=== PATIENT | female | born 1960 | race Caucasian/White ===

== ENCOUNTER 2016-10-17 18:26 | Emergency (ER) | payer MEDICAID ==
[2016-10-17] MEDS ORDERED: ONDANSETRON HCL INJ/PF 4 MG/2 ML SDV IV ONE (18:39)
--- NOTE | 2016-10-17 18:49 | ER Document Report ---
ED General - General Stated Complaint: POSSIBLE SYNCOPE Notes: 56-year-old female presents to the ED after an episode of severe abdominal pain. She was actually in the department because her is a patient, and when she was seen in the room complaining of severe abdominal and back pain. At that point she was noted to be pale and diaphoretic with a blood pressure of 70 and was moved to the trauma room. Seen by me immediately upon arrival in the trauma room. Patient is in severe pain and having trouble answering questions but she does say that she has severe lower abdominal pain radiating to her back abruptly onset today about 50 minutes ago. She has no shortness of breath or chest pain. She has had this kind of pain before and has been to [facility] after her aortic operation with pain like this but has not been reoperated on. Does not know what procedure she had or the name of the surgeon. Also possibly has stents in her heart but denies history of a heart attack. TRAVEL OUTSIDE OF THE [place] IN LAST 30 DAYS: No - Related Data Allergies/Adverse Reactions: No Known Allergies Allergy (Verified 07/15/15 06:09) Past Medical History - Social History Smoking Status: Current Every Day Smoker Family History: Hypertension - Past Medical History Cardiac Medical History: Reports: Hx Hypercholesterolemia, Hx Hypertension Pulmonary Medical History: Reports: Hx Bronchitis, Hx COPD, Hx Pneumonia Denies: Hx Tuberculosis Musculoskeltal Medical History: Reports Hx Arthritis Psychiatric Medical History: Reports: Hx Depression Past Surgical History: Reports: Hx Cholecystectomy, Hx Hysterectomy, Hx Tubal Ligation. Denies: Hx Pacemaker - Immunizations Hx Diphtheria, Pertussis, Tetanus Vaccination: Yes Hx Pneumococcal Vaccination: 01/29/15 Review of Systems - Review of Systems Notes: REVIEW OF SYSTEMS GEN: Denies fever, chills, weight loss ENT: Denies sore throat, nasal discharge, ear pain EYES: Denies blurry vision, eye pain, discharge CV: Denies chest pain, palpitations, edema RESP: Denies cough, shortness of breath, wheezing GI: Severe abdominal pain nausea vomiting MSK: Denies joint pain/swelling, edema, SKIN: Denies rash, skin lesions LYMPH: Denies swollen glands/lymph nodes NEURO: Denies headache, focal weakness or numbness, dizziness PSYCH: Denies depression, suicidal or homicidal ideation PHYSICAL EXAMINATION General: Pale in distress crying Head: Atraumatic, normocephalic ENT: Mouth normal, oropharynx moist, no exudates or tonsillar enlargement Eyes: Conjunctiva normal, pupils equal, lids normal Neck: No JVD, supple, no guarding CVS: Normal rate, regular rhythm, no murmurs Resp: No resp distress, equal and normal breath sounds bilaterally GI: Nondistended, soft, diffuse tenderness without rebound. Midline scar well- healed. Ext: No deformities, no edema, normal range of motion in upper and lower ext. Intact pedal pulses and cap refill bilaterally. Back: No CVA or midline TTP Skin: No rash, warm Lymphatic: No lymphadeopathy noted Neuro: Awake, alert. Face symmetric. GCS 15. Physical Exam - Vital signs Vitals: Resp 13 10/17/16 18:49 Course - Re-evaluation Re-evalutation: 10/17/16 18:47 Acutely ill patient seen immediately by me on arrival. Severe abdominal pain in a patient with a known aortic aneurysm accompanied by pallor sweating and pressure of 70. Throughout her stay in the trauma room in the initial 20 minutes her pressure remained above 120. She had mild tachycardia. In terms of her exam other than her distress she has a nonfocal exam and has good peripheral pulses. I attempted to do a fast scan as well as an aortic scan but the patient retched and vomited and kept moving well I tried to place the probe on her abdomen. Visualized the right upper quadrant and did not see free fluid but had to abort the exam. Her differential includes leaking or ruptured aortic aneurysm new aortic dissection, acute coronary syndrome, pancreatitis or other perforated viscus. Plan will be to do a CT angiogram of the chest abdomen pelvis with the waving of her creatinine, provide fluids and get labs including troponin. Her initial EKG is nonischemic. 10/17/16 19:11 Patient's blood pressure to the 70s. Came up with 1 L of fluid. Ordered CTA but holding the patient's her blood pressure improves. I see an aortic aneurysm which appears to have a graft with poor flow. There is no free fluid. I also see that the patient has a pericardial effusion with some internal echoes and borderline right ventricular bowing. At this point I am concerned for hemorrhagic pericardial effusion versus type a dissection. I immediately placed a call to the I am concerned for AAA. The patient is now more comfortable and can allow me to perform an ultrasound. Divided transfer center at 7:10 PM to speak with cardiothoracic surgery. They provided me the following history about the patient. H/o endovasc AAA repair with graft and bilat renal NILESH 2014. 10/17/16 19:33 I spoke with from findings with cardiovascular surgery. Time I spoke with him I do not have the CT results but I told him of my concerns. He stated that if there is a vascular issue going on he would be happy to accept the patient. Awaiting CT results. My pulmonary read shows extensive penetrating ulcers in the upper aorta without clear dissection or aneurysm, and an intact aortic graft without endoleak. 10/17/16 19:42 Patient is back from CT and her blood pressure is in the 110s. She did get a unit of blood which I ordered. 10/17/16 21:[address] Rivero hospitalist. Dr. Polanco had communicated with patient' s vascular surgeon Dr. Brandon who stated that at this point given her degree of renal artery thrombosis there is not intervene able lesion and they would not do surgery. It also did not mention anticoagulation. Defer this to hospitalist. Dr. Almanza the hospital as he refused admission. 10/17/16 21:30 Vital signs stable sleeping comfortably. - Vital Signs Vital signs: Temp Pulse Resp BP Pulse Ox 97.6 F 16 114/81 94 10/17/16 19:36 10/17/16 21:01 10/17/16 21:01 10/17/16 21:01 - Laboratory Result Diagrams: 10/17/16 18:47 10/17/16 18:47 Laboratory results interpreted by me: 10/17/16 10/17/16 18:47 18:47 WBC 14.4 H RDW 17.1 H Seg Neuts % (Manual) 35 L Lymphocytes % (Manual) 58 H Monocytes % (Manual) 2 L Abs Lymphs (Manual) 9.1 H Carbon Dioxide 21 L Creatinine 1.49 H Est GFR ( Amer) 43 L Est GFR (Non-Af Amer) 36 L - Diagnostic Test Radiology reviewed: Image reviewed, Reports reviewed - EKG Interpretation by Me EKG shows normal: Sinus rhythm Rate: Normal - No acute ST or T-wave changes Critical Care Note - Critical Care Note Total time excluding time spent on procedures (mins): 75 - The above patient is critically ill. Not including procedures, but including direct re-evaluations, speaking with patient and/or consultants, interpreting results, and documenting , I spent the total amount of minute listed listed above on critical care time Discharge - Discharge Clinical Impression: Hypotension Qualifiers: Hypotension type: other hypotension type Qualified Code(s): I95.89 - Other hypotension
[2016-10-17 19:07] LABS: HEMATOCRIT 44.4 % (36.0-47.0); HEMOGLOBIN 14.5 g/dL (12.0-15.5); HGB HCT DIFFERENCE -0.9; MEAN CORPUSCULAR HEMOGLOBIN 27.5 pg (27.0-33.4); MEAN CORPUSCULAR HGB CONC 32.6 g/dL (32.0-36.0); MEAN CORPUSCULAR VOLUME 84 fl (80-97); RED BLOOD COUNT 5.27 10^6/uL (3.72-5.28); RED CELL DISTRIBUTION WIDTH 17.1 % (11.5-14.0); WHITE BLOOD COUNT 14.4 10^3/uL (4.0-10.5)
[2016-10-17 19:37] LABS: ANISOCYTOSIS 1+; BASOPHILS % (MANUAL) 0 % (0-2); EOSINOPHILS % (MANUAL) 0 % (0-6); HYPOCHROMASIA SLIGHT; LYMPHOCYTES % (MANUAL) 58 % (13-45); PLATELET CLUMPS PRESENT; TOTAL CELLS COUNTED 100
[2016-10-17] MEDS ORDERED: FENTANYL CITRATE INJ/PF 100 MCG/2 ML AMPUL IV ONE (20:09)
--- NOTE | 2016-10-17 20:18 | RADIOLOGY REPORT (SQ) ---
EXAM DESCRIPTION: CTA CHEST COMPLETED DATE/TIME: 10/17/2016 7:26 pm REASON FOR STUDY: abdominal pain, h/o aortic aneurysm COMPARISON: Chest CT 07/15/2015 TECHNIQUE: CT scan of the chest performed using helical scanning technique with dynamic intravenous contrast injection. Images reviewed with lung, soft tissue and bone windows. Reconstructed coronal and sagittal MPR images reviewed. Additional 3 dimensional post-processing performed to develop Maximal Intensity Projection images ([place] P). All images stored on PACS. All CT scanners at this facility use dose modulation, iterative reconstruction, and/or weight based d osing when appropriate to reduce radiation dose to as low as reasonably achievable (ALARA). [facility]: Dose Right [facility]: CareDose [facility]: Dose Right [facility]: Teradose 4D [facility]: Smart [employer] CONTRAST TYPE AND DOSE: contrast/concentration: Isovue 370.00 mg/ml; Total Contrast Delivered: 100.0 ml; Total Saline Delivered: 60.0 ml RENAL FUNCTION: Due to the condition of the patient, renal function not obtained RADIATION DOSE: . LIMITATIONS: None. FINDINGS: LUNGS AND PLEURA: No masses, infiltrates, pneumothorax. No pleural effusions, calcificati ons. AORTA AND GREAT VESSELS: Extensive atherosclerotic change. There is a small focal aneurysm along the inferior aortic arch which is stable in appearance since 11/01/2015. Mural thrombus diffusely identif ied. No evidence for the extravasation. HEART: No pericardial effusion. PULMONARY ARTERIES: No emboli visualized in the main pulmonary arteries or the segmental branches. HILAR AND MEDIASTINAL STRUCTURES: No identified masses or abnormal nodes. HARDWARE: None in the chest. UPPER ABDOMEN: See abdomen CT. THYROID AND OTHER SOFT TISSUES: No masses. No adenopathy. BONES: No acute or significant finding. 3D MIPS: Confirm above findings. OTHER: No other significant finding. IMPRESSION: Diffuse atherosclerotic change of the thoracic aorta with mural thrombus and a small inf erior aneurysm along the aortic arch which is unchanged. No acute findings. TECHNICAL DOCUMENTATION: JOB ID: [id number] Quality ID # [id number]: Final reports with documentation of one or more dose reduction techniques (e.g., Au tomated exposure control, adjustment of the mA and/or kV according to patient size, use of iterative reconstruction technique) 2010 [employer]- All Rights Reserved
--- NOTE | 2016-10-17 20:30 | RADIOLOGY REPORT (SQ) ---
EXAM DESCRIPTION: CTA ABDOMEN/PELVIS W WO COMPLETED DATE/TIME: 10/17/2016 7:27 pm REASON FOR STUDY: abdominal pain, h/o aortic aneurysm COMPARISON: 2015 back to 2011 TECHNIQUE: CT scan of the abdominal aorta extending to the iliac bifurcation performed with intraven ous contrast using helical scanning technique with dynamic intravenous contrast injection. Images rev iewed with lung, soft tissue, and bone windows. Reconstructed coronal and sagittal MPR images reviewe d. All images stored on PACS. Advanced 3D imaging as volume rendering, MIPS, SSD performed? No All CT scanners at this facility use dose modulation, iterative reconstruction, and/or weight based d osing when appropriate to reduce radiation dose to as low as reasonably achievable (ALARA). [facility]: Dose Right [facility]: CareDose [facility]: Dose Right [facility]: Teradose 4D [facility]: [employer] ( HLM ) CONTRAST TYPE AND DOSE: 100 Isovue 370- low osmolar. RENAL FUNCTION: Not performed. Emergency status LIMITATIONS: None. FINDINGS: POST-CONTRAST IMAGING: AORTA AND VESSELS: Status post stent graft abdominal aortic aneurysm. No evidence for endovascular l eak. LUNG BASES: No significant findings. No nodules or infiltrates. LIVER: Normal size. No masses or dilated ducts. SPLEEN: Normal size. No focal lesions. PANCREAS: No masses. No significant calcifications. No adjacent inflammation or peripancreatic fluid collections. Pancreatic duct not dilated. GALLBLADDER: Surgically absent. ADRENAL GLANDS: Left adrenal mass now measures 4.7 cm compared to 4 cm and 2012. Indeterminate Houns field units. RIGHT KIDNEY AND URETER: No mass, calculi or urinary tract obstruction. LEFT KIDNEY AND URETER: Poor perfusion of the left kidney. No contrast in the collecting system on d elayed images. No obstruction. RETROPERITONEUM: No retroperitoneal adenopathy, hemorrhage or masses. BOWEL AND PERITONEAL CAVITY: No masses or inflammatory changes. No free fluid or peritoneal masses. APPENDIX: Normal. ABDOMINAL WALL: No masses. No hernias. BONY STRUCTURES: No significant or acute findings. 3-D IMAGING: Confirms the above findings. OTHER: No other significant finding. IMPRESSION: Aortic stent graft. No evidence for leak of the treated aneurysm. Renal stents. Poor perfusion of the left kidney with no contrast in the collecting system on delayed images. Suspe ct emboli. Slight increased size of the left adrenal gland since 2011. COMMENT: This report was called to dr greer at20:24 on 10/17/2016. TECHNICAL DOCUMENTATION: JOB ID: [id number] Quality ID # [id number]: Final reports with documentation of one or more dose reduction techniques (e.g., Au tomated exposure control, adjustment of the mA and/or kV according to patient size, use of iterative reconstruction technique) 2010 [employer]- All Rights Reserved
[2016-10-17 21:01] LABS: ANION GAP 18 (5-19); BLOOD UREA NITROGEN 14 mg/dL (7-20); CALCIUM 9.8 mg/dL (8.4-10.2); CARBON DIOXIDE 21 mmol/L (22-30); CHLORIDE 103 mmol/L (98-107); CREATININE RESULT 1.49 mg/dL (0.52-1.25); GLUCOSE 107 mg/dL (75-110); POTASSIUM 4.2 mmol/L (3.6-5.0); SODIUM 141.5 mmol/L (137-145)
[2016-10-18] MEDS: MORPHINE SULFATE IR 30 MG TABLET PO PRN ×2 (00:22→05:40)
[2016-10-18 02:27] LABS: APPEARANCE,URINE CLEAR; BILIRUBIN,URINE NEGATIVE (NEGATIVE); GLUCOSE, URINE NEGATIVE (NEGATIVE); KETONES,URINE NEGATIVE (NEGATIVE); LEUKOCYTE ESTERASE,URINE NEGATIVE (NEGATIVE); NITRITE,URINE NEGATIVE (NEGATIVE); PROTEIN,URINE NEGATIVE (NEGATIVE); URINE SPECIFIC GRAVITY 1.044; UROBILINOGEN,URINE NEGATIVE mg/dL (<2.0)
[2016-10-18 07:08] LABS: ANION GAP 9 (5-19); BLOOD UREA NITROGEN 13 mg/dL (7-20); CALCIUM 8.7 mg/dL (8.4-10.2); CARBON DIOXIDE 23 mmol/L (22-30); CHLORIDE 108 mmol/L (98-107); CREATININE RESULT 1.53 mg/dL (0.52-1.25); GLUCOSE 84 mg/dL (75-110); POTASSIUM 4.8 mmol/L (3.6-5.0); SODIUM 140.1 mmol/L (137-145)
--- NOTE | 2016-10-18 08:17 | ER Document Report ---
Doctor's Note Notes: 10/18/16 08:15 CARE signed out to me by Dr. Romero ED and at 0 6 AM. Patient is pending transfer to [facility] and has been here for 10 hours awaiting a bed. Nurses have called this morning and is no update status on the bed currently. Seen and evaluated at the bedside review of history shows that she presented 1846 last night with severe abdominal pain radiating into her back with history of abdominal aortic aneurysm. Blood pressure was in the 70s around 1910 she received 1 L of fluid they consulted CT thoracic surgery Dr. Brandon in [place] who was previously operated on her. Also talked with Dr. Jenkins phone and patient was administered blood. According to the notes Dr. Lara that she said it was not surgical at this point CTA showed a mural thrombus with inferior aneurysm and poor perfusion to the left kidney with no flow suspecting emboli. She is assessed at the bedside awake alert a little drowsy from the pain medication that she has received planing of similar abdominal and back pain that she had when she came in last night. She has equal bilateral femoral dorsalis pedis posterior tibial pulses with good perfusion and no neurological deficits distally. Blood pressure is currently 98/69. I am redrawing a CBC at this time.
[2016-10-18] MEDS ORDERED: ONDANSETRON HCL INJ/PF 4 MG/2 ML SDV IV ONE (08:18)
[2016-10-18 08:33] LABS: ABSOLUTE BASOPHILS # (AUTO) 0.1 10^3/uL (0.0-0.2); ABSOLUTE EOSINOPHILS # (AUTO) 0.1 10^3/uL (0.0-0.6); ABSOLUTE LYMPHOCYTES (AUTO) 3.3 10^3/uL (0.5-4.7); ABSOLUTE MONOCYTES (AUTO) 0.6 10^3/uL (0.1-1.4); ABSOLUTE NEUT (AUTO) 6.2 10^3/uL (1.7-8.2); BASOPHILS % (AUTO) 1.1 % (0-2); EOSINOPHILS % (AUTO) 1.2 % (0-6); HEMOGLOBIN 13.5 g/dL (12.0-15.5); HGB HCT DIFFERENCE -0.5; LYMPHOCYTES % (AUTO) 31.9 % (13-45); MEAN CORPUSCULAR HEMOGLOBIN 27.6 pg (27.0-33.4); MEAN CORPUSCULAR HGB CONC 32.9 g/dL (32.0-36.0); MEAN CORPUSCULAR VOLUME 84 fl (80-97); MONOCYTES % (AUTO) 5.9 % (3-13); RED BLOOD COUNT 4.88 10^6/uL (3.72-5.28); RED CELL DISTRIBUTION WIDTH 17.2 % (11.5-14.0); SEGMENTED NEUTROPHILS % (AUTO) 59.9 % (42-78); WHITE BLOOD COUNT 10.4 10^3/uL (4.0-10.5)
[2016-10-18] MEDS ORDERED: NORMAL SALINE 1000 ML 1,000 ML IV ONE (10:01)
--- NOTE | 2016-10-18 10:01 | ER Document Report ---
Doctor's Note Notes: 10/18/16 09:59 Patient reassessed at bedside blood pressure is 87 I called [place] they do not have any beds available advice and I spoke with the nurse at the cardiovascular center who is able to read me the report from her repair. She said she had an endovascular AAA repair in July 2014 with an Endologix graft with bilateral renal chimney stent graft. They are contacting me back for vascular surgery for transfer to [place] she is getting additional fluid bolus.
--- NOTE | 2016-10-18 10:12 | ER Document Report ---
Doctor's Note Notes: 10/18/16 10:11 Emili Esteban called back and Dr. archibald vascular surgeon accepted the transfer the patient they are looking for a bed right now and will send helicopter transport. Patient is receiving IV fluid boluses reassessed again at the bedside awake and alert abdomen is soft good femoral dorsalis pedis posterior tibial distal pulses with good perfusion and no neurological deficit.
[2016-10-18 13:32] VITALS: BP 103/66
--- NOTE | 2016-10-19 16:16 | EKG REPORT ---
SEVERITY:- ABNORMAL ECG - SINUS RHYTHM NONSPECIFIC T ABNORMALITIES, LATERAL LEADS : Confirmed by: Chasity Welch MD 19-Oct-2016 16:16:25
--- NOTE | 2016-10-19 16:16 | EKG REPORT ---
SEVERITY:- BORDERLINE ECG - SINUS RHYTHM ABERRANT COMPLEX, POSSIBLY SUPRAVENTRICULAR PROBABLE LEFT ATRIAL ABNORMALITY : Confirmed by: Chasity Welch MD 19-Oct-2016 16:16:21
== END 2016-10-18 13:34 | disposition short-term general hospital (02) ==
LOC: ER 18:26
DX: I95.9 Hypotension, unspecified (principal); I71.2 Thoracic aortic aneurysm, without rupture; N28.0 Ischemia and infarction of kidney; I31.3 Pericardial effusion (noninflammatory); R11.10 Vomiting, unspecified; R10.30 Lower abdominal pain, unspecified; R10.817 Generalized abdominal tenderness; R61 Generalized hyperhidrosis; R11.2 Nausea with vomiting, unspecified; R23.1 Pallor; F17.200 Nicotine dependence, unspecified, uncomplicated; I10 Essential (primary) hypertension; J44.9 Chronic obstructive pulmonary disease, unspecified; Z90.49 Acquired absence of other specified parts of digestive tract; Z90.710 Acquired absence of both cervix and uterus; Z98.890 Other specified postprocedural states
CPT/HCPCS: 96376; 99291; 99292; 96361; 51702; 96374; 96375; 86900; 86901; 36415; 36430; 86870; 86850; 86922; 82962; 83690; 85025; 80048; 81001; 84484; 86920; 71275; 74174; 93010 ×2; P9016; J3010; J2405 ×2; J7030

== ENCOUNTER 2016-11-03 14:06 | Emergency (ER) | payer MEDICAID ==
[2016-11-03] MEDS ORDERED: NALOXONE HCL INJ/PF 0.4 MG/1 ML SDV ONE (14:20)
[2016-11-03] MEDS ORDERED: NALOXONE HCL INJ/PF 0.4 MG/1 ML SDV IV ONE ×2 (14:26→14:50)
[2016-11-03] MEDS ORDERED: NORMAL SALINE 1000 ML 1,000 ML IV ONE ×3 (14:26→18:08)
[2016-11-03] MEDS ORDERED: ONDANSETRON HCL INJ/PF 4 MG/2 ML SDV IV ONE (14:26)
--- NOTE | 2016-11-03 14:34 | ER Document Report ---
ED General - General Mode of Arrival: Medic Information source: Patient, Relative, Emergency Med Personnel TRAVEL OUTSIDE OF THE [place] IN LAST 30 DAYS: No <TIFFANIE HOYT - Last Filed: 11/03/16 22:32> <KRISTINA THOMSON - Last Filed: 11/04/16 00:07> - General Stated Complaint: AMS Time Seen by Provider: 11/03/16 14:12 Notes: Patient is a 56 year old female that presents to the emergency department today after not acting herself today per family at bedside. Patient is disoriented with snoring respirations on arrival. Daughter at bedside states that the patient was recently transferred to to a tertiary care center within the last two weeks secondary to "blood clots in her kidneys". Family states that this morning the patient was generally weak, unable to ambulate by herself to the bathroom, but had no focal neurological deficits. Daughter at bedside states when she woke up this morning the patient was covered in stool. Family states the patient has been coughing more than usual recently. Patient complains of nausea. Family states the patient is not on home oxygen. (TIFFANIE HOYT) - Related Data Allergies/Adverse Reactions: No Known Allergies Allergy (Verified 11/03/16 20:44) Past Medical History - General Information source: Relative - daughter at bedside, [facility] Records - Social History Smoking Status: Current Every Day Smoker Cigarette use (# per day): Yes Frequency of alcohol use: None Drug Abuse: None Lives with: Family Family History: Reviewed & Not Pertinent, Hypertension - Past Medical History Cardiac Medical History: Reports: Hx Hypercholesterolemia, Hx Hypertension Pulmonary Medical History: Reports: Hx Bronchitis, Hx COPD, Hx Pneumonia Renal/ Medical History: Reports: Other - "blood clots in kidneys" Musculoskeltal Medical History: Reports Hx Arthritis Psychiatric Medical History: Reports: Hx Depression Past Surgical History: Reports: Hx Cholecystectomy, Hx Hysterectomy, Hx Tubal Ligation - Immunizations Hx Diphtheria, Pertussis, Tetanus Vaccination: Yes Hx Pneumococcal Vaccination: 01/29/15 <TIFFANIE HOYT - Last Filed: 11/03/16 22:32> Review of Systems - Review of Systems -: Yes ROS unobtainable due to patient's medical condition <TIFFANIE HOYT - Last Filed: 11/03/16 22:32> Physical Exam <TIFFANIE HOYT - Last Filed: 11/03/16 22:32> <KRISTINA THOMSON - Last Filed: 11/04/16 00:07> - Vital signs Vitals: Resp 7 L 11/03/16 14:11 - Notes Notes: PHYSICAL EXAM GENERAL: Somnolent, disoriented, awakens and interacts after 0.2mg of narcan. No acute distress. HEAD: Normocephalic, atraumatic. EYES: Pupils are pinpoint bilaterally. Extraocular movements intact. ENT: Oral mucosa moist, tongue midline. NECK: Full range of motion. Supple. Trachea midline. LUNGS: Prolonged expiratory phase with expiratory wheezing bilaterally. Snoring respirations, 7-9 respirations a minute initially, 16-18 respirations a minute after 0.2mg narcan. HEART: Regular rate and rhythm. No murmurs, gallops, or rubs. ABDOMEN: Multiple areas of ecchymosis across abdomen. Soft, non-tender. Non- distended. Bowel sounds present in all 4 quadrants. EXTREMITIES: Moves all 4 extremities spontaneously. No edema, feet are cool to the touch bilaterally, No cyanosis. Diminished peripheral pulses, 6 second capillary refill in feet. NEUROLOGICAL: Disoriented, mumbled speech. PSYCH: unable to assess SKIN: Feet are cool to the touch bilaterally, dry, normal turgor. Diffuse areas of ecchymosis across abdomen. (TIFFANIE HOYT) Course - Laboratory Result Diagrams: 11/03/16 15:08 11/03/16 18:10 - Consults Dr. Armas Time consulted: 22:25 - [facility] Vascular Fellow, states he does not feel this patient needs direct admission, recommends ED to ED transfer and they will evaluate the patient upon her arrival. <TIFFANIE HOYT - Last Filed: 11/03/16 22:32> - Laboratory Result Diagrams: 11/03/16 15:08 11/03/16 22:30 <KRISTINA THOMSON - Last Filed: 11/04/16 00:07> - Re-evaluation Re-evalutation: 11/03/16 14:50 Patient's respirations again at 8 per minute, end-tidal CO2 davidson from 33 to 46. Patient arouses to verbal stimuli and the end-tidal CO2 falls appropriately when awakened. Will administer 0.2 mg of Narcan. 11/03/16 16:[address] Robbins about admission, he would like to rule out renal artery stenosis, occlusion, or hydronephrosis to be sure that surgical intervention by urology or vascular surgery is not necessary prior to admission. Dr. Robbins did speak with Dr. Lynch who informed him that the proper imaging could not be done at this facility. 11/03/16 17:[address] Somers, [facility] vascular surgery, agrees to consultation but does not believe he should admit the patient, states she should be admitted to medicine. He does note that the patient has been noncompliant with postoperative follow-up visits. 11/03/16 18:[address] Carnes, [facility] internal medicine, he is happy to accept the patient but does indicate there is a long waiting list. (TIFFANIE HOYT) 11/03/16 23:[address] Armas [facility] vascular fellow, agrees that the patient should be evaluated, does not feel the need a direct admission recommend speaking with the ER doc. Spoke with Dr. Kofi Joe at [facility] in the emergency department, agrees to accept the patient has an ER to ER transfer will order a renal artery ultrasound or other appropriate imaging there. 11/04/16 00:02 CBC does not show any leukocytosis, there is anemia with hemoglobin 10.9, CMP shows hyperkalemia with potassium 6.5, there are no peak T waves on EKG, there is acute renal failure significantly changed from prior visit, today BUN is 43 and creatinine is 3.5, LFTs are normal, urinalysis shows large leukocyte esterase and greater than 182 WBCs. Patient is treated with Rocephin for the urinary tract infection, hydrated for the acute renal failure, she now is having acceptable urine output. Hyperkalemia was treated with hydration, albuterol, insulin, glucose, sodium bicarb, calcium. Chest x-ray shows minimal right basilar atelectasis, CT scan of the head shows no acute process. Arterial blood gas shows a pH of 7.26, PCO2 42.5, PO2 of 87.3, suspect this is actually mixed rather than arterial, venous blood gas showed similar pH at 7.22. I did attempt to admit the patient to this hospital however I was told that she might need surgical intervention and he should perform imaging to investigate the possibility of renal artery occlusion or hydronephrosis. Dr. Robbins then discussed this case with Dr. Lynch the head of radiology who reportedly reviewed her CAT scan from approximately 2 weeks ago and stated that based off of the partial occlusion of the renal artery on the CAT scan there is no further imaging we can perform here that would give us any further information, recommends transfer to a facility with vascular surgery. I did discuss the patient with the vascular surgeon on-call at [facility] who agrees to consult but does not feel that they would need emergent intervention at this time. By internal medicine as indicated above is happy to accept the patient however there is a long waiting list. As this is potentially a time sensitive diagnosis needing further imaging and intervention I did consult [facility], vascular surgery fellow on-call agrees that the patient should be seen however does not need to be directed mira, spoke with the attending in the emergency department who accepted the patient as an ER to ER transfer for further imaging. Patient has not required any Narcan since 3:00 pm, hypotension has since resolved, patient is sleeping but easily aroused by verbal stimuli and is oriented to person and place and time. She is quite belligerent regarding going to any other hospital however eventually understands that as we do not have vascular surgery here we cannot provide the appropriate care. Family is agreeable to the transfer as well. 11/04/16 00:05 Patient did require multiple fluid boluses for her hypotension, frequent reassessment for her alteration in mental status which has since cleared. Repeat blood work shows improvement in the potassium and the renal function. ( KRISTINA THOMSON) - Vital Signs Vital signs: Temp Pulse Resp BP Pulse Ox 98.5 F 18 104/55 L 96 11/03/16 20:00 11/03/16 23:31 11/03/16 23:31 11/03/16 23:31 - Laboratory Laboratory results interpreted by tx: 11/03/16 11/03/16 11/03/16 15:08 15:08 15:08 Hgb 10.9 L Hct 33.3 L RDW 17.5 H PT INR ABG pH ABG HCO3 ABG Total CO2 VBG pH 7.22 L Potassium 6.5 H* Chloride Carbon Dioxide BUN 43 H Creatinine 3.50 H Est GFR ( Amer) 16 L Est GFR (Non-Af Amer) 13 L Glucose Calcium Direct Bilirubin 0.5 H Total Protein 8.4 H Urine Protein Ur Leukocyte Esterase 11/03/16 11/03/16 11/03/16 15:15 15:22 18:10 Hgb Hct RDW PT 57.9 H* INR 6.30 H* ABG pH 7.26 L ABG HCO3 18.8 L ABG Total CO2 20.1 L VBG pH Potassium Chloride Carbon Dioxide BUN Creatinine Est GFR ( Amer) Est GFR (Non-Af Amer) Glucose Calcium Direct Bilirubin Total Protein Urine Protein 100 H Ur Leukocyte Esterase LARGE H 11/03/16 11/03/16 18:10 22:30 Hgb Hct RDW PT INR ABG pH ABG HCO3 ABG Total CO2 VBG pH Potassium 5.6 H 5.9 H Chloride 112 H Carbon Dioxide 18 L BUN 40 H 36 H Creatinine 3.07 H 2.40 H Est GFR ( Amer) 19 L 25 L Est GFR (Non-Af Amer) 16 L 21 L Glucose 171 H Calcium 8.2 L 8.2 L Direct Bilirubin Total Protein Urine Protein Ur Leukocyte Esterase - EKG Interpretation by Me Additional EKG results interpreted by me: 11/04/16 00:06 Initial EKG shows sinus rhythm rate is 79, normal, normal intervals, no ST segment elevations or depressions, no T-wave inversions per my interpretation. Repeat EKG shows sinus rhythm at a rate of 88, normal axis, normal intervals, no ST segment elevations or depressions, no T-wave inversions per my interpretation. (KRISTINA THOMSON) Critical Care Note - Critical Care Note Total time excluding time spent on procedures (mins): 90 <KRISTINA THOMSON - Last Filed: 11/04/16 00:07> Discharge <TIFFANIE HOYT - Last Filed: 11/03/16 22:32> <KRISTINA THOMSON - Last Filed: 11/04/16 00:07> - Discharge Clinical Impression: Hyperkalemia, diminished renal excretion, Metabolic acidosis, Delirium, Adv eff opiates Acute renal failure Qualifiers: Acute renal failure type: unspecified Qualified Code(s): N17.9 - Acute kidney failure, unspecified UTI (urinary tract infection) Qualifiers: Urinary tract infection type: acute cystitis Hematuria presence: with hematuria Qualified Code(s): N30.01 - Acute cystitis with hematuria Condition: Critical Disposition: [facility] Scribe Attestation: 11/04/16 00:07 I personally performed the services described in the documentation, reviewed and edited the documentation which was dictated to the scribe in my presence, and it accurately records my words and actions. (KRISTINA THOMSON) Scribe Documentation - Scribe Written by Jadeibe:: Eric Calle, 11/03/2016 1452 acting as scribe for :: Denise <TIFFANIE HOYT - Last Filed: 11/03/16 22:32>
[2016-11-03 15:18] LABS: VENOUS BLOOD BASE EXCESS -6.3 mmol/L; VENOUS BLOOD HCO3 21.6 mmol/L (20-32); VENOUS BLOOD PCO2 54.1 mmHg (35-63); VENOUS BLOOD PH 7.22 (7.30-7.42)
[2016-11-03 15:21] LABS: ABSOLUTE EOSINOPHILS # (AUTO) 0.2 10^3/uL (0.0-0.6); ABSOLUTE LYMPHOCYTES (AUTO) 2.8 10^3/uL (0.5-4.7); ABSOLUTE MONOCYTES (AUTO) 0.6 10^3/uL (0.1-1.4); ABSOLUTE NEUT (AUTO) 5.8 10^3/uL (1.7-8.2); BASOPHILS % (AUTO) 0.3 % (0-2); HEMATOCRIT 33.3 % (36.0-47.0); HEMOGLOBIN 10.9 g/dL (12.0-15.5); HGB HCT DIFFERENCE -0.6; LYMPHOCYTES % (AUTO) 29.6 % (13-45); MEAN CORPUSCULAR HEMOGLOBIN 27.1 pg (27.0-33.4); MEAN CORPUSCULAR HGB CONC 32.6 g/dL (32.0-36.0); MEAN CORPUSCULAR VOLUME 83 fl (80-97); MONOCYTES % (AUTO) 6.8 % (3-13); RED BLOOD COUNT 4.01 10^6/uL (3.72-5.28); RED CELL DISTRIBUTION WIDTH 17.5 % (11.5-14.0); SEGMENTED NEUTROPHILS % (AUTO) 61.3 % (42-78); WHITE BLOOD COUNT 9.5 10^3/uL (4.0-10.5)
[2016-11-03 15:31] LABS: ALANINE AMINOTRANSFERASE 27 U/L (9-52); ALKALINE PHOSPHATASE 115 U/L (38-126); ANION GAP 13 (5-19); ASPARTATE AMINO TRANSFERASE 21 U/L (14-36); BILIRUBIN,DIRECT 0.5 mg/dL (0.0-0.4); BILIRUBIN,TOTAL 0.5 mg/dL (0.2-1.3); BLOOD UREA NITROGEN 43 mg/dL (7-20); CALCIUM 8.5 mg/dL (8.4-10.2); CARBON DIOXIDE 22 mmol/L (22-30); CHLORIDE 103 mmol/L (98-107); GLUCOSE 77 mg/dL (75-110); SODIUM 138.3 mmol/L (137-145); TOTAL PROTEIN 8.4 g/dL (6.3-8.2)
[2016-11-03 15:33] LABS: POTASSIUM 6.5 mmol/L (3.6-5.0)
[2016-11-03 15:52] LABS: ARTERIAL BLOOD BASE EXCESS -7.8 mmol/L; ARTERIAL BLOOD O2 SATURATION 95.4 % (94-98)
[2016-11-03 15:56] LABS: APPEARANCE,URINE TURBID; BILIRUBIN,URINE NEGATIVE (NEGATIVE); GLUCOSE, URINE NEGATIVE (NEGATIVE); KETONES,URINE NEGATIVE (NEGATIVE); LEUKOCYTE ESTERASE,URINE LARGE (NEGATIVE); NITRITE,URINE NEGATIVE (NEGATIVE); PROTEIN,URINE 100 mg/dL (NEGATIVE); URINE SPECIFIC GRAVITY 1.005; UROBILINOGEN,URINE NEGATIVE mg/dL (<2.0)
[2016-11-03] MEDS ORDERED: INSULIN REG, HUMAN 100 UNIT/ML 3 ML VIAL (PYX) SUBCUT ONE (16:01)
[2016-11-03] MEDS ORDERED: DEXTROSE 50%-WATER 25 GM/50 ML DISP.SYRIN IV ONE (16:01)
[2016-11-03] MEDS ORDERED: ALBUTEROL SULFATE 0.083% NEB 2.5 MG/3 ML AMPUL NEB ONE (16:01)
[2016-11-03] MEDS ORDERED: CALCIUM GLUCONATE 1000 MG/10 ML INJ IV ONE (16:01)
[2016-11-03] MEDS ORDERED: INSULIN REG, HUMAN 100 UNIT/ML 3 ML VIAL (PYX) ONE (17:48)
[2016-11-03] MEDS ORDERED: CEFTRIAXONE 1 GM/D5W RTU 50 ML IV ONE (18:10)
[2016-11-03] MEDS ORDERED: SODIUM BICARBONATE 8.4% INJ 50 MEQ/50 ML DISP.SYRIN IV ONE (18:10)
[2016-11-03 18:49] LABS: PROTHROMBIN TIME 57.9 SEC (11.4-15.4)
--- NOTE | 2016-11-03 19:13 | RADIOLOGY REPORT (SQ) ---
EXAM DESCRIPTION: CT HEAD WITHOUT COMPLETED DATE/TIME: 11/03/2016 7:05 pm REASON FOR STUDY: AMS COMPARISON: 01/24/2015 TECHNIQUE: Axial images acquired through the brain without intravenous contrast. Images reviewed wi th bone, brain and subdural windows. Images stored on PACS. All CT scanners at this facility use dose modulation, iterative reconstruction, and/or weight based d osing when appropriate to reduce radiation dose to as low as reasonably achievable (ALARA). [facility]: Dose Right [facility]: CareDose [facility]: Dose Right [facility]: Teradose 4D [facility]: [employer] RADIATION DOSE: mGy. LIMITATIONS: None. FINDINGS: VENTRICLES: Normal size and contour. CEREBRUM: No masses. No hemorrhage. No midline shift. Normal calderón/white matter differentiation. N o evidence for acute infarction. CEREBELLUM: No masses. No hemorrhage. No alteration of density. No evidence for acute infarction. EXTRAAXIAL SPACES: No fluid collections. No masses. ORBITS AND GLOBE: No intra- or extraconal masses. Normal contour of globe without masses. CALVARIUM: No fracture. PARANASAL SINUSES: No fluid or mucosal thickening. SOFT TISSUES: No mass or hematoma. OTHER: No other significant finding. IMPRESSION: NORMAL BRAIN CT WITHOUT CONTRAST. TECHNICAL DOCUMENTATION: JOB ID: [id number] Quality ID # [id number]: Final reports with documentation of one or more dose reduction techniques (e.g., Au tomated exposure control, adjustment of the mA and/or kV according to patient size, use of iterative reconstruction technique) 2010 [employer]- All Rights Reserved
--- NOTE | 2016-11-03 19:22 | RADIOLOGY REPORT (SQ) ---
EXAM DESCRIPTION: CHEST SINGLE VIEW COMPLETED DATE/TIME: 11/03/2016 7:10 pm REASON FOR STUDY: AMS, hypoxia COMPARISON: 11/01/2015 EXAM PARAMETERS: NUMBER OF VIEWS: One view. TECHNIQUE: Single frontal radiographic view of the chest acquired. RADIATION DOSE: NA LIMITATIONS: None. FINDINGS: LUNGS AND PLEURA: There is minimal airspace disease in the periphery of the right lower lo be. This is most consistent with atelectasis. MEDIASTINUM AND HILAR STRUCTURES: No masses. Contour normal. HEART AND VASCULAR STRUCTURES: Heart normal in size. Normal vasculature. BONES: No acute findings. HARDWARE: None in the chest. OTHER: No other significant finding. IMPRESSION: Minimal right basilar atelectasis. TECHNICAL DOCUMENTATION: JOB ID: [id number]
[2016-11-03 21:08] LABS: ANION GAP 7 (5-19); BLOOD UREA NITROGEN 40 mg/dL (7-20); CALCIUM 8.2 mg/dL (8.4-10.2); CARBON DIOXIDE 24 mmol/L (22-30); CHLORIDE 107 mmol/L (98-107); CREATININE RESULT 3.07 mg/dL (0.52-1.25); GLUCOSE 171 mg/dL (75-110); POTASSIUM 5.6 mmol/L (3.6-5.0); SODIUM 138.3 mmol/L (137-145)
[2016-11-03] MEDS ORDERED: NORMAL SALINE 1000 ML 1,000 ML IV PRN (22:32)
[2016-11-03 23:11] LABS: ANION GAP 10 (5-19); BLOOD UREA NITROGEN 36 mg/dL (7-20); CALCIUM 8.2 mg/dL (8.4-10.2); CARBON DIOXIDE 18 mmol/L (22-30); CHLORIDE 112 mmol/L (98-107); GLUCOSE 78 mg/dL (75-110); POTASSIUM 5.9 mmol/L (3.6-5.0); SODIUM 139.6 mmol/L (137-145)
[2016-11-04 00:29] VITALS: BP 105/59
--- NOTE | 2016-11-04 12:50 | EKG REPORT ---
SEVERITY:- NORMAL ECG - SINUS RHYTHM : Confirmed by: Mayte Aguirre 04-Nov-2016 12:48:54
--- NOTE | 2016-11-04 12:50 | EKG REPORT ---
SEVERITY:- NORMAL ECG - SINUS RHYTHM : Confirmed by: Mayte Aguirre 04-Nov-2016 12:48:50
== END 2016-11-04 00:43 | disposition short-term general hospital (02) ==
LOC: ER 14:06
DX: N17.9 Acute kidney failure, unspecified (principal); N28.0 Ischemia and infarction of kidney; N30.01 Acute cystitis with hematuria; I95.9 Hypotension, unspecified; E87.5 Hyperkalemia; R40.0 Somnolence; R41.0 Disorientation, unspecified; T40.605A Adverse effect of unspecified narcotics, initial encounter; E87.2 Acidosis; D64.9 Anemia, unspecified; R53.1 Weakness; R05 Cough; R11.0 Nausea; I10 Essential (primary) hypertension; F17.210 Nicotine dependence, cigarettes, uncomplicated; J44.9 Chronic obstructive pulmonary disease, unspecified; R58 Hemorrhage, not elsewhere classified; Z98.890 Other specified postprocedural states
CPT/HCPCS: 93005; 96376; 94640; 99291; 99292; 96361; 51701; 51702; 96375; 96365; 96366; 96368; 36415; 87040; 87086; 82803 ×2; 85025; 85610; 87088; 80048; 80053; 81001; 87186; 83605; 83880; 71010; 70450; 93010; 36600; J0610; J3490 ×2; J2310; J1815; J2405; J7030; J0696

== ENCOUNTER 2016-12-25 00:13 | Emergency (ER) | payer MEDICAID ==
[2016-12-25] MEDS ORDERED: NORMAL SALINE 1000 ML 1,000 ML IV PRN (00:23)
[2016-12-25] MEDS ORDERED: KETAMINE HCL INJ 500 MG/10 ML VIAL IV ONE (00:32)
[2016-12-25 00:41] LABS: ABSOLUTE BASOPHILS # (AUTO) 0.1 10^3/uL (0.0-0.2); ABSOLUTE EOSINOPHILS # (AUTO) 0.4 10^3/uL (0.0-0.6); ABSOLUTE LYMPHOCYTES (AUTO) 4.2 10^3/uL (0.5-4.7); ABSOLUTE MONOCYTES (AUTO) 0.5 10^3/uL (0.1-1.4); BASOPHILS % (AUTO) 1.3 % (0-2); EOSINOPHILS % (AUTO) 3.8 % (0-6); HEMATOCRIT 32.1 % (36.0-47.0); HEMOGLOBIN 10.6 g/dL (12.0-15.5); HGB HCT DIFFERENCE -0.3; MEAN CORPUSCULAR HEMOGLOBIN 28.2 pg (27.0-33.4); MEAN CORPUSCULAR HGB CONC 33.1 g/dL (32.0-36.0); MEAN CORPUSCULAR VOLUME 85 fl (80-97); MONOCYTES % (AUTO) 4.9 % (3-13); RED BLOOD COUNT 3.76 10^6/uL (3.72-5.28); RED CELL DISTRIBUTION WIDTH 17.5 % (11.5-14.0); WHITE BLOOD COUNT 10.2 10^3/uL (4.0-10.5)
[2016-12-25 00:50] LABS: PROTHROMBIN TIME 13.1 SEC (11.4-15.4)
[2016-12-25 00:51] LABS: PARTIAL THROMBOPLASTIN TIME 33.5 SEC (23.5-35.8)
[2016-12-25 00:53] LABS: VENOUS BLOOD BASE EXCESS -4.9 mmol/L; VENOUS BLOOD HCO3 23.5 mmol/L (20-32); VENOUS BLOOD PCO2 61.3 mmHg (35-63); VENOUS BLOOD PH 7.2 (7.30-7.42)
[2016-12-25 00:59] LABS: ALANINE AMINOTRANSFERASE 21 U/L (9-52); ALBUMIN 4.2 g/dL (3.5-5.0); ALKALINE PHOSPHATASE 119 U/L (38-126); ANION GAP 16 (5-19); ASPARTATE AMINO TRANSFERASE 21 U/L (14-36); BILIRUBIN,DIRECT 0.5 mg/dL (0.0-0.4); BILIRUBIN,TOTAL 0.7 mg/dL (0.2-1.3); BLOOD UREA NITROGEN 40 mg/dL (7-20); CALCIUM 8.9 mg/dL (8.4-10.2); CARBON DIOXIDE 19 mmol/L (22-30); CHLORIDE 99 mmol/L (98-107); CREATINE KINASE 283 U/L (30-135); CREATININE RESULT 5.73 mg/dL (0.52-1.25); GLUCOSE 95 mg/dL (75-110); LIPASE 101.5 U/L (23-300); POTASSIUM 4.8 mmol/L (3.6-5.0); SODIUM 133.7 mmol/L (137-145); TOTAL PROTEIN 7.4 g/dL (6.3-8.2)
[2016-12-25 01:00] LABS: ALCOHOL < 10 mg/dL (NONE DETECTED)
--- NOTE | 2016-12-25 01:30 | ER Document Report ---
ED GI/ - General Chief Complaint: Abdominal Pain Stated Complaint: ABDOMINAL PAIN Time Seen by Provider: 12/25/16 00:18 Notes: The patient is a 56-year-old female, past medical history AAA (w/ endovascular repair), prior renal artery infarcts, CKD, chronic back pain, presents by EMS with 1 week of worsening abdominal pain and back pain. She was hypotensive to 70/30 prior to arrival. Patient said that she took Percocet and some family members muscle relaxers prior to arrival. Patient was somnolent and given 0.4 intranasal Narcan with increase in mental status, but no increase in blood pressure. Patient denies chest pain, shortness of breath, fevers, dysuria, hematuria, numbness, tingling, rash or headaches. TRAVEL OUTSIDE OF THE [place] IN LAST 30 DAYS: No - Related Data Allergies/Adverse Reactions: No Known Allergies Allergy (Verified 11/03/16 20:44) Past Medical History - General Information source: Patient - Social History Smoking Status: Current Every Day Smoker Family History: Reviewed & Not Pertinent, Hypertension - Past Medical History Cardiac Medical History: Reports: Hx Hypercholesterolemia, Hx Hypertension Pulmonary Medical History: Reports: Hx Bronchitis, Hx COPD, Hx Pneumonia Denies: Hx Tuberculosis Renal/ Medical History: Denies: Hx Peritoneal Dialysis Musculoskeltal Medical History: Reports Hx Arthritis Psychiatric Medical History: Reports: Hx Depression Past Surgical History: Reports: Hx Cholecystectomy, Hx Hysterectomy, Hx Tubal Ligation. Denies: Hx Pacemaker - Immunizations Hx Diphtheria, Pertussis, Tetanus Vaccination: Yes Hx Pneumococcal Vaccination: 01/29/15 Review of Systems - Review of Systems Notes: REVIEW OF SYSTEMS: CONSTITUTIONAL: -fevers, -chills EENT: -eye pain, -difficulty swallowing, -nasal congestion CARDIOVASCULAR:-chest pain, -syncope. RESPIRATORY: +cough, -SOB GASTROINTESTINAL: +abdominal pain, -nausea, -vomiting, -diarrhea GENITOURINARY: -dysuria, -hematuria MUSCULOSKELETAL: +back pain, -neck pain SKIN: -rash or skin lesions. HEMATOLOGIC: -easy bruising or bleeding. LYMPHATIC: -swollen, enlarged glands. NEUROLOGICAL: -altered mental status or loss of consciousness, -headache, - neurologic symptoms PSYCHIATRIC: -anxiety, -depression. ALL OTHER SYSTEMS REVIEWED AND NEGATIVE. Physical Exam - Vital signs Vitals: Resp Pulse Ox 12 99 12/25/16 00:19 12/25/16 00:19 - Notes Notes: PHYSICAL EXAMINATION: GENERAL: Moaning HEAD: Atraumatic, normocephalic. EYES: Pupils equal round and reactive to light, extraocular movements intact, sclera anicteric, conjunctiva are normal. ENT: nares patent, oropharynx clear without exudates. Moist mucous membranes. NECK: Normal range of motion, supple without lymphadenopathy LUNGS: Breath sounds clear to auscultation bilaterally and equal. No wheezes rales or rhonchi. HEART: Regular rate and rhythm without murmurs ABDOMEN: Soft, LLQ tenderness, normoactive bowel sounds. No guarding, no rebound. No masses appreciated. EXTREMITIES: Normal range of motion, no pitting or edema. No cyanosis. NEUROLOGICAL: Cranial nerves grossly intact. Normal speech, normal gait. Normal sensory and motor exams. SKIN: Warm, Dry, normal turgor, no rashes or lesions noted. Course - Re-evaluation Re-evalutation: Patient seen immediately on arrival to the emergency room due to the hypotension and abdominal pain. Bedside ultrasound does not show any free fluid and aortic graft appears in place. Patient has SEB with doubling of her creatinine from 2.[address] abdomen and pelvis obtained without contrast due to the elevated creatinine and it showed evidence of mesenteric panniculitis. Will begin Abx and steroids. Still concerned about small sentinel leak from the AAA repair graft. 12/25/16 02:[address] Melgoza about CT A/P findings. She does not appear to have ischemic gut at this time with a normal lactate and white count. He evaluated patient and recommends transfer to [facility] for Vascular Surgery evaluation due to possibility of small leak from AAA graft and multiple surgeries/complications at [facility]. Spoke to [facility] Transfer Center at 02:30 and awaiting callback. 12/25/16 02:[address] Naranjo ([facility] Vascular Surgery) and he has accepted patient as ER to ER for further evaluation and treatment. Will try to arrange air transportation if available. Patient's MAP remaining above 65 with IVF and she does not require pressors at this time. 12/25/16 03:47 Air transport in ED. Pt's BP 85/54 (MAP 66). Pt is having intermittent periods of sleepiness. No narcotics were given to the patient, but is in the room with the door closed. Unsure if narcotics were given to the patient without our knowledge. Levophed hung for soft BP readings and to help with her BP during transport. Pt reassessed and stable for transport. - Vital Signs Vital signs: Temp Pulse Resp BP Pulse Ox 97.9 F 16 80/49 L 93 12/25/16 00:59 12/25/16 03:21 12/25/16 03:21 12/25/16 03:21 - Laboratory Result Diagrams: 12/25/16 00:27 12/25/16 00:27 Laboratory results interpreted by me: 12/25/16 12/25/16 12/25/16 00:27 00:27 00:42 Hgb 10.6 L Hct 32.1 L RDW 17.5 H VBG pH 7.20 L Sodium 133.7 L Carbon Dioxide 19 L BUN 40 H Creatinine 5.73 H Est GFR ( Amer) 9 L Est GFR (Non-Af Amer) 8 L Direct Bilirubin 0.5 H Creatine Kinase 283 H Urine Protein Urine Blood Ur Leukocyte Esterase 12/25/16 01:59 Hgb Hct RDW VBG pH Sodium Carbon Dioxide BUN Creatinine Est GFR ( Amer) Est GFR (Non-Af Amer) Direct Bilirubin Creatine Kinase Urine Protein 30 H Urine Blood SMALL H Ur Leukocyte Esterase TRACE H - Diagnostic Test Radiology reviewed: Image reviewed, Reports reviewed Radiology results interpreted by me: CT A/P: Mildly increased haziness at the mesenteric root, may be seen with mesenteric panniculitis. Status post endograft repair of the abdominal aortic aneurysm, incompletely evaluated on unenhanced CT. Left renal atrophy. Indeterminate left adrenal mass. - EKG Interpretation by Me EKG shows normal: Sinus rhythm, Robertson, Intervals, QRS Complexes, ST-T Waves Rate: Normal When compared to previous EKG there are: No significant change Critical Care Note - Critical Care Note Total time excluding time spent on procedures (mins): 35 Discharge - Discharge Clinical Impression: SEB (acute kidney injury) Hypotension Qualifiers: Hypotension type: unspecified hypotension type Qualified Code(s): I95.9 - Hypotension, unspecified Abdominal pain Qualifiers: Abdominal location: lower abdomen, unspecified Qualified Code(s): R10.30 - Lower abdominal pain, unspecified Back pain Qualifiers: Back pain location: back pain in unspecified location Chronicity: unspecified Back pain laterality: bilateral Qualified Code(s): M54.9 - Dorsalgia, unspecified Condition: Serious Disposition: Critical Access Hospital Referrals: DAVID ANGELO MD [Primary Care Provider] - Follow up as needed
[2016-12-25] MEDS ORDERED: NORMAL SALINE 1000 ML 1,000 ML IV ONE (01:44)
[2016-12-25] MEDS ORDERED: ONDANSETRON HCL INJ/PF 4 MG/2 ML SDV IV ONE (01:44)
--- NOTE | 2016-12-25 01:54 | RADIOLOGY REPORT (SQ) ---
EXAM DESCRIPTION: CT ABD/PELVIS NO ORAL OR IV COMPLETED DATE/TIME: 12/25/2016 1:28 am REASON FOR STUDY: hypotension, Hx AAA, abdominal/back pain . Diffuse abdominal pain, back pain. Pr ior cholecystectomy. COMPARISON: CT angiogram 10/17/2016. TECHNIQUE: CT scan of the abdomen and pelvis performed without intravenous or oral contrast. Images reviewed with lung, soft tissue, and bone windows. Reconstructed coronal and sagittal MPR images revi ewed. All images stored on PACS. All CT scanners at this facility use dose modulation, iterative reconstruction, and/or weight based d osing when appropriate to reduce radiation dose to as low as reasonably achievable (ALARA). [facility]: Dose Right [facility]: CareDose [facility]: Dose Right [facility]: Teradose 4D [facility]: [employer] RADIATION DOSE: Up-to-date CT equipment and radiation dose reduction techniques were employed. CTDIv ol: 11.9 mGy. DLP: 643 mGy-cm.mGy. LIMITATIONS: None. FINDINGS: LOWER CHEST: Mild atelectasis at the right lung base. No pleural effusion. NON-CONTRASTED LIVER, SPLEEN, ADRENALS: Evaluation limited by lack of IV contrast. Redemonstration o f indeterminate left adrenal mass measuring 4.1 x 4.3 x 4.9 cm. PANCREAS: No peripancreatic inflammatory changes. GALLBLADDER: Surgically absent. RIGHT KIDNEY AND URETER: Assessment for masses limited by lack of IV contrast. No significant calci fications. No hydronephrosis or hydroureter. LEFT KIDNEY AND URETER: Assessment for masses limited by lack of IV contrast. There is left renal at rophy. No significant calcifications. No hydronephrosis or hydroureter. AORTA AND RETROPERITONEUM: The patient is status post endograft repair of abdominal aortic aneurysm. The aneurysmal sac measures 5.5 x 5.5 cm, incompletely evaluated in the absence of intravenous contr ast. There are bilateral renal stents. 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 No dilated bowel loops. No free fluid or free air. There is mild increased haziness at the mesenteric root. APPENDIX: Normal. PELVIS, BLADDER, AND ABDOMINAL WALL:The urinary bladder is partially distended. No pelvic mass or fr ee fluid. BONES: Degenerative changes in the spine. IMPRESSION: Mildly increased haziness at the mesenteric root, may be seen with mesenteric panniculit is. Status post endograft repair of the abdominal aortic aneurysm, incompletely evaluated on unenhanced C T. Left renal atrophy. Indeterminate left adrenal mass. COMMENT: Quality ID # [id number]: Final reports with documentation of one or more dose reduction techniques (e.g., Automated exposure control, adjustment of the mA and/or kV according to patient size, use of iterative reconstruction technique) TECHNICAL DOCUMENTATION: JOB ID: [id number] [place]-[id number] 2010 [employer]- All Rights Reserved
--- NOTE | 2016-12-25 01:55 | RADIOLOGY REPORT (SQ) ---
EXAM DESCRIPTION: CHEST SINGLE VIEW COMPLETED DATE/TIME: 12/25/2016 1:44 am REASON FOR STUDY: hypotension, cough COMPARISON: Chest x-ray 11/03/2016. EXAM PARAMETERS: NUMBER OF VIEWS: One view. TECHNIQUE: Single frontal radiographic view of the chest acquired. RADIATION DOSE: NA LIMITATIONS: None. FINDINGS: LUNGS AND PLEURA: No consolidation, pneumothorax or pleural effusion. MEDIASTINUM AND HILAR STRUCTURES: No masses. Contour normal. HEART AND VASCULAR STRUCTURES: Heart normal in size. Normal vasculature. BONES: No acute findings. HARDWARE: None in the chest. IMPRESSION: No acute radiographic finding in the chest. TECHNICAL DOCUMENTATION: JOB ID: [id number]
[2016-12-25] MEDS ORDERED: METHYLPREDNISOLONE INJ 125 MG/2 ML SDV IV ONE (02:18)
[2016-12-25] MEDS ORDERED: PIPERACILLIN/TAZOBACTAM 3.375 GM VIAL IV ONE (02:18)
[2016-12-25 02:25] LABS: AMORPHOUS SEDIMENT,URINE 1+ /HPF; APPEARANCE,URINE CLOUDY; BILIRUBIN,URINE NEGATIVE (NEGATIVE); GLUCOSE, URINE NEGATIVE (NEGATIVE); KETONES,URINE NEGATIVE (NEGATIVE); LEUKOCYTE ESTERASE,URINE TRACE (NEGATIVE); NITRITE,URINE NEGATIVE (NEGATIVE); PROTEIN,URINE 30 mg/dL (NEGATIVE); URINE SPECIFIC GRAVITY 1.011; UROBILINOGEN,URINE NEGATIVE mg/dL (<2.0)
[2016-12-25 02:37] LABS: URINE BARBITURATES SCREEN NEGATIVE; URINE METHADONE SCREEN NEGATIVE; URINE PHENCYCLIDINE SCREEN NEGATIVE
[2016-12-25] MEDS ORDERED: FENTANYL CITRATE INJ/PF 100 MCG/2 ML AMPUL IV ONE (02:38)
[2016-12-25 02:44] LABS: URINE OPIATES LOW UNCONFIRMED POSITIVE
--- NOTE | 2016-12-25 02:49 | PDOC CONSULTATION ---
Consultation Consult Date: 12/25/16 Consult reason:: Abdominal pain with mesenteric panniculitis on CAT scan History of Present Illness Admission Date/PCP: DVAID ANGELO MD History of Present Illness: KAREN MALDONADO is a 56 year old female Complaining of abdominal pains and back pains for the past 2 weeks worse just prior to going to the emergency room. She claims she is on pain clinic management and took some Percocet prior to coming to the emergency room. 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 She also has endograft in the abdominal aorta that is not well evaluated by the CT scan without contrast. She denies any nausea vomiting nor constipation or diarrhea. She said she is hypertensive and takes blood pressure medic medications. She came to the emergency room with a blood pressure of 70 systolic and no response with Marcaine except for slight increase in mentation. She claims she had a history of "flat back. He has been going to the pain clinic for 5 years because of presumed lumbar disks. She had an endovascular aortic aneurysm repair for a 5.5 cm aneurysm 2014. She also has possible renal artery clot in the past. Past Medical History Cardiac Medical History: Reports: Hyperlipidema, Hypertension Pulmonary Medical History: Reports: Bronchitis, Chronic Obstructive Pulmonary Disease (COPD), Pneumonia Denies: Tuberculosis Musculoskeltal Medical History: Reports: Arthritis Psychiatric Medical History: Reports: Depression Past Surgical History Past Surgical History: Reports: Cholecystectomy, Hysterectomy, Tubal Ligation Denies: Pacemaker Social History Smoking Status: Current Every Day Smoker Frequency of Alcohol Use: None Hx Recreational Drug Use: No Drugs: Marijuana Hx Prescription Drug Abuse: Yes Family History Family History: Reviewed & Not Pertinent, Hypertension Parental Family History Reviewed: No Children Family History Reviewed: No Sibling(s) Family History Reviewed.: No Medication/Allergy Home Medications: Citalopram Hydrobromide [Celexa 20 mg Tablet] 20 mg PO DAILY 07/16/15 Zolpidem Tartrate 10 mg PO DAILY 07/16/15 Alprazolam [Xanax] 0.5 mg PO QHS #0 07/22/15 Amlodipine Besylate [Norvasc 5 mg Tablet] 5 mg PO DAILY #30 tablet 07/22/15 Fluticasone/Salmeterol [Advair 250-50 Diskus 14 Dose/Diskus] 1 inh IH Q12 #1 inhaler 07/22/15 Oxycodone HCl/Acetaminophen [Percocet 10-325 mg Tablet] 0.5 each PO TID #0 07/21 Warfarin Sodium 6 mg PO QHS #30 tablet 07/22/15 Allergies/Adverse Reactions: No Known Allergies Allergy (Verified 11/03/16 20:44) Review of Systems Review of Systems: Review of systems denies any chest pain shortness of breath diarrhea constipation nausea or vomiting. Denies dysuria. Denies fever or chills. GI complaining of lower abdominal pains and back pains. Rest of the systems negative. Physical Exam Vital Signs: Temp Pulse Resp BP Pulse Ox 97.9 F 10 L 78/53 L 96 12/25/16 00:59 12/25/16 01:41 12/25/16 01:42 12/25/16 01:42 General appearance: PRESENT: mild distress Head exam: PRESENT: atraumatic, normocephalic Eye exam: PRESENT: PERRLA Ear exam: PRESENT: normal external ear exam Mouth exam: PRESENT: moist, tongue midline Neck exam: PRESENT: other - No thyromegaly. Neck supple Respiratory exam: PRESENT: clear to auscultation abraham Cardiovascular exam: PRESENT: RRR Pulses: PRESENT: +1 pedal pulses bilateral Vascular exam: PRESENT: normal capillary refill GI/Abdominal exam: PRESENT: soft, tenderness - Tender in both lower quadrants but no rebound Rectal exam: PRESENT: deferred Extremities exam: PRESENT: full ROM Musculoskeletal exam: PRESENT: full ROM Neurological exam: PRESENT: alert, oriented to person, oriented to place, oriented to time, oriented to situation Psychiatric exam: PRESENT: agitated, anxious Focused psych exam: PRESENT: restlessness Skin exam: PRESENT: dry, normal color, warm Results Laboratory Results: 12/25/16 00:27 12/25/16 00:27 12/25/16 12/25/16 12/25/16 00:27 00:27 00:42 WBC 10.2 RBC 3.76 Hgb 10.6 L Hct 32.1 L MCV 85 MCH 28.2 MCHC 33.1 RDW 17.5 H Plt Count 221 Seg Neutrophils % 49.0 Lymphocytes % 41.0 Monocytes % 4.9 Eosinophils % 3.8 Basophils % 1.3 Absolute Neutrophils 5.0 Absolute Lymphocytes 4.2 Absolute Monocytes 0.5 Absolute Eosinophils 0.4 Absolute Basophils 0.1 VBG pH VBG pCO2 VBG HCO3 VBG Base Excess Sodium 133.7 L Potassium 4.8 Chloride 99 Carbon Dioxide 19 L Anion Gap 16 BUN 40 H Creatinine 5.73 H Est GFR ( Amer) 9 L Est GFR (Non-Af Amer) 8 L Glucose 95 Lactic Acid 1.1 Calcium 8.9 Total Bilirubin 0.7 AST 21 ALT 21 Alkaline Phosphatase 119 Total Protein 7.4 Albumin 4.2 Lipase 101.5 Urine Color Urine Appearance Urine pH Ur Specific [place] Urine Protein Urine Glucose (UA) Urine Ketones Urine Blood Urine Nitrite Ur Leukocyte Esterase Urine WBC (Auto) Urine RBC (Auto) 12/25/16 12/25/16 00:42 01:59 WBC RBC Hgb Hct MCV MCH MCHC RDW Plt Count Seg Neutrophils % Lymphocytes % Monocytes % Eosinophils % Basophils % Absolute Neutrophils Absolute Lymphocytes Absolute Monocytes Absolute Eosinophils Absolute Basophils VBG pH 7.20 L VBG pCO2 61.3 VBG HCO3 23.5 VBG Base Excess -4.9 Sodium Potassium Chloride Carbon Dioxide Anion Gap BUN Creatinine Est GFR ( Amer) Est GFR (Non-Af Amer) Glucose Lactic Acid Calcium Total Bilirubin AST ALT Alkaline Phosphatase Total Protein Albumin Lipase Urine Color YELLOW Urine Appearance CLOUDY Urine pH 5.0 Ur Specific [place] 1.011 Urine Protein 30 H Urine Glucose (UA) NEGATIVE Urine Ketones NEGATIVE Urine Blood SMALL H Urine Nitrite NEGATIVE Ur Leukocyte Esterase TRACE H Urine WBC (Auto) 1 Urine RBC (Auto) 1 12/25/16 12/25/16 00:27 00:27 Creatine Kinase 283 H Troponin I < 0.012 Impressions: Chest X-Ray 12/25/16 00:25 IMPRESSION: No acute radiographic finding in the chest. Abdomen/Pelvis CT 12/25/16 00:31 IMPRESSION: Mildly increased haziness at the mesenteric root, may be seen with mesenteric panniculitis. Status post endograft repair of the abdominal aortic aneurysm, incompletely evaluated on unenhanced CT. Left renal atrophy. Indeterminate left adrenal mass. Assessment & Plan - Diagnosis (1) Anxiety Is this a current diagnosis for this admission?: Yes (2) COPD (chronic obstructive pulmonary disease) Is this a current diagnosis for this admission?: Yes (3) Hypotension Is this a current diagnosis for this admission?: Yes (4) S/P AAA (abdominal aortic aneurysm) repair Is this a current diagnosis for this admission?: Yes Plan: Not very well evaluated with the CAT scan without contrast though ultrasound did not see any abnormality - Time Time Spent: 30 to 50 Minutes - Plan Summary Plan Summary: Patient had hypotension with no definite identifiable reason. Patient's post abdominal aortic aneurysm repair that does not look like obvious bleeding. Has multiple abdominal operations including cholecystectomy and hysterectomy with incomplete malrotation with the cecum in the right upper quadrant and now with reading of mesenteric panniculitis, has chronic back pains, and renal failure management of this patient is white complicated. At this point I do not think she needs a emergency surgery but she will probably be better in the facility where they have all the support system like advised that were her aneurysm was repaired.
[2016-12-25 03:30] VITALS: BP 80/49
[2016-12-25] MEDS ORDERED: NALOXONE HCL INJ/PF 0.4 MG/1 ML SDV IV ONE (03:43)
[2016-12-25] MEDS ORDERED: DEXTROSE 5%-WATER 250 ML with NOREPINEPHRINE BITARTRATE 4 MG IV PRN ×2 (03:52)
[2016-12-25] MEDS ORDERED: NOREPINEPHRINE BITARTRATE INJ/PF 4 MG/4 ML SDV IV ONE ×2 (03:56→03:59)
--- NOTE | 2016-12-25 13:02 | EKG REPORT ---
SEVERITY:- ABNORMAL ECG - SINUS RHYTHM : Confirmed by: Mayte Aguirre 25-Dec-2016 13:01:35
== END 2016-12-25 04:10 | disposition short-term general hospital (02) ==
LOC: ER 00:13
DX: N17.9 Acute kidney failure, unspecified (principal); I95.9 Hypotension, unspecified; R10.30 Lower abdominal pain, unspecified; M54.9 Dorsalgia, unspecified; E78.00 Pure hypercholesterolemia, unspecified; I12.9 Hypertensive chronic kidney disease with stage 1 through stage 4 chronic kidney disease, or unspecified chronic kidney disease; N18.9 Chronic kidney disease, unspecified; Z90.49 Acquired absence of other specified parts of digestive tract; Z90.710 Acquired absence of both cervix and uterus
CPT/HCPCS: 93005; 99291; 96361; 96375; 96365; 36415; 87086; 80307 ×2; 82550; 83690; 85025; 85610; 85730; 80053; 81001; 84484; 82803; 83605; 71010; 74176; 93010; J3490; J2930; J2310; J2405; J7030; J2543

== ENCOUNTER → 2017-06-29 | Outpatient (CLI) | payer MEDICAID ==
--- NOTE | 2017-06-29 17:43 | WOMENS IMAGING REPORT ---
EXAM DESCRIPTION: BILAT SCREENING MAMMO W/CAD COMPLETED DATE/TIME: 06/29/2017 9:13 am REASON FOR STUDY: ROUTINE SCREENING;Z12.31 Z12.31 ENCNTR SCREEN MAMMOGRAM FOR MALIGNANT NEOPLASM OF NELLY COMPARISON: 2010 TECHNIQUE: Standard craniocaudal and mediolateral oblique views of each breast recorded using digita l acquisition. LIMITATIONS: None. FINDINGS: No masses, calcifications or architectural distortion. No areas of suspicion. Read with the assistance of CAD. .[facility] - R2 Cenova Version 1.3 .[facility] - R2 Cenova Version 1.3 .[facility] - R2 Cenova Version 2.4 .[facility] - R2 Cenova Version 2.4 .[facility] - R2 Rotating Equipment Engineer Version 9.2 IMPRESSION: NORMAL MAMMOGRAM. BIRADS 1. BREAST DENSITY: b. There are scattered areas of fibroglandular density. BIRAD: 1 NEGATIVE RECOMMENDATION: ROUTINE SCREENING COMMENT: The patient has been notified of the results by letter per SA requirements. Additional no tification policies are in place for contacting patient with suspicious or incomplete findings. Quality ID #[id number]: The [employer] recommends an annual screening mammogram for women aged 40 years or over. This facility utilizes a reminder system to ensure that all patients receive reminder letters, and/or direct phone calls for appointments. This includes reminders for routine scr eening mammograms, diagnostic mammograms, or other Breast Imaging Interventions when appropriate. Th is patient will be placed in the appropriate reminder system. The [employer] (ACR) has developed recommendations for screening MRI of the breast s in certain patient populations, to be used in conjunction with mammography. Breast MRI surveillanc e may be appropriate for women with more than 20% lifetime risk of developing breast cancer as deter mined by genetic testing, significant family history of the disease, or history of mantle radiation f or Hodgkins Disease. ACR Practice Guidelines 2008. TECHNICAL DOCUMENTATION: FINDING NUMBER: (1) ASSESSMENT: (1) JOB ID: [id number] [employer]- All Rights Reserved Reading location - IP/workstation name: [email or web address]
== END ==
LOC: WI 08:38
PROVIDERS: ATTEND Family Medicine
DX: Z12.31 Encounter for screening mammogram for malignant neoplasm of breast (principal)
CPT/HCPCS: 77067

== ENCOUNTER 2017-07-05 16:12 | Inpatient (IN) | payer MEDICAID ==
--- NOTE | 2017-07-05 17:06 | ER Document Report ---
ED General - General TRAVEL OUTSIDE OF THE [place] IN LAST 30 DAYS: No <LETA MCNAIR - Last Filed: 07/05/17 20:10> <COMPA MULLEN - Last Filed: 07/05/17 23:40> - General Chief Complaint: Altered Mental Status Stated Complaint: ALTERED MENTAL STATUS Time Seen by Provider: 07/05/17 16:41 Notes: Patient was brought in today by EMS after the family called because they have been trying to get her awake and to get her up all day, with no success. They say that she has been "talking out of her head" and not making any sense. EMS was called to the scene and found her blood pressure was low (74/54). And started IV fluids. They also found her O2 sat level was low (72%). EMS started normal saline and almost 1 L and infused by the time she arrived in the emergency department. Daughter at the bedside says the patient actually started acting confused and sleepy last evening and they were concerned that she may have taken too much of her medication. She takes 1 mg Xanax, usually 2 at bedtime, and gabapentin 2 at bedtime as well. She has had a cough productive of a lot of sputum. Not aware of any fever. Has a history of COPD. (LETA MCNAIR) - Related Data Allergies/Adverse Reactions: No Known Allergies Allergy (Verified 07/05/17 17:02) Past Medical History - Social History Smoking Status: Current Every Day Smoker Family History: Reviewed & Not Pertinent, Hypertension - Past Medical History Cardiac Medical History: Reports: Hx Hypercholesterolemia, Hx Hypertension Pulmonary Medical History: Reports: Hx Bronchitis, Hx COPD, Hx Pneumonia Musculoskeltal Medical History: Reports Hx Arthritis Psychiatric Medical History: Reports: Hx Depression Past Surgical History: Reports: Hx Cholecystectomy, Hx Hysterectomy, Hx Tubal Ligation - Immunizations Hx Diphtheria, Pertussis, Tetanus Vaccination: Yes Hx Pneumococcal Vaccination: 01/29/15 <LETA MCNAIR - Last Filed: 07/05/17 20:10> Review of Systems <LETA MCNAIR - Last Filed: 07/05/17 20:10> <COMPA MULLEN - Last Filed: 07/05/17 23:40> - Review of Systems Notes: REVIEW OF SYSTEMS: CONSTITUTIONAL : Denies fever. EENT: Denies eye, ear, nose or mouth or throat pain or other symptoms. CARDIOVASCULAR: Denies chest pain. RESPIRATORY: Has had a very productive cough. GASTROINTESTINAL: Denies abdominal pain or nausea, vomiting, or diarrhea. GENITOURINARY: Denies difficulty or painful urinating, urinary frequency, blood in urine. MUSCULOSKELETAL: Denies back or neck pain. Denies joint pain or swelling. SKIN: Denies rash or skin lesions. NEUROLOGICAL: Denies LOC but has altered mental status, according to the family. Denies headache. Denies sensory loss or motor deficits. ALL OTHER SYSTEMS REVIEWED AND NEGATIVE. (LETA MCNAIR) Physical Exam - Vital signs Interpretation: Normal <LETA MCNAIR - Last Filed: 07/05/17 20:10> <COMPA MULLEN - Last Filed: 07/05/17 23:40> - Vital signs Vitals: Temp Resp Pulse Ox 98.5 F 16 88 L 07/05/17 16:25 07/05/17 16:25 07/05/17 16:25 - Notes Notes: PHYSICAL EXAMINATION: GENERAL: Well-appearing, in no acute distress. Sleepy, but does awaken to firm tactile stimulation, shaking, or loud voice HEAD: Atraumatic, normocephalic. EYES: Pupils equal round and reactive to light, extraocular movements intact. ENT: oropharynx clear without exudates. Moist mucous membranes. NECK: Normal range of motion, supple. No carotid bruits heard. LUNGS: Breath sounds clear and equal bilaterally. Distant breath sounds bilaterally. Scattered wheezes as well, but no impairment of breathing. HEART: Regular rate and rhythm without murmurs. ABDOMEN: Soft, nontender. No guarding or rebound. No masses. BACK: No tenderness throughout entire back. EXTREMITIES: Normal range of motion without pain. NEUROLOGICAL: Normal speech, gait not tested because of patient's somnolence. Normal sensory, motor, and reflex exams. Awake, alert, and oriented x3. Cranial nerves normal. PSYCH: Normal mood, normal affect. SKIN: Warm, dry, no rashes. (LETA MCNAIR) Course - Laboratory Result Diagrams: 07/05/17 18:30 07/05/17 18:30 - Diagnostic Test Radiology reviewed: Image reviewed, Reports reviewed - CT of the brain negative. <LETA MCNAIR - Last Filed: 07/05/17 20:10> - Laboratory Result Diagrams: 07/05/17 18:30 07/05/17 18:30 <COMPA MULLEN - Last Filed: 07/05/17 23:40> - Re-evaluation Re-evalutation: 07/05/17 20:08 Lab studies show renal insufficiency, somewhat worse than previous studies. Patient came back with a troponin of 0.177, most likely secondary to her renal insufficiency with creatinine in the threes. CT scan of the brain negative. Chest x-ray normal. Other labs show normal CBC and urine and no evidence of infection. Presented the patient to Dr. Almanza, hospitalist on-call, for admission, but he wishes to have a repeat troponin to see if it is going up and value. Patient has no cardiac symptoms, no chest pains, etc. EKG is normal except for some nonspecific ST changes. Patient is being left with Dr. Raymundo who will check on a repeat troponin and then contact Dr. Almanza. (LETA MCNAIR) 07/05/17 22:09 Repeat troponin with only mild elevation, discussed with patient and family member at bedside who would prefer patient be admitted here, discussed with hospitalist who agrees to admit for further evaluation and treatment (COMPA MULLEN) - Vital Signs Vital signs: Temp Pulse Resp BP Pulse Ox 98.5 F 12 109/72 96 07/05/17 16:25 07/05/17 22:31 07/05/17 22:31 07/05/17 22:31 - Laboratory Laboratory results interpreted by me: 07/05/17 07/05/17 07/05/17 17:05 17:45 18:30 Hgb 11.4 L Hct 35.0 L RDW 16.8 H Carbonic Acid 2.06 H ABG pH 7.21 L ABG pCO2 68.5 H ABG HCO3 26.8 H ABG Total CO2 28.9 H ABG O2 Saturation 93.4 L Sodium Carbon Dioxide BUN Creatinine Est GFR ( Amer) Est GFR (Non-Af Amer) Calcium AST Alkaline Phosphatase Urine Protein 30 H Urine Urobilinogen 2.0 H 07/05/17 18:30 Hgb Hct RDW Carbonic Acid ABG pH ABG pCO2 ABG HCO3 ABG Total CO2 ABG O2 Saturation Sodium 131.9 L Carbon Dioxide 21 L BUN 41 H Creatinine 3.31 H Est GFR ( Amer) 17 L Est GFR (Non-Af Amer) 14 L Calcium 7.8 L AST 13 L Alkaline Phosphatase 136 H Urine Protein Urine Urobilinogen - Diagnostic Test Radiology results interpreted by me: 07/05/17 20:11 Chest x-ray is essentially normal. (LETA MCNAIR) Critical Care Note - Critical Care Note Total time excluding time spent on procedures (mins): 45 <LETA MCNAIR - Last Filed: 07/05/17 20:10> Discharge <LTEA MCNAIR - Last Filed: 07/05/17 20:10> - Discharge Admitting Provider: Hospitalist Unit Admitted: [facility] <COMPA MULLEN - Last Filed: 07/05/17 23:40> - Discharge Clinical Impression: Mental status change, Hypercarbia, COPD (chronic obstructive pulmonary disease) Condition: Stable Disposition: ADMITTED INPATIENT
--- NOTE | 2017-07-05 17:19 | RADIOLOGY REPORT (SQ) ---
EXAM DESCRIPTION: CHEST SINGLE VIEW portable COMPLETED DATE/TIME: 07/05/2017 5:07 pm REASON FOR STUDY: Low O2 sat, confusion COMPARISON: Chest x-ray 12/25/2016 and CTA chest 10/17/2016 EXAM PARAMETERS: NUMBER OF VIEWS: One view. TECHNIQUE: Single frontal radiographic view of the chest acquired. Portable RADIATION DOSE: NA LIMITATIONS: None. FINDINGS: LUNGS AND PLEURA: No opacities, masses or pneumothorax. Minor blunting right costophrenic angle concerning for trace pleural fluid. MEDIASTINUM AND HILAR STRUCTURES: No masses. Contour normal. HEART AND VASCULAR STRUCTURES: Heart normal in size. Normal vasculature. BONES: No acute findings. HARDWARE: None in the chest. OTHER: No other significant finding. IMPRESSION: Chest is unremarkable except for minor blunting right costophrenic angle concerning for trace pleural fluid. TECHNICAL DOCUMENTATION: JOB ID: [id number] [employer]- All Rights Reserved Reading location - IP/workstation name: [email or web address]
[2017-07-05 17:27] LABS: ARTERIAL BLOOD BASE EXCESS -2.2 mmol/L; ARTERIAL BLOOD H2CO3 2.06 mmol/L (1.05-1.35); ARTERIAL BLOOD HCO3 26.8 mmol/L (20-26); ARTERIAL BLOOD O2 SATURATION 93.4 % (94-98); ARTERIAL BLOOD PCO2 68.5 mmHg (35-45); ARTERIAL BLOOD PH 7.21 (7.35-7.45); ARTERIAL BLOOD PO2 82.3 mmHg (80-100); ARTERIAL BLOOD TOTAL CO2 28.9 mmol/L (21-25)
[2017-07-05 17:28] LABS: ARTERIAL BLOOD FIO2 35%
[2017-07-05] MEDS ORDERED: NORMAL SALINE 1000 ML 1,000 ML IV ONE (18:31)
[2017-07-05 18:42] LABS: ABSOLUTE BASOPHILS # (AUTO) 0.1 10^3/uL (0.0-0.2); ABSOLUTE EOSINOPHILS # (AUTO) 0.1 10^3/uL (0.0-0.6); ABSOLUTE LYMPHOCYTES (AUTO) 3.9 10^3/uL (0.5-4.7); ABSOLUTE MONOCYTES (AUTO) 0.4 10^3/uL (0.1-1.4); ABSOLUTE NEUT (AUTO) 4.3 10^3/uL (1.7-8.2); BASOPHILS % (AUTO) 1.5 % (0-2); EOSINOPHILS % (AUTO) 0.9 % (0-6); HEMOGLOBIN 11.4 g/dL (12.0-15.5); LYMPHOCYTES % (AUTO) 44.2 % (13-45); MEAN CORPUSCULAR HEMOGLOBIN 27.5 pg (27.0-33.4); MEAN CORPUSCULAR HGB CONC 32.5 g/dL (32.0-36.0); MEAN CORPUSCULAR VOLUME 85 fl (80-97); MONOCYTES % (AUTO) 4.2 % (3-13); PLATELET COUNT 245 10^3/uL (150-450); RED BLOOD COUNT 4.12 10^6/uL (3.72-5.28); RED CELL DISTRIBUTION WIDTH 16.8 % (11.5-14.0); SEGMENTED NEUTROPHILS % (AUTO) 49.2 % (42-78); TOTAL CELLS COUNTED % (AUTO) 100 %; WHITE BLOOD COUNT 8.8 10^3/uL (4.0-10.5)
[2017-07-05 18:45] LABS: APPEARANCE,URINE CLEAR; BILIRUBIN,URINE NEGATIVE (NEGATIVE); COLOR,URINE YELLOW; GLUCOSE, URINE NEGATIVE (NEGATIVE); KETONES,URINE NEGATIVE (NEGATIVE); LEUKOCYTE ESTERASE,URINE NEGATIVE (NEGATIVE); NITRITE,URINE NEGATIVE (NEGATIVE); PROTEIN,URINE 30 mg/dL (NEGATIVE); URINE SPECIFIC GRAVITY 1.014
--- NOTE | 2017-07-05 19:01 | RADIOLOGY REPORT (SQ) ---
EXAM DESCRIPTION: CT HEAD WITHOUT COMPLETED DATE/TIME: 07/05/2017 6:50 pm REASON FOR STUDY: Altered mental status, smoker, hypercarbia COMPARISON: 11/03/2016 TECHNIQUE: Axial images acquired through the brain without intravenous contrast. Images reviewed wi th bone, brain and subdural windows. Images stored on PACS. All CT scanners at this facility use dose modulation, iterative reconstruction, and/or weight based d osing when appropriate to reduce radiation dose to as low as reasonably achievable (ALARA). [facility]: Dose Right [facility]: CareDose [facility]: Dose Right [facility]: Teradose 4D [facility]: Smart [employer] RADIATION DOSE: CT Rad equipment meets quality standard of care and radiation dose reduction techniq ues were employed. CTDIvol: 53.2 mGy. DLP: 937 mGy-cm. mGy. LIMITATIONS: None. FINDINGS: VENTRICLES: Normal size and contour. CEREBRUM: No masses. No hemorrhage. No midline shift. No evidence for acute infarction. Normal gra y/white matter differentiation. No areas of low density in the white matter. CEREBELLUM: No masses. No hemorrhage. No alteration of density. No evidence for acute infarction. EXTRAAXIAL SPACES: No fluid collections. No masses. ORBITS AND GLOBE: No intra- or extraconal masses. Normal contour of globe without masses. CALVARIUM: No fracture. PARANASAL SINUSES: No fluid or mucosal thickening. SOFT TISSUES: No mass or hematoma. OTHER: No other significant finding. IMPRESSION: NORMAL BRAIN CT WITHOUT CONTRAST. EVIDENCE OF ACUTE STROKE: NO. COMMENT: Quality ID # [id number]: Final reports with documentation of one or more dose reduction techniques (e.g., Automated exposure control, adjustment of the mA and/or kV according to patient size, use of iterative reconstruction technique) TECHNICAL DOCUMENTATION: JOB ID: [id number] [employer]- All Rights Reserved Reading location - IP/workstation name: [email or web address]
[2017-07-05 19:04] LABS: ALANINE AMINOTRANSFERASE 20 U/L (9-52); ALBUMIN 3.6 g/dL (3.5-5.0); ALKALINE PHOSPHATASE 136 U/L (38-126); ANION GAP 12 (5-19); ASPARTATE AMINO TRANSFERASE 13 U/L (14-36); BILIRUBIN,DIRECT 0.4 mg/dL (0.0-0.4); BILIRUBIN,TOTAL 0.4 mg/dL (0.2-1.3); BLOOD UREA NITROGEN 41 mg/dL (7-20); CALCIUM 7.8 mg/dL (8.4-10.2); CARBON DIOXIDE 21 mmol/L (22-30); CHLORIDE 99 mmol/L (98-107); GLUCOSE 92 mg/dL (75-110); POTASSIUM 4.9 mmol/L (3.6-5.0); SODIUM 131.9 mmol/L (137-145)
[2017-07-05 19:05] LABS: URINE AMPHETAMINES SCREEN UNCONFIRMED POSITIVE; URINE BARBITURATES SCREEN NEGATIVE; URINE BENZODIAZEPINES SCREEN UNCONFIRMED POSITIVE; URINE COCAINE SCREEN NEGATIVE; URINE MARIJUANA (THC) SCREEN NEGATIVE; URINE METHADONE SCREEN NEGATIVE; URINE PHENCYCLIDINE SCREEN NEGATIVE
[2017-07-05 19:12] LABS: CREATINE KINASE MB 1.47 ng/mL (<4.55)
[2017-07-05 19:15] LABS: TROPONIN I 0.177 ng/mL
--- NOTE | 2017-07-05 22:50 | EKG REPORT ---
SEVERITY:- BORDERLINE ECG - SINUS RHYTHM BORDERLINE T WAVE ABNORMALITIES : Confirmed by: Cory Samson MD 05-Jul-2017 22:49:49
--- NOTE | 2017-07-05 22:50 | EKG REPORT ---
SEVERITY:- BORDERLINE ECG - SINUS TACHYCARDIA BORDERLINE T WAVE ABNORMALITIES : Confirmed by: Cory Samson MD 05-Jul-2017 22:50:01
[2017-07-05] MEDS ORDERED: IPRATROPIUM/ALBUTEROL 0.5-2.5 MG/3 ML AMPUL NEB PRN (22:51)
[2017-07-05] MEDS ORDERED: MAG HYDROX/AL HYDROX/SIMETH SUSP 30 ML UDCUP PO PRN (22:51)
[2017-07-05] MEDS ORDERED: ACETAMINOPHEN 325 MG TABLET PO PRN (22:51)
[2017-07-05] MEDS ORDERED: ASPIRIN 81 MG TABLET, CHEWABLE PO ONE (22:56)
[2017-07-05] MEDS ORDERED: NORMAL SALINE 1000 ML 1,000 ML IV SCH (23:00)
[2017-07-06] MEDS: ALBUTEROL SULFATE 0.083% NEB 2.5 MG/3 ML AMPUL NEB SCH ×3 (01:22→13:31)
[2017-07-06 01:30] LABS: ARTERIAL BLOOD BASE EXCESS -2.2 mmol/L; ARTERIAL BLOOD H2CO3 1.66 mmol/L (1.05-1.35); ARTERIAL BLOOD HCO3 25.2 mmol/L (20-26); ARTERIAL BLOOD PCO2 55.3 mmHg (35-45); ARTERIAL BLOOD PH 7.28 (7.35-7.45); ARTERIAL BLOOD PO2 59.4 mmHg (80-100); ARTERIAL BLOOD TOTAL CO2 26.9 mmol/L (21-25)
[2017-07-06 01:31] LABS: ARTERIAL BLOOD FIO2 4
[2017-07-06 03:16] LABS: ABSOLUTE BASOPHILS # (AUTO) 0.1 10^3/uL (0.0-0.2); ABSOLUTE EOSINOPHILS # (AUTO) 0.1 10^3/uL (0.0-0.6); ABSOLUTE LYMPHOCYTES (AUTO) 2.8 10^3/uL (0.5-4.7); ABSOLUTE MONOCYTES (AUTO) 0.4 10^3/uL (0.1-1.4); ABSOLUTE NEUT (AUTO) 4.3 10^3/uL (1.7-8.2); EOSINOPHILS % (AUTO) 0.9 % (0-6); HEMATOCRIT 33.9 % (36.0-47.0); LYMPHOCYTES % (AUTO) 36.4 % (13-45); MEAN CORPUSCULAR HEMOGLOBIN 27.2 pg (27.0-33.4); MEAN CORPUSCULAR HGB CONC 32.4 g/dL (32.0-36.0); MEAN CORPUSCULAR VOLUME 84 fl (80-97); MONOCYTES % (AUTO) 5.5 % (3-13); PLATELET COUNT 223 10^3/uL (150-450); RED BLOOD COUNT 4.04 10^6/uL (3.72-5.28); RED CELL DISTRIBUTION WIDTH 15.9 % (11.5-14.0); SEGMENTED NEUTROPHILS % (AUTO) 56.2 % (42-78); TOTAL CELLS COUNTED % (AUTO) 100 %; WHITE BLOOD COUNT 7.6 10^3/uL (4.0-10.5)
[2017-07-06 03:37] LABS: ANION GAP 10 (5-19); BLOOD UREA NITROGEN 37 mg/dL (7-20); CALCIUM 8.4 mg/dL (8.4-10.2); CARBON DIOXIDE 23 mmol/L (22-30); CHLORIDE 104 mmol/L (98-107); CREATINE KINASE 87 U/L (30-135); GLUCOSE 91 mg/dL (75-110); POTASSIUM 4.9 mmol/L (3.6-5.0); SODIUM 137.3 mmol/L (137-145)
[2017-07-06 03:50] LABS: CREATINE KINASE MB 1.22 ng/mL (<4.55)
[2017-07-06 03:58] LABS: TROPONIN I 0.171 ng/mL
[2017-07-06] MEDS ORDERED: NALOXONE HCL INJ/PF 0.4 MG/1 ML SDV IV PRN (04:54)
--- NOTE | 2017-07-06 05:06 | PDOC H&P ---
History of Present Illness Admission Date/PCP: 07/05/17 22:20 DAVID ANGELO MD Patient complains of: Altered mental status History of Present Illness: KAREN MALDONADO is a 56 year old female with a past medical history of COPD with persistent tobacco abuse, obstructive sleep apnea, polypharmacy versus polysubstance abuse. Stage III chronic kidney disease. Patient is accompanied by her daughter who is able to provide history and presents after 24 hours of confusion and difficulty staying awake. No new medications, no fever, EMS discovered her with hypotension of 74/54, starting IV fluids. Oxygen saturations were 72% and started on nonrebreather. In the emergency room she has had found to have hypercapnic respiratory failure with PCO2 68 and started on BiPAP, troponin I elevated at 0.17 without acute EKG changes. Her urine drug screen reveals benzodiazepines, opiates and amphetamines. She has history of similar presentation and is referred to the hospitalist for admission. Past Medical History Cardiac Medical History: Reports: Hyperlipidema, Hypertension Pulmonary Medical History: Reports: Bronchitis, Chronic Obstructive Pulmonary Disease (COPD), Pneumonia Musculoskeltal Medical History: Reports: Arthritis Psychiatric Medical History: Reports: Depression, General Anxiety Disorder, Substance Abuse, Tobacco Dependency Past Surgical History Past Surgical History: Reports: Cholecystectomy, Hysterectomy, Tubal Ligation Social History Information Source: Relative Lives with: Family Smoking Status: Current Every Day Smoker Cigarettes Packs Per Day: 1.5 Number of Years Smokin Last Time Smoked: 07/04/17 Frequency of Alcohol Use: None Hx Recreational Drug Use: No Drugs: Marijuana Hx Prescription Drug Abuse: No - Advance Directive Resuscitation Status: Full Code Family History Family History: Reviewed & Not Pertinent, Hypertension Parental Family History Reviewed: Yes Children Family History Reviewed: Yes Sibling(s) Family History Reviewed.: Yes Medication/Allergy Home Medications: Citalopram Hydrobromide [Celexa 20 mg Tablet] 20 mg PO DAILY 07/16/15 Zolpidem Tartrate 10 mg PO DAILY 07/16/15 Alprazolam [Xanax] 0.5 mg PO QHS #0 07/22/15 Amlodipine Besylate [Norvasc 5 mg Tablet] 5 mg PO DAILY #30 tablet 07/22/15 Fluticasone/Salmeterol [Advair 250-50 Diskus 14 Dose/Diskus] 1 inh IH Q12 #1 inhaler 07/22/15 Oxycodone HCl/Acetaminophen [Percocet 10-325 mg Tablet] 0.5 each PO TID #0 07/21 Warfarin Sodium 6 mg PO QHS #30 tablet 07/22/15 Allergies/Adverse Reactions: No Known Allergies Allergy (Verified 07/05/17 17:02) Review of Systems ROS unobtainable: Due to mental status - Obtunded Physical Exam Vital Signs: Temp Pulse Resp BP Pulse Ox 98.2 F 94 13 121/64 98 07/06/17 00:15 07/06/17 02:00 07/06/17 03:57 07/06/17 00:15 07/06/17 03:57 General appearance: PRESENT: disheveled, severe distress, thin. ABSENT: no acute distress, cooperative Head exam: PRESENT: atraumatic, normocephalic Eye exam: PRESENT: conjunctiva pink, EOMI, PERRLA. ABSENT: scleral icterus Ear exam: PRESENT: normal external ear exam Mouth exam: PRESENT: dry mucosa, neck supple, tongue midline Neck exam: ABSENT: carotid bruit, JVD, lymphadenopathy, thyromegaly Respiratory exam: PRESENT: crackles, decreased breath sounds, prolonged expiratory phas, symmetrical. ABSENT: rhonchi, tachypnea Cardiovascular exam: PRESENT: RRR. ABSENT: diastolic murmur, rubs, systolic murmur Pulses: PRESENT: normal dorsalis pedis pul Vascular exam: PRESENT: normal capillary refill GI/Abdominal exam: PRESENT: normal bowel sounds, soft. ABSENT: distended, guarding, mass, organolmegaly, rebound, tenderness Rectal exam: PRESENT: deferred Extremities exam: PRESENT: full ROM. ABSENT: calf tenderness, clubbing, pedal edema Neurological exam: PRESENT: altered, CN II-XII grossly intact. ABSENT: alert, awake, oriented to person, oriented to place Psychiatric exam: PRESENT: unusual affect Skin exam: PRESENT: dry, intact, warm. ABSENT: cyanosis, rash Results Laboratory Results: 07/06/17 03:03 07/06/17 03:03 07/06/17 07/06/17 07/06/17 01:20 03:03 03:03 WBC 7.6 RBC 4.04 Hgb 11.0 L Hct 33.9 L MCV 84 MCH 27.2 MCHC 32.4 RDW 15.9 H Plt Count 223 Seg Neutrophils % 56.2 Lymphocytes % 36.4 Monocytes % 5.5 Eosinophils % 0.9 Basophils % 1.0 Absolute Neutrophils 4.3 Absolute Lymphocytes 2.8 Absolute Monocytes 0.4 Absolute Eosinophils 0.1 Absolute Basophils 0.1 Carbonic Acid 1.66 H HCO3/H2CO3 Ratio 15:1 ABG pH 7.28 L ABG pCO2 55.3 H ABG pO2 59.4 L ABG HCO3 25.2 ABG O2 Saturation 87.0 L ABG Base Excess -2.2 FiO2 4 Sodium 137.3 Potassium 4.9 Chloride 104 Carbon Dioxide 23 Anion Gap 10 BUN 37 H Creatinine 2.38 H Est GFR ( Amer) 25 L Est GFR (Non-Af Amer) 21 L Glucose 91 Calcium 8.4 07/06/17 07/06/17 03:03 03:03 Creatine Kinase 87 CK-MB (CK-2) 1.22 Troponin I 0.171 Impressions: Chest X-Ray 07/05/17 16:52 IMPRESSION: Chest is unremarkable except for minor blunting right costophrenic angle concerning for trace pleural fluid. Head CT 07/05/17 17:50 IMPRESSION: NORMAL BRAIN CT WITHOUT CONTRAST. EVIDENCE OF ACUTE STROKE: NO. Assessment & Plan - Diagnosis (1) COPD (chronic obstructive pulmonary disease) Is this a current diagnosis for this admission?: Yes Plan: With hypercapnia complicated by polypharmacy versus polysubstance abuse. Narcan as needed, albuterol and Atrovent, BiPAP support (2) Polysubstance abuse Is this a current diagnosis for this admission?: Yes Plan: Narcan as needed, mental health consultation for benzodiazepine, opiate, amphetamine and marijuana. (3) Acute on chronic renal failure Is this a current diagnosis for this admission?: Yes Plan: Hopefully largely prerenal complicated by hypovolemia and hypotension. IV fluid challenge, reevaluate chemistry avoid nephrotoxic meds and doses. (4) Elevated troponin Is this a current diagnosis for this admission?: Yes Plan: Without EKG changes. Serial cardiac enzymes. Consider cardiology consult. - Time Time Spent: 50 to 70 Minutes - Inpatient Certification Medical Necessity: Need Close Monitoring Due to Risk of Patient Decompensation
[2017-07-06] MEDS ORDERED: HALOPERIDOL LACTATE INJ 5 MG/1 ML VIAL IM ONE (05:18)
[2017-07-06] MEDS: HEPARIN SOD (PORCINE) 5,000 UNIT/ML 1 ML SYRINGE SUBCUT SCH ×2 (06:24→14:03)
[2017-07-06 09:18] LABS: CREATINE KINASE MB 1.76 ng/mL (<4.55); TROPONIN I 0.123 ng/mL
[2017-07-06] MEDS ORDERED: ASPIRIN 81 MG TABLET, CHEWABLE PO SCH (10:00)
[2017-07-06] MEDS ORDERED: DOCUSATE SODIUM 100 MG CAPSULE PO SCH (10:00)
[2017-07-06] MEDS ORDERED: METHYLPREDNISOLONE INJ 40 MG/1 ML SDV IV ONE (10:30)
--- NOTE | 2017-07-06 10:45 | PDOC CONSULTATION ---
Consultation Consult Date: 07/06/17 Attending physician:: BIBIANA HERNANDEZ Consult reason:: Positive troponin I History of Present Illness Admission Date/PCP: 07/05/17 22:20 DAVID ANGELO MD Patient complains of: Shortness of breath History of Present Illness: KAREN MALDONADO is a 56 year old female with a past medical history of COPD with persistent tobacco abuse, obstructive sleep apnea, polypharmacy versus polysubstance abuse. Stage III chronic kidney disease. Patient is accompanied by her daughter who is able to provide history and presents after 24 hours of confusion and difficulty staying awake. No new medications, no fever, EMS discovered her with hypotension of 74/54, starting IV fluids. Oxygen saturations were 72% and started on nonrebreather. In the emergency room she has had found to have hypercapnic respiratory failure with PCO2 68 and started on BiPAP, troponin I elevated at 0.17 without acute EKG changes. Her urine drug screen reveals benzodiazepines, opiates and amphetamines. She has history of similar presentation and is referred to the hospitalist for admission. This history obtained by the hospitalist was reviewed and confirmed. Patient gives history of stents in her abdomen. She also describes hardening of her arteries. Patient however denied having any previous heart attack, angina, congestive heart failure or any prior history of coronary intervention. Patient was admitted with respiratory distress and was noted to be hypoxemic and hypercarbic. Patient has history of chronic smoking. Past Medical History Cardiac Medical History: Reports: Hyperlipidema, Hypertension Pulmonary Medical History: Reports: Bronchitis, Chronic Obstructive Pulmonary Disease (COPD), Pneumonia Musculoskeltal Medical History: Reports: Arthritis Psychiatric Medical History: Reports: Depression, General Anxiety Disorder, Substance Abuse, Tobacco Dependency Past Surgical History Past Surgical History: Reports: Cholecystectomy, Hysterectomy, Tubal Ligation Social History Information Source: Patient Lives with: Family Smoking Status: Current Every Day Smoker Cigarettes Packs Per Day: 1.5 Number of Years Smokin Last Time Smoked: 07/04/17 Frequency of Alcohol Use: None Hx Recreational Drug Use: No Drugs: Marijuana Hx Prescription Drug Abuse: No - Advance Directive Resuscitation Status: Full Code Surrogate healthcare decision maker:: Patient's is the surrogate decision-maker Family History Family History: Reviewed & Not Pertinent, Hypertension Parental Family History Reviewed: Yes Children Family History Reviewed: Yes Sibling(s) Family History Reviewed.: Yes Medication/Allergy Home Medications: Alprazolam [Xanax] 1 mg PO QIDP PRN 07/06/17 Gabapentin [Neurontin] 600 mg PO QID 07/06/17 Lisinopril [Prinivil] 20 mg PO DAILY 07/06/17 Mirtazapine [Remeron 15 mg Tablet] 7.5 mg PO QHS 07/06/17 Olanzapine [Zyprexa] 10 mg PO DAILY 07/06/17 Paroxetine HCl [Paxil 20 mg Tablet] 20 mg PO DAILY 07/06/17 Zolpidem Tartrate [Ambien] 10 mg PO HSP PRN 07/06/17 Allergies/Adverse Reactions: No Known Allergies Allergy (Verified 07/05/17 17:02) Review of Systems Review of Systems: Please see history of present illness and past medical history as wall. Constitutional: No fever or chills reported. Head : No recent chronic headaches, recent head injury. Eyes: No recent eye pain, diplopia, redness, discharge, acute visual changes. Ears: No recent chronic ear pain, acute hearing loss, ear discharge. Oral cavity: No recent ulcerations, bleeding, oral cavity discomfort. Neck: No recent acute neck pain reported. Hematologic: No recent easy bruising or bleeding or hematologic malignancy reported. Lymphatic: No recent lymphatic malignancy, chronic lymphadenopathy reported yet Cardiovascular system review: See history of present illness. Respiratory system review: History of chronic cough and wheezing but denies hemoptysis, blood clots in the lungs reported. Mild Shortness of breath on exertion Gastrointestinal system review: Negative for any recent acute or chronic abdominal pain, hematemesis, melena, recent change in bowel habits. Genitourinary system review: No recent acute or chronic hematuria, flank pain, UTI etc. reported. Skin system review: Negative for any recent abnormal bruising, no rash, no pruritus reported. Neurologic: No prior history of strokes, mini strokes, seizure disorder. Psychologic: No history of major psychosis or major depression reported. Musculoskeletal: Minor aches and pains reported. No acute joint swelling reported. Endocrine: No recent polyuria, polydipsia, recent heat or cold intolerance. Physical Exam Vital Signs: Temp Pulse Resp BP Pulse Ox 98.2 F 86 10 L 104/58 L 93 07/06/17 07:27 07/06/17 07:54 07/06/17 07:54 07/06/17 07:27 04/12/18 09:00 Intake & Output 07/05/17 07/06/17 07/07/17 06:59 06:59 06:59 Intake Total 1000 Balance 1000 Weight 81.6 kg Exam: GENERAL: well-nourished and in no acute distress. Alert and oriented x3 HEAD: Atraumatic, normocephalic. EYES: Pupils equal round and reactive to light, extraocular movements intact, sclera anicteric, conjunctiva are normal. ENT: TMs normal, nares patent, oropharynx clear without exudates. Moist mucous membranes. No oral ulcerations or bleeding gums noted NECK: supple without lymphadenopathy. Trachea is central. No cervical or axillary lymphadenopathy noted. Carotids are 2+, JVD WNL LUNGS: Respiration seems nonlabored, no significant accessory muscle action noted. Bilateral wheezing and coarse crackles noted. No significant dullness noted on percussion. CHEST: Palpation of the chest wall shows no significant chest wall tenderness. No other significant abnormalities noted. HEART: [place] [employer]ER, No PSH, 1/6 BR[place] aortic area, 1/6 miller systolic murmur mitral area, no rubs, no gallops. ABDOMEN: Soft, no significant tenderness appreciated, normoactive bowel sounds. No guarding, no rebound. No rigidity noted . No masses appreciated. EXTREMITIES: Pedal pulses are 1-2+, no calf tenderness noted. No clubbing or cyanosis. Trace to 1+ pedal edema noted NEUROLOGICAL: Focused neurological exam showed no significant neurologic deficit. Normal speech, no focal weakness appreciated. PSYCH: Normal mood, normal affect. Judgment and insight within normal limits. SKIN: No significant ecchymosis, skin is noted to be warm. MUSCULOSKELETAL EXAM: No significant acute joint swelling noted. Results Laboratory Results: 07/06/17 03:03 07/06/17 03:03 07/06/17 07/06/17 07/06/17 01:20 03:03 03:03 WBC 7.6 RBC 4.04 Hgb 11.0 L Hct 33.9 L MCV 84 MCH 27.2 MCHC 32.4 RDW 15.9 H Plt Count 223 Seg Neutrophils % 56.2 Lymphocytes % 36.4 Monocytes % 5.5 Eosinophils % 0.9 Basophils % 1.0 Absolute Neutrophils 4.3 Absolute Lymphocytes 2.8 Absolute Monocytes 0.4 Absolute Eosinophils 0.1 Absolute Basophils 0.1 Carbonic Acid 1.66 H HCO3/H2CO3 Ratio 15:1 ABG pH 7.28 L ABG pCO2 55.3 H ABG pO2 59.4 L ABG HCO3 25.2 ABG O2 Saturation 87.0 L ABG Base Excess -2.2 FiO2 4 Sodium 137.3 Potassium 4.9 Chloride 104 Carbon Dioxide 23 Anion Gap 10 BUN 37 H Creatinine 2.38 H Est GFR ( Amer) 25 L Est GFR (Non-Af Amer) 21 L Glucose 91 Calcium 8.4 07/06/17 07/06/17 07/06/17 03:03 03:03 08:36 Creatine Kinase 87 CK-MB (CK-2) 1.22 1.76 Troponin I 0.171 0.123 EKG Comments: Sinus tachycardia without any acute ST-T wave changes noted Impressions: Chest X-Ray 07/05/17 16:52 IMPRESSION: Chest is unremarkable except for minor blunting right costophrenic angle concerning for trace pleural fluid. Head CT 07/05/17 17:50 IMPRESSION: NORMAL BRAIN CT WITHOUT CONTRAST. EVIDENCE OF ACUTE STROKE: NO. Assessment & Plan - Diagnosis (1) Elevated troponin Is this a current diagnosis for this admission?: Yes (2) Acute respiratory failure with hypoxia and hypercarbia Is this a current diagnosis for this admission?: Yes (3) Acute on chronic renal failure Qualifiers: Chronic kidney disease stage: stage 3 (moderate) Is this a current diagnosis for this admission?: Yes (4) COPD (chronic obstructive pulmonary disease) Qualifiers: COPD type: COPD with acute exacerbation Qualified Code(s): J44.1 - Chronic obstructive pulmonary disease with (acute) exacerbation Is this a current diagnosis for this admission?: Yes (5) Mental status change Qualifiers: Altered mental status type: unspecified Qualified Code(s): R41.82 - Altered mental status, unspecified Is this a current diagnosis for this admission?: Yes (6) Status post abdominal aortic aneurysm (AAA) repair Is this a current diagnosis for this admission?: Yes (7) History of renal stent Is this a current diagnosis for this admission?: Yes (8) Sleep apnea syndrome Qualifiers: Sleep apnea type: unspecified type Qualified Code(s): G47.30 - Sleep apnea , unspecified Is this a current diagnosis for this admission?: Yes (9) Hyperlipidemia Qualifiers: Hyperlipidemia type: unspecified Qualified Code(s): E78.5 - Hyperlipidemia , unspecified Is this a current diagnosis for this admission?: Yes - Notes Notes: Elevated troponin: These are in the non-STEMI range. Patient does have atherosclerotic disease which includes renal stents and also a stent graft in the abdominal aorta. Patient will benefit from nuclear stress test and management of atherosclerotic disease. Will schedule a stress test when patient respiratory status has improved. Acute respiratory failure with hypercarbia: Patient being managed by hospitalist. Consider pulmonary evaluation. Continue steroids and bronchodilator therapy as needed. COPD exacerbation: Continue current management plans with bronchodilator therapy and steroids and antibiotic therapy as needed. Mental status changes: This has improved. Most likely related to COPD exacerbation. Abdominal aortic aneurysm history: Patient has stent grafts. History of renal stents: Recommend statin therapy. Start Plavix 75 mg p.o. daily. May consider stopping aspirin if needed. Otherwise continue with. Acute on chronic renal failure: Possibly related to hypotension being noted. Patient may have atherosclerotic chronic kidney disease. Sleep apnea syndrome: Patient has a history of it. Proper treatment may reduce atherosclerotic and cardiac events. Hyperlipidemia: Previous LDL was over 200. Will start patient on Lipitor 80 mg p.o. nightly. Will optimize medical therapy. Have ordered a 2D echo for risk stratification. Will schedule a nuclear stress test when patient stable from respiratory point of view. - Time Time Spent: 30 to 50 Minutes - CODE STATUS was discussed, patient remains full code. Surrogate decision-maker unchanged. Multiple medical problems were addressed. More than 50% of the time spent coordinating care, discussing management plans with involved caregivers. Management plans discussed with involved personnels. Medical decision making was of moderate to high complexity , patient's has multiple comorbidities. Medications reviewed and adjusted accordingly: Yes
[2017-07-06] MEDS ORDERED: AZITHROMYCIN 500 MG in DEXTROSE 5%-WATER 250 ML IV ONE (11:00)
[2017-07-06] MEDS ORDERED: CLOPIDOGREL BISULFATE 300 MG TABLET PO ONE (11:30)
[2017-07-06 13:03] VITALS: BP 139/72
--- NOTE | 2017-07-06 13:08 | PSYCHOLOGICAL NOTE ---
Psych Note - Psych Note Psych Note: Reason for consult: Patient refusing medical treatment, confrontational behavior Evaluation: 1330 Final Disposition: 1445 Contact Permissions: Patient's daughter ; Patient's Stevan Gomez Patient is a 56 year old female. Patient reports she is angry because an involuntary commitment was done last night. Patient reports she hates the hospital and the staff and did not want to be here. Patient reports she has a long list of health issues to include COPD, history of aneurysms, and ulcers. Patient reports she is currently not wanting to harm herself or others and never made a statement last night or today that would warrant a psych assessment. Patient reports no one told her why she was involuntary committed and she was served the papers without warning. Patient reports she was concerned that the physician did not fully assess her for mental health. Clinician explained the mental health team sees patients from 7 AM to 5 PM 7 days a week and stated that is why clinician is there for the assessment, and was not here at night. Patient reports she has never been to a psychiatric inpatient hospital before. Patient reports she sees an outpatient therapist and medication management provider for PTSD at [facility]. Patient reports she has history of substance use. Patient reports she currently smokes and will continue to smoke even though she has COPD because she does not care, and states that she does not want to now but long-term rather smoke then take care of her health. Patient stated " I can do whatever the fuck I want, these bitches won't let me wash my own ass without standing there by the bathroom". Patient reports she lives with her daughters and , stating her has been at her bedside since she got here. Patient reports mental health team has permission to contact both of her daughters and who is present in the room. Patient reports she wants to check out of this hospital and check into a different hospital. Patient reports "I want to be able to wash my own ass, not have people stare at me". Patient reports she felt staff were not attentive to her, and did not give her choices.Patient reports that the sitter that has been with her throughout the day has been nice but states that she was not told why she has one. Patient stated once she leaves she is going to another hospital and will not be returning to [facility]. Collateral Information: Patient's daughter Patient's daughter reports she has never been concerned for patient harming herself or others. Patient's daughter reports patient takes her medications that are prescribed at her outpatient therapist office. Patient's daughter reports patient has an appointment monthly and has one coming up at the end of the month. Patient's daughter reports that she does not want her mom to smoke but cannot tell her what to do. Patient's daughter reports they all live together in their home and they support her and her decisions. Patient's daughter reports that if she wants to go to a different hospital they will transport her and would like her to be able to discharge today as they do not feel she should be involuntarily committed. Patient's daughter reports she wants patient to know that she called EMS last night because she was concerned about patient's breathing. Patient's daughter reports that patient oxygen levels were at the low 70s last night and stated she was just concerned. Diagnosis: 292.9 (F 11.99) unspecified opioid related disorder 292.9 (F 15.99) unspecified stimulant related disorder; amphetamine V 15.81 (Z91.19) nonadherence to medical treatment Impression/Plan: Recommendation to rescind involuntary commitment due to patient not meeting criteria [facility] 122C. Patient is psychiatrically cleared for discharge. Recommendation for patient to follow-up with outpatient therapy provider [facility]. Recommendation for patient to receive substance abuse treatment. Clinician observed patient is confrontational with staff, and is criticizing every aspect of her care however she is not displaying symptoms of psychosis, not endorsing suicidal or homicidal ideation. Clinician observed when exiting the room patient had an argument with her daughter over coming to the hospital, however this is a civil dispute/ family discord and not mental health. Although patient is refusing breathing treatments and other medical recommendations made by the attending physician, her not cooperating with staff does not warrant an involuntary commitment. Patient has the right to refuse medical treatment when not under the involuntary commitment, and can choose which providers/hospitals she would like to go to. Attending physician in agreement with plan. Consulted with Dr. Shetty regarding the management and care of patient.
[2017-07-06] MEDS ORDERED: METHYLPREDNISOLONE INJ 40 MG/1 ML SDV IV SCH (18:00)
[2017-07-06] MEDS ORDERED: ATORVASTATIN CALCIUM 40 MG TABLET PO SCH (22:00)
[2017-07-06] MEDS ORDERED: ATORVASTATIN CALCIUM 80 MG TABLET PO SCH (22:00)
[2017-07-07] MEDS ORDERED: CLOPIDOGREL BISULFATE 300 MG TABLET PO SCH (10:00)
[2017-07-07] MEDS ORDERED: AZITHROMYCIN 500 MG in DEXTROSE 5%-WATER 250 ML IV SCH (10:00)
--- NOTE | 2017-08-15 10:03 | PDOC DISCHARGE SUMMARY ---
General - Admit/Disc Date/PCP Admission Date/Primary Care Provider: 07/05/17 22:20 DAVID ANGELO MD Discharge Date: 07/06/17 - Discharge Diagnosis (1) Acute on chronic renal failure Is this a current diagnosis for this admission?: Yes (2) COPD (chronic obstructive pulmonary disease) Is this a current diagnosis for this admission?: Yes (3) Elevated troponin Is this a current diagnosis for this admission?: Yes (4) Polysubstance abuse Is this a current diagnosis for this admission?: Yes - Additional Information Resuscitation Status: Full Code Home Medications: Alprazolam [Xanax] 1 mg PO QIDP PRN 07/06/17 Gabapentin [Neurontin] 600 mg PO QID 07/06/17 Lisinopril [Prinivil] 20 mg PO DAILY 07/06/17 Mirtazapine [Remeron 15 mg Tablet] 7.5 mg PO QHS 07/06/17 Olanzapine [Zyprexa] 10 mg PO DAILY 07/06/17 Paroxetine HCl [Paxil 20 mg Tablet] 20 mg PO DAILY 07/06/17 Zolpidem Tartrate [Ambien] 10 mg PO HSP PRN 07/06/17 History of Present Illness History of Present Illness: KAREN MALDONADO is a 57 year old female with past medical history of COPD with persistent tobacco abuse, FABIO, polypharmacy, polysubstance abuse and stage III CKD. Patient is accompanied by her daughter who is able to provide history. Patient prep presents after 24 hours of confusion and difficulty staying awake. No new medications, no fever and EMS discovered her with hypotension of 74/54 and patient started on IV fluids. Her oxygen saturation was 72% and patient started on nonrebreather. In the emergency room she has had hypercapnia, respiratory failure with PCO2 of 68 and started on BiPAP. Her initial blood work shows elevated troponin first set which was 0.17 without acute EKG changes. Her urine drug screen reveals benzodiazepines, opiates and amphetamine. She has history of similar presentation and was referred to the hospitalist for admission Hospital Course Hospital Course: Patient has been managed with breathing treatment and BiPAP support and for her polysubstance abuse she is started on Narcan as needed. For her acute on chronic renal failure patient was started with IV fluids and nephrotoxic agents were avoided. While she is being treated adequately, patient wants to leave. I myself and the nurse in charge of her try to convince her to stay but patient is adamant and discharged herself AGAINST MEDICAL ADVICE. Physical Exam Vital Signs: Temp Pulse Resp BP Pulse Ox 98.2 F 105 H 24 H 139/72 H 90 L 07/06/17 11:42 07/06/17 13:31 07/06/17 13:31 07/06/17 11:42 07/06/17 11:42 General appearance: PRESENT: no acute distress Eye exam: PRESENT: conjunctiva pink, EOMI, PERRLA. ABSENT: scleral icterus Mouth exam: PRESENT: moist, tongue midline Neck exam: ABSENT: carotid bruit, JVD, lymphadenopathy, thyromegaly Respiratory exam: PRESENT: clear to auscultation abraham. ABSENT: rales, rhonchi, wheezes Cardiovascular exam: PRESENT: RRR. ABSENT: diastolic murmur, rubs, systolic murmur Neurological exam: PRESENT: alert, awake, oriented to time, oriented to situation Results Laboratory Results: 07/06/17 03:03 07/06/17 03:03 07/06/17 07/06/17 07/06/17 03:03 03:03 08:36 Creatine Kinase 87 CK-MB (CK-2) 1.22 1.76 Troponin I 0.171 0.123 Impressions: Chest X-Ray 07/05/17 16:52 IMPRESSION: Chest is unremarkable except for minor blunting right costophrenic angle concerning for trace pleural fluid. Head CT 07/05/17 17:50 IMPRESSION: NORMAL BRAIN CT WITHOUT CONTRAST. EVIDENCE OF ACUTE STROKE: NO. Qualifiers - * PATIENT BEING DISCHARGED WITH ANY OF THE FOLLOWING DIAGNOSIS: No
== END 2017-07-06 15:16 | disposition left against medical advice (07) | DRG 189 ==
LOC: ER 16:12 → EH 22:20 → 3N 07-06 00:10
PROVIDERS: ADMIT Internal Medicine; ATTEND Internal Medicine
PROC: 5A09357 Assistance with Respiratory Ventilation, Less than 24 Consecutive Hours, Continuous Positive Airway Pressure (ICD-10-PCS; principal; 2017-07-05)
DX: J96.02 Acute respiratory failure with hypercapnia (principal); N17.9 Acute kidney failure, unspecified; J44.1 Chronic obstructive pulmonary disease with (acute) exacerbation; F11.10 Opioid abuse, uncomplicated; F12.10 Cannabis abuse, uncomplicated; F13.10 Sedative, hypnotic or anxiolytic abuse, uncomplicated; F15.10 Other stimulant abuse, uncomplicated; R41.82 Altered mental status, unspecified; I12.9 Hypertensive chronic kidney disease with stage 1 through stage 4 chronic kidney disease, or unspecified chronic kidney disease; N18.3 Chronic kidney disease, stage 3 (moderate); J44.9 Chronic obstructive pulmonary disease, unspecified; G47.33 Obstructive sleep apnea (adult) (pediatric); I95.9 Hypotension, unspecified; E78.5 Hyperlipidemia, unspecified; M19.90 Unspecified osteoarthritis, unspecified site; F41.1 Generalized anxiety disorder; F32.9 Major depressive disorder, single episode, unspecified; Z90.49 Acquired absence of other specified parts of digestive tract; Z98.51 Tubal ligation status; R74.8 Abnormal levels of other serum enzymes; Z96.0 Presence of urogenital implants; Z95.828 Presence of other vascular implants and grafts; F17.210 Nicotine dependence, cigarettes, uncomplicated; Z90.710 Acquired absence of both cervix and uterus; Z79.899 Other long term (current) drug therapy; Z79.02 Long term (current) use of antithrombotics/antiplatelets
CPT/HCPCS: 36415; 36600; 70450; 71045; 80048; 80053; 80307; 81001; 82550; 82553; 82803; 82962; 84484; 85025; 87040; 93005; 93010; 94640; 94660; 96360; 99291; J1630; J1644; J2920; J7030

== ENCOUNTER 2017-12-02 20:28 | Emergency (ER) | payer MEDICAID ==
[~2017-12-02 20:28] MED LIST: ROCURONIUM BROMIDE INJ 50 MG/5 ML VIAL IV ONE
[2017-12-02] MEDS ORDERED: NORMAL SALINE 1000 ML 2,000 ML IV ONE (20:40)
[2017-12-02] MEDS ORDERED: ROCURONIUM BROMIDE INJ 50 MG/5 ML VIAL IV ONE (20:52)
[2017-12-02] MEDS ORDERED: FENTANYL CITRATE INJ/PF 100 MCG/2 ML AMPUL IV PRN (20:52)
[2017-12-02] MEDS ORDERED: PROPOFOL 1,000 MG/100 ML INFUS..BTL IV PRN (20:52)
[2017-12-02] MEDS ORDERED: KETAMINE HCL INJ 500 MG/10 ML VIAL IV ONE (20:52)
[2017-12-02] MEDS ORDERED: RINGERS SOLUTION,LACTATED 1,000 ML IV ONE ×2 (20:53→20:54)
[2017-12-02] MEDS ORDERED: AMPICILLIN SOD/SULBACTAM 3 GM VIAL IV ONE (20:59)
--- NOTE | 2017-12-02 20:59 | ER Document Report ---
ED General - General Stated Complaint: RESPIRATORY DISTRESS Time Seen by Provider: 12/02/17 20:50 Cannot obtain history due to: Unstable vital signs, Altered mental status Notes: Patient is a 57-year-old female who presents in triage obtunded, in respiratory distress. No additional history can be obtained as patient is nonverbal, GCS 3. TRAVEL OUTSIDE OF THE [place] IN LAST 30 DAYS: No - Related Data Allergies/Adverse Reactions: No Known Allergies Allergy (Verified 07/05/17 17:02) Past Medical History - General Information source: [facility] Records Cannot obtain history due to: Unstable vital signs, Altered mental status - Social History Smoking Status: Current Every Day Smoker Lives with: Family Family History: Reviewed & Not Pertinent, Hypertension - Past Medical History Cardiac Medical History: Reports: Hx Hypercholesterolemia, Hx Hypertension Pulmonary Medical History: Reports: Hx Bronchitis, Hx COPD, Hx Pneumonia Renal/ Medical History: Denies: Hx Peritoneal Dialysis Musculoskeletal Medical History: Reports Hx Arthritis Psychiatric Medical History: Reports: Hx Depression Past Surgical History: Reports: Hx Cholecystectomy, Hx Hysterectomy, Hx Tubal Ligation - Immunizations Hx Diphtheria, Pertussis, Tetanus Vaccination: Yes Hx Pneumococcal Vaccination: 01/29/15 Review of Systems - Review of Systems -: Yes ROS unobtainable due to patient's medical condition Physical Exam - Vital signs Vitals: Pulse Ox 100 12/02/17 20:40 Interpretation: Tachycardic, Hypoxic, Tachypneic Notes: PHYSICAL EXAMINATION: GENERAL: Very ill in appearance, lethargic, GCS 3 HEAD: Atraumatic, normocephalic. EYES: Pupils 3 mm, sluggishly reactive bilaterally, sclera anicteric, conjunctiva are normal. ENT: nares patent, oropharynx clear without exudates. Dry mucous membranes. NECK: supple without lymphadenopathy LUNGS: Respiratory distress, shallow, rapid breathing, scattered rhonchi in all lung saez. Diminished air movement throughout. HEART: Regular tachycardia without murmurs ABDOMEN: Soft, normoactive bowel sounds. No guarding, no rebound. No masses appreciated. EXTREMITIES: Trace edema in the bilateral lower extremities. No cyanosis. NEUROLOGICAL: GCS 3. No spontaneous movement or response to noxious stimuli PSYCH: Obtunded SKIN: Warm, Dry, poor skin turgor Course - Re-evaluation Re-evalutation: 12/02/17 20:56 Documentation is delayed as I have been at this patient's bedside continuously for the past 30 minutes. In summary the patient presented in acute respiratory distress, GCS 3, agonal, rapid breathing with diffuse crackles and upper airway secretions throughout. The patient had no response to noxious stimuli or verbal stimuli for airway protection and ventilatory assistance the patient was immediately intubated. Ketamine and rocuronium were used. Videoscope intubation was successful on first pass although there was a very prominent amount of oral airway secretions present that required suctioning prior to passage of ET tube. Post intubation x-ray showed ET tube was slightly high so this was advanced 1 cm. No additional findings on initial chest x-ray. 2 points of IV access established, I did place a right external jugular vein IV. Patient did become moderately hypotensive after initial intubation. This did respond to fluid resuscitation. Patient will placed on propofol for sedation. A full panel laboratories is pending. Temperature Marinelli has been placed. Primary concern is that the patient had a narcotic overdose with possible associated aspiration versus possible Narcan induced pulmonary edema as patient did have prominent B-lines on initial pleural ultrasound. Family at the bedside reports that patient had been lying in bed since 5 PM last night after taking "some morphine tablets she got from a friend". They stated that they were unable to wake her and that she did not talk all day. The daughter gave her 2 intranasal sprays of 2 mg of naloxone and thereafter the patient began having respiratory distress. The patient did apparently have multiple episodes of vomiting last night however in the setting of being quite sedated so aspiration does remain on the differential. The patient has been started on IV Unasyn for coverage of a possible aspiration. The patient is critically ill, will require frequent reassessments. 12/02/17 21:20 Patient unfortunately became hypotensive despite holding propofol and ongoing fluid resuscitation. Pressures were coming down into the 50s systolic. A femoral central line was therefore placed without any difficulty. Norepinephrine infusion has been initiated. Fluid resuscitation is ongoing. FiO2 was up titrated to 100% due to initial concerns of possible hypoxia. We are working on down titrating FiO2 back to a lower level. A repeat chest x-ray has also been obtained given patient's hypotension and lower oxygen level. 12/02/17 22:01 I have been at the patient's bedside for most of the past hour as she has continued to have periods where she becomes hypoxic, responsive to aggressive suctioning of the ET tube. Unfortunately have continued to up titrate her FiO2 back up to 100%. I have increased her PEEP to 10. Currently saturating 89% on these settings. Repeat chest x-ray was obtained did not show any acute changes. Patient has had only 30 cc of urine output since Marinelli catheter was placed on was 2 hours ago. Her initial pH is markedly low suggesting a metabolic acidosis his PCO2 is only minimally elevated. Apparently the patient was lying in bed for greater than 24 hours, has stage I pressure ulcers throughout her buttock and low back. Temperature Marinelli does reveal fever of 100.6F. The patient also has a noted leukocytosis. She does meet sepsis criteria and has been broadened to cefepime and vancomycin. Additional IV fluids are being initiated given on going poor urine output and meeting sepsis criteria. Awaiting laboratories. 12/02/17 22:23 Patient continues to have borderline hypoxia 90-91% despite 100% fi02 and peep at 12. Labs show severe renal failure, GFR 6, with associated rhabdomyolysis. She also has acute liver failure likely shock liver versus related to rhabdomyolysis. I have contacted [facility] and have requested an emergent transfer as we do not have nephrology available and the patient may require dialysis in this context. Awaiting callback. 12/02/17 22:43 I discussed this case with the accepting ICU physician Dr. Flores who has accepted the patient for transfer. He is in agreement with management although has recommended acetaminophen level as well as starting N-acetylcysteine given transaminitis. This has been completed. Patient is having improvement in both her blood pressure and oxygen saturation. Her norepinephrine is currently at 6 although her map is currently 93 so we are weaning down. Her current SPO2 is 94 % which is the best it has been. This is on a PEEP of 15. Will continue to allow alveolar recruitment and then hopefully be able to down titrate on FiO2. Patient continues to have very minimal urine output, continue with aggressive IV fluid resuscitation. 12/03/17 00:12 Transport has arrived for patient transfer. She has continued to improve hemodynamically and we have been able to wean her norepinephrine down to 4. Saturations up to 97% on previous noted settings. Patient is appropriate for transport at this time. Bedside report has been given by myself. - Vital Signs Vital signs: Temp Pulse Resp BP Pulse Ox 100.6 F H 118 H 18 106/72 94 12/02/17 23:55 12/02/17 22:40 12/02/17 23:55 12/02/17 23:55 12/02/17 23:55 - Laboratory Result Diagrams: 12/02/17 21:20 12/02/17 21:20 Laboratory results interpreted by me: 12/02/17 12/02/17 12/02/17 21:20 21:20 21:20 WBC 19.3 H MCHC 31.6 L RDW 17.0 H Seg Neutrophils % 87.9 H Lymphocytes % 9.1 L Monocytes % 2.6 L Absolute Neutrophils 17.0 H VBG pH VBG HCO3 Carbon Dioxide 17 L BUN 48 H Creatinine 6.94 H Est GFR ( Amer) 7 L Est GFR (Non-Af Amer) 6 L Glucose 134 H Lactic Acid 3.6 H Calcium 7.4 L Direct Bilirubin 0.6 H AST 929 H ALT 325 H Creatine Kinase 6890 H Urine Protein Acetaminophen 12/02/17 12/02/17 12/02/17 21:20 21:20 21:30 WBC MCHC RDW Seg Neutrophils % Lymphocytes % Monocytes % Absolute Neutrophils VBG pH 7.04 L* VBG HCO3 16.5 L Carbon Dioxide BUN Creatinine Est GFR ( Amer) Est GFR (Non-Af Amer) Glucose Lactic Acid Calcium Direct Bilirubin AST ALT Creatine Kinase Urine Protein 100 H Acetaminophen < 10 L - Diagnostic Test Radiology reviewed: Image reviewed, Reports reviewed Radiology results interpreted by me: 12/03/17 04:01 Chest x-ray: ET tube in the appropriate position. No acute infiltrates. - EKG Interpretation by Me Additional EKG results interpreted by me: 12/03/17 04:04 Sinus tachycardia. Rate 128. No ST elevations or depressions. QTC is 467. Procedures - Central Line Right Femoral Consent obtained: Yes Central line pre-insertion: Sterile PPE donned, Chloraprep applied, Sterile drapes applied Central line lumen type: Triple Ultrasound guided: Yes CM at insertion site: 30 Line secured with sutures: Yes Central line post-insertion: Blood return from lumens, Biopatch applied, Sutured , Sterile dressing applied Number of attempts: 1 Complications: No - Intubation Orotracheal Airway evaluation: Normal anatomy, Copious secretions Mallampati Classification: Class 1 Medications: Ketamine, Other - Rocuronium Intubation method: Orotracheal Blade type: Olson Blade size: 4 Equipment used: Glidescope ETT size: 7.5 ETT secured at: Lips ETT secured at (cm): 22 Breath Sounds after Intubation: Equal End tidal CO2 confirmed: Yes Ventilator settings: SIMV Tidal volume: 400 FiO2: 100 Respirations: 16 PEEP: 10 Post Intubation Xray: Yes Intubation Complications: No complications Critical Care Note - Critical Care Note Total time excluding time spent on procedures (mins): 125 Comments: Critical care time spent obtaining history from patient or surrogate, discussions with consultants, development of treatment plan with patient or surrogate, evaluation of patient's response to treatment, examination of patient , ordering and performing treatments and interventions, ordering and review of laboratory studies, re-evaluation of patient's condition, ordering and review of radiographic studies and review of old charts Discharge - Discharge Clinical Impression: Polysubstance abuse, Septic shock, Respiratory distress Sepsis Qualifiers: Sepsis type: sepsis due to unspecified organism Qualified Code(s): A41.9 - Sepsis, unspecified organism Fever Qualifiers: Fever type: unspecified Qualified Code(s): R50.9 - Fever, unspecified Renal failure Qualifiers: Renal failure chronicity: acute on chronic Acute renal failure type: unspecified Chronic kidney disease stage: unspecified stage Qualified Code(s): N17.9 - Acute kidney failure, unspecified; N18.9 - Chronic kidney disease, unspecified; N18.9 - Chronic kidney disease, unspecified Condition: Critical Disposition: [facility] Referrals: DAVID ANGELO MD [Primary Care Provider] - Follow up as needed
--- NOTE | 2017-12-02 21:03 | RADIOLOGY REPORT (SQ) ---
"EXAM DESCRIPTION: CHEST SINGLE VIEW COMPLETED DATE/TIME: 12/02/2017 8:55 pm REASON FOR STUDY: post intubation, resp distress COMPARISON: 07/05/2017 EXAM PARAMETERS: NUMBER OF VIEWS: One view. TECHNIQUE: Single frontal radiographic view of the chest acquired. RADIATION DOSE: NA LIMITATIONS: None. FINDINGS: LUNGS AND PLEURA: No opacities, masses or pneumothorax. No pleural effusion. MEDIASTINUM AND HILAR STRUCTURES: No masses. Contour normal. HEART AND VASCULAR STRUCTURES: Heart normal in size. Normal vasculature. BONES: No acute findings. HARDWARE: None in the chest. OTHER: Endotracheal tube tip between thoracic inlet and reji. Nasogastric tube extends into the le ft upper quadrant. IMPRESSION: Good position of support apparatus. No pneumothorax. TECHNICAL DOCUMENTATION: JOB ID: [id number] [employer] | [employer]- All Rights Reserved Reading location - IP/workstation name: [email or web address]"
[2017-12-02] MEDS ORDERED: NOREPINEPHRINE BITARTRATE INJ/PF 4 MG/4 ML SDV IV ONE (21:06)
[2017-12-02 21:36] LABS: VENOUS BLOOD BASE EXCESS -14.5 mmol/L; VENOUS BLOOD HCO3 16.5 mmol/L (20-32); VENOUS BLOOD PCO2 62.2 mmHg (35-63)
[2017-12-02 21:40] LABS: ABSOLUTE BASOPHILS # (AUTO) 0.1 10^3/uL (0.0-0.2); ABSOLUTE LYMPHOCYTES (AUTO) 1.8 10^3/uL (0.5-4.7); ABSOLUTE MONOCYTES (AUTO) 0.5 10^3/uL (0.1-1.4); BASOPHILS % (AUTO) 0.4 % (0-2); HEMATOCRIT 38.6 % (36.0-47.0); HEMOGLOBIN 12.2 g/dL (12.0-15.5); LYMPHOCYTES % (AUTO) 9.1 % (13-45); MEAN CORPUSCULAR HEMOGLOBIN 27.4 pg (27.0-33.4); MEAN CORPUSCULAR HGB CONC 31.6 g/dL (32.0-36.0); MEAN CORPUSCULAR VOLUME 87 fl (80-97); MONOCYTES % (AUTO) 2.6 % (3-13); PLATELET COUNT 293 10^3/uL (150-450); RED BLOOD COUNT 4.46 10^6/uL (3.72-5.28); SEGMENTED NEUTROPHILS % (AUTO) 87.9 % (42-78); TOTAL CELLS COUNTED % (AUTO) 100 %; WHITE BLOOD COUNT 19.3 10^3/uL (4.0-10.5)
[2017-12-02 21:41] LABS: VENOUS BLOOD PH 7.04 (7.30-7.42)
[2017-12-02 21:51] LABS: ALANINE AMINOTRANSFERASE 325 U/L (9-52); ALBUMIN 3.6 g/dL (3.5-5.0); ALKALINE PHOSPHATASE 114 U/L (38-126); ANION GAP 17 (5-19); BILIRUBIN,DIRECT 0.6 mg/dL (0.0-0.4); BILIRUBIN,TOTAL 0.8 mg/dL (0.2-1.3); BLOOD UREA NITROGEN 48 mg/dL (7-20); CALCIUM 7.4 mg/dL (8.4-10.2); CARBON DIOXIDE 17 mmol/L (22-30); CHLORIDE 103 mmol/L (98-107); GLUCOSE 134 mg/dL (75-110); POTASSIUM 4.9 mmol/L (3.6-5.0); SODIUM 137.3 mmol/L (137-145)
[2017-12-02] MEDS ORDERED: VANCOMYCIN HCL INJ 1000 MG VIAL IV ONE (22:01)
[2017-12-02] MEDS ORDERED: IPRATROPIUM/ALBUTEROL 0.5-2.5 MG/3 ML AMPUL NEB ONE (22:05)
[2017-12-02 22:10] LABS: ASPARTATE AMINO TRANSFERASE 929 U/L (14-36); CREATINE KINASE 6890 U/L (30-135)
[2017-12-02] MEDS ORDERED: CEFEPIME 2 GM/D5W RTU 2 GM/50 ML RTUPB IV ONE (22:15)
--- NOTE | 2017-12-02 22:16 | RADIOLOGY REPORT (SQ) ---
XR CHEST 1 VIEW HISTORY: Chest pain.. COMPARISON: Radiographs from earlier the same day. FINDINGS/IMPRESSION: Endotracheal tube tip 5.2 cm in the reji. Enteric tube side-port in the distal thoracic esophagus; recommend advancement 2 to 3 cm. Normal cardiomediastinal contours. Atelectasis at the lung bases. No pleural effusion or pneumothorax is seen. No acute osseous findings.
[2017-12-02] MEDS ORDERED: ACETYLCYSTEINE INJ 6000 MG/30 ML IV ONE ×3 (22:43→23:56)
[2017-12-02 22:57] LABS: ACETAMINOPHEN < 10 ug/mL (10-30)
[2017-12-02 23:07] LABS: AMORPHOUS SEDIMENT,URINE TRACE /HPF; APPEARANCE,URINE CLOUDY; BILIRUBIN,URINE NEGATIVE (NEGATIVE); GLUCOSE, URINE NEGATIVE (NEGATIVE); KETONES,URINE NEGATIVE (NEGATIVE); LEUKOCYTE ESTERASE,URINE NEGATIVE (NEGATIVE); NITRITE,URINE NEGATIVE (NEGATIVE); PROTEIN,URINE 100 mg/dL (NEGATIVE); URINE SPECIFIC GRAVITY 1.024; UROBILINOGEN,URINE NEGATIVE mg/dL (<2.0)
[2017-12-02 23:09] LABS: COLOR,URINE DARK YELLOW
[2017-12-02 23:14] LABS: URINE AMPHETAMINES SCREEN NEGATIVE; URINE BARBITURATES SCREEN NEGATIVE; URINE BENZODIAZEPINES SCREEN UNCONFIRMED POSITIVE; URINE COCAINE SCREEN NEGATIVE; URINE MARIJUANA (THC) SCREEN NEGATIVE; URINE METHADONE SCREEN NEGATIVE; URINE PHENCYCLIDINE SCREEN NEGATIVE
[2017-12-03 01:31] VITALS: BP 106/72
[2017-12-03] MEDS ORDERED: ACETYLCYSTEINE INJ 6000 MG/30 ML IV ONE (03:43)
--- NOTE | 2017-12-03 08:30 | EKG REPORT ---
SEVERITY:- ABNORMAL ECG - SINUS TACHYCARDIA NONSPECIFIC REPOL ABNORMALITY, DIFFUSE LEADS, NEW , COMPARED TO 07/05/17 ekg : Confirmed by: Cory Samson MD 03-Dec-2017 08:29:47
== END 2017-12-03 00:31 | disposition short-term general hospital (02) ==
LOC: ER 20:28
PROC: 0BH17EZ Insertion of Endotracheal Airway into Trachea, Via Natural or Artificial Opening (ICD-10-PCS; principal; 2017-12-03)
PROC: 06HM33Z Insertion of Infusion Device into Right Femoral Vein, Percutaneous Approach (ICD-10-PCS; 2017-12-03)
DX: N17.9 Acute kidney failure, unspecified (principal); N18.9 Chronic kidney disease, unspecified; F19.10 Other psychoactive substance abuse, uncomplicated; A41.9 Sepsis, unspecified organism; R65.21 Severe sepsis with septic shock; R00.0 Tachycardia, unspecified; R09.02 Hypoxemia; R06.82 Tachypnea, not elsewhere classified; F17.200 Nicotine dependence, unspecified, uncomplicated; I10 Essential (primary) hypertension; J44.9 Chronic obstructive pulmonary disease, unspecified; R40.2430 Glasgow coma scale score 3-8, unspecified time
CPT/HCPCS: 93005; 94640 ×2; 99291; 99292; 96361; 51702; 96375; 96365; 36415; 87040; 82550; 83605; 80307 ×2; 85025; 80053; 81001; 84484; 82803; 71045; 94660; 93010; 31500; 36556; C1751; J3490 ×3; J3010; J2704; J0132; J7030; J7120; J3370; J7620; J0692

== ENCOUNTER 2018-01-07 20:08 | Emergency (ER) | payer MEDICAID ==
[2018-01-07 21:47] LABS: ABSOLUTE EOSINOPHILS # (AUTO) 0.2 10^3/uL (0.0-0.6); ABSOLUTE LYMPHOCYTES (AUTO) 2.3 10^3/uL (0.5-4.7); ABSOLUTE MONOCYTES (AUTO) 0.6 10^3/uL (0.1-1.4); ABSOLUTE NEUT (AUTO) 7.9 10^3/uL (1.7-8.2); BASOPHILS % (AUTO) 0.3 % (0-2); EOSINOPHILS % (AUTO) 2.1 % (0-6); MEAN CORPUSCULAR HEMOGLOBIN 27.9 pg (27.0-33.4); MEAN CORPUSCULAR HGB CONC 32.4 g/dL (32.0-36.0); MEAN CORPUSCULAR VOLUME 86 fl (80-97); MONOCYTES % (AUTO) 5.8 % (3-13); PLATELET COUNT 241 10^3/uL (150-450); RED BLOOD COUNT 2.68 10^6/uL (3.72-5.28); RED CELL DISTRIBUTION WIDTH 17.4 % (11.5-14.0); SEGMENTED NEUTROPHILS % (AUTO) 70.8 % (42-78); TOTAL CELLS COUNTED % (AUTO) 100 %; WHITE BLOOD COUNT 11.2 10^3/uL (4.0-10.5)
[2018-01-07 21:52] LABS: HEMOGLOBIN 7.5 g/dL (12.0-15.5)
[2018-01-07 22:06] LABS: ALANINE AMINOTRANSFERASE 20 U/L (9-52); ALKALINE PHOSPHATASE 98 U/L (38-126); ANION GAP 11 (5-19); ASPARTATE AMINO TRANSFERASE 18 U/L (14-36); BILIRUBIN,DIRECT 0.3 mg/dL (0.0-0.4); BILIRUBIN,TOTAL 0.5 mg/dL (0.2-1.3); BLOOD UREA NITROGEN 36 mg/dL (7-20); CALCIUM 8.4 mg/dL (8.4-10.2); CARBON DIOXIDE 25 mmol/L (22-30); CHLORIDE 101 mmol/L (98-107); GLUCOSE 127 mg/dL (75-110); POTASSIUM 4.9 mmol/L (3.6-5.0); SODIUM 136.9 mmol/L (137-145); TOTAL PROTEIN 6.4 g/dL (6.3-8.2)
--- NOTE | 2018-01-07 22:31 | RADIOLOGY REPORT (SQ) ---
XR CHEST 1 VIEW HISTORY: low SPO2. COMPARISON: 12/02/2017 FINDINGS/IMPRESSION: Normal cardiomediastinal silhouette. Lungs are clear. No pleural effusion or pneumothorax is seen. No acute osseous findings.
[2018-01-07] MEDS ORDERED: NORMAL SALINE 250 ML IV PRN ×2 (23:10)
[2018-01-08] MEDS ORDERED: HYDROCODONE/ACETAMINOPHEN 5-325 MG TABLET PO ONE (00:05)
--- NOTE | 2018-01-08 00:53 | ER Document Report ---
ED General - General Chief Complaint: Back Pain Stated Complaint: BACK PAIN, NO INJURY Time Seen by Provider: 01/07/18 20:18 Notes: Pt. is a 57 y/o female presenting to the ED with daughter c/o being cold. Stated that the beginning of November the Pt. presented to the ED and was transferred to [facility] for Polysubstance abuse, Septic shock and Respiratory distress. Stated that since that time has had a CVA and has lost use of her right leg. Stated that the Pt. also developed an ulcer to her right buttocks that is currently being treated by wound care clinic through [facility]. Daughter stated that she wants the Pt. to have "stronger drugs" and that she is in pain. In reviewing past charts it was shown that at this facility last Hgb and Hct were 12.2 and 38.6 respectively on 12/02/2017. Per family in the room while in [facility] the pt. had a Hbg of 6.9 and was transfused one unit of blood. Family is unsure why the pts Hgb was low and denies any Iron supplements or blood transfusions in the past. Patient denies chest pain, shortness of breath, nausea, vomiting, diarrhea, abdominal pain, dysuria. Paperwork from [facility] stated the pts Hgb was 8.2 Hct 24.9 on 10/2017, no MCV documented. Patient is alert and oriented x4. Only asks if she can have her pain medication. Daughter is very adamant that patient gets pain medication. According to documentation sent from nursing facility patient got [place] 5/325's at 1700 and then 650 mg of Tylenol at 1800. Again according to nursing facilities documentation this is his normal regimen of pain medication. Past medical history: Hypertension, AAA, anxiety, renal failure, hyperlipidemia , anemia of chronic disease Medications: Paxil, gabapentin, lisinopril, Remeron, Zyprexa, [place], Tylenol Allergies: None TRAVEL OUTSIDE OF THE [place] IN LAST 30 DAYS: No - Related Data Allergies/Adverse Reactions: No Known Allergies Allergy (Verified 07/05/17 17:02) Past Medical History - General Information source: Patient, Relative - Social History Smoking Status: Unknown if Ever Smoked Lives with: Intermediate Family History: Reviewed & Not Pertinent, Hypertension Patient has suicidal ideation: No Patient has homicidal ideation: No - Past Medical History Cardiac Medical History: Reports: Hx Hypercholesterolemia, Hx Hypertension Pulmonary Medical History: Reports: Hx Bronchitis, Hx COPD, Hx Pneumonia Renal/ Medical History: Denies: Hx Peritoneal Dialysis Musculoskeletal Medical History: Reports Hx Arthritis Psychiatric Medical History: Reports: Hx Depression Past Surgical History: Reports: Hx Cholecystectomy, Hx Hysterectomy, Hx Tubal Ligation - Immunizations Hx Diphtheria, Pertussis, Tetanus Vaccination: Yes Hx Pneumococcal Vaccination: 01/29/15 Review of Systems - Review of Systems Constitutional: See HPI EENT: See HPI Cardiovascular: See HPI Respiratory: See HPI Gastrointestinal: See HPI Genitourinary: See HPI Female Genitourinary: No symptoms reported Musculoskeletal: See HPI Skin: See HPI Hematologic/Lymphatic: See HPI Neurological/Psychological: See HPI Physical Exam - Vital signs Vitals: Temp Pulse Resp BP Pulse Ox 99.3 F 94 19 102/53 L 94 01/07/18 20:26 01/07/18 20:26 01/07/18 20:26 01/07/18 20:26 01/07/18 20:26 - Notes Notes: GENERAL: Alert, interacts well. No acute distress. HEAD: Normocephalic, atraumatic. EYES: Pupils equal, round, and reactive to light. Extraocular movements intact. ENT: Oral mucosa moist, tongue midline. NECK: Full range of motion. Supple. Trachea midline. LUNGS: Clear to auscultation bilaterally, no wheezes, rales, or rhonchi. No respiratory distress. HEART: Regular rate and rhythm. No murmur ABDOMEN: Soft, non-tender. Non-distended. Bowel sounds present in all 4 quadrants. Adult diaper in place. 8cm x8cm Stage 3 ulcer right buttocks near sacrum. No surrounding tissue cellulitis. EXTREMITIES: Moves BL UE +PMS, slight weakness right arm, stated normal for Pt. since CVA. Pt. can not move right leg, again normal since CVA. No edema, normal radial and dorsalis pedis pulses bilaterally. No cyanosis. BACK: no cervical, thoracic, lumbar midline tenderness. NEUROLOGICAL: Alert and oriented x3. Normal speech. cranial nerves II through XII grossly intact PSYCH: Normal affect, normal mood. SKIN: Warm, dry, normal turgor. Course - Re-evaluation Re-evalutation: Discussed case with Dr. Terrazas and Hbg Hct levels in the ED. Dr. Terrazas recommends 1 unit of blood to be transfused. Pts. chart stated she has anemia of chronic disease. Her current MCV 86 with no change in prior visits to ED. Pt. also not on any iron or folate replacements. Current sacral ulcer can not heal with Pts in an anemic state so an ED blood transfusion is discussed with the Pt and family. They agree that is the best course. Discussed close f/u with Dr. Calero at Nursing Facility. After transfusion Pt. stated she is no longer cold. Vitals WNL entire stay. Stated she wants her pain medications. Stated facility will give pain medications when she returns. Pt. then fell asleep in NAD. Labs show no signs of leukocytosis, no redness or induration around sacral ulcer. No signs of cellulitis at this time. Again discussed close follow-up with patient and daughter with wound care clinic. Return precautions given. - Vital Signs Vital signs: Temp Pulse Resp BP Pulse Ox 98.8 F 94 13 130/73 H 96 01/08/18 06:15 01/07/18 20:26 01/08/18 07:30 01/08/18 07:30 01/08/18 07:30 - Laboratory Result Diagrams: 01/07/18 21:28 01/07/18 21:28 Laboratory results interpreted by me: 01/07/18 01/07/18 01/08/18 21:28 21:28 00:17 WBC 11.2 H RBC 2.68 L Hgb 7.5 L Hct 23.0 L RDW 17.4 H Sodium 136.9 L BUN 36 H Creatinine 1.65 H Est GFR ( Amer) 39 L Est GFR (Non-Af Amer) 32 L Glucose 127 H Albumin 3.0 L Crossmatch See Detail Discharge - Discharge Clinical Impression: Anemia Qualifiers: Anemia type: unspecified type Qualified Code(s): D64.9 - Anemia, unspecified Sacral decubitus ulcer Qualifiers: Pressure injury stage: unspecified pressure injury stage Qualified Code(s): L89.159 - Pressure ulcer of sacral region, unspecified stage Condition: Stable Disposition: SNF-Other Additional Instructions: As we discussed you have been seen and treated in the emergency department for anemia. This means that your red blood cells which carry oxygen were low. You have been transfused with 1 unit of blood. You must follow-up with Dr. Calero at the snf facility upon your return. Please return to the emergency department should you have any respiratory distress, chest pain, or any other concerning symptoms. Referrals: LETA PRIEST, [Primary Care Provider] - Follow up as needed
[2018-01-08] MEDS ORDERED: ACETAMINOPHEN 325 MG TABLET PO ONE (02:02)
[2018-01-08 07:34] VITALS: BP 130/73
== END 2018-01-08 07:49 ==
LOC: ER 20:08
DX: L89.159 Pressure ulcer of sacral region, unspecified stage (principal); D64.9 Anemia, unspecified; M54.9 Dorsalgia, unspecified; F19.10 Other psychoactive substance abuse, uncomplicated; R06.03 Acute respiratory distress; I10 Essential (primary) hypertension; J44.9 Chronic obstructive pulmonary disease, unspecified
CPT/HCPCS: 99285; 86900; 86901; 36415; 36430; 86870; 86850; 86922; 85025; 82272; 80053; 86920; 86902; 71045; P9016; J3490

== ENCOUNTER 2018-01-24 15:59 | Inpatient (IN) | payer MEDICAID ==
[2018-01-24] MEDS ORDERED: FENTANYL CITRATE INJ/PF 100 MCG/2 ML AMPUL IV ONE ×3 (16:49→20:43)
[2018-01-24] MEDS ORDERED: NORMAL SALINE 1000 ML 1,000 ML IV ONE (16:49)
--- NOTE | 2018-01-24 16:54 | ER Document Report ---
ED General - General Chief Complaint: Blood Pressure Problem Stated Complaint: WEAKNESS Time Seen by Provider: 01/24/18 16:19 Mode of Arrival: Medic Information source: Patient, Relative, Emergency Med Personnel, PENDING SALE TO [facility] Records Notes: 57-year-old female with hypertension, hyperlipidemia, COPD, renal insufficiency , recent CVA in November 2017 presents via EMS from her pain management physician's office after being found to be hypotensive. EMS reports a heart rate of 88/58. Patient states that she has been in the [facility] after sustaining her stroke. She is nonambulatory. She states during those episodes of low blood pressure she was not dizzy, lightheaded, experiencing a headache, nausea vomiting chest pain, shortness of breath. She has no complaints at this time except for back pain which is chronic for her. Patient did take pain medication and blood pressure medication prior to her visit at pain management this morning. Upon arrival here patient's blood pressure is 100/65 without intervention. Patient stroke left her with right- sided upper extremity weakness and no use of her right leg. TRAVEL OUTSIDE OF THE [place] IN LAST 30 DAYS: No - HPI Onset: Just prior to arrival Quality of pain: Throbbing Severity: Moderate - Chronic back pain Associated symptoms: denies: Chest pain, Nonproductive cough, Productive cough, Fever, Leg swelling, Nausea, Vomiting, Shortness of breath, Weakness Exacerbated by: Denies Relieved by: Denies Similar symptoms previously: No Recently seen / treated by doctor: Yes - Related Data Allergies/Adverse Reactions: No Known Allergies Allergy (Verified 07/05/17 17:02) Past Medical History - General Information source: Patient, Relative, PENDING SALE TO [facility] Records - Social History Smoking Status: Former Smoker Frequency of alcohol use: None Drug Abuse: None Lives with: Care Home Family History: Reviewed & Not Pertinent, Hypertension Patient has suicidal ideation: No Patient has homicidal ideation: No - Past Medical History Cardiac Medical History: Reports: Hx Hypercholesterolemia, Hx Hypertension Pulmonary Medical History: Reports: Hx Bronchitis, Hx COPD, Hx Pneumonia Renal/ Medical History: Denies: Hx Peritoneal Dialysis Musculoskeletal Medical History: Reports Hx Arthritis Psychiatric Medical History: Reports: Hx Depression Past Surgical History: Reports: Hx Cholecystectomy, Hx Hysterectomy, Hx Tubal Ligation - Immunizations Hx Diphtheria, Pertussis, Tetanus Vaccination: Yes Hx Pneumococcal Vaccination: 01/29/15 Review of Systems - Review of Systems Notes: REVIEW OF SYSTEMS: CONSTITUTIONAL : Denies fever, chills, or sweats. Denies recent illness. Denies weight loss, recent hospitalizations. EENT: Denies visual changes, eye pain. Denies sore throat, oral lesions, difficulty swallowing. CARDIOVASCULAR: Denies chest pain. Denies palpitations. Denies lower extremity edema. RESPIRATORY: Denies cough. Denies shortness of breath, wheezing. GASTROINTESTINAL: Denies abdominal pain or distention. Denies nausea, vomiting , or diarrhea. Denies blood in vomitus, stools, or per rectum. Denies black, tarry stools. Denies constipation. GENITOURINARY: Denies difficulty urinating, painful urination, frequency, blood in urine, or vaginal discharge. MUSCULOSKELETAL: Denies neck pain or stiffness. Denies joint pain or swelling. SKIN: + sacral wound HEMATOLOGIC : Denies easy bruising or bleeding. LYMPHATIC: Denies swollen glands. NEUROLOGICAL: Denies confusion or altered mental status. Denies loss of consciousness. Denies dizziness or lightheadedness. Denies headache. . Denies problems difficulty with ambulation, slurred speech. Denies sensory loss , numbness, or tingling. Denies seizures. PSYCHIATRIC: Denies anxiety or stress. Denies depression, suicidal ideation, or homicidal ideation. Denies visual or auditory hallucinations. Physical Exam - Vital signs Vitals: Temp Pulse Resp BP Pulse Ox 98.3 F 89 16 100/65 98 01/24/18 16:02 01/24/18 16:02 01/24/18 16:02 01/24/18 16:02 01/24/18 16:02 - Notes Notes: PHYSICAL EXAMINATION: GENERAL: Well-appearing, well-nourished and in no acute distress. HEAD: Atraumatic, normocephalic. EYES: Pupils equal round and reactive to light, extraocular movements intact, conjunctiva are normal. ENT: Nares patent, oropharynx clear without exudates. Moist mucous membranes. NECK: Normal range of motion, supple without lymphadenopathy LUNGS: Breath sounds clear to auscultation bilaterally and equal. No wheezes rales or rhonchi. HEART: Regular rate and rhythm without murmurs ABDOMEN: Soft, nontender, nondistended abdomen. No guarding, no rebound. No masses appreciated. Female : Sacral wound with new bandage dated 01/23/2018 Musculoskeletal: Normal range of motion, no pitting or edema. No cyanosis. NEUROLOGICAL: Cranial nerves grossly intact. Normal speech, Normal sensory,. No movement of right lower extremity PSYCH: Tearful SKIN: Warm, Dry, normal turgor, no rashes or lesions noted. Course - Re-evaluation Re-evalutation: Laboratory 01/24/18 01/24/18 01/24/18 18:45 18:45 19:24 WBC 9.3 RBC 3.41 L Hgb 9.5 L Hct 29.2 L MCV 86 MCH 28.0 MCHC 32.7 RDW 17.5 H Plt Count 294 Seg Neutrophils % 48.3 Lymphocytes % 37.9 Monocytes % 9.0 Eosinophils % 4.2 Basophils % 0.6 Absolute Neutrophils 4.5 Absolute Lymphocytes 3.5 Absolute Monocytes 0.8 Absolute Eosinophils 0.4 Absolute Basophils 0.1 Sodium 141.9 Potassium 5.8 H Chloride 105 Carbon Dioxide 25 Anion Gap 12 BUN 40 H Creatinine 1.33 H Est GFR ( Amer) 49 L Est GFR (Non-Af Amer) 41 L Glucose 87 Calcium 9.7 Urine Color STRAW Urine Appearance SLIGHTLY-CLOUDY Urine pH 5.0 Ur Specific Wiley 1.015 Urine Protein 30 H Urine Glucose (UA) NEGATIVE Urine Ketones NEGATIVE Urine Blood MODERATE H Urine Nitrite NEGATIVE Urine Bilirubin NEGATIVE Urine Urobilinogen NEGATIVE Ur Leukocyte Esterase LARGE H Urine WBC (Auto) 138 Urine RBC (Auto) 53 Urine Bacteria (Auto) 1+ Urine WBC Clumps MANY Squamous Epi Cells Auto 1 Urine Mucus (Auto) RARE Urine Ascorbic Acid NEGATIVE 01/25/18 00:16 57-year-old female with hypertension, hyperlipidemia, COPD, renal insufficiency , recent CVA in November 2017 presents via EMS from her pain management physician's office after being found to be hypotensive. EMS reports a heart rate of 88/58. Patient states that she has been in the [facility] after a stroke in November which left her with right-sided deficits and inability to ambulate. She states during those episodes of low blood pressure she was not dizzy, lightheaded, experiencing a headache, nausea vomiting chest pain, shortness of breath. She has no complaints at this time except for back pain which is chronic for her. Patient did take pain medication and blood pressure medication prior to her visit at pain management this morning. Upon arrival here patient's blood pressure is 100/65 without intervention. Upon arrival vital signs stable. Patient does not appear toxic, she does appear mildly dehydrated. Exam is significant for inability to move her right lower extremity and a large stage IV sacral decubitus ulcer. CBC is without leukocytosis or anemia. CMP shows a potassium of 5.8. No EKG changes at this time. Urinalysis consistent with urinary tract infection. Patient did receive IV fluids, ceftriaxone. Because of the patient's persistent diarrhea her sacral wound bandage was changed. Patient will be admitted to the hospitalist 01/25/18 13:17 01/25/18 13:19 - Vital Signs Vital signs: Temp Pulse Resp BP Pulse Ox 98.7 F 78 16 118/50 L 92 01/25/18 11:37 01/25/18 11:37 01/25/18 11:37 01/25/18 11:37 01/25/18 11:37 - Laboratory Result Diagrams: 01/25/18 04:56 01/25/18 04:56 Laboratory results interpreted by me: 01/24/18 01/24/18 01/24/18 18:45 18:45 19:24 RBC 3.41 L Hgb 9.5 L Hct 29.2 L RDW 17.5 H Potassium 5.8 H BUN 40 H Creatinine 1.33 H Est GFR ( Amer) 49 L Est GFR (Non-Af Amer) 41 L Urine Protein 30 H Urine Blood MODERATE H Ur Leukocyte Esterase LARGE H - Diagnostic Test Radiology reviewed: Image reviewed, Reports reviewed - EKG Interpretation by Me EKG shows normal: Sinus rhythm Rate: Normal Rhythm: NSR When compared to previous EKG there are: No significant change Discharge - Discharge Clinical Impression: Hyperkalemia Urinary tract infection Qualifiers: Urinary tract infection type: site unspecified Hematuria presence: with hematuria Qualified Code(s): N39.0 - Urinary tract infection, site not specified Decubitus ulcer of sacral region Qualifiers: Pressure injury stage: unspecified pressure injury stage Qualified Code(s): L89.159 - Pressure ulcer of sacral region, unspecified stage Condition: Good Disposition: ADMITTED OBSERVATION Admitting Provider: Hospitalist Unit Admitted: Medical Floor
[2018-01-24 18:57] LABS: ABSOLUTE BASOPHILS # (AUTO) 0.1 10^3/uL (0.0-0.2); ABSOLUTE EOSINOPHILS # (AUTO) 0.4 10^3/uL (0.0-0.6); ABSOLUTE LYMPHOCYTES (AUTO) 3.5 10^3/uL (0.5-4.7); ABSOLUTE MONOCYTES (AUTO) 0.8 10^3/uL (0.1-1.4); ABSOLUTE NEUT (AUTO) 4.5 10^3/uL (1.7-8.2); BASOPHILS % (AUTO) 0.6 % (0-2); EOSINOPHILS % (AUTO) 4.2 % (0-6); HEMATOCRIT 29.2 % (36.0-47.0); HEMOGLOBIN 9.5 g/dL (12.0-15.5); LYMPHOCYTES % (AUTO) 37.9 % (13-45); MEAN CORPUSCULAR HGB CONC 32.7 g/dL (32.0-36.0); MEAN CORPUSCULAR VOLUME 86 fl (80-97); PLATELET COUNT 294 10^3/uL (150-450); RED BLOOD COUNT 3.41 10^6/uL (3.72-5.28); RED CELL DISTRIBUTION WIDTH 17.5 % (11.5-14.0); SEGMENTED NEUTROPHILS % (AUTO) 48.3 % (42-78); TOTAL CELLS COUNTED % (AUTO) 100 %; WHITE BLOOD COUNT 9.3 10^3/uL (4.0-10.5)
[2018-01-24 19:16] LABS: ANION GAP 12 (5-19); BLOOD UREA NITROGEN 40 mg/dL (7-20); CALCIUM 9.7 mg/dL (8.4-10.2); CARBON DIOXIDE 25 mmol/L (22-30); CHLORIDE 105 mmol/L (98-107); GLUCOSE 87 mg/dL (75-110); POTASSIUM 5.8 mmol/L (3.6-5.0); SODIUM 141.9 mmol/L (137-145)
--- NOTE | 2018-01-24 19:19 | EKG REPORT ---
SEVERITY:- NORMAL ECG - SINUS RHYTHM : Confirmed by: Chasity Welch MD 24-Jan-2018 19:17:43
[2018-01-24 19:42] LABS: APPEARANCE,URINE SLIGHTLY-CLOUDY; BILIRUBIN,URINE NEGATIVE (NEGATIVE); COLOR,URINE STRAW; GLUCOSE, URINE NEGATIVE (NEGATIVE); KETONES,URINE NEGATIVE (NEGATIVE); LEUKOCYTE ESTERASE,URINE LARGE (NEGATIVE); NITRITE,URINE NEGATIVE (NEGATIVE); PROTEIN,URINE 30 mg/dL (NEGATIVE); URINE SPECIFIC GRAVITY 1.015; UROBILINOGEN,URINE NEGATIVE mg/dL (<2.0)
[2018-01-24] MEDS ORDERED: INSULIN REG, HUMAN 100 UNIT/ML 3 ML VIAL (PYX) IV ONE (20:01)
[2018-01-24] MEDS ORDERED: CALCIUM GLUCONATE 1000 MG/10 ML INJ IV ONE (20:01)
[2018-01-24] MEDS ORDERED: CEFTRIAXONE 1 GM/D5W RTU 1 GM/50 ML RTUPB IV ONE (20:01)
[2018-01-24] MEDS ORDERED: FUROSEMIDE INJ/PF 20 MG/2 ML SDV IV ONE (20:02)
[2018-01-24] MEDS ORDERED: DEXTROSE 50%-WATER 25 GM/50 ML DISP.SYRIN IV ONE (20:02)
[2018-01-24] MEDS ORDERED: ALBUTEROL SULFATE 0.083% NEB 2.5 MG/3 ML AMPUL NEB ONE (20:03)
[2018-01-24] MEDS ORDERED: PROMETHAZINE HCL 25 MG TABLET PO PRN (22:17)
[2018-01-24] MEDS ORDERED: MAG HYDROX/AL HYDROX/SIMETH SUSP 30 ML UDCUP PO PRN (22:17)
[2018-01-24] MEDS ORDERED: TEMAZEPAM 15 MG CAPSULE PO PRN (22:17)
[2018-01-24] MEDS ORDERED: IPRATROPIUM/ALBUTEROL 0.5-2.5 MG/3 ML AMPUL NEB PRN (22:17)
[2018-01-24] MEDS ORDERED: PROMETHAZINE HCL INJ 25 MG/1 ML VIAL IV PRN (22:17)
[2018-01-24] MEDS ORDERED: ACETAMINOPHEN 325 MG TABLET PO PRN (22:17)
[2018-01-24] MEDS ORDERED: ZOLPIDEM TARTRATE 5 MG TABLET PO PRN (23:28)
[2018-01-24] MEDS ORDERED: ALBUTEROL SULFATE HFA (90 MCG/PUFF) 200 PUFF/8.5 GM MDI IH PRN (23:28)
--- NOTE | 2018-01-24 23:35 | PDOC H&P ---
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 Comes to the emergency department as she states she has been in the [facility] for rehabilitation after sustaining a stroke, and doing vital signs she was found with a blood pressure of 80s over 50s, the patient tells me that she was not symptomatic and one hour before she took 1 of her blood pressure medication and 1 of her OxyContin. Patient's only complaint is her severe lower back pain likely secondary to her stage IV sacral decubitus ulcer for which she started following in the wound clinic. Upon arrival to the emergency department her blood pressure was 100/65 and 20 went to visit was 110 over 70s. #3 show potassium of 5.8 with negative EKG changes, urinalysis positive for UTI. Patient tells me that she does not take much fluids during the day. Patient was started on IV fluids. [place] patient needs to stay overnight to correct laboratory abnormalities and given IV antibiotics. Past Medical History Cardiac Medical History: Reports: Hyperlipidema, Hypertension Pulmonary Medical History: Reports: Bronchitis, Chronic Obstructive Pulmonary Disease (COPD), Pneumonia Musculoskeltal Medical History: Reports: Arthritis Skin Medical History: Reports: Other - Stage IV sacral decubitus ulcer Psychiatric Medical History: Reports: Depression Past Surgical History Past Surgical History: Reports: Cholecystectomy, Hysterectomy, Tubal Ligation Social History Lives with: Alf Smoking Status: Former Smoker Frequency of Alcohol Use: None Hx Recreational Drug Use: No Drugs: Marijuana Hx Prescription Drug Abuse: No - Advance Directive Resuscitation Status: Full Code Family History Family History: Reviewed & Not Pertinent, Hypertension Parental Family History Reviewed: Yes - As above Children Family History Reviewed: NA Sibling(s) Family History Reviewed.: NA Medication/Allergy Home Medications: Albuterol Sulfate [Proair HFA Inhalation Aerosol 8.5 gm MDI] 2 puff IH Q6HP PRN 01/24/18 Alprazolam [Xanax] 1 mg PO Q6HP PRN 01/24/18 Atorvastatin Calcium [Lipitor 40 mg Tablet] 40 mg PO DAILY 01/24/18 Atorvastatin Calcium [Lipitor 40 mg Tablet] 40 mg PO DAILY 01/24/18 Dextroamphetamine/Amphetamine [Dextroamp-Amphetamin 30 mg Tab] 30 mg PO TID@0700 ,1400,1600 01/24/18 Gabapentin [Neurontin] 600 mg PO Q6 01/24/18 Lisinopril [Prinivil 10 mg Tablet] 10 mg PO DAILY 01/24/18 Mirtazapine [Remeron 15 mg Tablet] 7.5 mg PO QHS 01/24/18 Olanzapine [Zyprexa] 10 mg PO DAILY 01/24/18 Oxycodone HCl/Acetaminophen [Endocet 10-325 mg Tablet] 1 tab PO Q8HP PRN Paroxetine HCl [Paxil 20 mg Tablet] 20 mg PO DAILY 01/24/18 Zolpidem Tartrate [Ambien] 10 mg PO HSP PRN 01/24/18 Allergies/Adverse Reactions: No Known Allergies Allergy (Verified 07/05/17 17:02) Review of Systems Review of Systems: As outlined in the HPI, others negative Physical Exam Vital Signs: Temp Pulse Resp BP Pulse Ox 97.5 F 85 16 121/65 94 01/24/18 22:00 01/24/18 22:00 01/24/18 22:00 01/24/18 22:00 01/24/18 22:00 Additional comments: General appearance: Well-developed, morbid obesity, alert and cooperative, and appears to be in no acute distress Head: Normocephalic Eyes: PEERL, EOMI, vision is grossly intact. Ears: External auditory canal and tympanic membranes clear, hearing grossly intact. Nose: No nasal discharge. Throat: Oral cavity and pharynx dry l. No inflammation, swelling, exudate or lesions. Neck: Neck supple, nontender without lymphadenopathy, masses or thyromegaly. Cardiac: Normal S1 and S2. No S3, S4 or murmurs. Rhythm is regular. There is no peripheral edema, cyanosis or pallor. Extremities are warm and well perfused. Capillary refill is less than 2 seconds. No carotid bruits. Lungs: Clear to auscultation and percussion without rales, rhonchi, wheezing or diminished breath sounds. Not using accessory muscles. Abdomen: Positive bowel sounds. Soft. Nondistended, nontender. No guarding or rebound. No masses. Extremities: No significant deformity or joint abnormality. No edema. Peripheral pulses intact. Neurological: Cranial nergrossly intact. Strength and sensation decreased in both lower extremities Skin: Stage IV sacral decubitus ulcer, does not have bad odor or active secretions but has severe pain to palpation around the ulceration, rest of the skin warm and dry. Psychiatric: The mental examination revealed the patient was oriented to person , place, and time. The patient was able to demonstrate good judgment on recent , without hallucinations, abnormal affect or abnormal behaviors. Results Laboratory Results: 01/24/18 01/24/18 01/24/18 18:45 18:45 19:24 WBC 9.3 RBC 3.41 L Hgb 9.5 L Hct 29.2 L MCV 86 MCH 28.0 MCHC 32.7 RDW 17.5 H Plt Count 294 Seg Neutrophils % 48.3 Lymphocytes % 37.9 Monocytes % 9.0 Eosinophils % 4.2 Basophils % 0.6 Absolute Neutrophils 4.5 Absolute Lymphocytes 3.5 Absolute Monocytes 0.8 Absolute Eosinophils 0.4 Absolute Basophils 0.1 Sodium 141.9 Potassium 5.8 H Chloride 105 Carbon Dioxide 25 Anion Gap 12 BUN 40 H Creatinine 1.33 H Est GFR ( Amer) 49 L Est GFR (Non-Af Amer) 41 L Glucose 87 Calcium 9.7 Urine Color STRAW Urine Appearance SLIGHTLY-CLOUDY Urine pH 5.0 Ur Specific [place] 1.015 Urine Protein 30 H Urine Glucose (UA) NEGATIVE Urine Ketones NEGATIVE Urine Blood MODERATE H Urine Nitrite NEGATIVE Urine Bilirubin NEGATIVE Urine Urobilinogen NEGATIVE Ur Leukocyte Esterase LARGE H Urine WBC (Auto) 138 Urine RBC (Auto) 53 Urine Bacteria (Auto) 1+ Urine WBC Clumps MANY Squamous Epi Cells Auto 1 Urine Mucus (Auto) RARE Urine Ascorbic Acid NEGATIVE Assessment & Plan - Diagnosis (1) Hyperkalemia Is this a current diagnosis for this admission?: Yes Plan: Patient comes evidently dehydrated, probably can explain her hypotension, we are given IV hydration in the emergency department and I am reassessing her serum potassium around midnight. We will give p.o. Kayexalate if necessary. (2) UTI (urinary tract infection) Qualifiers: Urinary tract infection type: site unspecified Hematuria presence: with hematuria Qualified Code(s): N39.0 - Urinary tract infection, site not specified; R31.9 - Hematuria, unspecified; R31.9 - Hematuria, unspecified Is this a current diagnosis for this admission?: Yes Plan: Urinalysis positive for UTI, patient has no complaint of urinary symptoms. Patient has been started on IV Rocephin and I will continue with this medication. Please follow blood cultures and urine cultures. (3) Sacral decubitus ulcer, stage IV Is this a current diagnosis for this admission?: Yes Plan: Apparently after her stroke in November patient has become wheelchair-bound and developed a large sacral decubitus ulcer stage IV, does not look infected to me however I am asking general surgery for evaluation and further recommendations. Patient tells me that she is started following with the wound clinic a couple of weeks ago. She has severe back pain so we will go ahead and place a CT of the lumbar spine to rule out osteomyelitis. IV and p.o. pain medication. Wound culture from the sacral area. (4) Opioid dependence Is this a current diagnosis for this admission?: Yes Plan: Patient has extensive history of opioid dependent and during her last hospitalization she was asking for IV opioids. Apparently her home opioids has been decreased by her primary care provider. I am giving low dose of IV morphine secondary to her severe back pain. (5) CKD (chronic kidney disease), stage III Is this a current diagnosis for this admission?: Yes Plan: CKD stage III, apparently stable. (6) COPD (chronic obstructive pulmonary disease) Qualifiers: COPD type: COPD with acute exacerbation Qualified Code(s): J44.1 - Chronic obstructive pulmonary disease with (acute) exacerbation Is this a current diagnosis for this admission?: Yes Plan: Currently patient does not have any respiratory symptoms, continue with her home Advair. (7) Hypertension Is this a current diagnosis for this admission?: Yes Plan: Patient has been hypotensive initially but her blood pressure has been improving after IV fluids. She is on amlodipine at home. (8) Anticoagulation goal of INR 2 to 3 Is this a current diagnosis for this admission?: Yes Plan: Patient is on Coumadin, she states that during her last admissionin at [facility] for acute stroke she was placed on this medication but she does not know why. Will order PT and PTT. - Time Time Spent: 50 to 70 Minutes - Plan Summary Plan Summary: Plan was discussed with her daughter, has been on patient, they agreed with the plan.
[2018-01-24] MEDS ORDERED: OXYCODONE HCL IR 5 MG TABLET PO PRN (23:51)
[2018-01-25] MEDS: GABAPENTIN 300 MG CAPSULE PO SCH ×4 (00:14→18:04)
[2018-01-25] MEDS: MORPHINE SULFATE 10 MG/ML INJ IV PRN ×5 (00:14→19:51)
[2018-01-25 00:16] LABS: PROTHROMBIN TIME 12.6 SEC (11.4-15.4)
[2018-01-25 00:17] LABS: PARTIAL THROMBOPLASTIN TIME 31.9 SEC (23.5-35.8)
[2018-01-25] MEDS ORDERED: PHARMACY COMMUNICATION ORDER MC NR (02:00)
[2018-01-25] MEDS: HEPARIN SOD (PORCINE) 5,000 UNIT/ML 1 ML SYRINGE SUBCUT SCH ×3 (05:15→22:10)
[2018-01-25] MEDS: NORMAL SALINE 1000 ML 1,000 ML IV PRN ×3 (05:37→18:10)
[2018-01-25 06:01] LABS: ABSOLUTE EOSINOPHILS # (AUTO) 0.4 10^3/uL (0.0-0.6); ABSOLUTE LYMPHOCYTES (AUTO) 2.9 10^3/uL (0.5-4.7); ABSOLUTE MONOCYTES (AUTO) 0.8 10^3/uL (0.1-1.4); ABSOLUTE NEUT (AUTO) 4.5 10^3/uL (1.7-8.2); BASOPHILS % (AUTO) 0.5 % (0-2); EOSINOPHILS % (AUTO) 4.1 % (0-6); HEMATOCRIT 27.8 % (36.0-47.0); HEMOGLOBIN 9.1 g/dL (12.0-15.5); LYMPHOCYTES % (AUTO) 33.8 % (13-45); MEAN CORPUSCULAR HEMOGLOBIN 28.1 pg (27.0-33.4); MEAN CORPUSCULAR HGB CONC 32.9 g/dL (32.0-36.0); MEAN CORPUSCULAR VOLUME 86 fl (80-97); MONOCYTES % (AUTO) 8.9 % (3-13); PLATELET COUNT 266 10^3/uL (150-450); RED BLOOD COUNT 3.25 10^6/uL (3.72-5.28); RED CELL DISTRIBUTION WIDTH 17.8 % (11.5-14.0); SEGMENTED NEUTROPHILS % (AUTO) 52.7 % (42-78); TOTAL CELLS COUNTED % (AUTO) 100 %; WHITE BLOOD COUNT 8.6 10^3/uL (4.0-10.5)
[2018-01-25 06:33] LABS: ANION GAP 14 (5-19); BLOOD UREA NITROGEN 39 mg/dL (7-20); CALCIUM 9.8 mg/dL (8.4-10.2); CARBON DIOXIDE 22 mmol/L (22-30); CHLORIDE 106 mmol/L (98-107); GLUCOSE 83 mg/dL (75-110); PHOSPHORUS 5.7 mg/dL (2.5-4.5); POTASSIUM 5.8 mmol/L (3.6-5.0)
[2018-01-25] MEDS ORDERED: DEXTROAMPHETAMINE PO SCH (07:00)
[2018-01-25] MEDS ORDERED: AMPHETAMINE PO SCH (07:00)
[2018-01-25] MEDS ORDERED: [UNRECOGNIZED DRUG - OTHER] PO SCH (07:00)
--- NOTE | 2018-01-25 08:13 | PDOC CONSULTATION ---
Consultation Consult Date: 01/25/18 Consult reason:: sacral decubitus ulcer History of Present Illness Admission Date/PCP: 01/24/18 20:48 LETA PRIEST DO Patient complains of: sacral decubitus pains History of Present Illness: KAREN MALDONADO is a 57 year old female with history of CVA last November with paraparesis of lower extremities as well as renal insufficiency and COPD. Was at the [facility] and known to have a stage 4 sacral decubitus ulcer [facility]. Was at her pain management physician's office and transfered to ED because of hypotension. Past Medical History Cardiac Medical History: Reports: Hyperlipidema, Hypertension Pulmonary Medical History: Reports: Bronchitis, Chronic Obstructive Pulmonary Disease (COPD), Pneumonia Musculoskeltal Medical History: Reports: Arthritis Skin Medical History: Reports: Other - Stage IV sacral decubitus ulcer Psychiatric Medical History: Reports: Depression Past Surgical History Past Surgical History: Reports: Cholecystectomy, Hysterectomy, Tubal Ligation Social History Lives with: [facility] Smoking Status: Former Smoker Frequency of Alcohol Use: None Hx Recreational Drug Use: No Drugs: Marijuana Hx Prescription Drug Abuse: No - Advance Directive Resuscitation Status: Full Code Family History Family History: Reviewed & Not Pertinent, Hypertension Parental Family History Reviewed: Yes Children Family History Reviewed: No Sibling(s) Family History Reviewed.: No Medication/Allergy Home Medications: Albuterol Sulfate [Proair HFA Inhalation Aerosol 8.5 gm MDI] 2 puff IH Q6HP PRN 01/24/18 Alprazolam [Xanax] 1 mg PO Q6HP PRN 01/24/18 Atorvastatin Calcium [Lipitor 40 mg Tablet] 40 mg PO DAILY 01/24/18 Atorvastatin Calcium [Lipitor 40 mg Tablet] 40 mg PO DAILY 01/24/18 Dextroamphetamine/Amphetamine [Dextroamp-Amphetamin 30 mg Tab] 30 mg PO TID@0700 ,1400,1600 01/24/18 Gabapentin [Neurontin] 600 mg PO Q6 01/24/18 Lisinopril [Prinivil 10 mg Tablet] 10 mg PO DAILY 01/24/18 Mirtazapine [Remeron 15 mg Tablet] 7.5 mg PO QHS 01/24/18 Olanzapine [Zyprexa] 10 mg PO DAILY 01/24/18 Oxycodone HCl/Acetaminophen [Endocet 10-325 mg Tablet] 1 tab PO Q8HP PRN Paroxetine HCl [Paxil 20 mg Tablet] 20 mg PO DAILY 01/24/18 Zolpidem Tartrate [Ambien] 10 mg PO HSP PRN 01/24/18 Allergies/Adverse Reactions: No Known Allergies Allergy (Verified 07/05/17 17:02) Review of Systems Constitutional: PRESENT: as per HPI Eyes: PRESENT: other - no visual/hearing changes Cardiovascular: PRESENT: other - no chest pains/cough Musculoskeletal: PRESENT: back pain Integumentary: PRESENT: wounds - sacral decubitus ulcer Neurological: PRESENT: paresthesias, weakness Physical Exam Vital Signs: Temp Pulse Resp BP Pulse Ox 98.6 F 89 14 135/70 H 92 01/25/18 03:52 01/25/18 03:52 01/25/18 03:52 01/25/18 03:52 01/25/18 03:52 Intake & Output 01/24/18 01/25/18 01/26/18 06:59 06:59 06:59 Intake Total 444 Balance 444 Weight 68.1 kg General appearance: PRESENT: mild distress Head exam: PRESENT: atraumatic Eye exam: PRESENT: conjunctiva pink Mouth exam: PRESENT: moist Neck exam: PRESENT: full ROM Respiratory exam: PRESENT: clear to auscultation abraham Cardiovascular exam: PRESENT: RRR Pulses: PRESENT: normal radial pulses Vascular exam: PRESENT: normal capillary refill GI/Abdominal exam: PRESENT: soft Rectal exam: PRESENT: other - sacral decubitus ulcer about 8-9 cm in diameter with minimal necrotic tissue. This appears to be down to the bone. Extremities exam: PRESENT: other - some contracture at the knees Musculoskeletal exam: PRESENT: deformity - some contractures at both knees Neurological exam: PRESENT: alert, oriented to person, oriented to place, oriented to time, oriented to situation Psychiatric exam: PRESENT: anxious Skin exam: PRESENT: normal color, warm Results Laboratory Results: 01/25/18 04:56 01/25/18 04:56 01/24/18 01/25/18 01/25/18 23:54 04:56 04:56 WBC 8.6 RBC 3.25 L Hgb 9.1 L Hct 27.8 L MCV 86 MCH 28.1 MCHC 32.9 RDW 17.8 H Plt Count 266 Seg Neutrophils % 52.7 Lymphocytes % 33.8 Monocytes % 8.9 Eosinophils % 4.1 Basophils % 0.5 Absolute Neutrophils 4.5 Absolute Lymphocytes 2.9 Absolute Monocytes 0.8 Absolute Eosinophils 0.4 Absolute Basophils 0.0 Sodium 142.0 Potassium 4.9 5.8 H Chloride 106 Carbon Dioxide 22 Anion Gap 14 BUN 39 H Creatinine 1.18 Est GFR ( Amer) 57 L Est GFR (Non-Af Amer) 47 L Glucose 83 Calcium 9.8 Phosphorus 5.7 H Magnesium 1.8 Assessment & Plan - Time Time Spent: 30 to 50 Minutes - Inpatient Certification Medical Necessity: Need for Pain Control, Risk of Complication if Not Cared For in Hospital - Plan Summary Plan Summary: Start wet to dry dressings with saline q 12 hrs Follow up at the [facility] on discharge
[2018-01-25] MEDS: OXYCODONE-ACETAMINOPHEN 5-325 MG TABLET PO PRN ×2 (08:37→18:03)
[2018-01-25] MEDS ORDERED: CEFTRIAXONE 2 GM/D5W RTU 2 GM/50 ML RTUPB IV SCH (10:00)
[2018-01-25] MEDS: ATORVASTATIN CALCIUM 40 MG TABLET PO SCH (10:33)
[2018-01-25] MEDS: SODIUM POLYSTYRENE SULFONATE 15 GM/60 ML PO SCH ×2 (10:33→22:10)
[2018-01-25] MEDS: OLANZAPINE 5 MG TABLET PO SCH (10:33)
[2018-01-25] MEDS: PAROXETINE HCL 20 MG TABLET PO SCH (10:37)
[2018-01-25] MEDS: LISINOPRIL 10 MG TABLET PO SCH (12:08)
--- NOTE | 2018-01-25 12:26 | EKG REPORT ---
SEVERITY:- NORMAL ECG - SINUS RHYTHM : Confirmed by: Chasity Welch MD 25-Jan-2018 12:25:52
--- NOTE | 2018-01-25 17:02 | PDOC PROGRESS REPORT ---
Subjective Progress Note for:: 01/25/18 Subjective:: Patient was admitted last evening. She exhibited hypotension at the prison facility. She is currently on intravenous fluids. Additionally she was found to have hyperkalemia and hyperphosphatemia. There is no serum albumin at this time and so I cannot calculate her corrected calcium level. Today the patient is complaining of constant aching in both legs. She has been bedbound with a stage IV decubitus ulcer. She has been dealing with the ulcer for at least 2 months. Reason For Visit: HYPOTENSION, HYPERKALEMIA, Hyperphosphatemia Physical Exam Vital Signs: Temp Pulse Resp BP Pulse Ox 98.0 F 80 16 116/58 L 93 01/25/18 15:22 01/25/18 15:22 01/25/18 15:22 01/25/18 15:22 01/25/18 15:22 Intake & Output 01/24/18 01/25/18 01/26/18 06:59 06:59 06:59 Intake Total 444 1355 Balance 444 1355 Weight 68.1 kg General appearance: PRESENT: mild distress, morbidly obese, well-developed, well -nourished Head exam: PRESENT: atraumatic, normocephalic Eye exam: PRESENT: conjunctiva pale, EOMI. ABSENT: scleral icterus Ear exam: PRESENT: normal external ear exam Mouth exam: PRESENT: dry mucosa Neck exam: PRESENT: full ROM. ABSENT: JVD, lymphadenopathy Respiratory exam: PRESENT: clear to auscultation abraham, symmetrical, unlabored. ABSENT: rales, rhonchi, wheezes Cardiovascular exam: PRESENT: RRR, +S1, +S2, systolic murmur Pulses: PRESENT: normal radial pulses, normal dorsalis pedis pul GI/Abdominal exam: PRESENT: normal bowel sounds, soft. ABSENT: distended, firm , tenderness Extremities exam: PRESENT: pedal edema - Trace. ABSENT: calf tenderness, tenderness Musculoskeletal exam: PRESENT: normal inspection Neurological exam: PRESENT: alert, awake, oriented to person, oriented to place , oriented to time, oriented to situation Psychiatric exam: PRESENT: appropriate affect, normal mood Skin exam: PRESENT: other - Dressing in place over stage IV decubitus ulcer sacrum Results Laboratory Results: 01/25/18 04:56 01/25/18 04:56 01/24/18 01/25/18 01/25/18 23:54 04:56 04:56 WBC 8.6 RBC 3.25 L Hgb 9.1 L Hct 27.8 L MCV 86 MCH 28.1 MCHC 32.9 RDW 17.8 H Plt Count 266 Seg Neutrophils % 52.7 Lymphocytes % 33.8 Monocytes % 8.9 Eosinophils % 4.1 Basophils % 0.5 Absolute Neutrophils 4.5 Absolute Lymphocytes 2.9 Absolute Monocytes 0.8 Absolute Eosinophils 0.4 Absolute Basophils 0.0 Sodium 142.0 Potassium 4.9 5.8 H Chloride 106 Carbon Dioxide 22 Anion Gap 14 BUN 39 H Creatinine 1.18 Est GFR ( Amer) 57 L Est GFR (Non-Af Amer) 47 L Glucose 83 Calcium 9.8 Phosphorus 5.7 H Magnesium 1.8 Assessment & Plan - Diagnosis (1) Decubitus ulcer of sacral region Qualifiers: Pressure injury stage: stage 4 Qualified Code(s): L89.154 - Pressure ulcer of sacral region, stage 4 Is this a current diagnosis for this admission?: Yes Plan: The patient has been in a prison facility for approximately 2 months. She presented with hypotension. Surgery did see the lesion. They recommended saline moist dressings. The patient does have regular visits at the wound care center as well. I have also asked for the dietitian to consult. The patient has increased protein needs because of the wound healing. She should (2) Hyperkalemia Is this a current diagnosis for this admission?: Yes Plan: The patient has underlying stage III chronic kidney disease. Her potassium and phosphorus were in fact elevated. Even with IV fluids her potassium did not change. She is currently receiving 2 doses of Kayexalate. Orders are written to recheck her electrolytes this evening as well as in the morning. (3) Hyperphosphatemia Is this a current diagnosis for this admission?: Yes Plan: The patient has an elevated phosphorus level. This has not changed with administration of IV fluids. I will start her on sevelamer 800 mg 3 times a day with meals and recheck her blood work. (4) Hypotension Qualifiers: Hypotension type: hypotension due to hypovolemia Qualified Code(s): I95.89 - Other hypotension; E86.1 - Hypovolemia; E86.1 - Hypovolemia Is this a current diagnosis for this admission?: Yes Plan: The patient's blood pressure has responded to fluids. I did increase the rate of the fluid due to her hyperphosphatemia and hyperkalemia. - Time Time Spent with patient: 25-34 minutes Medications reviewed and adjusted accordingly: Yes Anticipated discharge: Other - The patient presented from a prison facility. During this encounter she states that she refuses to return to that facility. I have asked discharge planning to see the patient.
[2018-01-25] MEDS: CEFTRIAXONE SODIUM 2,000 MG in DEXTROSE 5%-WATER 100 ML IV SCH (18:04)
[2018-01-25] MEDS: SEVELAMER HCL 800 MG TABLET PO SCH (18:04)
[2018-01-25 18:38] LABS: ALANINE AMINOTRANSFERASE 9 U/L (9-52); ALBUMIN 3.4 g/dL (3.5-5.0); ALKALINE PHOSPHATASE 84 U/L (38-126); ANION GAP 15 (5-19); ASPARTATE AMINO TRANSFERASE 16 U/L (14-36); BILIRUBIN,DIRECT 0.1 mg/dL (0.0-0.4); BILIRUBIN,TOTAL 0.3 mg/dL (0.2-1.3); BLOOD UREA NITROGEN 34 mg/dL (7-20); CALCIUM 9.5 mg/dL (8.4-10.2); CARBON DIOXIDE 22 mmol/L (22-30); CHLORIDE 106 mmol/L (98-107); GLUCOSE 113 mg/dL (75-110); SODIUM 142.8 mmol/L (137-145); TOTAL PROTEIN 7.2 g/dL (6.3-8.2)
[2018-01-25 18:59] LABS: POTASSIUM 4.5 mmol/L (3.6-5.0)
[2018-01-25] MEDS: MIRTAZAPINE 15 MG TABLET PO SCH (22:10)
[2018-01-25] MEDS: ALPRAZOLAM 0.5 MG TABLET PO PRN (22:10)
[2018-01-26] MEDS: GABAPENTIN 300 MG CAPSULE PO SCH ×5 (00:16→23:21)
[2018-01-26] MEDS: NORMAL SALINE 1000 ML 1,000 ML IV PRN ×2 (00:17→16:56)
[2018-01-26 04:55] LABS: HEMATOCRIT 25.2 % (36.0-47.0); HEMOGLOBIN 8.4 g/dL (12.0-15.5); MEAN CORPUSCULAR HEMOGLOBIN 28.6 pg (27.0-33.4); MEAN CORPUSCULAR HGB CONC 33.3 g/dL (32.0-36.0); MEAN CORPUSCULAR VOLUME 86 fl (80-97); PLATELET COUNT 234 10^3/uL (150-450); RED BLOOD COUNT 2.94 10^6/uL (3.72-5.28); RED CELL DISTRIBUTION WIDTH 17.7 % (11.5-14.0); WHITE BLOOD COUNT 7.6 10^3/uL (4.0-10.5)
[2018-01-26 05:16] LABS: ALBUMIN 3.1 g/dL (3.5-5.0); ANION GAP 13 (5-19); BLOOD UREA NITROGEN 30 mg/dL (7-20); CALCIUM 9.5 mg/dL (8.4-10.2); CARBON DIOXIDE 23 mmol/L (22-30); CHLORIDE 108 mmol/L (98-107); GLUCOSE 103 mg/dL (75-110); PHOSPHORUS 5.6 mg/dL (2.5-4.5); POTASSIUM 4.4 mmol/L (3.6-5.0); SODIUM 143.7 mmol/L (137-145)
[2018-01-26] MEDS: HEPARIN SOD (PORCINE) 5,000 UNIT/ML 1 ML SYRINGE SUBCUT SCH ×3 (06:12→23:20)
[2018-01-26] MEDS: MORPHINE SULFATE 10 MG/ML INJ IV PRN ×4 (06:12→23:21)
--- NOTE | 2018-01-26 09:05 | PDOC PROGRESS REPORT ---
Subjective Progress Note for:: 01/26/18 Subjective:: sacral pains Reason For Visit: HYPERPHOSPHATEMIA,HYPERKALEMIA Physical Exam Vital Signs: Temp Pulse Resp BP Pulse Ox 98.6 F 96 18 135/62 H 93 01/26/18 05:04 01/26/18 07:00 01/26/18 05:04 01/26/18 05:04 01/26/18 05:04 Intake & Output 01/25/18 01/26/18 01/27/18 06:59 06:59 06:59 Intake Total 2159 Balance 2159 Weight 66.3 kg Exam: Sacral decubitus ulcer looks clean and dry Will place Wound Vac Will need continued follow up at the Wound Care Center Results Laboratory Results: 01/26/18 04:30 01/26/18 04:30 01/25/18 01/26/18 01/26/18 18:06 04:30 04:30 WBC 7.6 RBC 2.94 L Hgb 8.4 L Hct 25.2 L MCV 86 MCH 28.6 MCHC 33.3 RDW 17.7 H Plt Count 234 Sodium 142.8 143.7 Potassium 4.5 D 4.4 Chloride 106 108 H Carbon Dioxide 22 23 Anion Gap 15 13 BUN 34 H 30 H Creatinine 1.05 1.02 Est GFR ( Amer) > 60 > 60 Est GFR (Non-Af Amer) 54 L 55 L Glucose 113 H 103 Calcium 9.5 9.5 Phosphorus 5.6 H Total Bilirubin 0.3 AST 16 ALT 9 Alkaline Phosphatase 84 Total Protein 7.2 Albumin 3.4 L 3.1 L
[2018-01-26] MEDS: ATORVASTATIN CALCIUM 40 MG TABLET PO SCH (10:31)
[2018-01-26] MEDS: OLANZAPINE 5 MG TABLET PO SCH (10:31)
[2018-01-26] MEDS: PAROXETINE HCL 20 MG TABLET PO SCH (10:31)
[2018-01-26] MEDS: SEVELAMER HCL 800 MG TABLET PO SCH ×3 (10:32→16:55)
[2018-01-26] MEDS: LISINOPRIL 10 MG TABLET PO SCH (10:32)
[2018-01-26] MEDS: OXYCODONE-ACETAMINOPHEN 5-325 MG TABLET PO PRN ×2 (11:48→19:40)
[2018-01-26] MEDS: CEFTRIAXONE SODIUM 2,000 MG in DEXTROSE 5%-WATER 100 ML IV SCH (16:59)
--- NOTE | 2018-01-26 17:47 | PDOC PROGRESS REPORT ---
Subjective Progress Note for:: 01/26/18 Subjective:: Patient was admitted last evening. She exhibited hypotension at the [facility] facility. She is currently on intravenous fluids. Additionally she was found to have hyperkalemia and hyperphosphatemia. There is no serum albumin at this time and so I cannot calculate her corrected calcium level. Today the patient is complaining of constant aching in both legs. She has been bedbound with a stage IV decubitus ulcer. She has been dealing with the ulcer for at least 2 months. January 26, 2018-the patient feels slightly better today but is worried about transitioning to home. Reason For Visit: Stage IV decubitus ulcer requiring VAC dressing HYPERPHOSPHATEMIA,HYPERKALEMIA Chronic kidney disease Physical Exam Vital Signs: Temp Pulse Resp BP Pulse Ox 99.1 F 94 18 109/56 L 90 L 01/26/18 15:21 01/26/18 15:21 01/26/18 15:21 01/26/18 15:21 01/26/18 15:21 Intake & Output 01/25/18 01/26/18 01/27/18 06:59 06:59 06:59 Intake Total 3159 459 Balance 3159 459 Weight 66.3 kg General appearance: PRESENT: no acute distress, cooperative, obese, well- developed Head exam: PRESENT: atraumatic, normocephalic Eye exam: PRESENT: conjunctiva pale, EOMI. ABSENT: periorbital swelling, scleral icterus Ear exam: PRESENT: normal external ear exam Mouth exam: PRESENT: moist, tongue midline. ABSENT: neck supple Neck exam: ABSENT: carotid bruit, JVD, lymphadenopathy Respiratory exam: PRESENT: clear to auscultation abraham, symmetrical, unlabored. ABSENT: rales, rhonchi, wheezes Cardiovascular exam: PRESENT: RRR, +S1, +S2, systolic murmur - 2/6 systolic murmur GI/Abdominal exam: PRESENT: normal bowel sounds, soft. ABSENT: distended, guarding, tenderness Extremities exam: ABSENT: calf tenderness, pedal edema Neurological exam: PRESENT: alert, awake, oriented to person, oriented to place , oriented to time, oriented to situation, CN II-XII grossly intact Psychiatric exam: PRESENT: appropriate affect, normal mood Skin exam: PRESENT: other - Dressing over decubitus ulcer. Results Laboratory Results: 01/26/18 04:30 01/26/18 04:30 01/25/18 01/26/18 01/26/18 18:06 04:30 04:30 WBC 7.6 RBC 2.94 L Hgb 8.4 L Hct 25.2 L MCV 86 MCH 28.6 MCHC 33.3 RDW 17.7 H Plt Count 234 Sodium 142.8 143.7 Potassium 4.5 D 4.4 Chloride 106 108 H Carbon Dioxide 22 23 Anion Gap 15 13 BUN 34 H 30 H Creatinine 1.05 1.02 Est GFR ( Amer) > 60 > 60 Est GFR (Non-Af Amer) 54 L 55 L Glucose 113 H 103 Calcium 9.5 9.5 Phosphorus 5.6 H Total Bilirubin 0.3 AST 16 ALT 9 Alkaline Phosphatase 84 Total Protein 7.2 Albumin 3.4 L 3.1 L Assessment & Plan - Diagnosis (1) Decubitus ulcer of sacral region Qualifiers: Pressure injury stage: stage 4 Qualified Code(s): L89.154 - Pressure ulcer of sacral region, stage 4 Is this a current diagnosis for this admission?: Yes Plan: The patient has been in a [facility] for approximately 2 months. She presented with hypotension. Surgery did see the lesion. They recommended saline moist dressings. The patient does have regular visits at the wound care center as well. I have also asked for the dietitian to consult. The patient has increased protein needs because of the wound healing. 01/26/2018-the patient was seen by surgery. They have ordered negative pressure therapy. A VAC dressing was applied. At this point a VAC unit for home use has not been approved. Case management is working diligently on this as well as equipment needed at home such as a hospital bed and wheelchair with offloading cushion to try and minimize direct pressure on the wound. Home health is also being arranged as her previous home health company did not have anyone able to change negative pressure dressings. (2) Hyperkalemia Is this a current diagnosis for this admission?: Yes Plan: The patient has underlying stage III chronic kidney disease. Her potassium and phosphorus were in fact elevated. Even with IV fluids her potassium did not change. She is currently receiving 2 doses of Kayexalate. Orders are written to recheck her electrolytes this evening as well as in the morning. January 26, 2018-the patient's serum potassium is improved after her 2 doses of Kayexalate. I have asked the dietitian to see the patient. She should be on a low potassium renal diet as well as her low-sodium low-fat cardiac diet. We will continue to monitor her electrolytes. (3) Hyperphosphatemia Is this a current diagnosis for this admission?: Yes Plan: The patient has an elevated phosphorus level. This has not changed with administration of IV fluids. I will start her on sevelamer 800 mg 3 times a day with meals and recheck her blood work. January 26, 2018-unfortunately with hydration alone the patient's phosphorus remains elevated. I have initiated treatment with sevelamer 800 mg 3 times a day with meals. We will need to follow her serum phosphorus level. She will also need to see nephrology as an outpatient. (4) Hypotension Qualifiers: Hypotension type: hypotension due to hypovolemia Qualified Code(s): I95.89 - Other hypotension; E86.1 - Hypovolemia; E86.1 - Hypovolemia Is this a current diagnosis for this admission?: Yes Plan: The patient's blood pressure has responded to fluids. I did increase the rate of the fluid due to her hyperphosphatemia and hyperkalemia. January 26, 2018-with IV fluids her blood pressure has improved. She has not exhibited a systolic pressure less than 100 today. We will continue her current medications and encourage oral fluids. - Time Time Spent with patient: 25-34 minutes Medications reviewed and adjusted accordingly: Yes Anticipated discharge: Home, Home with Homehealth - Plan Summary Plan Summary: At this point we are waiting for approval of the VAC unit for home use as well as her hospital bed, wheelchair with pressure relieving cushion and bedside commode. In addition her previous home health company did not have anyone certified for using negative pressure therapy and so a new home health agency will need to be secured. As soon as we confirm availability she will be able to be discharged safely.
[2018-01-26] MEDS: ALPRAZOLAM 0.5 MG TABLET PO PRN (20:35)
[2018-01-26] MEDS: MIRTAZAPINE 15 MG TABLET PO SCH (23:20)
[2018-01-27] MEDS: NORMAL SALINE 1000 ML 1,000 ML IV PRN (03:38)
[2018-01-27] MEDS: OXYCODONE-ACETAMINOPHEN 5-325 MG TABLET PO PRN (05:27)
[2018-01-27] MEDS: HEPARIN SOD (PORCINE) 5,000 UNIT/ML 1 ML SYRINGE SUBCUT SCH ×2 (05:28→14:04)
[2018-01-27] MEDS: GABAPENTIN 300 MG CAPSULE PO SCH ×2 (05:28→13:06)
--- NOTE | 2018-01-27 07:46 | OPERATIVE REPORT E ---
Operative Report NAME: KAREN MALDONADO : 1960 AGE: 57Y DATE OF SURGERY: 01/26/2018 ROOM: 409 PREOPERATIVE DIAGNOSIS: Right sacral decubitus ulcer of about 10 cm x 8 cm x about 4 cm down to the bone. POSTOPERATIVE DIAGNOSIS: Right sacral decubitus ulcer of about 10 cm x 8 cm x about 4 cm down to the bone with small areas of necrosis on the medial side. PROCEDURE DONE: Debridement of sacral decubitus ulcer. SURGEON: ALIYA SMART M.D. DESCRIPTION OF PROCEDURE: The patient was placed in the left lateral decubitus position and the ulcer prepped with Betadine. A small area of yellowish, necrotic tissue was then sharply debrided with use of scissors. Following this and after removal of necrotic tissue that could be seen, a wound VAC was then placed. DICTATING PHYSICIAN: ALIYA SMART M.D. [id number] PHY#: [id number] ID: [id number] JOB#: [id number] ACCT: [id number] cc:ALIAY SMART M.D. >
[2018-01-27] MEDS: SEVELAMER HCL 800 MG TABLET PO SCH ×2 (08:49→13:06)
[2018-01-27] MEDS: MORPHINE SULFATE 10 MG/ML INJ IV PRN ×2 (09:09→15:44)
[2018-01-27] MEDS: PAROXETINE HCL 20 MG TABLET PO SCH (09:10)
[2018-01-27] MEDS: LISINOPRIL 10 MG TABLET PO SCH (09:10)
[2018-01-27] MEDS: OLANZAPINE 5 MG TABLET PO SCH (09:11)
[2018-01-27] MEDS: ATORVASTATIN CALCIUM 40 MG TABLET PO SCH (09:11)
--- NOTE | 2018-01-27 13:27 | PDOC DISCHARGE SUMMARY ---
General - Admit/Disc Date/PCP Admission Date/Primary Care Provider: 01/25/18 16:47 LETA PRIEST, Discharge Date: 01/27/18 - Confirm delivery of DME and VAC - Discharge Diagnosis (1) Decubitus ulcer of sacral region Is this a current diagnosis for this admission?: Yes Summary: The patient was evaluated by surgery. The lesion was felt to be appropriate for negative pressure therapy. Patient will discharge to home with home health as well as continued follow-up appointments at the wound clinic. (2) Hyperkalemia Is this a current diagnosis for this admission?: Yes Summary: The patient's serum potassium improved with 2 doses of Kayexalate. She needs to maintain a renal/cardiac diet and follow-up with her primary care for blood work. I have also suggested they visit with nephrology. (3) Hyperphosphatemia Is this a current diagnosis for this admission?: Yes Summary: With aggressive IV hydration the patient's serum phosphorus did not change significantly. I have initiated treatment with sevelamer 800 mg 3 times a day. The patient does need to follow-up with nephrology for assessment. (4) Hypotension Is this a current diagnosis for this admission?: Yes Summary: The patient's blood pressure improved with initial IV fluids. In fact she has been somewhat hypertensive. Some of this I attribute to pain. She will continue her home regimen and follow-up with her primary care physician for any further medication adjustments. Nephrology may also suggest medication changes. - Additional Information Resuscitation Status: Full Code Discharge Diet: Cardiac, Other (Comments) - Renal with low sodium and low fat Discharge Activity: Activity As Tolerated, Other - Offloading in bed. Limites chair time 45 minutes three times per day Prescriptions: Sevelamer HCl [Renagel 800 mg Tablet] 800 mg PO MEALS #60 tablet Home Medications: Albuterol Sulfate [Proair HFA Inhalation Aerosol 8.5 gm MDI] 2 puff IH Q6HP PRN 01/24/18 Alprazolam [Xanax] 1 mg PO Q6HP PRN 01/24/18 Atorvastatin Calcium [Lipitor 40 mg Tablet] 40 mg PO DAILY 01/24/18 Atorvastatin Calcium [Lipitor 40 mg Tablet] 40 mg PO DAILY 01/24/18 Dextroamphetamine/Amphetamine [Dextroamp-Amphetamin 30 mg Tab] 30 mg PO TID@0700 ,1400,1600 01/24/18 Gabapentin [Neurontin] 600 mg PO Q6 01/24/18 Lisinopril [Prinivil 10 mg Tablet] 10 mg PO DAILY 01/24/18 Mirtazapine [Remeron 15 mg Tablet] 7.5 mg PO QHS 01/24/18 Olanzapine [Zyprexa] 10 mg PO DAILY 01/24/18 Oxycodone HCl/Acetaminophen [Endocet 10-325 mg Tablet] 1 tab PO Q8HP PRN Paroxetine HCl [Paxil 20 mg Tablet] 20 mg PO DAILY 01/24/18 Zolpidem Tartrate [Ambien] 10 mg PO HSP PRN 01/24/18 Carvedilol [Coreg 12.5 mg Tablet] 1 tab PO Q12 01/25/18 Isosorb Dinit/Hydralazine HCl [Bidil 20-37.5 mg Tablet] 1 tab PO Q8 01/25/18 Sevelamer HCl [Renagel 800 mg Tablet] 800 mg PO MEALS #60 tablet 01/26/18 History of Present Illness Patient complains of: Long-standing sacral decubitus ulcer. The patient has been working with wound care clinic and just finished a [facility]. She was also found to be hypotensive on admission but this has resolved. History of Present Illness: KAREN MALDONADO is a 57 year old female Hospital Course Hospital Course: The patient had a relatively unremarkable hospital course. Her hypotension cleared with IV fluids. Surgery assessed her wound and has initiated negative pressure therapy. Pain is a chronic issue with the patient. Her hyperkalemia resolved with fluids and Kayexalate. She needs to maintain a renal diet. Her hyperphosphatemia remained and so she has been started on sevelamer 800 mg 3 times a day with meals. I have asked nutrition to consult with the patient as she should be on a vitamin regimen along with increased protein for wound healing. The hospital bed, wheelchair with offloading cushion and bedside commode have been delivered to the house. Home health services have been established and the outpatient negative pressure therapy unit has been delivered to the hospital and will be exchanged for the hospital unit which stays for inpatient use. Physical Exam Vital Signs: Temp Pulse Resp BP Pulse Ox 99.1 F 88 16 137/64 H 98 01/27/18 07:32 01/27/18 11:02 01/27/18 11:02 01/27/18 07:32 01/27/18 11:02 Intake & Output 01/26/18 01/27/18 01/28/18 06:59 06:59 05:59 Intake Total 3159 2359 Balance 3159 2359 Weight 66.3 kg 83.6 kg General appearance: PRESENT: no acute distress, morbidly obese, other - I had to wake the patient up. She does not appear to be in any distress. Head exam: PRESENT: atraumatic, normocephalic Neck exam: ABSENT: carotid bruit, JVD, lymphadenopathy Respiratory exam: PRESENT: clear to auscultation abraham, symmetrical, unlabored. ABSENT: rales, rhonchi, wheezes Cardiovascular exam: PRESENT: RRR, +S1, +S2 GI/Abdominal exam: PRESENT: normal bowel sounds, soft. ABSENT: distended Neurological exam: PRESENT: other - Sleep he has noted above since I had to wake her for the encounter. Skin exam: PRESENT: other - VAC dressing on her sacral wound. Results Laboratory Results: 01/26/18 04:30 01/26/18 04:30 Qualifiers - * PATIENT BEING DISCHARGED WITH ANY OF THE FOLLOWING DIAGNOSIS: No Plan Discharge Plan: Discharge to home with the durable medical equipment ordered as above. Continue VAC therapy as well as follow-up at the wound care clinic. The patient also should follow-up with her primary care physician and establish with a webbing inspector at least for initial assessment.
--- NOTE | 2018-01-27 15:52 | PDOC PROGRESS REPORT ---
Subjective Progress Note for:: 01/27/18 Subjective:: TOLERATING vac TO SACRAL DECUB Reason For Visit: HYPERPHOSPHATEMIA,HYPERKALEMIA Physical Exam Vital Signs: Temp Pulse Resp BP Pulse Ox 98.6 F 46 L 19 101/51 L 93 01/27/18 11:02 01/27/18 14:00 01/27/18 11:02 01/27/18 11:02 01/27/18 11:02 Intake & Output 01/26/18 01/27/18 01/28/18 06:59 06:59 05:59 Intake Total 3159 2359 Balance 3159 2359 Weight 66.3 kg 83.6 kg Exam: vAC TO SACRAL DECUB IN PLACE OK to discharge with home visits and changing of VAC dressing s q 2-3 days Follow up at the [facility] Results Laboratory Results: 01/26/18 04:30 01/26/18 04:30 Assessment & Plan - Time Time Spent with patient: 15-24 minutes - Plan Summary Plan Summary: OK to discharge homewith Nurse Homevisits for changing of wound vac dressings q 2-3 days. Follow up at the Wound Care Center
[2018-01-27 17:02] VITALS: BP 110/52
--- NOTE | 2018-02-20 11:02 | OPERATIVE REPORT E ---
Operative Report NAME: KAREN MALDONADO : 1960 AGE: 57Y DATE OF SURGERY: 01/26/2018 ROOM: 409 PREOPERATIVE DIAGNOSIS: RIGHT SACRAL DECUBITUS ULCER MEASURING 10 CM X 8 CM X 4 CM DOWN TO THE BONE. POSTOPERATIVE DIAGNOSIS: RIGHT SACRAL DECUBITUS ULCER MEASURING 10 CM X 8 CM X 4 CM DOWN TO THE BONE WITH SMALL AREAS OF NECROSIS ON THE MEDIAL SIDE. PROCEDURE DONE: Sharp debridement of sacral decubitus ulcer. SURGEON: ALIYA SMART M.D. DESCRIPTION OF PROCEDURE: The patient was placed in the left lateral decubitus position and the ulcer prepped with Betadine. Small areas of yellowish, necrotic tissue were then sharply debrided with use of scissors. This was an excisional debridement. The debridement was done excising areas of necrotic tissue down to the bone. Necrotic tissue along the subcutaneous area, muscle, and down to the bone. After removal of necrotic tissue, a wound-VAC was then placed. DICTATING PHYSICIAN: ALIYA SMART M.D. [id number] PHY#: [id number] ID: [id number] JOB#: [id number] ACCT: [id number] cc:ALIYA SMART M.D. >
== END 2018-01-27 17:02 | disposition home health service (06) | DRG 628 ==
LOC: ER 15:59 → EH 20:48 → 4N 22:58 → OBSVTOIN 01-25 16:47 → 4N 01-26 18:15
PROVIDERS: ADMIT Internal Medicine; ATTEND Internal Medicine
PROC: 0QB10ZZ Excision of Sacrum, Open Approach (ICD-10-PCS; principal; 2018-01-26)
DX: E87.5 Hyperkalemia (principal); L89.154 Pressure ulcer of sacral region, stage 4; N39.0 Urinary tract infection, site not specified; F11.20 Opioid dependence, uncomplicated; I96 Gangrene, not elsewhere classified; E83.39 Other disorders of phosphorus metabolism; J44.9 Chronic obstructive pulmonary disease, unspecified; I12.9 Hypertensive chronic kidney disease with stage 1 through stage 4 chronic kidney disease, or unspecified chronic kidney disease; N18.3 Chronic kidney disease, stage 3 (moderate); E78.5 Hyperlipidemia, unspecified; E86.0 Dehydration; I69.365 Other paralytic syndrome following cerebral infarction, bilateral; F32.9 Major depressive disorder, single episode, unspecified; M19.90 Unspecified osteoarthritis, unspecified site; I95.9 Hypotension, unspecified; E86.1 Hypovolemia; G89.29 Other chronic pain; Z90.710 Acquired absence of both cervix and uterus; Z90.49 Acquired absence of other specified parts of digestive tract; Z87.891 Personal history of nicotine dependence; Z98.51 Tubal ligation status; Z82.49 Family history of ischemic heart disease and other diseases of the circulatory system; Z79.51 Long term (current) use of inhaled steroids; Z79.899 Other long term (current) drug therapy; Z99.3 Dependence on wheelchair
CPT/HCPCS: 36415; 51701; 80048; 80069; 80076; 81001; 83735; 84100; 84132; 85025; 85027; 85610; 85730; 87040; 93005; 93010; 96361; 96365; 96375; 96376; 99285; G0378; J0696; J1644; J2270; J3010; J3490; J7030

== ENCOUNTER 2018-02-22 12:08 | Emergency (ER) | payer MEDICAID ==
[2018-02-22] MEDS ORDERED: ONDANSETRON HCL INJ/PF 4 MG/2 ML SDV IV ONE (12:39)
[2018-02-22] MEDS ORDERED: NORMAL SALINE 1000 ML 1,000 ML IV ONE ×2 (12:39→14:25)
[2018-02-22] MEDS ORDERED: MORPHINE SULFATE 10 MG/ML INJ IV ONE ×2 (13:03→16:17)
--- NOTE | 2018-02-22 13:08 | ER Document Report ---
ED General - General Chief Complaint: Nausea/Vomiting/Diarrhea Stated Complaint: WEAKNESS Time Seen by Provider: 02/22/18 12:38 TRAVEL OUTSIDE OF THE [place] IN LAST 30 DAYS: No - HPI Notes: Patient is a 57-year-old female that presents to the emergency department for chief complaint of nausea vomiting and diarrhea. Patient reports 2 episodes of emesis daily for the last 5 days. She also states she has having continuous diarrhea. She denies any black or bloody stools or emesis. Patient states that she is also having diffuse abdominal cramping. The cramping is intermittent and relieved some after a bowel movement. She denies any aggravating factors. She does endorse decreased appetite and p.o. intake. Patient states she has had a low-grade fever but has not taken her temperature at home. She states that she felt warm and had to turn the fan on. She has a history of stroke recently and paralysis. Patient also reports a chronic wound on her sacrum that she is seeing wound management for. Patient also has been having dysuria for the last 2 weeks. Past Medical History: Hypertension, hyperlipidemia, hyperkalemia, stroke, one kidney Past Surgical History: Reviewed in chart Social History: Daily tobacco. Denies drug and alcohol use Family History: Reviewed and noncontributory for presenting illness Allergies: Reviewed, see documented allergy list. REVIEW OF SYSTEMS: CONSTITUTIONAL : No fever chills diaphoresis No recent illness EENT: No vision changes No congestion No sore throat CARDIOVASCULAR: No chest pain No palpitations RESPIRATORY: No shortness of breath No cough No difficulty breathing GASTROINTESTINAL: abdominal pain nausea vomiting diarrhea GENITOURINARY: dysuria No hematuria No difficulty urinating MUSCULOSKELETAL: No back pain No leg pain No arm pain SKIN: No rashes No lesions LYMPHATIC: No swollen, enlarged glands. NEUROLOGICAL: No lightheadedness No headache No weakness No paresthesias PSYCHIATRIC: No anxiety No depression PHYSICAL EXAMINATION: Vital signs reviewed, nursing noted reviewed. GENERAL: Well-appearing, well-nourished and in no acute distress. HEAD: Atraumatic, normocephalic. EYES: Eyes appear normal, extraocular movements intact, sclera anicteric, conjunctiva are normal. ENT: nares patent, oropharynx clear without exudates. Dry mucous membranes. NECK: Normal range of motion, supple without lymphadenopathy LUNGS: Breath sounds clear to auscultation bilaterally and equal. No wheezes rales or rhonchi. HEART: Tachycardic rate and rhythm without murmurs ABDOMEN: Soft, nontender, normoactive bowel sounds. No rebound, guarding, or rigidity. No masses appreciated. EXTREMITIES: Nontender, good range of motion, no pitting or edema. NEUROLOGICAL: Paralysis of right lower extremity. Minimal movement of left lower extremity. PSYCH: Normal mood, normal affect. SKIN: Warm, Dry, normal turgor. Large stage IV sacral decubitus ulcer with no active drainage or bleeding. No surrounding erythema or purulence. - Related Data Allergies/Adverse Reactions: No Known Allergies Allergy (Verified 07/05/17 17:02) Past Medical History - Social History Smoking Status: Current Every Day Smoker Family History: Reviewed & Not Pertinent, Hypertension Patient has suicidal ideation: No Patient has homicidal ideation: No - Past Medical History Cardiac Medical History: Reports: Hx Hypercholesterolemia, Hx Hypertension Pulmonary Medical History: Reports: Hx Bronchitis, Hx COPD, Hx Pneumonia Renal/ Medical History: Denies: Hx Peritoneal Dialysis Musculoskeletal Medical History: Reports Hx Arthritis Psychiatric Medical History: Reports: Hx Depression Past Surgical History: Reports: Hx Cholecystectomy, Hx Hysterectomy, Hx Tubal Ligation - Immunizations Hx Diphtheria, Pertussis, Tetanus Vaccination: Yes Hx Pneumococcal Vaccination: 01/29/15 Physical Exam - Vital signs Vitals: Resp Pulse Ox 14 99 02/22/18 12:21 02/22/18 12:21 Course - Re-evaluation Re-evalutation: 02/22/18 13:06 Vitals reviewed. Nursing notes reviewed. Patient appears dehydrated and was started on IV hydration. She was given morphine and Zofran for symptomatic management. EKG was obtained which shows a sinus tachycardia with no dysrhythmia or ischemic changes. 02/22/18 17:34 Patient's lab work was unremarkable. She had no leukocytosis or lactic acidosis. After 2 L IV hydration her tachycardia has resolved. She is not septic. She is feeling much better and is eating Yakut fries and a sandwich. Urinalysis did show infection which will be treated with antibiotics. She received a dose of Rocephin in the ED and will be discharged home on Keflex. She will be given a prescription for Zofran for symptom medic management at home to. She was discharged home in stable condition. Laboratory 02/22/18 02/22/18 02/22/18 13:17 13:43 13:43 WBC 10.7 H RBC 4.50 Hgb 12.7 Hct 38.2 MCV 85 MCH 28.3 MCHC 33.2 RDW 17.6 H Plt Count 348 Seg Neutrophils % 60.9 Lymphocytes % 32.7 Monocytes % 4.6 Eosinophils % 1.0 Basophils % 0.8 Absolute Neutrophils 6.5 Absolute Lymphocytes 3.5 Absolute Monocytes 0.5 Absolute Eosinophils 0.1 Absolute Basophils 0.1 Sodium 142.1 Potassium 4.3 Chloride 104 Carbon Dioxide 22 Anion Gap 16 BUN 25 H Creatinine 1.11 Est GFR ( Amer) > 60 Est GFR (Non-Af Amer) 50 L Glucose 91 Lactic Acid Calcium 10.7 H Total Bilirubin 0.5 Direct Bilirubin 0.2 Neonat Total Bilirubin Not Reportable Neonat Direct Bilirubin Not Reportable Neonat Indirect Bili Not Reportable AST 23 ALT 25 Alkaline Phosphatase 125 Total Protein 8.5 H Albumin 4.4 Lipase 337.6 H Urine Color YELLOW Urine Appearance CLOUDY Urine pH 5.0 Ur Specific [place] 1.023 Urine Protein 100 H Urine Glucose (UA) NEGATIVE Urine Ketones NEGATIVE Urine Blood SMALL H Urine Nitrite NEGATIVE Urine Bilirubin NEGATIVE Urine Urobilinogen NEGATIVE Ur Leukocyte Esterase LARGE H Urine WBC (Auto) >182 Urine RBC (Auto) 18 Urine Bacteria (Auto) TRACE Urine WBC Clumps MANY Squamous Epi Cells Auto 1 Urine Mucus (Auto) RARE Urine Yeast (Budding) PRESENT Urine Ascorbic Acid NEGATIVE 02/22/18 15:30 WBC RBC Hgb Hct MCV MCH MCHC RDW Plt Count Seg Neutrophils % Lymphocytes % Monocytes % Eosinophils % Basophils % Absolute Neutrophils Absolute Lymphocytes Absolute Monocytes Absolute Eosinophils Absolute Basophils Sodium Potassium Chloride Carbon Dioxide Anion Gap BUN Creatinine Est GFR ( Amer) Est GFR (Non-Af Amer) Glucose Lactic Acid 0.9 Calcium Total Bilirubin Direct Bilirubin Neonat Total Bilirubin Neonat Direct Bilirubin Neonat Indirect Bili AST ALT Alkaline Phosphatase Total Protein Albumin Lipase Urine Color Urine Appearance Urine pH Ur Specific [place] Urine Protein Urine Glucose (UA) Urine Ketones Urine Blood Urine Nitrite Urine Bilirubin Urine Urobilinogen Ur Leukocyte Esterase Urine WBC (Auto) Urine RBC (Auto) Urine Bacteria (Auto) Urine WBC Clumps Squamous Epi Cells Auto Urine Mucus (Auto) Urine Yeast (Budding) Urine Ascorbic Acid - Vital Signs Vital signs: Temp Pulse Resp BP Pulse Ox 98.9 F 20 105/73 96 02/22/18 16:07 02/22/18 15:01 02/22/18 15:01 02/22/18 15:01 - Laboratory Result Diagrams: 02/22/18 13:43 02/22/18 13:43 Laboratory results interpreted by me: 02/22/18 02/22/18 02/22/18 13:17 13:43 13:43 WBC 10.7 H RDW 17.6 H BUN 25 H Est GFR (Non-Af Amer) 50 L Calcium 10.7 H Total Protein 8.5 H Lipase 337.6 H Urine Protein 100 H Urine Blood SMALL H Ur Leukocyte Esterase LARGE H - EKG Interpretation by Me Additional EKG results interpreted by me: 02/22/18 13:07 Interpreted by myself 1229: Sinus tachycardia, rate 115, normal axis, no ectopy, no ST elevation Discharge - Discharge Clinical Impression: Nausea and vomiting Qualifiers: Vomiting type: unspecified Vomiting Intractability: non-intractable Qualified Code(s): R11.2 - Nausea with vomiting, unspecified Diarrhea Qualifiers: Diarrhea type: unspecified type Qualified Code(s): R19.7 - Diarrhea, unspecified UTI (urinary tract infection) Qualifiers: Urinary tract infection type: site unspecified Hematuria presence: without hematuria Qualified Code(s): N39.0 - Urinary tract infection, site not specified Condition: Stable Disposition: HOME, SELF-CARE Instructions: Vomiting ([facility]), Cephalexin ([facility]), Urinary Tract Infection ([facility]) Additional Instructions: Please return to the emergency department if you have any worsening, or concern of your symptoms. Please return to the emergency department if you develop chest pain, difficulty breathing, severe abdominal pain, or ongoing vomiting. Please follow-up with your primary care physician in 2-3 days and any other recommended physicians. If prescribed, take all medications as directed. If you have any questions or concerns do not hesitate to return the emergency department for evaluation. [] Prescriptions: Cephalexin Monohydrate [Keflex 500 mg Capsule] 500 mg PO Q6H 5 Days capsule Ondansetron [Zofran Odt 4 mg Tablet] 1 tab PO Q4H PRN #15 tab.rapdis PRN Reason: For Nausea/Vomiting Referrals: LETA PRIEST DO [Primary Care Provider] - Follow up in 3-5 days
--- NOTE | 2018-02-22 13:34 | EKG REPORT ---
SEVERITY:- ABNORMAL ECG - SINUS TACHYCARDIA NONSPECIFIC ST-T CHANGES DIFFUSE LA ABNORMALITY, CONSIDER [facility]LD [facility] [place]. : Confirmed by: Cory Samson MD 22-Feb-2018 13:34:33
[2018-02-22 13:47] LABS: APPEARANCE,URINE CLOUDY; BILIRUBIN,URINE NEGATIVE (NEGATIVE); COLOR,URINE YELLOW; GLUCOSE, URINE NEGATIVE (NEGATIVE); KETONES,URINE NEGATIVE (NEGATIVE); LEUKOCYTE ESTERASE,URINE LARGE (NEGATIVE); NITRITE,URINE NEGATIVE (NEGATIVE); PROTEIN,URINE 100 mg/dL (NEGATIVE); URINE SPECIFIC GRAVITY 1.023; UROBILINOGEN,URINE NEGATIVE mg/dL (<2.0)
[2018-02-22 13:53] LABS: ABSOLUTE BASOPHILS # (AUTO) 0.1 10^3/uL (0.0-0.2); ABSOLUTE EOSINOPHILS # (AUTO) 0.1 10^3/uL (0.0-0.6); ABSOLUTE LYMPHOCYTES (AUTO) 3.5 10^3/uL (0.5-4.7); ABSOLUTE MONOCYTES (AUTO) 0.5 10^3/uL (0.1-1.4); ABSOLUTE NEUT (AUTO) 6.5 10^3/uL (1.7-8.2); BASOPHILS % (AUTO) 0.8 % (0-2); HEMATOCRIT 38.2 % (36.0-47.0); HEMOGLOBIN 12.7 g/dL (12.0-15.5); LYMPHOCYTES % (AUTO) 32.7 % (13-45); MEAN CORPUSCULAR HEMOGLOBIN 28.3 pg (27.0-33.4); MEAN CORPUSCULAR HGB CONC 33.2 g/dL (32.0-36.0); MEAN CORPUSCULAR VOLUME 85 fl (80-97); MONOCYTES % (AUTO) 4.6 % (3-13); PLATELET COUNT 348 10^3/uL (150-450); RED CELL DISTRIBUTION WIDTH 17.6 % (11.5-14.0); SEGMENTED NEUTROPHILS % (AUTO) 60.9 % (42-78); TOTAL CELLS COUNTED % (AUTO) 100 %; WHITE BLOOD COUNT 10.7 10^3/uL (4.0-10.5)
[2018-02-22 14:10] LABS: ALANINE AMINOTRANSFERASE 25 U/L (9-52); ALBUMIN 4.4 g/dL (3.5-5.0); ALKALINE PHOSPHATASE 125 U/L (38-126); ANION GAP 16 (5-19); ASPARTATE AMINO TRANSFERASE 23 U/L (14-36); BILIRUBIN,DIRECT 0.2 mg/dL (0.0-0.4); BILIRUBIN,TOTAL 0.5 mg/dL (0.2-1.3); BLOOD UREA NITROGEN 25 mg/dL (7-20); CALCIUM 10.7 mg/dL (8.4-10.2); CARBON DIOXIDE 22 mmol/L (22-30); CHLORIDE 104 mmol/L (98-107); GLUCOSE 91 mg/dL (75-110); LIPASE 337.6 U/L (23-300); POTASSIUM 4.3 mmol/L (3.6-5.0); SODIUM 142.1 mmol/L (137-145); TOTAL PROTEIN 8.5 g/dL (6.3-8.2)
[2018-02-22] MEDS ORDERED: CEFTRIAXONE INJ 1000 MG VIAL IV ONE (14:26)
[2018-02-22 18:07] VITALS: BP 95/75
== END 2018-02-22 19:52 | disposition home or self-care (01) ==
LOC: ER 12:08
DX: N39.0 Urinary tract infection, site not specified (principal); R11.2 Nausea with vomiting, unspecified; R19.7 Diarrhea, unspecified; R10.9 Unspecified abdominal pain; R63.0 Anorexia; Z86.73 Personal history of transient ischemic attack (TIA), and cerebral infarction without residual deficits; R30.0 Dysuria; F17.200 Nicotine dependence, unspecified, uncomplicated
CPT/HCPCS: 93005; 36415; 87040; 83690; 85025; 87077; 80053; 81001; 87186; 83605; 93010; J2270; J0696; J2405; J7030; 51701; 96361; 96365; 96375; 96376; 99285

== ENCOUNTER 2018-03-04 20:20 | Inpatient (IN) | payer MEDICAID ==
[2018-03-04] MEDS ORDERED: RINGERS SOLUTION,LACTATED 2,000 ML IV ONE (20:36)
--- NOTE | 2018-03-04 20:39 | ER Document Report ---
ED General - General Stated Complaint: WEAKNESS/SHAKY Time Seen by Provider: 03/04/18 20:31 Cannot obtain history due to: Altered mental status Notes: Patient is a 57-year-old female with a past medical history of hypertension, opiate dependence and abuse, prior CVA with nonambulatory status at baseline, history of advanced sacral decubitus ulcer, presents with vague complaints of feeling unwell for the past 2 weeks. The patient is an extremely poor historian , unable to provide any significant meaningful history nor is her significant other at the bedside. The patient continuously states that she just does not feel well and has not felt well for anywhere between the past 1 month and 2 weeks. She states that she was here 2 weeks ago, diagnosed with a urinary tract infection but has not followed up with her primary care doctor. She is unable to tell me if anything improves or worsens her symptoms. She does complain of diffuse abdominal and back pain. Again has difficulty quantifying this pain. TRAVEL OUTSIDE OF THE [place] IN LAST 30 DAYS: No - Related Data Allergies/Adverse Reactions: No Known Allergies Allergy (Verified 03/04/18 22:53) Past Medical History - General Information source: Patient, Relative Cannot obtain history due to: Unstable vital signs, Uncooperative - Social History Smoking Status: Unknown if Ever Smoked Drug Abuse: Prescription drugs Lives with: Family Family History: Reviewed & Not Pertinent, Hypertension - Past Medical History Cardiac Medical History: Reports: Hx Hypercholesterolemia, Hx Hypertension Pulmonary Medical History: Reports: Hx Bronchitis, Hx COPD, Hx Pneumonia Renal/ Medical History: Denies: Hx Peritoneal Dialysis Musculoskeletal Medical History: Reports Hx Arthritis Psychiatric Medical History: Reports: Hx Depression Past Surgical History: Reports: Hx Cholecystectomy, Hx Hysterectomy, Hx Tubal Ligation - Immunizations Hx Diphtheria, Pertussis, Tetanus Vaccination: Yes Hx Pneumococcal Vaccination: 01/29/15 Review of Systems - Review of Systems Notes: Constitutional: Negative for fever. HENT: Negative for sore throat. Eyes: Negative for visual changes. Cardiovascular: Negative for chest pain. Respiratory: Negative for shortness of breath. Gastrointestinal: Positive for abdominal pain and flank pain Genitourinary: Negative for dysuria. Musculoskeletal: Positive for chronic low back pain Skin: Negative for rash. Neurological: Negative for headaches, weakness or numbness. 10 point ROS negative except as marked above and in HPI. Physical Exam - Vital signs Vitals: Temp Resp BP Pulse Ox 98.9 F 11 L 109/84 94 03/04/18 20:24 03/04/18 20:24 03/04/18 20:24 03/04/18 20:24 Interpretation: Hypotensive, Tachycardic Notes: PHYSICAL EXAMINATION: GENERAL: Appears ill, in no acute distress HEAD: Atraumatic, normocephalic. EYES: Pupils equal round and reactive to light, extraocular movements intact, sclera anicteric, conjunctiva are normal. ENT: nares patent, oropharynx clear without exudates. No dry mucous membranes. NECK: Normal range of motion, supple without lymphadenopathy LUNGS: Mild tachypnea. Breath sounds clear to auscultation bilaterally and equal. No wheezes rales or rhonchi. HEART: Irregular regular tachycardia without murmurs ABDOMEN: Soft, nontender, normoactive bowel sounds. No guarding, no rebound. No masses appreciated. EXTREMITIES: no pitting or edema. No cyanosis. NEUROLOGICAL: No focal neurological deficits. Moves all extremities spontaneously and on command. PSYCH: Somewhat somnolent, very poor historian SKIN: Warm, Dry, normal turgor, large sacral decubitus ulcer stage IV Course - Re-evaluation Re-evalutation: 03/04/18 20:37 Patient presents ill in appearance, hypotensive and mildly tachycardic with complaints of several weeks of feeling generally unwell. It is extremely difficult to obtain accurate history from the patient and her significant other at the bedside as both are very poor historians. From what the patient and her significant other at the bedside are telling me she has had at least one month of generalized fatigue, feeling poorly and abdominal pain. They cannot to me what made him call 911 tonight. Patient was last seen in the emergency department in late January, noted to have borderline blood pressures at that time was diagnosed with a urinary tract infections ultimately discharged home. I do not this patient quite well from November of this year when she presented after an acute overdose and required intubation and transfer to [facility]. She also has a stage IV sacral decubitus wound apparently the wound VAC broke this morning. The patient has declined placement of an EJ or an IJ central line stating that she will not allow any lines to be placed in her neck. She has very poor IV access in any other location. I have had to place a central line in this patient in the past secondary to poor access. I have emphasized the patient and her significant other the need to obtain access quickly given her hypotension and despite that request the family has declined any further aggressive IV measure attempts until additional attempts have been made to obtain upper extremity IVs. Patient's map is currently 52, blood pressure 75 and 46. She is however alert and oriented. She has focal right lower extremity weakness which is apparently baseline and precludes her from walking. Will proceed with labs, continued access attempts and regular reassessment of this patient who is in critical condition 03/04/18 21:18 We have been able to establish improved IV access. Blood pressure is improving with IV fluid resuscitation currently 84 on 60. The patient's blood gas does show a acute respiratory acidosis likely from hypoventilation. The patient has been placed on BiPAP. Awaiting additional laboratories although initial leukocytosis is noted to 18.8. Cefepime 2 g has been initiated. 03/04/18 21:54 Patient's laboratories show severe renal failure GFR has gone from 50 to just 11 in 10 days. I had to spend an extensive period of time at the bed as the patient is extraordinarily fixated on requiring opiate pain medications for her chronic back and leg pain. The patient demonstrates and has been documented on previous occasions including I took care of her in November to have opiate dependency and opiate seeking behavior. Of note when I took care of the patient in November she actually required intubation as an effect of having an opiate overdose. I did very firmly explained to the patient and her that I was far more concerned with her overall clinical picture which included hypotension, leukocytosis, tachycardia, respiratory acidosis, acute renal failure, and pyelonephritis with a global picture of severe sepsis. I explained to the patient that high-dose opiate therapy is not safe in this context and that although her blood pressure has improved with fluid resuscitation, currently 127 on 92 I do not feel it is safe to give her high doses of opiates particular the IV in this context. The patient was initially refusing placement of BiPAP despite trying to review her respiratory acidosis and her pattern of having had intubation in the past. The patient was initially stating that she would not accept BiPAP and that she received opiate pain medications. I was able to convince the patient that we can trial low- dose ketamine and give her some relief with this drug and place BiPAP. The patient was also initially refusing transfer to a facility with nephrology. At this point I did offer the patient comfort care as opposed to continue aggressive care as it appears that her focus is primarily on pain relief as opposed to actually being resuscitated. The patient at that point did change her mind stating that she was okay with transfer to [facility] and continued aggressive care. CT without contrast is pending. 03/04/18 22:13 Patient's blood pressure has been fluctuating although manual blood pressure is 102/76. No need for pressors at this time. I have discussed this case with Dr. Sang Chou at [facility] who has accepted the patient although the patient is on a wait list. I have also contacted [facility] as well as [facility] to seek acceptance for this patient. 03/04/18 22:39 I have contacted the operating room where she do have nephrology coverage in the morning so I have canceled transfers to alternative facilities. I discussed with Dr. Almanza who has requested cardiac markers prior to accepting the patient. - Vital Signs Vital signs: Temp Pulse Resp BP Pulse Ox 98.9 F 18 96/59 L 100 03/04/18 20:24 03/05/18 01:10 03/05/18 01:10 03/05/18 01:10 - Laboratory Result Diagrams: 03/04/18 20:50 03/04/18 20:50 Laboratory results interpreted by me: 03/04/18 03/04/18 03/04/18 20:49 20:50 20:50 WBC 18.8 H Hgb 11.0 L Hct 34.1 L RDW 17.1 H Absolute Neutrophils 12.2 H Absolute Lymphocytes 5.6 H VBG pH VBG pCO2 Carbon Dioxide 20 L BUN 51 H Creatinine 4.21 H Est GFR ( Amer) 13 L Est GFR (Non-Af Amer) 11 L Glucose 114 H POC Glucose 123 H Creatine Kinase CK-MB (CK-2) Urine Protein Urine Blood Ur Leukocyte Esterase 03/04/18 03/04/18 03/04/18 20:50 20:50 20:50 WBC Hgb Hct RDW Absolute Neutrophils Absolute Lymphocytes VBG pH 7.14 L* VBG pCO2 73.3 H* Carbon Dioxide BUN Creatinine Est GFR ( Amer) Est GFR (Non-Af Amer) Glucose POC Glucose Creatine Kinase 365 H CK-MB (CK-2) 6.54 H Urine Protein Urine Blood Ur Leukocyte Esterase 03/04/18 21:16 WBC Hgb Hct RDW Absolute Neutrophils Absolute Lymphocytes VBG pH VBG pCO2 Carbon Dioxide BUN Creatinine Est GFR ( Amer) Est GFR (Non-Af Amer) Glucose POC Glucose Creatine Kinase CK-MB (CK-2) Urine Protein 100 H Urine Blood SMALL H Ur Leukocyte Esterase MODERATE H - Diagnostic Test Radiology reviewed: Image reviewed, Reports reviewed Radiology results interpreted by me: 03/05/18 01:28 Chest x-ray: No acute infiltrate or pneumothorax Critical Care Note - Critical Care Note Total time excluding time spent on procedures (mins): 85 Comments: Critical care time spent obtaining history from patient or surrogate, discussions with consultants, development of treatment plan with patient or surrogate, evaluation of patient's response to treatment, examination of patient , ordering and performing treatments and interventions, ordering and review of laboratory studies, re-evaluation of patient's condition, ordering and review of radiographic studies and review of old charts Discharge - Discharge Clinical Impression: Sacral decubitus ulcer, stage IV, Acute respiratory failure with hypoxia and hypercarbia, Respiratory acidosis, Severe sepsis, Acute kidney injury superimposed on chronic kidney disease Opioid dependence Qualifiers: Substance use status: uncomplicated Qualified Code(s): F11.20 - Opioid dependence, uncomplicated Hypotension Qualifiers: Hypotension type: unspecified hypotension type Qualified Code(s): I95.9 - Hypotension, unspecified Condition: Critical Disposition: ADMITTED INPATIENT Admitting Provider: Hospitalist Unit Admitted: ICU
[2018-03-04 21:07] LABS: VENOUS BLOOD BASE EXCESS -5.3 mmol/L; VENOUS BLOOD HCO3 24.6 mmol/L (20-32)
[2018-03-04 21:09] LABS: ABSOLUTE BASOPHILS # (AUTO) 0.1 10^3/uL (0.0-0.2); ABSOLUTE EOSINOPHILS # (AUTO) 0.2 10^3/uL (0.0-0.6); ABSOLUTE LYMPHOCYTES (AUTO) 5.6 10^3/uL (0.5-4.7); ABSOLUTE MONOCYTES (AUTO) 0.8 10^3/uL (0.1-1.4); ABSOLUTE NEUT (AUTO) 12.2 10^3/uL (1.7-8.2); BASOPHILS % (AUTO) 0.4 % (0-2); EOSINOPHILS % (AUTO) 1.1 % (0-6); HEMATOCRIT 34.1 % (36.0-47.0); LYMPHOCYTES % (AUTO) 29.6 % (13-45); MEAN CORPUSCULAR HEMOGLOBIN 28.5 pg (27.0-33.4); MEAN CORPUSCULAR HGB CONC 32.3 g/dL (32.0-36.0); MEAN CORPUSCULAR VOLUME 88 fl (80-97); MONOCYTES % (AUTO) 4.2 % (3-13); PLATELET COUNT 330 10^3/uL (150-450); RED BLOOD COUNT 3.86 10^6/uL (3.72-5.28); RED CELL DISTRIBUTION WIDTH 17.1 % (11.5-14.0); SEGMENTED NEUTROPHILS % (AUTO) 64.7 % (42-78); TOTAL CELLS COUNTED % (AUTO) 100 %; VENOUS BLOOD PCO2 73.3 mmHg (35-63); VENOUS BLOOD PH 7.14 (7.30-7.42); WHITE BLOOD COUNT 18.8 10^3/uL (4.0-10.5)
[2018-03-04 21:11] LABS: INTERNATIONAL RATION (INR) 0.94; PROTHROMBIN TIME 13.1 SEC (11.4-15.4)
[2018-03-04 21:18] LABS: ALANINE AMINOTRANSFERASE 9 U/L (9-52); ALBUMIN 4.1 g/dL (3.5-5.0); ALKALINE PHOSPHATASE 99 U/L (38-126); ANION GAP 19 (5-19); ASPARTATE AMINO TRANSFERASE 27 U/L (14-36); BILIRUBIN,DIRECT 0.3 mg/dL (0.0-0.4); BILIRUBIN,TOTAL 0.4 mg/dL (0.2-1.3); BLOOD UREA NITROGEN 51 mg/dL (7-20); CALCIUM 10.1 mg/dL (8.4-10.2); CARBON DIOXIDE 20 mmol/L (22-30); CHLORIDE 102 mmol/L (98-107); GLUCOSE 114 mg/dL (75-110); POTASSIUM 4.7 mmol/L (3.6-5.0); SODIUM 141.3 mmol/L (137-145); TOTAL PROTEIN 7.8 g/dL (6.3-8.2)
[2018-03-04] MEDS ORDERED: CEFEPIME 2 GM/D5W RTU 2 GM/50 ML RTUPB IV ONE ×2 (21:18→21:27)
--- NOTE | 2018-03-04 21:26 | RADIOLOGY REPORT (SQ) ---
XR CHEST 1 VIEW HISTORY: Weakness. COMPARISON: 01/07/2018 FINDINGS: The cardiomediastinal silhouette is unremarkable. The lungs are clear. No pleural effusion or pneumothorax is identified. IMPRESSION: No acute cardiopulmonary abnormality.
[2018-03-04 21:38] LABS: APPEARANCE,URINE TURBID; BILIRUBIN,URINE NEGATIVE (NEGATIVE); COLOR,URINE YELLOW; GLUCOSE, URINE NEGATIVE (NEGATIVE); KETONES,URINE NEGATIVE (NEGATIVE); LEUKOCYTE ESTERASE,URINE MODERATE (NEGATIVE); NITRITE,URINE NEGATIVE (NEGATIVE); PROTEIN,URINE 100 mg/dL (NEGATIVE); URINE SPECIFIC GRAVITY 1.021; UROBILINOGEN,URINE NEGATIVE mg/dL (<2.0)
[2018-03-04] MEDS ORDERED: KETAMINE HCL INJ 500 MG/10 ML VIAL IV ONE (21:53)
[2018-03-04] MEDS ORDERED: NORMAL SALINE 1000 ML 1,000 ML IV ONE (21:53)
[2018-03-04] MEDS ORDERED: VANCOMYCIN HCL INJ 1000 MG VIAL IV ONE (21:53)
[2018-03-04] MEDS ORDERED: DEXTROSE 5%-WATER 250 ML with NOREPINEPHRINE BITARTRATE 4 MG IV PRN ×2 (22:10)
[2018-03-04 22:58] LABS: CREATINE KINASE 365 U/L (30-135)
[2018-03-04 23:11] LABS: CREATINE KINASE MB 6.54 ng/mL (<4.55); TROPONIN I 0.015 ng/mL
--- NOTE | 2018-03-04 23:18 | RADIOLOGY REPORT (SQ) ---
EXAM DESCRIPTION: CT ABDOMEN PELVIS WITHOUT IV CONTRAST COMPLETED DATE/TME: 03/04/2018 21:18 CLINICAL HISTORY:57 years Female, abdominal pain, sepsis Comparison: December 25, 2016 TECHNIQUE: Contiguous axial images of the abdomen and pelvis were obtained followed by reconstruction images. This exam was performed according to our departmental dose-optimization program, which includes automated exposure control, adjustment of the mA and/or kV according to patient size and/or use of iterative reconstruction technique. FINDINGS: Lung bases: Minimal bibasilar subsegmental atelectasis. Heart: Visualized heart is within normal limits in size. Liver:Unremarkable. No focal liver lesion. Gallbladder:Cholecystectomy clips seen in gallbladder fossa. Spleen:Unremarkable Pancreas: Pancreas is unremarkable. Adrenal glands: Homogeneous low-density left adrenal mass measuring up to 4.3 cm, unchanged. Kidneys/ureters: The left kidney is atrophic which has slightly progressed since the prior study. The right kidney is normal in appearance. No hydronephrosis. Bladder:Unremarkable. Pelvic organs: No acute abnormality Vascular structures: Endovascular repair of infrarenal abdominal aortic aneurysm with bilateral renal arteries ventricles again noted. The aneurysm sac remains stable in size. Peritoneum: No free fluid. Hazy appearance of the mesenteric fat in the right upper quadrant has improved since prior study. Lymph nodes: No abnormal lymph nodes. Stomach/small bowel/colon: Stomach is unremarkable. Small bowel is unremarkable. Colon is unremarkable. Appendix: No evidence of appendicitis. Bones: No acute osseous abnormality. Soft tissues: Decubitus ulcer over the sacrum, right of midline. No defined fluid collections. No intraperitoneal extension. No reactive osseous changes.. IMPRESSION: No acute intra-abdominal abnormality. Decubitus ulcer over the right sacrum with associated skin thickening but no intra-abdominal/pelvic extension. No reactive osseous changes of the sacrum. Stable left adrenal mass. Left renal atrophy slightly progressed since the prior exam. Minimal bibasilar subsegmental atelectasis.
[2018-03-04] MEDS ORDERED: MAG HYDROX/AL HYDROX/SIMETH SUSP 30 ML UDCUP PO PRN (23:31)
[2018-03-04] MEDS ORDERED: IPRATROPIUM/ALBUTEROL 0.5-2.5 MG/3 ML AMPUL NEB PRN (23:31)
[2018-03-04] MEDS ORDERED: ACETAMINOPHEN 325 MG TABLET PO PRN (23:31)
[2018-03-04] MEDS ORDERED: VANCOMYCIN HCL 0 MG in DEXTROSE 5%-WATER 250 ML IV NR (23:45)
[2018-03-05] MEDS: NORMAL SALINE 1000 ML 1,000 ML IV PRN ×3 (00:02→18:04)
[2018-03-05] MEDS: IPRATROPIUM/ALBUTEROL 0.5-2.5 MG/3 ML AMPUL NEB SCH ×3 (00:02→15:51)
[2018-03-05 01:24] LABS: URINE AMPHETAMINES SCREEN NEGATIVE; URINE BARBITURATES SCREEN NEGATIVE; URINE BENZODIAZEPINES SCREEN NEGATIVE; URINE COCAINE SCREEN NEGATIVE; URINE MARIJUANA (THC) SCREEN NEGATIVE; URINE METHADONE SCREEN NEGATIVE; URINE PHENCYCLIDINE SCREEN NEGATIVE
[2018-03-05] MEDS ORDERED: FENTANYL CITRATE INJ/PF 100 MCG/2 ML AMPUL ONE (03:13)
[2018-03-05] MEDS ORDERED: FENTANYL CITRATE INJ/PF 100 MCG/2 ML AMPUL IV PRN (03:17)
--- NOTE | 2018-03-05 03:25 | PDOC H&P ---
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 Patient presents to the emergency room with severe distress, diaphoresis and shaking stating recent treatment for a urinary tract infection. She is found to have severe sepsis, hypotension 70 over palp, pyelonephritis with metabolic acidosis acute on chronic renal failure. CT imaging is negative for obstruction and she is referred to the hospitalist for admission. She denies chest pain nausea vomiting palpitations or shortness of breath. Past Medical History Cardiac Medical History: Reports: Hyperlipidema, Hypertension Pulmonary Medical History: Reports: Bronchitis, Chronic Obstructive Pulmonary Disease (COPD), Pneumonia Malignancy Medical History: Reports: Other - 4.3 cm left adrenal mass Musculoskeltal Medical History: Reports: Arthritis Psychiatric Medical History: Reports: Depression Past Surgical History Past Surgical History: Reports: Cholecystectomy, Hysterectomy, Tubal Ligation Social History Information Source: Patient, [facility] Records Lives with: Family Smoking Status: Current Some Day Smoker Frequency of Alcohol Use: None Hx Recreational Drug Use: No Drugs: Marijuana Hx Prescription Drug Abuse: No - Advance Directive Resuscitation Status: Full Code Family History Family History: COPD, Hypertension Parental Family History Reviewed: Yes Children Family History Reviewed: Yes Sibling(s) Family History Reviewed.: Yes Medication/Allergy Home Medications: Albuterol Sulfate [Proair HFA Inhalation Aerosol 8.5 gm MDI] 2 puff IH Q6HP PRN 01/24/18 Alprazolam [Xanax] 1 mg PO Q6HP PRN 01/24/18 Atorvastatin Calcium [Lipitor 40 mg Tablet] 40 mg PO DAILY 01/24/18 Atorvastatin Calcium [Lipitor 40 mg Tablet] 40 mg PO DAILY 01/24/18 Dextroamphetamine/Amphetamine [Dextroamp-Amphetamin 30 mg Tab] 30 mg PO TID@0700 ,1400,1600 01/24/18 Gabapentin [Neurontin] 600 mg PO Q6 01/24/18 Lisinopril [Prinivil 10 mg Tablet] 10 mg PO DAILY 01/24/18 Mirtazapine [Remeron 15 mg Tablet] 7.5 mg PO QHS 01/24/18 Olanzapine [Zyprexa] 10 mg PO DAILY 01/24/18 Oxycodone HCl/Acetaminophen [Endocet 10-325 mg Tablet] 1 tab PO Q8HP PRN Paroxetine HCl [Paxil 20 mg Tablet] 20 mg PO DAILY 01/24/18 Zolpidem Tartrate [Ambien] 10 mg PO HSP PRN 01/24/18 Carvedilol [Coreg 12.5 mg Tablet] 1 tab PO Q12 01/25/18 Isosorb Dinit/Hydralazine HCl [Bidil 20-37.5 mg Tablet] 1 tab PO Q8 01/25/18 Sevelamer HCl [Renagel 800 mg Tablet] 800 mg PO MEALS #60 tablet 01/26/18 Oxycodone HCl/Acetaminophen [Percocet 5-325 mg Tablet] 1 tab PO ASDIR PRN #15 tab 01/27/18 Cephalexin Monohydrate [Keflex 500 mg Capsule] 500 mg PO Q6H 5 Days capsule Ondansetron [Zofran Odt 4 mg Tablet] 1 tab PO Q4H PRN #15 tab.rapdis 02/22/18 Allergies/Adverse Reactions: No Known Allergies Allergy (Verified 03/04/18 22:53) Review of Systems ROS unobtainable: Due to mental status Physical Exam Vital Signs: Temp Pulse Resp BP Pulse Ox 98.9 F 9 L 104/62 100 03/04/18 20:24 03/05/18 02:00 03/05/18 02:00 03/05/18 02:00 General appearance: PRESENT: disheveled, severe distress. ABSENT: cooperative Head exam: PRESENT: atraumatic, normocephalic Eye exam: PRESENT: conjunctiva pink, EOMI, PERRLA. ABSENT: scleral icterus Ear exam: PRESENT: normal external ear exam Mouth exam: PRESENT: dry mucosa, tongue midline Neck exam: ABSENT: carotid bruit, JVD, lymphadenopathy, thyromegaly Respiratory exam: PRESENT: accessory muscle use, prolonged expiratory phas, tachypnea. ABSENT: rales, rhonchi, wheezes Cardiovascular exam: PRESENT: RRR, tachycardia. ABSENT: diastolic murmur, rubs , systolic murmur Pulses: PRESENT: normal dorsalis pedis pul Vascular exam: PRESENT: normal capillary refill GI/Abdominal exam: PRESENT: normal bowel sounds, soft. ABSENT: distended, guarding, mass, organolmegaly, rebound, tenderness Rectal exam: PRESENT: deferred Extremities exam: PRESENT: full ROM. ABSENT: calf tenderness, clubbing, pedal edema Musculoskeletal exam: ABSENT: ambulatory, deformity Neurological exam: PRESENT: alert, awake, oriented to person, oriented to place , oriented to time, oriented to situation, CN II-XII grossly intact. ABSENT: motor sensory deficit Adult Front & Back Image: 1 - 3 x 4 x 1.5 cm sacral decubiti with packing. Results Impressions: Chest X-Ray 03/04/18 20:22 IMPRESSION: No acute cardiopulmonary abnormality. Abdomen/Pelvis CT 03/04/18 21:18 IMPRESSION: No acute intra-abdominal abnormality. Decubitus ulcer over the right sacrum with associated skin thickening but no intra-abdominal/pelvic extension. No reactive osseous changes of the sacrum. Stable left adrenal mass. Left renal atrophy slightly progressed since the prior exam. Minimal bibasilar subsegmental atelectasis. Assessment & Plan - Diagnosis (1) Pyelonephritis Is this a current diagnosis for this admission?: Yes Plan: Without obstruction, IV antibiotics, IV fluid challenge, follow-up CBC blood and urine culture (2) Severe sepsis Is this a current diagnosis for this admission?: Yes Plan: Secondary to #1, ICU admission, IV fluid challenge, pressors as needed (3) Adrenal mass, left Is this a current diagnosis for this admission?: Yes Plan: Follow-up urine metanephrines ordered (4) Acute kidney injury superimposed on chronic kidney disease Is this a current diagnosis for this admission?: Yes Plan: Secondary to #1, IV fluid challenge, avoid nephrotoxic meds and doses follow-up chemistry (5) Opioid dependence Qualifiers: Substance use status: uncomplicated Qualified Code(s): F11.20 - Opioid dependence, uncomplicated Is this a current diagnosis for this admission?: Yes Plan: IV fentanyl as needed (6) Sacral decubitus ulcer, stage IV Is this a current diagnosis for this admission?: Yes Plan: Appears clean, follow-up wound culture, consider surgery consult - Time Time Spent: 50 to 70 Minutes - Inpatient Certification Medical Necessity: Need Close Monitoring Due to Risk of Patient Decompensation
[2018-03-05 03:34] LABS: ABSOLUTE BASOPHILS # (AUTO) 0.1 10^3/uL (0.0-0.2); ABSOLUTE EOSINOPHILS # (AUTO) 0.2 10^3/uL (0.0-0.6); ABSOLUTE LYMPHOCYTES (AUTO) 4.5 10^3/uL (0.5-4.7); ABSOLUTE MONOCYTES (AUTO) 0.6 10^3/uL (0.1-1.4); ABSOLUTE NEUT (AUTO) 10.1 10^3/uL (1.7-8.2); BASOPHILS % (AUTO) 0.9 % (0-2); EOSINOPHILS % (AUTO) 1.4 % (0-6); HEMATOCRIT 32.3 % (36.0-47.0); HEMOGLOBIN 10.2 g/dL (12.0-15.5); LYMPHOCYTES % (AUTO) 28.9 % (13-45); MEAN CORPUSCULAR HEMOGLOBIN 27.8 pg (27.0-33.4); MEAN CORPUSCULAR HGB CONC 31.7 g/dL (32.0-36.0); MEAN CORPUSCULAR VOLUME 88 fl (80-97); MONOCYTES % (AUTO) 4.1 % (3-13); PLATELET COUNT 251 10^3/uL (150-450); RED BLOOD COUNT 3.69 10^6/uL (3.72-5.28); RED CELL DISTRIBUTION WIDTH 16.8 % (11.5-14.0); SEGMENTED NEUTROPHILS % (AUTO) 64.7 % (42-78); TOTAL CELLS COUNTED % (AUTO) 100 %; WHITE BLOOD COUNT 15.7 10^3/uL (4.0-10.5)
[2018-03-05 03:45] LABS: ALANINE AMINOTRANSFERASE 14 U/L (9-52); ALBUMIN 3.5 g/dL (3.5-5.0); ALKALINE PHOSPHATASE 90 U/L (38-126); ANION GAP 18 (5-19); ASPARTATE AMINO TRANSFERASE 25 U/L (14-36); BILIRUBIN,DIRECT 0.3 mg/dL (0.0-0.4); BILIRUBIN,TOTAL 0.4 mg/dL (0.2-1.3); BLOOD UREA NITROGEN 45 mg/dL (7-20); CALCIUM 9.6 mg/dL (8.4-10.2); CARBON DIOXIDE 18 mmol/L (22-30); CHLORIDE 107 mmol/L (98-107); CREATINE KINASE 373 U/L (30-135); GLUCOSE 94 mg/dL (75-110); POTASSIUM 4.6 mmol/L (3.6-5.0); SODIUM 143.2 mmol/L (137-145); TOTAL PROTEIN 7.1 g/dL (6.3-8.2)
[2018-03-05 04:01] LABS: TROPONIN I < 0.012 ng/mL
[2018-03-05] MEDS ORDERED: DEXTROSE 5%-WATER 250 ML with NOREPINEPHRINE BITARTRATE 4 MG IV PRN ×2 (06:24)
[2018-03-05] MEDS ORDERED: NOREPINEPHRINE BITARTRATE INJ/PF 4 MG/4 ML SDV IV ONE (06:29)
[2018-03-05] MEDS ORDERED: HYDROCORTISONE SOD SUCCINATE INJ/PF 100 MG/2 ML SDV IV ONE (06:30)
[2018-03-05] MEDS: HEPARIN SOD (PORCINE) 5,000 UNIT/ML 1 ML SYRINGE SUBCUT SCH ×3 (06:40→22:09)
--- NOTE | 2018-03-05 06:54 | EKG REPORT ---
SEVERITY:- ABNORMAL ECG - SINUS TACHYCARDIA NONSPECIFIC T ABNORMALITIES, ANT-LAT LEADS : Confirmed by: Mayte Aguirre 05-Mar-2018 06:53:51
[2018-03-05 09:39] LABS: CREATINE KINASE MB 6.57 ng/mL (<4.55)
[2018-03-05 09:47] LABS: TROPONIN I < 0.012 ng/mL
[2018-03-05] MEDS ORDERED: CEFTRIAXONE 1 GM/D5W RTU 1 GM/50 ML RTUPB IV SCH (10:00)
[2018-03-05] MEDS: DOCUSATE SODIUM 100 MG CAPSULE PO SCH ×2 (10:24→17:26)
--- NOTE | 2018-03-05 12:18 | PDOC PROGRESS REPORT ---
Subjective Progress Note for:: 03/05/18 Subjective:: Ms. Gomez is a 57 year old female with a past medical history of COPD with persistent tobacco abuse, obstructive sleep apnea, polypharmacy, chronic pain with opiate dependence, history of intubation due to opiate-related acute respiratory failure, stage III chronic kidney disease, known 4.3 cm left adrenal mass, CVA with residual leg weakness, chornic stage IV sacral decubitus ulcer, and history of infrarenal aortic aneurysm with prior repair who presented with weakness, chills, urinary frequency and dysuria. In the ER, she was noted to be hypotensive in the 70s systolic. She also had tachycardia, leukocytosis and acute renal failue. She was given IV fluids. She was about to be started on Levophed but her BP improved with fluid resuscitation. Patient did have an episode of lethargy with fentanyl and her RR dropped to 8. Upon encounter, patient says she has chronic back pain. She denies increasing drainage on her chronic decubitus ulcer. is on the bedside. Sister was also placed on speaker phone. Blood pressures have improved. Her tachycardia has also improved from 130s to 101. Patient was discharged to SNF before but she left AMA. Family expressed concern over her left adrenal mass. This has been previously found and she was supposed to see a urologist and psychiatric aide outpatient but admitted to noncompliance after she left the SNF. Reason For Visit: ARF PYELONEPHRITIS SEVERE SEPSIS Physical Exam Vital Signs: Temp Pulse Resp BP Pulse Ox 97.8 F 63 7 L 98/59 L 100 03/05/18 06:00 03/05/18 07:59 03/05/18 10:00 03/05/18 08:41 03/05/18 10:00 Intake & Output 03/04/18 03/05/18 03/06/18 06:59 06:59 06:59 Intake Total 1720 770 Output Total 900 285 Balance 820 485 Weight 168 lb 3.403 oz General appearance: PRESENT: no acute distress, well-developed, well-nourished Head exam: PRESENT: atraumatic, normocephalic Eye exam: PRESENT: conjunctiva pink, EOMI, PERRLA. ABSENT: scleral icterus Ear exam: PRESENT: normal external ear exam Mouth exam: PRESENT: dry mucosa Neck exam: ABSENT: carotid bruit, JVD, lymphadenopathy, thyromegaly Respiratory exam: PRESENT: clear to auscultation abraham. ABSENT: rales, rhonchi, wheezes Cardiovascular exam: PRESENT: RRR. ABSENT: diastolic murmur, rubs, systolic murmur Pulses: PRESENT: normal dorsalis pedis pul GI/Abdominal exam: PRESENT: normal bowel sounds, soft. ABSENT: distended, guarding, mass, organolmegaly, rebound, tenderness Musculoskeletal exam: PRESENT: other - note of a grade 4 chronic sacral decubitus ulcer. Ulcer does not appear to be infected, no significant erythema or drainage. Neurological exam: PRESENT: alert, awake, oriented to person, oriented to place , oriented to time, oriented to situation, CN II-XII grossly intact. ABSENT: motor sensory deficit Results Laboratory Results: 03/05/18 03:16 03/05/18 03:16 03/05/18 03/05/18 03:16 03:16 WBC 15.7 H RBC 3.69 L Hgb 10.2 L Hct 32.3 L MCV 88 MCH 27.8 MCHC 31.7 L RDW 16.8 H Plt Count 251 Seg Neutrophils % 64.7 Lymphocytes % 28.9 Monocytes % 4.1 Eosinophils % 1.4 Basophils % 0.9 Absolute Neutrophils 10.1 H Absolute Lymphocytes 4.5 Absolute Monocytes 0.6 Absolute Eosinophils 0.2 Absolute Basophils 0.1 Sodium 143.2 Potassium 4.6 Chloride 107 Carbon Dioxide 18 L Anion Gap 18 BUN 45 H Creatinine 2.80 H Est GFR ( Amer) 21 L Est GFR (Non-Af Amer) 17 L Glucose 94 Calcium 9.6 Total Bilirubin 0.4 AST 25 ALT 14 Alkaline Phosphatase 90 Total Protein 7.1 Albumin 3.5 03/05/18 03/05/18 03/05/18 03:16 03:16 08:57 Creatine Kinase 373 H 565 H CK-MB (CK-2) 6.20 H Troponin I < 0.012 03/05/18 08:57 Creatine Kinase CK-MB (CK-2) 6.57 H Troponin I < 0.012 Impressions: Chest X-Ray 03/04/18 20:22 IMPRESSION: No acute cardiopulmonary abnormality. Abdomen/Pelvis CT 03/04/18 21:18 IMPRESSION: No acute intra-abdominal abnormality. Decubitus ulcer over the right sacrum with associated skin thickening but no intra-abdominal/pelvic extension. No reactive osseous changes of the sacrum. Stable left adrenal mass. Left renal atrophy slightly progressed since the prior exam. Minimal bibasilar subsegmental atelectasis. Assessment & Plan - Diagnosis (1) Hypotension Qualifiers: Hypotension type: unspecified hypotension type Qualified Code(s): I95.9 - Hypotension, unspecified Is this a current diagnosis for this admission?: Yes Plan: Resolved. Likely from severe sepsis. (2) Severe sepsis Is this a current diagnosis for this admission?: Yes Plan: Secondary to pyelonephritis. Patient presented with dysuria, urinary frequency, chills, tachycardia, hypotension, leukocytosis and acute renal failure. UA is also consistent with UTI. She has received 4L of IV fluids so far. Levophed was not started as her BP improved with fluids. Continue IV fluids at 120 cc/hr. She was started empirically on vancomycin and Rocephin. Discontinue vancomycin if blood culture is negative for gram positive cocci later today. Urine culture is growing gram negative rods. (3) Acute kidney injury superimposed on chronic kidney disease Is this a current diagnosis for this admission?: Yes Plan: Non-oliguric. Likely a combination of pre renal SEB and acute tubular necrosis from hypotension and sepsis. Creatinine has improved albeit still elevated after IV fluids. Creatinine trended down to 2.8 from 4.2. She has a creatinine baseline of 1.2-1.3. (4) Sacral decubitus ulcer, stage IV Is this a current diagnosis for this admission?: Yes Plan: Chronic ulcer does not appear infected. Continue daily wound dressing. She did have transient lethargy with fentanyl and her RR dropped to 8. Will DC fentanyl. She does complain of back pain. Will resume Percocet at half the dose she takes at home due to her SEB. Will add lidocaine patch. (5) Adrenal mass, left Is this a current diagnosis for this admission?: Yes Plan: Stable size. Biochemical work-up sent out. Strongly advised patient she will need to be compliant with the appropriate outpatient consults for her adrenal mass as she has missed these appointments. - Time Time Spent with patient: 25-34 minutes
[2018-03-05] MEDS ORDERED: HYDROCORTISONE SOD SUCCINATE INJ/PF 100 MG/2 ML SDV IV SCH (14:00)
[2018-03-05] MEDS ORDERED: ACETAMINOPHEN 325 MG TABLET PO PRN (14:40)
[2018-03-05] MEDS ORDERED: LIDOCAINE 5% (700 MG) TRANSDERMAL ADH..PATCH TP ONE (16:03)
[2018-03-05 17:12] LABS: CREATINE KINASE MB 6.98 ng/mL (<4.55); TROPONIN I 0.014 ng/mL
--- NOTE | 2018-03-05 17:56 | PDOC CONSULTATION ---
Consultation Consult Date: 03/05/18 Attending physician:: ARMEN SÁNCHEZ Consult reason:: I was asked to see the patient because of acute worsening of kidney function. History of Present Illness Admission Date/PCP: 03/04/18 23:39 LETA PRIEST DO History of Present Illness: KAREN MALDONADO is a 57 year old female with history of COPD, chronic kidney disease, 4.3 cm left adrenal mass, CVA with right-sided residual weakness, obstructive sleep apnea, COPD, chronic pain with opiate dependence, and sacral decubitus who was brought into the emergency room by EMS when she was noted to be shaking at home and has some altered mentation. Patient said that she is not been doing well and has problem with pain in urination for 4 days but denies any fever no chills. When she came in her blood pressure was very low, lowest blood pressure noted was 69/56. Her initial BUN was 51, creatinine of 4.21 and estimated GFR of 11. Today her BUN is 45, creatinine is 2.8 and estimated GFR of 17. Records show that her baseline BUN runs anywhere between 30s-40s, creatinine ranges 1.02-1.18 and EGFR around 41 2-50s. Patient was given IV fluid boluses and was started on IV antibiotics for urinary tract infection is currently with culture growing E. coli. Her blood pressure is also improved and her tachycardia is better. She also has left adrenal mass on CT scan. Apparently she was supposed to follow-up with an urologist and newspaper subscription solicitor after recent discharge but then she did not comply with appointments per notes. Currently they are collecting 24-hour urine for metanephrines. Patient is aware that she has some kidney problems. She denies any history of kidney stones. He has occasional chest pains but denies any leg swelling. She denies any hematuria. She denies any weight loss. Past Medical History Cardiac Medical History: Reports: Hyperlipidemia, Hypertension-primary Pulmonary Medical History: Reports: Bronchitis, Chronic Obstructive Pulmonary Disease (COPD), Pneumonia Renal/ Medical History: Reports: Chronic Kidney Disease Stage III Malignancy Medical History: Reports: Other - 4.3 cm left adrenal mass Musculoskeltal Medical History: Reports: Arthritis Psychiatric Medical History: Reports: Depression Past Surgical History Past Surgical History: Reports: Cholecystectomy, Hysterectomy, Tubal Ligation Social History Information Source: [facility] Records Lives with: Family Smoking Status: Current Some Day Smoker Frequency of Alcohol Use: None Hx Recreational Drug Use: No Drugs: Marijuana Hx Prescription Drug Abuse: No - Advance Directive Resuscitation Status: Full Code Family History Family History: Hypertension Parental Family History Reviewed: Yes Children Family History Reviewed: Yes Sibling(s) Family History Reviewed.: Yes Medication/Allergy Home Medications: Albuterol Sulfate [Proair HFA Inhalation Aerosol 8.5 gm MDI] 2 puff IH Q4HP PRN 03/05/18 Atorvastatin Calcium [Lipitor 40 mg Tablet] 40 mg PO QHS 03/05/18 Gabapentin [Neurontin] 600 mg PO Q6 03/05/18 Lisinopril [Zestril] 10 mg PO DAILY 03/05/18 Multivitamin [Animal Shapes] 1 tab PO DAILY 03/05/18 Oxycodone HCl/Acetaminophen [Percocet 10-325 mg Tablet] 1 tab PO Q8HP PRN Allergies/Adverse Reactions: No Known Allergies Allergy (Verified 03/04/18 22:53) Review of Systems All systems: reviewed and no additional remarkable complaints except as stated Review of Systems: Constitutional: ABSENT: Fatigue, headache(s), weight gain, weight loss; she had fever and chills on admission Eyes: ABSENT: visual disturbances Ears: ABSENT: hearing changes Cardiovascular: ABSENT: chest pain, dyspnea on exertion, edema, orthropnea, palpitations Respiratory: ABSENT: cough, dyspnea, hemoptysis Gastrointestinal: ABSENT: abdominal pain, constipation, diarrhea, hematemesis, hematochezia, nausea, vomiting Genitourinary: ABSENT: Hematuria; admits dysuria Musculoskeletal: ABSENT: joint swelling; chronic pain Integumentary: ABSENT: rash, wounds Neurological: ABSENT: abnormal gait, abnormal speech, confusion, dizziness, focal weakness, numbness, syncope Psychiatric: ABSENT: anxiety, depression Endocrine: ABSENT: cold intolerance, heat intolerance, polydipsia, polyuria Hematologic/Lymphatic: ABSENT: easy bleeding, easy bruising, lymphadenopathy Physical Exam Vital Signs: Temp Pulse Resp BP Pulse Ox 97.8 F 63 13 82/63 L 100 03/05/18 06:00 03/05/18 07:59 03/05/18 16:41 03/05/18 16:41 03/05/18 16:41 Intake & Output 03/04/18 03/05/18 03/06/18 06:59 06:59 06:59 Intake Total 1720 1130 Output Total 900 825 Balance 820 305 Weight 76.3 kg Exam: General appearance: No acute distress, cooperative, well-developed, well- nourished Head exam: PRESENT: atraumatic, normocephalic Eye exam: PRESENT: Conjunctiva slightly pale, EOMI, PERRLA. ABSENT: conjunctival injection, scleral icterus Mouth exam: PRESENT: moist, neck supple, tongue midline Neck exam: PRESENT: full ROM. ABSENT: carotid bruit, JVD, lymphadenopathy, thyromegaly Respiratory exam: PRESENT: clear to auscultation bilaterally. ABSENT: rales, rhonchi, stridor, wheezes Cardiovascular exam: PRESENT: RRR, +S1, +S2. Tachycardic ABSENT: systolic murmur Pulses: PRESENT: normal radial pulses, normal dorsalis pedis pulses GI/Abdominal exam: PRESENT: normal bowel sounds, soft. ABSENT: guarding, mass, tenderness Rectal exam: Deferred Extremities exam: PRESENT: full ROM. Mild bilateral ankle edema ABSENT: calf tenderness Musculoskeletal: PRESENT: full ROM. ABSENT: deformity Neurological exam: PRESENT: alert, Awake, Oriented to person, Oriented to place , Oriented to time, reflexes normal, CN II-XII grossly intact. She has right upper and lower extremity weakness ABSENT: Sensory deficit Psychiatric exam: PRESENT: appropriate affect, normal mood. However she seems to cry very easily when she talks about her pain. When I told her that I am not here to take care of her pain she actually stopped acting out. ABSENT: homicidal ideation, suicidal ideation Skin exam: PRESENT: intact, dry, warm. ABSENT: rash Results Laboratory Results: 03/05/18 03:16 03/05/18 03:16 03/05/18 03/05/18 03:16 03:16 WBC 15.7 H RBC 3.69 L Hgb 10.2 L Hct 32.3 L MCV 88 MCH 27.8 MCHC 31.7 L RDW 16.8 H Plt Count 251 Seg Neutrophils % 64.7 Lymphocytes % 28.9 Monocytes % 4.1 Eosinophils % 1.4 Basophils % 0.9 Absolute Neutrophils 10.1 H Absolute Lymphocytes 4.5 Absolute Monocytes 0.6 Absolute Eosinophils 0.2 Absolute Basophils 0.1 Sodium 143.2 Potassium 4.6 Chloride 107 Carbon Dioxide 18 L Anion Gap 18 BUN 45 H Creatinine 2.80 H Est GFR ( Amer) 21 L Est GFR (Non-Af Amer) 17 L Glucose 94 Calcium 9.6 Total Bilirubin 0.4 AST 25 ALT 14 Alkaline Phosphatase 90 Total Protein 7.1 Albumin 3.5 03/05/18 03/05/18 03/05/18 03:16 03:16 08:57 Creatine Kinase 373 H 565 H CK-MB (CK-2) 6.20 H Troponin I < 0.012 03/05/18 03/05/18 03/05/18 08:57 16:27 16:27 Creatine Kinase 733 H CK-MB (CK-2) 6.57 H 6.98 H Troponin I < 0.012 0.014 Impressions: Chest X-Ray 03/04/18 20:22 IMPRESSION: No acute cardiopulmonary abnormality. Abdomen/Pelvis CT 03/04/18 21:18 IMPRESSION: No acute intra-abdominal abnormality. Decubitus ulcer over the right sacrum with associated skin thickening but no intra-abdominal/pelvic extension. No reactive osseous changes of the sacrum. Stable left adrenal mass. Left renal atrophy slightly progressed since the prior exam. Minimal bibasilar subsegmental atelectasis. Assessment & Plan - Diagnosis (1) Acute kidney injury superimposed on chronic kidney disease Is this a current diagnosis for this admission?: Yes Plan: Acute worsening of kidney function likely secondary to hypotension due to sepsis causing mild acute tubular necrosis that is currently improving. Patient has responded very well so IV fluid hydration and improvement of blood pressure. She is currently nonoliguric. No need for any renal replacement therapy at this time. Avoid nephrotoxic medications. Continue to monitor kidney function. Continue IV fluids. (2) Acute tubular necrosis Is this a current diagnosis for this admission?: Yes Plan: Due to hypotension. (3) Adrenal mass, left Is this a current diagnosis for this admission?: Yes Plan: Biochemical workup started with 24-hour urine for metanephrines. Cortisol level is acceptable. I will also order plasma renin, plasma aldosterone and plasma metanephrines. (4) CKD (chronic kidney disease), stage III Is this a current diagnosis for this admission?: Yes (5) UTI (urinary tract infection) Qualifiers: Urinary tract infection type: site unspecified Hematuria presence: without hematuria Qualified Code(s): N39.0 - Urinary tract infection, site not specified Is this a current diagnosis for this admission?: Yes Plan: On IV antibiotics. Defer to hospitalist service. (6) Sepsis Qualifiers: Sepsis type: sepsis due to unspecified organism Qualified Code(s): A41.9 - Sepsis, unspecified organism (7) Hypotension Qualifiers: Hypotension type: unspecified hypotension type Qualified Code(s): I95.9 - Hypotension, unspecified Is this a current diagnosis for this admission?: Yes Plan: Improved. (8) Opioid dependence Qualifiers: Substance use status: uncomplicated Qualified Code(s): F11.20 - Opioid dependence, uncomplicated Is this a current diagnosis for this admission?: Yes (9) Sacral decubitus ulcer, stage IV Is this a current diagnosis for this admission?: Yes - Notes Notes: Thank you very much for this consultation. - Time Time Spent: 50 to 70 Minutes
[2018-03-05] MEDS ORDERED: VANCOMYCIN HCL 750 MG in DEXTROSE 5%-WATER 250 ML IV SCH (20:00)
[2018-03-05] MEDS ORDERED: VANCOMYCIN HCL 500 MG in DEXTROSE 5%-WATER 100 ML IV SCH (22:00)
[2018-03-05] MEDS: OXYCODONE-ACETAMINOPHEN 5-325 MG TABLET PO PRN (22:10)
[2018-03-06] MEDS: IPRATROPIUM/ALBUTEROL 0.5-2.5 MG/3 ML AMPUL NEB SCH ×3 (00:48→16:24)
[2018-03-06] MEDS: NORMAL SALINE 1000 ML 1,000 ML IV PRN ×3 (03:34→19:44)
[2018-03-06] MEDS: HEPARIN SOD (PORCINE) 5,000 UNIT/ML 1 ML SYRINGE SUBCUT SCH ×3 (06:16→21:53)
[2018-03-06 06:18] LABS: ABSOLUTE EOSINOPHILS # (AUTO) 0.1 10^3/uL (0.0-0.6); ABSOLUTE MONOCYTES (AUTO) 0.4 10^3/uL (0.1-1.4); ABSOLUTE NEUT (AUTO) 5.4 10^3/uL (1.7-8.2); BASOPHILS % (AUTO) 0.3 % (0-2); EOSINOPHILS % (AUTO) 1.4 % (0-6); HEMATOCRIT 25.3 % (36.0-47.0); HEMOGLOBIN 8.2 g/dL (12.0-15.5); LYMPHOCYTES % (AUTO) 33.1 % (13-45); MEAN CORPUSCULAR HEMOGLOBIN 28.2 pg (27.0-33.4); MEAN CORPUSCULAR HGB CONC 32.4 g/dL (32.0-36.0); MEAN CORPUSCULAR VOLUME 87 fl (80-97); MONOCYTES % (AUTO) 4.4 % (3-13); PLATELET COUNT 208 10^3/uL (150-450); SEGMENTED NEUTROPHILS % (AUTO) 60.8 % (42-78); TOTAL CELLS COUNTED % (AUTO) 100 %; WHITE BLOOD COUNT 8.9 10^3/uL (4.0-10.5)
[2018-03-06 06:41] LABS: ANION GAP 11 (5-19); BLOOD UREA NITROGEN 32 mg/dL (7-20); CALCIUM 9.2 mg/dL (8.4-10.2); CARBON DIOXIDE 19 mmol/L (22-30); CHLORIDE 114 mmol/L (98-107); GLUCOSE 106 mg/dL (75-110); POTASSIUM 3.6 mmol/L (3.6-5.0); SODIUM 143.7 mmol/L (137-145)
[2018-03-06] MEDS: OXYCODONE-ACETAMINOPHEN 5-325 MG TABLET PO PRN ×3 (07:46→20:30)
[2018-03-06] MEDS: DOCUSATE SODIUM 100 MG CAPSULE PO SCH ×2 (09:36→17:47)
[2018-03-06] MEDS: CEFTRIAXONE SODIUM 1,000 MG in DEXTROSE 5%-WATER 50 ML IV SCH (09:44)
--- NOTE | 2018-03-06 13:24 | PDOC PROGRESS REPORT ---
Subjective Progress Note for:: 03/06/18 Subjective:: Patient is doing well. She is afebrile. White count is normal. Blood pressure is normal. Blood culture shows gram-negative rods. Wound culture shows normal lorri and gram-negative rods. Reason For Visit: ARF PYELONEPHRITIS SEVERE SEPSIS Physical Exam Vital Signs: Temp Pulse Resp BP Pulse Ox 97.5 F 97 16 124/53 L 99 03/06/18 11:44 03/06/18 11:44 03/06/18 11:44 03/06/18 11:44 03/06/18 11:44 Intake & Output 03/05/18 03/06/18 03/07/18 06:59 06:59 06:59 Intake Total 1720 3445 1050 Output Total 900 1860 Balance 820 1585 1050 Weight 168 lb 3.403 oz 178 lb 2.136 oz General appearance: PRESENT: no acute distress, cooperative Head exam: PRESENT: atraumatic, normocephalic Eye exam: PRESENT: EOMI. ABSENT: conjunctival injection Ear exam: ABSENT: bleeding Mouth exam: PRESENT: neck supple Neck exam: ABSENT: meningismus Respiratory exam: PRESENT: clear to auscultation abraham. ABSENT: accessory muscle use, wheezes Cardiovascular exam: PRESENT: RRR. ABSENT: systolic murmur GI/Abdominal exam: PRESENT: normal bowel sounds. ABSENT: ascites, distended, tenderness Rectal exam: PRESENT: deferred Neurological exam: PRESENT: alert, altered, awake, oriented to person, oriented to place, oriented to time, oriented to situation Psychiatric exam: ABSENT: agitated, anxious Results Laboratory Results: 03/06/18 05:56 03/06/18 05:56 03/06/18 03/06/18 05:56 05:56 WBC 8.9 RBC 2.90 L Hgb 8.2 L Hct 25.3 L MCV 87 MCH 28.2 MCHC 32.4 RDW 17.0 H Plt Count 208 Seg Neutrophils % 60.8 Lymphocytes % 33.1 Monocytes % 4.4 Eosinophils % 1.4 Basophils % 0.3 Absolute Neutrophils 5.4 Absolute Lymphocytes 3.0 Absolute Monocytes 0.4 Absolute Eosinophils 0.1 Absolute Basophils 0.0 Sodium 143.7 Potassium 3.6 Chloride 114 H Carbon Dioxide 19 L Anion Gap 11 BUN 32 H Creatinine 1.22 Est GFR ( Amer) 55 L Est GFR (Non-Af Amer) 45 L Glucose 106 Calcium 9.2 03/05/18 03/05/18 03/05/18 03:16 03:16 08:57 Creatine Kinase 373 H 565 H CK-MB (CK-2) 6.20 H Troponin I < 0.012 03/05/18 03/05/18 03/05/18 08:57 16:27 16:27 Creatine Kinase 733 H CK-MB (CK-2) 6.57 H 6.98 H Troponin I < 0.012 0.014 Impressions: Chest X-Ray 03/04/18 20:22 IMPRESSION: No acute cardiopulmonary abnormality. Abdomen/Pelvis CT 03/04/18 21:18 IMPRESSION: No acute intra-abdominal abnormality. Decubitus ulcer over the right sacrum with associated skin thickening but no intra-abdominal/pelvic extension. No reactive osseous changes of the sacrum. Stable left adrenal mass. Left renal atrophy slightly progressed since the prior exam. Minimal bibasilar subsegmental atelectasis. Assessment & Plan - Plan Summary Plan Summary: (1) Hypotension Qualifiers: Hypotension type: unspecified hypotension type Qualified Code(s): I95.9 - Hypotension, unspecified Is this a current diagnosis for this admission?: Yes Plan: Resolved. Likely from severe sepsis. (2) Severe sepsis Is this a current diagnosis for this admission?: Yes Plan: Secondary to UTI. Patient presented with dysuria, urinary frequency, chills, tachycardia, hypotension, leukocytosis and acute renal failure. UA was also consistent with UTI. She received IV fluids. She was started empirically on vancomycin and Rocephin. Continue ceftriaxone and stop vancomycin. (3) Acute kidney injury superimposed on chronic kidney disease Is this a current diagnosis for this admission?: Yes Plan: Non-oliguric. Likely a combination of pre renal SEB and acute tubular necrosis from hypotension and sepsis. Creatinine has improved after IV fluids. (4) Sacral decubitus ulcer, stage IV Is this a current diagnosis for this admission?: Yes Plan: Chronic ulcer does not appear infected. Continue daily wound dressing. Culture shows normal lorri and gram-negative rods. (5) Adrenal mass, left Is this a current diagnosis for this admission?: Yes Plan: Stable size. Follow-up outpatient. (6) urinary tract infection Urine culture positive for gram-negative rods. Follow-up final culture results. Continue ceftriaxone. Stop vancomycin.
[2018-03-06] MEDS ORDERED: ALBUTEROL SULFATE HFA (90 MCG/PUFF) 200 PUFF/8.5 GM MDI IH PRN (15:50)
[2018-03-06] MEDS: GABAPENTIN 300 MG CAPSULE PO SCH ×2 (17:47→23:04)
--- NOTE | 2018-03-06 18:19 | PDOC PROGRESS REPORT ---
Subjective Progress Note for:: 03/06/18 Subjective:: Patient is doing much better. Her blood pressure is improving and her tachycardia resolving. Only complaint she has is the pain and discomfort of the Marinelli catheter. She is making good amount of urine but she is incontinent. Her nurse told me that they are keeping the Marinelli catheter to prevent exacerbation of her's grade 4 sacral decubitus ulcer. Reason For Visit: ARF PYELONEPHRITIS SEVERE SEPSIS Physical Exam Vital Signs: Temp Pulse Resp BP Pulse Ox 97.5 F 97 16 124/53 L 99 03/06/18 11:44 03/06/18 11:44 03/06/18 11:44 03/06/18 11:44 03/06/18 11:44 Intake & Output 03/05/18 03/06/18 03/07/18 06:59 06:59 06:59 Intake Total 1720 3445 1050 Output Total 900 1860 Balance 820 1585 1050 Weight 76.3 kg 80.8 kg Exam: General appearance: PRESENT: no acute distress, cooperative, well-developed, well-nourished Head exam: PRESENT: atraumatic, normocephalic Eye exam: PRESENT: conjunctiva pale, PERRLA. ABSENT: scleral icterus Neck exam: ABSENT: JVD Respiratory exam: PRESENT: Diminished breath sounds. ABSENT: crackles, rales, rhonchi, unlabored, wheezes Cardiovascular exam: PRESENT: Regular rate rhythm -+S1, +S2. ABSENT: diastolic murmur, systolic murmur GI/Abdominal exam: PRESENT: normal bowel sounds, soft. ABSENT: guarding, mass, tenderness Extremities exam: ABSENT: No edema Neurological exam: PRESENT: alert, awake, oriented to person, place and time. Skin exam: PRESENT: dry, warm, Results Laboratory Results: 03/06/18 05:56 03/06/18 05:56 03/06/18 03/06/18 05:56 05:56 WBC 8.9 RBC 2.90 L Hgb 8.2 L Hct 25.3 L MCV 87 MCH 28.2 MCHC 32.4 RDW 17.0 H Plt Count 208 Seg Neutrophils % 60.8 Lymphocytes % 33.1 Monocytes % 4.4 Eosinophils % 1.4 Basophils % 0.3 Absolute Neutrophils 5.4 Absolute Lymphocytes 3.0 Absolute Monocytes 0.4 Absolute Eosinophils 0.1 Absolute Basophils 0.0 Sodium 143.7 Potassium 3.6 Chloride 114 H Carbon Dioxide 19 L Anion Gap 11 BUN 32 H Creatinine 1.22 Est GFR ( Amer) 55 L Est GFR (Non-Af Amer) 45 L Glucose 106 Calcium 9.2 03/05/18 03/05/18 03/05/18 03:16 03:16 08:57 Creatine Kinase 373 H 565 H CK-MB (CK-2) 6.20 H Troponin I < 0.012 03/05/18 03/05/18 03/05/18 08:57 16:27 16:27 Creatine Kinase 733 H CK-MB (CK-2) 6.57 H 6.98 H Troponin I < 0.012 0.014 Impressions: Chest X-Ray 03/04/18 20:22 IMPRESSION: No acute cardiopulmonary abnormality. Abdomen/Pelvis CT 03/04/18 21:18 IMPRESSION: No acute intra-abdominal abnormality. Decubitus ulcer over the right sacrum with associated skin thickening but no intra-abdominal/pelvic extension. No reactive osseous changes of the sacrum. Stable left adrenal mass. Left renal atrophy slightly progressed since the prior exam. Minimal bibasilar subsegmental atelectasis. Assessment & Plan - Diagnosis (1) Acute kidney injury superimposed on chronic kidney disease Is this a current diagnosis for this admission?: Yes Plan: This is now resolved. Patient has good urine output. (2) Acute tubular necrosis Is this a current diagnosis for this admission?: Yes (3) Adrenal mass, left Is this a current diagnosis for this admission?: Yes Plan: Workup still pending. This could be followed up as an outpatient. (4) CKD (chronic kidney disease), stage III Is this a current diagnosis for this admission?: Yes (5) UTI (urinary tract infection) Qualifiers: Urinary tract infection type: site unspecified Hematuria presence: without hematuria Qualified Code(s): N39.0 - Urinary tract infection, site not specified Is this a current diagnosis for this admission?: Yes (6) Sepsis Qualifiers: Sepsis type: sepsis due to unspecified organism Qualified Code(s): A41.9 - Sepsis, unspecified organism Is this a current diagnosis for this admission?: Yes (7) Hypotension Qualifiers: Hypotension type: unspecified hypotension type Qualified Code(s): I95.9 - Hypotension, unspecified Is this a current diagnosis for this admission?: Yes Plan: Improved and resolved. (8) Opioid dependence Qualifiers: Substance use status: uncomplicated Qualified Code(s): F11.20 - Opioid dependence, uncomplicated Is this a current diagnosis for this admission?: Yes (9) Sacral decubitus ulcer, stage IV Is this a current diagnosis for this admission?: Yes - Notes Notes: No further recommendation from nephrology standpoint. We will sign off at this time. - Time Time with patient: 15-25 minutes
[2018-03-06] MEDS ORDERED: ATORVASTATIN CALCIUM 40 MG TABLET PO SCH (22:00)
[2018-03-07] MEDS: IPRATROPIUM/ALBUTEROL 0.5-2.5 MG/3 ML AMPUL NEB SCH ×3 (01:01→16:48)
[2018-03-07] MEDS: NORMAL SALINE 1000 ML 1,000 ML IV PRN (04:10)
[2018-03-07] MEDS: GABAPENTIN 300 MG CAPSULE PO SCH ×3 (05:44→17:49)
[2018-03-07] MEDS: HEPARIN SOD (PORCINE) 5,000 UNIT/ML 1 ML SYRINGE SUBCUT SCH ×2 (05:44→14:06)
[2018-03-07 05:52] LABS: ABSOLUTE BASOPHILS # (AUTO) 0.1 10^3/uL (0.0-0.2); ABSOLUTE EOSINOPHILS # (AUTO) 0.2 10^3/uL (0.0-0.6); ABSOLUTE MONOCYTES (AUTO) 0.3 10^3/uL (0.1-1.4); ABSOLUTE NEUT (AUTO) 3.9 10^3/uL (1.7-8.2); BASOPHILS % (AUTO) 0.9 % (0-2); EOSINOPHILS % (AUTO) 3.2 % (0-6); HEMOGLOBIN 8.7 g/dL (12.0-15.5); LYMPHOCYTES % (AUTO) 39.9 % (13-45); MEAN CORPUSCULAR HEMOGLOBIN 27.9 pg (27.0-33.4); MEAN CORPUSCULAR HGB CONC 32.2 g/dL (32.0-36.0); MEAN CORPUSCULAR VOLUME 87 fl (80-97); MONOCYTES % (AUTO) 4.3 % (3-13); PLATELET COUNT 229 10^3/uL (150-450); RED BLOOD COUNT 3.11 10^6/uL (3.72-5.28); RED CELL DISTRIBUTION WIDTH 16.7 % (11.5-14.0); SEGMENTED NEUTROPHILS % (AUTO) 51.7 % (42-78); TOTAL CELLS COUNTED % (AUTO) 100 %; WHITE BLOOD COUNT 7.6 10^3/uL (4.0-10.5)
[2018-03-07] MEDS: CEFTRIAXONE SODIUM 1,000 MG in DEXTROSE 5%-WATER 50 ML IV SCH (09:08)
[2018-03-07] MEDS: OXYCODONE-ACETAMINOPHEN 5-325 MG TABLET PO PRN ×2 (09:08→15:26)
[2018-03-07] MEDS: DOCUSATE SODIUM 100 MG CAPSULE PO SCH ×2 (09:09→17:47)
[2018-03-07] MEDS ORDERED: MULTIVITAMIN PO SCH (10:00)
[2018-03-07] MEDS ORDERED: MULTIVITAMINS W-IRON TABLET, CHEWABLE PO SCH (10:00)
--- NOTE | 2018-03-07 11:01 | PDOC DISCHARGE SUMMARY ---
General - Admit/Disc Date/PCP Admission Date/Primary Care Provider: 03/04/18 23:39 LETA PRIEST, Discharge Date: 03/07/18 - Discharge Diagnosis (1) Adrenal mass, left Is this a current diagnosis for this admission?: Yes (2) Hypotension Is this a current diagnosis for this admission?: Yes (3) Sacral decubitus ulcer, stage IV Is this a current diagnosis for this admission?: Yes (4) Severe sepsis Is this a current diagnosis for this admission?: Yes (6) UTI (urinary tract infection) Is this a current diagnosis for this admission?: Yes - Additional Information Resuscitation Status: Full Code Discharge Diet: Cardiac Discharge Activity: Activity As Tolerated Prescriptions: Levofloxacin [Levaquin 500 mg Tablet] 500 mg PO DAILY #5 tablet Home Medications: Albuterol Sulfate [Proair HFA Inhalation Aerosol 8.5 gm MDI] 2 puff IH Q4HP PRN 03/05/18 Atorvastatin Calcium [Lipitor 40 mg Tablet] 40 mg PO QHS 03/05/18 Gabapentin [Neurontin] 600 mg PO Q6 03/05/18 Multivitamin [Animal Shapes] 1 tab PO DAILY 03/05/18 Oxycodone HCl/Acetaminophen [Percocet 10-325 mg Tablet] 1 tab PO Q8HP PRN Acetaminophen [Tylenol 325 mg Tablet] 650 mg PO Q6HP PRN tablet 03/07/18 Levofloxacin [Levaquin 500 mg Tablet] 500 mg PO DAILY #5 tablet 03/07/18 History of Present Illness History of Present Illness: KAREN MALDONADO is a 57 year old female with a past medical history of COPD with persistent tobacco abuse, obstructive sleep apnea, polypharmacy, chronic pain with opiate dependence, stage III chronic kidney disease, 4.3 cm left adrenal mass, CVA with residual leg weakness with stage IV sacral decubiti. Patient presents to the emergency room with severe distress, diaphoresis and shaking stating recent treatment for a urinary tract infection. She is found to have severe sepsis, hypotension 70 over palp, pyelonephritis with metabolic acidosis acute on chronic renal failure. CT imaging is negative for obstruction and she is referred to the hospitalist for admission. She denies chest pain nausea vomiting palpitations or shortness of breath. Hospital Course Hospital Course: Hypotension Resolved. Likely from severe sepsis. Severe sepsis Secondary to UTI. Patient presented with dysuria, urinary frequency, chills, tachycardia, hypotension, leukocytosis and acute renal failure. UA was also consistent with UTI. She received IV fluids. She was started empirically on vancomycin and Rocephin. Continued ceftriaxone and stopped vancomycin. Urine cultures positive for Pseudomonas and wound culture positive for gram-negative rods. Patient will be discharged on oral Levaquin. Acute kidney injury superimposed on chronic kidney disease Non-oliguric. Likely a combination of pre renal SEB and acute tubular necrosis from hypotension and sepsis. Creatinine has significantly improved after IV fluids. Sacral decubitus ulcer, stage IV Chronic ulcer does not appear infected. Continue daily wound dressing. Culture shows normal lorri and gram-negative rods. Oral Levaquin on discharge. Adrenal mass, left Stable size. Follow-up outpatient. urinary tract infection Urine culture positive for pseudomonas aeruginosa. Discharged on oral Levaquin. Patient is okay for discharge to home with home care and wound care. Continue Levaquin for 5 more days. Follow-up with his primary care physician and wound care. We stopped lisinopril due to renal failure. Her blood pressure was actually okay without lisinopril and even with IV fluids. Physical Exam Vital Signs: Temp Pulse Resp BP Pulse Ox 98.4 F 92 16 148/62 H 92 03/07/18 04:09 03/07/18 07:00 03/06/18 16:24 03/07/18 04:09 03/07/18 04:09 Intake & Output 03/06/18 03/07/18 03/08/18 06:59 06:59 06:59 Intake Total 3445 3439 Output Total 1860 3500 Balance 1585 -61 Weight 178 lb 2.136 oz 188 lb 4.396 oz General appearance: PRESENT: no acute distress, cooperative Head exam: PRESENT: atraumatic, normocephalic Eye exam: PRESENT: EOMI. ABSENT: conjunctival injection Mouth exam: PRESENT: neck supple Neck exam: ABSENT: meningismus Respiratory exam: PRESENT: clear to auscultation abraham. ABSENT: accessory muscle use Cardiovascular exam: PRESENT: RRR Pulses: PRESENT: normal carotid pulses Neurological exam: PRESENT: alert, awake, oriented to person, oriented to place , oriented to time, oriented to situation Results Laboratory Results: 03/07/18 05:00 03/06/18 05:56 03/07/18 05:00 WBC 7.6 RBC 3.11 L Hgb 8.7 L Hct 27.0 L MCV 87 MCH 27.9 MCHC 32.2 RDW 16.7 H Plt Count 229 Seg Neutrophils % 51.7 Lymphocytes % 39.9 Monocytes % 4.3 Eosinophils % 3.2 Basophils % 0.9 Absolute Neutrophils 3.9 Absolute Lymphocytes 3.0 Absolute Monocytes 0.3 Absolute Eosinophils 0.2 Absolute Basophils 0.1 03/05/18 03/05/18 03/05/18 03:16 03:16 08:57 Creatine Kinase 373 H 565 H CK-MB (CK-2) 6.20 H Troponin I < 0.012 03/05/18 03/05/18 03/05/18 08:57 16:27 16:27 Creatine Kinase 733 H CK-MB (CK-2) 6.57 H 6.98 H Troponin I < 0.012 0.014 Impressions: Chest X-Ray 03/04/18 20:22 IMPRESSION: No acute cardiopulmonary abnormality. Abdomen/Pelvis CT 03/04/18 21:18 IMPRESSION: No acute intra-abdominal abnormality. Decubitus ulcer over the right sacrum with associated skin thickening but no intra-abdominal/pelvic extension. No reactive osseous changes of the sacrum. Stable left adrenal mass. Left renal atrophy slightly progressed since the prior exam. Minimal bibasilar subsegmental atelectasis. Qualifiers - * PATIENT BEING DISCHARGED WITH ANY OF THE FOLLOWING DIAGNOSIS: No Plan Time Spent: Greater than 30 Minutes - 35 minutes
[2018-03-07 21:50] VITALS: BP 155/76
[2018-03-08 13:38] LABS: METANEPHRINE URINE 235 ug/L (Undefined); NORMETANEPHRINE URINE 340 ug/L (Undefined)
[2018-03-09 07:17] LABS: METANEPHRINE URINE 24HR 461 ug/24 hr (45-290); NORMETANEPHRINE URINE 24HR 666 ug/24 hr (82-500)
[2018-03-09 15:38] LABS: NORMETANEPHRINE 32 pg/mL (0-145)
[2018-03-10 07:41] LABS: CORTISOL FREE URINE 17 ug/L (Undefined)
[2018-03-10 16:41] LABS: METANEPHRINE 50 pg/mL (0-62)
[2018-03-10 16:42] LABS: ALDOSTERONE RENIN RATIO 2 <.1 (0.0-30.0); RENIN ACTIVITY 8.703 ng/mL/hr (0.167-5.38)
[2018-03-10 16:42] LABS: CORTISOL FREE URINE 24 HR 2 33 ug/24 hr (0-50)
== END 2018-03-07 22:54 | disposition home health service (06) | DRG 871 ==
LOC: ER 20:20 → EH 23:39 → ICU 03-05 02:10 → 3S 03-05 23:15
PROVIDERS: ADMIT Internal Medicine; ATTEND Internal Medicine
PROC: 5A09457 Assistance with Respiratory Ventilation, 24-96 Consecutive Hours, Continuous Positive Airway Pressure (ICD-10-PCS; principal; 2018-03-04)
PROC: 3E0F73Z Introduction of Anti-inflammatory into Respiratory Tract, Via Natural or Artificial Opening (ICD-10-PCS; 2018-03-05)
DX: A41.9 Sepsis, unspecified organism (principal); L89.154 Pressure ulcer of sacral region, stage 4; N17.0 Acute kidney failure with tubular necrosis; F11.20 Opioid dependence, uncomplicated; N12 Tubulo-interstitial nephritis, not specified as acute or chronic; R65.20 Severe sepsis without septic shock; E27.9 Disorder of adrenal gland, unspecified; J44.9 Chronic obstructive pulmonary disease, unspecified; G47.33 Obstructive sleep apnea (adult) (pediatric); G89.29 Other chronic pain; N18.3 Chronic kidney disease, stage 3 (moderate); B96.20 Unspecified Escherichia coli [E. coli] as the cause of diseases classified elsewhere; B96.5 Pseudomonas (aeruginosa) (mallei) (pseudomallei) as the cause of diseases classified elsewhere; E78.00 Pure hypercholesterolemia, unspecified; I12.9 Hypertensive chronic kidney disease with stage 1 through stage 4 chronic kidney disease, or unspecified chronic kidney disease; M19.90 Unspecified osteoarthritis, unspecified site; F32.9 Major depressive disorder, single episode, unspecified; I95.9 Hypotension, unspecified; F17.210 Nicotine dependence, cigarettes, uncomplicated; M54.9 Dorsalgia, unspecified; I69.341 Monoplegia of lower limb following cerebral infarction affecting right dominant side; Z79.899 Other long term (current) drug therapy; Z90.49 Acquired absence of other specified parts of digestive tract; Z90.710 Acquired absence of both cervix and uterus; Z82.49 Family history of ischemic heart disease and other diseases of the circulatory system; Z83.6 Family history of other diseases of the respiratory system
CPT/HCPCS: 36415; 71045; 74176; 80048; 80053; 80307; 81001; 82088; 82530; 82533; 82550; 82553; 82570; 82803; 82962; 83605; 83835; 84244; 84484; 85025; 85610; 87040; 87070; 87077; 87086; 87088; 87186; 87205; 93005; 93010; 94660; 96361; 96365; 96367; 99291; 99292; J0692; J0696; J1644; J1720; J3010; J3370; J3490; J7030; J7120; J7620

== ENCOUNTER 2018-04-02 13:20 | Emergency (ER) | payer MEDICAID ==
[2018-04-02] MEDS ORDERED: METOCLOPRAMIDE HCL INJ/PF 10 MG/2 ML SDV IV ONE ×2 (14:53→17:15)
[2018-04-02] MEDS ORDERED: DIPHENHYDRAMINE HCL 50 MG/ML VIAL IV ONE (14:53)
[2018-04-02] MEDS ORDERED: MORPHINE SULFATE 10 MG/ML INJ IV ONE (14:55)
[2018-04-02] MEDS ORDERED: RINGERS SOLUTION,LACTATED 1,000 ML IV ONE (14:58)
--- NOTE | 2018-04-02 15:02 | ER Document Report ---
ED General - General Chief Complaint: Back Pain Stated Complaint: DIARRHEA, BACK PAIN Time Seen by Provider: 04/02/18 14:44 Mode of Arrival: Medic Information source: Patient, [facility] Records Notes: 57-year-old female with hypertension, hyperlipidemia, COPD, previous CVA, renal insufficiency, chronic back pain currently in pain management taking Percocet presents with complaint of abdominal pain, nausea, vomiting and diarrhea that started 1 day prior to arrival. Patient states that she has had multiple episodes of diarrhea. Her abdominal pain is generalized, described as cramping. Patient also complaining of back pain that is also generalized. Patient denies any blood in her stool or emesis. Patient has had prior similar symptoms. Patient has a known sacral wound that is being cared for. She denies any fever, chills, chest pain, shortness of breath, dysuria, hematuria. Patient surgical history includes cholecystectomy, hysterectomy. Patient has had sick contacts with a daughter with similar symptoms. TRAVEL OUTSIDE OF THE [place] IN LAST 30 DAYS: No - HPI Onset: Just prior to arrival Onset/Duration: Sudden Quality of pain: Cramping Severity: Moderate Associated symptoms: Diarrhea, Nausea, Vomiting Exacerbated by: Movement, Food Relieved by: Denies Similar symptoms previously: Yes Recently seen / treated by doctor: Yes - Related Data Allergies/Adverse Reactions: No Known Allergies Allergy (Verified 03/04/18 22:53) Past Medical History - General Information source: Patient, [facility] Records - Social History Smoking Status: Current Every Day Smoker Cigarette use (# per day): Yes - 10 Chew tobacco use (# tins/day): No Smoking Education Provided: Yes - Smoking cessation counseling was provided for 4 minutes at the bedside Frequency of alcohol use: None Drug Abuse: None Lives with: Spouse/Significant other Family History: COPD, Hypertension Patient has suicidal ideation: No Patient has homicidal ideation: No - Past Medical History Cardiac Medical History: Reports: Hx Hypercholesterolemia, Hx Hypertension Pulmonary Medical History: Reports: Hx Bronchitis, Hx COPD, Hx Pneumonia Renal/ Medical History: Denies: Hx Peritoneal Dialysis Musculoskeletal Medical History: Reports Hx Arthritis Psychiatric Medical History: Reports: Hx Depression Past Surgical History: Reports: Hx Cholecystectomy, Hx Hysterectomy, Hx Tubal Ligation - Immunizations Hx Diphtheria, Pertussis, Tetanus Vaccination: Yes Hx Pneumococcal Vaccination: 01/29/15 Review of Systems - Review of Systems Notes: REVIEW OF SYSTEMS: CONSTITUTIONAL : Denies fever, chills, or sweats. Denies recent illness. Denies weight loss, recent hospitalizations. EENT: Denies visual changes, eye pain. Denies sore throat, oral lesions, difficulty swallowing. CARDIOVASCULAR: Denies chest pain. Denies palpitations. Denies lower extremity edema. RESPIRATORY: Denies cough. Denies shortness of breath, wheezing. GASTROINTESTINAL: Denies blood in vomitus, stools, or per rectum. Denies black, tarry stools. Denies constipation. GENITOURINARY: Denies difficulty urinating, painful urination, frequency, blood in urine, or vaginal discharge. MUSCULOSKELETAL: Denies back or neck pain or stiffness. Denies joint pain or swelling. SKIN: Denies rash, lesions or sores. HEMATOLOGIC : Denies easy bruising or bleeding. LYMPHATIC: Denies swollen glands. NEUROLOGICAL: Denies confusion or altered mental status. Denies loss of consciousness. Denies dizziness or lightheadedness. Denies headache. Denies weakness or paralysis. Denies problems difficulty with ambulation, slurred speech. Denies sensory loss, numbness, or tingling. Denies seizures. PSYCHIATRIC: Denies anxiety or stress. Denies depression, suicidal ideation, or homicidal ideation. Denies visual or auditory hallucinations. Physical Exam - Vital signs Vitals: Pulse BP Pulse Ox 115 H 131/84 H 97 04/02/18 13:25 04/02/18 13:25 04/02/18 13:25 - Notes Notes: PHYSICAL EXAMINATION: GENERAL: Ill-appearing, mild distress. HEAD: Atraumatic, normocephalic. EYES: Pupils equal round and reactive to light, extraocular movements intact, conjunctiva are normal. ENT: Nares patent, oropharynx clear without exudates. Moist mucous membranes. NECK: Normal range of motion, supple without lymphadenopathy LUNGS: Breath sounds clear to auscultation bilaterally and equal. No wheezes rales or rhonchi. HEART: Tachycardic, regular rhythm ABDOMEN: Generalized abdominal pain with palpation. No guarding, no rebound. No masses appreciated. Female : deferred Musculoskeletal: Normal range of motion, no pitting or edema. No cyanosis. NEUROLOGICAL: Cranial nerves grossly intact. Normal speech, normal gait. Normal sensory, motor exams PSYCH: Normal mood, normal affect. SKIN: Warm, Dry, normal turgor, no rashes or lesions noted. Course - Re-evaluation Re-evalutation: Acute Abdomen Series 04/02/18 14:57 IMPRESSION: NO RADIOGRAPHIC EVIDENCE FOR ACUTE ABDOMINAL DISEASE. Laboratory 04/02/18 04/02/18 16:07 16:07 WBC 13.2 H RBC 5.18 Hgb 14.2 Hct 43.8 MCV 85 MCH 27.5 MCHC 32.5 RDW 15.7 H Plt Count 263 Seg Neutrophils % 83.8 H Lymphocytes % 13.1 Monocytes % 2.5 L Eosinophils % 0.2 Basophils % 0.4 Absolute Neutrophils 11.1 H Absolute Lymphocytes 1.7 Absolute Monocytes 0.3 Absolute Eosinophils 0.0 Absolute Basophils 0.1 Sodium 140.9 Potassium 5.0 Chloride 104 Carbon Dioxide 25 Anion Gap 12 BUN 30 H Creatinine 1.24 Est GFR ( Amer) 54 L Est GFR (Non-Af Amer) 44 L Glucose 110 Calcium 11.5 H Total Bilirubin 0.4 Direct Bilirubin 0.3 Neonat Total Bilirubin Not Reportable Neonat Direct Bilirubin Not Reportable Neonat Indirect Bili Not Reportable AST 16 ALT 7 L Alkaline Phosphatase 131 H Total Protein 9.0 H Albumin 4.6 Lipase 70.9 04/02/18 14:59 [id number] female with 1 day of nausea, vomiting abdominal pain and diarrhea. Patient evaluated. Vital signs were reviewed. Patient is tachycardic but afebrile Previous medical records and nursing notes reviewed. Patient appears ill, mildly. Exam Findings: Generalized abdominal pain Lab Findings: CBC is with mild leukocytosis. CMP shows no electrolte abnormalities and normal renal function. LFTs WNL. UA not consistent with UTI. Patient Interventions/Monitor: IV fluids, Reglan, Benadryl, morphine. Revaluation: Abdominal pain resolved, patient resting comfortably. No episodes of vomiting. MDM: Patient's exam consistent with gastroenteritis. 04/02/18 17:43 Patient reevaluated and is resting comfortably. 04/03/18 00:14 Patient was evaluated and treated as appropriate for the patient's presenting symptoms and complaint, with consideration of any critical or life threatening conditions that may be associated with their obtained history and exam as noted above. All results were discussed with patient and her . Patient provided the opportunity to ask questions, and express concerns. Patient was educated on treatments based on their presumed diagnosis as noted above. At this time we will discharge the patient with return precautions and follow-up recommendations. Verbal discharge instructions given a the bedside. Medication warnings reviewed. Patient is in agreement with this plan and has verbalized understanding of return precautions. After careful consideration I feel that that patient can be safely discharged from the emergency department, they were advised to followup with a primary care physician in 2-3 days. Dictation on this chart was performed using voice recognition software and may result in unintended grammatical, spelling, syntax or errors. - Vital Signs Vital signs: Temp Pulse Resp BP Pulse Ox 98.9 F 89 20 108/66 97 04/02/18 21:40 04/02/18 21:40 04/02/18 21:40 04/02/18 21:40 04/02/18 21:40 - Laboratory Result Diagrams: 04/02/18 16:07 04/02/18 16:07 Laboratory results interpreted by me: 04/02/18 04/02/18 04/02/18 16:07 16:07 18:59 WBC 13.2 H RDW 15.7 H Seg Neutrophils % 83.8 H Monocytes % 2.5 L Absolute Neutrophils 11.1 H BUN 30 H Est GFR ( Amer) 54 L Est GFR (Non-Af Amer) 44 L Calcium 11.5 H ALT 7 L Alkaline Phosphatase 131 H Total Protein 9.0 H Urine Protein 30 H - Diagnostic Test Radiology reviewed: Image reviewed, Reports reviewed Discharge - Discharge Clinical Impression: Nausea vomiting and diarrhea, Generalized abdominal pain Chronic back pain Qualifiers: Back pain location: back pain in unspecified location Back pain laterality: unspecified Qualified Code(s): M54.9 - Dorsalgia, unspecified Condition: Good Disposition: HOME, SELF-CARE Instructions: Abdominal Pain ([facility]), Prescribed Antidiarrhea Medications ([facility]), Diarrhea, Nonspecific ([facility]), Intravenous (IV) Fluids ([facility]), Viral Syndrome ([facility]), Vomiting ([facility]) Additional Instructions: Your symptoms are likely due to a viral illness and should resolve in the next several days. You can take [id number] loperamide also known as Imodium as needed for diarrhea per box instructions. Continue to stay hydrated with plenty of solution such as Gatorade or Pedialyte. You are being prescribed Zofran to take as needed for nausea and vomiting. Please return if you develop severe abdominal pain, pass out, become unable to tolerate any oral fluids for 12 more hours, or any other symptoms that are concerning to you. Prescriptions: Dicyclomine HCl [Bentyl 20 mg Tablet] 20 mg PO QID #12 tablet Loperamide HCl [Loperamide] 2 mg PO Q8H PRN #12 tablet PRN Reason: Diarrhea Forms: Smoking Cessation Education Referrals: LETA PRIEST, [Primary Care Provider] - Follow up as needed
--- NOTE | 2018-04-02 15:37 | RADIOLOGY REPORT (SQ) ---
EXAM DESCRIPTION: ACUTE ABDOMEN SERIES COMPLETED DATE/TIME: 04/02/2018 3:22 pm REASON FOR STUDY: Abdominal pain COMPARISON: 10/31/2017 NUMBER OF VIEWS: Three views. TECHNIQUE: Frontal chest, supine abdomen and upright/decubitus abdomen radiographic images acquired. LIMITATIONS: None. FINDINGS: CHEST: Lungs clear of infiltrates. FREE AIR: None. No abnormal gas collections. BOWEL GAS PATTERN: Nonobstructive pattern. No dilated loops or air fluid levels. CALCIFICATIONS: No suspicious calcifications. HARDWARE: Aortic endograft. SOFT TISSUES: No gross mass or suggestion of organomegaly. BONES: No acute fracture. No worrisome bone lesions. OTHER: No other significant finding. IMPRESSION: NO RADIOGRAPHIC EVIDENCE FOR ACUTE ABDOMINAL DISEASE. TECHNICAL DOCUMENTATION: JOB ID: [id number] [employer]- All Rights Reserved Reading location - IP/workstation name: [email or web address]
[2018-04-02 16:23] LABS: ABSOLUTE BASOPHILS # (AUTO) 0.1 10^3/uL (0.0-0.2); ABSOLUTE LYMPHOCYTES (AUTO) 1.7 10^3/uL (0.5-4.7); ABSOLUTE MONOCYTES (AUTO) 0.3 10^3/uL (0.1-1.4); ABSOLUTE NEUT (AUTO) 11.1 10^3/uL (1.7-8.2); BASOPHILS % (AUTO) 0.4 % (0-2); EOSINOPHILS % (AUTO) 0.2 % (0-6); HEMATOCRIT 43.8 % (36.0-47.0); HEMOGLOBIN 14.2 g/dL (12.0-15.5); LYMPHOCYTES % (AUTO) 13.1 % (13-45); MEAN CORPUSCULAR HEMOGLOBIN 27.5 pg (27.0-33.4); MEAN CORPUSCULAR HGB CONC 32.5 g/dL (32.0-36.0); MEAN CORPUSCULAR VOLUME 85 fl (80-97); MONOCYTES % (AUTO) 2.5 % (3-13); PLATELET COUNT 263 10^3/uL (150-450); RED BLOOD COUNT 5.18 10^6/uL (3.72-5.28); RED CELL DISTRIBUTION WIDTH 15.7 % (11.5-14.0); SEGMENTED NEUTROPHILS % (AUTO) 83.8 % (42-78); TOTAL CELLS COUNTED % (AUTO) 100 %; WHITE BLOOD COUNT 13.2 10^3/uL (4.0-10.5)
[2018-04-02 16:39] LABS: ALANINE AMINOTRANSFERASE 7 U/L (9-52); ALBUMIN 4.6 g/dL (3.5-5.0); ALKALINE PHOSPHATASE 131 U/L (38-126); ANION GAP 12 (5-19); ASPARTATE AMINO TRANSFERASE 16 U/L (14-36); BILIRUBIN,DIRECT 0.3 mg/dL (0.0-0.4); BILIRUBIN,TOTAL 0.4 mg/dL (0.2-1.3); BLOOD UREA NITROGEN 30 mg/dL (7-20); CALCIUM 11.5 mg/dL (8.4-10.2); CARBON DIOXIDE 25 mmol/L (22-30); CHLORIDE 104 mmol/L (98-107); GLUCOSE 110 mg/dL (75-110); LIPASE 70.9 U/L (23-300); SODIUM 140.9 mmol/L (137-145)
[2018-04-02] MEDS ORDERED: NORMAL SALINE 1000 ML 1,000 ML IV ONE (17:41)
[2018-04-02] MEDS ORDERED: LOPERAMIDE HCL 2 MG CAPSULE PO ONE (18:53)
[2018-04-02 20:06] LABS: AMORPHOUS SEDIMENT,URINE TRACE /HPF; APPEARANCE,URINE TURBID; BILIRUBIN,URINE NEGATIVE (NEGATIVE); COLOR,URINE YELLOW; GLUCOSE, URINE NEGATIVE (NEGATIVE); KETONES,URINE NEGATIVE (NEGATIVE); LEUKOCYTE ESTERASE,URINE NEGATIVE (NEGATIVE); NITRITE,URINE NEGATIVE (NEGATIVE); PROTEIN,URINE 30 mg/dL (NEGATIVE); URINE SPECIFIC GRAVITY 1.023; UROBILINOGEN,URINE NEGATIVE mg/dL (<2.0)
[2018-04-02] MEDS ORDERED: ONDANSETRON ODT 4 MG TAB (6 TAB/ER DISP) PO PRN (20:17)
[2018-04-02 21:41] VITALS: BP 108/66
== END 2018-04-02 21:47 | disposition home or self-care (01) ==
LOC: ER 13:20
DX: R19.7 Diarrhea, unspecified (principal); R11.2 Nausea with vomiting, unspecified; R10.84 Generalized abdominal pain; M54.9 Dorsalgia, unspecified; I10 Essential (primary) hypertension; F17.210 Nicotine dependence, cigarettes, uncomplicated; E78.00 Pure hypercholesterolemia, unspecified; J44.9 Chronic obstructive pulmonary disease, unspecified; Z90.49 Acquired absence of other specified parts of digestive tract; Z90.710 Acquired absence of both cervix and uterus; Z86.73 Personal history of transient ischemic attack (TIA), and cerebral infarction without residual deficits
CPT/HCPCS: 99406; 99285; 96361; 96374; 96375; 36415; 87086; 83690; 85025; 80053; 81001; 74022; J1200; J3490; J2765; J2270; J7030; J7120

== ENCOUNTER 2018-04-08 15:40 | Inpatient (IN) | payer MEDICAID ==
--- NOTE | 2018-04-08 16:21 | ER Document Report ---
ED General - General Stated Complaint: ABDOMINAL PAIN Time Seen by Provider: 04/08/18 15:46 TRAVEL OUTSIDE OF THE [place] IN LAST 30 DAYS: No - HPI Notes: Patient is a 57-year-old female that presents to the emergency department for chief complaint of abdominal pain. Patient's family called EMS when patient was complaining of abdominal pain. Currently patient is denying having any symptoms. EMS states that when they arrived she had respiratory rate of 6 and end-tidal CO2 of 50. Patient has Percocet is a medication for her chronic pain. She states she only took 1 Percocet. Patient reportedly had improvement of her respiratory status after receiving Narcan. Patient's family member states that she did take 1 or 2 of his Xanax and 10 mg of his OxyContin. Past Medical History: Retention, hyperlipidemia, stroke Past Surgical History: Reviewed in chart Social History: Daily tobacco. Denies drug and alcohol Family History: Reviewed and noncontributory for presenting illness Allergies: Reviewed, see documented allergy list. REVIEW OF SYSTEMS: CONSTITUTIONAL : No fever No chills No diaphoresis No recent illness EENT: No vision changes No congestion No sore throat CARDIOVASCULAR: No chest pain No palpitations RESPIRATORY: No shortness of breath No cough No difficulty breathing GASTROINTESTINAL: abdominal pain No nausea No vomiting No diarrhea GENITOURINARY: No dysuria No hematuria No difficulty urinating MUSCULOSKELETAL: No back pain No leg pain No arm pain SKIN: No rashes No lesions LYMPHATIC: No swollen, enlarged glands. NEUROLOGICAL: No lightheadedness No headache No weakness No paresthesias PSYCHIATRIC: No anxiety No depression PHYSICAL EXAMINATION: Vital signs reviewed, nursing noted reviewed. GENERAL: Well-appearing, and in no acute distress. HEAD: Atraumatic, normocephalic. EYES: Eyes appear normal, extraocular movements intact, sclera mildly icteric, conjunctiva are normal. ENT: nares patent, oropharynx clear without exudates. Moist mucous membranes. NECK: Normal range of motion, supple without lymphadenopathy LUNGS: Breath sounds clear to auscultation bilaterally and equal. No wheezes rales or rhonchi. HEART: Regular rate and rhythm without murmurs ABDOMEN: Distended, soft, nontender. no rebound, guarding, or rigidity. No masses appreciated. EXTREMITIES: Nontender, good range of motion, no pitting or edema. NEUROLOGICAL: Decreased sensation to right upper and lower extremity. Right lower extremity paralysis. Minimal movement of left lower extremity PSYCH: Normal mood, normal affect. SKIN: Warm, Dry, normal turgor, mildly jaundiced - Related Data Allergies/Adverse Reactions: No Known Allergies Allergy (Verified 04/08/18 16:49) Past Medical History - Social History Smoking Status: Current Every Day Smoker Family History: COPD, Hypertension - Past Medical History Cardiac Medical History: Reports: Hx Hypercholesterolemia, Hx Hypertension Pulmonary Medical History: Reports: Hx Bronchitis, Hx COPD, Hx Pneumonia Renal/ Medical History: Denies: Hx Peritoneal Dialysis Musculoskeletal Medical History: Reports Hx Arthritis Psychiatric Medical History: Reports: Hx Depression Past Surgical History: Reports: Hx Cholecystectomy, Hx Hysterectomy, Hx Tubal Ligation - Immunizations Hx Diphtheria, Pertussis, Tetanus Vaccination: Yes Hx Pneumococcal Vaccination: 01/29/15 Physical Exam - Vital signs Vitals: Resp 13 04/08/18 15:47 Course - Re-evaluation Re-evalutation: 04/08/18 16:21 Vitals reviewed. Nursing notes reviewed. Patient is awake and conversational. She is the since receiving Narcan by EMS. 04/08/18 17:33 Patient reevaluated and was sleeping. While sleeping her respiratory rate was 5. She was given another 2 mg of IV Narcan. Which did improve her mentation and respirations. ABG shows hypercapnic respiratory acidosis with hypoxia. Patient has elevated BUN and creatinine which on chart review is not new for her. She has a normal potassium. Her chest x-ray is negative for acute process. Patient has no LFT derangements and a normal total bili. Urinalysis is positive for infection. Patient is meeting sepsis criteria. She has a normal lactate and is not in severe sepsis or septic shock. She will receive Rocephin for her urinary tract infection. She received 500 mL's of LR by EMS and another 500 mL's normal saline in the emergency room. The amount of medication that patient took at home is questionable and with oral medicines having a longer duration of effectiveness she is requiring repeat dosing of Narcan. Patient will be admitted to the hospital for further medical management. Case discussed with Dr. Barnard who accepted admission. Patient and family in agreement with this plan. Laboratory 04/08/18 04/08/18 04/08/18 16:00 16:00 16:00 WBC 14.5 H RBC 4.06 Hgb 11.0 L Hct 34.4 L MCV 85 MCH 27.2 MCHC 32.1 RDW 16.0 H Plt Count 294 Seg Neutrophils % 60.5 Lymphocytes % 32.7 Monocytes % 4.4 Eosinophils % 1.8 Basophils % 0.6 Absolute Neutrophils 8.8 H Absolute Lymphocytes 4.8 H Absolute Monocytes 0.6 Absolute Eosinophils 0.3 Absolute Basophils 0.1 PT 13.3 INR 0.96 APTT 32.6 Carbonic Acid HCO3/H2CO3 Ratio ABG pH ABG pCO2 ABG pO2 ABG HCO3 ABG Total CO2 ABG O2 Saturation ABG Base Excess FiO2 Sodium 135.4 L Potassium 5.0 Chloride 101 Carbon Dioxide 21 L Anion Gap 13 BUN 43 H Creatinine 2.25 H Est GFR ( Amer) 27 L Est GFR (Non-Af Amer) 22 L Glucose 84 Lactic Acid Calcium 10.5 H Total Bilirubin 0.5 Direct Bilirubin 0.2 Neonat Total Bilirubin Not Reportable Neonat Direct Bilirubin Not Reportable Neonat Indirect Bili Not Reportable AST 16 ALT 18 Alkaline Phosphatase 109 Troponin I Total Protein 7.3 Albumin 4.1 Lipase 65.7 04/08/18 04/08/18 04/08/18 16:00 16:00 16:20 WBC RBC Hgb Hct MCV MCH MCHC RDW Plt Count Seg Neutrophils % Lymphocytes % Monocytes % Eosinophils % Basophils % Absolute Neutrophils Absolute Lymphocytes Absolute Monocytes Absolute Eosinophils Absolute Basophils PT INR APTT Carbonic Acid 1.64 H HCO3/H2CO3 Ratio 14:1 ABG pH 7.27 L ABG pCO2 54.6 H ABG pO2 56.7 L ABG HCO3 24.5 H ABG Total CO2 26.1 H ABG O2 Saturation 85.1 L ABG Base Excess -3.4 FiO2 2L Sodium Potassium Chloride Carbon Dioxide Anion Gap BUN Creatinine Est GFR ( Amer) Est GFR (Non-Af Amer) Glucose Lactic Acid 1.4 Calcium Total Bilirubin Direct Bilirubin Neonat Total Bilirubin Neonat Direct Bilirubin Neonat Indirect Bili AST ALT Alkaline Phosphatase Troponin I < 0.012 Total Protein Albumin Lipase Chest X-Ray 04/08/18 16:13 IMPRESSION: NO ACUTE RADIOGRAPHIC FINDING IN THE CHEST. 04/08/18 17:51 - Vital Signs Vital signs: Temp Pulse Resp BP Pulse Ox 98.5 F 110 H 23 H 94/58 L 100 04/08/18 16:32 04/08/18 16:32 04/08/18 17:28 04/08/18 17:28 04/08/18 17:28 - Laboratory Result Diagrams: 04/08/18 16:00 04/08/18 16:00 Laboratory results interpreted by me: 04/08/18 04/08/18 04/08/18 16:00 16:00 16:20 WBC 14.5 H Hgb 11.0 L Hct 34.4 L RDW 16.0 H Absolute Neutrophils 8.8 H Absolute Lymphocytes 4.8 H Carbonic Acid 1.64 H ABG pH 7.27 L ABG pCO2 54.6 H ABG pO2 56.7 L ABG HCO3 24.5 H ABG Total CO2 26.1 H ABG O2 Saturation 85.1 L Sodium 135.4 L Carbon Dioxide 21 L BUN 43 H Creatinine 2.25 H Est GFR ( Amer) 27 L Est GFR (Non-Af Amer) 22 L Calcium 10.5 H Urine Protein Urine Blood Ur Leukocyte Esterase 04/08/18 17:15 WBC Hgb Hct RDW Absolute Neutrophils Absolute Lymphocytes Carbonic Acid ABG pH ABG pCO2 ABG pO2 ABG HCO3 ABG Total CO2 ABG O2 Saturation Sodium Carbon Dioxide BUN Creatinine Est GFR ( Amer) Est GFR (Non-Af Amer) Calcium Urine Protein 30 H Urine Blood SMALL H Ur Leukocyte Esterase LARGE H - EKG Interpretation by Me Additional EKG results interpreted by me: 04/08/18 16:21 Interpreted by myself 1552: Sinus tachycardia, rate 118, normal axis, no ectopy, no STEMI, no change from 03/04/18 Critical Care Note - Critical Care Note Total time excluding time spent on procedures (mins): 35 Comments: Patient requiring multiple re-evaluations and re-dosing of Narcan for continued respiratory suppression. She is acidotic, hypercapnic, and hypoxic. Time spent interpreting lab work as well as discussing her care with family and patient. Patient has potential for further respiratory decompensation. Discharge - Discharge Clinical Impression: Respiratory acidosis, Hypoxia Opiate overdose Qualifiers: Encounter type: initial encounter Injury intent: accidental or unintentional Qualified Code(s): T40.601A - Poisoning by unspecified narcotics, accidental (unintentional), initial encounter Hypercapnic respiratory failure Qualifiers: Chronicity: acute Qualified Code(s): J96.02 - Acute respiratory failure with hypercapnia UTI (urinary tract infection) Qualifiers: Urinary tract infection type: site unspecified Hematuria presence: with hematuria Qualified Code(s): N39.0 - Urinary tract infection, site not specified Sepsis Qualifiers: Sepsis type: sepsis due to unspecified organism Qualified Code(s): A41.9 - Sepsis, unspecified organism Condition: Stable Disposition: ADMITTED INPATIENT Admitting Provider: Hospitalist Unit Admitted: IMCU Referrals: LETA PRIEST DO [Primary Care Provider] - Follow up as needed
[2018-04-08 16:25] LABS: ABSOLUTE BASOPHILS # (AUTO) 0.1 10^3/uL (0.0-0.2); ABSOLUTE EOSINOPHILS # (AUTO) 0.3 10^3/uL (0.0-0.6); ABSOLUTE LYMPHOCYTES (AUTO) 4.8 10^3/uL (0.5-4.7); ABSOLUTE MONOCYTES (AUTO) 0.6 10^3/uL (0.1-1.4); ABSOLUTE NEUT (AUTO) 8.8 10^3/uL (1.7-8.2); BASOPHILS % (AUTO) 0.6 % (0-2); EOSINOPHILS % (AUTO) 1.8 % (0-6); HEMATOCRIT 34.4 % (36.0-47.0); LYMPHOCYTES % (AUTO) 32.7 % (13-45); MEAN CORPUSCULAR HEMOGLOBIN 27.2 pg (27.0-33.4); MEAN CORPUSCULAR HGB CONC 32.1 g/dL (32.0-36.0); MEAN CORPUSCULAR VOLUME 85 fl (80-97); MONOCYTES % (AUTO) 4.4 % (3-13); PLATELET COUNT 294 10^3/uL (150-450); RED BLOOD COUNT 4.06 10^6/uL (3.72-5.28); SEGMENTED NEUTROPHILS % (AUTO) 60.5 % (42-78); TOTAL CELLS COUNTED % (AUTO) 100 %; WHITE BLOOD COUNT 14.5 10^3/uL (4.0-10.5)
[2018-04-08 16:38] LABS: ARTERIAL BLOOD BASE EXCESS -3.4 mmol/L; ARTERIAL BLOOD H2CO3 1.64 mmol/L (1.05-1.35); ARTERIAL BLOOD HCO3 24.5 mmol/L (20-24); ARTERIAL BLOOD O2 SATURATION 85.1 % (94-98); ARTERIAL BLOOD PCO2 54.6 mmHg (35-45); ARTERIAL BLOOD PH 7.27 (7.35-7.45); ARTERIAL BLOOD PO2 56.7 mmHg (80-100); ARTERIAL BLOOD TOTAL CO2 26.1 mmol/L (21-25)
[2018-04-08 16:40] LABS: INTERNATIONAL RATION (INR) 0.96; PROTHROMBIN TIME 13.3 SEC (11.4-15.4)
[2018-04-08 16:41] LABS: ALANINE AMINOTRANSFERASE 18 U/L (9-52); ALBUMIN 4.1 g/dL (3.5-5.0); ALKALINE PHOSPHATASE 109 U/L (38-126); ANION GAP 13 (5-19); ASPARTATE AMINO TRANSFERASE 16 U/L (14-36); BILIRUBIN,DIRECT 0.2 mg/dL (0.0-0.4); BILIRUBIN,TOTAL 0.5 mg/dL (0.2-1.3); BLOOD UREA NITROGEN 43 mg/dL (7-20); CALCIUM 10.5 mg/dL (8.4-10.2); CARBON DIOXIDE 21 mmol/L (22-30); CHLORIDE 101 mmol/L (98-107); GLUCOSE 84 mg/dL (75-110); LIPASE 65.7 U/L (23-300); PARTIAL THROMBOPLASTIN TIME 32.6 SEC (23.5-35.8); SODIUM 135.4 mmol/L (137-145); TOTAL PROTEIN 7.3 g/dL (6.3-8.2)
[2018-04-08 16:41] LABS: ARTERIAL BLOOD FIO2 2L
--- NOTE | 2018-04-08 16:42 | EKG REPORT ---
SEVERITY:- OTHERWISE NORMAL ECG - SINUS TACHYCARDIA : Confirmed by: Cory Samson MD 08-Apr-2018 16:42:04
--- NOTE | 2018-04-08 16:48 | RADIOLOGY REPORT (SQ) ---
EXAM DESCRIPTION: CHEST SINGLE VIEW COMPLETED DATE/TIME: 04/08/2018 4:31 pm REASON FOR STUDY: dyspnea COMPARISON: 03/04/2018 EXAM PARAMETERS: NUMBER OF VIEWS: One view. TECHNIQUE: Single frontal radiographic view of the chest acquired. RADIATION DOSE: NA LIMITATIONS: None. FINDINGS: LUNGS AND PLEURA: No opacities, masses or pneumothorax. No pleural effusion. MEDIASTINUM AND HILAR STRUCTURES: No masses. Contour normal. HEART AND VASCULAR STRUCTURES: Heart normal in size. Normal vasculature. BONES: No acute findings. HARDWARE: None in the chest. OTHER: No other significant finding. IMPRESSION: NO ACUTE RADIOGRAPHIC FINDING IN THE CHEST. TECHNICAL DOCUMENTATION: JOB ID: [id number] [employer]- All Rights Reserved Reading location - IP/workstation name: [email or web address]
[2018-04-08] MEDS ORDERED: NORMAL SALINE 500 ML IV ONE (17:14)
[2018-04-08] MEDS ORDERED: NALOXONE HCL INJ 2 MG/2 ML DISP.SYRIN IV ONE (17:20)
[2018-04-08 17:32] LABS: APPEARANCE,URINE TURBID; BILIRUBIN,URINE NEGATIVE (NEGATIVE); COLOR,URINE YELLOW; GLUCOSE, URINE NEGATIVE (NEGATIVE); KETONES,URINE NEGATIVE (NEGATIVE); LEUKOCYTE ESTERASE,URINE LARGE (NEGATIVE); NITRITE,URINE NEGATIVE (NEGATIVE); PROTEIN,URINE 30 mg/dL (NEGATIVE); URINE SPECIFIC GRAVITY 1.016; UROBILINOGEN,URINE NEGATIVE mg/dL (<2.0)
[2018-04-08] MEDS ORDERED: CEFTRIAXONE INJ 1000 MG VIAL IV ONE (17:48)
[2018-04-08] MEDS ORDERED: ONDANSETRON 4 MG TAB.RAPDIS PO PRN (18:35)
[2018-04-08] MEDS ORDERED: ACETAMINOPHEN 325 MG TABLET PO PRN (18:44)
[2018-04-08] MEDS ORDERED: LOPERAMIDE HCL 2 MG CAPSULE PO PRN (18:50)
[2018-04-08] MEDS ORDERED: IPRATROPIUM/ALBUTEROL 0.5-2.5 MG/3 ML AMPUL NEB PRN (19:08)
[2018-04-08] MEDS ORDERED: NICOTINE 14 MG/24 HR PATCH.TD24 TD PRN (19:09)
[2018-04-08] MEDS ORDERED: CEFEPIME INJ 1 GM VIAL IV PRN ×2 (19:23→19:26)
--- NOTE | 2018-04-08 19:40 | PDOC H&P ---
History of Present Illness Admission Date/PCP: 04/08/18 18:03 LETA PRIEST DO Patient complains of: Narcotic overdose. Cystitis History of Present Illness: KAREN MALDONADO is a 57 year old female who has an extensive record of hospital visits. She is narcotic dependent for pain and continues to abuse tobacco. She is compromised with a history of stroke. Family reports that the have noticed distention in the abdomen. The daughter states that the abdomen was very hard yesterday. Her mother was also confused. She also reports that her mother has left shoulder pain. When EMS responded her respiratory rate was 6 and she was somnolent. 2 mg of Narcan were administered. The patient responded. She required another 2 mg of Narcan in the emergency department. Blood gas revealed respiratory acidosis with retained CO2. See laboratory results below. Ur inalysis suggests infection. The patient does have an elevated white count. She has a VAC dressing on the right buttock/ischium. She has had infections in this wound before. She is on oxygen supplementation. She was referred to the hospitalist for admission. Past Medical History Cardiac Medical History: Reports: Hyperlipidema, Hypertension Pulmonary Medical History: Reports: Bronchitis, Chronic Obstructive Pulmonary Disease (COPD), Pneumonia Neurological Medical History: Reports: Ischemic CVA Renal/ Medical History: Reports: Chronic Kidney Disease, Other - Cystitis Musculoskeltal Medical History: Reports: Arthritis Psychiatric Medical History: Reports: Depression, Tobacco Dependency Past Surgical History Past Surgical History: Reports: Cholecystectomy, Hysterectomy, Tubal Ligation Social History Information Source: Patient - Very limited. Patient intoxicated with narcotics., Relative, [facility] Records Lives with: Family Smoking Status: Current Every Day Smoker Frequency of Alcohol Use: None Hx Recreational Drug Use: Yes Drugs: Marijuana Hx Prescription Drug Abuse: Yes - Advance Directive Resuscitation Status: Full Code Family History Family History: COPD, Hypertension Family History: Obtained from old records Parental Family History Reviewed: Yes Children Family History Reviewed: Yes Sibling(s) Family History Reviewed.: Yes Medication/Allergy Home Medications: Albuterol Sulfate [Proair HFA Inhalation Aerosol 8.5 gm MDI] 2 puff IH Q4HP PRN 03/05/18 Atorvastatin Calcium [Lipitor 40 mg Tablet] 40 mg PO QHS 03/05/18 Gabapentin [Neurontin] 600 mg PO Q6 03/05/18 Multivitamin [Animal Shapes] 1 tab PO DAILY 03/05/18 Oxycodone HCl/Acetaminophen [Percocet 10-325 mg Tablet] 1 tab PO Q8HP PRN 03/05/18 Acetaminophen [Tylenol 325 mg Tablet] 650 mg PO Q6HP PRN tablet 03/07/18 Levofloxacin [Levaquin 500 mg Tablet] 500 mg PO DAILY #5 tablet 03/07/18 Dicyclomine HCl [Bentyl 20 mg Tablet] 20 mg PO QID #12 tablet 04/02/18 Loperamide HCl [Loperamide] 2 mg PO Q8H PRN #12 tablet 04/02/18 Allergies/Adverse Reactions: No Known Allergies Allergy (Verified 04/08/18 16:49) Review of Systems Constitutional: PRESENT: fatigue, fever(s) Eyes: PRESENT: visual disturbances Ears: ABSENT: hearing changes Nose, Mouth, and Throat: ABSENT: mouth pain, sore throat Cardiovascular: ABSENT: chest pain, edema Respiratory: ABSENT: hemoptysis, sputum Gastrointestinal: PRESENT: abdominal pain. ABSENT: heartburn, nausea Musculoskeletal: PRESENT: joint swelling Neurological: PRESENT: abnormal speech - Slurred likely secondary to narcotic use Physical Exam Vital Signs: Temp Pulse Resp BP Pulse Ox 98.5 F 110 H 13 127/80 H 97 04/08/18 16:32 04/08/18 16:32 04/08/18 18:00 04/08/18 18:00 04/08/18 18:00 Intake & Output 04/07/18 04/08/18 04/09/18 06:59 06:59 06:59 Intake Total 500 Balance 500 Weight 73.4 kg General appearance: PRESENT: mild distress Head exam: PRESENT: normocephalic Eye exam: PRESENT: conjunctiva pale. ABSENT: EOMI - Limited lateral deviation right eye Ear exam: PRESENT: normal external ear exam Mouth exam: PRESENT: dry mucosa Teeth exam: PRESENT: poor dentation Respiratory exam: PRESENT: clear to auscultation abraham, symmetrical. ABSENT: crackles, rales, stridor, wheezes Cardiovascular exam: PRESENT: tachycardia Vascular exam: PRESENT: pallor GI/Abdominal exam: PRESENT: diminished bowel sounds, soft. ABSENT: distended, tenderness Rectal exam: PRESENT: deferred Extremities exam: PRESENT: other - Swollen joints on fingers Musculoskeletal exam: ABSENT: ambulatory Neurological exam: PRESENT: awake, oriented to person, oriented to place, oriented to situation. ABSENT: alert Psychiatric exam: PRESENT: appropriate affect - Affect reflects current clinical state Results Laboratory Results: 04/08/18 16:00 04/08/18 16:00 04/08/18 04/08/18 04/08/18 16:00 16:00 16:00 WBC 14.5 H RBC 4.06 Hgb 11.0 L Hct 34.4 L MCV 85 MCH 27.2 MCHC 32.1 RDW 16.0 H Plt Count 294 Seg Neutrophils % 60.5 Lymphocytes % 32.7 Monocytes % 4.4 Eosinophils % 1.8 Basophils % 0.6 Absolute Neutrophils 8.8 H Absolute Lymphocytes 4.8 H Absolute Monocytes 0.6 Absolute Eosinophils 0.3 Absolute Basophils 0.1 Carbonic Acid HCO3/H2CO3 Ratio ABG pH ABG pCO2 ABG pO2 ABG HCO3 ABG O2 Saturation ABG Base Excess FiO2 Sodium 135.4 L Potassium 5.0 Chloride 101 Carbon Dioxide 21 L Anion Gap 13 BUN 43 H Creatinine 2.25 H Est GFR ( Amer) 27 L Est GFR (Non-Af Amer) 22 L Glucose 84 Lactic Acid 1.4 Calcium 10.5 H Total Bilirubin 0.5 AST 16 ALT 18 Alkaline Phosphatase 109 Total Protein 7.3 Albumin 4.1 Lipase 65.7 Urine Color Urine Appearance Urine pH Ur Specific [place] Urine Protein Urine Glucose (UA) Urine Ketones Urine Blood Urine Nitrite Ur Leukocyte Esterase Urine WBC (Auto) Urine RBC (Auto) 04/08/18 04/08/18 16:20 17:15 WBC RBC Hgb Hct MCV MCH MCHC RDW Plt Count Seg Neutrophils % Lymphocytes % Monocytes % Eosinophils % Basophils % Absolute Neutrophils Absolute Lymphocytes Absolute Monocytes Absolute Eosinophils Absolute Basophils Carbonic Acid 1.64 H HCO3/H2CO3 Ratio 14:1 ABG pH 7.27 L ABG pCO2 54.6 H ABG pO2 56.7 L ABG HCO3 24.5 H ABG O2 Saturation 85.1 L ABG Base Excess -3.4 FiO2 2L Sodium Potassium Chloride Carbon Dioxide Anion Gap BUN Creatinine Est GFR ( Amer) Est GFR (Non-Af Amer) Glucose Lactic Acid Calcium Total Bilirubin AST ALT Alkaline Phosphatase Total Protein Albumin Lipase Urine Color YELLOW Urine Appearance TURBID Urine pH 5.0 Ur Specific [place] 1.016 Urine Protein 30 H Urine Glucose (UA) NEGATIVE Urine Ketones NEGATIVE Urine Blood SMALL H Urine Nitrite NEGATIVE Ur Leukocyte Esterase LARGE H Urine WBC (Auto) >182 Urine RBC (Auto) 26 04/08/18 16:00 Troponin I < 0.012 Impressions: Chest X-Ray 04/08/18 16:13 IMPRESSION: NO ACUTE RADIOGRAPHIC FINDING IN THE CHEST. Assessment & Plan - Diagnosis (1) Hypercapnic respiratory failure Qualifiers: Chronicity: acute Qualified Code(s): J96.02 - Acute respiratory failure with hypercapnia Is this a current diagnosis for this admission?: Yes Plan: Elevated PCO2 with decreased pH from decreased respiratory rate secondary to narcotic overdose. Narcan administered x2. Will severely limit narcotics available to the patient. Suggest chronic pain management keeping her kidney failure in mind. BiPAP is ordered as needed. (2) Opiate overdose Qualifiers: Encounter type: initial encounter Injury intent: accidental or unintentio nal Qualified Code(s): T40.601A - Poisoning by unspecified narcotics, acc idental (unintentional), initial encounter Is this a current diagnosis for this admission?: Yes Plan: The patient not only takes her on medicine but will utilize anxiolytics from other family members. Her narcotic use needs to be severely limited. She should consider long-term medication such as methadone due to the high risk of overdose. (3) Respiratory acidosis Is this a current diagnosis for this admission?: Yes Plan: Oxygen supplement as needed but keep oxygen saturations close to 90%. Significantly reduced narcotic use will improve her respiratory rate. (4) UTI (urinary tract infection) Qualifiers: Urinary tract infection type: site unspecified Hematuria presence: with hematuria Qualified Code(s): N39.0 - Urinary tract infection, site not specified; R31.9 - Hematuria, unspecified Plan: Review of old records reveals previous infections with E. coli and Pseudomonas. For this reason I feel that ceftriaxone is grossly ineffective. I will utilize cefepime until the urine culture results are available. (5) CKD (chronic kidney disease), stage III Is this a current diagnosis for this admission?: Yes Plan: I do not believe that the patient has any real insight into her chronic kidney disease. She does not understand the concept of reduced medication doses due to her poor renal function. She was [facility] at [facility], where she required hemodialysis for a similar scenario with infection and sepsis. I will give gentle IV fluids and monitor strict I's and O's to assess urine output. Continue to monitor kidney function. (6) COPD (chronic obstructive pulmonary disease) Qualifiers: COPD type: COPD with acute exacerbation Qualified Code(s): J44.1 - Chronic obstructive pulmonary disease with (acute) exacerbation Is this a current diagnosis for this admission?: Yes Plan: The patient has underlying chronic obstructive pulmonary disease and with the narcotic overdose she was extremely susceptible to hypercapnic respiratory failure. I have ordered nebulizer therapy as needed and BiPAP if needed as well. (7) Decubitus ulcer of sacral region Qualifiers: Pressure injury stage: stage 4 Qualified Code(s): L89.154 - Pressure ulcer of sacral region, stage 4 Is this a current diagnosis for this admission?: Yes Plan: Continue negative pressure ulcer therapy. At the next VAC change assess the wound and see if surgical consultation is required. (8) Chronic back pain Qualifiers: Back pain location: back pain in unspecified location Back pain laterality: unspecified Qualified Code(s): M54.9 - Dorsalgia, unspecified; G89.29 - Other chronic pain Is this a current diagnosis for this admission?: Yes Plan: Patient utilizes her pain medications for her back pain. Different approach needs to be taken. Consider long-acting medication such as methadone. Her gabapentin was grossly overdosed considering her renal function. With her opiate dependence treatment of her chronic pain will be difficult. - Time Time Spent: Greater than 70 Minutes Smoking Cessation Education: 3 to 10 minutes Medications reviewed and adjusted accordingly: Yes - Inpatient Certification Based on my medical assessment, after consideration of the patient's comorbidities, presenting symptoms, or acuity I expect that the services needed warrant INPATIENT care.: Yes I certify that my determination is in accordance with my understanding of Medicare's requirements for reasonable and necessary INPATIENT services [42 CFR 412.3e].: Yes Medical Necessity: Need For IV Fluids, Need for Nebulizer Therapy and Monitoring of Response, Need for IV Antibiotics
[2018-04-08] MEDS ORDERED: DOCUSATE SODIUM 100 MG CAPSULE PO ONE (20:00)
[2018-04-08] MEDS: HEPARIN SOD (PORCINE) 5,000 UNIT/ML 1 ML SYRINGE SUBCUT SCH (21:10)
[2018-04-08] MEDS: ATORVASTATIN CALCIUM 40 MG TABLET PO SCH (21:10)
[2018-04-08] MEDS: DICYCLOMINE HCL 20 MG TABLET PO SCH (21:10)
[2018-04-08] MEDS: NORMAL SALINE 1000 ML 1,000 ML IV PRN (22:00)
[2018-04-08] MEDS: CEFEPIME 1 GM/D5W RTU 0 GM/0 ML RTUPB IV ONE (23:18)
[2018-04-08] MEDS: CEFEPIME HCL 0.5 GM in DEXTROSE 5%-WATER 50 ML IV SCH (23:19)
[2018-04-09] MEDS: CEFEPIME 1 GM/D5W RTU 0 GM/0 ML RTUPB IV ONE (00:01)
[2018-04-09] MEDS: CEFEPIME INJ 1 GM VIAL ONE ×2 (00:25→00:27)
[2018-04-09] MEDS: CEFEPIME HCL 0.5 GM in DEXTROSE 5%-WATER 50 ML IV SCH ×2 (00:27→22:48)
[2018-04-09] MEDS: HEPARIN SOD (PORCINE) 5,000 UNIT/ML 1 ML SYRINGE SUBCUT SCH ×3 (05:22→22:42)
[2018-04-09] MEDS: NORMAL SALINE 1000 ML 1,000 ML IV PRN (05:22)
[2018-04-09 05:46] LABS: ABSOLUTE BASOPHILS # (AUTO) 0.1 10^3/uL (0.0-0.2); ABSOLUTE EOSINOPHILS # (AUTO) 0.2 10^3/uL (0.0-0.6); ABSOLUTE LYMPHOCYTES (AUTO) 2.9 10^3/uL (0.5-4.7); ABSOLUTE MONOCYTES (AUTO) 0.4 10^3/uL (0.1-1.4); ABSOLUTE NEUT (AUTO) 3.8 10^3/uL (1.7-8.2); BASOPHILS % (AUTO) 1.3 % (0-2); EOSINOPHILS % (AUTO) 2.4 % (0-6); HEMATOCRIT 33.7 % (36.0-47.0); LYMPHOCYTES % (AUTO) 39.2 % (13-45); MEAN CORPUSCULAR HEMOGLOBIN 27.4 pg (27.0-33.4); MEAN CORPUSCULAR HGB CONC 32.6 g/dL (32.0-36.0); MEAN CORPUSCULAR VOLUME 84 fl (80-97); MONOCYTES % (AUTO) 5.3 % (3-13); PLATELET COUNT 221 10^3/uL (150-450); RED BLOOD COUNT 4.01 10^6/uL (3.72-5.28); RED CELL DISTRIBUTION WIDTH 15.5 % (11.5-14.0); SEGMENTED NEUTROPHILS % (AUTO) 51.8 % (42-78); TOTAL CELLS COUNTED % (AUTO) 100 %; WHITE BLOOD COUNT 7.4 10^3/uL (4.0-10.5)
[2018-04-09 06:12] LABS: ALBUMIN 3.8 g/dL (3.5-5.0); ANION GAP 8 (5-19); BLOOD UREA NITROGEN 33 mg/dL (7-20); CALCIUM 10.3 mg/dL (8.4-10.2); CARBON DIOXIDE 24 mmol/L (22-30); CHLORIDE 105 mmol/L (98-107); GLUCOSE 92 mg/dL (75-110); PHOSPHORUS 4.8 mg/dL (2.5-4.5); POTASSIUM 4.6 mmol/L (3.6-5.0); SODIUM 137.1 mmol/L (137-145)
[2018-04-09 07:01] LABS: ARTERIAL BLOOD BASE EXCESS -0.5 mmol/L; ARTERIAL BLOOD H2CO3 1.61 mmol/L (1.05-1.35); ARTERIAL BLOOD HCO3 26.3 mmol/L (20-24); ARTERIAL BLOOD O2 SATURATION 90.1 % (94-98); ARTERIAL BLOOD PCO2 53.4 mmHg (35-45); ARTERIAL BLOOD PH 7.31 (7.35-7.45); ARTERIAL BLOOD PO2 63.7 mmHg (80-100); ARTERIAL BLOOD TOTAL CO2 27.9 mmol/L (21-25)
[2018-04-09 07:04] LABS: ARTERIAL BLOOD FIO2 1L
[2018-04-09] MEDS: DOCUSATE SODIUM 100 MG CAPSULE PO SCH ×2 (09:19→17:25)
[2018-04-09] MEDS: GABAPENTIN 300 MG CAPSULE PO SCH (09:38)
[2018-04-09] MEDS: DICYCLOMINE HCL 20 MG TABLET PO SCH ×3 (09:38→22:44)
--- NOTE | 2018-04-09 16:14 | PDOC PROGRESS REPORT ---
Subjective Progress Note for:: 04/09/18 Subjective:: Patient seen in the room with her family today.She continues to deny taking any extra dose of medicine according to her. He was explained to her that because of her kidney function she probably was more sensitive to the medicine that she normally is. Family thinks she is close to her baseline today. 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 She has a wound VAC which apparently is not functioning well Reason For Visit: CYSTITIS,HYPERCAPNIC HYPOXIC RESPIRATORY FAILURE, Physical Exam Vital Signs: Temp Pulse Resp BP Pulse Ox 98.0 F 99 16 117/59 L 97 04/09/18 12:19 04/09/18 14:00 04/09/18 12:31 04/09/18 12:19 04/09/18 12:31 Intake & Output 04/08/18 04/09/18 04/10/18 06:59 06:59 06:59 Intake Total 1550 1000 Output Total 200 750 Balance 1350 250 Weight 73.4 kg General appearance: PRESENT: no acute distress, cooperative Head exam: PRESENT: atraumatic Mouth exam: PRESENT: moist Neck exam: ABSENT: carotid bruit, JVD, lymphadenopathy, thyromegaly Respiratory exam: PRESENT: clear to auscultation abraham. ABSENT: rales, rhonchi, wheezes Cardiovascular exam: PRESENT: RRR. ABSENT: diastolic murmur, rubs, systolic murmur GI/Abdominal exam: PRESENT: normal bowel sounds, soft. ABSENT: distended, guarding, mass, organolmegaly, rebound, tenderness Rectal exam: PRESENT: deferred Gentrourinary exam: PRESENT: indwelling catheter Musculoskeletal exam: ABSENT: ambulatory Neurological exam: PRESENT: alert, awake, oriented to person, oriented to place, oriented to time Psychiatric exam: PRESENT: appropriate affect Skin exam: PRESENT: other - Decubitus ulcer stage 4, sacral, POA wound vac in place Results Laboratory Results: 04/09/18 05:02 04/09/18 05:02 04/08/18 04/08/18 04/08/18 16:00 16:00 16:00 WBC 14.5 H RBC 4.06 Hgb 11.0 L Hct 34.4 L MCV 85 MCH 27.2 MCHC 32.1 RDW 16.0 H Plt Count 294 Seg Neutrophils % 60.5 Lymphocytes % 32.7 Monocytes % 4.4 Eosinophils % 1.8 Basophils % 0.6 Absolute Neutrophils 8.8 H Absolute Lymphocytes 4.8 H Absolute Monocytes 0.6 Absolute Eosinophils 0.3 Absolute Basophils 0.1 Carbonic Acid HCO3/H2CO3 Ratio ABG pH ABG pCO2 ABG pO2 ABG HCO3 ABG O2 Saturation ABG Base Excess FiO2 Sodium 135.4 L Potassium 5.0 Chloride 101 Carbon Dioxide 21 L Anion Gap 13 BUN 43 H Creatinine 2.25 H Est GFR ( Amer) 27 L Est GFR (Non-Af Amer) 22 L Glucose 84 Lactic Acid 1.4 Calcium 10.5 H Phosphorus Magnesium Total Bilirubin 0.5 AST 16 ALT 18 Alkaline Phosphatase 109 Total Protein 7.3 Albumin 4.1 Lipase 65.7 Urine Color Urine Appearance Urine pH Ur Specific [place] Urine Protein Urine Glucose (UA) Urine Ketones Urine Blood Urine Nitrite Ur Leukocyte Esterase Urine WBC (Auto) Urine RBC (Auto) 04/08/18 04/08/18 04/09/18 16:20 17:15 05:02 WBC 7.4 RBC 4.01 Hgb 11.0 L Hct 33.7 L MCV 84 MCH 27.4 MCHC 32.6 RDW 15.5 H Plt Count 221 Seg Neutrophils % 51.8 Lymphocytes % 39.2 Monocytes % 5.3 Eosinophils % 2.4 Basophils % 1.3 Absolute Neutrophils 3.8 Absolute Lymphocytes 2.9 Absolute Monocytes 0.4 Absolute Eosinophils 0.2 Absolute Basophils 0.1 Carbonic Acid 1.64 H HCO3/H2CO3 Ratio 14:1 ABG pH 7.27 L ABG pCO2 54.6 H ABG pO2 56.7 L ABG HCO3 24.5 H ABG O2 Saturation 85.1 L ABG Base Excess -3.4 FiO2 2L Sodium Potassium Chloride Carbon Dioxide Anion Gap BUN Creatinine Est GFR ( Amer) Est GFR (Non-Af Amer) Glucose Lactic Acid Calcium Phosphorus Magnesium Total Bilirubin AST ALT Alkaline Phosphatase Total Protein Albumin Lipase Urine Color YELLOW Urine Appearance TURBID Urine pH 5.0 Ur Specific [place] 1.016 Urine Protein 30 H Urine Glucose (UA) NEGATIVE Urine Ketones NEGATIVE Urine Blood SMALL H Urine Nitrite NEGATIVE Ur Leukocyte Esterase LARGE H Urine WBC (Auto) >182 Urine RBC (Auto) 26 04/09/18 04/09/18 05:02 06:49 WBC RBC Hgb Hct MCV MCH MCHC RDW Plt Count Seg Neutrophils % Lymphocytes % Monocytes % Eosinophils % Basophils % Absolute Neutrophils Absolute Lymphocytes Absolute Monocytes Absolute Eosinophils Absolute Basophils Carbonic Acid 1.61 H HCO3/H2CO3 Ratio 16:1 ABG pH 7.31 L ABG pCO2 53.4 H ABG pO2 63.7 L ABG HCO3 26.3 H ABG O2 Saturation 90.1 L ABG Base Excess -0.5 FiO2 1L Sodium 137.1 Potassium 4.6 Chloride 105 Carbon Dioxide 24 Anion Gap 8 BUN 33 H Creatinine 1.42 H Est GFR ( Amer) 46 L Est GFR (Non-Af Amer) 38 L Glucose 92 Lactic Acid Calcium 10.3 H Phosphorus 4.8 H Magnesium 1.9 Total Bilirubin AST ALT Alkaline Phosphatase Total Protein Albumin 3.8 Lipase Urine Color Urine Appearance Urine pH Ur Specific [place] Urine Protein Urine Glucose (UA) Urine Ketones Urine Blood Urine Nitrite Ur Leukocyte Esterase Urine WBC (Auto) Urine RBC (Auto) 04/08/18 16:00 Troponin I < 0.012 Impressions: Chest X-Ray 04/08/18 16:13 IMPRESSION: NO ACUTE RADIOGRAPHIC FINDING IN THE CHEST. Assessment & Plan - Diagnosis (1) Opiate overdose Qualifiers: Encounter type: initial encounter Injury intent: accidental or unintentional Qualified Code(s): T40.601A - Poisoning by unspecified narcotics, accidental (unintentional), initial encounter Is this a current diagnosis for this admission?: Yes Plan: As per H and P Judicious use of narcotics only (2) Respiratory acidosis Is this a current diagnosis for this admission?: Yes Plan: Secondary to opiates (3) UTI (urinary tract infection) Qualifiers: Urinary tract infection type: site unspecified Hematuria presence: with hematuria Qualified Code(s): N39.0 - Urinary tract infection, site not specified; R31.9 - Hematuria, unspecified Is this a current diagnosis for this admission?: Yes (4) Acute kidney injury superimposed on chronic kidney disease Is this a current diagnosis for this admission?: Yes Plan: Continue to monitor kidney function (5) Sacral decubitus ulcer, stage IV Is this a current diagnosis for this admission?: Yes Plan: Present on admission, continue wound vac, dressing (6) Hypercapnic respiratory failure Qualifiers: Chronicity: acute Qualified Code(s): J96.02 - Acute respiratory failure with hypercapnia Is this a current diagnosis for this admission?: Yes - Time Time Spent with patient: 15-24 minutes Medications reviewed and adjusted accordingly: Yes Anticipated discharge: Home with Homehealth Within: within 72 hours - Inpatient Certification Based on my medical assessment, after consideration of the patient's comorbidities, presenting symptoms, or acuity I expect that the services needed warrant INPATIENT care.: Yes
[2018-04-09] MEDS: OXYCODONE HCL IR 5 MG TABLET PO PRN ×2 (16:21→22:41)
[2018-04-09] MEDS ORDERED: CEFEPIME HCL 0.5 GM in DEXTROSE 5%-WATER 25 ML IV SCH (22:00)
[2018-04-09] MEDS: ATORVASTATIN CALCIUM 40 MG TABLET PO SCH (22:40)
[2018-04-10] MEDS: OXYCODONE HCL IR 5 MG TABLET PO PRN ×2 (04:41→10:45)
[2018-04-10] MEDS: HEPARIN SOD (PORCINE) 5,000 UNIT/ML 1 ML SYRINGE SUBCUT SCH ×2 (05:39→13:49)
[2018-04-10 07:01] LABS: ANION GAP 8 (5-19); BLOOD UREA NITROGEN 18 mg/dL (7-20); CALCIUM 10.6 mg/dL (8.4-10.2); CARBON DIOXIDE 25 mmol/L (22-30); CHLORIDE 104 mmol/L (98-107); GLUCOSE 94 mg/dL (75-110); POTASSIUM 4.2 mmol/L (3.6-5.0); SODIUM 136.5 mmol/L (137-145)
[2018-04-10] MEDS: DICYCLOMINE HCL 20 MG TABLET PO SCH ×3 (08:24→15:55)
[2018-04-10] MEDS: DOCUSATE SODIUM 100 MG CAPSULE PO SCH (10:28)
[2018-04-10] MEDS: GABAPENTIN 300 MG CAPSULE PO SCH (10:28)
[2018-04-10] MEDS ORDERED: PSYLLIUM SEED-SF 5.85 GM PACKET PO ONE (11:40)
--- NOTE | 2018-04-10 12:05 | PDOC DISCHARGE SUMMARY ---
General - Admit/Disc Date/PCP Admission Date/Primary Care Provider: 04/08/18 18:03 LETA PRIEST, Discharge Date: 04/10/18 - Discharge Diagnosis (1) Opiate overdose Is this a current diagnosis for this admission?: Yes (2) Respiratory acidosis Is this a current diagnosis for this admission?: Yes (3) UTI (urinary tract infection) Is this a current diagnosis for this admission?: Yes (4) Acute kidney injury superimposed on chronic kidney disease Is this a current diagnosis for this admission?: Yes (5) Sacral decubitus ulcer, stage IV Is this a current diagnosis for this admission?: Yes (6) Hypercapnic respiratory failure Is this a current diagnosis for this admission?: Yes (7) Chronic pain disorder Is this a current diagnosis for this admission?: Yes (8) Acute metabolic encephalopathy Is this a current diagnosis for this admission?: Yes - Additional Information Resuscitation Status: Full Code Discharge Diet: Cardiac Discharge Activity: Activity As Tolerated Prescriptions: Ampicillin Trihydrate [Princepen 500 mg Capsule] 500 mg PO Q6 #20 capsule Home Medications: Albuterol Sulfate [Proair HFA Inhalation Aerosol 8.5 gm MDI] 2 puff IH Q4HP PRN 04/09/18 Lisinopril [Zestril] 10 mg PO DAILY 04/09/18 Oxycodone HCl/Acetaminophen [Percocet 10-325 mg Tablet] 1 tab PO Q8HP PRN 04/09/18 Acetaminophen [Tylenol 325 mg Tablet] 650 mg PO Q6HP PRN tablet 04/10/18 Ampicillin Trihydrate [Princepen 500 mg Capsule] 500 mg PO Q6 #20 capsule 04/10/18 Atorvastatin Calcium [Lipitor 40 mg Tablet] 40 mg PO QHS tablet 04/10/18 Docusate Sodium [Colace 100 mg Capsule] 100 mg PO BID capsule 04/10/18 History of Present Illness Patient complains of: This patient was admitted with a change in mental status. She was found to be confused. It was felt that patient likely had opiate overdose and confusion from multiole etiologies History of Present Illness: KAREN MALDONADO is a 57 year old female Hospital Course Hospital Course: This is patient was admitted with a change in mental status. She was found to be confused. It was felt that patient likely had opiate overdose. She had been taking oxycodone at home as part of her chronic pain regimen. She received 2 mg of Narcan and it appeared patient mental status improved. Mental status continued to improve while in hospital. She did have hypercapnia. She was also found to have a urinary tract infection secondary to enterococcus for which she received empiric cefepime. She has been discharged home on ampicillin. She has a wound VAC in her right buttock ischium as patient is bedbound from old cerebrovascular accident. Patient mental status continues to improve while in hospital and at this point it is felt that patient is stable enough for discharge and so she has been discharged home. Physical Exam Vital Signs: Temp Pulse Resp BP Pulse Ox 98.2 F 84 14 139/65 H 93 04/10/18 08:09 04/10/18 08:09 04/10/18 08:09 04/10/18 08:09 04/10/18 08:09 Intake & Output 04/09/18 04/10/18 04/11/18 06:59 06:59 06:59 Intake Total 1550 1325 Output Total 200 1525 Balance 1350 -200 Weight 73.4 kg 76.8 kg General appearance: PRESENT: no acute distress, well-developed, well-nourished Head exam: PRESENT: atraumatic, normocephalic Eye exam: PRESENT: conjunctiva pink, EOMI, PERRLA. ABSENT: scleral icterus Ear exam: PRESENT: normal external ear exam Mouth exam: PRESENT: moist, tongue midline Neck exam: ABSENT: carotid bruit, JVD, lymphadenopathy, thyromegaly Respiratory exam: PRESENT: clear to auscultation abraham. ABSENT: rales, rhonchi, wheezes Cardiovascular exam: PRESENT: RRR. ABSENT: diastolic murmur, rubs, systolic murmur Pulses: PRESENT: normal dorsalis pedis pul Vascular exam: PRESENT: normal capillary refill GI/Abdominal exam: PRESENT: normal bowel sounds, soft. ABSENT: distended, guarding, mass, organolmegaly, rebound, tenderness Rectal exam: PRESENT: deferred Extremities exam: ABSENT: calf tenderness, clubbing, pedal edema Musculoskeletal exam: PRESENT: other - paraplegic. ABSENT: ambulatory Neurological exam: PRESENT: alert, awake, oriented to person, oriented to place, oriented to time, oriented to situation, motor sensory deficit - Lower extremities paplegia Psychiatric exam: PRESENT: appropriate affect, normal mood. ABSENT: homicidal ideation, suicidal ideation Skin exam: PRESENT: dry, intact, warm. ABSENT: cyanosis, rash Results Laboratory Results: 04/09/18 05:02 04/10/18 06:01 04/10/18 06:01 Sodium 136.5 L Potassium 4.2 Chloride 104 Carbon Dioxide 25 Anion Gap 8 BUN 18 Creatinine 0.98 Est GFR ( Amer) > 60 Est GFR (Non-Af Amer) 58 L Glucose 94 Calcium 10.6 H 04/08/18 17:15 Catheterized Urine Urine Culture - Final Enterococcus Faecalis(Group D) 04/08/18 16:00 Troponin I < 0.012 Impressions: Chest X-Ray 04/08/18 16:13 IMPRESSION: NO ACUTE RADIOGRAPHIC FINDING IN THE CHEST. Qualifiers - * PATIENT BEING DISCHARGED WITH ANY OF THE FOLLOWING DIAGNOSIS: No
[2018-04-10] MEDS ORDERED: AMPICILLIN TRIHYD 500 MG CAPSULE PO SCH (14:00)
[2018-04-10 16:53] VITALS: BP 138/75
== END 2018-04-10 16:56 | disposition home or self-care (01) | DRG 917 ==
LOC: ER 15:40 → EH 18:03 → 3W 22:04
PROVIDERS: ADMIT Hospitalist; ATTEND Hospitalist
PROC: 5A09357 Assistance with Respiratory Ventilation, Less than 24 Consecutive Hours, Continuous Positive Airway Pressure (ICD-10-PCS; principal; 2018-04-08)
PROC: 3E0F73Z Introduction of Anti-inflammatory into Respiratory Tract, Via Natural or Artificial Opening (ICD-10-PCS; 2018-04-09)
DX: T40.2X1A Poisoning by other opioids, accidental (unintentional), initial encounter (principal); L89.154 Pressure ulcer of sacral region, stage 4; J96.02 Acute respiratory failure with hypercapnia; N17.9 Acute kidney failure, unspecified; F11.20 Opioid dependence, uncomplicated; J44.1 Chronic obstructive pulmonary disease with (acute) exacerbation; N30.90 Cystitis, unspecified without hematuria; Y92.9 Unspecified place or not applicable; F17.210 Nicotine dependence, cigarettes, uncomplicated; E78.00 Pure hypercholesterolemia, unspecified; M19.90 Unspecified osteoarthritis, unspecified site; F32.9 Major depressive disorder, single episode, unspecified; G89.29 Other chronic pain; B95.2 Enterococcus as the cause of diseases classified elsewhere; I12.9 Hypertensive chronic kidney disease with stage 1 through stage 4 chronic kidney disease, or unspecified chronic kidney disease; R31.9 Hematuria, unspecified; N18.3 Chronic kidney disease, stage 3 (moderate); M54.9 Dorsalgia, unspecified; Z86.73 Personal history of transient ischemic attack (TIA), and cerebral infarction without residual deficits; Z90.49 Acquired absence of other specified parts of digestive tract; Z90.710 Acquired absence of both cervix and uterus; Z79.899 Other long term (current) drug therapy; Z74.01 Bed confinement status; Z83.6 Family history of other diseases of the respiratory system; Z82.49 Family history of ischemic heart disease and other diseases of the circulatory system
CPT/HCPCS: 36415; 71045; 80048; 80053; 80069; 81001; 82803; 83605; 83690; 83735; 84484; 85025; 85610; 85730; 87040; 87086; 87088; 87186; 93005; 93010; 96361; 96374; 99291; J0692; J0696; J1644; J2310; J3490; J7030; J7040; J7620; S0119

== ENCOUNTER 2018-05-15 10:15 | Emergency (ER) | payer MEDICAID ==
[2018-05-15] MEDS ORDERED: ONDANSETRON HCL INJ/PF 4 MG/2 ML SDV IV ONE (10:35)
[2018-05-15] MEDS ORDERED: MORPHINE SULFATE 10 MG/ML INJ IV ONE (10:36)
--- NOTE | 2018-05-15 10:42 | ER Document Report ---
ED General - General Stated Complaint: VOMITING Time Seen by Provider: 05/15/18 10:34 Primary Care Provider: LETA PRIEST DO [Primary Care Provider] - Follow up as needed Notes: 57-year-old female presents to the ER with 2 days of nausea vomiting and loose stools. Patient complains of abdominal distention and pain. Denies chest pain denies shortness of breath. Complains of aching pain in her abdomen that comes and goes. States is worse with vomiting. He denies any hematemesis or coffee- ground emesis. Denies black bloody or tarry stools. The patient also states she had a UTI several weeks ago but was not compliant with antibiotic course. Patient is bed ridden at home. Is cared for by her . She denies any falls or trauma. Denies chest pain denies shortness of breath. Was a severe pain in her abdomen. TRAVEL OUTSIDE OF THE [place] IN LAST 30 DAYS: No - Related Data Allergies/Adverse Reactions: No Known Allergies Allergy (Verified 05/15/18 10:38) Past Medical History - Social History Smoking Status: Former Smoker Family History: COPD, Hypertension - Past Medical History Cardiac Medical History: Reports: Hx Hypercholesterolemia, Hx Hypertension Pulmonary Medical History: Reports: Hx Bronchitis, Hx COPD, Hx Pneumonia Renal/ Medical History: Denies: Hx Peritoneal Dialysis Musculoskeletal Medical History: Reports Hx Arthritis Psychiatric Medical History: Reports: Hx Depression Past Surgical History: Reports: Hx Cholecystectomy, Hx Hysterectomy, Hx Tubal Ligation - Immunizations Hx Diphtheria, Pertussis, Tetanus Vaccination: Yes Hx Pneumococcal Vaccination: 01/29/15 Review of Systems - Review of Systems Constitutional: denies: Chills, Fever Cardiovascular: denies: Chest pain, Dyspnea Gastrointestinal: Abdominal pain, Diarrhea, Nausea, Vomiting. denies: Constipation Skin: denies: Rash -: Yes All other systems reviewed and negative Physical Exam - Vital signs Vitals: Resp Pulse Ox 14 97 05/15/18 10:29 05/15/18 10:29 - Notes Notes: GENERAL_APPEARANCE: well_nourished, alert, cooperative, is uncomfortable crying VITALS: reviewed, see vital signs table. HEAD: no_swelling\tenderness on the head. EYES: PERRL, EOMI, conjunctiva_clear. NOSE: no_nasal_discharge. MOUTH: (-)decreased moisture. THROAT: Mild throat_inflammation, no_airway_obstruction. no_lymphadenopathy NECK: supple, no_neck_tenderness, (-)thyromegaly. BACK: no_back_tenderness. Sacral decub toward right hip CHEST_WALL: no_chest_tenderness. LUNGS: no_wheezing, no_rales, no_rhonchi, (-)accessory muscle use, good air exchange bilateral. HEART: normal_rate, normal_rhythm, normal_S1, normal_S2, (-)S3, (-)S4, no_murmur, no_rub. ABDOMEN: normal_BS, soft, diffuse_abd_tenderness, (-)guarding, (-)rebound, no_organomegaly, no_abd_masses. EXTREMITIES: good pulses in all_extremities, no_swelling\tenderness in the extremities, no_edema. SKIN: warm, dry, good_color, no_rash. MENTAL_STATUS: speech_clear, oriented_X_3, crying_affect, responds_ appropriately to questions. NEURO: Residual stroke deficits left Course - Re-evaluation Re-evalutation: 05/15/18 10:42 Patient presents with abdominal pain nausea and vomiting. She does have a history UTI will check a urine give the patient IV fluids pain and nausea medicine. CT scan of the abdomen. 05/15/18 14:26 Patient is a UTI. We will culture her urine give her a dose of Rocephin here. She does have pain management home and undergoes pain management. She does not want any additional pain medicine. Patient otherwise is stable and should be ready to go home - Vital Signs Vital signs: Temp Pulse Resp BP Pulse Ox 97.6 F 116 H 20 149/119 H 96 05/15/18 14:01 05/15/18 10:51 05/15/18 10:51 05/15/18 10:51 05/15/18 10:51 - Laboratory Result Diagrams: 05/15/18 10:25 05/15/18 10:25 Laboratory results interpreted by me: 05/15/18 05/15/18 05/15/18 10:25 10:25 11:26 RDW 16.0 H Monocytes % 2.4 L BUN 22 H Est GFR (Non-Af Amer) 56 L Calcium 11.4 H Direct Bilirubin 0.6 H Total Protein 8.8 H Urine Protein 30 H Urine Blood MODERATE H Ur Leukocyte Esterase LARGE H - Diagnostic Test Radiology reviewed: Reports reviewed Radiology results interpreted by me: 05/15/18 14:21 Abdomen/Pelvis CT 05/15/18 10:35 IMPRESSION: 1. No acute noncontrast CT findings to explain abdominal pain, nausea, or vomiting. 2. 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 3. Right sacral decubitus ulcer. Discharge - Discharge Clinical Impression: UTI (urinary tract infection) Qualifiers: Urinary tract infection type: acute cystitis Condition: Good Disposition: HOME, SELF-CARE Instructions: Urinary Tract Infection ([facility]) Prescriptions: Cephalexin Monohydrate [Keflex 500 mg Capsule] 500 mg PO Q6H 5 Days capsule Referrals: LETA PRIEST DO [Primary Care Provider] - Follow up as needed
[2018-05-15] MEDS: NORMAL SALINE 1000 ML 1,000 ML IV PRN ×2 (10:43→14:03)
[2018-05-15 10:54] LABS: ABSOLUTE BASOPHILS # (AUTO) 0.1 10^3/uL (0.0-0.2); ABSOLUTE EOSINOPHILS # (AUTO) 0.1 10^3/uL (0.0-0.6); ABSOLUTE LYMPHOCYTES (AUTO) 2.2 10^3/uL (0.5-4.7); ABSOLUTE MONOCYTES (AUTO) 0.2 10^3/uL (0.1-1.4); ABSOLUTE NEUT (AUTO) 6.3 10^3/uL (1.7-8.2); EOSINOPHILS % (AUTO) 0.7 % (0-6); HEMATOCRIT 38.3 % (36.0-47.0); HEMOGLOBIN 12.7 g/dL (12.0-15.5); LYMPHOCYTES % (AUTO) 24.4 % (13-45); MEAN CORPUSCULAR HEMOGLOBIN 27.3 pg (27.0-33.4); MEAN CORPUSCULAR HGB CONC 33.1 g/dL (32.0-36.0); MEAN CORPUSCULAR VOLUME 83 fl (80-97); MONOCYTES % (AUTO) 2.4 % (3-13); PLATELET COUNT 342 10^3/uL (150-450); RED BLOOD COUNT 4.65 10^6/uL (3.72-5.28); SEGMENTED NEUTROPHILS % (AUTO) 71.5 % (42-78); TOTAL CELLS COUNTED % (AUTO) 100 %; WHITE BLOOD COUNT 8.8 10^3/uL (4.0-10.5)
[2018-05-15 11:11] LABS: ALANINE AMINOTRANSFERASE 12 U/L (9-52); ALBUMIN 4.8 g/dL (3.5-5.0); ALKALINE PHOSPHATASE 123 U/L (38-126); ANION GAP 13 (5-19); ASPARTATE AMINO TRANSFERASE 32 U/L (14-36); BILIRUBIN,DIRECT 0.6 mg/dL (0.0-0.4); BILIRUBIN,TOTAL 0.8 mg/dL (0.2-1.3); BLOOD UREA NITROGEN 22 mg/dL (7-20); CALCIUM 11.4 mg/dL (8.4-10.2); CARBON DIOXIDE 25 mmol/L (22-30); CHLORIDE 102 mmol/L (98-107); GLUCOSE 102 mg/dL (75-110); LIPASE 43.7 U/L (23-300); POTASSIUM 4.4 mmol/L (3.6-5.0); SODIUM 139.8 mmol/L (137-145); TOTAL PROTEIN 8.8 g/dL (6.3-8.2)
[2018-05-15 11:49] LABS: APPEARANCE,URINE TURBID; BILIRUBIN,URINE NEGATIVE (NEGATIVE); COLOR,URINE YELLOW; GLUCOSE, URINE NEGATIVE (NEGATIVE); KETONES,URINE NEGATIVE (NEGATIVE); LEUKOCYTE ESTERASE,URINE LARGE (NEGATIVE); NITRITE,URINE NEGATIVE (NEGATIVE); PROTEIN,URINE 30 mg/dL (NEGATIVE); URINE SPECIFIC GRAVITY 1.011; UROBILINOGEN,URINE NEGATIVE mg/dL (<2.0)
--- NOTE | 2018-05-15 12:35 | RADIOLOGY REPORT (SQ) ---
EXAM DESCRIPTION: CT ABD/PELVIS NO ORAL OR IV COMPLETED DATE/TIME: 05/15/2018 12:01 pm REASON FOR STUDY: abd COMPARISON: 03/04/2018 TECHNIQUE: CT scan of the abdomen and pelvis performed without intravenous or oral contrast. Images reviewed with lung, soft tissue, and bone windows. Reconstructed coronal and sagittal MPR images revi ewed. All images stored on PACS. All CT scanners at this facility use dose modulation, iterative reconstruction, and/or weight based d osing when appropriate to reduce radiation dose to as low as reasonably achievable (ALARA). [facility]: Dose Right [facility]: CareDose [facility]: Dose Right [facility]: Teradose 4D [facility]: Smart [employer] RADIATION DOSE: CT Rad equipment meets quality standard of care and radiation dose reduction techniq ues were employed. CTDIvol: 8.4 mGy. DLP: 496 mGy-cm.mGy. LIMITATIONS: None. FINDINGS: LOWER CHEST: No significant findings. No nodules or infiltrates. NON-CONTRASTED LIVER, SPLEEN, ADRENALS: Evaluation limited by lack of IV contrast. Unchanged left ad renal mass. PANCREAS: No masses. No peripancreatic inflammatory changes. GALLBLADDER: Surgically absent. RIGHT KIDNEY AND URETER: No suspicious masses. Assessment limited by lack of IV contrast. No signif icant calcifications. No hydronephrosis or hydroureter. LEFT KIDNEY AND URETER: Very atrophic, likely due to vascular insult. No suspicious masses. Assessme nt limited by lack of IV contrast. No significant calcifications. No hydronephrosis or hydrourete r. AORTA AND RETROPERITONEUM: Juxtarenal abdominal aortic aneurysm status post aortobiiliac stent endogr aft and bilateral renal snorkel stent repair BOWEL AND PERITONEAL CAVITY: No obvious masses or inflammatory changes. No free fluid. Diverticulosi s. APPENDIX: Normal. PELVIS, BLADDER, AND ABDOMINAL WALL:No abnormal masses. No free fluid. Bladder normal. BONES: No significant findings. OTHER: Right sacral decubitus ulcer. IMPRESSION: 1. No acute noncontrast CT findings to explain abdominal pain, nausea, or vomiting. 2. 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 3. Right sacral decubitus ulcer. COMMENT: Quality ID # [id number]: Final reports with documentation of one or more dose reduction techniques (e.g., Automated exposure control, adjustment of the mA and/or kV according to patient size, use of iterative reconstruction technique) TECHNICAL DOCUMENTATION: JOB ID: [id number] [employer]- All Rights Reserved Reading location - IP/workstation name: [email or web address]
[2018-05-15] MEDS ORDERED: HYDROCODONE/ACETAMINOPHEN 5-325 MG TABLET PO ONE (14:01)
[2018-05-15] MEDS ORDERED: CEFTRIAXONE 1 GM/D5W RTU 1 GM/50 ML RTUPB IV ONE (15:00)
[2018-05-15 17:26] VITALS: BP 150/74
== END 2018-05-15 17:26 | disposition home or self-care (01) ==
LOC: ER 10:15
DX: N30.00 Acute cystitis without hematuria (principal); R11.2 Nausea with vomiting, unspecified; E78.00 Pure hypercholesterolemia, unspecified; I10 Essential (primary) hypertension; J44.9 Chronic obstructive pulmonary disease, unspecified; Z90.49 Acquired absence of other specified parts of digestive tract; Z90.710 Acquired absence of both cervix and uterus
CPT/HCPCS: 99284; 96361; 96375; 96365; 36415; 87086; 83690; 85025; 87088; 80053; 81001; 87186; 74176; J2270; J2405; J7030; J0696

== ENCOUNTER 2018-06-24 20:02 | Emergency (ER) | payer MEDICAID ==
[2018-06-24] MEDS ORDERED: CETIRIZINE 10 MG TABLET PO ONE (21:57)
[2018-06-24] MEDS ORDERED: KETOROLAC TROMETHAMINE 60 MG/2 ML SDV IM ONE (21:58)
[2018-06-24] MEDS ORDERED: METOCLOPRAMIDE HCL 10 MG TABLET PO ONE (21:58)
--- NOTE | 2018-06-24 22:03 | ER Document Report ---
ED General - General Chief Complaint: Allergic Reaction Stated Complaint: ALLERGIC REACTION Time Seen by Provider: 06/24/18 20:21 Primary Care Provider: LETA PRIEST DO [Primary Care Provider] - Follow up tomorrow Notes: Patient is a 57-year-old female with a past medical history of CVA, bilateral weakness lower extremities at baseline, COPD, presents with a multitude of complaints by EMS. Initially the patient stated complaint is that she has had a diffuse body rash that has been coming and going for the last 2 weeks. She then relates a significant concern that she has been having intermittent nausea and v omiting for the past 2 days although significant family members at bedside relate that this is X been a months long issue and that the patient has not vomited today. The patient also reports a history of recurrent diarrhea has had 4-5 bowel movements today. She has chronic low back pain, chronic hip pain that are unchanged today. No specific indication that she can report for coming to the emergency department today. Has not seen her primary doctor regarding today's concerns. She does describe the rash as being a burning, itching, constant discomfort. She has not trying to relieve that discomfort. Nothing seems to worsen or trigger that rash. No history of similar symptoms in regards to the rash in the past. She was diagnosed with a urinary tract infection several days ago and was started on her bed but states the rash started prior to onset of this antibiotic. TRAVEL OUTSIDE OF THE [place] IN LAST 30 DAYS: No - Related Data Allergies/Adverse Reactions: No Known Allergies Allergy (Verified 05/15/18 10:38) Past Medical History - General Information source: Patient, Relative - Social History Smoking Status: Current Every Day Smoker Chew tobacco use (# tins/day): No Frequency of alcohol use: None Drug Abuse: None Lives with: Family Family History: COPD, Hypertension Patient has suicidal ideation: No Patient has homicidal ideation: No - Past Medical History Cardiac Medical History: Reports: Hx Hypercholesterolemia, Hx Hypertension Pulmonary Medical History: Reports: Hx Bronchitis, Hx COPD, Hx Pneumonia Renal/ Medical History: Denies: Hx Peritoneal Dialysis Musculoskeletal Medical History: Reports Hx Arthritis Psychiatric Medical History: Reports: Hx Depression Past Surgical History: Reports: Hx Cholecystectomy, Hx Hysterectomy, Hx Tubal Ligation - Immunizations Hx Diphtheria, Pertussis, Tetanus Vaccination: Yes Hx Pneumococcal Vaccination: 01/29/15 Review of Systems - Review of Systems Notes: Constitutional: Negative for fever. HENT: Negative for sore throat. Eyes: Negative for visual changes. Cardiovascular: Negative for chest pain. Respiratory: Negative for shortness of breath. Gastrointestinal: Negative for abdominal pain, positive for vomiting and diarrhea Genitourinary: Negative for dysuria. Musculoskeletal: Negative for back pain. Skin: Positive for rash. Neurological: Negative for headaches, weakness or numbness. 10 point ROS negative except as marked above and in HPI. Physical Exam - Vital signs Vitals: Temp Pulse Resp BP Pulse Ox 97.8 F 102 H 16 165/86 H 95 06/24/18 20:04 06/24/18 20:04 06/24/18 20:04 06/24/18 20:04 06/24/18 20:04 Interpretation: Hypertensive, Tachycardic Notes: PHYSICAL EXAMINATION: GENERAL: Appears much older than stated age, no acute distress HEAD: Atraumatic, normocephalic. EYES: Pupils equal round and reactive to light, extraocular movements intact, sclera anicteric, conjunctiva are normal. ENT: nares patent, oropharynx clear without exudates. Moist mucous membranes. NECK: Normal range of motion, supple without lymphadenopathy LUNGS: Breath sounds clear to auscultation bilaterally and equal. Faint expiratory wheezing throughout. HEART: Regular rate and rhythm without murmurs ABDOMEN: Soft, nontender, normoactive bowel sounds. No guarding, no rebound. No masses appreciated. EXTREMITIES: Normal range of motion, no pitting or edema. No cyanosis. NEUROLOGICAL: Patient states that she is at her neurologic baseline. No facial asymmetry, tongue protrudes midline, extraocular motions intact. Human Resources Technician strength intact bilaterally. PSYCH: Normal mood, normal affect. SKIN: Warm, Dry, normal turgor, diffuse mildly raised erythematous rash over the bilateral forearms, bilateral lower extremities although absence over the torso, abdomen and back. Course - Re-evaluation Re-evalutation: 06/24/18 22:01 Patient presents with a multitude of concerns including a diffuse body rash that has been coming and going for the past 2 weeks, diarrhea, vomiting, intermittent lower abdominal cramping, and chronic low back pain. It is initially difficult to clarify exactly what prompted visit to the emergency department today. Patient does have home health services who has requested a chest x-ray and C. difficile testing. On review of patient's recent visits to the emergency department she is actually been seen 3 times in 2019 for similar complaints of vomiting, diarrhea and lower abdominal discomfort. On exam the patient has no focal areas of tenderness no rebound or guarding on her abdomen. She overall appears well hydrated. Daughter at the bedside states the patient has not active vomiting for the past 24 hours. She does have a sacral wound which is managed chronically as an outpatient. She is currently being treated for uri nary tract infection with Macrobid. Will obtain basic laboratories, C. difficile, chest x-ray, abdominal x-ray and reassess. Patient's rash appears to be consistent with a contact dermatitis and will treat with cetirizine. She is not on any antibiotics or drugs that could cause Fountain-Saúl syndrome or TEN. Does not appear consistent with either of these diagnoses. 06/24/18 23:48 Labs are broadly unremarkable. The patient has been unable to produce a stool sample here in the emergency department. She is no longer itching the rash, rash itself overall appears unchanged. Chest x-ray, abdominal x-ray unremarkable. Patient has ate and drank without any difficulty here in the emergency department. I have advised that she should follow-up as an outpatient regarding today's concerns as well as C. difficile testing given that she has been unable a stool sample here in the emergency department although the fact that she has not had a bowel movement in 4 hours reduces the probability of C. difficile significantly. At this time will discharge with return precautions and follow-up recommendations. Verbal discharge instructions given a the bedside and opportunity for questions given. Medication warnings reviewed. Patient is in agreement with this plan and has verbalized understanding of return precautions and the need for primary care follow-up in the next 24-72 hours. - Vital Signs Vital signs: Temp Pulse Resp BP Pulse Ox 97.8 F 102 H 14 111/82 92 06/24/18 20:04 06/24/18 20:04 06/24/18 23:31 06/24/18 23:31 06/24/18 23:31 - Laboratory Result Diagrams: 06/24/18 23:12 06/24/18 23:12 Laboratory results interpreted by me: 06/24/18 06/24/18 23:12 23:12 WBC 12.5 H RDW 17.7 H Eosinophils % 9.0 H Absolute Eosinophils 1.1 H BUN 32 H Creatinine 1.30 H Est GFR ( Amer) 51 L Est GFR (Non-Af Amer) 42 L Calcium 10.9 H Total Protein 8.7 H - Diagnostic Test Radiology reviewed: Image reviewed, Reports reviewed Radiology results interpreted by me: 06/24/18 23:49 Chest x-ray: No acute infiltrate or pneumothorax Abdominal x-ray: No evidence of obstruction or perforation Discharge - Discharge Clinical Impression: CVA, old, hemiparesis, Nausea vomiting and diarrhea COPD (chronic obstructive pulmonary disease) Qualifiers: COPD type: unspecified COPD Qualified Code(s): J44.9 - Chronic obstructive pulmonary disease, unspecified Atopic dermatitis Qualifiers: Atopic dermatitis type: unspecified Qualified Code(s): L20.9 - Atopic dermatitis, unspecified Condition: Good Disposition: HOME, SELF-CARE Additional Instructions: For your rash please take cetirizine 10 mg 3 times daily until the rash resolves. This appears to be likely allergic in origin. Your nausea vomiting and diarrhea appears recurrent and does not have an identified cause today. Your labs otherwise reassuring. Please continue to follow with your primary care doctor regarding this issue. Please return to the emergency room immediately if you develop a fever of greater than 100.4 F, persistent vomiting, pass out, no severe abdominal pain, or have any other symptoms that are worrisome to you. Prescriptions: Cetirizine HCl [Allergy] 10 mg PO TID #60 tablet Referrals: LETA PRIEST DO [Primary Care Provider] - Follow up tomorrow
[2018-06-24 23:21] LABS: ABSOLUTE BASOPHILS # (AUTO) 0.1 10^3/uL (0.0-0.2); ABSOLUTE EOSINOPHILS # (AUTO) 1.1 10^3/uL (0.0-0.6); ABSOLUTE LYMPHOCYTES (AUTO) 2.6 10^3/uL (0.5-4.7); ABSOLUTE MONOCYTES (AUTO) 0.5 10^3/uL (0.1-1.4); ABSOLUTE NEUT (AUTO) 8.1 10^3/uL (1.7-8.2); BASOPHILS % (AUTO) 0.5 % (0-2); HEMATOCRIT 39.5 % (36.0-47.0); HEMOGLOBIN 13.4 g/dL (12.0-15.5); LYMPHOCYTES % (AUTO) 21.3 % (13-45); MEAN CORPUSCULAR HEMOGLOBIN 27.8 pg (27.0-33.4); MEAN CORPUSCULAR HGB CONC 34.1 g/dL (32.0-36.0); MEAN CORPUSCULAR VOLUME 82 fl (80-97); MONOCYTES % (AUTO) 4.2 % (3-13); PLATELET COUNT 286 10^3/uL (150-450); RED BLOOD COUNT 4.83 10^6/uL (3.72-5.28); RED CELL DISTRIBUTION WIDTH 17.7 % (11.5-14.0); TOTAL CELLS COUNTED % (AUTO) 100 %; WHITE BLOOD COUNT 12.5 10^3/uL (4.0-10.5)
--- NOTE | 2018-06-24 23:26 | RADIOLOGY REPORT (SQ) ---
EXAM DESCRIPTION: XR CHEST 2 VIEWS COMPLETED DATE/TME: 06/24/2018 21:57 CLINICAL HISTORY: 57 years Female, cough COMPARISON: April 08, 2018. CT abdomen and pelvis, May 15, 2018. NUMBER OF VIEWS/TECHNIQUE: 2, Frontal, Lateral FINDINGS: Adequate lung volume, small chronic atelectasis-scar of the right costophrenic angle, normal cardiac silhouette, and intact bony thorax. Atherosclerotic vascular disease. IMPRESSION: No acute cardiopulmonary findings.
--- NOTE | 2018-06-24 23:28 | RADIOLOGY REPORT (SQ) ---
EXAM DESCRIPTION: XR ABDOMEN 2 VIEWS SUPINE ERECT COMPLETED DATE/TME: 06/24/2018 22:03 CLINICAL HISTORY: 57 years Female, abdominal pain COMPARISON: CT, May 15, 2018. NUMBER OF VIEWS/TECHNIQUE: 1 FINDINGS: Intestinal gas pattern is within normal limits. Paucity of bowel gas. Aortobiiliac graft. Surgical clips at the right upper abdominal quadrant. Small right chronic right basilar atelectasis scar. No suspicious calcification. Grossly intact skeletal structures. IMPRESSION: No acute findings.
[2018-06-24 23:32] LABS: ALANINE AMINOTRANSFERASE 20 U/L (9-52); ALBUMIN 4.5 g/dL (3.5-5.0); ALKALINE PHOSPHATASE 104 U/L (38-126); ANION GAP 12 (5-19); ASPARTATE AMINO TRANSFERASE 19 U/L (14-36); BILIRUBIN,DIRECT 0.4 mg/dL (0.0-0.4); BILIRUBIN,TOTAL 0.6 mg/dL (0.2-1.3); BLOOD UREA NITROGEN 32 mg/dL (7-20); CALCIUM 10.9 mg/dL (8.4-10.2); CARBON DIOXIDE 25 mmol/L (22-30); CHLORIDE 101 mmol/L (98-107); GLUCOSE 95 mg/dL (75-110); POTASSIUM 4.3 mmol/L (3.6-5.0); SODIUM 137.9 mmol/L (137-145); TOTAL PROTEIN 8.7 g/dL (6.3-8.2)
[2018-06-25 00:07] VITALS: BP 111/82
== END 2018-06-25 01:06 | disposition home or self-care (01) ==
LOC: ER 20:02
DX: L20.9 Atopic dermatitis, unspecified (principal); R11.2 Nausea with vomiting, unspecified; R19.7 Diarrhea, unspecified; J44.9 Chronic obstructive pulmonary disease, unspecified; I69.344 Monoplegia of lower limb following cerebral infarction affecting left non-dominant side; I69.341 Monoplegia of lower limb following cerebral infarction affecting right dominant side; N39.0 Urinary tract infection, site not specified; R10.30 Lower abdominal pain, unspecified; M25.559 Pain in unspecified hip; M54.5 Low back pain; G89.29 Other chronic pain; I10 Essential (primary) hypertension; F17.200 Nicotine dependence, unspecified, uncomplicated
CPT/HCPCS: 99284; 96372; 36415; 85025; 80053; 74019; 71046; J1885; J3490 ×2

== ENCOUNTER 2018-10-03 17:31 | Emergency (ER) | payer MEDICAID ==
[2018-10-03 18:37] LABS: ABSOLUTE BASOPHILS # (AUTO) 0.1 10^3/uL (0.0-0.2); ABSOLUTE EOSINOPHILS # (AUTO) 0.1 10^3/uL (0.0-0.6); ABSOLUTE LYMPHOCYTES (AUTO) 2.6 10^3/uL (0.5-4.7); ABSOLUTE MONOCYTES (AUTO) 0.8 10^3/uL (0.1-1.4); ABSOLUTE NEUT (AUTO) 10.5 10^3/uL (1.7-8.2); BASOPHILS % (AUTO) 0.9 % (0-2); HEMATOCRIT 41.7 % (36.0-47.0); HEMOGLOBIN 13.6 g/dL (12.0-15.5); LYMPHOCYTES % (AUTO) 18.5 % (13-45); MEAN CORPUSCULAR HEMOGLOBIN 26.9 pg (27.0-33.4); MEAN CORPUSCULAR HGB CONC 32.5 g/dL (32.0-36.0); MEAN CORPUSCULAR VOLUME 83 fl (80-97); MONOCYTES % (AUTO) 5.3 % (3-13); PLATELET COUNT 330 10^3/uL (150-450); RED BLOOD COUNT 5.05 10^6/uL (3.72-5.28); RED CELL DISTRIBUTION WIDTH 17.1 % (11.5-14.0); SEGMENTED NEUTROPHILS % (AUTO) 74.3 % (42-78); TOTAL CELLS COUNTED % (AUTO) 100 %; WHITE BLOOD COUNT 14.1 10^3/uL (4.0-10.5)
[2018-10-03 18:40] LABS: APPEARANCE,URINE CLEAR; BILIRUBIN,URINE SMALL (NEGATIVE); COLOR,URINE YELLOW; GLUCOSE, URINE NEGATIVE (NEGATIVE); KETONES,URINE TRACE mg/dL (NEGATIVE); LEUKOCYTE ESTERASE,URINE NEGATIVE (NEGATIVE); NITRITE,URINE NEGATIVE (NEGATIVE); PROTEIN,URINE 30 mg/dL (NEGATIVE); URINE SPECIFIC GRAVITY 1.025; UROBILINOGEN,URINE NEGATIVE mg/dL (<2.0)
[2018-10-03] MEDS ORDERED: NORMAL SALINE 1000 ML 1,000 ML IV ONE ×2 (18:52→20:59)
[2018-10-03 18:53] LABS: ALANINE AMINOTRANSFERASE 18 U/L (9-52); ALBUMIN 4.4 g/dL (3.5-5.0); ALKALINE PHOSPHATASE 134 U/L (38-126); ANION GAP 14 (5-19); ASPARTATE AMINO TRANSFERASE 17 U/L (14-36); BILIRUBIN,DIRECT 2.1 mg/dL (0.0-0.4); BILIRUBIN,TOTAL 2.2 mg/dL (0.2-1.3); BLOOD UREA NITROGEN 30 mg/dL (7-20); CALCIUM 10.4 mg/dL (8.4-10.2); CARBON DIOXIDE 19 mmol/L (22-30); CHLORIDE 108 mmol/L (98-107); GLUCOSE 75 mg/dL (75-110); POTASSIUM 4.6 mmol/L (3.6-5.0); TOTAL PROTEIN 7.7 g/dL (6.3-8.2)
[2018-10-03] MEDS ORDERED: ONDANSETRON HCL INJ/PF 4 MG/2 ML SDV IV ONE (18:53)
[2018-10-03] MEDS ORDERED: MORPHINE SULFATE 10 MG/ML INJ IV ONE (18:59)
--- NOTE | 2018-10-03 19:15 | ER Document Report ---
ED General - General Chief Complaint: Nausea/Vomiting/Diarrhea Stated Complaint: DIARRHEA Time Seen by Provider: 10/03/18 18:48 Primary Care Provider: LETA PRIEST DO [Primary Care Provider] - 10/05/18 TRAVEL OUTSIDE OF THE [place] IN LAST 30 DAYS: No - HPI Notes: Patient is a 58-year-old female that presents to the emergency department for chief complaint of abdominal pain, vomiting and diarrhea. Patient reports symptoms started 1.5 weeks ago. She states she has had diffuse crampy abdominal pain that has become more frequent and intense in nature. She states that the pain is all over and seems worse with diarrhea. She states she has had frequent thin clear diarrheal episodes increasing in frequency over the last week and a half as well. She is currently having 6 bowel movements daily. She reports nausea and vomiting 2-3 times a day. She denies any fevers or chi lls. She denies any relieving factors to her symptoms and states she has tried taking Imodium for the diarrhea with no change. She states she is now feeling dehydrated and having a difficult time to drinking liquids. Patient does report C. difficile colitis 4 or 5 months ago and states this feels similar. She is not currently on any antibiotics. Past Medical History: Hypertension, hyperlipidemia Past Surgical History: Cholecystectomy Social History: Daily tobacco. Denies drug and alcohol use Family History: Reviewed and noncontributory for presenting illness Allergies: Reviewed, see documented allergy list. REVIEW OF SYSTEMS: CONSTITUTIONAL : No fever No chills No diaphoresis No recent illness EENT: No vision changes No congestion No sore throat CARDIOVASCULAR: No chest pain No palpitations RESPIRATORY: No shortness of breath No cough No difficulty breathing GASTROINTESTINAL: abdominal pain nausea vomiting diarrhea GENITOURINARY: No dysuria No hematuria No difficulty urinating MUSCULOSKELETAL: No back pain No leg pain No arm pain SKIN: No rashes No lesions LYMPHATIC: No swollen, enlarged glands. NEUROLOGICAL: No lightheadedness No headache No weakness No paresthesias PSYCHIATRIC: No anxiety No depression PHYSICAL EXAMINATION: Vital signs reviewed, nursing noted reviewed. GENERAL: Well-appearing, well-nourished and in no acute distress. HEAD: Atraumatic, normocephalic. EYES: Eyes appear normal, extraocular movements intact, sclera anicteric, conjunctiva are normal. ENT: nares patent, oropharynx clear without exudates. Dry mucous membranes. NECK: Normal range of motion, supple without lymphadenopathy LUNGS: Breath sounds clear to auscultation bilaterally and equal. No wheezes rales or rhonchi. HEART: Tachycardic rate and regular rhythm without murmurs ABDOMEN: Soft, diffusely tender worse in the right upper and right lower quadrant. No rebound, guarding, or rigidity. No masses appreciated. EXTREMITIES: Nontender, good range of motion, no pitting or edema. NEUROLOGICAL: No focal neurological deficits. Moves all extremities spontaneously Motor and sensory grossly intact on exam. PSYCH: Normal mood, normal affect. SKIN: Warm, Dry, normal turgor, no rashes or lesions noted on exposed skin - Related Data Allergies/Adverse Reactions: No Known Allergies Allergy (Verified 05/15/18 10:38) Past Medical History - Social History Smoking Status: Never Smoker Chew tobacco use (# tins/day): No Frequency of alcohol use: None Drug Abuse: None Family History: COPD, Hypertension Patient has suicidal ideation: No Patient has homicidal ideation: No - Past Medical History Cardiac Medical History: Reports: Hx Hypercholesterolemia, Hx Hypertension Pulmonary Medical History: Reports: Hx Bronchitis, Hx COPD, Hx Pneumonia Renal/ Medical History: Denies: Hx Peritoneal Dialysis Musculoskeletal Medical History: Reports Hx Arthritis Psychiatric Medical History: Reports: Hx Depression Past Surgical History: Reports: Hx Cholecystectomy, Hx Hysterectomy, Hx Tubal Li gation - Immunizations Hx Diphtheria, Pertussis, Tetanus Vaccination: Yes Hx Pneumococcal Vaccination: 01/29/15 Physical Exam - Vital signs Vitals: Temp Pulse Resp BP Pulse Ox 98.6 F 111 H 18 171/80 H 96 10/03/18 17:35 10/03/18 17:35 10/03/18 17:35 10/03/18 17:35 10/03/18 17:35 Course - Re-evaluation Re-evalutation: 10/03/18 19:13 Vitals reviewed. Nursing notes reviewed. Patient is tachycardic at presentation and appears dehydrated. She was started on IV fluids, Zofran and morphine for symptomatic management. Patient has tried Imodium and Phenergan at home without improvement of symptoms. She does have a history of C. difficile and C. difficile has been ordered. Her lab work shows a leukocytosis. Patient also has slight elevation in BUN likely related to her dehydration. Creatinine is normal with no significant electrolyte derangements. She has elevated b ilirubin and alk phos which may be reactive from the ongoing vomiting. CT scan of the abdomen has been ordered to further evaluate her abdominal pain. Laboratory 10/03/18 10/03/18 10/03/18 18:31 18:31 18:31 WBC 14.1 H RBC 5.05 Hgb 13.6 Hct 41.7 MCV 83 MCH 26.9 L MCHC 32.5 RDW 17.1 H Plt Count 330 Seg Neutrophils % 74.3 Lymphocytes % 18.5 Monocytes % 5.3 Eosinophils % 1.0 Basophils % 0.9 Absolute Neutrophils 10.5 H Absolute Lymphocytes 2.6 Absolute Monocytes 0.8 Absolute Eosinophils 0.1 Absolute Basophils 0.1 Sodium 141.0 Potassium 4.6 Chloride 108 H Carbon Dioxide 19 L Anion Gap 14 BUN 30 H Creatinine 1.17 Est GFR ( Amer) 57 L Est GFR (Non-Af Amer) 47 L Glucose 75 Calcium 10.4 H Total Bilirubin 2.2 H Direct Bilirubin 2.1 H Neonat Total Bilirubin Not Reportable Neonat Direct Bilirubin Not Reportable Neonat Indirect Bili Not Reportable AST 17 ALT 18 Alkaline Phosphatase 134 H Total Protein 7.7 Albumin 4.4 Lipase Urine Color YELLOW Urine Appearance CLEAR Urine pH 5.0 Ur Specific [place] 1.025 Urine Protein 30 H Urine Glucose (UA) NEGATIVE Urine Ketones TRACE H Urine Blood NEGATIVE Urine Nitrite NEGATIVE Urine Bilirubin SMALL H Urine Urobilinogen NEGATIVE Ur Leukocyte Esterase NEGATIVE Urine WBC (Auto) 5 Urine RBC (Auto) 19 U Hyaline Cast (Auto) 1 Squamous Epi Cells Auto 1 Urine Mucus (Auto) RARE Urine Ascorbic Acid NEGATIVE 10/03/18 18:50 WBC RBC Hgb Hct MCV MCH MCHC RDW Plt Count Seg Neutrophils % Lymphocytes % Monocytes % Eosinophils % Basophils % Absolute Neutrophils Absolute Lymphocytes Absolute Monocytes Absolute Eosinophils Absolute Basophils Sodium Potassium Chloride Carbon Dioxide Anion Gap BUN Creatinine Est GFR ( Amer) Est GFR (Non-Af Amer) Glucose Calcium Total Bilirubin Direct Bilirubin Neonat Total Bilirubin Neonat Direct Bilirubin Neonat Indirect Bili AST ALT Alkaline Phosphatase Total Protein Albumin Lipase 57.1 Urine Color Urine Appearance Urine pH Ur Specific [place] Urine Protein Urine Glucose (UA) Urine Ketones Urine Blood Urine Nitrite Urine Bilirubin Urine Urobilinogen Ur Leukocyte Esterase Urine WBC (Auto) Urine RBC (Auto) U Hyaline Cast (Auto) Squamous Epi Cells Auto Urine Mucus (Auto) Urine Ascorbic Acid 10/03/18 22:36 Laboratory 10/03/18 10/03/18 10/03/18 18:31 18:31 18:31 WBC 14.1 H RBC 5.05 Hgb 13.6 Hct 41.7 MCV 83 MCH 26.9 L MCHC 32.5 RDW 17.1 H Plt Count 330 Seg Neutrophils % 74.3 Lymphocytes % 18.5 Monocytes % 5.3 Eosinophils % 1.0 Basophils % 0.9 Absolute Neutrophils 10.5 H Absolute Lymphocytes 2.6 Absolute Monocytes 0.8 Absolute Eosinophils 0.1 Absolute Basophils 0.1 Sodium 141.0 Potassium 4.6 Chloride 108 H Carbon Dioxide 19 L Anion Gap 14 BUN 30 H Creatinine 1.17 Est GFR ( Amer) 57 L Est GFR (Non-Af Amer) 47 L Glucose 75 Lactic Acid Calcium 10.4 H Total Bilirubin 2.2 H Direct Bilirubin 2.1 H Neonat Total Bilirubin Not Reportable Neonat Direct Bilirubin Not Reportable Neonat Indirect Bili Not Reportable AST 17 ALT 18 Alkaline Phosphatase 134 H Total Protein 7.7 Albumin 4.4 Lipase Urine Color YELLOW Urine Appearance CLEAR Urine pH 5.0 Ur Specific [place] 1.025 Urine Protein 30 H Urine Glucose (UA) NEGATIVE Urine Ketones TRACE H Urine Blood NEGATIVE Urine Nitrite NEGATIVE Urine Bilirubin SMALL H Urine Urobilinogen NEGATIVE Ur Leukocyte Esterase NEGATIVE Urine WBC (Auto) 5 Urine RBC (Auto) 19 U Hyaline Cast (Auto) 1 Squamous Epi Cells Auto 1 Urine Mucus (Auto) RARE Urine Ascorbic Acid NEGATIVE C. difficile Tox (PCR) 10/03/18 10/03/18 10/03/18 18:50 19:00 21:09 WBC RBC Hgb Hct MCV MCH MCHC RDW Plt Count Seg Neutrophils % Lymphocytes % Monocytes % Eosinophils % Basophils % Absolute Neutrophils Absolute Lymphocytes Absolute Monocytes Absolute Eosinophils Absolute Basophils Sodium Potassium Chloride Carbon Dioxide Anion Gap BUN Creatinine Est GFR ( Amer) Est GFR (Non-Af Amer) Glucose Lactic Acid 0.6 L Calcium Total Bilirubin Direct Bilirubin Neonat Total Bilirubin Neonat Direct Bilirubin Neonat Indirect Bili AST ALT Alkaline Phosphatase Total Protein Albumin Lipase 57.1 Urine Color Urine Appearance Urine pH Ur Specific [place] Urine Protein Urine Glucose (UA) Urine Ketones Urine Blood Urine Nitrite Urine Bilirubin Urine Urobilinogen Ur Leukocyte Esterase Urine WBC (Auto) Urine RBC (Auto) U Hyaline Cast (Auto) Squamous Epi Cells Auto Urine Mucus (Auto) Urine Ascorbic Acid C. difficile Tox (PCR) NEGATIVE Abdomen/Pelvis CT 10/03/18 19:11 IMPRESSION: Left adrenal mass which is stable when compared to 2015 studies Abdominal aortic aneurysm with stent graft. No evidence of endoleak. The aneurysm sac is smaller than on earlier exams. Recommend continued follow-up as per vascular surgery protocol Atrophic left kidney with findings concerning for possible thrombosis or severe stenosis of the left renal artery stent Gas in the endometrial canal. The possibility of infection is not excluded Additional changes as above Patient C. difficile is negative. After 1 L of IV fluids her heart rate is now normal at 89. Her blood pressure has remained stable. Patient has chronic changes on her CT scan with no acute process. Her elevated LFTs and WBC count are likely secondary to her vomiting and mild dehydration which is now improved. She has not vomited while in the emergency room. She has only had one bowel movement throughout her stay here. At this point I feel she is stable for discharge. She will follow with her primary care doctor in the next 2 to 3 days for reevaluation of her elevated LFTs and ongoing diarrheal illness. She will return for new or worsening symptoms. She is stable for discharge. - Vital Signs Vital signs: Temp Pulse Resp BP Pulse Ox 98.6 F 111 H 16 149/89 H 96 10/03/18 17:35 10/03/18 17:35 10/03/18 21:01 10/03/18 21:01 10/03/18 21:01 - Laboratory Result Diagrams: 10/03/18 18:31 10/03/18 18:31 Laboratory results interpreted by me: 10/03/18 10/03/18 10/03/18 18:31 18:31 18:31 WBC 14.1 H MCH 26.9 L RDW 17.1 H Absolute Neutrophils 10.5 H Chloride 108 H Carbon Dioxide 19 L BUN 30 H Est GFR ( Amer) 57 L Est GFR (Non-Af Amer) 47 L Lactic Acid Calcium 10.4 H Total Bilirubin 2.2 H Direct Bilirubin 2.1 H Alkaline Phosphatase 134 H Urine Protein 30 H Urine Ketones TRACE H Urine Bilirubin SMALL H 10/03/18 19:00 WBC MCH RDW Absolute Neutrophils Chloride Carbon Dioxide BUN Est GFR ( Amer) Est GFR (Non-Af Amer) Lactic Acid 0.6 L Calcium Total Bilirubin Direct Bilirubin Alkaline Phosphatase Urine Protein Urine Ketones Urine Bilirubin Discharge - Discharge Clinical Impression: Dehydration, Elevated bilirubin Diarrhea Qualifiers: Diarrhea type: unspecified type Qualified Code(s): R19.7 - Diarrhea, unspecified Leukocytosis (leucocytosis) Qualifiers: Leukocytosis type: unspecified Qualified Code(s): D72.829 - Elevated white blood cell count, unspecified Condition: Stable Disposition: HOME, SELF-CARE Instructions: Diarrhea, Nonspecific ([facility]), Vomiting ([facility]) Additional Instructions: Please return to the emergency department if you have any worsening, or concern of your symptoms. Please return to the emergency department if you develop chest pain, difficulty breathing, severe abdominal pain, or ongoing vomiting. Please follow-up with your primary care physician in 2-3 days and any other recommended physicians. If prescribed, take all medications as directed. If you have any questions or concerns do not hesitate to return the emergency department for evaluation. Increase the amount of water you are drinking daily to help prevent dehydration Have your primary care doctor recheck your bilirubin and WBC count in the next 2 to 3 days. Referrals: LETA PRIEST DO [Primary Care Provider] - 10/05/18
[2018-10-03] MEDS ORDERED: OXYCODONE-ACETAMINOPHEN 5-325 MG TABLET PO ONE (20:59)
--- NOTE | 2018-10-03 21:26 | RADIOLOGY REPORT (SQ) ---
EXAM DESCRIPTION: CT ABDOMEN PELVIS WITH IV CONTRAST COMPLETED DATE/TME: 10/03/2018 19:11 CLINICAL HISTORY: 58 years Female abdominal pain COMPARISON: 05/15/2018. TECHNIQUE: Contiguous axial images obtained through the abdomen and pelvis following IV contrast. Reformatted images obtained. This exam was performed according to our department optimization program which includes automated exposure control, adjustment of the mA and/or kv according to patient size and/or use of iterative reconstruction technique. FINDINGS: The liver appears unremarkable. The spleen and pancreas appear unremarkable. There is a 3.5 cm low-attenuation left adrenal mass which is stable.. This was present on examinations as far back as 2015 and appears similar. There is hypertrophy of the right kidney. Renal atrophy on the left. There are stents in place in the proximal renal arteries. 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 There is an accessory left renal artery which supplies the kidney. The gallbladder is absent. There is an aortic stent graft through the abdominal aortic aneurysm. Aneurysm sac measures 5.8 x 5.4 cm. This is slightly smaller than on the previous examination. The delayed images show no evidence of endoleak. Calcification is present in the iliac arteries bilaterally. No bowel obstruction. The appendix is not clearly identified. Small amount of gas is present in the endometrium.. Infection is not excluded.. No significant free fluid noted. IMPRESSION: Left adrenal mass which is stable when compared to 2015 studies Abdominal aortic aneurysm with stent graft. No evidence of endoleak. The aneurysm sac is smaller than on earlier exams. Recommend continued follow-up as per vascular surgery protocol Atrophic left kidney with findings concerning for possible thrombosis or severe stenosis of the left renal artery stent Gas in the endometrial canal. The possibility of infection is not excluded Additional changes as above
[2018-10-03 23:32] VITALS: BP 137/78
== END 2018-10-03 23:31 | disposition home or self-care (01) ==
LOC: ER 17:31
DX: E86.0 Dehydration (principal); D72.829 Elevated white blood cell count, unspecified; R19.7 Diarrhea, unspecified; E80.6 Other disorders of bilirubin metabolism; R11.2 Nausea with vomiting, unspecified; R10.9 Unspecified abdominal pain
CPT/HCPCS: 99285; 51701; 36415; 87040; 83690; 85025; 80053; 81001; 87493; 83605; 74177; J2270; J2405; J7030

== ENCOUNTER 2018-10-11 14:10 | Inpatient (IN) | payer MEDICAID ==
[2018-10-11] MEDS ORDERED: NORMAL SALINE 1000 ML 1,000 ML IV ONE ×3 (15:07→19:33)
[2018-10-11] MEDS ORDERED: MORPHINE SULFATE 10 MG/ML INJ IV ONE (15:18)
[2018-10-11] MEDS ORDERED: ONDANSETRON HCL INJ/PF 4 MG/2 ML SDV IV ONE (15:18)
--- NOTE | 2018-10-11 15:22 | ER Document Report ---
ED General - General Chief Complaint: Nausea/Vomiting/Diarrhea Stated Complaint: FLANK PAIN Time Seen by Provider: 10/11/18 14:58 Mode of Arrival: Medic Information source: Patient, Relative, Emergency Med Personnel, [facility] Records Notes: 58-year-old female with hypertension, COPD, hyperlipidemia, repaired AAA previous CVA which has left her nonambulatory presents via EMS from home with complaint of abdominal pain, nausea, vomiting, diarrhea that started 4 weeks prior to arrival. Patient denies any recent antibiotic use, recent travel. She reports 4-5 episodes of vomiting and diarrhea per day. Patient was seen by her primary care physician 4 days ago and caregiver states that she has been taking stool softeners. TRAVEL OUTSIDE OF THE [place] IN LAST 30 DAYS: No - HPI Onset: Other Onset/Duration: Gradual, Persistent, Worse Quality of pain: Cramping Severity: Moderate Associated symptoms: Diarrhea, Nausea, Vomiting. denies: Chest pain, Fever, Headache, Shortness of breath Exacerbated by: Denies Relieved by: Denies Similar symptoms previously: Yes Recently seen / treated by doctor: Yes - Related Data Allergies/Adverse Reactions: No Known Allergies Allergy (Verified 05/15/18 10:38) Past Medical History - General Information source: Patient, Relative, Emergency Med Personnel, [facility] Records - Social History Smoking Status: Current Every Day Smoker Cigarette use (# per day): Yes - 20 Smoking Education Provided: Yes - Smoking cessation counseling was provided for 4 minutes at the bedside Frequency of alcohol use: None Drug Abuse: None Lives with: Family Family History: COPD, Hypertension - Past Medical History Cardiac Medical History: Reports: Hx Hypercholesterolemia, Hx Hypertension Pulmonary Medical History: Reports: Hx Bronchitis, Hx COPD, Hx Pneumonia Renal/ Medical History: Denies: Hx Peritoneal Dialysis Musculoskeletal Medical History: Reports Hx Arthritis Psychiatric Medical History: Reports: Hx Depression Past Surgical History: Reports: Hx Cholecystectomy, Hx Hysterectomy, Hx Tubal Ligation - Immunizations Hx Diphtheria, Pertussis, Tetanus Vaccination: Yes Hx Pneumococcal Vaccination: 01/29/15 Review of Systems - Review of Systems Notes: REVIEW OF SYSTEMS: CONSTITUTIONAL : Denies fever, chills, or sweats. Denies recent illness. Denies weight loss, recent hospitalizations. EENT: Denies visual changes, eye pain. Denies sore throat, oral lesions, difficulty swallowing. CARDIOVASCULAR: Denies chest pain. Denies palpitations. Denies lower extremity edema. RESPIRATORY: Denies cough. Denies shortness of breath, wheezing. GASTROINTESTINAL: Denies abdominal distention. + nausea, vomiting, diarrhea. Denies blood in vomitus, stools, or per rectum. Denies black, tarry stools. Denies constipation. GENITOURINARY: Denies difficulty urinating, painful urination, frequency, blood in urine, or vaginal discharge. MUSCULOSKELETAL: Denies back or neck pain or stiffness. Denies joint pain or swelling. SKIN: Denies rash, lesions or sores. HEMATOLOGIC : Denies easy bruising or bleeding. LYMPHATIC: Denies swollen glands. NEUROLOGICAL: Denies confusion or altered mental status. Denies loss of consciousness. Denies dizziness or lightheadedness. Denies headache. . Denies problems difficulty with ambulation, slurred speech. Denies sensory loss, numbness, or tingling. Denies seizures. PSYCHIATRIC: Denies anxiety or stress. Denies depression, suicidal ideation, or homicidal ideation. Denies visual or auditory hallucinations. Physical Exam - Vital signs Vitals: Resp 18 10/11/18 14:26 - Notes Notes: PHYSICAL EXAMINATION: GENERAL: Ill-appearing, well-nourished mild distress. HEAD: Atraumatic, normocephalic. EYES: Pupils equal round and reactive to light, extraocular movements intact, conjunctiva are normal. ENT: Nares patent, oropharynx clear without exudates. Dry mucous membranes. NECK: Normal range of motion, supple without lymphadenopathy LUNGS: Breath sounds clear to auscultation bilaterally and equal. No wheezes rales or rhonchi. HEART: Regular rate and rhythm without murmurs ABDOMEN: Tenderness with palpation to the right lower quadrant. No guarding, no rebound. No masses appreciated. Female : deferred Musculoskeletal: Normal range of motion, no pitting or edema. No cyanosis. NEUROLOGICAL: Cranial nerves grossly intact. Normal speech, normal gait. Normal sensory, motor exams PSYCH: Normal mood, normal affect. SKIN: Sacral decubitus ulcer Course - Re-evaluation Re-evalutation: Temp Pulse Resp BP Pulse Ox 97.6 F 85 13 85/56 L 95 10/11/18 14:27 10/11/18 14:27 10/11/18 14:27 10/11/18 14:27 10/11/18 14:27 Laboratory 10/11/18 10/11/18 10/11/18 16:08 16:08 16:08 WBC 29.4 H RBC 4.38 Hgb 11.7 L Hct 37.2 MCV 85 MCH 26.6 L MCHC 31.4 L RDW 17.5 H Plt Count 300 Total Counted 100 Seg Neutrophils % Not Reportable Seg Neuts % (Manual) 85 H Band Neutrophils % 7 H Lymphocytes % Not Reportable Lymphocytes % (Manual) 7 L Monocytes % Not Reportable Monocytes % (Manual) 1 L Eosinophils % Not Reportable Eosinophils % (Manual) 0 Basophils % Not Reportable Basophils % (Manual) 0 Absolute Neutrophils Not Reportable Abs Neuts (Manual) 27.0 H Absolute Lymphocytes Not Reportable Abs Lymphs (Manual) 2.1 Absolute Monocytes Not Reportable Abs Monocytes (Manual) 0.3 Absolute Eosinophils Not Reportable Absolute Eos (Manual) 0.0 Absolute Basophils Not Reportable Abs Basophils (Manual) 0.0 Toxic Vacuolation PRESENT Platelet Comment ADEQUATE Hypochromasia SLIGHT Poikilocytosis SLIGHT Anisocytosis 1+ PT Cancelled INR Cancelled VBG pH VBG pCO2 VBG HCO3 VBG Base Excess Sodium 135.0 L Potassium 4.0 Chloride 111 H Carbon Dioxide 14 L Anion Gap 10 BUN 36 H Creatinine 2.46 H Est GFR ( Amer) 24 L Est GFR (Non-Af Amer) 20 L Glucose 91 Lactic Acid Calcium 8.4 Magnesium Total Bilirubin 0.9 Direct Bilirubin 0.9 H Neonat Total Bilirubin Not Reportable Neonat Direct Bilirubin Not Reportable Neonat Indirect Bili Not Reportable AST 24 ALT 23 Alkaline Phosphatase 139 H Troponin I Total Protein 5.7 L Albumin 3.1 L Urine Color Urine Appearance Urine pH Ur Specific [place] Urine Protein Urine Glucose (UA) Urine Ketones Urine Blood Urine Nitrite Urine Bilirubin Urine Urobilinogen Ur Leukocyte Esterase Urine WBC (Auto) Urine RBC (Auto) Urine Bacteria (Auto) Urine WBC Clumps Squamous Epi Cells Auto U Non-Squamous Epis Auto Urine Mucus (Auto) Urine Ascorbic Acid Urine Opiates Screen Urine Methadone Screen Ur Barbiturates Screen Ur Phencyclidine Scrn Ur Amphetamines Screen U Benzodiazepines Scrn Urine Cocaine Screen U Marijuana (THC) Screen 10/11/18 10/11/18 10/11/18 16:08 16:08 16:19 WBC RBC Hgb Hct MCV MCH MCHC RDW Plt Count Total Counted Seg Neutrophils % Seg Neuts % (Manual) Band Neutrophils % Lymphocytes % Lymphocytes % (Manual) Monocytes % Monocytes % (Manual) Eosinophils % Eosinophils % (Manual) Basophils % Basophils % (Manual) Absolute Neutrophils Abs Neuts (Manual) Absolute Lymphocytes Abs Lymphs (Manual) Absolute Monocytes Abs Monocytes (Manual) Absolute Eosinophils Absolute Eos (Manual) Absolute Basophils Abs Basophils (Manual) Toxic Vacuolation Platelet Comment Hypochromasia Poikilocytosis Anisocytosis PT INR VBG pH 7.12 L* VBG pCO2 48.4 VBG HCO3 15.5 L VBG Base Excess -13.9 Sodium Potassium Chloride Carbon Dioxide Anion Gap BUN Creatinine Est GFR ( Amer) Est GFR (Non-Af Amer) Glucose Lactic Acid 2.1 Calcium Magnesium 1.4 L Total Bilirubin Direct Bilirubin Neonat Total Bilirubin Neonat Direct Bilirubin Neonat Indirect Bili AST ALT Alkaline Phosphatase Troponin I Total Protein Albumin Urine Color Urine Appearance Urine pH Ur Specific [place] Urine Protein Urine Glucose (UA) Urine Ketones Urine Blood Urine Nitrite Urine Bilirubin Urine Urobilinogen Ur Leukocyte Esterase Urine WBC (Auto) Urine RBC (Auto) Urine Bacteria (Auto) Urine WBC Clumps Squamous Epi Cells Auto U Non-Squamous Epis Auto Urine Mucus (Auto) Urine Ascorbic Acid Urine Opiates Screen Urine Methadone Screen Ur Barbiturates Screen Ur Phencyclidine Scrn Ur Amphetamines Screen U Benzodiazepines Scrn Urine Cocaine Screen U Marijuana (THC) Screen 10/11/18 10/11/18 10/11/18 17:21 17:21 17:40 WBC RBC Hgb Hct MCV MCH MCHC RDW Plt Count Total Counted Seg Neutrophils % Seg Neuts % (Manual) Band Neutrophils % Lymphocytes % Lymphocytes % (Manual) Monocytes % Monocytes % (Manual) Eosinophils % Eosinophils % (Manual) Basophils % Basophils % (Manual) Absolute Neutrophils Abs Neuts (Manual) Absolute Lymphocytes Abs Lymphs (Manual) Absolute Monocytes Abs Monocytes (Manual) Absolute Eosinophils Absolute Eos (Manual) Absolute Basophils Abs Basophils (Manual) Toxic Vacuolation Platelet Comment Hypochromasia Poikilocytosis Anisocytosis PT INR VBG pH VBG pCO2 VBG HCO3 VBG Base Excess Sodium Potassium Chloride Carbon Dioxide Anion Gap BUN Creatinine Est GFR ( Amer) Est GFR (Non-Af Amer) Glucose Lactic Acid Calcium Magnesium Total Bilirubin Direct Bilirubin Neonat Total Bilirubin Neonat Direct Bilirubin Neonat Indirect Bili AST ALT Alkaline Phosphatase Troponin I < 0.012 Total Protein Albumin Urine Color JACQUES Urine Appearance TURBID Urine pH 5.0 Ur Specific [place] 1.018 Urine Protein 100 H Urine Glucose (UA) NEGATIVE Urine Ketones NEGATIVE Urine Blood SMALL H Urine Nitrite NEGATIVE Urine Bilirubin NEGATIVE Urine Urobilinogen NEGATIVE Ur Leukocyte Esterase LARGE H Urine WBC (Auto) >182 Urine RBC (Auto) 14 Urine Bacteria (Auto) 3+ Urine WBC Clumps MANY Squamous Epi Cells Auto 18 U Non-Squamous Epis Auto 1 Urine Mucus (Auto) FEW Urine Ascorbic Acid NEGATIVE Urine Opiates Screen UNCONFIRMED POSITIVE Urine Methadone Screen NEGATIVE Ur Barbiturates Screen NEGATIVE Ur Phencyclidine Scrn NEGATIVE Ur Amphetamines Screen NEGATIVE U Benzodiazepines Scrn NEGATIVE Urine Cocaine Screen NEGATIVE U Marijuana (THC) Screen NEGATIVE 10/11/18 17:40 WBC RBC Hgb Hct MCV MCH MCHC RDW Plt Count Total Counted Seg Neutrophils % Seg Neuts % (Manual) Band Neutrophils % Lymphocytes % Lymphocytes % (Manual) Monocytes % Monocytes % (Manual) Eosinophils % Eosinophils % (Manual) Basophils % Basophils % (Manual) Absolute Neutrophils Abs Neuts (Manual) Absolute Lymphocytes Abs Lymphs (Manual) Absolute Monocytes Abs Monocytes (Manual) Absolute Eosinophils Absolute Eos (Manual) Absolute Basophils Abs Basophils (Manual) Toxic Vacuolation Platelet Comment Hypochromasia Poikilocytosis Anisocytosis PT 14.3 INR 1.11 VBG pH VBG pCO2 VBG HCO3 VBG Base Excess Sodium Potassium Chloride Carbon Dioxide Anion Gap BUN Creatinine Est GFR ( Amer) Est GFR (Non-Af Amer) Glucose Lactic Acid Calcium Magnesium Total Bilirubin Direct Bilirubin Neonat Total Bilirubin Neonat Direct Bilirubin Neonat Indirect Bili AST ALT Alkaline Phosphatase Troponin I Total Protein Albumin Urine Color Urine Appearance Urine pH Ur Specific [place] Urine Protein Urine Glucose (UA) Urine Ketones Urine Blood Urine Nitrite Urine Bilirubin Urine Urobilinogen Ur Leukocyte Esterase Urine WBC (Auto) Urine RBC (Auto) Urine Bacteria (Auto) Urine WBC Clumps Squamous Epi Cells Auto U Non-Squamous Epis Auto Urine Mucus (Auto) Urine Ascorbic Acid Urine Opiates Screen Urine Methadone Screen Ur Barbiturates Screen Ur Phencyclidine Scrn Ur Amphetamines Screen U Benzodiazepines Scrn Urine Cocaine Screen U Marijuana (THC) Screen Chest X-Ray 10/11/18 15:16 IMPRESSION: No acute abnormality of the lungs in AP projection. Abdomen/Pelvis CT 10/11/18 15:18 IMPRESSION: STABLE CHRONIC FINDINGS. AORTOILIAC ENDOGRAFT AND BILATERAL RENAL STENTS, LEFT ADRENAL MASS, CHRONIC ATROPHY OF THE LEFT KIDNEY. ALL UNCHANGED. NO ACUTE PROCESS IN THE ABDOMEN OR PELVIS. Temp Pulse Resp BP Pulse Ox 97.8 F 85 14 86/66 L 100 10/11/18 19:00 10/11/18 14:27 10/11/18 20:30 10/11/18 20:30 10/11/18 20:01 10/11/18 15:21 58-year-old female presents via EMS with complaint of abdominal pain, nausea, vomiting and diarrhea that have been ongoing for 1 month. Patient is hypotensive upon arrival. She is afebrile, does not appear toxic but does appear dehydrated. Abdominal exam significant for right lower quadrant tender ness. Fluid resuscitation initiated. Septic work-up will be obtained. Patient is receiving IV fluids, morphine, Zofran. Patient has been difficult to maintain IV access and is refusing central line placement. Patient does have 2 IVs now. She did receive Rocephin for her urinary tract infection. CBC does show a leukocytosis with a bandemia. CMP shows worsening renal function with a creatinine of 2.36. Urinalysis consistent with urinary tract infection. VBG does show the patient to be acidotic. Cardiac enzymes within normal limits. Patient consistently asks for pain medication despite being asleep on multiple re-evaluations. She is adamant that she does not want a central line and her is declining. CT of the abdomen and pelvis shows stable chronic findings. Patient will be admitted to the ICU. 10/11/18 21:03 10/11/18 21:27 Spoke to patient and the patient's again regarding central line placement and they are still refusing. Patient is requesting that we attempt another peripheral line. - Vital Signs Vital signs: Temp Pulse Resp BP Pulse Ox 97.8 F 85 10 L 84/59 L 100 10/11/18 19:00 10/11/18 14:27 10/11/18 21:33 10/11/18 21:33 10/11/18 21:33 - Laboratory Result Diagrams: 10/11/18 16:08 10/11/18 16:08 Laboratory results interpreted by me: 10/11/18 10/11/18 10/11/18 16:08 16:08 16:08 WBC 29.4 H Hgb 11.7 L MCH 26.6 L MCHC 31.4 L RDW 17.5 H Seg Neuts % (Manual) 85 H Band Neutrophils % 7 H Lymphocytes % (Manual) 7 L Monocytes % (Manual) 1 L Abs Neuts (Manual) 27.0 H VBG pH 7.12 L* VBG HCO3 15.5 L Sodium 135.0 L Chloride 111 H Carbon Dioxide 14 L BUN 36 H Creatinine 2.46 H Est GFR ( Amer) 24 L Est GFR (Non-Af Amer) 20 L Magnesium Direct Bilirubin 0.9 H Alkaline Phosphatase 139 H Total Protein 5.7 L Albumin 3.1 L Urine Protein Urine Blood Ur Leukocyte Esterase 10/11/18 10/11/18 16:08 17:21 WBC Hgb MCH MCHC RDW Seg Neuts % (Manual) Band Neutrophils % Lymphocytes % (Manual) Monocytes % (Manual) Abs Neuts (Manual) VBG pH VBG HCO3 Sodium Chloride Carbon Dioxide BUN Creatinine Est GFR ( Amer) Est GFR (Non-Af Amer) Magnesium 1.4 L Direct Bilirubin Alkaline Phosphatase Total Protein Albumin Urine Protein 100 H Urine Blood SMALL H Ur Leukocyte Esterase LARGE H - Diagnostic Test Radiology reviewed: Image reviewed, Reports reviewed - EKG Interpretation by Ok EKG shows normal: Sinus rhythm Rate: Normal Rhythm: NSR When compared to previous EKG there are: No significant change Critical Care Note - Critical Care Note Total time excluding time spent on procedures (mins): 45 - Minutes of critical care time spent in direct contact evaluating and reevaluating the patient, treating symptoms, reviewing labs and studies and speaking with family and consultants excluding any procedures Discharge - Discharge Clinical Impression: CKD (chronic kidney disease), stage III, Respiratory acidosis, CVA, old, hemiparesis UTI (urinary tract infection) Qualifiers: Urinary tract infection type: site unspecified Hematuria presence: with hematuria Qualified Code(s): N39.0 - Urinary tract infection, site not specified; R31.9 - Hematuria, unspecified Sepsis Qualifiers: Sepsis type: sepsis due to unspecified organism Qualified Code(s): A41.9 - Sepsis, unspecified organism Hypotension Qualifiers: Hypotension type: unspecified hypotension type Qualified Code(s): I95.9 - Hypotension, unspecified Opioid dependence Qualifiers: Substance use status: uncomplicated Qualified Code(s): F11.20 - Opioid dependence, uncomplicated Decubitus ulcer of sacral region Qualifiers: Pressure injury stage: unspecified pressure injury stage Qualified Code(s): L89 .159 - Pressure ulcer of sacral region, unspecified stage Leukocytosis Qualifiers: Leukocytosis type: bandemia Qualified Code(s): D72.825 - Bandemia Condition: Fair Disposition: ADMITTED INPATIENT Admitting Provider: Archie (Hospitalist) Unit Admitted: ICU
--- NOTE | 2018-10-11 15:54 | RADIOLOGY REPORT (SQ) ---
EXAM DESCRIPTION: CHEST SINGLE VIEW COMPLETED DATE/TIME: 10/11/2018 3:32 pm REASON FOR STUDY: Hypoxia COMPARISON: 07/17/2018 EXAM PARAMETERS: NUMBER OF VIEWS: One view. TECHNIQUE: Single frontal radiographic view of the chest acquired. RADIATION DOSE: NA LIMITATIONS: None. FINDINGS: LUNGS AND PLEURA: No opacities, masses or pneumothorax. No pleural effusion. MEDIASTINUM AND HILAR STRUCTURES: No masses. Contour normal. HEART AND VASCULAR STRUCTURES: Heart normal in size. Normal vasculature. BONES: No acute findings. HARDWARE: None in the chest. OTHER: No other significant finding. IMPRESSION: No acute abnormality of the lungs in AP projection. TECHNICAL DOCUMENTATION: JOB ID: [id number] [employer]- All Rights Reserved Reading location - IP/workstation name: [email or web address]
[2018-10-11] MEDS: FENTANYL CITRATE INJ/PF 100 MCG/2 ML AMPUL IV ONE ×2 (16:01→17:00)
--- NOTE | 2018-10-11 16:20 | EKG REPORT ---
SEVERITY:- BORDERLINE ECG - SINUS RHYTHM SHORT OR INTERVAL, ACCELERATED AV CONDUCTION BORDERLINE T ABNORMALITIES, ANT-LAT LEADS : Confirmed by: Cory Samson MD 11-Oct-2018 16:19:41
[2018-10-11 16:44] LABS: VENOUS BLOOD BASE EXCESS -13.9 mmol/L; VENOUS BLOOD HCO3 15.5 mmol/L (20-32); VENOUS BLOOD PCO2 48.4 mmHg (35-63)
[2018-10-11 16:47] LABS: VENOUS BLOOD PH 7.12 (7.30-7.42)
[2018-10-11 16:48] LABS: HEMATOCRIT 37.2 % (36.0-47.0); HEMOGLOBIN 11.7 g/dL (12.0-15.5); MEAN CORPUSCULAR HEMOGLOBIN 26.6 pg (27.0-33.4); MEAN CORPUSCULAR HGB CONC 31.4 g/dL (32.0-36.0); MEAN CORPUSCULAR VOLUME 85 fl (80-97); PLATELET COUNT 300 10^3/uL (150-450); RED BLOOD COUNT 4.38 10^6/uL (3.72-5.28); RED CELL DISTRIBUTION WIDTH 17.5 % (11.5-14.0); WHITE BLOOD COUNT 29.4 10^3/uL (4.0-10.5)
[2018-10-11 17:01] LABS: ALANINE AMINOTRANSFERASE 23 U/L (9-52); ALBUMIN 3.1 g/dL (3.5-5.0); ALKALINE PHOSPHATASE 139 U/L (38-126); ANION GAP 10 (5-19); ASPARTATE AMINO TRANSFERASE 24 U/L (14-36); BILIRUBIN,DIRECT 0.9 mg/dL (0.0-0.4); BILIRUBIN,TOTAL 0.9 mg/dL (0.2-1.3); BLOOD UREA NITROGEN 36 mg/dL (7-20); CALCIUM 8.4 mg/dL (8.4-10.2); CARBON DIOXIDE 14 mmol/L (22-30); CHLORIDE 111 mmol/L (98-107); GLUCOSE 91 mg/dL (75-110); TOTAL PROTEIN 5.7 g/dL (6.3-8.2)
[2018-10-11 17:05] LABS: ABSOLUTE LYMPHOCYTES# (MANUAL) 2.1 10^3/uL (0.5-4.7); ABSOLUTE MONOCYTES # (MANUAL) 0.3 10^3/uL (0.1-1.4); BAND NEUTROPHILS % (MANUAL) 7 % (3-5); BASOPHILS % (MANUAL) 0 % (0-2); EOSINOPHILS % (MANUAL) 0 % (0-6); LYMPHOCYTES % (MANUAL) 7 % (13-45); MONOCYTES % (MANUAL) 1 % (3-13); SEGMENTED NEUTROPHILS % (MAN) 85 % (42-78); TOTAL CELLS COUNTED 100
[2018-10-11 17:06] LABS: PLATELET COMMENT ADEQUATE; TOXIC VACUOLATION PRESENT
[2018-10-11 17:07] LABS: ANISOCYTOSIS 1+; HYPOCHROMASIA SLIGHT; POIKILOCYTOSIS SLIGHT
[2018-10-11 17:49] LABS: APPEARANCE,URINE TURBID; BILIRUBIN,URINE NEGATIVE (NEGATIVE); COLOR,URINE AMBER; GLUCOSE, URINE NEGATIVE (NEGATIVE); KETONES,URINE NEGATIVE (NEGATIVE); LEUKOCYTE ESTERASE,URINE LARGE (NEGATIVE); NITRITE,URINE NEGATIVE (NEGATIVE); PROTEIN,URINE 100 mg/dL (NEGATIVE); URINE SPECIFIC GRAVITY 1.018; UROBILINOGEN,URINE NEGATIVE mg/dL (<2.0)
[2018-10-11 18:12] LABS: URINE AMPHETAMINES SCREEN NEGATIVE; URINE BARBITURATES SCREEN NEGATIVE; URINE BENZODIAZEPINES SCREEN NEGATIVE; URINE COCAINE SCREEN NEGATIVE; URINE MARIJUANA (THC) SCREEN NEGATIVE; URINE METHADONE SCREEN NEGATIVE; URINE PHENCYCLIDINE SCREEN NEGATIVE
--- NOTE | 2018-10-11 18:29 | RADIOLOGY REPORT (SQ) ---
EXAM DESCRIPTION: CT ABD/PELVIS NO ORAL OR IV COMPLETED DATE/TIME: 10/11/2018 6:14 pm REASON FOR STUDY: Right lower quadrant abdominal pain COMPARISON: 10/03/2018. TECHNIQUE: CT scan of the abdomen and pelvis performed without intravenous or oral contrast. Images reviewed with lung, soft tissue, and bone windows. Reconstructed coronal and sagittal MPR images revi ewed. All images stored on PACS. All CT scanners at this facility use dose modulation, iterative reconstruction, and/or weight based d osing when appropriate to reduce radiation dose to as low as reasonably achievable (ALARA). [facility]: Dose Right [facility]: CareDose [facility]: Dose Right [facility]: Teradose 4D [facility]: [employer] RADIATION DOSE: CT Rad equipment meets quality standard of care and radiation dose reduction techniq ues were employed. CTDIvol: 8.7 mGy. DLP: 485 mGy-cm.mGy. LIMITATIONS: None. FINDINGS: LOWER CHEST: Scarring in the lung bases. No nodules or infiltrates. NON-CONTRASTED LIVER, SPLEEN, ADRENALS: Evaluation limited by lack of IV contrast. Left adrenal mass unchanged No other identified significant masses. PANCREAS: No masses. No peripancreatic inflammatory changes. GALLBLADDER: Surgically absent. RIGHT KIDNEY AND URETER: No suspicious masses. Assessment limited by lack of IV contrast. No signif icant calcifications. No hydronephrosis or hydroureter. LEFT KIDNEY AND URETER: Chronic atrophy. No suspicious masses. Assessment limited by lack of IV cont rast. No significant calcifications. No hydronephrosis or hydroureter. AORTA AND RETROPERITONEUM: Endograft in the abdominal aorta extending to the common iliac arteries. Bilateral renal artery stents. No retroperitoneal masses or adenopathy. BOWEL AND PERITONEAL CAVITY: No obvious masses or inflammatory changes. No free fluid. APPENDIX: Normal. PELVIS, BLADDER, AND ABDOMINAL WALL:No abnormal masses. No free fluid. Bladder normal. BONES: No significant findings. OTHER: No other significant finding. IMPRESSION: STABLE CHRONIC FINDINGS. AORTOILIAC ENDOGRAFT AND BILATERAL RENAL STENTS, LEFT ADRENAL MASS, CHRONIC ATROPHY OF THE LEFT KIDNEY. ALL UNCHANGED. NO ACUTE PROCESS IN THE ABDOMEN OR PELVIS. COMMENT: Quality ID # [id number]: Final reports with documentation of one or more dose reduction techniques (e.g., Automated exposure control, adjustment of the mA and/or kV according to patient size, use of iterative reconstruction technique) TECHNICAL DOCUMENTATION: JOB ID: [id number] [employer]- All Rights Reserved Reading location - IP/workstation name: [email or web address]
[2018-10-11 18:31] LABS: INTERNATIONAL RATION (INR) 1.11; PROTHROMBIN TIME 14.3 SEC (11.4-15.4)
[2018-10-11] MEDS ORDERED: FENTANYL CITRATE INJ/PF 100 MCG/2 ML AMPUL IV ONE (18:36)
[2018-10-11] MEDS ORDERED: CEFTRIAXONE 1 GM/D5W RTU 1 GM/50 ML RTUPB IV ONE (18:39)
[2018-10-11] MEDS ORDERED: RINGERS SOLUTION,LACTATED 1,000 ML IV ONE (19:57)
[2018-10-11] MEDS ORDERED: MAG HYDROX/AL HYDROX/SIMETH SUSP 30 ML UDCUP PO PRN (20:03)
[2018-10-11] MEDS ORDERED: ACETAMINOPHEN 650 MG SUPP.RECT PR PRN (20:03)
[2018-10-11] MEDS ORDERED: MAGNESIUM HYDROXIDE SUSP 30 ML UDCUP PO PRN (20:03)
[2018-10-11] MEDS ORDERED: IPRATROPIUM/ALBUTEROL 0.5-2.5 MG/3 ML AMPUL NEB PRN (20:03)
[2018-10-11] MEDS ORDERED: ACETAMINOPHEN 325 MG TABLET PO PRN (20:03)
[2018-10-11] MEDS ORDERED: NORMAL SALINE 1000 ML 1,000 ML IV SCH (20:15)
[2018-10-11] MEDS ORDERED: IMIPENEM/CILASTATIN SODIUM 1,000 MG in NORMAL SALINE 250 ML IV SCH (20:30)
[2018-10-11] MEDS: IMIPENEM/CILASTATIN SODIUM 500 MG in NORMAL SALINE 100 ML IV SCH (21:30)
[2018-10-11] MEDS: NORMAL SALINE 1000 ML 1,000 ML IV PRN (21:34)
[2018-10-11] MEDS: HEPARIN SOD (PORCINE) 5,000 UNIT/ML 1 ML VIAL SUBCUT SCH (22:53)
[2018-10-11] MEDS: DEXTROSE 5%-WATER 250 ML with NOREPINEPHRINE BITARTRATE 4 MG IV PRN ×2 (22:55)
[2018-10-11] MEDS: OLANZAPINE 5 MG TABLET PO SCH (23:03)
[2018-10-12] MEDS: NORMAL SALINE 1000 ML 1,000 ML IV PRN ×3 (01:12→03:35)
--- NOTE | 2018-10-12 03:10 | RADIOLOGY REPORT (SQ) ---
Chest single view on 10/12/2018 at 2:25 AM CLINICAL INDICATION: Wheezing COMPARISON: 10/11/2018 FINDINGS: There is mild bibasilar atelectasis. Heart is borderline in size. Vascular calcification is noted in the aorta. Lungs are otherwise clear. Pulmonary vascularity is within normal limits. IMPRESSION: Mild bibasilar atelectasis with otherwise no acute disease.
[2018-10-12] MEDS ORDERED: CIPROFLOXACIN 400 MG/D5W RTU 400 MG/200 ML RTUPB IV ONE (05:00)
[2018-10-12] MEDS ORDERED: NOREPINEPHRINE BITARTRATE INJ/PF 4 MG/4 ML SDV IV ONE (05:01)
[2018-10-12] MEDS: DEXTROSE 5%-WATER 250 ML with NOREPINEPHRINE BITARTRATE 4 MG IV PRN ×8 (05:28→22:30)
[2018-10-12 05:46] LABS: ARTERIAL BLOOD BASE EXCESS -16.9 mmol/L; ARTERIAL BLOOD H2CO3 1.08 mmol/L (1.05-1.35); ARTERIAL BLOOD HCO3 11.5 mmol/L (20-24); ARTERIAL BLOOD O2 SATURATION 92.7 % (94-98); ARTERIAL BLOOD PO2 83.7 mmHg (80-100); ARTERIAL BLOOD TOTAL CO2 12.6 mmol/L (21-25)
[2018-10-12 05:48] LABS: HEMATOCRIT 34.1 % (36.0-47.0); HEMOGLOBIN 10.7 g/dL (12.0-15.5); MEAN CORPUSCULAR HEMOGLOBIN 26.9 pg (27.0-33.4); MEAN CORPUSCULAR HGB CONC 31.2 g/dL (32.0-36.0); MEAN CORPUSCULAR VOLUME 86 fl (80-97); PLATELET COUNT 213 10^3/uL (150-450); RED BLOOD COUNT 3.96 10^6/uL (3.72-5.28); RED CELL DISTRIBUTION WIDTH 17.6 % (11.5-14.0)
[2018-10-12 05:58] LABS: ARTERIAL BLOOD FIO2 2L; ARTERIAL BLOOD PH 7.12 (7.35-7.45)
[2018-10-12] MEDS ORDERED: SODIUM BICARBONATE 8.4% INJ 50 MEQ/50 ML DISP.SYRIN IV ONE (06:06)
[2018-10-12 06:08] LABS: ABSOLUTE LYMPHOCYTES# (MANUAL) 2.4 10^3/uL (0.5-4.7); ABSOLUTE MONOCYTES # (MANUAL) 1.5 10^3/uL (0.1-1.4); BAND NEUTROPHILS % (MANUAL) 12 % (3-5); BASOPHILS % (MANUAL) 0 % (0-2); EOSINOPHILS % (MANUAL) 0 % (0-6); LYMPHOCYTES % (MANUAL) 8 % (13-45); MONOCYTES % (MANUAL) 5 % (3-13); SEGMENTED NEUTROPHILS % (MAN) 75 % (42-78); TOTAL CELLS COUNTED 100
[2018-10-12 06:09] LABS: ANISOCYTOSIS 1+
[2018-10-12 06:11] LABS: PLATELET COMMENT ADEQUATE
[2018-10-12 06:20] LABS: ANION GAP 9 (5-19); BLOOD UREA NITROGEN 35 mg/dL (7-20); CALCIUM 7.7 mg/dL (8.4-10.2); CARBON DIOXIDE 14 mmol/L (22-30); CHLORIDE 117 mmol/L (98-107); GLUCOSE 87 mg/dL (75-110)
[2018-10-12] MEDS: HEPARIN SOD (PORCINE) 5,000 UNIT/ML 1 ML VIAL SUBCUT SCH ×3 (06:21→22:03)
[2018-10-12] MEDS ORDERED: NORMAL SALINE 1000 ML 1,000 ML IV ONE (08:19)
[2018-10-12] MEDS ORDERED: PHENYLEPHRINE HCL INJ/PF 10 MG/1 ML SDV ONE ×2 (08:33)
--- NOTE | 2018-10-12 08:56 | PDOC H&P ---
History of Present Illness Admission Date/PCP: 10/11/18 20:21 LETA PRIEST DO Patient complains of: Fever and weakness History of Present Illness: KAREN MALDONADO is a 58 year old female with a partial past medical history of stage III chronic kidney disease, CVA with residual leg weakness, stage IV sacral decubiti, chronic pain, polypharmacy, obstructive sleep apnea, COPD with chronic bronchitis and persistent tobacco dependence. She presents with 10 days of abdominal discomfort nausea and diarrhea prompting evaluation in the emergency room where she is found to have severe sepsis, metabolic acidosis, hypotension, leukocytosis, pyuria and acute on chronic renal failure. CT abdomen pelvis is negative for pyelonephritis, abscess or hydronephrosis. She receives empiric antibiotics and referred to the hospitalist for admission. Evaluation of urine culture 3 months ago reveals Klebsiella pneumonia sensitive to Cipro and imipenem. Upon evaluation the patient she is persistently hypotensive requiring central line placement, 3 L normal saline bolus and Levophed. And 30 minutes of critical care time Past Medical History Cardiac Medical History: Reports: Hyperlipidema, Hypertension Pulmonary Medical History: Reports: Bronchitis, Chronic Obstructive Pulmonary Disease (COPD), Pneumonia Musculoskeltal Medical History: Reports: Arthritis Psychiatric Medical History: Reports: Depression, General Anxiety Disorder, Tobacco Dependency Past Surgical History Past Surgical History: Reports: Cholecystectomy, Hysterectomy, Tubal Ligation Social History Information Source: Patient Lives with: Family Smoking Status: Current Every Day Smoker Frequency of Alcohol Use: None Hx Recreational Drug Use: Yes Drugs: Marijuana Hx Prescription Drug Abuse: Yes - Advance Directive Resuscitation Status: Full Code Family History Family History: COPD, Hypertension Parental Family History Reviewed: Yes Children Family History Reviewed: Yes Sibling(s) Family History Reviewed.: Yes Medication/Allergy Home Medications: Oxycodone HCl/Acetaminophen [Endocet 10-325 mg Tablet] 1 tab PO Q8HP PRN 07/16/18 Allergies/Adverse Reactions: No Known Allergies Allergy (Verified 05/15/18 10:38) Review of Systems Constitutional: PRESENT: chills, fatigue, fever(s), weakness, weight loss Eyes: ABSENT: visual disturbances Ears: ABSENT: hearing changes Cardiovascular: ABSENT: chest pain, dyspnea on exertion, edema, orthropnea, palpitations Respiratory: PRESENT: as per HPI, cough, dyspnea. ABSENT: sputum Gastrointestinal: PRESENT: abdominal pain, diarrhea, nausea. ABSENT: constipation, hematemesis, hematochezia, vomiting Genitourinary: PRESENT: as per HPI, difficulty urinating, dysuria. ABSENT: hematuria Musculoskeletal: ABSENT: joint swelling Integumentary: ABSENT: rash, wounds Neurological: ABSENT: abnormal gait, abnormal speech, confusion, dizziness, focal weakness, syncope Physical Exam Vital Signs: Temp Pulse Resp BP Pulse Ox 97.8 F 85 10 L 94/56 L 100 10/11/18 19:00 10/11/18 14:27 10/12/18 04:00 10/12/18 04:00 10/12/18 04:00 Intake & Output 10/10/18 10/11/18 10/12/18 11:59 11:59 11:59 Intake Total 6081 Balance 6081 Weight 73 kg General appearance: PRESENT: severe distress Head exam: PRESENT: atraumatic, normocephalic Eye exam: PRESENT: conjunctiva pink, EOMI, PERRLA. ABSENT: scleral icterus Ear exam: PRESENT: normal external ear exam Mouth exam: PRESENT: dry mucosa, tongue midline. ABSENT: laceration, moist Neck exam: ABSENT: carotid bruit, JVD, lymphadenopathy, thyromegaly Respiratory exam: PRESENT: accessory muscle use, crackles, prolonged expiratory phas, retraction Cardiovascular exam: PRESENT: tachycardia. ABSENT: diastolic murmur, rubs, systolic murmur Pulses: PRESENT: normal dorsalis pedis pul Vascular exam: PRESENT: normal capillary refill GI/Abdominal exam: PRESENT: normal bowel sounds, soft, tenderness - Suprapubic. ABSENT: distended, guarding, mass, organolmegaly, rebound Rectal exam: PRESENT: deferred Extremities exam: PRESENT: full ROM. ABSENT: calf tenderness, clubbing, pedal edema Neurological exam: PRESENT: alert, awake, oriented to person, oriented to place, oriented to time, oriented to situation, CN II-XII grossly intact. ABSENT: motor sensory deficit Psychiatric exam: PRESENT: anxious, normal mood, unusual affect. ABSENT: homicidal ideation, suicidal ideation Skin exam: PRESENT: dry, erythema - 4 x 4 centimeter stage I sacral decub, intact, warm. ABSENT: cyanosis, rash Results Laboratory Results: 10/11/18 16:08 10/11/18 16:08 10/11/18 10/11/18 10/11/18 16:08 16:08 16:08 WBC 29.4 H RBC 4.38 Hgb 11.7 L Hct 37.2 MCV 85 MCH 26.6 L MCHC 31.4 L RDW 17.5 H Plt Count 300 Seg Neutrophils % Not Reportable Lymphocytes % Not Reportable Monocytes % Not Reportable Eosinophils % Not Reportable Basophils % Not Reportable Absolute Neutrophils Not Reportable Absolute Lymphocytes Not Reportable Absolute Monocytes Not Reportable Absolute Eosinophils Not Reportable Absolute Basophils Not Reportable VBG pH 7.12 L* VBG pCO2 48.4 VBG HCO3 15.5 L VBG Base Excess -13.9 Sodium 135.0 L Potassium 4.0 Chloride 111 H Carbon Dioxide 14 L Anion Gap 10 BUN 36 H Creatinine 2.46 H Est GFR ( Amer) 24 L Est GFR (Non-Af Amer) 20 L Glucose 91 Lactic Acid Calcium 8.4 Magnesium Total Bilirubin 0.9 AST 24 ALT 23 Alkaline Phosphatase 139 H Total Protein 5.7 L Albumin 3.1 L Urine Color Urine Appearance Urine pH Ur Specific [place] Urine Protein Urine Glucose (UA) Urine Ketones Urine Blood Urine Nitrite Ur Leukocyte Esterase Urine WBC (Auto) Urine RBC (Auto) 10/11/18 10/11/18 10/11/18 16:08 16:19 17:21 WBC RBC Hgb Hct MCV MCH MCHC RDW Plt Count Seg Neutrophils % Lymphocytes % Monocytes % Eosinophils % Basophils % Absolute Neutrophils Absolute Lymphocytes Absolute Monocytes Absolute Eosinophils Absolute Basophils VBG pH VBG pCO2 VBG HCO3 VBG Base Excess Sodium Potassium Chloride Carbon Dioxide Anion Gap BUN Creatinine Est GFR ( Amer) Est GFR (Non-Af Amer) Glucose Lactic Acid 2.1 Calcium Magnesium 1.4 L Total Bilirubin AST ALT Alkaline Phosphatase Total Protein Albumin Urine Color JACQUES Urine Appearance TURBID Urine pH 5.0 Ur Specific [place] 1.018 Urine Protein 100 H Urine Glucose (UA) NEGATIVE Urine Ketones NEGATIVE Urine Blood SMALL H Urine Nitrite NEGATIVE Ur Leukocyte Esterase LARGE H Urine WBC (Auto) >182 Urine RBC (Auto) 14 10/11/18 21:39 WBC RBC Hgb Hct MCV MCH MCHC RDW Plt Count Seg Neutrophils % Lymphocytes % Monocytes % Eosinophils % Basophils % Absolute Neutrophils Absolute Lymphocytes Absolute Monocytes Absolute Eosinophils Absolute Basophils VBG pH VBG pCO2 VBG HCO3 VBG Base Excess Sodium Potassium Chloride Carbon Dioxide Anion Gap BUN Creatinine Est GFR ( Amer) Est GFR (Non-Af Amer) Glucose Lactic Acid 1.2 Calcium Magnesium Total Bilirubin AST ALT Alkaline Phosphatase Total Protein Albumin Urine Color Urine Appearance Urine pH Ur Specific [place] Urine Protein Urine Glucose (UA) Urine Ketones Urine Blood Urine Nitrite Ur Leukocyte Esterase Urine WBC (Auto) Urine RBC (Auto) 10/11/18 17:40 Troponin I < 0.012 Impressions: Abdomen/Pelvis CT 10/11/18 15:18 IMPRESSION: STABLE CHRONIC FINDINGS. AORTOILIAC ENDOGRAFT AND BILATERAL RENAL STENTS, LEFT ADRENAL MASS, CHRONIC ATROPHY OF THE LEFT KIDNEY. ALL UNCHANGED. NO ACUTE PROCESS IN THE ABDOMEN OR PELVIS. Chest X-Ray 10/12/18 00:00 IMPRESSION: Mild bibasilar atelectasis with otherwise no acute disease. Assessment and Plan - Diagnosis (1) UTI due to Klebsiella species Is this a current diagnosis for this admission?: Yes Plan: Recent microbiology revealed Klebsiella sensitive to imipenem and ciprofloxacin. Follow-up blood and urine culture (2) Severe sepsis Is this a current diagnosis for this admission?: Yes Plan: Secondary to #1, IV fluid challenge, Levophed as needed (3) Obstructive sleep apnea Is this a current diagnosis for this admission?: Yes Plan: BiPAP (4) Chronic pain Qualifiers: Chronic pain type: chronic pain syndrome Qualified Code(s): G89.4 - Chronic pain syndrome Is this a current diagnosis for this admission?: Yes Plan: Complicated by opiate dependence. Narcotics limited by hypotension (5) CKD (chronic kidney disease), stage III Is this a current diagnosis for this admission?: Yes Plan: Acute on chronic kidney disease secondary to a #1. IV fluid challenge. Avoid nephrotoxic meds and doses pharmacy dosing of medications ordered. (6) Decubitus ulcer of sacral region Qualifiers: Pressure injury stage: unspecified pressure injury stage Qualified Code(s): L89.159 - Pressure ulcer of sacral region, unspecified stage Is this a current diagnosis for this admission?: Yes Plan: Specialty bed
[2018-10-12] MEDS: DEXTROSE 5%-WATER 250 ML with PHENYLEPHRINE HCL 40 MG IV PRN ×4 (08:57→16:39)
[2018-10-12] MEDS: IPRATROPIUM/ALBUTEROL 0.5-2.5 MG/3 ML AMPUL NEB SCH ×2 (09:00→20:07)
[2018-10-12] MEDS: IMIPENEM/CILASTATIN SODIUM 500 MG in NORMAL SALINE 100 ML IV SCH ×2 (11:12→22:04)
[2018-10-12 12:12] LABS: PATH REVIEW PATHOLOGIST REVIEWED
[2018-10-12] MEDS ORDERED: DEXTROSE 5%-WATER 1000 ML 1,000 ML with SODIUM BICARBONATE 150 MEQ IV PRN ×4 (14:03→18:18)
[2018-10-12 14:54] LABS: ARTERIAL BLOOD BASE EXCESS -14.5 mmol/L; ARTERIAL BLOOD H2CO3 1.06 mmol/L (1.05-1.35); ARTERIAL BLOOD HCO3 12.8 mmol/L (20-24); ARTERIAL BLOOD O2 SATURATION 95.6 % (94-98); ARTERIAL BLOOD PCO2 35.1 mmHg (35-45); ARTERIAL BLOOD PO2 95.3 mmHg (80-100); ARTERIAL BLOOD TOTAL CO2 13.9 mmol/L (21-25)
[2018-10-12 14:57] LABS: ARTERIAL BLOOD FIO2 2L
[2018-10-12 14:58] LABS: ARTERIAL BLOOD PH 7.18 (7.35-7.45)
[2018-10-12] MEDS ORDERED: OXYCODONE-ACETAMINOPHEN 5-325 MG TABLET PO PRN (18:16)
[2018-10-12] MEDS: OXYCODONE-ACETAMINOPHEN 5-325 MG TABLET PO PRN (19:54)
--- NOTE | 2018-10-12 20:35 | PDOC PROGRESS REPORT ---
Subjective Progress Note for:: 10/12/18 Subjective:: The patient is seen in the emergency department prior to transfer to the intensive care unit. Reason For Visit: UTI, SEPSIS, ARF Physical Exam Vital Signs: Temp Pulse Resp BP Pulse Ox 97.8 F 96 13 91/47 L 99 10/11/18 19:00 10/12/18 09:02 10/12/18 10:25 10/12/18 10:25 10/12/18 10:25 Intake & Output 10/11/18 10/12/18 10/13/18 06:59 06:59 06:59 Intake Total 7300 493 Output Total 450 Balance 7300 43 Weight 73 kg General appearance: PRESENT: cooperative, mild distress, well-developed Head exam: PRESENT: atraumatic, normocephalic Ear exam: PRESENT: normal external ear exam Mouth exam: PRESENT: dry mucosa, tongue midline Respiratory exam: PRESENT: clear to auscultation abraham, symmetrical, unlabored. ABSENT: rales, rhonchi, tachypnea, wheezes Cardiovascular exam: PRESENT: RRR, +S1, +S2 GI/Abdominal exam: PRESENT: hypoactive bowel sounds, soft, tenderness - Especially in the suprapubic area. ABSENT: distended Rectal exam: PRESENT: deferred Extremities exam: ABSENT: pedal edema Musculoskeletal exam: PRESENT: normal inspection. ABSENT: deformity Neurological exam: PRESENT: alert, awake, oriented to person, oriented to place, oriented to time, oriented to situation, CN II-XII grossly intact Psychiatric exam: PRESENT: anxious - Concerned about her clinical condition. ABSENT: agitated Focused psych exam: ABSENT: delusional, restlessness Results Laboratory Results: 10/12/18 05:26 10/12/18 05:26 10/11/18 10/11/18 10/11/18 16:08 16:08 16:08 WBC 29.4 H RBC 4.38 Hgb 11.7 L Hct 37.2 MCV 85 MCH 26.6 L MCHC 31.4 L RDW 17.5 H Plt Count 300 Seg Neutrophils % Not Reportable Lymphocytes % Not Reportable Monocytes % Not Reportable Eosinophils % Not Reportable Basophils % Not Reportable Absolute Neutrophils Not Reportable Absolute Lymphocytes Not Reportable Absolute Monocytes Not Reportable Absolute Eosinophils Not Reportable Absolute Basophils Not Reportable Carbonic Acid HCO3/H2CO3 Ratio ABG pH ABG pCO2 ABG pO2 ABG HCO3 ABG O2 Saturation ABG Base Excess VBG pH 7.12 L* VBG pCO2 48.4 VBG HCO3 15.5 L VBG Base Excess -13.9 FiO2 Sodium 135.0 L Potassium 4.0 Chloride 111 H Carbon Dioxide 14 L Anion Gap 10 BUN 36 H Creatinine 2.46 H Est GFR ( Amer) 24 L Est GFR (Non-Af Amer) 20 L Glucose 91 Lactic Acid Calcium 8.4 Magnesium Total Bilirubin 0.9 AST 24 ALT 23 Alkaline Phosphatase 139 H Total Protein 5.7 L Albumin 3.1 L Urine Color Urine Appearance Urine pH Ur Specific [place] Urine Protein Urine Glucose (UA) Urine Ketones Urine Blood Urine Nitrite Ur Leukocyte Esterase Urine WBC (Auto) Urine RBC (Auto) 10/11/18 10/11/18 10/11/18 16:08 16:19 17:21 WBC RBC Hgb Hct MCV MCH MCHC RDW Plt Count Seg Neutrophils % Lymphocytes % Monocytes % Eosinophils % Basophils % Absolute Neutrophils Absolute Lymphocytes Absolute Monocytes Absolute Eosinophils Absolute Basophils Carbonic Acid HCO3/H2CO3 Ratio ABG pH ABG pCO2 ABG pO2 ABG HCO3 ABG O2 Saturation ABG Base Excess VBG pH VBG pCO2 VBG HCO3 VBG Base Excess FiO2 Sodium Potassium Chloride Carbon Dioxide Anion Gap BUN Creatinine Est GFR ( Amer) Est GFR (Non-Af Amer) Glucose Lactic Acid 2.1 Calcium Magnesium 1.4 L Total Bilirubin AST ALT Alkaline Phosphatase Total Protein Albumin Urine Color JACQUES Urine Appearance TURBID Urine pH 5.0 Ur Specific [place] 1.018 Urine Protein 100 H Urine Glucose (UA) NEGATIVE Urine Ketones NEGATIVE Urine Blood SMALL H Urine Nitrite NEGATIVE Ur Leukocyte Esterase LARGE H Urine WBC (Auto) >182 Urine RBC (Auto) 14 10/11/18 10/12/18 10/12/18 21:39 05:06 05:26 WBC 30.0 H* RBC 3.96 Hgb 10.7 L Hct 34.1 L MCV 86 MCH 26.9 L MCHC 31.2 L RDW 17.6 H Plt Count 213 Seg Neutrophils % Not Reportable Lymphocytes % Not Reportable Monocytes % Not Reportable Eosinophils % Not Reportable Basophils % Not Reportable Absolute Neutrophils Not Reportable Absolute Lymphocytes Not Reportable Absolute Monocytes Not Reportable Absolute Eosinophils Not Reportable Absolute Basophils Not Reportable Carbonic Acid 1.08 HCO3/H2CO3 Ratio 10:1 ABG pH 7.12 L* ABG pCO2 36.0 ABG pO2 83.7 ABG HCO3 11.5 L ABG O2 Saturation 92.7 L ABG Base Excess -16.9 VBG pH VBG pCO2 VBG HCO3 VBG Base Excess FiO2 2L Sodium Potassium Chloride Carbon Dioxide Anion Gap BUN Creatinine Est GFR ( Amer) Est GFR (Non-Af Amer) Glucose Lactic Acid 1.2 Calcium Magnesium Total Bilirubin AST ALT Alkaline Phosphatase Total Protein Albumin Urine Color Urine Appearance Urine pH Ur Specific [place] Urine Protein Urine Glucose (UA) Urine Ketones Urine Blood Urine Nitrite Ur Leukocyte Esterase Urine WBC (Auto) Urine RBC (Auto) 10/12/18 10/12/18 05:26 05:26 WBC RBC Hgb Hct MCV MCH MCHC RDW Plt Count Seg Neutrophils % Lymphocytes % Monocytes % Eosinophils % Basophils % Absolute Neutrophils Absolute Lymphocytes Absolute Monocytes Absolute Eosinophils Absolute Basophils Carbonic Acid HCO3/H2CO3 Ratio ABG pH ABG pCO2 ABG pO2 ABG HCO3 ABG O2 Saturation ABG Base Excess VBG pH VBG pCO2 VBG HCO3 VBG Base Excess FiO2 Sodium 139.5 Potassium 4.0 Chloride 117 H Carbon Dioxide 14 L Anion Gap 9 BUN 35 H Creatinine 2.03 H Est GFR ( Amer) 30 L Est GFR (Non-Af Amer) 25 L Glucose 87 Lactic Acid 1.9 Calcium 7.7 L Magnesium Total Bilirubin AST ALT Alkaline Phosphatase Total Protein Albumin Urine Color Urine Appearance Urine pH Ur Specific [place] Urine Protein Urine Glucose (UA) Urine Ketones Urine Blood Urine Nitrite Ur Leukocyte Esterase Urine WBC (Auto) Urine RBC (Auto) 10/11/18 17:40 Troponin I < 0.012 Impressions: Abdomen/Pelvis CT 10/11/18 15:18 IMPRESSION: STABLE CHRONIC FINDINGS. AORTOILIAC ENDOGRAFT AND BILATERAL RENAL STENTS, LEFT ADRENAL MASS, CHRONIC ATROPHY OF THE LEFT KIDNEY. ALL UNCHANGED. NO ACUTE PROCESS IN THE ABDOMEN OR PELVIS. Chest X-Ray 10/12/18 00:00 IMPRESSION: Mild bibasilar atelectasis with otherwise no acute disease. Assessment and Plan - Diagnosis (1) Sepsis Qualifiers: Sepsis type: sepsis due to unspecified organism Qualified Code(s): A41.9 - Sepsis, unspecified organism Is this a current diagnosis for this admission?: Yes Plan: 10/12/2018-the patient is still acidotic. She now requires 2 vasopressor medications in addition to IV fluids. I have discussed the benefits of having a central line in the patient is in favor of this. The urine culture has a preliminary growth of gram-negative bacilli. She has had Klebsiella in the past. She is on broad spectrum antibiotics and should cover any gram-negative bacillus identified. We will continue fluids and correct acidosis and try and wean from vasopressors. (2) UTI (urinary tract infection) Qualifiers: Urinary tract infection type: site unspecified Hematuria presence: with hematuria Qualified Code(s): N39.0 - Urinary tract infection, site not specified; R31.9 - Hematuria, unspecified Is this a current diagnosis for this admission?: Yes Plan: 10/12/2018-preliminary growth is gram-negative bacilli. Continue current antibiotics. Narrow the spectrum of antibiotic when further identification and sensitivities available. (3) Obstructive sleep apnea Is this a current diagnosis for this admission?: Yes Plan: 10/12/2018-we will utilize BiPAP at night. Oxygen during the day to keep saturations above 90% (4) Chronic pain Is this a current diagnosis for this admission?: Yes Plan: 10/12/2018-we will continue her home medication regimen (5) CKD (chronic kidney disease), stage III Is this a current diagnosis for this admission?: Yes Plan: The patient exhibits acute on chronic kidney disease. This is likely from hypoperfusion due to the sepsis. This is most likely acute tubular necrosis. We will try and improve perfusion and correct pressures. This should allow her renal function to return to baseline. (6) Metabolic acidosis Is this a current diagnosis for this admission?: Yes Plan: 10/12/2018-the patient had severe acidosis with a pH of 7.13. She was given a bolus of bicarbonate in the emergency department. I have initiated an infusion of bicarbonate with 150 mEq and a liter of D5W at a rate of 100 mL/h. This will be adjusted based on review of her laboratory studies and arterial blood gases. Her lactic acid was never out of the normal range. We will continue to monitor her closely including her acid-base balance, intake and outputs and laboratory studies - Time Time Spent with patient: 25-34 minutes Total Critical Time (Minutes): 35 Medications reviewed and adjusted accordingly: Yes
[2018-10-12 20:44] LABS: HEMATOCRIT 36.3 % (36.0-47.0); HEMOGLOBIN 11.4 g/dL (12.0-15.5); MEAN CORPUSCULAR HEMOGLOBIN 26.6 pg (27.0-33.4); MEAN CORPUSCULAR HGB CONC 31.5 g/dL (32.0-36.0); MEAN CORPUSCULAR VOLUME 85 fl (80-97); PLATELET COUNT 246 10^3/uL (150-450); RED BLOOD COUNT 4.29 10^6/uL (3.72-5.28); RED CELL DISTRIBUTION WIDTH 17.8 % (11.5-14.0)
[2018-10-12 20:56] LABS: ANION GAP 10 (5-19); BLOOD UREA NITROGEN 32 mg/dL (7-20); CALCIUM 7.7 mg/dL (8.4-10.2); CARBON DIOXIDE 14 mmol/L (22-30); CHLORIDE 112 mmol/L (98-107); GLUCOSE 130 mg/dL (75-110); POTASSIUM 3.6 mmol/L (3.6-5.0)
[2018-10-12 21:12] LABS: ABSOLUTE LYMPHOCYTES# (MANUAL) 3.9 10^3/uL (0.5-4.7); ABSOLUTE MONOCYTES # (MANUAL) 1.3 10^3/uL (0.1-1.4); BAND NEUTROPHILS % (MANUAL) 6 % (3-5); BASOPHILS % (MANUAL) 0 % (0-2); EOSINOPHILS % (MANUAL) 0 % (0-6); LYMPHOCYTES % (MANUAL) 12 % (13-45); MONOCYTES % (MANUAL) 4 % (3-13); SEGMENTED NEUTROPHILS % (MAN) 78 % (42-78); TOTAL CELLS COUNTED 100
[2018-10-12 21:13] LABS: PLATELET COMMENT ADEQUATE
[2018-10-12 21:14] LABS: ANISOCYTOSIS SLIGHT; POIKILOCYTOSIS SLIGHT
[2018-10-12 21:21] LABS: WHITE BLOOD COUNT 32.9 10^3/uL (4.0-10.5)
[2018-10-12] MEDS ORDERED: NORMAL SALINE INJ/PF 0.9% 10 ML SDV IV PRN (21:30)
--- NOTE | 2018-10-12 21:55 | RADIOLOGY REPORT (SQ) ---
XR CHEST 1 VIEW EXAM DATE: 10/12/2018 12:00 AM CDT HISTORY: TLC placement. COMPARISON: 10/12/2018 FINDINGS: The heart size is within normal limits. No consolidation, pleural effusion, or pneumothorax is seen. The bony thorax is intact. There is a left central venous line with the tip near the cavoatrial junction. IMPRESSION: Left central venous line with the tip near the cavoatrial junction. No pneumothorax.
[2018-10-12] MEDS: OLANZAPINE 5 MG TABLET PO SCH (22:04)
[2018-10-12] MEDS: HYDROCORTISONE SOD SUCCINATE INJ/PF 100 MG/2 ML SDV IV SCH (22:04)
--- NOTE | 2018-10-12 23:10 | OPERATIVE REPORT E ---
Operative Report NAME: KAREN MALDONADO : 1960 AGE: 58Y DATE OF SURGERY: 10/12/2018 ROOM: 609 PREOPERATIVE DIAGNOSIS: POOR VEINS FOR IV ACCESS AND NEEDED A CENTRAL LINE FOR PRESSORS. POSTOPERATIVE DIAGNOSIS: POOR VEINS FOR IV ACCESS AND NEEDED A CENTRAL LINE FOR PRESSORS. PROCEDURE: Placement of left internal jugular vein triple-lumen catheter under ultrasound guidance. SURGEON: ALIYA SMART M.D. ANESTHESIA: Local. DESCRIPTION OF PROCEDURE: The patient was placed in slight Trendelenburg position and the left neck prepped and draped in the usual sterile fashion. With the use of the ultrasound the internal jugular vein was then identified and local anesthesia infiltrated on the skin. The internal jugular vein was then punctured percutaneously and blood noted to be nonpulsatile and dark. A guidewire was then placed through the needle towards the area of the superior vena cava and the needle pulled out. The insertion site was then dilated and a triple-lumen catheter inserted through the guidewire to a distance of about 18 cm. The catheter was then anchored to the skin with 3-0 silk and all the 3 ports aspirated blood easily and instilled saline easily. Biopatch placed at the insertion site and a transparent dressing placed over the Biopatch and catheter. A chest x-ray will be obtained for placement. The patient tolerated the procedure well. DICTATING PHYSICIAN: ALIYA SMART M.D. [id number] PHY#: [id number] ID: [id number] JOB#: [id number] ACCT: [id number] cc:ALIYA SMART M.D. >
[2018-10-13] MEDS: DEXTROSE 5%-WATER 250 ML with PHENYLEPHRINE HCL 40 MG IV PRN ×2 (01:45)
[2018-10-13] MEDS: MAGNESIUM SULFATE 1 GM/D5W 100 ML IV SCH ×2 (03:50→04:53)
[2018-10-13] MEDS: DEXTROSE 5%-WATER 250 ML with NOREPINEPHRINE BITARTRATE 4 MG IV PRN ×4 (04:25→18:23)
[2018-10-13 04:42] LABS: HEMATOCRIT 29.9 % (36.0-47.0); HEMOGLOBIN 9.6 g/dL (12.0-15.5); MEAN CORPUSCULAR VOLUME 84 fl (80-97); PLATELET COUNT 217 10^3/uL (150-450); RED BLOOD COUNT 3.55 10^6/uL (3.72-5.28); RED CELL DISTRIBUTION WIDTH 18.1 % (11.5-14.0); WHITE BLOOD COUNT 25.9 10^3/uL (4.0-10.5)
[2018-10-13 04:53] LABS: ANION GAP 7 (5-19); BLOOD UREA NITROGEN 29 mg/dL (7-20); CALCIUM 7.4 mg/dL (8.4-10.2); CARBON DIOXIDE 18 mmol/L (22-30); CHLORIDE 113 mmol/L (98-107); GLUCOSE 158 mg/dL (75-110); POTASSIUM 3.3 mmol/L (3.6-5.0)
[2018-10-13 04:58] LABS: ARTERIAL BLOOD BASE EXCESS -9.1 mmol/L; ARTERIAL BLOOD FIO2 ROOM AIR; ARTERIAL BLOOD H2CO3 1.02 mmol/L (1.05-1.35); ARTERIAL BLOOD HCO3 16.4 mmol/L (20-24); ARTERIAL BLOOD O2 SATURATION 95.4 % (94-98); ARTERIAL BLOOD PCO2 33.9 mmHg (35-45); ARTERIAL BLOOD PO2 83.8 mmHg (80-100); ARTERIAL BLOOD TOTAL CO2 17.4 mmol/L (21-25)
[2018-10-13] MEDS: HEPARIN SOD (PORCINE) 5,000 UNIT/ML 1 ML VIAL SUBCUT SCH ×3 (05:07→21:48)
[2018-10-13] MEDS: HYDROCORTISONE SOD SUCCINATE INJ/PF 100 MG/2 ML SDV IV SCH ×3 (05:07→21:48)
[2018-10-13 05:32] LABS: ABSOLUTE LYMPHOCYTES# (MANUAL) 2.1 10^3/uL (0.5-4.7); BAND NEUTROPHILS % (MANUAL) 1 % (3-5); BASOPHILS % (MANUAL) 0 % (0-2); EOSINOPHILS % (MANUAL) 0 % (0-6); LYMPHOCYTES % (MANUAL) 8 % (13-45); MONOCYTES % (MANUAL) 4 % (3-13); SEGMENTED NEUTROPHILS % (MAN) 87 % (42-78); TOTAL CELLS COUNTED 100
[2018-10-13 05:33] LABS: ANISOCYTOSIS 1+; BURR CELLS 1+; OVALOCYTES 1+; PLATELET COMMENT ADEQUATE; POIKILOCYTOSIS 1+; SCHISTOCYTES SLIGHT; TOXIC GRANULATION 1+
[2018-10-13] MEDS ORDERED: CIPROFLOXACIN 400 MG/D5W RTU 400 MG/200 ML RTUPB IV SCH (06:00)
[2018-10-13] MEDS ORDERED: POTASSIUM CHLORIDE 10 MEQ CAPSULE.ER PO ONE (06:57)
[2018-10-13] MEDS: OXYCODONE-ACETAMINOPHEN 5-325 MG TABLET PO PRN ×3 (07:53→20:45)
[2018-10-13] MEDS: IPRATROPIUM/ALBUTEROL 0.5-2.5 MG/3 ML AMPUL NEB SCH ×2 (07:54→19:58)
--- NOTE | 2018-10-13 09:01 | RADIOLOGY REPORT (SQ) ---
EXAM DESCRIPTION: CHEST SINGLE VIEW COMPLETED DATE/TIME: 10/13/2018 6:54 am REASON FOR STUDY: septic shock COMPARISON: 10/12/2018. EXAM PARAMETERS: NUMBER OF VIEWS: One view. TECHNIQUE: Single frontal radiographic view of the chest acquired. RADIATION DOSE: NA LIMITATIONS: None. FINDINGS: LUNGS AND PLEURA: Scattered linear densities particularly in the lung bases. No pleural e ffusion. No pneumothorax. MEDIASTINUM AND HILAR STRUCTURES: No masses. Contour normal. HEART AND VASCULAR STRUCTURES: Heart normal in size. Normal vasculature. BONES: No acute findings. HARDWARE: Stable central line. OTHER: No other significant finding. IMPRESSION: STABLE APPEARANCE. NO SIGNIFICANT CHANGE. TECHNICAL DOCUMENTATION: JOB ID: [id number] [employer]- All Rights Reserved Reading location - IP/workstation name: [email or web address]
[2018-10-13] MEDS: MAGNESIUM SULFATE/D5W 1 GM/100 ML RTUPB IV SCH (09:11)
[2018-10-13] MEDS: IMIPENEM/CILASTATIN SODIUM 500 MG in NORMAL SALINE 100 ML IV SCH (09:45)
[2018-10-13] MEDS: CEFAZOLIN SODIUM 2 GM in DEXTROSE 5%-WATER 100 ML IV SCH ×2 (17:47→23:58)
[2018-10-13] MEDS: SODIUM BICARBONATE 650 MG TABLET PO SCH (17:47)
[2018-10-13] MEDS ORDERED: CEFAZOLIN 2 GM/D5W RTU 2 GM/50 ML RTUPB IV SCH (18:00)
--- NOTE | 2018-10-13 19:20 | PDOC PROGRESS REPORT ---
Subjective Progress Note for:: 10/13/18 Subjective:: Patient is resting comfortably. She has no new complaints. Chronic complaint of her hip pain and we are getting her a pillow to prop her hip up. Reason For Visit: UTI, SEPSIS, ARF Physical Exam Vital Signs: Temp Pulse Resp BP Pulse Ox 98.4 F 90 13 106/64 97 10/13/18 16:00 10/13/18 18:00 10/13/18 18:00 10/13/18 18:00 10/13/18 18:00 Intake & Output 10/12/18 10/13/18 10/14/18 06:59 06:59 06:59 Intake Total 7300 4227 1299 Output Total 3185 1075 Balance 7300 1042 224 Weight 73 kg 77.5 kg General appearance: PRESENT: cooperative, mild distress, well-developed Head exam: PRESENT: atraumatic, normocephalic Eye exam: PRESENT: conjunctiva pink. ABSENT: scleral icterus Mouth exam: PRESENT: moist, tongue midline Respiratory exam: PRESENT: clear to auscultation abraham, symmetrical, unlabored. ABSENT: accessory muscle use, rales, rhonchi, tachypnea, wheezes Cardiovascular exam: PRESENT: RRR, +S1, +S2 GI/Abdominal exam: PRESENT: normal bowel sounds, soft. ABSENT: distended, tenderness Rectal exam: PRESENT: deferred Gentrourinary exam: PRESENT: indwelling catheter Extremities exam: ABSENT: pedal edema, tenderness Musculoskeletal exam: PRESENT: normal inspection Neurological exam: PRESENT: alert, awake, oriented to person, oriented to place, oriented to time, oriented to situation, CN II-XII grossly intact Psychiatric exam: PRESENT: appropriate affect, normal mood. ABSENT: agitated, anxious Focused psych exam: ABSENT: delusional Skin exam: PRESENT: dry, warm. ABSENT: rash Results Laboratory Results: 10/13/18 04:21 10/13/18 04:21 10/12/18 10/12/18 10/13/18 20:07 20:07 04:21 WBC 32.9 H* RBC 4.29 Hgb 11.4 L Hct 36.3 MCV 85 MCH 26.6 L MCHC 31.5 L RDW 17.8 H Plt Count 246 Seg Neutrophils % Not Reportable Lymphocytes % Not Reportable Monocytes % Not Reportable Eosinophils % Not Reportable Basophils % Not Reportable Absolute Neutrophils Not Reportable Absolute Lymphocytes Not Reportable Absolute Monocytes Not Reportable Absolute Eosinophils Not Reportable Absolute Basophils Not Reportable Carbonic Acid HCO3/H2CO3 Ratio ABG pH ABG pCO2 ABG pO2 ABG HCO3 ABG O2 Saturation ABG Base Excess FiO2 Sodium 136.4 L 137.6 Potassium 3.6 3.3 L Chloride 112 H 113 H Carbon Dioxide 14 L 18 L Anion Gap 10 7 BUN 32 H 29 H Creatinine 1.44 H 1.31 H Est GFR ( Amer) 45 L 50 L Est GFR (Non-Af Amer) 37 L 41 L Glucose 130 H 158 H Calcium 7.7 L 7.4 L Magnesium 1.3 L 1.3 L 10/13/18 10/13/18 10/13/18 04:21 04:21 07:45 WBC 25.9 H RBC 3.55 L Hgb 9.6 L Hct 29.9 L MCV 84 MCH 27.0 MCHC 32.0 RDW 18.1 H Plt Count 217 Seg Neutrophils % Not Reportable Lymphocytes % Not Reportable Monocytes % Not Reportable Eosinophils % Not Reportable Basophils % Not Reportable Absolute Neutrophils Not Reportable Absolute Lymphocytes Not Reportable Absolute Monocytes Not Reportable Absolute Eosinophils Not Reportable Absolute Basophils Not Reportable Carbonic Acid 1.02 L HCO3/H2CO3 Ratio 16:1 ABG pH 7.30 L ABG pCO2 33.9 L ABG pO2 83.8 ABG HCO3 16.4 L ABG O2 Saturation 95.4 ABG Base Excess -9.1 FiO2 ROOM AIR Sodium Potassium Chloride Carbon Dioxide Anion Gap BUN Creatinine Est GFR ( Amer) Est GFR (Non-Af Amer) Glucose Calcium Magnesium 1.8 10/11/18 17:21 Catheterized Urine Urine Culture - Final Escherichia Coli 10/11/18 17:40 Troponin I < 0.012 Impressions: Abdomen/Pelvis CT 10/11/18 15:18 IMPRESSION: STABLE CHRONIC FINDINGS. AORTOILIAC ENDOGRAFT AND BILATERAL RENAL STENTS, LEFT ADRENAL MASS, CHRONIC ATROPHY OF THE LEFT KIDNEY. ALL UNCHANGED. NO ACUTE PROCESS IN THE ABDOMEN OR PELVIS. Chest X-Ray 10/13/18 06:00 IMPRESSION: STABLE APPEARANCE. NO SIGNIFICANT CHANGE. Assessment and Plan - Diagnosis (1) Sepsis Qualifiers: Sepsis type: sepsis due to unspecified organism Qualified Code(s): A41.9 - Sepsis, unspecified organism Is this a current diagnosis for this admission?: Yes Plan: 10/12/2018-the patient is still acidotic. She now requires 2 vasopressor medications in addition to IV fluids. I have discussed the benefits of having a central line in the patient is in favor of this. The urine culture has a preliminary growth of gram-negative bacilli. She has had Klebsiella in the past. She is on broad spectrum antibiotics and should cover any gram-negative bacillus identified. We will continue fluids and correct acidosis and try and wean from vasopressors. 10/13/2018-the organism in the urine is E. coli. It is pansensitive. I will change her antibiotic therapy. We can use a narrow spectrum cephalosporin. Her blood pressure is improved and we are weaning her from the levo fed. Her pH and bicarb are improving as well. We will continue the bicarb drip until completion of this liter and I have started sodium bicarbonate tablets. (2) UTI (urinary tract infection) Qualifiers: Urinary tract infection type: site unspecified Hematuria presence: with hematuria Qualified Code(s): N39.0 - Urinary tract infection, site not specified; R31.9 - Hematuria, unspecified Is this a current diagnosis for this admission?: Yes Plan: 10/12/2018-preliminary growth is gram-negative bacilli. Continue current antibiotics. Narrow the spectrum of antibiotic when further identification and sensitivities available. 10/13/2018-E. coli identified. The patient will complete her antibiotic therapy on Ancef. 7 days total antibiotics should be adequate. (3) Obstructive sleep apnea Is this a current diagnosis for this admission?: Yes Plan: 10/12/2018-we will utilize BiPAP at night. Oxygen during the day to keep saturations above 90% 10/13/2018-as above (4) Chronic pain Qualifiers: Chronic pain type: chronic pain syndrome Qualified Code(s): G89.4 - Chronic pain syndrome Is this a current diagnosis for this admission?: Yes Plan: 10/12/2018-we will continue her home medication regimen 10/13/2018-she is back on her home medication regimen with some PRN medication available. Continue to monitor. I will have physical therapy start to work with her tomorrow. (5) CKD (chronic kidney disease), stage III Is this a current diagnosis for this admission?: Yes Plan: 10/12/2018-the patient exhibits acute on chronic kidney disease. This is likely from hypoperfusion due to the sepsis. This is most likely acute tubular necrosis. We will try and improve perfusion and correct pressures. This should allow her renal function to return to baseline. 10/13/2018-the patient is likely at her baseline. She does continue to improve slowly each day. We will continue to monitor her renal function as we continue treatment for her sepsis. (6) Metabolic acidosis Is this a current diagnosis for this admission?: Yes Plan: 10/12/2018-the patient had severe acidosis with a pH of 7.13. She was given a b olus of bicarbonate in the emergency department. I have initiated an infusion of bicarbonate with 150 mEq and a liter of D5W at a rate of 100 mL/h. This will be adjusted based on review of her laboratory studies and arterial blood gases. Her lactic acid was never out of the normal range. We will continue to monitor her closely including her acid-base balance, intake and outputs and laboratory studies 10/13/2018-continues to improve. Will recheck ABG tomorrow. Oral sodium bicarbonate initiated today as noted above. - Time Time Spent with patient: 15-24 minutes Medications reviewed and adjusted accordingly: Yes
[2018-10-13] MEDS: OLANZAPINE 5 MG TABLET PO SCH (21:49)
[2018-10-14] MEDS ORDERED: ONDANSETRON HCL INJ/PF 4 MG/2 ML SDV ONE (02:38)
[2018-10-14] MEDS ORDERED: ONDANSETRON HCL INJ/PF 4 MG/2 ML SDV IV PRN (02:56)
[2018-10-14] MEDS: OXYCODONE-ACETAMINOPHEN 5-325 MG TABLET PO PRN ×2 (03:54→14:55)
[2018-10-14 05:13] LABS: ABSOLUTE LYMPHOCYTES (AUTO) 1.3 10^3/uL (0.5-4.7); ABSOLUTE MONOCYTES (AUTO) 0.5 10^3/uL (0.1-1.4); ABSOLUTE NEUT (AUTO) 17.4 10^3/uL (1.7-8.2); BASOPHILS % (AUTO) 0.1 % (0-2); HEMOGLOBIN 9.8 g/dL (12.0-15.5); LYMPHOCYTES % (AUTO) 6.9 % (13-45); MEAN CORPUSCULAR HEMOGLOBIN 26.7 pg (27.0-33.4); MEAN CORPUSCULAR HGB CONC 32.6 g/dL (32.0-36.0); MEAN CORPUSCULAR VOLUME 82 fl (80-97); MONOCYTES % (AUTO) 2.4 % (3-13); PLATELET COUNT 197 10^3/uL (150-450); RED BLOOD COUNT 3.66 10^6/uL (3.72-5.28); RED CELL DISTRIBUTION WIDTH 17.5 % (11.5-14.0); SEGMENTED NEUTROPHILS % (AUTO) 90.6 % (42-78); TOTAL CELLS COUNTED % (AUTO) 100 %; WHITE BLOOD COUNT 19.2 10^3/uL (4.0-10.5)
[2018-10-14 05:24] LABS: ARTERIAL BLOOD BASE EXCESS 0.3 mmol/L; ARTERIAL BLOOD H2CO3 1.06 mmol/L (1.05-1.35); ARTERIAL BLOOD O2 SATURATION 97.3 % (94-98); ARTERIAL BLOOD PCO2 35.2 mmHg (35-45); ARTERIAL BLOOD PH 7.45 (7.35-7.45); ARTERIAL BLOOD PO2 90.4 mmHg (80-100); ARTERIAL BLOOD TOTAL CO2 25.1 mmol/L (21-25)
[2018-10-14 05:27] LABS: ARTERIAL BLOOD FIO2 ROOM AIR
[2018-10-14 05:41] LABS: ANION GAP 7 (5-19); BLOOD UREA NITROGEN 25 mg/dL (7-20); CALCIUM 8.5 mg/dL (8.4-10.2); CARBON DIOXIDE 27 mmol/L (22-30); CHLORIDE 106 mmol/L (98-107); GLUCOSE 98 mg/dL (75-110); POTASSIUM 3.6 mmol/L (3.6-5.0)
[2018-10-14] MEDS: HYDROCORTISONE SOD SUCCINATE INJ/PF 100 MG/2 ML SDV IV SCH ×3 (06:27→23:05)
[2018-10-14] MEDS: HEPARIN SOD (PORCINE) 5,000 UNIT/ML 1 ML VIAL SUBCUT SCH ×3 (06:27→23:07)
[2018-10-14] MEDS: CEFAZOLIN SODIUM 2 GM in DEXTROSE 5%-WATER 100 ML IV SCH ×3 (06:28→17:45)
[2018-10-14] MEDS: SODIUM BICARBONATE 650 MG TABLET PO SCH ×2 (07:34→11:22)
--- NOTE | 2018-10-14 07:38 | RADIOLOGY REPORT (SQ) ---
Acute abdominal series on 10/14/2018 at 6:40 AM CLINICAL INDICATION: Vomiting, abdominal rigidity COMPARISON: Chest x-ray from 10/13/[address] abdomen and pelvis from 10/11/2018 FINDINGS: CHEST: Left IJ central venous catheter tip is at the cavoatrial junction. There is elevation of the right hemidiaphragm. Borderline cardiomegaly is noted. Vascular calcification is noted in the aorta. There is minimal biapical scarring. Lungs are otherwise clear. Hilar and mediastinal contours are within normal limits. ABDOMEN: The patient is status post endoluminal repair of abdominal aortic aneurysm. Probable Marinelli catheter is noted in the bladder. There is no free air. There are dilated loops of small bowel in the midabdomen with some increased bowel gas in the upper abdomen with possible air-fluid levels noted on the upright view suggesting an early or partial small bowel obstruction. Consider repeat CT. No abnormal calcification or mass effect is noted. IMPRESSION: 1. No acute cardiopulmonary disease. 2. New dilated loops of small bowel with air-fluid levels suggesting developing small bowel obstruction. Consider repeat CT of the abdomen and pelvis.
[2018-10-14] MEDS: IPRATROPIUM/ALBUTEROL 0.5-2.5 MG/3 ML AMPUL NEB SCH ×2 (07:56→21:21)
[2018-10-14] MEDS ORDERED: DEXTROSE 40% GEL 15 GM TUBE PO PRN ×2 (08:43)
[2018-10-14] MEDS ORDERED: DEXTROSE 50%-WATER 25 GM/50 ML DISP.SYRIN IV PRN ×2 (08:43)
[2018-10-14] MEDS ORDERED: GLUCAGON,HUMAN RECOMB 1 MG INJ SUBCUT PRN (08:43)
[2018-10-14] MEDS ORDERED: POTASSIUM CHLORIDE 10 MEQ CAPSULE.ER PO SCH (10:00)
[2018-10-14] MEDS ORDERED: BISACODYL 5 MG TABEC PO PRN (12:44)
[2018-10-14] MEDS: PROMETHAZINE HCL INJ 25 MG/1 ML VIAL IV PRN ×3 (13:45→22:00)
[2018-10-14] MEDS ORDERED: ACETAMINOPHEN 325 MG TABLET NG PRN (14:53)
[2018-10-14] MEDS ORDERED: OXYCODONE-ACETAMINOPHEN 5-325 MG TABLET NG PRN ×2 (14:54)
[2018-10-14] MEDS ORDERED: PHARMACY COMMUNICATION ORDER MC NR (15:00)
[2018-10-14] MEDS ORDERED: SODIUM BICARBONATE 650 MG TABLET NG SCH (16:00)
--- NOTE | 2018-10-14 16:49 | PDOC PROGRESS REPORT ---
Subjective Progress Note for:: 10/14/18 Subjective:: The patient's his is at the bedside. She developed distention in the abdomen with discomfort and nausea this morning. Abdominal x-ray showed ileus. She is upset because she wonders if she is feeling better. Reason For Visit: UTI, SEPSIS, ARF Physical Exam Vital Signs: Temp Pulse Resp BP Pulse Ox 98.2 F 88 11 L 144/71 H 95 10/14/18 12:57 10/14/18 12:57 10/14/18 12:57 10/14/18 12:57 10/14/18 12:57 Intake & Output 10/13/18 10/14/18 10/15/18 06:59 06:59 06:59 Intake Total 4227 1749 100 Output Total 3185 1535 253 Balance 1042 214 -153 Weight 77.5 kg 78.4 kg General appearance: PRESENT: cooperative, mild distress, well-developed Head exam: PRESENT: atraumatic, normocephalic Ear exam: PRESENT: normal external ear exam Mouth exam: PRESENT: dry mucosa, tongue midline Respiratory exam: PRESENT: clear to auscultation abraham, symmetrical, unlabored. ABSENT: rales, rhonchi, tachypnea, wheezes Cardiovascular exam: PRESENT: RRR, +S1, +S2 GI/Abdominal exam: PRESENT: distended, hypoactive bowel sounds, soft, tenderness - Diffusely across the lower abdomen. ABSENT: firm Rectal exam: PRESENT: deferred Extremities exam: ABSENT: pedal edema Neurological exam: PRESENT: alert, awake, oriented to person, oriented to place, oriented to time, oriented to situation, CN II-XII grossly intact Psychiatric exam: PRESENT: anxious, appropriate affect - Affect reflects her trepidation. ABSENT: agitated Focused psych exam: ABSENT: delusional, restlessness Results Laboratory Results: 10/14/18 05:01 10/14/18 05:01 10/14/18 10/14/18 10/14/18 05:01 05:01 05:01 WBC 19.2 H RBC 3.66 L Hgb 9.8 L Hct 30.0 L MCV 82 MCH 26.7 L MCHC 32.6 RDW 17.5 H Plt Count 197 Seg Neutrophils % 90.6 H Lymphocytes % 6.9 L Monocytes % 2.4 L Eosinophils % 0.0 Basophils % 0.1 Absolute Neutrophils 17.4 H Absolute Lymphocytes 1.3 Absolute Monocytes 0.5 Absolute Eosinophils 0.0 Absolute Basophils 0.0 Carbonic Acid 1.06 HCO3/H2CO3 Ratio 22:1 ABG pH 7.45 ABG pCO2 35.2 ABG pO2 90.4 ABG HCO3 24.0 ABG O2 Saturation 97.3 ABG Base Excess 0.3 FiO2 ROOM AIR Sodium 139.6 Potassium 3.6 Chloride 106 Carbon Dioxide 27 Anion Gap 7 BUN 25 H Creatinine 1.27 H Est GFR ( Amer) 52 L Est GFR (Non-Af Amer) 43 L Glucose 98 Calcium 8.5 10/11/18 17:40 Troponin I < 0.012 Impressions: Abdomen/Pelvis CT 10/11/18 15:18 IMPRESSION: STABLE CHRONIC FINDINGS. AORTOILIAC ENDOGRAFT AND BILATERAL RENAL STENTS, LEFT ADRENAL MASS, CHRONIC ATROPHY OF THE LEFT KIDNEY. ALL UNCHANGED. NO ACUTE PROCESS IN THE ABDOMEN OR PELVIS. Chest X-Ray 10/13/18 06:00 IMPRESSION: STABLE APPEARANCE. NO SIGNIFICANT CHANGE. Acute Abdomen Series 10/14/18 00:00 IMPRESSION: 1. No acute cardiopulmonary disease. 2. New dilated loops of small bowel with air-fluid levels suggesting developing small bowel obstruction. Consider repeat CT of the abdomen and pelvis. Assessment and Plan - Diagnosis (1) Sepsis Qualifiers: Sepsis type: Escherichia coli Qualified Code(s): A41.51 - Sepsis due to Escherichia coli [E. coli] Is this a current diagnosis for this admission?: Yes Plan: 10/12/2018-the patient is still acidotic. She now requires 2 vasopressor medications in addition to IV fluids. I have discussed the benefits of having a central line in the patient is in favor of this. The urine culture has a preliminary growth of gram-negative bacilli. She has had Klebsiella in the past. She is on broad spectrum antibiotics and should cover any gram-negative bacillus identified. We will continue fluids and correct acidosis and try and wean from vasopressors. 10/13/2018-the organism in the urine is E. coli. It is pansensitive. I will change her antibiotic therapy. We can use a narrow spectrum cephalosporin. Her blood pressure is improved and we are weaning her from the levo fed. Her pH and bicarb are improving as well. We will continue the bicarb drip until completion of this liter and I have started sodium bicarbonate tablets. 10/14/2018-E. coli was identified in the urine. This is the most likely etiology for her sepsis. She is now off of vasopressors and will be downgraded. (2) UTI (urinary tract infection) Qualifiers: Urinary tract infection type: site unspecified Hematuria presence: with hematuria Qualified Code(s): N39.0 - Urinary tract infection, site not specified; R31.9 - Hematuria, unspecified Is this a current diagnosis for this admission?: Yes Plan: 10/12/2018-preliminary growth is gram-negative bacilli. Continue current antibiotics. Narrow the spectrum of antibiotic when further identification and sensitivities available. 10/13/2018-E. coli identified. The patient will complete her antibiotic therapy on Ancef. 7 days total antibiotics should be adequate. 10/14/2018-E. coli has been identified. Continue cefazolin for complete course of antibiotics. 7 days should be appropriate. (3) Obstructive sleep apnea Is this a current diagnosis for this admission?: Yes Plan: BiPAP 10/14/2018-continue BiPAP at night for sleep apnea (4) Chronic pain Qualifiers: Chronic pain type: chronic pain syndrome Qualified Code(s): G89.4 - Chronic pain syndrome Is this a current diagnosis for this admission?: Yes Plan: Complicated by opiate dependence. Narcotics limited by hypotension 10/14/2018-the patient has chronic pain. A lot of it is in her right hip. Unfortunately she has developed an ileus and that has increased abdominal pain associated with it. (5) CKD (chronic kidney disease), stage III Is this a current diagnosis for this admission?: Yes Plan: Acute on chronic kidney disease secondary to a #1. IV fluid challenge. Avoid nephrotoxic meds and doses pharmacy dosing of medications ordered. 10/14/2018-BUN and creatinine continue to slowly improved. The patient is almost in the normal range. Will need to monitor fluid status especially considering the ileus. She was having loose stool. She may need IV fluid. (6) Metabolic acidosis Is this a current diagnosis for this admission?: Yes Plan: 10/12/2018-the patient had severe acidosis with a pH of 7.13. She was given a bolus of bicarbonate in the emergency department. I have initiated an infusion of bicarbonate with 150 mEq and a liter of D5W at a rate of 100 mL/h. This will be adjusted based on review of her laboratory studies and arterial blood gases. Her lactic acid was never out of the normal range. We will continue to monitor her closely including her acid-base balance, intake and outputs and laboratory studies 10/13/2018-continues to improve. Will recheck ABG tomorrow. Oral sodium bicarbonate initiated today as noted above. 10/14/2018-pH and PCO2 are back to normal as is her serum bicarbonate level. I will again to taper her off of the sodium bicarbonate tablets. (7) Ileus Is this a current diagnosis for this admission?: Yes Plan: 10/14/2018-the patient experienced increasing abdominal distention last night into this morning. X-ray shows dilated loops of bowel. She was stooling previously. She did want to try sips of liquids. I was informed by the nurse rand hat she tried sips and vomited. She is now n.p.o. and I have ordered a nasogastric tube. I did discuss this with the nurse and he said that she was refusing the nasogastric tube earlier. Hopefully she will allow this to be placed as I think it will get her better faster. Physical therapy started to work with her today. They did sit her on the edge of the bed. Increased activity will also be helpful. Because she is n.p.o. I did start gentle normal saline. (8) Abdominal pain Qualifiers: Abdominal location: lower abdomen, unspecified Qualified Code(s): R10.30 - Lower abdominal pain, unspecified Is this a current diagnosis for this admission?: Yes Plan: 10/14/2018-initially the abdominal discomfort present on admission and was felt to be due to the cystitis. The ileus I believe has superseded that. She does have laxative as ordered and so hopefully we can resolve the ileus shortly. - Time Time Spent with patient: 15-24 minutes Medications reviewed and adjusted accordingly: Yes
[2018-10-14] MEDS: NORMAL SALINE 1000 ML 1,000 ML IV PRN ×2 (17:45→20:27)
[2018-10-14] MEDS ORDERED: OLANZAPINE 5 MG TABLET NG SCH (22:00)
[2018-10-15] MEDS: CEFAZOLIN SODIUM 2 GM in DEXTROSE 5%-WATER 100 ML IV SCH ×5 (00:56→23:09)
[2018-10-15] MEDS ORDERED: OLANZAPINE INJ/PF 10 MG SDV IM ONE (03:00)
[2018-10-15] MEDS ORDERED: MORPHINE SULFATE 10 MG/ML INJ IV ONE (03:00)
[2018-10-15] MEDS: HEPARIN SOD (PORCINE) 5,000 UNIT/ML 1 ML VIAL SUBCUT SCH ×3 (06:12→22:17)
[2018-10-15] MEDS: HYDROCORTISONE SOD SUCCINATE INJ/PF 100 MG/2 ML SDV IV SCH ×2 (06:12→15:03)
[2018-10-15] MEDS: PROMETHAZINE HCL INJ 25 MG/1 ML VIAL IV PRN ×2 (06:51→22:48)
[2018-10-15] MEDS ORDERED: MAG HYDROX/AL HYDROX/SIMETH SUSP 30 ML UDCUP NG PRN (07:30)
[2018-10-15] MEDS ORDERED: DEXTROSE 40% GEL 15 GM TUBE NG PRN ×2 (07:30)
[2018-10-15] MEDS ORDERED: MAGNESIUM HYDROXIDE SUSP 30 ML UDCUP NG PRN (07:30)
[2018-10-15 07:39] LABS: ABSOLUTE BASOPHILS # (AUTO) 0.1 10^3/uL (0.0-0.2); ABSOLUTE LYMPHOCYTES (AUTO) 2.2 10^3/uL (0.5-4.7); ABSOLUTE MONOCYTES (AUTO) 0.4 10^3/uL (0.1-1.4); ABSOLUTE NEUT (AUTO) 10.9 10^3/uL (1.7-8.2); BASOPHILS % (AUTO) 0.4 % (0-2); EOSINOPHILS % (AUTO) 0.1 % (0-6); HEMATOCRIT 30.1 % (36.0-47.0); HEMOGLOBIN 9.8 g/dL (12.0-15.5); LYMPHOCYTES % (AUTO) 16.4 % (13-45); MEAN CORPUSCULAR HGB CONC 32.6 g/dL (32.0-36.0); MEAN CORPUSCULAR VOLUME 83 fl (80-97); MONOCYTES % (AUTO) 2.7 % (3-13); PLATELET COUNT 217 10^3/uL (150-450); RED BLOOD COUNT 3.63 10^6/uL (3.72-5.28); RED CELL DISTRIBUTION WIDTH 17.6 % (11.5-14.0); SEGMENTED NEUTROPHILS % (AUTO) 80.4 % (42-78); TOTAL CELLS COUNTED % (AUTO) 100 %; WHITE BLOOD COUNT 13.6 10^3/uL (4.0-10.5)
[2018-10-15 08:01] LABS: ANION GAP 5 (5-19); BLOOD UREA NITROGEN 25 mg/dL (7-20); CALCIUM 8.4 mg/dL (8.4-10.2); CARBON DIOXIDE 31 mmol/L (22-30); CHLORIDE 104 mmol/L (98-107); GLUCOSE 79 mg/dL (75-110); POTASSIUM 3.4 mmol/L (3.6-5.0)
[2018-10-15] MEDS: IPRATROPIUM/ALBUTEROL 0.5-2.5 MG/3 ML AMPUL NEB SCH ×2 (08:43→20:54)
[2018-10-15] MEDS ORDERED: POTASSIUM CHLORIDE 20 MEQ PACKET NG SCH (10:00)
--- NOTE | 2018-10-15 10:43 | RADIOLOGY REPORT (SQ) ---
EXAM DESCRIPTION: KUB/ABDOMEN (SINGLE VIEW) COMPLETED DATE/TIME: 10/15/2018 9:29 am REASON FOR STUDY: ileus COMPARISON: 10/14/2018 NUMBER OF VIEWS: One view. TECHNIQUE: Supine radiographic image of the abdomen acquired. LIMITATIONS: None. FINDINGS: BOWEL GAS PATTERN: Mild persistent small-bowel distention this is improved from yesterday. There is air in stool throughout the colon. CALCIFICATIONS: No suspicious calcifications. SOFT TISSUES: No gross mass or suggestion of organomegaly. HARDWARE: Endovascular stent graft is in place. BONES: No acute fracture. No worrisome bone lesions. OTHER: No other significant finding. IMPRESSION: Mild small-bowel distention remains most prominent in a single loop near the midline. O verall there is less small-bowel distention when compared to yesterday. TECHNICAL DOCUMENTATION: JOB ID: [id number] [email or web address] All Rights Reserved Reading location - IP/workstation name: [email or web address]
[2018-10-15] MEDS: NORMAL SALINE 1000 ML 1,000 ML IV PRN (12:02)
--- NOTE | 2018-10-15 12:37 | PDOC CONSULTATION ---
Consultation Consult Date: 10/12/18 Attending physician:: LEISA CLATYON Provider Consulted: RAMA CHENG Consult reason:: Septic shock History of Present Illness Admission Date/PCP: 10/11/18 20:21 LETA PRIEST DO History of Present Illness: KAREN MALDONADO is a 58 year old female, came to the emergency room complaining of abdominal pain 10 proceeding days of nausea vomiting and diarrhea found to be profoundly hypotensive with leukocytosis left shift was given empiric antibiotic therapy and taken to the ICU. She has a long prior medical history of chronic renal failure tobacco abuse up until the time of admission Past Medical History Cardiac Medical History: Reports: Hyperlipidema, Hypertension Pulmonary Medical History: Reports: Bronchitis, Chronic Obstructive Pulmonary Disease (COPD), Pneumonia Neurological Medical History: Denies: Multiple Sclerosis Renal/ Medical History: Reports: Chronic Kidney Disease Malignancy Medical History: Reports: Breast Cancer GI Medical History: Reports: Diverticulitis Denies: Crohn's Disease, Ulcerative Colitis Musculoskeltal Medical History: Reports: Arthritis Skin Medical History: Denies: Eczema, Psoriasis Psychiatric Medical History: Reports: Depression, General Anxiety Disorder, Tobacco Dependency Traumatic Medical History: Denies: Gunshot Wound, Pneumothorax, Stab Wound Hematology: Denies: Sickle Cell Disease Infectious Medical History: Reports: HIV Past Surgical History Past Surgical History: Reports: Cholecystectomy, Hysterectomy, Tubal Ligation Social History Lives with: Family Smoking Status: Current Every Day Smoker Cigarettes Packs Per Day: 2 Number of Years Smokin Passive smoke exposure as: Both Frequency of Alcohol Use: None Hx Recreational Drug Use: Yes Drugs: Marijuana Hx Prescription Drug Abuse: Yes Have you had any respiratory illnesses as a child?: No Have you been exposed to any sick contacts recently?: No Have you had any recent respiratory illnesses?: No Have you travelled outside of [place] in the past 12 months?: No - Advance Directive Resuscitation Status: Full Code Family History Family History: COPD, Hypertension Parental Family History Reviewed: No Children Family History Reviewed: No Sibling(s) Family History Reviewed.: No Medication/Allergy Home Medications: Oxycodone HCl/Acetaminophen [Endocet 10-325 mg Tablet] 1 tab PO Q8HP PRN 07/16/18 Allergies/Adverse Reactions: No Known Allergies Allergy (Verified 05/15/18 10:38) Review of Systems ROS unobtainable: Due to mental status Physical Exam Vital Signs: Temp Pulse Resp BP Pulse Ox 97.8 F 96 13 91/47 L 99 10/11/18 19:00 10/12/18 09:02 10/12/18 10:25 10/12/18 10:25 10/12/18 10:25 Intake & Output 10/11/18 10/12/18 10/13/18 06:59 06:59 06:59 Intake Total 7300 493 Output Total 450 Balance 7300 43 Weight 73 kg General appearance: PRESENT: disheveled, mild distress, obese. ABSENT: cooperative Head exam: PRESENT: atraumatic, normocephalic Eye exam: PRESENT: conjunctiva pale, EOMI. ABSENT: nystagmus, periorbital swelling, scleral icterus Mouth exam: PRESENT: dry mucosa, neck supple, tongue midline Teeth exam: PRESENT: poor dentation Neck exam: ABSENT: carotid bruit, full ROM, JVD, lymphadenopathy, meningismus, tenderness, thyromegaly, tracheal deviation, tracheostomy, other Respiratory exam: PRESENT: decreased breath sounds, prolonged expiratory phas, rhonchi, unlabored. ABSENT: retraction, stridor Cardiovascular exam: PRESENT: irregular rhythm, +S1, tachycardia Pulses: PRESENT: normal radial pulses GI/Abdominal exam: PRESENT: soft, tenderness. ABSENT: mass Gentrourinary exam: PRESENT: indwelling catheter Extremities exam: PRESENT: pedal edema. ABSENT: calf tenderness, clubbing, joint swelling Musculoskeletal exam: ABSENT: deformity, dislocation Neurological exam: PRESENT: altered Skin exam: PRESENT: dry, mottled, other - Multiple decubiti Results Laboratory Results: 10/12/18 05:26 10/12/18 05:26 10/11/18 10/11/18 10/11/18 16:08 16:08 16:08 WBC 29.4 H RBC 4.38 Hgb 11.7 L Hct 37.2 MCV 85 MCH 26.6 L MCHC 31.4 L RDW 17.5 H Plt Count 300 Seg Neutrophils % Not Reportable Lymphocytes % Not Reportable Monocytes % Not Reportable Eosinophils % Not Reportable Basophils % Not Reportable Absolute Neutrophils Not Reportable Absolute Lymphocytes Not Reportable Absolute Monocytes Not Reportable Absolute Eosinophils Not Reportable Absolute Basophils Not Reportable Carbonic Acid HCO3/H2CO3 Ratio ABG pH ABG pCO2 ABG pO2 ABG HCO3 ABG O2 Saturation ABG Base Excess VBG pH 7.12 L* VBG pCO2 48.4 VBG HCO3 15.5 L VBG Base Excess -13.9 FiO2 Sodium 135.0 L Potassium 4.0 Chloride 111 H Carbon Dioxide 14 L Anion Gap 10 BUN 36 H Creatinine 2.46 H Est GFR ( Amer) 24 L Est GFR (Non-Af Amer) 20 L Glucose 91 Lactic Acid Calcium 8.4 Magnesium Total Bilirubin 0.9 AST 24 ALT 23 Alkaline Phosphatase 139 H Total Protein 5.7 L Albumin 3.1 L Urine Color Urine Appearance Urine pH Ur Specific [place] Urine Protein Urine Glucose (UA) Urine Ketones Urine Blood Urine Nitrite Ur Leukocyte Esterase Urine WBC (Auto) Urine RBC (Auto) 10/11/18 10/11/18 10/11/18 16:08 16:19 17:21 WBC RBC Hgb Hct MCV MCH MCHC RDW Plt Count Seg Neutrophils % Lymphocytes % Monocytes % Eosinophils % Basophils % Absolute Neutrophils Absolute Lymphocytes Absolute Monocytes Absolute Eosinophils Absolute Basophils Carbonic Acid HCO3/H2CO3 Ratio ABG pH ABG pCO2 ABG pO2 ABG HCO3 ABG O2 Saturation ABG Base Excess VBG pH VBG pCO2 VBG HCO3 VBG Base Excess FiO2 Sodium Potassium Chloride Carbon Dioxide Anion Gap BUN Creatinine Est GFR ( Amer) Est GFR (Non-Af Amer) Glucose Lactic Acid 2.1 Calcium Magnesium 1.4 L Total Bilirubin AST ALT Alkaline Phosphatase Total Protein Albumin Urine Color JACQUES Urine Appearance TURBID Urine pH 5.0 Ur Specific [place] 1.018 Urine Protein 100 H Urine Glucose (UA) NEGATIVE Urine Ketones NEGATIVE Urine Blood SMALL H Urine Nitrite NEGATIVE Ur Leukocyte Esterase LARGE H Urine WBC (Auto) >182 Urine RBC (Auto) 14 10/11/18 10/12/18 10/12/18 21:39 05:06 05:26 WBC 30.0 H* RBC 3.96 Hgb 10.7 L Hct 34.1 L MCV 86 MCH 26.9 L MCHC 31.2 L RDW 17.6 H Plt Count 213 Seg Neutrophils % Not Reportable Lymphocytes % Not Reportable Monocytes % Not Reportable Eosinophils % Not Reportable Basophils % Not Reportable Absolute Neutrophils Not Reportable Absolute Lymphocytes Not Reportable Absolute Monocytes Not Reportable Absolute Eosinophils Not Reportable Absolute Basophils Not Reportable Carbonic Acid 1.08 HCO3/H2CO3 Ratio 10:1 ABG pH 7.12 L* ABG pCO2 36.0 ABG pO2 83.7 ABG HCO3 11.5 L ABG O2 Saturation 92.7 L ABG Base Excess -16.9 VBG pH VBG pCO2 VBG HCO3 VBG Base Excess FiO2 2L Sodium Potassium Chloride Carbon Dioxide Anion Gap BUN Creatinine Est GFR ( Amer) Est GFR (Non-Af Amer) Glucose Lactic Acid 1.2 Calcium Magnesium Total Bilirubin AST ALT Alkaline Phosphatase Total Protein Albumin Urine Color Urine Appearance Urine pH Ur Specific [place] Urine Protein Urine Glucose (UA) Urine Ketones Urine Blood Urine Nitrite Ur Leukocyte Esterase Urine WBC (Auto) Urine RBC (Auto) 10/12/18 10/12/18 05:26 05:26 WBC RBC Hgb Hct MCV MCH MCHC RDW Plt Count Seg Neutrophils % Lymphocytes % Monocytes % Eosinophils % Basophils % Absolute Neutrophils Absolute Lymphocytes Absolute Monocytes Absolute Eosinophils Absolute Basophils Carbonic Acid HCO3/H2CO3 Ratio ABG pH ABG pCO2 ABG pO2 ABG HCO3 ABG O2 Saturation ABG Base Excess VBG pH VBG pCO2 VBG HCO3 VBG Base Excess FiO2 Sodium 139.5 Potassium 4.0 Chloride 117 H Carbon Dioxide 14 L Anion Gap 9 BUN 35 H Creatinine 2.03 H Est GFR ( Amer) 30 L Est GFR (Non-Af Amer) 25 L Glucose 87 Lactic Acid 1.9 Calcium 7.7 L Magnesium Total Bilirubin AST ALT Alkaline Phosphatase Total Protein Albumin Urine Color Urine Appearance Urine pH Ur Specific [place] Urine Protein Urine Glucose (UA) Urine Ketones Urine Blood Urine Nitrite Ur Leukocyte Esterase Urine WBC (Auto) Urine RBC (Auto) 10/11/18 17:40 Troponin I < 0.012 Impressions: Abdomen/Pelvis CT 10/11/18 15:18 IMPRESSION: STABLE CHRONIC FINDINGS. AORTOILIAC ENDOGRAFT AND BILATERAL RENAL STENTS, LEFT ADRENAL MASS, CHRONIC ATROPHY OF THE LEFT KIDNEY. ALL UNCHANGED. NO ACUTE PROCESS IN THE ABDOMEN OR PELVIS. Chest X-Ray 10/12/18 00:00 IMPRESSION: Mild bibasilar atelectasis with otherwise no acute disease. Assessment & Plan - Diagnosis (1) Abdominal pain Qualifiers: Abdominal location: lower abdomen, unspecified Qualified Code(s): R10.30 - Lower abdominal pain, unspecified Is this a current diagnosis for this admission?: Yes Plan: Chronic x10 days started in her right lower quadrant is now generalized CT scan was not diagnostic (2) Decubitus ulcer of sacral region Qualifiers: Pressure injury stage: unspecified pressure injury stage Qualified Code(s): L89.159 - Pressure ulcer of sacral region, unspecified stage Is this a current diagnosis for this admission?: Yes Plan: Possibly source for sepsis (3) Metabolic acidosis Is this a current diagnosis for this admission?: Yes Plan: Septic shock RTA (4) Obstructive sleep apnea Is this a current diagnosis for this admission?: Yes Plan: NIPPV hopefully will avoid intubation (5) Severe sepsis Is this a current diagnosis for this admission?: Yes Plan: Vasopressors (6) UTI (urinary tract infection) Qualifiers: Urinary tract infection type: site unspecified Hematuria presence: with hematuria Qualified Code(s): N39.0 - Urinary tract infection, site not specified; R31.9 - Hematuria, unspecified Is this a current diagnosis for this admission?: Yes Plan: Culture Klebsiella - Time Total Critical Time (Minutes): 65
[2018-10-15] MEDS ORDERED: ACETAMINOPHEN 325 MG TABLET PO PRN ×2 (15:23→16:00)
[2018-10-15] MEDS ORDERED: MAGNESIUM HYDROXIDE SUSP 30 ML UDCUP PO PRN (15:35)
[2018-10-15] MEDS: OXYCODONE HCL IR 5 MG TABLET PO PRN ×2 (15:45→22:47)
[2018-10-15] MEDS ORDERED: PHARMACY COMMUNICATION ORDER MC NR (15:45)
[2018-10-15] MEDS: POTASSI CL 20 MEQ/50 ML RIDER 20 MEQ/50 ML RTUPB IV SCH ×2 (15:46→17:41)
[2018-10-15] MEDS ORDERED: MAG HYDROX/AL HYDROX/SIMETH SUSP 30 ML UDCUP PO PRN (16:00)
[2018-10-15] MEDS ORDERED: FUROSEMIDE INJ/PF 20 MG/2 ML SDV IV ONE (18:00)
--- NOTE | 2018-10-15 21:31 | PDOC PROGRESS REPORT ---
Subjective Progress Note for:: 10/15/18 Subjective:: Patient resting comfortably. KUB film was better and she has bowel sounds so the NG tube has been removed. She does not appear to be in any discomfort. Reason For Visit: UTI, SEPSIS, ARF Physical Exam Vital Signs: Temp Pulse Resp BP Pulse Ox 97.3 F 84 16 136/59 H 93 10/15/18 11:44 10/15/18 11:44 10/15/18 11:44 10/15/18 11:44 10/15/18 11:44 Intake & Output 10/14/18 10/15/18 10/16/18 06:59 06:59 06:59 Intake Total 9561 686 0107 Output Total 1535 2328 Balance 214 -1812 1200 Weight 78.4 kg 77.8 kg General appearance: PRESENT: no acute distress, cooperative, well-developed, well-nourished Head exam: PRESENT: atraumatic, normocephalic Eye exam: PRESENT: conjunctiva pink. ABSENT: scleral icterus Ear exam: PRESENT: normal external ear exam Mouth exam: PRESENT: dry mucosa, tongue midline Respiratory exam: PRESENT: clear to auscultation abraham, symmetrical, unlabored. ABSENT: rales, rhonchi, tachypnea, wheezes Cardiovascular exam: PRESENT: RRR, +S1, +S2, other - S3 GI/Abdominal exam: PRESENT: normal bowel sounds, soft. ABSENT: distended, tenderness Extremities exam: ABSENT: joint swelling, pedal edema Musculoskeletal exam: PRESENT: normal inspection. ABSENT: deformity Neurological exam: PRESENT: alert, awake, oriented to person, oriented to place, oriented to situation, CN II-XII grossly intact Psychiatric exam: PRESENT: flat affect. ABSENT: agitated, anxious Focused psych exam: ABSENT: delusional, restlessness Results Laboratory Results: 10/15/18 06:00 10/15/18 06:00 10/15/18 10/15/18 06:00 06:00 WBC 13.6 H RBC 3.63 L Hgb 9.8 L Hct 30.1 L MCV 83 MCH 27.0 MCHC 32.6 RDW 17.6 H Plt Count 217 Seg Neutrophils % 80.4 H Lymphocytes % 16.4 Monocytes % 2.7 L Eosinophils % 0.1 Basophils % 0.4 Absolute Neutrophils 10.9 H Absolute Lymphocytes 2.2 Absolute Monocytes 0.4 Absolute Eosinophils 0.0 Absolute Basophils 0.1 Sodium 140.4 Potassium 3.4 L Chloride 104 Carbon Dioxide 31 H Anion Gap 5 BUN 25 H Creatinine 1.05 Est GFR ( Amer) > 60 Est GFR (Non-Af Amer) 53 L Glucose 79 Calcium 8.4 Magnesium 2.1 10/11/18 17:40 Troponin I < 0.012 Impressions: Abdomen/Pelvis CT 10/11/18 15:18 IMPRESSION: STABLE CHRONIC FINDINGS. AORTOILIAC ENDOGRAFT AND BILATERAL RENAL STENTS, LEFT ADRENAL MASS, CHRONIC ATROPHY OF THE LEFT KIDNEY. ALL UNCHANGED. NO ACUTE PROCESS IN THE ABDOMEN OR PELVIS. Chest X-Ray 10/13/18 06:00 IMPRESSION: STABLE APPEARANCE. NO SIGNIFICANT CHANGE. Acute Abdomen Series 10/14/18 00:00 IMPRESSION: 1. No acute cardiopulmonary disease. 2. New dilated loops of small bowel with air-fluid levels suggesting developing small bowel obstruction. Consider repeat CT of the abdomen and pelvis. KUB X-Ray 10/15/18 06:00 IMPRESSION: Mild small-bowel distention remains most prominent in a single loop near the midline. Overall there is less small-bowel distention when compared to yesterday. Assessment and Plan - Diagnosis (1) Sepsis Qualifiers: Sepsis type: Escherichia coli Qualified Code(s): A41.51 - Sepsis due to Escherichia coli [E. coli] Is this a current diagnosis for this admission?: Yes Plan: 10/12/2018-the patient is still acidotic. She now requires 2 vasopressor medications in addition to IV fluids. I have discussed the benefits of having a central line in the patient is in favor of this. The urine culture has a preliminary growth of gram-negative bacilli. She has had Klebsiella in the past. She is on broad spectrum antibiotics and should cover any gram-negative bacillus identified. We will continue fluids and correct acidosis and try and wean from vasopressors. 10/13/2018-the organism in the urine is E. coli. It is pansensitive. I will change her antibiotic therapy. We can use a narrow spectrum cephalosporin. Her blood pressure is improved and we are weaning her from the levo fed. Her pH and bicarb are improving as well. We will continue the bicarb drip until completion of this liter and I have started sodium bicarbonate tablets. 10/14/2018-E. coli was identified in the urine. This is the most likely etiology for her sepsis. She is now off of vasopressors and will be downgraded. 10/15/2018-sepsis resolved (2) UTI (urinary tract infection) Qualifiers: Urinary tract infection type: site unspecified Hematuria presence: with hematuria Qualified Code(s): N39.0 - Urinary tract infection, site not specified; R31.9 - Hematuria, unspecified Is this a current diagnosis for this admission?: Yes Plan: 10/12/2018-preliminary growth is gram-negative bacilli. Continue current antib iotics. Narrow the spectrum of antibiotic when further identification and sensitivities available. 10/13/2018-E. coli identified. The patient will complete her antibiotic therapy on Ancef. 7 days total antibiotics should be adequate. 10/14/2018-E. coli has been identified. Continue cefazolin for complete course of antibiotics. 7 days should be appropriate. 10/15/2018-continue cefazolin for E. coli (3) Obstructive sleep apnea Is this a current diagnosis for this admission?: Yes Plan: BiPAP 10/14/2018-continue BiPAP at night for sleep apnea 10/15/2018-seems to be tolerating BiPAP at night. Continue same. (4) Chronic pain Qualifiers: Chronic pain type: chronic pain syndrome Qualified Code(s): G89.4 - Chronic pain syndrome Is this a current diagnosis for this admission?: Yes Plan: Complicated by opiate dependence. Narcotics limited by hypotension 10/14/2018-the patient has chronic pain. A lot of it is in her right hip. Unfortunately she has developed an ileus and that has increased abdominal pain associated with it. 10/15/2018-we are continuing her home medication regimen. I believe increased activity with physical therapy will help. (5) CKD (chronic kidney disease), stage III Is this a current diagnosis for this admission?: Yes Plan: Acute on chronic kidney disease secondary to a #1. IV fluid challenge. Avoid n ephrotoxic meds and doses pharmacy dosing of medications ordered. 10/14/2018-BUN and creatinine continue to slowly improved. The patient is almost in the normal range. Will need to monitor fluid status especially considering the ileus. She was having loose stool. She may need IV fluid. 10/15/2018-serum creatinine in fact is normal and the BUN is close to normal. She is likely better than her baseline. Continue to monitor renal function with the current treatment plan. (6) Metabolic acidosis Is this a current diagnosis for this admission?: Yes Plan: 10/12/2018-the patient had severe acidosis with a pH of 7.13. She was given a bolus of bicarbonate in the emergency department. I have initiated an infusion of bicarbonate with 150 mEq and a liter of D5W at a rate of 100 mL/h. This will be adjusted based on review of her laboratory studies and arterial blood gases. Her lactic acid was never out of the normal range. We will continue to monitor her closely including her acid-base balance, intake and outputs and laboratory studies 10/13/2018-continues to improve. Will recheck ABG tomorrow. Oral sodium bicarbonate initiated today as noted above. 10/14/2018-pH and PCO2 are back to normal as is her serum bicarbonate level. I will again to taper her off of the sodium bicarbonate tablets. 10/15/2018-metabolic acidosis is resolved. She is no longer on bicarbonate tablets. (7) Ileus Is this a current diagnosis for this admission?: Yes Plan: 10/14/2018-the patient experienced increasing abdominal distention last night into this morning. X-ray shows dilated loops of bowel. She was stooling previously. She did want to try sips of liquids. I was informed by the nurse that she tried sips and vomited. She is now n.p.o. and I have ordered a n asogastric tube. I did discuss this with the nurse and he said that she was refusing the nasogastric tube earlier. Hopefully she will allow this to be placed as I think it will get her better faster. Physical therapy started to work with her today. They did sit her on the edge of the bed. Increased activity will also be helpful. Because she is n.p.o. I did start gentle normal saline. 10/15/2018-the nasogastric tube was effective last night. She could not wait till it was taken out this morning. I repeated a KUB study and that was improved. Nasogastric tube output decreased. Bowel sounds were positive. After the tube was removed he started a clear liquid diet and we will advance as tolerated. (8) Abdominal pain Qualifiers: Abdominal location: lower abdomen, unspecified Qualified Code(s): R10.30 - Lower abdominal pain, unspecified Is this a current diagnosis for this admission?: Yes Plan: 10/14/2018-initially the abdominal discomfort present on admission and was felt to be due to the cystitis. The ileus I believe has superseded that. She does have laxative as ordered and so hopefully we can resolve the ileus shortly. 10/15/2018-she had initial abdominal discomfort from the cystitis however her distention and pain increased significantly from the ileus. She is no longer distended and has minimal discomfort. (9) Leukocytosis Qualifiers: Leukocytosis type: bandemia Qualified Code(s): D72.825 - Bandemia Is this a current diagnosis for this admission?: Yes Plan: 10/15/2018-the patient had significant leukocytosis with white blood cell count of 30,000. She is down to 13,000 and will likely be normal tomorrow. Continue antibiotics as ordered. - Time Time Spent with patient: 25-34 minutes - The patient's was at the bedside. I spent some time going through all of the different facets of her improvement including the resolution of the ileus, review of all the labs and x- rays as well as the plan for increased activity with physical therapy. Medications reviewed and adjusted accordingly: Yes Anticipated discharge: Home with Homehealth
[2018-10-15] MEDS: OLANZAPINE 5 MG TABLET PO SCH (22:41)
[2018-10-16] MEDS: CEFAZOLIN SODIUM 2 GM in DEXTROSE 5%-WATER 100 ML IV SCH (05:44)
[2018-10-16] MEDS: HEPARIN SOD (PORCINE) 5,000 UNIT/ML 1 ML VIAL SUBCUT SCH ×3 (05:44→21:52)
[2018-10-16] MEDS: OXYCODONE HCL IR 5 MG TABLET PO PRN ×3 (06:00→18:16)
[2018-10-16 06:29] LABS: ABSOLUTE EOSINOPHILS # (AUTO) 0.1 10^3/uL (0.0-0.6); ABSOLUTE LYMPHOCYTES (AUTO) 3.2 10^3/uL (0.5-4.7); ABSOLUTE MONOCYTES (AUTO) 0.6 10^3/uL (0.1-1.4); ABSOLUTE NEUT (AUTO) 6.6 10^3/uL (1.7-8.2); BASOPHILS % (AUTO) 0.4 % (0-2); EOSINOPHILS % (AUTO) 0.9 % (0-6); HEMATOCRIT 29.9 % (36.0-47.0); HEMOGLOBIN 9.8 g/dL (12.0-15.5); LYMPHOCYTES % (AUTO) 30.5 % (13-45); MEAN CORPUSCULAR HEMOGLOBIN 27.2 pg (27.0-33.4); MEAN CORPUSCULAR HGB CONC 32.9 g/dL (32.0-36.0); MEAN CORPUSCULAR VOLUME 83 fl (80-97); MONOCYTES % (AUTO) 5.3 % (3-13); PLATELET COUNT 224 10^3/uL (150-450); RED BLOOD COUNT 3.62 10^6/uL (3.72-5.28); RED CELL DISTRIBUTION WIDTH 17.3 % (11.5-14.0); SEGMENTED NEUTROPHILS % (AUTO) 62.9 % (42-78); TOTAL CELLS COUNTED % (AUTO) 100 %; WHITE BLOOD COUNT 10.5 10^3/uL (4.0-10.5)
[2018-10-16 06:58] LABS: ALANINE AMINOTRANSFERASE 15 U/L (9-52); ALBUMIN 2.6 g/dL (3.5-5.0); ALKALINE PHOSPHATASE 80 U/L (38-126); ANION GAP 6 (5-19); ASPARTATE AMINO TRANSFERASE 26 U/L (14-36); BILIRUBIN,DIRECT 0.2 mg/dL (0.0-0.4); BILIRUBIN,TOTAL 0.2 mg/dL (0.2-1.3); BLOOD UREA NITROGEN 20 mg/dL (7-20); CALCIUM 7.8 mg/dL (8.4-10.2); CARBON DIOXIDE 31 mmol/L (22-30); CHLORIDE 101 mmol/L (98-107); GLUCOSE 84 mg/dL (75-110); TOTAL PROTEIN 5.1 g/dL (6.3-8.2)
[2018-10-16 07:02] LABS: POTASSIUM 2.6 mmol/L (3.6-5.0)
[2018-10-16] MEDS: IPRATROPIUM/ALBUTEROL 0.5-2.5 MG/3 ML AMPUL NEB SCH ×2 (08:39→20:29)
--- NOTE | 2018-10-16 08:57 | Progress Note Acknowledgement ---
Progress Note Acknowledgement Progess Note Acknowledgement: I, the undersigned member of the medical staff with appropriate privileges and with supervisory authority over [Andreas Knott], a dependent practice allied health professional, acknowledge that I have reviewed the progress notes entered on this patient, and in my professional judgment believe that the assessment made and/or any care evidenced was appropriate
--- NOTE | 2018-10-16 09:05 | PDOC PROGRESS REPORT ---
Subjective Progress Note for:: 10/16/18 Subjective:: No complaints this a.m. Reason For Visit: UTI, SEPSIS, ARF Physical Exam Vital Signs: Temp Pulse Resp BP Pulse Ox 98.7 F 71 16 172/73 H 97 10/16/18 04:12 10/16/18 07:00 10/16/18 04:12 10/16/18 04:15 10/16/18 04:12 Intake & Output 10/15/18 10/16/18 10/17/18 06:59 06:59 06:59 Intake Total 516 2423 Output Total 2325 2800 Balance -1812 - Weight 77.8 kg 77.9 kg General appearance: PRESENT: no acute distress, well-developed, well-nourished Neck exam: PRESENT: other - Left internal jugular central line noted. ABSENT: carotid bruit, JVD, lymphadenopathy, thyromegaly Respiratory exam: PRESENT: clear to auscultation abraham. ABSENT: rales, rhonchi, wheezes Cardiovascular exam: PRESENT: RRR. ABSENT: diastolic murmur, rubs, systolic murmur Pulses: PRESENT: normal dorsalis pedis pul Vascular exam: PRESENT: normal capillary refill GI/Abdominal exam: PRESENT: normal bowel sounds, soft. ABSENT: distended, guarding, mass, organolmegaly, rebound, tenderness Extremities exam: PRESENT: full ROM, +1 edema. ABSENT: calf tenderness, clubbing, pedal edema Neurological exam: PRESENT: alert, awake, oriented to person, oriented to place, oriented to time, oriented to situation, CN II-XII grossly intact. ABSENT: motor sensory deficit Psychiatric exam: PRESENT: appropriate affect, normal mood. ABSENT: homicidal ideation, suicidal ideation Results Laboratory Results: 10/16/18 06:00 10/16/18 06:00 10/16/18 10/16/18 06:00 06:00 WBC 10.5 RBC 3.62 L Hgb 9.8 L Hct 29.9 L MCV 83 MCH 27.2 MCHC 32.9 RDW 17.3 H Plt Count 224 Seg Neutrophils % 62.9 Lymphocytes % 30.5 Monocytes % 5.3 Eosinophils % 0.9 Basophils % 0.4 Absolute Neutrophils 6.6 Absolute Lymphocytes 3.2 Absolute Monocytes 0.6 Absolute Eosinophils 0.1 Absolute Basophils 0.0 Sodium 137.7 Potassium 2.6 L* Chloride 101 Carbon Dioxide 31 H Anion Gap 6 BUN 20 Creatinine 0.98 Est GFR ( Amer) > 60 Est GFR (Non-Af Amer) 58 L Glucose 84 Calcium 7.8 L Magnesium 1.7 Total Bilirubin 0.2 AST 26 ALT 15 Alkaline Phosphatase 80 Total Protein 5.1 L Albumin 2.6 L 10/11/18 17:40 Troponin I < 0.012 Impressions: Abdomen/Pelvis CT 10/11/18 15:18 IMPRESSION: STABLE CHRONIC FINDINGS. AORTOILIAC ENDOGRAFT AND BILATERAL RENAL STENTS, LEFT ADRENAL MASS, CHRONIC ATROPHY OF THE LEFT KIDNEY. ALL UNCHANGED. NO ACUTE PROCESS IN THE ABDOMEN OR PELVIS. Chest X-Ray 10/13/18 06:00 IMPRESSION: STABLE APPEARANCE. NO SIGNIFICANT CHANGE. Acute Abdomen Series 10/14/18 00:00 IMPRESSION: 1. No acute cardiopulmonary disease. 2. New dilated loops of small bowel with air-fluid levels suggesting developing small bowel obstruction. Consider repeat CT of the abdomen and pelvis. KUB X-Ray 10/15/18 06:00 IMPRESSION: Mild small-bowel distention remains most prominent in a single loop near the midline. Overall there is less small-bowel distention when compared to yesterday. Assessment and Plan - Diagnosis (1) Sepsis Is this a current diagnosis for this admission?: Yes Plan: 10/16/2018-most likely secondary to UTI. Patient did show an E. coli susceptible to Cipro. At this time I have DC'd her IV antibiotic started on Cipro 500 g p.o. twice daily. (2) CKD (chronic kidney disease), stage III Is this a current diagnosis for this admission?: Yes Plan: Acute on chronic kidney disease secondary to a #1. IV fluid challenge. Avoid nephrotoxic meds and doses pharmacy dosing of medications ordered. 10/14/2018-BUN and creatinine continue to slowly improved. The patient is almost in the normal range. Will need to monitor fluid status especially considering the ileus. She was having loose stool. She may need IV fluid. 10/15/2018-serum creatinine in fact is normal and the BUN is close to normal. She is likely better than her baseline. Continue to monitor renal function with the current treatment plan. 10/16/2018-resolved at this time. We will continue to follow daily BMPs. (3) Ileus Is this a current diagnosis for this admission?: Yes Plan: 10/14/2018-the patient experienced increasing abdominal distention last night i nto this morning. X-ray shows dilated loops of bowel. She was stooling previously. She did want to try sips of liquids. I was informed by the nurse that she tried sips and vomited. She is now n.p.o. and I have ordered a nasogastric tube. I did discuss this with the nurse and he said that she was refusing the nasogastric tube earlier. Hopefully she will allow this to be placed as I think it will get her better faster. Physical therapy started to work with her today. They did sit her on the edge of the bed. Increased activity will also be helpful. Because she is n.p.o. I did start gentle normal saline. 10/15/2018-the nasogastric tube was effective last night. She could not wait till it was taken out this morning. I repeated a KUB study and that was improved. Nasogastric tube output decreased. Bowel sounds were positive. After the tube was removed he started a clear liquid diet and we will advance as tolerated. 10/16/2018-improved this a.m. Patient without NG tube. Patient taking clear liquids with no problems at this time. She does have good bowel sounds and has had 2 stools overnight. We will continue to follow (4) Chronic pain Qualifiers: Chronic pain type: chronic pain syndrome Qualified Code(s): G89.4 - Chronic pain syndrome Is this a current diagnosis for this admission?: Yes Plan: Complicated by opiate dependence. Narcotics limited by hypotension 10/14/2018-the patient has chronic pain. A lot of it is in her right hip. Unfo rtunately she has developed an ileus and that has increased abdominal pain associated with it. 10/15/2018-we are continuing her home medication regimen. I believe increased activity with physical therapy will help. 10/16/2018-continues to complain of low back and hip pain. This is chronic in nature we will continue home medications. Increase physical activity with physical therapy. - Time Time Spent with patient: 15-24 minutes - Inpatient Certification Based on my medical assessment, after consideration of the patient's comor bidities, presenting symptoms, or acuity I expect that the services needed warrant INPATIENT care.: Yes Medical Necessity: Other - Continue monitoring ileus for relapse
[2018-10-16] MEDS: CIPROFLOXACIN HCL 500 MG TABLET PO SCH (10:54)
[2018-10-16] MEDS: POTASSIUM CHLORIDE 20 MEQ PACKET PO SCH ×4 (10:54→18:15)
[2018-10-16] MEDS: FUROSEMIDE 20 MG TABLET PO SCH (11:00)
[2018-10-16] MEDS: PROMETHAZINE HCL INJ 25 MG/1 ML VIAL IV PRN ×2 (16:34→21:59)
[2018-10-16] MEDS: OLANZAPINE 5 MG TABLET PO SCH (21:52)
[2018-10-17] MEDS: OXYCODONE HCL IR 5 MG TABLET PO PRN ×3 (05:05→21:58)
[2018-10-17] MEDS: HEPARIN SOD (PORCINE) 5,000 UNIT/ML 1 ML VIAL SUBCUT SCH ×3 (05:05→23:10)
[2018-10-17 05:55] LABS: HEMATOCRIT 32.6 % (36.0-47.0); HEMOGLOBIN 10.6 g/dL (12.0-15.5); MEAN CORPUSCULAR HGB CONC 32.7 g/dL (32.0-36.0); MEAN CORPUSCULAR VOLUME 83 fl (80-97); PLATELET COUNT 239 10^3/uL (150-450); RED BLOOD COUNT 3.94 10^6/uL (3.72-5.28); RED CELL DISTRIBUTION WIDTH 17.1 % (11.5-14.0); WHITE BLOOD COUNT 9.7 10^3/uL (4.0-10.5)
[2018-10-17 06:20] LABS: ANION GAP 6 (5-19); BLOOD UREA NITROGEN 14 mg/dL (7-20); CALCIUM 8.2 mg/dL (8.4-10.2); CARBON DIOXIDE 30 mmol/L (22-30); CHLORIDE 100 mmol/L (98-107)
[2018-10-17 06:29] LABS: GLUCOSE 69 mg/dL (75-110)
[2018-10-17 06:38] LABS: POTASSIUM 3.8 mmol/L (3.6-5.0)
[2018-10-17] MEDS: IPRATROPIUM/ALBUTEROL 0.5-2.5 MG/3 ML AMPUL NEB SCH ×2 (08:55→20:45)
[2018-10-17] MEDS: FUROSEMIDE 20 MG TABLET PO SCH (09:46)
[2018-10-17] MEDS: CIPROFLOXACIN HCL 500 MG TABLET PO SCH (09:46)
[2018-10-17] MEDS: POTASSIUM CHLORIDE 20 MEQ PACKET PO SCH (09:46)
[2018-10-17] MEDS: PROMETHAZINE HCL INJ 25 MG/1 ML VIAL IV PRN ×3 (09:50→22:03)
--- NOTE | 2018-10-17 10:50 | PDOC PROGRESS REPORT ---
Subjective Progress Note for:: 10/17/18 Subjective:: No complaints this a.m. 10/17/2018-no complaints this a.m. Reason For Visit: UTI, SEPSIS, ARF Physical Exam Vital Signs: Temp Pulse Resp BP Pulse Ox 98.6 F 97 14 166/84 H 96 10/17/18 07:54 10/17/18 08:55 10/17/18 08:55 10/17/18 07:54 10/17/18 08:55 Intake & Output 10/16/18 10/17/18 10/18/18 06:59 06:59 06:59 Intake Total 2423 1604 Output Total 2800 2150 Balance -377 -546 Weight 77.9 kg 75.4 kg General appearance: PRESENT: no acute distress, well-developed, well-nourished Head exam: PRESENT: atraumatic, normocephalic Neck exam: PRESENT: other - Left internal jugular central line noted. ABSENT: carotid bruit, JVD, lymphadenopathy, thyromegaly Respiratory exam: PRESENT: clear to auscultation abraham. ABSENT: rales, rhonchi, wheezes Cardiovascular exam: PRESENT: RRR. ABSENT: diastolic murmur, rubs, systolic murmur Pulses: PRESENT: normal dorsalis pedis pul Vascular exam: PRESENT: normal capillary refill GI/Abdominal exam: PRESENT: ascites Rectal exam: PRESENT: deferred Extremities exam: PRESENT: full ROM. ABSENT: calf tenderness, clubbing, pedal edema Neurological exam: PRESENT: alert, awake, oriented to person, oriented to place, oriented to time, oriented to situation, CN II-XII grossly intact. ABSENT: motor sensory deficit Psychiatric exam: PRESENT: appropriate affect, normal mood. ABSENT: homicidal ideation, suicidal ideation Results Laboratory Results: 10/17/18 05:00 10/17/18 05:00 10/17/18 10/17/18 05:00 05:00 WBC 9.7 RBC 3.94 Hgb 10.6 L Hct 32.6 L MCV 83 MCH 27.0 MCHC 32.7 RDW 17.1 H Plt Count 239 Sodium 136.1 L Potassium 3.8 D Chloride 100 Carbon Dioxide 30 Anion Gap 6 BUN 14 Creatinine 0.81 Est GFR ( Amer) > 60 Est GFR (Non-Af Amer) > 60 Glucose 69 L Calcium 8.2 L 10/11/18 18:00 Blood Blood Culture - Final NO GROWTH IN 5 DAYS 10/11/18 16:08 Blood Blood Culture - Final NO GROWTH IN 5 DAYS 10/11/18 17:40 Troponin I < 0.012 Impressions: Abdomen/Pelvis CT 10/11/18 15:18 IMPRESSION: STABLE CHRONIC FINDINGS. AORTOILIAC ENDOGRAFT AND BILATERAL RENAL STENTS, LEFT ADRENAL MASS, CHRONIC ATROPHY OF THE LEFT KIDNEY. ALL UNCHANGED. NO ACUTE PROCESS IN THE ABDOMEN OR PELVIS. Chest X-Ray 10/13/18 06:00 IMPRESSION: STABLE APPEARANCE. NO SIGNIFICANT CHANGE. Acute Abdomen Series 10/14/18 00:00 IMPRESSION: 1. No acute cardiopulmonary disease. 2. New dilated loops of small bowel with air-fluid levels suggesting developing small bowel obstruction. Consider repeat CT of the abdomen and pelvis. KUB X-Ray 10/15/18 06:00 IMPRESSION: Mild small-bowel distention remains most prominent in a single loop near the midline. Overall there is less small-bowel distention when compared to yesterday. Assessment and Plan - Diagnosis (1) Sepsis Is this a current diagnosis for this admission?: Yes Plan: 10/16/2018-most likely secondary to UTI. Patient did show an E. coli susceptible to Cipro. At this time I have DC'd her IV antibiotic started on Cipro 500 g p.o. twice daily. 10/17/2018-patient continues on Cipro. Most likely discharge home in the a.m. Sepsis has resolved (2) CKD (chronic kidney disease), stage III Is this a current diagnosis for this admission?: Yes Plan: Acute on chronic kidney disease secondary to a #1. IV fluid challenge. Avoid nephrotoxic meds and doses pharmacy dosing of medications ordered. 10/14/2018-BUN and creatinine continue to slowly improved. The patient is almost in the normal range. Will need to monitor fluid status especially considering the ileus. She was having loose stool. She may need IV fluid. 10/15/2018-serum creatinine in fact is normal and the BUN is close to normal. She is likely better than her baseline. Continue to monitor renal function with the current treatment plan. 10/16/2018-resolved at this time. We will continue to follow daily BMPs. 10/17/2018-continues with resolution. Repeat BMP in a.m. Anticipate discharge home tomorrow. (3) Ileus Is this a current diagnosis for this admission?: Yes Plan: 10/14/2018-the patient experienced increasing abdominal distention last night into this morning. X-ray shows dilated loops of bowel. She was stooling previously. She did want to try sips of liquids. I was informed by the nurse that she tried sips and vomited. She is now n.p.o. and I have ordered a nasogastric tube. I did discuss this with the nurse and he said that she was refusing the nasogastric tube earlier. Hopefully she will allow this to be placed as I think it will get her better faster. Physical therapy started to work with her today. They did sit her on the edge of the bed. Increased acti vity will also be helpful. Because she is n.p.o. I did start gentle normal saline. 10/15/2018-the nasogastric tube was effective last night. She could not wait till it was taken out this morning. I repeated a KUB study and that was improved. Nasogastric tube output decreased. Bowel sounds were positive. After the tube was removed he started a clear liquid diet and we will advance as tolerated. 10/16/2018-improved this a.m. Patient without NG tube. Patient taking clear liquids with no problems at this time. She does have good bowel sounds and has had 2 stools overnight. We will continue to follow 10/17/2018-continues to improve. Patient taking clears at this time with no problem. Will advance to full liquid for lunch if patient does okay with this we will place on regular diet at dinner. (4) Chronic pain Qualifiers: Chronic pain type: chronic pain syndrome Qualified Code(s): G89.4 - Chronic pain syndrome Is this a current diagnosis for this admission?: Yes Plan: Complicated by opiate dependence. Narcotics limited by hypotension 10/14/2018-the patient has chronic pain. A lot of it is in her right hip. Unfortunately she has developed an ileus and that has increased abdominal pain associated with it. 10/15/2018-we are continuing her home medication regimen. I believe increased activity with physical therapy will help. 10/16/2018-continues to complain of low back and hip pain. This is chronic in nature we will continue home medications. Increase physical activity with physical therapy. 10/17/2018-stable. Continue chronic pain management. - Time Time Spent with patient: 15-24 minutes - Inpatient Certification Based on my medical assessment, after consideration of the patient's comorbidities, presenting symptoms, or acuity I expect that the services needed warrant INPATIENT care.: Yes I certify that my determination is in accordance with my understanding of Medicare's requirements for reasonable and necessary INPATIENT services [42 CFR 412.3e].: Yes Medical Necessity: Other - Advance diet, monitor ileus,
[2018-10-17] MEDS: OLANZAPINE 5 MG TABLET PO SCH (21:58)
[2018-10-18] MEDS: OXYCODONE HCL IR 5 MG TABLET PO PRN ×2 (04:48→14:43)
[2018-10-18] MEDS: PROMETHAZINE HCL INJ 25 MG/1 ML VIAL IV PRN (04:48)
[2018-10-18 05:28] LABS: HEMATOCRIT 33.6 % (36.0-47.0); HEMOGLOBIN 11.1 g/dL (12.0-15.5); MEAN CORPUSCULAR HEMOGLOBIN 27.3 pg (27.0-33.4); MEAN CORPUSCULAR HGB CONC 33.1 g/dL (32.0-36.0); MEAN CORPUSCULAR VOLUME 82 fl (80-97); PLATELET COUNT 256 10^3/uL (150-450); RED BLOOD COUNT 4.08 10^6/uL (3.72-5.28); RED CELL DISTRIBUTION WIDTH 16.8 % (11.5-14.0)
[2018-10-18 05:38] LABS: BLOOD UREA NITROGEN 11 mg/dL (7-20); CALCIUM 8.4 mg/dL (8.4-10.2); CARBON DIOXIDE 33 mmol/L (22-30); CHLORIDE 99 mmol/L (98-107); GLUCOSE 82 mg/dL (75-110); POTASSIUM 3.7 mmol/L (3.6-5.0)
[2018-10-18 05:46] LABS: ANION GAP 4 (5-19)
[2018-10-18] MEDS: HEPARIN SOD (PORCINE) 5,000 UNIT/ML 1 ML VIAL SUBCUT SCH ×2 (07:48→13:03)
[2018-10-18] MEDS: IPRATROPIUM/ALBUTEROL 0.5-2.5 MG/3 ML AMPUL NEB SCH (08:59)
[2018-10-18] MEDS: CIPROFLOXACIN HCL 500 MG TABLET PO SCH (10:05)
[2018-10-18] MEDS: FUROSEMIDE 20 MG TABLET PO SCH (10:05)
[2018-10-18] MEDS: POTASSIUM CHLORIDE 20 MEQ PACKET PO SCH (10:05)
[2018-10-18] MEDS ORDERED: AMLODIPINE BESYLATE 5 MG TABLET PO SCH (10:30)
--- NOTE | 2018-10-18 10:41 | PDOC DISCHARGE SUMMARY ---
General - Admit/Disc Date/PCP Admission Date/Primary Care Provider: 10/11/18 20:21 LETA GRIJALVA DO Discharge Date: 10/18/18 - Discharge Diagnosis (1) Sepsis Is this a current diagnosis for this admission?: Yes (2) CKD (chronic kidney disease), stage III Is this a current diagnosis for this admission?: Yes (3) Ileus Is this a current diagnosis for this admission?: Yes (4) Chronic pain Is this a current diagnosis for this admission?: Yes - Additional Information Resuscitation Status: Full Code Discharge Diet: As Tolerated Discharge Activity: Activity As Tolerated Prescriptions: Amlodipine Besylate [Norvasc 5 mg Tablet] 5 mg PO DAILY #30 tablet Ciprofloxacin HCl [Cipro 500 mg Tablet] 500 mg PO DAILY #10 tablet Home Medications: Oxycodone HCl/Acetaminophen [Endocet 10-325 mg Tablet] 1 tab PO Q8HP PRN 07/16/18 Amlodipine Besylate [Norvasc 5 mg Tablet] 5 mg PO DAILY #30 tablet 10/18/18 Ciprofloxacin HCl [Cipro 500 mg Tablet] 500 mg PO DAILY #10 tablet 10/18/18 History of Present Illness History of Present Illness: KAREN GOMEZ is a 58 year old female Hospital Course Hospital Course: Ms. 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 She presented with a 10-day history abdominal discomfort with nausea and diarrhea. Patient was found to have severe sepsis and metabolic acidosis. Patient was hypotensive leukocytotic and had pyuria and acute on chronic renal failure. CT abdomen pelvis was negative for pyelonephritis abscess or hydronephrosis. Patient was admitted and given empiric antibiotics and revealed a Klebsiella pneumoniae in her urine and so sensitive to Cipro. Patient was persistently hypotensive on arrival and required central line placement 3 normal saline boluses with 1000 mL's each and Levophed drip. Patient was placed in the ICU and subsequently transferred to [facility] after she improved. At this time patient improved significantly return home with Cipro p.o. I will give patient Cipro 500 g p.o. twice daily x5 more days. Patient will follow-up with Dr. Grijalva on an outpatient basis patient will return to ER if she has any further comp concerns or complaints. On discharge home patient will resume all home meds and treatments. Physical Exam Vital Signs: Temp Pulse Resp BP Pulse Ox 99.5 F 98 16 166/76 H 97 10/18/18 03:56 10/18/18 08:59 10/18/18 08:59 10/18/18 03:56 10/18/18 08:59 Intake & Output 10/17/18 10/18/18 10/19/18 06:59 06:59 06:59 Intake Total 1604 1060 Output Total 2150 1300 Balance -546 -240 Weight 75.4 kg 74 kg General appearance: PRESENT: no acute distress Neck exam: ABSENT: carotid bruit, JVD, lymphadenopathy, thyromegaly Respiratory exam: PRESENT: clear to auscultation abraham. ABSENT: rales, rhonchi, wheezes Cardiovascular exam: PRESENT: RRR. ABSENT: diastolic murmur, rubs, systolic murmur Pulses: PRESENT: normal dorsalis pedis pul Vascular exam: PRESENT: normal capillary refill GI/Abdominal exam: PRESENT: normal bowel sounds, soft. ABSENT: distended, guarding, mass, organolmegaly, rebound, tenderness Extremities exam: PRESENT: full ROM. ABSENT: calf tenderness, clubbing, pedal edema Neurological exam: PRESENT: alert, awake, oriented to person, oriented to place, oriented to time, oriented to situation, CN II-XII grossly intact. ABSENT: motor sensory deficit Psychiatric exam: PRESENT: appropriate affect, normal mood. ABSENT: homicidal ideation, suicidal ideation Skin exam: PRESENT: dry, intact, warm. ABSENT: cyanosis, rash Results Laboratory Results: 10/18/18 04:50 10/18/18 04:50 10/18/18 10/18/18 04:50 04:50 WBC 10.0 RBC 4.08 Hgb 11.1 L Hct 33.6 L MCV 82 MCH 27.3 MCHC 33.1 RDW 16.8 H Plt Count 256 Sodium 136.4 L Potassium 3.7 Chloride 99 Carbon Dioxide 33 H Anion Gap 4 L BUN 11 Creatinine 0.92 Est GFR ( Amer) > 60 Est GFR (Non-Af Amer) > 60 Glucose 82 Calcium 8.4 10/11/18 17:40 Troponin I < 0.012 Impressions: Abdomen/Pelvis CT 10/11/18 15:18 IMPRESSION: STABLE CHRONIC FINDINGS. AORTOILIAC ENDOGRAFT AND BILATERAL RENAL STENTS, LEFT ADRENAL MASS, CHRONIC ATROPHY OF THE LEFT KIDNEY. ALL UNCHANGED. NO ACUTE PROCESS IN THE ABDOMEN OR PELVIS. Chest X-Ray 10/13/18 06:00 IMPRESSION: STABLE APPEARANCE. NO SIGNIFICANT CHANGE. Acute Abdomen Series 10/14/18 00:00 IMPRESSION: 1. No acute cardiopulmonary disease. 2. New dilated loops of small bowel with air-fluid levels suggesting developing small bowel obstruction. Consider repeat CT of the abdomen and pelvis. KUB X-Ray 10/15/18 06:00 IMPRESSION: Mild small-bowel distention remains most prominent in a single loop near the midline. Overall there is less small-bowel distention when compared to yesterday. Qualifiers - * PATIENT BEING DISCHARGED WITH ANY OF THE FOLLOWING DIAGNOSIS: No Acute Heart Failure - Is this a Heart Failure Patient?: No Plan Time Spent: Greater than 30 Minutes
[2018-10-18 13:35] VITALS: BP 143/67
== END 2018-10-18 16:07 | disposition home health service (06) | DRG 871 ==
LOC: ER 14:10 → EH 20:21 → ICU 10-12 12:20 → 3S 10-14 19:50
PROVIDERS: ADMIT Internal Medicine; ATTEND Internal Medicine
PROC: 02HV33Z Insertion of Infusion Device into Superior Vena Cava, Percutaneous Approach (ICD-10-PCS; principal; 2018-10-12)
DX: A41.51 Sepsis due to Escherichia coli [E. coli] (principal); L89.154 Pressure ulcer of sacral region, stage 4; N39.0 Urinary tract infection, site not specified; N17.9 Acute kidney failure, unspecified; E87.2 Acidosis; F11.20 Opioid dependence, uncomplicated; K56.7 Ileus, unspecified; R65.20 Severe sepsis without septic shock; B96.20 Unspecified Escherichia coli [E. coli] as the cause of diseases classified elsewhere; E86.0 Dehydration; I12.9 Hypertensive chronic kidney disease with stage 1 through stage 4 chronic kidney disease, or unspecified chronic kidney disease; N18.3 Chronic kidney disease, stage 3 (moderate); J44.9 Chronic obstructive pulmonary disease, unspecified; G89.4 Chronic pain syndrome; E78.5 Hyperlipidemia, unspecified; R31.9 Hematuria, unspecified; M19.90 Unspecified osteoarthritis, unspecified site; G47.33 Obstructive sleep apnea (adult) (pediatric); F32.9 Major depressive disorder, single episode, unspecified; F17.210 Nicotine dependence, cigarettes, uncomplicated; Z71.6 Tobacco abuse counseling; Z86.73 Personal history of transient ischemic attack (TIA), and cerebral infarction without residual deficits
CPT/HCPCS: 36415; 36600; 71045; 74018; 74022; 74176; 80048; 80053; 80307; 81001; 82803; 82962; 83605; 83690; 83735; 84484; 85025; 85027; 85610; 87040; 87086; 87088; 87186; 93005; 93010; 94660; 94667; 94668; 94799; 96361; 96365; 96375; 96376; 99291; 99406; C1751; J0690; J0696; J0743; J0744; J1642; J1644; J1720; J1940; J2370; J2405; J2550; J3010; J3475; J3480; J3490; J7030; J7050; J7060; J7620

== ENCOUNTER 2018-12-26 15:08 | Inpatient (IN) | payer MEDICAID ==
[2018-12-26] MEDS: NORMAL SALINE 1000 ML 1,000 ML IV PRN ×2 (15:18→15:45)
[2018-12-26 15:52] LABS: HEMATOCRIT 36.3 % (36.0-47.0); HEMOGLOBIN 11.5 g/dL (12.0-15.5); MEAN CORPUSCULAR HEMOGLOBIN 27.2 pg (27.0-33.4); MEAN CORPUSCULAR HGB CONC 31.6 g/dL (32.0-36.0); MEAN CORPUSCULAR VOLUME 86 fl (80-97); PLATELET COUNT 245 10^3/uL (150-450); RED BLOOD COUNT 4.21 10^6/uL (3.72-5.28); RED CELL DISTRIBUTION WIDTH 17.2 % (11.5-14.0); WHITE BLOOD COUNT 14.7 10^3/uL (4.0-10.5)
[2018-12-26 16:07] LABS: ALBUMIN 3.7 g/dL (3.5-5.0); ALKALINE PHOSPHATASE 103 U/L (38-126); ANION GAP 15 (5-19); ASPARTATE AMINO TRANSFERASE 18 U/L (14-36); BILIRUBIN,DIRECT 0.4 mg/dL (0.0-0.4); BILIRUBIN,TOTAL 0.5 mg/dL (0.2-1.3); BLOOD UREA NITROGEN 41 mg/dL (7-20); CALCIUM 9.5 mg/dL (8.4-10.2); CARBON DIOXIDE 18 mmol/L (22-30); CHLORIDE 102 mmol/L (98-107); GLUCOSE 96 mg/dL (75-110); POTASSIUM 4.4 mmol/L (3.6-5.0); TOTAL PROTEIN 6.7 g/dL (6.3-8.2)
[2018-12-26 16:22] LABS: ABSOLUTE LYMPHOCYTES# (MANUAL) 2.2 10^3/uL (0.5-4.7); ABSOLUTE MONOCYTES # (MANUAL) 0.3 10^3/uL (0.1-1.4); BAND NEUTROPHILS % (MANUAL) 1 % (3-5); BASOPHILS % (MANUAL) 0 % (0-2); EOSINOPHILS % (MANUAL) 0 % (0-6); LYMPHOCYTES % (MANUAL) 15 % (13-45); MONOCYTES % (MANUAL) 2 % (3-13); SEGMENTED NEUTROPHILS % (MAN) 82 % (42-78); TOTAL CELLS COUNTED 100
[2018-12-26 16:24] LABS: PLATELET COMMENT ADEQUATE; TOXIC VACUOLATION PRESENT
[2018-12-26 16:25] LABS: RBC MORPHOLOGY COMMENT NORMO-CYTIC/CHROMIC
[2018-12-26] MEDS ORDERED: PIPERACILLIN/TAZOBACTAM 3.375 GM VIAL IV ONE (16:51)
--- NOTE | 2018-12-26 17:01 | RADIOLOGY REPORT (SQ) ---
EXAM DESCRIPTION: CHEST SINGLE VIEW COMPLETED DATE/TIME: 12/26/2018 4:54 pm REASON FOR STUDY: hypotension COMPARISON: 10/13/2018 NUMBER OF VIEWS: One view. TECHNIQUE: Single frontal radiographic view of the chest acquired. LIMITATIONS: None. FINDINGS: LUNGS AND PLEURA: Minimal linear atelectasis in the left base. Lung saez are otherwise clear. No pneumothorax. MEDIASTINUM AND HILAR STRUCTURES: No masses. Contour normal. HEART AND VASCULAR STRUCTURES: Heart normal in size. Normal vasculature. BONES: No acute findings. HARDWARE: None in the chest. OTHER: No other significant finding. IMPRESSION: No acute findings in the chest. TECHNICAL DOCUMENTATION: JOB ID: [id number] [employer]- All Rights Reserved Reading location - IP/workstation name: [email or web address]
[2018-12-26] MEDS ORDERED: NORMAL SALINE 1000 ML 1,000 ML IV ONE ×2 (17:07→19:14)
--- NOTE | 2018-12-26 17:18 | ER Document Report ---
ED General - General Chief Complaint: Low Blood Pressure Stated Complaint: BLOOD PRESSURE PROBLEMS Time Seen by Provider: 12/26/18 15:44 Primary Care Provider: LETA PRIEST DO [Primary Care Provider] - Follow up as needed TRAVEL OUTSIDE OF THE [place] IN LAST 30 DAYS: No - HPI Context: This is a 58-year-old female who presents with a complaint of low blood pressure and diarrhea. Patient states she had diarrhea for the past 2 months. She denies any recent antibiotic use. She denies any recent hospitalization. She has had some cramping abdominal discomfort. She denies any fever or chills. Patient states that she took her lisinopril today inside it feels like her blood pressure was dropping. She checked it and it was low. So she came to the emergency department. She denies any chest pain. She describes her symptoms as moderate. There are no obvious aggravating or relieving factors. Patient has history of chronic low back pain secondary to "a broken tailbone." She also admits to being depressed and that is why she has not been eating much lately. She denies suicidal homicidal ideation. - Related Data Allergies/Adverse Reactions: No Known Allergies Allergy (Verified 05/15/18 10:38) Past Medical History - Social History Smoking Status: Unknown if Ever Smoked Family History: COPD, Hypertension Patient has suicidal ideation: No Patient has homicidal ideation: No - Past Medical History Cardiac Medical History: Reports: Hx Hypercholesterolemia, Hx Hypertension Pulmonary Medical History: Reports: Hx Bronchitis, Hx COPD, Hx Pneumonia Renal/ Medical History: Denies: Hx Peritoneal Dialysis Malignancy Medical History: Reports: Hx Breast Cancer GI Medical History: Reports: Hx Diverticulitis. Denies: Hx Crohn's Disease, Hx Ulcerative Colitis Musculoskeletal Medical History: Reports Hx Arthritis Skin Medical History: Denies Hx Eczema, Denies Hx Psoriasis Psychiatric Medical History: Reports: Hx Depression Traumatic Medical History: Denies: Hx Gunshot Wound, Hx Pneumothorax Infectious Medical History: Reports: Hx HIV Past Surgical History: Reports: Hx Cholecystectomy, Hx Hysterectomy, Hx Tubal Ligation - Immunizations Hx Diphtheria, Pertussis, Tetanus Vaccination: Yes Hx Pneumococcal Vaccination: 01/29/15 Review of Systems - Review of Systems Constitutional: denies: Fever Cardiovascular: denies: Chest pain Respiratory: denies: Cough, Short of breath Gastrointestinal: Abdominal pain, Diarrhea. denies: Nausea, Constipation Genitourinary: denies: Burning, Dysuria Neurological/Psychological: Weakness. denies: Headaches -: Yes All other systems reviewed and negative Physical Exam - Vital signs Vitals: Temp 98.6 F 12/26/18 15:30 - General General appearance: Appears well, Alert - Respiratory Respiratory status: No respiratory distress Chest status: Nontender Breath sounds: Normal Chest palpation: Normal - Cardiovascular Rhythm: Regular Heart sounds: Normal auscultation Murmur: No - Abdominal Inspection: Normal Distension: No distension Bowel sounds: Normal Tenderness: Tender - There is slight suprapubic and left lower quadrant tenderne ss. No guarding or rebound. Organomegaly: No organomegaly - Back Back: Normal, Nontender - Neurological Neuro grossly intact: Yes Cognition: Normal Orientation: AAOx4 [place] Coma Scale Eye Opening: Spontaneous [place] Coma Scale Verbal: Oriented [place] Coma Scale Motor: Obeys Commands [place] Coma Scale Total: 15 Speech: Normal Motor strength normal: LUE, RUE, LLE, RLE Sensory: Normal - Psychological Associated symptoms: Normal affect, Normal mood - Skin Skin Temperature: Warm Skin Moisture: Dry Skin Color: Normal Course - Re-evaluation Re-evalutation: 12/26/18 17:17 Differential diagnosis includes dehydration from chronic diarrhea versus electrolyte abnormality versus sepsis versus hypotension secondary to medication use versus colitis. Will get a lactate given hypotension. Will aggressively hydrate patient. We will also get a CT scan. EKG shows normal sinus rhythm at 96 bpm. Normal axis. Normal intervals. No acute injury pattern. 12/26/18 17:18 Patient reevaluated. Patient feels better. Blood pressure improved with IV fluids. She still hypotensive but she is not tachycardic. Lactate is slightly elevated at 3.1. Empiric antibiotic started for suspected intra-abdominal source of infection. 12/26/18 17:30 Patient reevaluated. Patient states he feels better. Blood pressure improved to 105/91 with IV fluids. 12/26/18 19:16 Patient reevaluated. Attempted to place a right IJ central line. Unfortunately, line was placed arterially as patient moved during the procedure and the artery was very close to the vein on ultrasound. I removed the line. No complications after removal. Patient's blood pressure actually is better. At 108 systolic. Patient's care discussed with the memorial adviser ( Dr. Rosales). She will admit the patient. She recommends no further attempted central line placement at this time since blood pressure has improved. If patient becomes hypotensive again and requires central line, she will put another line. 12/26/18 19:18 We will check for C. difficile. We will empirically treat her with vancomycin orally. 12/26/18 19:33 Patient reevaluated. No neck hematoma. Patient's blood pressure is back to 80 systolic. Map is 67. Patient states she feels fine. She states she wants to eat. She is not tachycardic. However, I will start her on low-dose dopamine, renal dose dopamine to improve renal perfusion. We will give patient diet. 12/26/18 19:37 I explained complications with central line placement with patient and family. They understand. Family would like patient to be evaluated for depression. I told him we will address that while in the hospital. Will need to take care of acute medical problems first. He understands. - Vital Signs Vital signs: Temp Pulse Resp BP Pulse Ox 98.6 F 15 80/47 L 98 12/26/18 15:30 12/26/18 19:29 12/26/18 19:28 12/26/18 19:29 - Laboratory Result Diagrams: 12/26/18 15:20 12/26/18 15:20 Laboratory results interpreted by me: 12/26/18 12/26/18 12/26/18 15:20 15:20 16:05 WBC 14.7 H Hgb 11.5 L MCHC 31.6 L RDW 17.2 H Seg Neuts % (Manual) 82 H Band Neutrophils % 1 L Monocytes % (Manual) 2 L Abs Neuts (Manual) 12.2 H Sodium 134.5 L Carbon Dioxide 18 L BUN 41 H Creatinine 3.20 H Est GFR ( Amer) 18 L Est GFR (MDRD) Non-Af 15 L Lactic Acid 3.1 H Urine Ketones Ur Leukocyte Esterase 12/26/18 17:37 WBC Hgb MCHC RDW Seg Neuts % (Manual) Band Neutrophils % Monocytes % (Manual) Abs Neuts (Manual) Sodium Carbon Dioxide BUN Creatinine Est GFR ( Amer) Est GFR (MDRD) Non-Af Lactic Acid Urine Ketones TRACE H Ur Leukocyte Esterase TRACE H Procedures - Central Line Right Internal jugular Consent obtained: Yes Central line pre-insertion: Sterile PPE donned, Chloraprep applied, Sterile drapes applied Central line lumen type: Triple Anesthetic type: 1% Lidocaine Ultrasound guided: Yes Line secured with sutures: Yes Central line post-insertion: Blood return from lumens, Biopatch applied, Sutured, Other - Patient moved as he was advancing the needle. Blood return looked red but it was not pulsatile. So I continued with the procedure. Chest x-ray reviewed. Chest x-ray shows arterial line placement. Central line removed. No hematoma at the site. Patient is doing well. Complications: Yes - arterial line placement. Critical Care Note - Critical Care Note Total time excluding time spent on procedures (mins): 90 Comments: Critical care for management of sepsis. Discharge - Discharge Clinical Impression: SEB (acute kidney injury), Gastroenteritis Sepsis Qualifiers: Sepsis type: sepsis due to unspecified organism Sepsis acute organ dysfunction status: unspecified Qualified Code(s): A41.9 - Sepsis, unspecified organism Condition: Critical Disposition: ADMITTED INPATIENT Admitting Provider: Integrity Manager - Dr. Rosales Unit Admitted: ICU Referrals: LETA PRIEST DO [Primary Care Provider] - Follow up as needed
--- NOTE | 2018-12-26 17:22 | RADIOLOGY REPORT (SQ) ---
EXAM DESCRIPTION: CT ABD/PELVIS NO ORAL OR IV COMPLETED DATE/TIME: 12/26/2018 5:00 pm REASON FOR STUDY: abd pain, diarrhea, hypotension ? colitis vs COMPARISON: CT of the abdomen and pelvis without contrast from 10/11/2018. TECHNIQUE: CT scan of the abdomen and pelvis performed without intravenous or oral contrast. Images reviewed with lung, soft tissue, and bone windows. Reconstructed coronal and sagittal MPR images revi ewed. All images stored on PACS. All CT scanners at this facility use dose modulation, iterative reconstruction, and/or weight based d osing when appropriate to reduce radiation dose to as low as reasonably achievable (ALARA). [facility]: Dose Right [facility]: CareDose [facility]: Dose Right [facility]: Teradose 4D [facility]: Smart [employer] RADIATION DOSE: CT Rad equipment meets quality standard of care and radiation dose reduction techniq ues were employed. CTDIvol: 7.3 mGy. DLP: 398 mGy-cm.mGy. LIMITATIONS: None. FINDINGS: LOWER CHEST: Left basilar atelectasis. There is no consolidation or pleural effusion. No cardiomegaly or pericardial effusion. There is [id number] atherosclerotic calcification of the coronary arteries. NON-CONTRASTED LIVER, SPLEEN, ADRENALS: Evaluation is limited due to the absence of intravenous contr ast. The liver morphology is non cirrhotic. The spleen is normal in size. The 3.5 x 3.8 cm left ad renal nodule is stable. PANCREAS: No acute abnormality of the pancreas. GALLBLADDER: The gallbladder is surgically absent. RIGHT KIDNEY AND URETER: Evaluation is limited due to the absence of intravenous contrast. There is no hydronephrosis, nephrolithiasis, hydroureter or ureterolithiasis. LEFT KIDNEY AND URETER: Evaluation is limited due to the absence of intravenous contrast. Unchanged renal atrophy and asymmetric stranding of the perirenal fat. There is no hydronephrosis, nephrolithi asis, hydroureter or ureterolithiasis. AORTA AND RETROPERITONEUM: Status post endovascular repair of an abdominal aortic aneurysm ; the diam eter of the excluded aneurysmal sac is unchanged. There is no enlarged retroperitoneal adenopathy. BOWEL AND PERITONEAL CAVITY: There is anterior interposition of the bowel to the liver. The colon is filled with fluid ; there is no associated bowel wall thickening or pericolic stranding. The stran ding of the mesenteric fat and cluster of lymph nodes are around the branches of the SMA is unchanged from 10/11/2018 APPENDIX: Normal. PELVIS, BLADDER, AND ABDOMINAL WALL:The uterus is normal in size. The appearance of the left ovary i s unchanged from 10/11/2018. The urinary bladder is distended and normal in appearance. There is no pelvic adenopathy or free fluid. BONES: No findings. OTHER: No other finding. IMPRESSION: 1. The colon is filled with fluid consistent with history of diarrhea. There is no asso ciated bowel wall thickening or pericolonic stranding. 2. Stable left adrenal nodule. 3. Status post endovascular repair of an abdominal aortic aneurysm; the diameter of the excluded ane urysm sac is unchanged from 10/11/2018. 4. Other findings as detailed above. COMMENT: Quality ID # [id number]: Final reports with documentation of one or more dose reduction techniques (e.g., Automated exposure control, adjustment of the mA and/or kV according to patient size, use of iterative reconstruction technique) TECHNICAL DOCUMENTATION: JOB ID: [id number] [employer]- All Rights Reserved Reading location - IP/workstation name: [email or web address]
[2018-12-26 17:53] LABS: APPEARANCE,URINE CLEAR; BILIRUBIN,URINE NEGATIVE (NEGATIVE); COLOR,URINE AMBER; GLUCOSE, URINE NEGATIVE (NEGATIVE); KETONES,URINE TRACE mg/dL (NEGATIVE); LEUKOCYTE ESTERASE,URINE TRACE (NEGATIVE); NITRITE,URINE NEGATIVE (NEGATIVE); PROTEIN,URINE NEGATIVE (NEGATIVE); URINE SPECIFIC GRAVITY 1.018; UROBILINOGEN,URINE NEGATIVE mg/dL (<2.0)
--- NOTE | 2018-12-26 19:04 | RADIOLOGY REPORT (SQ) ---
EXAM DESCRIPTION: CHEST SINGLE VIEW COMPLETED DATE/TIME: 12/26/2018 6:48 pm REASON FOR STUDY: central line placement COMPARISON: AP view of the chest from 12/26/2018. EXAM PARAMETERS: NUMBER OF VIEWS: One view. TECHNIQUE: Single frontal radiographic view of the chest acquired. RADIATION DOSE: NA LIMITATIONS: None. FINDINGS: LUNGS AND PLEURA: The right lateral costophrenic sulcus is blunted. There is no consolida tion or pneumothorax. MEDIASTINUM AND HILAR STRUCTURES: No mediastinal hilar contour abnormality. HEART AND VASCULAR STRUCTURES: The cardiac silhouette and pulmonary vasculature are within normal jacinto its. BONES: No acute findings. HARDWARE: The right-sided central venous catheter crosses the midline based on its course there is co ncern that it is intra-arterial rather than intravenous. OTHER: No other finding. IMPRESSION: The right-sided central venous catheter crosses the midline and based on its course ther e is concern that it is intra-arterial rather than intravenous. COMMENT: This report was called to BESS SHEFFIELD MD at18:55 on 12/26/2018. RECOMMENDATIONS: This report was called to BESS SHEFFIELD MD at18:53 on 12/26/2018. TECHNICAL DOCUMENTATION: JOB ID: [id number] [employer]- All Rights Reserved Reading location - IP/workstation name: [email or web address]
[2018-12-26] MEDS ORDERED: VANCOMYCIN HCL INJ 500 MG VIAL PO ONE (19:13)
[2018-12-26] MEDS ORDERED: DOPAMINE HCL/DEXTROSE 5%-WATER 800 MG/250 ML RTUINJ IV PRN (19:29)
[2018-12-26] MEDS ORDERED: RINGERS SOLUTION,LACTATED 1,000 ML IV PRN ×3 (19:43→19:50)
--- NOTE | 2018-12-26 19:53 | EKG REPORT ---
SEVERITY:- NORMAL ECG - SINUS RHYTHM : Confirmed by: Chasity Welch MD 26-Dec-2018 19:53:11
--- NOTE | 2018-12-26 20:02 | Progress Note ---
Provider Note Provider Note: Rn Digestive Note: Pt is a 58 yo woman with a h/oHTN, COPD, AAA repair, HIV, CKD III, CVA who has had diarrhea for the past several months. She presented to the ED and was found to be hypotensive with an SBP in the 80s. She was given several liters of IVF and given a dose of broad spectrum ATBX. She has been started on dopamine. Vitals reviewed Labs/Imaging studies/EKG reviewed Remote chart review Assessment: Critically ill 58 yo woman with septic shock, volume depletion, chronic diarrhea, HIV, SEB, CKD Plan: 1. Respiratory: stable on nasal cannula 2. CV: hypotension due to volume depletion from diarrhea. Continue to aggressively hydrate with IVF. Pt started on dopamine in the ED. Will wean to off as tolerated 3. ID: septic shock, diarrhea, HIV. c.diff pending. stool studies pending. Empiric therapy with levaquin, flagyl, and po vanc 4. Renal:SEB, CKD. Will continue to hydrate with IVF. Insert bonds, renally dose meds 5. Prophylaxis: sq heparin 6. Supportive care 7. Full H&P to follow
[2018-12-26] MEDS: METRONIDAZOLE 500 MG/NS RTU 500 MG/100 ML RTUPB IV SCH (20:42)
[2018-12-26] MEDS: HEPARIN SOD (PORCINE) 5,000 UNIT/ML 1 ML VIAL SUBCUT SCH (22:23)
[2018-12-26] MEDS: LEVOFLOXACIN 750 MG/D5W RTU 750 MG/150 ML RTUPB IV SCH (22:23)
[2018-12-26] MEDS ORDERED: DOPAMINE HCL 800 MG/D5W 250 ML IV PRN (22:43)
[2018-12-27] MEDS: VANCOMYCIN HCL INJ 500 MG VIAL PO SCH ×2 (00:42→04:32)
[2018-12-27] MEDS: RINGERS SOLUTION,LACTATED 1,000 ML IV PRN ×4 (00:43→19:03)
[2018-12-27] MEDS: METRONIDAZOLE 500 MG/NS RTU 500 MG/100 ML RTUPB IV SCH ×4 (02:33→21:31)
[2018-12-27 03:10] LABS: C DIFFICILE GDH NEGATIVE (NEGATIVE)
[2018-12-27 04:21] LABS: HEMATOCRIT 33.9 % (36.0-47.0); HEMOGLOBIN 10.8 g/dL (12.0-15.5); MEAN CORPUSCULAR HEMOGLOBIN 26.5 pg (27.0-33.4); MEAN CORPUSCULAR HGB CONC 31.8 g/dL (32.0-36.0); MEAN CORPUSCULAR VOLUME 83 fl (80-97); PLATELET COUNT 234 10^3/uL (150-450); RED BLOOD COUNT 4.07 10^6/uL (3.72-5.28); RED CELL DISTRIBUTION WIDTH 16.9 % (11.5-14.0); WHITE BLOOD COUNT 12.8 10^3/uL (4.0-10.5)
[2018-12-27 04:48] LABS: ANION GAP 11 (5-19); BLOOD UREA NITROGEN 31 mg/dL (7-20); CALCIUM 9.1 mg/dL (8.4-10.2); CARBON DIOXIDE 20 mmol/L (22-30); CHLORIDE 109 mmol/L (98-107); GLUCOSE 109 mg/dL (75-110); POTASSIUM 3.9 mmol/L (3.6-5.0)
[2018-12-27] MEDS: HEPARIN SOD (PORCINE) 5,000 UNIT/ML 1 ML VIAL SUBCUT SCH ×3 (06:19→21:31)
[2018-12-27] MEDS ORDERED: DIPHENOXYLATE HCL/ATROP SULF 2.5-0.025 MG TABLET PO PRN (07:25)
[2018-12-27] MEDS ORDERED: RINGERS SOLUTION,LACTATED 1,000 ML IV PRN ×2 (07:28→07:29)
[2018-12-27] MEDS: MAGNESIUM SULFATE/D5W 1 GM/100 ML RTUPB IV SCH ×2 (08:20→10:02)
--- NOTE | 2018-12-27 09:03 | CRITICAL CARE ADMISSION REPORT ---
HPI Date:: 12/27/18 Reason for ICU Reason:: septic shock, hypotension, SEB HPI: Pt is a 58 yo woman with a h/oHTN, COPD, AAA repair, HIV, CKD III, CVA who has had diarrhea for the past several months. She presented to the ED and was found to be hypotensive with an SBP in the 80s. She was given several liters of IVF and given a dose of broad spectrum ATBX. She was started on dopamine in the ED. Today her dopamine has been weaned to off. - Diagnosis/Plan (1) SEB (acute kidney injury) Is this a current diagnosis for this admission?: Yes (2) CKD (chronic kidney disease), stage III Is this a current diagnosis for this admission?: Yes (3) Septic shock Is this a current diagnosis for this admission?: Yes (4) HIV (human immunodeficiency virus infection) Qualifiers: HIV symptom status: asymptomatic Qualified Code(s): Z21 - Asymptomatic human immunodeficiency virus [HIV] infection status Is this a current diagnosis for this admission?: Yes (5) Diarrhea Is this a current diagnosis for this admission?: Yes Past Medical History Cardiac Medical History: Reports: Hyperlipidema, Hypertension Pulmonary Medical History: Reports: Bronchitis, Chronic Obstructive Pulmonary Disease (COPD), Pneumonia Malignancy Medical History: Reports: Breast Cancer GI Medical History: Reports: Diverticulitis Denies: Crohn's Disease, Ulcerative Colitis Musculoskeltal Medical History: Reports: Arthritis Skin Medical History: Denies: Eczema, Psoriasis Psychiatric Medical History: Reports: Depression Traumatic Medical History: Denies: Gunshot Wound, Pneumothorax Hematology: Denies: Sickle Cell Disease Infectious Medical History: Reports: HIV Past Surgical History Past Surgical History: Reports: Cholecystectomy, Hysterectomy, Tubal Ligation Social/Family History - Social History Smoking Status: Current Every Day Smoker Cigarettes Packs Per Day: 10 Frequency of Alcohol Use: None Hx Recreational Drug Use: Yes Drugs: Marijuana Hx Prescription Drug Abuse: Yes - Medication/Allergies Allergies/Adverse Reactions: No Known Allergies Allergy (Verified 05/15/18 10:38) Review of Systems Review of Systems: per HPI Physical Exam Vital Signs: Temp Pulse Resp BP Pulse Ox 98.2 F 77 10 L 161/65 H 100 12/27/18 08:00 12/27/18 08:00 12/27/18 08:00 12/27/18 08:00 12/27/18 08:00 Intake & Output 12/26/18 12/27/18 12/28/18 06:59 06:59 06:59 Intake Total 3851 277 Output Total 875 400 Balance 2976 -123 Weight 68.7 kg Weight/Height Weight 68.7 kg Height 5 ft 4 in General appearance: PRESENT: no acute distress, well-developed, well-nourished Head exam: PRESENT: atraumatic, normocephalic Respiratory exam: PRESENT: clear to auscultation abraham, unlabored Cardiovascular exam: PRESENT: RRR GI/Abdominal exam: PRESENT: soft - non-tender, non-distended Rectal exam: PRESENT: other - fecal management system in place Gentrourinary exam: PRESENT: indwelling catheter Musculoskeletal exam: PRESENT: other - stage I sacral decubitus ulcer Laboratory/Radiographs Laboratory Results: 12/27/18 03:59 12/27/18 03:59 12/26/18 12/26/18 12/26/18 15:20 15:20 16:05 WBC 14.7 H RBC 4.21 Hgb 11.5 L Hct 36.3 MCV 86 MCH 27.2 MCHC 31.6 L RDW 17.2 H Plt Count 245 Seg Neutrophils % Not Reportable Sodium 134.5 L Potassium 4.4 Chloride 102 Carbon Dioxide 18 L Anion Gap 15 BUN 41 H Creatinine 3.20 H Est GFR ( Amer) 18 L Glucose 96 Lactic Acid 3.1 H Calcium 9.5 Magnesium Total Bilirubin 0.5 AST 18 Alkaline Phosphatase 103 Total Protein 6.7 Albumin 3.7 TSH Urine Color Urine Appearance Urine pH Ur Specific [place] Urine Protein Urine Glucose (UA) Urine Ketones Urine Blood Urine Nitrite Ur Leukocyte Esterase Urine WBC (Auto) Urine RBC (Auto) 12/26/18 12/26/18 12/27/18 17:37 19:07 03:59 WBC 12.8 H RBC 4.07 Hgb 10.8 L Hct 33.9 L MCV 83 MCH 26.5 L MCHC 31.8 L RDW 16.9 H Plt Count 234 Seg Neutrophils % Sodium Potassium Chloride Carbon Dioxide Anion Gap BUN Creatinine Est GFR ( Amer) Glucose Lactic Acid 1.0 Calcium Magnesium Total Bilirubin AST Alkaline Phosphatase Total Protein Albumin TSH Urine Color JACQUES Urine Appearance CLEAR Urine pH 5.0 Ur Specific [place] 1.018 Urine Protein NEGATIVE Urine Glucose (UA) NEGATIVE Urine Ketones TRACE H Urine Blood NEGATIVE Urine Nitrite NEGATIVE Ur Leukocyte Esterase TRACE H Urine WBC (Auto) 8 Urine RBC (Auto) 4 12/27/18 12/27/18 03:59 03:59 WBC RBC Hgb Hct MCV MCH MCHC RDW Plt Count Seg Neutrophils % Sodium 139.7 Potassium 3.9 Chloride 109 H Carbon Dioxide 20 L Anion Gap 11 BUN 31 H Creatinine 2.12 H Est GFR ( Amer) 29 L Glucose 109 Lactic Acid Calcium 9.1 Magnesium 1.5 L Total Bilirubin AST Alkaline Phosphatase Total Protein Albumin TSH 0.18 L Urine Color Urine Appearance Urine pH Ur Specific [place] Urine Protein Urine Glucose (UA) Urine Ketones Urine Blood Urine Nitrite Ur Leukocyte Esterase Urine WBC (Auto) Urine RBC (Auto) Impressions: Abdomen/Pelvis CT 12/26/18 16:03 IMPRESSION: 1. The colon is filled with fluid consistent with history of diarrhea. There is no associated bowel wall thickening or pericolonic stranding. 2. Stable left adrenal nodule. 3. Status post endovascular repair of an abdominal aortic aneurysm; the diameter of the excluded aneurysm sac is unchanged from 10/11/2018. 4. Other findings as detailed above. Chest X-Ray 12/26/18 18:38 IMPRESSION: The right-sided central venous catheter crosses the midline and based on its course there is concern that it is intra-arterial rather than intravenous. Critical Time -: The care of a critically ill patient is dynamic. This note represents a static moment in the admission process. orders and treatments may be given simulatane ously and urgentl, and time is not artists' booking representative of the treatment process. This patient requires Critical Care secondary to life threating organ or limb dysfunction. Without the need for Critical Care services, the patient is at risk for increasid mortality and morbidity. Provider Note Provider Note: Assessment: Critically ill 58 yo woman with septic shock, volume depletion, chronic diarrhea, HIV, SEB, CKD Plan: 1. Respiratory: stable on nasal cannula 2. CV: hypotension due to volume depletion from diarrhea. Continue to aggressively hydrate with IVF. Dopamine has been weaned to off 3. ID: septic shock, diarrhea, HIV. c.diff negative. d/c oral vanc. continue levquin and flagyl 4. GI: chronic diarrhea. c.diff negative. will start immodium 5. Renal:SEB, CKD. Will continue to hydrate with IVF. 6. Skin: stage I sacral decubitus ulcer, present on admission. Wound care, frequent repositioning 7. Prophylaxis: sq heparin
--- NOTE | 2018-12-27 10:37 | Progress Note ---
Provider Note Provider Note: The is a diagnosis of HIV in this pt med record, see pulmonary consult note from 10/12/18. There is no other mention of this in her records, this may be a mistake. Will order HIV test.
[2018-12-27] MEDS: OXYCODONE-ACETAMINOPHEN 5-325 MG TABLET PO SCH (19:02)
[2018-12-27] MEDS: OXYCODONE HCL IR 5 MG TABLET PO SCH (19:03)
--- NOTE | 2018-12-27 21:47 | EKG REPORT ---
SEVERITY:- BORDERLINE ECG - SINUS TACHYCARDIA BORDERLINE T ABNORMALITIES, ANT-LAT LEADS : Confirmed by: Chasity Welch MD 27-Dec-2018 21:45:28
[2018-12-28] MEDS: OXYCODONE HCL IR 5 MG TABLET PO SCH ×2 (00:21→05:38)
[2018-12-28] MEDS: OXYCODONE-ACETAMINOPHEN 5-325 MG TABLET PO SCH ×2 (00:21→05:38)
[2018-12-28] MEDS: METRONIDAZOLE 500 MG/NS RTU 500 MG/100 ML RTUPB IV SCH ×4 (03:16→20:59)
[2018-12-28] MEDS: RINGERS SOLUTION,LACTATED 1,000 ML IV PRN ×3 (03:18→17:02)
[2018-12-28 05:14] LABS: ABSOLUTE EOSINOPHILS # (AUTO) 0.1 10^3/uL (0.0-0.6); ABSOLUTE LYMPHOCYTES (AUTO) 2.7 10^3/uL (0.5-4.7); ABSOLUTE MONOCYTES (AUTO) 0.4 10^3/uL (0.1-1.4); ABSOLUTE NEUT (AUTO) 5.4 10^3/uL (1.7-8.2); BASOPHILS % (AUTO) 0.5 % (0-2); EOSINOPHILS % (AUTO) 1.2 % (0-6); HEMATOCRIT 26.3 % (36.0-47.0); LYMPHOCYTES % (AUTO) 30.8 % (13-45); MEAN CORPUSCULAR HGB CONC 32.6 g/dL (32.0-36.0); MEAN CORPUSCULAR VOLUME 83 fl (80-97); MONOCYTES % (AUTO) 4.9 % (3-13); PLATELET COUNT 178 10^3/uL (150-450); RED BLOOD COUNT 3.18 10^6/uL (3.72-5.28); SEGMENTED NEUTROPHILS % (AUTO) 62.6 % (42-78); TOTAL CELLS COUNTED % (AUTO) 100 %; WHITE BLOOD COUNT 8.6 10^3/uL (4.0-10.5)
[2018-12-28 05:21] LABS: ANION GAP 5 (5-19); BLOOD UREA NITROGEN 16 mg/dL (7-20); CALCIUM 8.9 mg/dL (8.4-10.2); CARBON DIOXIDE 20 mmol/L (22-30); CHLORIDE 113 mmol/L (98-107); GLUCOSE 76 mg/dL (75-110); POTASSIUM 4.1 mmol/L (3.6-5.0)
[2018-12-28 05:22] LABS: HEMOGLOBIN 8.6 g/dL (12.0-15.5)
[2018-12-28] MEDS: HEPARIN SOD (PORCINE) 5,000 UNIT/ML 1 ML VIAL SUBCUT SCH ×3 (05:34→21:00)
[2018-12-28] MEDS ORDERED: ACETAMINOPHEN 325 MG TABLET PO PRN (07:42)
[2018-12-28] MEDS ORDERED: INFLUENZA QUAD (6MOS+) 2019-20 VAC 0.5 ML SYR IM ONE (08:00)
[2018-12-28] MEDS: OXYCODONE-ACETAMINOPHEN 5-325 MG TABLET PO PRN ×4 (09:08→21:02)
--- NOTE | 2018-12-28 10:28 | PDOC PROGRESS REPORT ---
Subjective Progress Note for:: 12/28/18 Subjective:: ICU progress note Pt is off dopamine. Is awake and alert. Feels much better today. Reason For Visit: SEPTIC SHOCK,SEB,GASTROENTERITIS Physical Exam Vital Signs: Temp Pulse Resp BP Pulse Ox 98.2 F 80 10 L 113/57 L 100 12/28/18 08:00 12/28/18 08:00 12/28/18 08:00 12/28/18 08:00 12/28/18 08:00 Intake & Output 12/27/18 12/28/18 12/29/18 06:59 06:59 06:59 Intake Total 3851 4155 Output Total 875 2425 75 Balance 2976 1730 -75 Weight 68.7 kg 68.7 kg General appearance: PRESENT: no acute distress, well-developed, well-nourished Head exam: PRESENT: atraumatic, normocephalic Respiratory exam: PRESENT: clear to auscultation abraham, unlabored Cardiovascular exam: PRESENT: RRR GI/Abdominal exam: PRESENT: soft, other - non-tender, non-distended Extremities exam: PRESENT: other - no edema Neurological exam: PRESENT: alert, awake Results Laboratory Results: 12/28/18 04:30 12/28/18 04:30 12/28/18 12/28/18 12/28/18 04:30 04:30 04:30 WBC 8.6 RBC 3.18 L Hgb 8.6 L D Hct 26.3 L MCV 83 MCH 27.0 MCHC 32.6 RDW 17.0 H Plt Count 178 Seg Neutrophils % 62.6 Sodium 138.1 Potassium 4.1 Chloride 113 H Carbon Dioxide 20 L Anion Gap 5 BUN 16 Creatinine 1.20 Est GFR ( Amer) 55 L Glucose 76 Calcium 8.9 Magnesium 1.8 Free T4 1.49 Free T3 pg/mL 12/28/18 04:30 WBC RBC Hgb Hct MCV MCH MCHC RDW Plt Count Seg Neutrophils % Sodium Potassium Chloride Carbon Dioxide Anion Gap BUN Creatinine Est GFR ( Amer) Glucose Calcium Magnesium Free T4 Free T3 pg/mL 2.62 L Impressions: Abdomen/Pelvis CT 12/26/18 16:03 IMPRESSION: 1. The colon is filled with fluid consistent with history of diarrhea. There is no associated bowel wall thickening or pericolonic stranding. 2. Stable left adrenal nodule. 3. Status post endovascular repair of an abdominal aortic aneurysm; the diame ter of the excluded aneurysm sac is unchanged from 10/11/2018. 4. Other findings as detailed above. Chest X-Ray 12/26/18 18:38 IMPRESSION: The right-sided central venous catheter crosses the midline and based on its course there is concern that it is intra-arterial rather than intravenous. Assessment & Plan - Diagnosis (1) SEB (acute kidney injury) Is this a current diagnosis for this admission?: Yes (2) CKD (chronic kidney disease), stage III Is this a current diagnosis for this admission?: Yes (3) Septic shock Is this a current diagnosis for this admission?: Yes (4) Diarrhea Qualifiers: Diarrhea type: unspecified type Qualified Code(s): R19.7 - Diarrhea, unspecified Is this a current diagnosis for this admission?: Yes - Plan Summary Plan Summary: Assessment: Critically ill 58 yo woman with septic shock, volume depletion, chronic diarrhea, HIV, SEB, CKD Plan: 1. Respiratory: stable on nasal cannula, wean to RA 2. CV: hypotension due to volume depletion from diarrhea, resolved. Dopamine is off. Will decreas IVF. 3. ID: septic shock, diarrhea, c.diff negative. continue levquin and flagyl.Pt does NOT have HIV. The diagnosis was listed in error in a consult not from September 2018. 4. GI: chronic diarrhea. will start immodium 5. Renal:SEB, resolved, CKD. Will continue to hydrate with IVF. 6. Skin: stage I sacral decubitus ulcer, present on admission. Wound care, frequent repositioning. Pt uses a wheelchair 7. Prophylaxis: sq heparin 8. at bedside. Updated on pt condition and plan of care. 8. Disposition: stable for transfer out of the ICU
[2018-12-28] MEDS: LEVOFLOXACIN 750 MG/D5W RTU 750 MG/150 ML RTUPB IV SCH (22:30)
[2018-12-29] MEDS ORDERED: ONDANSETRON 4 MG TAB.RAPDIS PO PRN (01:09)
[2018-12-29] MEDS: METRONIDAZOLE 500 MG/NS RTU 500 MG/100 ML RTUPB IV SCH (02:21)
[2018-12-29 04:20] LABS: ABSOLUTE BASOPHILS # (AUTO) 0.1 10^3/uL (0.0-0.2); ABSOLUTE EOSINOPHILS # (AUTO) 0.1 10^3/uL (0.0-0.6); ABSOLUTE LYMPHOCYTES (AUTO) 1.9 10^3/uL (0.5-4.7); ABSOLUTE MONOCYTES (AUTO) 0.4 10^3/uL (0.1-1.4); BASOPHILS % (AUTO) 0.7 % (0-2); HEMOGLOBIN 8.9 g/dL (12.0-15.5); LYMPHOCYTES % (AUTO) 21.9 % (13-45); MEAN CORPUSCULAR HEMOGLOBIN 27.5 pg (27.0-33.4); MEAN CORPUSCULAR VOLUME 83 fl (80-97); MONOCYTES % (AUTO) 5.1 % (3-13); PLATELET COUNT 173 10^3/uL (150-450); RED BLOOD COUNT 3.25 10^6/uL (3.72-5.28); SEGMENTED NEUTROPHILS % (AUTO) 71.3 % (42-78); TOTAL CELLS COUNTED % (AUTO) 100 %; WHITE BLOOD COUNT 8.5 10^3/uL (4.0-10.5)
[2018-12-29 04:38] LABS: ANION GAP 7 (5-19); BLOOD UREA NITROGEN 11 mg/dL (7-20); CALCIUM 8.8 mg/dL (8.4-10.2); CARBON DIOXIDE 21 mmol/L (22-30); CHLORIDE 109 mmol/L (98-107); GLUCOSE 78 mg/dL (75-110); POTASSIUM 3.9 mmol/L (3.6-5.0)
[2018-12-29] MEDS ORDERED: MAGNESIUM SULFATE/D5W 1 GM/100 ML RTUPB IV ONE ×2 (05:24→05:30)
[2018-12-29] MEDS: RINGERS SOLUTION,LACTATED 1,000 ML IV PRN (06:43)
[2018-12-29] MEDS: HEPARIN SOD (PORCINE) 5,000 UNIT/ML 1 ML VIAL SUBCUT SCH (06:45)
[2018-12-29] MEDS ORDERED: DIPHENOXYLATE HCL/ATROP SULF 2.5-0.025 MG TABLET PO PRN (08:34)
[2018-12-29] MEDS: OXYCODONE-ACETAMINOPHEN 5-325 MG TABLET PO PRN (08:56)
--- NOTE | 2018-12-29 09:11 | PDOC DISCHARGE SUMMARY ---
Impression - Admit/DC Date/PCP Admission Date/Primary Care Provider: 12/26/18 19:55 LETA PRIEST DO Discharge Date: 12/29/18 - Discharge Diagnosis (1) SEB (acute kidney injury) Is this a current diagnosis for this admission?: Yes (2) CKD (chronic kidney disease), stage III Is this a current diagnosis for this admission?: Yes (3) Septic shock Is this a current diagnosis for this admission?: Yes (4) Diarrhea Is this a current diagnosis for this admission?: Yes - Additional Information Resuscitation Status: Full Code Discharge Diet: As Tolerated Discharge Activity: Activity As Tolerated Referrals: LETA PRIEST DO [Primary Care Provider] - Follow up as needed Prescriptions: Diphenoxylate HCl/Atrop Sulf [Lomotil 2.5 mg Tablet] 1 tab PO QIDP PRN #90 tablet PRN Reason: diarrhea Home Medications: Lisinopril [Prinivil 10 mg Tablet] 10 mg PO DAILY 12/27/18 Oxycodone HCl/Acetaminophen [Percocet 10-325 mg Tablet] 1 each PO QID 12/27/18 Diphenoxylate HCl/Atrop Sulf [Lomotil 2.5 mg Tablet] 1 tab PO QIDP PRN #90 tablet 12/29/18 History of Present Illiness History of Present Illness: Pt is a 58 yo woman with a h/oHTN, COPD, AAA repair, HIV, CKD III, CVA who has had diarrhea for the past several months. She presented to the ED and was found to be hypotensive with an SBP in the 80s. She was given several liters of IVF and given a dose of broad spectrum ATBX. She was started on dopamine in the ED. Today her dopamine has been weaned to off. Hospital Course Hospital Course: Assessment: Critically ill 58 yo woman with septic shock, volume depletion, chronic diarrhea, SEB, CKD Plan: 1. Respiratory: stable on RA 2. CV: hypotension due to volume depletion from diarrhea, resolved. Off dopamine. D/C IVF 3. ID: septic shock, diarrhea, c.diff negative, stool studies negative. Day 4 levquin and flagyl, will d/c. Pt does NOT have HIV. The diagnosis was listed in error in a consult not from September 2018. 4. GI: chronic diarrhea, resoliving. Continue lomotid 5. Renal:SEB, resolved, CKD. IVF stopped 6. Skin: stage I sacral decubitus ulcer, present on admission. Wound care, frequent repositioning. Pt uses a wheelchair at home 7. Prophylaxis: sq heparin 8. at bedside. Updated on pt condition and plan of care. 8. Disposition: will discharge home. Physical Exam Vital Signs: Temp Pulse Resp BP Pulse Ox 97.4 F 73 12 131/70 H 99 12/28/18 18:00 12/28/18 20:41 12/29/18 06:01 12/29/18 05:59 12/29/18 06:01 Intake & Output 12/28/18 12/29/18 12/30/18 06:59 06:59 06:59 Intake Total 4155 3040 Output Total 2425 1145 Balance 1730 1895 Weight 68.7 kg 75.3 kg General appearance: PRESENT: no acute distress, well-developed, well-nourished Head exam: PRESENT: atraumatic, normocephalic Respiratory exam: PRESENT: clear to auscultation abraham, unlabored Cardiovascular exam: PRESENT: RRR GI/Abdominal exam: PRESENT: soft - non-tender, non-distended Neurological exam: PRESENT: alert, awake Psychiatric exam: PRESENT: appropriate affect Results Laboratory Results: WBC 8.5 10^3/uL (4.0-10.5) 12/29/18 04:09 RBC 3.25 10^6/uL (3.72-5.28) L 12/29/18 04:09 Hgb 8.9 g/dL (12.0-15.5) L 12/29/18 04:09 Hct 27.0 % (36.0-47.0) L 12/29/18 04:09 MCV 83 fl (80-97) 12/29/18 04:09 MCH 27.5 pg (27.0-33.4) 12/29/18 04:09 MCHC 33.0 g/dL (32.0-36.0) 12/29/18 04:09 RDW 17.0 % (11.5-14.0) H 12/29/18 04:09 Plt Count 173 10^3/uL (150-450) 12/29/18 04:09 Lymph % (Auto) 21.9 % (13-45) 12/29/18 04:09 [place] % (Auto) 5.1 % (3-13) 12/29/18 04:09 Eos % (Auto) 1.0 % (0-6) 12/29/18 04:09 Baso % (Auto) 0.7 % (0-2) 12/29/18 04:09 Absolute Neuts (auto) 6.0 10^3/uL (1.7-8.2) 12/29/18 04:09 Absolute Lymphs (auto) 1.9 10^3/uL (0.5-4.7) 12/29/18 04:09 Absolute Monos (auto) 0.4 10^3/uL (0.1-1.4) 12/29/18 04:09 Absolute Eos (auto) 0.1 10^3/uL (0.0-0.6) 12/29/18 04:09 Absolute Basos (auto) 0.1 10^3/uL (0.0-0.2) 12/29/18 04:09 Total Counted 100 12/26/18 15:20 Seg Neutrophils % 71.3 % (42-78) 12/29/18 04:09 Seg Neuts % (Manual) 82 % (42-78) H 12/26/18 15:20 Band Neutrophils % 1 % (3-5) L 12/26/18 15:20 Lymphocytes % (Manual) 15 % (13-45) 12/26/18 15:20 Monocytes % (Manual) 2 % (3-13) L 12/26/18 15:20 Eosinophils % (Manual) 0 % (0-6) 12/26/18 15:20 Basophils % (Manual) 0 % (0-2) 12/26/18 15:20 Abs Neuts (Manual) 12.2 10^3/uL (1.7-8.2) H 12/26/18 15:20 Abs Lymphs (Manual) 2.2 10^3/uL (0.5-4.7) 12/26/18 15:20 Abs Monocytes (Manual) 0.3 10^3/uL (0.1-1.4) 12/26/18 15:20 Absolute Eos (Manual) 0.0 10^3/uL (0.0-0.6) 12/26/18 15:20 Abs Basophils (Manual) 0.0 10^3/uL (0.0-0.2) 12/26/18 15:20 Toxic Vacuolation PRESENT 12/26/18 15:20 Platelet Comment ADEQUATE 12/26/18 15:20 RBC Morph Comment NORMO-CYTIC/CHROMIC 12/26/18 15:20 Sodium 137.0 mmol/L (137-145) 12/29/18 04:09 Potassium 3.9 mmol/L (3.6-5.0) 12/29/18 04:09 Chloride 109 mmol/L (98-107) H 12/29/18 04:09 Carbon Dioxide 21 mmol/L (22-30) L 12/29/18 04:09 Anion Gap 7 (5-19) 12/29/18 04:09 BUN 11 mg/dL (7-20) 12/29/18 04:09 Creatinine 0.84 mg/dL (0.52-1.25) 12/29/18 04:09 Est GFR ( Amer) > 60 (>60) 12/29/18 04:09 Est GFR (MDRD) Non-Af > 60 (>60) 12/29/18 04:09 Glucose 78 mg/dL (75-110) 12/29/18 04:09 Lactic Acid 1.0 mmol/L (0.7-2.1) 12/26/18 19:07 Calcium 8.8 mg/dL (8.4-10.2) 12/29/18 04:09 Magnesium 1.5 mg/dL (1.6-2.3) L 12/29/18 04:09 Total Bilirubin 0.5 mg/dL (0.2-1.3) 12/26/18 15:20 Direct Bilirubin 0.4 mg/dL (0.0-0.4) 12/26/18 15:20 Neonat Total Bilirubin Not Reportable 12/26/18 15:20 Neonat Direct Bilirubin Not Reportable 12/26/18 15:20 Neonat Indirect Bili Not Reportable 12/26/18 15:20 AST 18 U/L (14-36) 12/26/18 15:20 ALT 11 U/L (<35) 12/26/18 15:20 Alkaline Phosphatase 103 U/L (38-126) 12/26/18 15:20 Total Protein 6.7 g/dL (6.3-8.2) 12/26/18 15:20 Albumin 3.7 g/dL (3.5-5.0) 12/26/18 15:20 TSH 0.18 uIU/mL (0.47-4.68) L 12/27/18 03:59 Free T4 1.49 ng/dL (0.78-2.19) 12/28/18 04:30 Free T3 pg/mL 2.62 pg/mL (2.77-5.27) L 12/28/18 04:30 Urine Color JACQUES 12/26/18 17:37 Urine Appearance CLEAR 12/26/18 17:37 Urine pH 5.0 (5.0-9.0) 12/26/18 17:37 Ur Specific [place] 1.018 12/26/18 17:37 Urine Protein NEGATIVE mg/dL (NEGATIVE) 12/26/18 17:37 Urine Glucose (UA) NEGATIVE mg/dL (NEGATIVE) 12/26/18 17:37 Urine Ketones TRACE mg/dL (NEGATIVE) H 12/26/18 17:37 Urine Blood NEGATIVE (NEGATIVE) 12/26/18 17:37 Urine Nitrite NEGATIVE (NEGATIVE) 12/26/18 17:37 Urine Bilirubin NEGATIVE (NEGATIVE) 12/26/18 17:37 Urine Urobilinogen NEGATIVE mg/dL (<2.0) 12/26/18 17:37 Ur Leukocyte Esterase TRACE (NEGATIVE) H 12/26/18 17:37 Urine WBC (Auto) 8 /HPF 12/26/18 17:37 Urine RBC (Auto) 4 /HPF 12/26/18 17:37 U Hyaline Cast (Auto) 5 /LPF 12/26/18 17:37 Squamous Epi Cells Auto <1 /HPF 12/26/18 17:37 Urine Mucus (Auto) RARE /LPF 12/26/18 17:37 Urine Ascorbic Acid NEGATIVE (NEGATIVE) 12/26/18 17:37 Stl C. Difficile GDH Ag NEGATIVE (NEGATIVE) 12/26/18 20:58 Stl C.difficile Tox A&B NEGATIVE (NEGATIVE) 12/26/18 20:58 HIV 1&2 Antibody NEGATIVE (NEGATIVE) 12/27/18 03:52 Impressions: Abdomen/Pelvis CT 12/26/18 16:03 IMPRESSION: 1. The colon is filled with fluid consistent with history of diarrhea. There is no associated bowel wall thickening or pericolonic stranding. 2. Stable left adrenal nodule. 3. Status post endovascular repair of an abdominal aortic aneurysm; the diameter of the excluded aneurysm sac is unchanged from 10/11/2018. 4. Other findings as detailed above. Chest X-Ray 12/26/18 16:03 IMPRESSION: No acute findings in the chest. Chest X-Ray 12/26/18 18:38 IMPRESSION: The right-sided central venous catheter crosses the midline and based on its course there is concern that it is intra-arterial rather than intravenous. Plan Time Spent: Less than 30 Minutes Stroke Is this a Stroke Patient?: No Acute Heart Failure - Is this a Heart Failure Patient?: No
[2018-12-29 09:21] VITALS: BP 126/64
[2018-12-29] MEDS ORDERED: DIPHENOXYLATE HCL/ATROP SULF 2.5-0.025 MG TABLET PO SCH (10:00)
== END 2018-12-29 10:00 | disposition home or self-care (01) | DRG 871 ==
LOC: ER 15:08 → EH 19:55 → ICU 22:06
PROVIDERS: ADMIT Internal Medicine; ATTEND Internal Medicine
PROC: 02HV33Z Insertion of Infusion Device into Superior Vena Cava, Percutaneous Approach (ICD-10-PCS; principal; 2018-12-26)
DX: A41.9 Sepsis, unspecified organism (principal); R65.21 Severe sepsis with septic shock; N17.9 Acute kidney failure, unspecified; N18.3 Chronic kidney disease, stage 3 (moderate); I12.9 Hypertensive chronic kidney disease with stage 1 through stage 4 chronic kidney disease, or unspecified chronic kidney disease; J44.9 Chronic obstructive pulmonary disease, unspecified; L89.151 Pressure ulcer of sacral region, stage 1; E78.5 Hyperlipidemia, unspecified; F32.9 Major depressive disorder, single episode, unspecified; K52.9 Noninfective gastroenteritis and colitis, unspecified; F17.210 Nicotine dependence, cigarettes, uncomplicated; E78.00 Pure hypercholesterolemia, unspecified; Z85.3 Personal history of malignant neoplasm of breast; Z86.73 Personal history of transient ischemic attack (TIA), and cerebral infarction without residual deficits
CPT/HCPCS: 36415; 51702; 71045; 74176; 80048; 80053; 81001; 83605; 83735; 84439; 84443; 84481; 85025; 85027; 86701; 87040; 87045; 87205; 87324; 87449; 93005; 93010; 96360; 96361; 99291; 99292; C1751; J1265; J1644; J1956; J2543; J3370; J3475; J3490; J7030; J7120; S0119

== ENCOUNTER 2019-01-10 19:39 | Inpatient (IN) | payer MEDICAID ==
--- NOTE | 2019-01-10 19:57 | ER Document Report ---
ED General - General Stated Complaint: HYPOTENSION,DIRRHEA Time Seen by Provider: 01/10/19 19:57 Primary Care Provider: LETA PRIEST DO [Primary Care Provider] - Follow up as needed TRAVEL OUTSIDE OF THE [place] IN LAST 30 DAYS: No - HPI Notes: 58-year-old female presenting for evaluation of chronic diarrhea, acute weakness and hypotension. Patient has a history of pyelonephritis, sepsis, lower extrem ity paralysis. According to the patient's daughter, patient was just discharged from the hospital after being admitted for sepsis. Daughter states that the patient was discharged approximately 1 week ago. Daughter states that the patient's appetite is been poor, and her diarrhea has been chronic. Furthermore, daughter states that the patient has constant, chronic low back pain and a history of chronic kidney infections. - Related Data Allergies/Adverse Reactions: No Known Allergies Allergy (Verified 05/15/18 10:38) Past Medical History - General Information source: Patient, Relative - Social History Smoking Status: Unknown if Ever Smoked Family History: COPD, Hypertension - Past Medical History Cardiac Medical History: Reports: Hx Hypercholesterolemia, Hx Hypertension Pulmonary Medical History: Reports: Hx Bronchitis, Hx COPD, Hx Pneumonia Renal/ Medical History: Denies: Hx Peritoneal Dialysis Malignancy Medical History: Reports: Hx Breast Cancer GI Medical History: Reports: Hx Diverticulitis. Denies: Hx Crohn's Disease, Hx Ulcerative Colitis Musculoskeletal Medical History: Reports Hx Arthritis Skin Medical History: Denies Hx Eczema, Denies Hx Psoriasis Psychiatric Medical History: Reports: Hx Depression Traumatic Medical History: Denies: Hx Gunshot Wound, Hx Pneumothorax Infectious Medical History: Reports: Hx HIV Past Surgical History: Reports: Hx Cholecystectomy, Hx Hysterectomy, Hx Tubal Ligation - Immunizations Hx Diphtheria, Pertussis, Tetanus Vaccination: Yes Hx Pneumococcal Vaccination: 01/29/15 Review of Systems - Review of Systems Constitutional: See HPI, Weakness EENT: No symptoms reported Cardiovascular: No symptoms reported Respiratory: No symptoms reported Gastrointestinal: Diarrhea, Nausea Genitourinary: No symptoms reported Female Genitourinary: See HPI Musculoskeletal: See HPI Skin: No symptoms reported Hematologic/Lymphatic: No symptoms reported Neurological/Psychological: Depression -: Yes All other systems reviewed and negative Physical Exam - Vital signs Vitals: Resp 15 01/10/19 19:42 - Notes Notes: PHYSICAL EXAMINATION: GENERAL: Ill-appearing, chronically ill appearing, depressed affect GCS 15. HEAD: Atraumatic, normocephalic. EYES: Pupils equal round and reactive to light, extraocular movements intact, sclera anicteric, conjunctiva are normal. ENT: nares patent, oropharynx clear without exudates. dry mucous membranes. NECK: Normal range of motion, supple without lymphadenopathy LUNGS: Breath sounds clear to auscultation bilaterally and equal. No wheezes rales or rhonchi. HEART: Tachycardia, no murmurs clicks or rubs ABDOMEN: Soft, nontender, hyperactive bowel sounds. No guarding, no rebound. No masses appreciated. EXTREMITIES: No deformity NEUROLOGICAL: GCS of 15. PSYCH: Depressed affect. SKIN: Warm, Dry, poor turgor turgor, no rashes or lesions noted. Course - Re-evaluation Re-evalutation: 01/10/19 23:40 Patient is remained hypotensive despite 3 L of fluid. This MD placed a right triple-lumen femoral vein catheter and ordered Rocephin along with Levophed.. Case was discussed with Dr. Pisano at 2202 hours. He agreed to admit the patient. Differential diagnosis: Sepsis, acute on chronic renal failure, pyelonephritis, volume loss secondary to chronic diarrhea Assessment and plan: 58-year-old female with history of pyelonephritis, sepsis, chronic diarrhea presenting complaining of generalized weakness and chronic back pain. ED evaluation suggestive of sepsis secondary to urinary tract infection. Right femoral triple-lumen catheter placed in ED by this physician. Sepsis labs, fluids, antibiotics and Levophed initiated in ED. Patient discussed with hospitalist; he will admit patient to ICU for further resuscitation and treatment. - Vital Signs Vital signs: Temp Pulse Resp BP Pulse Ox 97.7 F 13 84/74 L 99 01/10/19 20:41 01/10/19 23:15 01/10/19 23:11 01/10/19 23:16 Vital signs reviewed by this MD - Laboratory Result Diagrams: 01/10/19 19:47 01/10/19 19:47 Laboratory results interpreted by me: 01/10/19 01/10/19 01/10/19 19:42 19:47 19:47 WBC 12.1 H RBC 3.59 L Hgb 9.6 L Hct 30.3 L MCH 26.8 L MCHC 31.9 L RDW 17.9 H Lymph % (Auto) 10.6 L Absolute Neuts (auto) 10.0 H Seg Neutrophils % 82.8 H VBG pH Sodium 136.9 L Carbon Dioxide 20 L BUN 40 H Creatinine 3.79 H Est GFR ( Amer) 15 L Est GFR (MDRD) Non-Af 12 L Glucose 121 H Direct Bilirubin 1.3 H Total Protein 6.1 L Albumin 3.0 L Urine Protein 30 H Urine Ketones TRACE H Ur Leukocyte Esterase MODERATE H 01/10/19 19:47 WBC RBC Hgb Hct MCH MCHC RDW Lymph % (Auto) Absolute Neuts (auto) Seg Neutrophils % VBG pH 7.21 L Sodium Carbon Dioxide BUN Creatinine Est GFR ( Amer) Est GFR (MDRD) Non-Af Glucose Direct Bilirubin Total Protein Albumin Urine Protein Urine Ketones Ur Leukocyte Esterase All laboratory findings reviewed by this MD. - Diagnostic Test Radiology reviewed: Reports reviewed - EKG Interpretation by Me Additional EKG results interpreted by me: 01/10/19 23:45 EKG performed at 1943 hrs. on 01/10/2019 reviewed by this MD. Findings: Sinus rhythm, heart rate of 97, normal axis, narrow QRS, nonspecific ST segments. Impression normal sinus rhythm with nonspecific ST segments and no overt evidence of STEMI Procedures - Central Line Right Femoral Time completed: 22:50 Consent obtained: Yes Central line pre-insertion: Sterile PPE donned, Chloraprep applied, Sterile drapes applied Central line lumen type: Triple Anesthetic type: 1% Lidocaine mL's of anesthesia: 5 Ultrasound guided: No Line secured with sutures: Yes Central line post-insertion: Blood return from lumens, Biopatch applied, Sutured, Sterile dressing applied Number of attempts: 1 Complications: No Critical Care Note - Critical Care Note Total time excluding time spent on procedures (mins): 60 Discharge - Discharge Clinical Impression: Acute kidney injury superimposed on chronic kidney disease, Pyelonephritis, Severe sepsis Diarrhea Qualifiers: Diarrhea type: unspecified type Qualified Code(s): R19.7 - Diarrhea, unspecified Hypotension Qualifiers: Hypotension type: unspecified hypotension type Qualified Code(s): I95.9 - Hypotension, unspecified Sepsis Qualifiers: Sepsis type: sepsis due to unspecified organism Sepsis acute organ dysfunction status: unspecified Qualified Code(s): A41.9 - Sepsis, unspecified organism Condition: Critical Disposition: ADMITTED INPATIENT Admitting Provider: Aliya (Hospitalist) Unit Admitted: ICU Referrals: LETA PRIEST DO [Primary Care Provider] - Follow up as needed
[2019-01-10] MEDS: NORMAL SALINE 1000 ML 1,000 ML IV PRN ×2 (20:00→21:26)
[2019-01-10 20:09] LABS: ABSOLUTE BASOPHILS # (AUTO) 0.1 10^3/uL (0.0-0.2); ABSOLUTE LYMPHOCYTES (AUTO) 1.3 10^3/uL (0.5-4.7); ABSOLUTE MONOCYTES (AUTO) 0.7 10^3/uL (0.1-1.4); BASOPHILS % (AUTO) 0.5 % (0-2); EOSINOPHILS % (AUTO) 0.4 % (0-6); HEMATOCRIT 30.3 % (36.0-47.0); HEMOGLOBIN 9.6 g/dL (12.0-15.5); LYMPHOCYTES % (AUTO) 10.6 % (13-45); MEAN CORPUSCULAR HEMOGLOBIN 26.8 pg (27.0-33.4); MEAN CORPUSCULAR HGB CONC 31.9 g/dL (32.0-36.0); MEAN CORPUSCULAR VOLUME 84 fl (80-97); MONOCYTES % (AUTO) 5.7 % (3-13); PLATELET COUNT 395 10^3/uL (150-450); RED BLOOD COUNT 3.59 10^6/uL (3.72-5.28); RED CELL DISTRIBUTION WIDTH 17.9 % (11.5-14.0); SEGMENTED NEUTROPHILS % (AUTO) 82.8 % (42-78); TOTAL CELLS COUNTED % (AUTO) 100 %; WHITE BLOOD COUNT 12.1 10^3/uL (4.0-10.5)
[2019-01-10 20:12] LABS: VENOUS BLOOD BASE EXCESS -7.9 mmol/L; VENOUS BLOOD PCO2 51.5 mmHg (35-63); VENOUS BLOOD PH 7.21 (7.30-7.42)
[2019-01-10 20:17] LABS: INTERNATIONAL RATION (INR) 1.18; PROTHROMBIN TIME 15.1 SEC (11.4-15.4)
[2019-01-10 20:21] LABS: AMORPHOUS SEDIMENT,URINE TRACE /HPF; APPEARANCE,URINE CLOUDY; BILIRUBIN,URINE NEGATIVE (NEGATIVE); COLOR,URINE AMBER; GLUCOSE, URINE NEGATIVE (NEGATIVE); KETONES,URINE TRACE mg/dL (NEGATIVE); LEUKOCYTE ESTERASE,URINE MODERATE (NEGATIVE); NITRITE,URINE NEGATIVE (NEGATIVE); PROTEIN,URINE 30 mg/dL (NEGATIVE); UROBILINOGEN,URINE NEGATIVE mg/dL (<2.0)
[2019-01-10 20:24] LABS: ALKALINE PHOSPHATASE 88 U/L (38-126); ANION GAP 13 (5-19); ASPARTATE AMINO TRANSFERASE 15 U/L (14-36); BILIRUBIN,DIRECT 1.3 mg/dL (0.0-0.4); BILIRUBIN,TOTAL 1.3 mg/dL (0.2-1.3); BLOOD UREA NITROGEN 40 mg/dL (7-20); CALCIUM 8.6 mg/dL (8.4-10.2); CARBON DIOXIDE 20 mmol/L (22-30); CHLORIDE 104 mmol/L (98-107); CREATINE KINASE 38 U/L (30-135); GLUCOSE 121 mg/dL (75-110); POTASSIUM 4.3 mmol/L (3.6-5.0); TOTAL PROTEIN 6.1 g/dL (6.3-8.2)
[2019-01-10 20:35] LABS: CREATINE KINASE MB 0.69 ng/mL (<4.55)
[2019-01-10 20:37] LABS: TROPONIN I < 0.012 ng/mL
[2019-01-10] MEDS ORDERED: CEFTRIAXONE 1 GM/D5W RTU 1 GM/50 ML RTUPB IV ONE (20:53)
--- NOTE | 2019-01-10 20:55 | RADIOLOGY REPORT (SQ) ---
EXAM DESCRIPTION: XR CHEST 1 VIEW COMPLETED DATE/TME: 01/10/2019 00:00 CLINICAL HISTORY: 58 years Female weakness low blood pressure COMPARISON: 12/26/2018 FINDINGS: The cardiomediastinal silhouette appears unremarkable. No consolidating infiltrates or pleural effusions. No pneumothorax. IMPRESSION: No acute abnormality is identified.
[2019-01-10] MEDS ORDERED: NORMAL SALINE 1000 ML 1,000 ML IV ONE (21:16)
[2019-01-10] MEDS ORDERED: NOREPINEPHRINE BITARTRATE INJ/PF 4 MG/4 ML SDV IV ONE (21:40)
[2019-01-10] MEDS ORDERED: LIDOCAINE 2% INJ (20 MG/ML) 20 ML MDV ONE (22:35)
[2019-01-10] MEDS ORDERED: LIDOCAINE 2% INJ (20 MG/ML) 20 ML MDV INJ ONE (22:42)
[2019-01-10] MEDS ORDERED: DEXTROSE 5%-WATER 250 ML with NOREPINEPHRINE BITARTRATE 4 MG IV PRN ×2 (22:42)
[2019-01-10] MEDS ORDERED: CEFTRIAXONE 1 GM/D5W RTU 1 GM/50 ML RTUPB IV PRN (22:46)
[2019-01-10] MEDS ORDERED: DEXTROSE 5%-WATER 250 ML with VASOPRESSIN 100 UNIT IV PRN ×2 (23:49)
[2019-01-10] MEDS ORDERED: VASOPRESSIN INJ 20 UNIT/1 ML VIAL ONE (23:58)
[2019-01-10] MEDS ORDERED: ACETAMINOPHEN 325 MG TABLET PO PRN (23:58)
[2019-01-10] MEDS ORDERED: ACETAMINOPHEN 650 MG SUPP.RECT PR PRN (23:58)
[2019-01-11] MEDS ORDERED: NICOTINE 21 MG/24 HR PATCH.TD24 TD PRN (00:11)
[2019-01-11] MEDS ORDERED: MORPHINE SULFATE 10 MG/ML INJ IV PRN ×4 (00:11→00:40)
[2019-01-11] MEDS ORDERED: MEROPENEM 1 GM VIAL IV ONE (01:00)
[2019-01-11] MEDS ORDERED: NOREPINEPHRINE BITARTRATE INJ/PF 4 MG/4 ML SDV IV ONE (02:22)
[2019-01-11 04:42] LABS: C DIFFICILE GDH POSITIVE (NEGATIVE)
[2019-01-11] MEDS: RINGERS SOLUTION,LACTATED 1,000 ML IV PRN ×4 (05:21→20:55)
[2019-01-11 05:32] LABS: HEMOGLOBIN 9.9 g/dL (12.0-15.5); MEAN CORPUSCULAR HEMOGLOBIN 26.4 pg (27.0-33.4); MEAN CORPUSCULAR HGB CONC 30.9 g/dL (32.0-36.0); MEAN CORPUSCULAR VOLUME 86 fl (80-97); PLATELET COUNT 439 10^3/uL (150-450); RED BLOOD COUNT 3.74 10^6/uL (3.72-5.28); RED CELL DISTRIBUTION WIDTH 17.7 % (11.5-14.0); WHITE BLOOD COUNT 13.9 10^3/uL (4.0-10.5)
[2019-01-11 05:46] LABS: ALBUMIN 3.1 g/dL (3.5-5.0); ALKALINE PHOSPHATASE 99 U/L (38-126); ANION GAP 16 (5-19); ASPARTATE AMINO TRANSFERASE 18 U/L (14-36); BILIRUBIN,DIRECT 1.1 mg/dL (0.0-0.4); BILIRUBIN,TOTAL 1.1 mg/dL (0.2-1.3); BLOOD UREA NITROGEN 38 mg/dL (7-20); CALCIUM 8.3 mg/dL (8.4-10.2); CARBON DIOXIDE 15 mmol/L (22-30); CHLORIDE 109 mmol/L (98-107); GLUCOSE 115 mg/dL (75-110); POTASSIUM 3.8 mmol/L (3.6-5.0); TOTAL PROTEIN 6.2 g/dL (6.3-8.2)
[2019-01-11] MEDS ORDERED: VANCOMYCIN HCL INJ 500 MG VIAL PO SCH (06:00)
[2019-01-11 06:29] LABS: ABSOLUTE LYMPHOCYTES# (MANUAL) 0.7 10^3/uL (0.5-4.7); ABSOLUTE MONOCYTES # (MANUAL) 1.7 10^3/uL (0.1-1.4); ANISOCYTOSIS 1+; BAND NEUTROPHILS % (MANUAL) 10 % (3-5); BASOPHILS % (MANUAL) 0 % (0-2); EOSINOPHILS % (MANUAL) 0 % (0-6); HYPOCHROMASIA 1+; LYMPHOCYTES % (MANUAL) 5 % (13-45); METAMYELOCYTES % (MANUAL) 2 % (0); MONOCYTES % (MANUAL) 12 % (3-13); PLATELET COMMENT ADEQUATE; SEGMENTED NEUTROPHILS % (MAN) 71 % (42-78); TOTAL CELLS COUNTED 100
--- NOTE | 2019-01-11 06:43 | PDOC H&P ---
History of Present Illness Admission Date/PCP: 01/10/2019 23:35 LETA PRIEST DO Patient complains of: Weakness History of Present Illness: KAREN GOMEZ is a 58 year old female who presented to the emergency room with acute weakness. Patient claims that she developed sudden onset of acute generalized weakness earlier on the day of admission. Her weakness persisted and was also noted to be accompanied by hypotension when her blood pressure was taken. She admits prior similar episodes with kidney infections in the past. Her daughter adds that her appetite has been very poor since she was discharged from the hospital a week ago. Patient has not identified any aggravating or ameliorating factors for her weakness. In the emergency room she is found to h ave an elevated white count and severe hypotension requiring central line placement and vasopressor therapy. Patient was subsequently admitted to the ICU for further evaluation and treatment. Past Medical History Cardiac Medical History: Reports: Hyperlipidema, Hypertension, Other - History of sub-renal abdominal aortic aneurysm Denies: Atrial Fibrillation, Congestive Heart Failure, Coronary Artery Disease, Myocardial Infarction Pulmonary Medical History: Reports: Bronchitis, Chronic Obstructive Pulmonary Disease (COPD), Pneumonia EENT Medical History: Denies: Cataracts, Ears - Hearing aids Neurological Medical History: Reports: Ischemic CVA Denies: Hemorrhagic CVA, Seizures Endocrine Medical History: Denies: Diabetes Mellitus Type 1, Diabetes Mellitus Type 2, Hyperthyroidism, Hypothyroidism Renal/ Medical History: Reports: Other - Chronic kidney infections Denies: Chronic Kidney Disease, Nephrolithiasis Malignancy Medical History: Reports: Breast Cancer GI Medical History: Reports: Diverticulitis, Other - Chronic diarrhea Denies: Cirrhosis, Crohn's Disease, Hepatitis, Ulcerative Colitis Musculoskeltal Medical History: Reports: Arthritis Denies: Gout Skin Medical History: Reports: Other - Decubitus ulcers Denies: Eczema, Psoriasis Psychiatric Medical History: Reports: Depression, Substance Abuse, Tobacco Dependency Denies: Alcohol Dependency Traumatic Medical History: Denies: Gunshot Wound, Pneumothorax Hematology: Denies: Anemia, Bleeding Tendencies Infectious Medical History: Reports: HIV Past Surgical History Past Surgical History: Reports: Section - X3, Cholecystectomy, Hysterectomy, Tubal Ligation Social History Information Source: Patient Lives with: Spouse/Significant other Smoking Status: Current Every Day Smoker Electronic Cigarette use?: No Frequency of Alcohol Use: None Hx Recreational Drug Use: No Drugs: None Hx Prescription Drug Abuse: Yes - Advance Directive Resuscitation Status: Full Code Surrogate healthcare decision maker:: Stevan Gomez Family History Family History: COPD, Hypertension Parental Family History Reviewed: Yes Children Family History Reviewed: No Sibling(s) Family History Reviewed.: Yes Medication/Allergy Home Medications: Lisinopril [Prinivil 10 mg Tablet] 10 mg PO DAILY MDD SEE LABEL INSTRUCTIONS 12/27/18 Oxycodone HCl/Acetaminophen [Percocet 10-325 mg Tablet] 1 each PO Q6HP PRN 12/27/18 Allergies/Adverse Reactions: No Known Allergies Allergy (Verified 05/15/18 10:38) Review of Systems Constitutional: PRESENT: as per HPI, anorexia, weakness - Generalized. ABSENT: chills, fever(s) Eyes: ABSENT: visual disturbances, other - Eye pain Ears: ABSENT: hearing changes, other - Ear pain Nose, Mouth, and Throat: ABSENT: headache(s), mouth pain, sore throat Cardiovascular: PRESENT: other - Hypotensive. ABSENT: chest pain, palpitations Respiratory: ABSENT: cough, dyspnea Gastrointestinal: PRESENT: as per HPI, diarrhea - Chronic. ABSENT: abdominal pain, nausea, vomiting Genitourinary: PRESENT: other - Chronic urinary tract infections. ABSENT: dysuria, hematuria Musculoskeletal: PRESENT: as per HPI, back pain - Chronic, muscle weakness - Chronic right lower extremity weakness status post CVA X 2. ABSENT: joint swelling Integumentary: PRESENT: erythema - Of groin and perineal region, wounds - Sacral decubitus ulcer. ABSENT: pruritus, rash Neurological: PRESENT: other - Paresis of right lower extremity. ABSENT: conf usion, convulsions, focal weakness, memory loss, syncope Psychiatric: ABSENT: anxiety, depression Endocrine: ABSENT: cold intolerance, heat intolerance Hematologic/Lymphatic: ABSENT: easy bleeding, easy bruising Allergic/Immunologic: ABSENT: seasonal rhinorrhea Physical Exam Vital Signs: Temp Pulse Resp BP Pulse Ox 97.7 F 13 84/74 L 99 01/10/19 20:41 01/10/19 23:15 01/10/19 23:11 01/10/19 23:16 Intake & Output 01/08/19 01/09/19 01/10/19 23:59 23:59 23:59 Intake Total 2066 Balance 2066 General appearance: PRESENT: cooperative, mild distress - General discomfort Head exam: PRESENT: atraumatic, normocephalic Eye exam: PRESENT: conjunctiva pink. ABSENT: conjunctival injection, scleral icterus Ear exam: PRESENT: normal external ear exam. ABSENT: bleeding, drainage Mouth exam: PRESENT: dry mucosa, neck supple Neck exam: ABSENT: thyromegaly, tracheal deviation Respiratory exam: PRESENT: clear to auscultation abraham, symmetrical, unlabored Cardiovascular exam: PRESENT: RRR. ABSENT: clicks, gallop, rubs, tachycardia Pulses: ABSENT: normal radial pulses - Radial pulses thready, normal dorsalis pedis pul - Dorsalis pedis pulses thready Vascular exam: PRESENT: pallor - With mottling. ABSENT: normal capillary refill - Capillary refill greater than 3 seconds GI/Abdominal exam: PRESENT: normal bowel sounds, soft Rectal exam: PRESENT: deferred Extremities exam: PRESENT: other - Right lower extremity paresis noted. ABSENT: joint swelling, pedal edema Musculoskeletal exam: ABSENT: ambulatory, deformity, dislocation Neurological exam: PRESENT: alert, oriented to person, oriented to place, oriented to time, oriented to situation, CN II-XII grossly intact, motor sensory deficit - Mild right hemiparesis affecting face and upper extremity moderate to severe right hemiparesis affecting right lower extremity. Psychiatric exam: PRESENT: agitated, other - Passive-aggressive Skin exam: PRESENT: dry, erythema - Marked erythema of the external genitalia and perineal region bilaterally., mottled, pallor, other - Stage II decubitus ulcer of the sacrum is noted.. ABSENT: jaundice, rash, urticaria Results Laboratory Results: 01/10/19 19:47 01/10/19 19:47 01/10/19 01/10/19 01/10/19 19:42 19:47 19:47 WBC 12.1 H RBC 3.59 L Hgb 9.6 L Hct 30.3 L MCV 84 MCH 26.8 L MCHC 31.9 L RDW 17.9 H Plt Count 395 Seg Neutrophils % 82.8 H VBG pH VBG pCO2 VBG HCO3 VBG Base Excess Sodium 136.9 L Potassium 4.3 Chloride 104 Carbon Dioxide 20 L Anion Gap 13 BUN 40 H Creatinine 3.79 H Est GFR ( Amer) 15 L Glucose 121 H Lactic Acid Calcium 8.6 Total Bilirubin 1.3 AST 15 Alkaline Phosphatase 88 Total Protein 6.1 L Albumin 3.0 L Urine Color JACQUES Urine Appearance CLOUDY Urine pH 5.0 Ur Specific [place] 1.020 Urine Protein 30 H Urine Glucose (UA) NEGATIVE Urine Ketones TRACE H Urine Blood NEGATIVE Urine Nitrite NEGATIVE Ur Leukocyte Esterase MODERATE H Urine WBC (Auto) 38 Urine RBC (Auto) 27 01/10/19 01/10/19 19:47 19:47 WBC RBC Hgb Hct MCV MCH MCHC RDW Plt Count Seg Neutrophils % VBG pH 7.21 L VBG pCO2 51.5 VBG HCO3 20.0 VBG Base Excess -7.9 Sodium Potassium Chloride Carbon Dioxide Anion Gap BUN Creatinine Est GFR ( Amer) Glucose Lactic Acid 1.8 Calcium Total Bilirubin AST Alkaline Phosphatase Total Protein Albumin Urine Color Urine Appearance Urine pH Ur Specific [place] Urine Protein Urine Glucose (UA) Urine Ketones Urine Blood Urine Nitrite Ur Leukocyte Esterase Urine WBC (Auto) Urine RBC (Auto) 01/10/19 01/10/19 19:47 19:47 Creatine Kinase 38 CK-MB (CK-2) 0.69 Troponin I < 0.012 Impressions: Chest X-Ray 01/10/19 00:00 IMPRESSION: No acute abnormality is identified. Assessment and Plan - Diagnosis (1) Severe sepsis with septic shock Is this a current diagnosis for this admission?: Yes Plan: Patient sepsis and septic shock will be treated with vasopressors utilizing Levophed and broad-spectrum antibiotics utilizing meropenem. Patient will follow closely with daily laboratory evaluations including a CBC, metabolic profile and magnesium level. Blood cultures and urine cultures are pending. (2) SEB (acute kidney injury) Is this a current diagnosis for this admission?: Yes Plan: Patient is receiving high-volume IV fluid hydration/rehydration. Her renal functions be monitored closely with daily laboratory evaluations. (3) Diarrhea Qualifiers: Diarrhea type: unspecified type Qualified Code(s): R19.7 - Diarrhea, unspecified Is this a current diagnosis for this admission?: Yes Plan: Patient's chronic diarrhea should be evaluated by a gastroenterology consultation if possible. Stool cultures and evaluations for C. difficile are pending. (4) Chronic pyelonephritis Is this a current diagnosis for this admission?: Yes Plan: Patient's chronic pyelonephritis/urinary tract infection should be evaluated by urology. Urology consultation should be obtained if available. (5) COPD (chronic obstructive pulmonary disease) Qualifiers: COPD type: unspecified COPD Qualified Code(s): J44.9 - Chronic obstructive pulmonary disease, unspecified Is this a current diagnosis for this admission?: Yes Plan: Patient be treated with a pulmonary toilet and supplemental oxygen if required for maintenance of adequate respiratory functions. - Time Time Spent with patient: 25-34 minutes Medications reviewed and adjusted accordingly: Yes Anticipated discharge: Home, Home with Homehealth, SNF - Inpatient Certification Based on my medical assessment, after consideration of the patient's comorbidities, presenting symptoms, or acuity I expect that the services needed warrant INPATIENT care.: Yes I certify that my determination is in accordance with my understanding of Medicare's requirements for reasonable and necessary INPATIENT services [42 CFR 412.3e].: Yes Medical Necessity: Significant Comorbidiites Make Outpatient Treatment Too Risky , Need Close Monitoring Due to Risk of Patient Decompensation, Need For IV Fluids, Need For Continuous Telemetry Monitoring, Need for IV Antibiotics, Risk of Complication if Not Cared For in Hospital
[2019-01-11] MEDS ORDERED: DIPHENOXYLATE HCL/ATROP SULF 2.5-0.025 MG TABLET PO PRN (06:49)
[2019-01-11] MEDS ORDERED: DIPHENOXYLATE HCL/ATROP SULF 2.5-0.025 MG TABLET PO ONE (07:15)
[2019-01-11] MEDS ORDERED: HYDROCORTISONE SOD SUCCINATE INJ/PF 100 MG/2 ML SDV IV SCH (07:15)
--- NOTE | 2019-01-11 07:18 | EKG REPORT ---
SEVERITY:- ABNORMAL ECG - SINUS RHYTHM NONSPECIFIC T ABNORMALITIES, LATERAL LEADS : Confirmed by: Mayte Aguirre 11-Jan-2019 07:18:06
[2019-01-11] MEDS ORDERED: MEROPENEM 500 MG VIAL IV SCH (08:00)
[2019-01-11] MEDS ORDERED: DEXTROSE 5%-WATER 250 ML with VASOPRESSIN 100 UNIT IV PRN ×2 (08:32)
[2019-01-11] MEDS: HYDROMORPHONE HCL INJ/PF 2 MG/ML AMPULE IV PRN ×3 (09:42→19:39)
[2019-01-11] MEDS: MEROPENEM 500 MG in NORMAL SALINE 50 ML IV SCH ×2 (09:42→18:50)
[2019-01-11] MEDS ORDERED: PANTOPRAZOLE SODIUM 40 MG VIAL IV SCH (10:00)
--- NOTE | 2019-01-11 11:51 | PDOC PROGRESS REPORT ---
Subjective Progress Note for:: 01/11/19 Subjective:: Emotionally labile going from asking appropriate questions to tearful "I'm going to ". Reason For Visit: Dehydration and ARF Physical Exam Vital Signs: Temp Pulse Resp BP Pulse Ox 98.4 F 97 11 L 81/54 L 99 01/11/19 10:00 01/11/19 10:00 01/11/19 10:46 01/11/19 10:46 01/11/19 10:46 Intake & Output 01/10/19 01/11/19 01/12/19 06:59 06:59 06:59 Intake Total 2120 1050 Output Total 300 70 Balance 1820 980 Weight 68.2 kg General appearance: PRESENT: no acute distress, cooperative, disheveled Head exam: PRESENT: atraumatic Additional Comments: Mildly tachycardic Eye exam: PRESENT: conjunctiva pink, EOMI, PERRLA. ABSENT: scleral icterus Ear exam: PRESENT: normal external ear exam Mouth exam: PRESENT: dry mucosa Neck exam: PRESENT: full ROM. ABSENT: carotid bruit, JVD, lymphadenopathy, thyromegaly Respiratory exam: PRESENT: clear to auscultation abraham, unlabored Cardiovascular exam: PRESENT: RRR, tachycardia GI/Abdominal exam: PRESENT: soft Additonal comments: Chronic diarhea Rectal exam: PRESENT: deferred Gentrourinary exam: PRESENT: indwelling catheter Additional comments: Paraplegia Musculoskeletal exam: PRESENT: normal inspection Neurological exam: PRESENT: alert, altered, awake Additional comments: Essentially parplegic Psychiatric exam: PRESENT: anxious, flat affect Skin exam: PRESENT: dry, pallor Results Laboratory Results: 01/11/19 05:00 01/11/19 05:00 01/10/19 01/10/19 01/10/19 19:42 19:47 19:47 WBC 12.1 H RBC 3.59 L Hgb 9.6 L Hct 30.3 L MCV 84 MCH 26.8 L MCHC 31.9 L RDW 17.9 H Plt Count 395 Seg Neutrophils % 82.8 H VBG pH VBG pCO2 VBG HCO3 VBG Base Excess Sodium 136.9 L Potassium 4.3 Chloride 104 Carbon Dioxide 20 L Anion Gap 13 BUN 40 H Creatinine 3.79 H Est GFR ( Amer) 15 L Glucose 121 H Lactic Acid Calcium 8.6 Magnesium Total Bilirubin 1.3 AST 15 Alkaline Phosphatase 88 Total Protein 6.1 L Albumin 3.0 L Urine Color JACQUES Urine Appearance CLOUDY Urine pH 5.0 Ur Specific [place] 1.020 Urine Protein 30 H Urine Glucose (UA) NEGATIVE Urine Ketones TRACE H Urine Blood NEGATIVE Urine Nitrite NEGATIVE Ur Leukocyte Esterase MODERATE H Urine WBC (Auto) 38 Urine RBC (Auto) 27 Stl C.difficile Tox PCR 01/10/19 01/10/19 01/11/19 19:47 19:47 00:44 WBC RBC Hgb Hct MCV MCH MCHC RDW Plt Count Seg Neutrophils % VBG pH 7.21 L VBG pCO2 51.5 VBG HCO3 20.0 VBG Base Excess -7.9 Sodium Potassium Chloride Carbon Dioxide Anion Gap BUN Creatinine Est GFR ( Amer) Glucose Lactic Acid 1.8 1.7 Calcium Magnesium Total Bilirubin AST Alkaline Phosphatase Total Protein Albumin Urine Color Urine Appearance Urine pH Ur Specific [place] Urine Protein Urine Glucose (UA) Urine Ketones Urine Blood Urine Nitrite Ur Leukocyte Esterase Urine WBC (Auto) Urine RBC (Auto) Stl C.difficile Tox PCR 01/11/19 01/11/19 01/11/19 01:20 05:00 05:00 WBC 13.9 H RBC 3.74 Hgb 9.9 L Hct 32.0 L MCV 86 MCH 26.4 L MCHC 30.9 L RDW 17.7 H Plt Count 439 Seg Neutrophils % Not Reportable VBG pH VBG pCO2 VBG HCO3 VBG Base Excess Sodium 139.8 Potassium 3.8 Chloride 109 H Carbon Dioxide 15 L Anion Gap 16 BUN 38 H Creatinine 3.67 H Est GFR ( Amer) 15 L Glucose 115 H Lactic Acid Calcium 8.3 L Magnesium Total Bilirubin 1.1 AST 18 Alkaline Phosphatase 99 Total Protein 6.2 L Albumin 3.1 L Urine Color Urine Appearance Urine pH Ur Specific [place] Urine Protein Urine Glucose (UA) Urine Ketones Urine Blood Urine Nitrite Ur Leukocyte Esterase Urine WBC (Auto) Urine RBC (Auto) Stl C.difficile Tox PCR NEGATIVE 01/11/19 01/11/19 01/11/19 05:00 05:00 10:00 WBC RBC Hgb Hct MCV MCH MCHC RDW Plt Count Seg Neutrophils % VBG pH VBG pCO2 VBG HCO3 VBG Base Excess Sodium Potassium Chloride Carbon Dioxide Anion Gap BUN Creatinine Est GFR ( Amer) Glucose Lactic Acid 1.5 2.0 Calcium Magnesium 1.3 L Total Bilirubin AST Alkaline Phosphatase Total Protein Albumin Urine Color Urine Appearance Urine pH Ur Specific [place] Urine Protein Urine Glucose (UA) Urine Ketones Urine Blood Urine Nitrite Ur Leukocyte Esterase Urine WBC (Auto) Urine RBC (Auto) Stl C.difficile Tox PCR 01/10/19 01/10/19 19:47 19:47 Creatine Kinase 38 CK-MB (CK-2) 0.69 Troponin I < 0.012 Impressions: Chest X-Ray 01/10/19 00:00 IMPRESSION: No acute abnormality is identified. Assessment & Plan - Diagnosis (1) Dehydration Is this a current diagnosis for this admission?: Yes Plan: Extreme dehydration secondary to poor PO intake. Pt has little appetite. Continue IVF. Pt and spoken to regarding PEG. They have refused. (2) Severe sepsis with septic shock Is this a current diagnosis for this admission?: Yes Plan: She has no sign of active infection. Continue meropenem until cultures are back. This seems more hypovolemic shock. She is also not hypoadrenal with a random cortisol of 44. CIRCI does not apply. (3) Acute kidney injury superimposed on chronic kidney disease Is this a current diagnosis for this admission?: Yes Plan: With CR 3.4 and baseline 1.2 she is in [place] [address]. [address]. (4) Acute metabolic encephalopathy Is this a current diagnosis for this admission?: Yes Plan: What her baseline is is not clear at the moment. (5) Diarrhea Qualifiers: Diarrhea type: functional diarrhea Qualified Code(s): K59.1 - Functional diarrhea Is this a current diagnosis for this admission?: Yes Plan: Seems to be functional. All cultures bertrand far negative. Needs GI input and PEG, which they have refused. GI not available until Monday. - Time Time Spent with patient: 35 or more minutes Total Critical Time (Minutes): 35 Medications reviewed and adjusted accordingly: Yes Anticipated discharge: Home Within: Other - When off pressors and rehydrated
[2019-01-11] MEDS: DEXTROSE 5%-WATER 250 ML with NOREPINEPHRINE BITARTRATE 4 MG IV PRN ×4 (12:56→23:08)
[2019-01-11] MEDS: HEPARIN SOD (PORCINE) 5,000 UNIT/ML 1 ML VIAL SUBCUT SCH (16:37)
--- NOTE | 2019-01-11 16:57 | RADIOLOGY REPORT (SQ) ---
EXAM DESCRIPTION: PICC INSERTION; FLUORO/CV PLACEMENT; U/S GUIDE FOR VASCULAR ACCESS COMPLETED DATE/TIME: 01/11/2019 4:03 pm REASON FOR STUDY: Poor IV access, on pressors; IV ACCESS COMPARISON: None. FLUOROSCOPY TIME: 0.2 minute. 1 images saved to PACS. TECHNIQUE: Fluoroscopic and ultrasound guided PICC placement. LIMITATIONS: None. PROCEDURE: After written consent and assessment were obtained, the patient was brought into the fluo roscopy room and placed supine on the table. Ultrasound evaluation of potential access sites were per formed. After successfully identifying a patent right basilic vein, the right arm was prepped and timothy ped in a sterile fashion along with the ultrasound probe. The entry site was anesthetized with 1% lid ocaine. A 21 gauge 7 cm needle was advanced through the skin and into the basilic vein under live ult rasound guidance. An ultrasound image was saved to PACS confirming access site. A .018 guide wire w as then inserted through the needle and into the venous system. The needle was then removed and an 11 blade scalpel was used to make a 1cm skin incision. A 5 fr peel-away sheath was advanced over the w ulises and into the venous system. A measurement was then made using the existing wire and live fluorosc opic guidance. The wire was then removed and trimmed. The PICC was advanced through the peel-away she ath and into the venous system. The peel-away sheath was removed and the catheter was adhered to the patients arm with a stat lock. The catheter was then aspirated and flushed and a sterile bandage was placed over the access site. A fluoroscopic spot image was saved to PACS confirming the catheter tip within the superior vena cava. IMPRESSION: SUCCESSFUL PLACEMENT OF A 5 FR DUAL LUMEN 33 CM PICC IN THE RIGHT BASILIC VEIN. COMMENT: Patient medication list reviewed: Yes- Quality ID# [id number]:Eligible professional attests to doc umenting in the medical record they obtained, updated, or reviewed the patient's current medications. . Quality ID 145: Final reports for procedures using fluoroscopy that document radiation exposure gifty beth, or exposure time and number of fluorographic images (if radiation exposure indices are not avail able) Quality ID #76: The patient was prepped and draped using maximum sterile barrier technique including cap, mask, sterile gown, sterile gloves, a large sterile sheet, hand hygiene, and 2% Chlorhexidine fo r cutaneous antisepsis. When ultrasound is used, sterile ultrasound techniques are followed requiring sterile gel and sterile probes. TECHNICAL DOCUMENTATION: JOB ID: [id number] [employer]- All Rights Reserved rev-08/11 Reading location - IP/workstation name: [email or web address]
[2019-01-11] MEDS ORDERED: CALCIUM GLUCONATE 1000 MG/10 ML INJ IV ONE (17:47)
--- NOTE | 2019-01-11 17:47 | PDOC CONSULTATION ---
Consultation Consult Date: 01/11/19 Provider Consulted: Marcus CHEEMA Consult reason:: SEB and insertion of PICC line. History of Present Illness Admission Date/PCP: 01/11/19 00:02 LETA PRIEST DO History of Present Illness: KAREN MALDONADO is a 58 year old female with a previous history of hypertension, COPD and chronic diarrhea who presented to the emergency room with acute weakness Of 1 days duration. She had just recently been discharged from the hospital for similar presentation on the of this presenting with severe weakness hypotension in the face of persistent copious diarrhea. She was found to be hypotensive. She has been on IV fluids and and initially were also on pressors and admitted for further evaluation and management. Currently I am seeing patient in the ICU where she is quite lethargic and having very labile emotional state. Her is by the bedside who is very quiet and rather mute when asked any questions. He seems to be unable to help me with gathering of the history. Therefore chart review was done and discussions were done with the treating nurse.Apparently she got a history of aortic aneurysm repair in the past as well as history of CVA. Review of her medications revealed that she is on on multiple NSAIDs for reasons are not clear. She denies any history of alcoholism or drug usage. Labs and medications were reviewed that shows her current creatinine is 3+ as compared to a creatinine of 0.8 earlier this month. UA reveals that she has UTI. Reviewed CT scan done earlier this month which has shown some left renal atrophy with some jacinto- nephric stranding. Patient has a right femoral catheter which would like to be taken off by the nutrition services assistant because of her high risk of infection. Patient however refuses internal jugular line because of apparent recent traumatic issues when a line like that was placed recently. Past Medical History Cardiac Medical History: Reports: Hyperlipidemia, Hypertension-primary, Other - History of sub-renal abdominal aortic aneurysm Denies: Atrial Fibrillation, Coronary Artery Disease, Myocardial Infarction Pulmonary Medical History: Reports: Bronchitis, Chronic Obstructive Pulmonary Disease (COPD), Pneumonia EENT Medical History: Denies: Cataracts, Ears - Hearing aids Neurological Medical History: Reports: Ischemic CVA Denies: Hemorrhagic CVA, Seizures Endocrine Medical History: Denies: Diabetes Mellitus Type 1, Diabetes Mellitus Type 2, Hyperthyroidism, Hypothyroidism Renal/ Medical History: Reports: Other - Chronic kidney infections Denies: Nephrolithiasis Malignancy Medical History: Reports: Breast Cancer GI Medical History: Reports: Diverticulitis, Other - Chronic diarrhea Denies: Cirrhosis, Crohn's Disease, Hepatitis, Ulcerative Colitis Musculoskeltal Medical History: Reports: Arthritis Denies: Gout Skin Medical History: Reports: Other - Decubitus ulcers Denies: Eczema, Psoriasis Psychiatric Medical History: Reports: Depression, Substance Abuse, Tobacco Dependency Denies: Alcohol Dependency Traumatic Medical History: Denies: Gunshot Wound, Pneumothorax Infectious Medical History: Reports: HIV Past Surgical History Past Surgical History: Reports: Section - X3, Cholecystectomy, Hysterectomy, Tubal Ligation Social History Lives with: Spouse/Significant other Smoking Status: Current Every Day Smoker Electronic Cigarette use?: No Frequency of Alcohol Use: None Hx Recreational Drug Use: No Drugs: None Hx Prescription Drug Abuse: Yes - Advance Directive Resuscitation Status: Full Code Family History Parental Family History Reviewed: No - Unable to give proper history. Children Family History Reviewed: No Sibling(s) Family History Reviewed.: No Medication/Allergy Home Medications: Lisinopril [Prinivil 10 mg Tablet] 10 mg PO DAILY 12/27/18 Oxycodone HCl/Acetaminophen [Percocet 10-325 mg Tablet] 1 each PO Q6HP PRN 12/27/18 Atorvastatin Calcium [Lipitor 40 mg Tablet] 40 mg PO QHS 01/11/19 Diclofenac Sodium [Voltaren] 1 applic TP QIDP PRN 01/11/19 Fluticasone/Salmeterol [Advair 100-50 Diskus 14 Dose/Diskus] 1 inh IH Q12 01/11/19 Naproxen 500 mg PO Q12 01/11/19 Pantoprazole Sodium [Protonix [address] Tablet] 40 mg PO QAM 01/11/19 Allergies/Adverse Reactions: No Known Allergies Allergy (Verified 05/15/18 10:38) Review of Systems Constitutional: PRESENT: anorexia, fatigue, weakness. ABSENT: chills, fever(s), headache(s), night sweats Nose, Mouth, and Throat: ABSENT: mouth pain, sore throat Cardiovascular: ABSENT: chest pain, dyspnea on exertion, edema, orthropnea, palpitations Respiratory: ABSENT: dyspnea, hemoptysis Gastrointestinal: PRESENT: bloating, diarrhea. ABSENT: abdominal pain, constipation, dysphagia, heartburn, hematemesis Genitourinary: ABSENT: dysuria, hematuria Musculoskeletal: ABSENT: deformity, joint swelling Integumentary: ABSENT: lesions, pruritus, rash Neurological: PRESENT: abnormal speech, confusion, memory loss. ABSENT: abnormal movements, convulsions, focal weakness Hematologic/Lymphatic: ABSENT: easy bruising Physical Exam Vital Signs: Temp Pulse Resp BP Pulse Ox 98.8 F 106 H 20 95/79 L 99 01/11/19 16:00 01/11/19 16:00 01/11/19 17:00 01/11/19 16:58 01/11/19 17:00 Intake & Output 01/10/19 01/11/19 01/12/19 06:59 06:59 06:59 Intake Total 2120 2068 Output Total 300 540 Balance 1820 1528 Weight 68.2 kg 68.2 kg General appearance: PRESENT: no acute distress Eye exam: PRESENT: EOMI, PERRLA. ABSENT: scleral icterus Ear exam: PRESENT: normal external ear exam Mouth exam: PRESENT: neck supple. ABSENT: moist Neck exam: ABSENT: meningismus, tenderness, thyromegaly, tracheal deviation Respiratory exam: PRESENT: clear to auscultation abraham, decreased breath sounds. ABSENT: crackles Cardiovascular exam: PRESENT: +S1, +S2 GI/Abdominal exam: PRESENT: normal bowel sounds, soft. ABSENT: organomegaly, rebound, tenderness Extremities exam: ABSENT: pedal edema Neurological exam: PRESENT: altered Psychiatric exam: PRESENT: anxious Skin exam: PRESENT: normal color. ABSENT: erythema, mottled, rash Results Laboratory Results: 01/11/19 05:00 01/11/19 05:00 01/10/19 01/10/19 01/10/19 19:42 19:47 19:47 WBC 12.1 H RBC 3.59 L Hgb 9.6 L Hct 30.3 L MCV 84 MCH 26.8 L MCHC 31.9 L RDW 17.9 H Plt Count 395 Seg Neutrophils % 82.8 H VBG pH VBG pCO2 VBG HCO3 VBG Base Excess Sodium 136.9 L Potassium 4.3 Chloride 104 Carbon Dioxide 20 L Anion Gap 13 BUN 40 H Creatinine 3.79 H Est GFR ( Amer) 15 L Glucose 121 H Lactic Acid Calcium 8.6 Magnesium Total Bilirubin 1.3 AST 15 Alkaline Phosphatase 88 Total Protein 6.1 L Albumin 3.0 L Urine Color JACQUES Urine Appearance CLOUDY Urine pH 5.0 Ur Specific [place] 1.020 Urine Protein 30 H Urine Glucose (UA) NEGATIVE Urine Ketones TRACE H Urine Blood NEGATIVE Urine Nitrite NEGATIVE Ur Leukocyte Esterase MODERATE H Urine WBC (Auto) 38 Urine RBC (Auto) 27 Stl C.difficile Tox PCR 01/10/19 01/10/19 01/11/19 19:47 19:47 00:44 WBC RBC Hgb Hct MCV MCH MCHC RDW Plt Count Seg Neutrophils % VBG pH 7.21 L VBG pCO2 51.5 VBG HCO3 20.0 VBG Base Excess -7.9 Sodium Potassium Chloride Carbon Dioxide Anion Gap BUN Creatinine Est GFR ( Amer) Glucose Lactic Acid 1.8 1.7 Calcium Magnesium Total Bilirubin AST Alkaline Phosphatase Total Protein Albumin Urine Color Urine Appearance Urine pH Ur Specific [place] Urine Protein Urine Glucose (UA) Urine Ketones Urine Blood Urine Nitrite Ur Leukocyte Esterase Urine WBC (Auto) Urine RBC (Auto) Stl C.difficile Tox PCR 01/11/19 01/11/19 01/11/19 01:20 05:00 05:00 WBC 13.9 H RBC 3.74 Hgb 9.9 L Hct 32.0 L MCV 86 MCH 26.4 L MCHC 30.9 L RDW 17.7 H Plt Count 439 Seg Neutrophils % Not Reportable VBG pH VBG pCO2 VBG HCO3 VBG Base Excess Sodium 139.8 Potassium 3.8 Chloride 109 H Carbon Dioxide 15 L Anion Gap 16 BUN 38 H Creatinine 3.67 H Est GFR ( Amer) 15 L Glucose 115 H Lactic Acid Calcium 8.3 L Magnesium Total Bilirubin 1.1 AST 18 Alkaline Phosphatase 99 Total Protein 6.2 L Albumin 3.1 L Urine Color Urine Appearance Urine pH Ur Specific [place] Urine Protein Urine Glucose (UA) Urine Ketones Urine Blood Urine Nitrite Ur Leukocyte Esterase Urine WBC (Auto) Urine RBC (Auto) Stl C.difficile Tox PCR NEGATIVE 01/11/19 01/11/19 01/11/19 05:00 05:00 10:00 WBC RBC Hgb Hct MCV MCH MCHC RDW Plt Count Seg Neutrophils % VBG pH VBG pCO2 VBG HCO3 VBG Base Excess Sodium Potassium Chloride Carbon Dioxide Anion Gap BUN Creatinine Est GFR ( Amer) Glucose Lactic Acid 1.5 2.0 Calcium Magnesium 1.3 L Total Bilirubin AST Alkaline Phosphatase Total Protein Albumin Urine Color Urine Appearance Urine pH Ur Specific [place] Urine Protein Urine Glucose (UA) Urine Ketones Urine Blood Urine Nitrite Ur Leukocyte Esterase Urine WBC (Auto) Urine RBC (Auto) Stl C.difficile Tox PCR 01/10/19 01/10/19 19:47 19:47 Creatine Kinase 38 CK-MB (CK-2) 0.69 Troponin I < 0.012 Impressions: Chest X-Ray 01/10/19 00:00 IMPRESSION: No acute abnormality is identified. Guidance Fluoroscopy 01/11/19 00:00 IMPRESSION: SUCCESSFUL PLACEMENT OF A 5 FR DUAL LUMEN 33 CM PICC IN THE RIGHT BASILIC VEIN. Interventional Vascular Procedure 01/11/19 00:00 IMPRESSION: SUCCESSFUL PLACEMENT OF A 5 FR DUAL LUMEN 33 CM PICC IN THE RIGHT BASILIC VEIN. PICC Line Insertion 01/11/19 00:00 IMPRESSION: SUCCESSFUL PLACEMENT OF A 5 FR DUAL LUMEN 33 CM PICC IN THE RIGHT BASILIC VEIN. Assessment & Plan - Diagnosis (1) Dehydration Is this a current diagnosis for this admission?: Yes Plan: Recommend IV fluid resuscitation besides the pressor agents. (2) Diarrhea Qualifiers: Diarrhea type: functional diarrhea Qualified Code(s): K59.1 - Functional diarrhea Is this a current diagnosis for this admission?: Yes Plan: Apparently chronic. Unsure of all evaluations that has been done so far. Recommend gastroenterology consult. (3) Severe sepsis with septic shock Is this a current diagnosis for this admission?: Yes Plan: Clinical presentation is indicative of septic shock along with her leukocytosis and left shift.Currently on antibiotics and pressor agents. (4) SEB (acute kidney injury) Is this a current diagnosis for this admission?: Yes Plan: Nonoliguric at the moment. Patient has not no history of previous kidney disease as seen by her last creatinine of 0.8. However CT scan shows that she has some left renal atrophy and some perinephric stranding indicative of previous pyelonephritis. (5) Acute UTI (urinary tract infection) Plan: On antibiotics. (6) Metabolic acidosis Plan: Normal lactate. Continue with fluids.
[2019-01-11] MEDS: PHARMACY COMMUNICATION ORDER MC SCH (18:48)
[2019-01-11] MEDS ORDERED: CALCIUM GLUCONATE 2,000 MG in DEXTROSE 5%-WATER 100 ML IV ONE (19:00)
[2019-01-11] MEDS ORDERED: (PENDING PHARMACY ID) (Fluticasone/Salmeterol 1 INH) IH SCH (22:00)
[2019-01-12] MEDS: HYDROMORPHONE HCL INJ/PF 2 MG/ML AMPULE IV PRN ×3 (01:34→18:28)
[2019-01-12] MEDS: MEROPENEM 500 MG in NORMAL SALINE 50 ML IV SCH ×3 (04:00→17:08)
[2019-01-12] MEDS: RINGERS SOLUTION,LACTATED 1,000 ML IV PRN ×2 (04:00→14:27)
[2019-01-12 07:02] LABS: HEMATOCRIT 29.1 % (36.0-47.0); HEMOGLOBIN 9.5 g/dL (12.0-15.5); MEAN CORPUSCULAR HEMOGLOBIN 26.8 pg (27.0-33.4); MEAN CORPUSCULAR HGB CONC 32.5 g/dL (32.0-36.0); MEAN CORPUSCULAR VOLUME 83 fl (80-97); RED BLOOD COUNT 3.52 10^6/uL (3.72-5.28); RED CELL DISTRIBUTION WIDTH 17.4 % (11.5-14.0); WHITE BLOOD COUNT 9.2 10^3/uL (4.0-10.5)
[2019-01-12 07:20] LABS: ALBUMIN 2.6 g/dL (3.5-5.0); ALKALINE PHOSPHATASE 80 U/L (38-126); ANION GAP 12 (5-19); ASPARTATE AMINO TRANSFERASE 28 U/L (14-36); BILIRUBIN,DIRECT 0.5 mg/dL (0.0-0.4); BILIRUBIN,TOTAL 0.5 mg/dL (0.2-1.3); BLOOD UREA NITROGEN 34 mg/dL (7-20); CALCIUM 8.8 mg/dL (8.4-10.2); CARBON DIOXIDE 19 mmol/L (22-30); CHLORIDE 106 mmol/L (98-107); GLUCOSE 91 mg/dL (75-110); POTASSIUM 3.7 mmol/L (3.6-5.0); TOTAL PROTEIN 5.3 g/dL (6.3-8.2)
[2019-01-12] MEDS: DEXTROSE 5%-WATER 250 ML with NOREPINEPHRINE BITARTRATE 4 MG IV PRN ×2 (07:30)
[2019-01-12 07:55] LABS: ABSOLUTE LYMPHOCYTES# (MANUAL) 1.4 10^3/uL (0.5-4.7); ABSOLUTE MONOCYTES # (MANUAL) 0.6 10^3/uL (0.1-1.4); BAND NEUTROPHILS % (MANUAL) 6 % (3-5); BASOPHILS % (MANUAL) 0 % (0-2); EOSINOPHILS % (MANUAL) 0 % (0-6); LYMPHOCYTES % (MANUAL) 15 % (13-45); MONOCYTES % (MANUAL) 7 % (3-13); SEGMENTED NEUTROPHILS % (MAN) 72 % (42-78); TOTAL CELLS COUNTED 100
[2019-01-12 07:57] LABS: ANISOCYTOSIS 1+; PLATELET CLUMPS PRESENT; PLATELET COMMENT ADEQUATE; TOXIC GRANULATION 1+; TOXIC VACUOLATION PRESENT
[2019-01-12 07:58] LABS: PLATELET COUNT 389 10^3/uL (150-450)
[2019-01-12] MEDS ORDERED: INFLUENZA QUAD (6MOS+) 2019-20 VAC 0.5 ML SYR IM ONE (08:00)
[2019-01-12] MEDS: ATORVASTATIN CALCIUM 40 MG TABLET PO SCH (08:51)
[2019-01-12] MEDS: HEPARIN SOD (PORCINE) 5,000 UNIT/ML 1 ML VIAL SUBCUT SCH ×2 (08:51→14:25)
[2019-01-12] MEDS: NORMAL SALINE 10 ML SDV (SCHEDULED) IV SCH ×2 (08:52→09:12)
[2019-01-12] MEDS: PANTOPRAZOLE SODIUM 40 MG TABLET.DR PO SCH (09:04)
[2019-01-12] MEDS: FLUTICASONE/VILANTEROL 100-25 MCG/DOSE IH SCH (09:14)
--- NOTE | 2019-01-12 12:56 | PDOC PROGRESS REPORT ---
Subjective Progress Note for:: 01/12/19 Subjective:: Pt occasionally is tearful, emotionally labile as yesterday. Reason For Visit: SEVERE SEPSIS WITH SEPTIC SHOCK Physical Exam Vital Signs: Temp Pulse Resp BP Pulse Ox 98.8 F 96 12 108/67 98 01/12/19 12:00 01/12/19 12:00 01/12/19 12:00 01/12/19 12:00 01/12/19 12:00 Intake & Output 01/11/19 01/12/19 01/13/19 06:59 06:59 06:59 Intake Total 2120 3555 303 Output Total 300 1220 220 Balance 1820 2335 83 Weight 68.2 kg 75.1 kg General appearance: PRESENT: no acute distress, disheveled, hard of hearing Head exam: ABSENT: atraumatic Additional Comments: Face appears pineda. Eye exam: PRESENT: conjunctiva pink, EOMI, PERRLA. ABSENT: scleral icterus Ear exam: PRESENT: normal external ear exam Mouth exam: PRESENT: moist, tongue midline Respiratory exam: PRESENT: clear to auscultation abraham, unlabored Cardiovascular exam: PRESENT: RRR Pulses: PRESENT: normal dorsalis pedis pul, +2 pedal pulses bilateral GI/Abdominal exam: PRESENT: normal bowel sounds, soft. ABSENT: distended, g uarding, mass, organolmegaly, rebound, tenderness Rectal exam: PRESENT: deferred Extremities exam: PRESENT: pedal edema Musculoskeletal exam: PRESENT: full ROM, normal inspection Additional comments: Feet slightly mottled with levophed Neurological exam: PRESENT: alert, awake, oriented to person, oriented to place, oriented to time Results Laboratory Results: 01/12/19 06:30 01/12/19 06:30 01/12/19 01/12/19 06:30 06:30 WBC 9.2 RBC 3.52 L Hgb 9.5 L Hct 29.1 L MCV 83 MCH 26.8 L MCHC 32.5 RDW 17.4 H Plt Count 389 Seg Neutrophils % Not Reportable Sodium 137.1 Potassium 3.7 Chloride 106 Carbon Dioxide 19 L Anion Gap 12 BUN 34 H Creatinine 1.87 H Est GFR ( Amer) 33 L Glucose 91 Calcium 8.8 Total Bilirubin 0.5 AST 28 Alkaline Phosphatase 80 Total Protein 5.3 L Albumin 2.6 L 01/10/19 01/10/19 19:47 19:47 Creatine Kinase 38 CK-MB (CK-2) 0.69 Troponin I < 0.012 Impressions: Chest X-Ray 01/10/19 00:00 IMPRESSION: No acute abnormality is identified. Guidance Fluoroscopy 01/11/19 00:00 IMPRESSION: SUCCESSFUL PLACEMENT OF A 5 FR DUAL LUMEN 33 CM PICC IN THE RIGHT BASILIC VEIN. Interventional Vascular Procedure 01/11/19 00:00 IMPRESSION: SUCCESSFUL PLACEMENT OF A 5 FR DUAL LUMEN 33 CM PICC IN THE RIGHT BASILIC VEIN. PICC Line Insertion 01/11/19 00:00 IMPRESSION: SUCCESSFUL PLACEMENT OF A 5 FR DUAL LUMEN 33 CM PICC IN THE RIGHT BASILIC VEIN. Assessment & Plan - Diagnosis (1) Dehydration Is this a current diagnosis for this admission?: Yes Plan: Nearly resolved. Cr at 1.4 baseline .8. Face pineda and levophed coming off. IVF rate down to 100/hr. (2) Acute kidney injury superimposed on chronic kidney disease Is this a current diagnosis for this admission?: Yes Plan: Hope to get back to baseline. (3) Acute metabolic encephalopathy Is this a current diagnosis for this admission?: Yes Plan: I am not sure what her baseline is, but family thinks she is close. (4) Diarrhea Qualifiers: Diarrhea type: functional diarrhea Qualified Code(s): K59.1 - Functional diarrhea Is this a current diagnosis for this admission?: Yes Plan: The biggest chronic problem. Unfortunately patient and back refusing PEG or placement for rehab. I have, again, stressed that to go back home and do the same, she will likely be back. - Time Time Spent with patient: 35 Time Spent with patient: 35 or more minutes Total Critical Time (Minutes): 35 Medications reviewed and adjusted accordingly: Yes Anticipated discharge: Other - Unknown, home now but daughter claims she will have POA soon. Within: within 72 hours - Inpatient Certification Based on my medical assessment, after consideration of the patient's comorbidities, presenting symptoms, or acuity I expect that the services needed warrant INPATIENT care.: Yes I certify that my determination is in accordance with my understanding of Medicare's requirements for reasonable and necessary INPATIENT services [42 CFR 412.3e].: Yes Medical Necessity: Failure to Improve With Outpatient Therapy, Significant Comorbidiites Make Outpatient Treatment Too Risky, Need Close Monitoring Due to Risk of Patient Decompensation, Need For IV Fluids
[2019-01-12] MEDS ORDERED: ONDANSETRON HCL INJ/PF 4 MG/2 ML SDV ONE (14:36)
[2019-01-12] MEDS ORDERED: ONDANSETRON HCL INJ/PF 4 MG/2 ML SDV IV ONE (15:00)
[2019-01-12] MEDS: PHARMACY COMMUNICATION ORDER MC SCH (17:09)
[2019-01-13] MEDS: RINGERS SOLUTION,LACTATED 1,000 ML IV PRN ×3 (01:14→16:13)
[2019-01-13] MEDS: HEPARIN SOD (PORCINE) 5,000 UNIT/ML 1 ML VIAL SUBCUT SCH ×4 (01:50→21:36)
[2019-01-13] MEDS: ATORVASTATIN CALCIUM 40 MG TABLET PO SCH ×2 (01:50→21:38)
[2019-01-13] MEDS: NORMAL SALINE 10 ML SDV (SCHEDULED) IV SCH ×3 (01:51→21:39)
[2019-01-13] MEDS: ONDANSETRON HCL INJ/PF 4 MG/2 ML SDV IV PRN ×2 (01:53→12:04)
[2019-01-13] MEDS: HYDROMORPHONE HCL INJ/PF 2 MG/ML AMPULE IV PRN ×4 (02:10→21:35)
[2019-01-13] MEDS: MEROPENEM 500 MG in NORMAL SALINE 50 ML IV SCH ×2 (07:17→10:06)
[2019-01-13 08:34] LABS: ABSOLUTE LYMPHOCYTES (AUTO) 0.9 10^3/uL (0.5-4.7); ABSOLUTE MONOCYTES (AUTO) 0.6 10^3/uL (0.1-1.4); ABSOLUTE NEUT (AUTO) 5.7 10^3/uL (1.7-8.2); BASOPHILS % (AUTO) 0.1 % (0-2); EOSINOPHILS % (AUTO) 0.3 % (0-6); HEMATOCRIT 26.9 % (36.0-47.0); HEMOGLOBIN 8.9 g/dL (12.0-15.5); LYMPHOCYTES % (AUTO) 12.4 % (13-45); MEAN CORPUSCULAR HEMOGLOBIN 26.7 pg (27.0-33.4); MEAN CORPUSCULAR HGB CONC 33.1 g/dL (32.0-36.0); MEAN CORPUSCULAR VOLUME 81 fl (80-97); MONOCYTES % (AUTO) 8.2 % (3-13); PLATELET COUNT 312 10^3/uL (150-450); RED BLOOD COUNT 3.33 10^6/uL (3.72-5.28); RED CELL DISTRIBUTION WIDTH 17.4 % (11.5-14.0); TOTAL CELLS COUNTED % (AUTO) 100 %; WHITE BLOOD COUNT 7.2 10^3/uL (4.0-10.5)
[2019-01-13 08:41] LABS: ANION GAP 11 (5-19); BLOOD UREA NITROGEN 33 mg/dL (7-20); CARBON DIOXIDE 25 mmol/L (22-30); CHLORIDE 103 mmol/L (98-107); GLUCOSE 72 mg/dL (75-110); POTASSIUM 3.3 mmol/L (3.6-5.0)
[2019-01-13] MEDS: FLUTICASONE/VILANTEROL 100-25 MCG/DOSE IH SCH (10:07)
[2019-01-13] MEDS: PANTOPRAZOLE SODIUM 40 MG TABLET.DR PO SCH (10:07)
--- NOTE | 2019-01-13 10:28 | PDOC PROGRESS REPORT ---
Subjective Progress Note for:: 01/13/19 Subjective:: Patient moaning in pain from rectal tube. Still having much diarrhea. Reason For Visit: SEVERE SEPSIS WITH SEPTIC SHOCK Physical Exam Vital Signs: Temp Pulse Resp BP Pulse Ox 98.1 F 115 H 10 L 98/78 L 95 01/13/19 06:00 01/12/19 18:00 01/12/19 18:00 01/13/19 06:59 01/13/19 07:00 Intake & Output 01/12/19 01/13/19 01/14/19 06:59 06:59 06:59 Intake Total 3555 2511 50 Output Total 1220 685 Balance 2335 1826 50 Weight 75.1 kg 74 kg General appearance: PRESENT: disheveled, mild distress Head exam: PRESENT: atraumatic, normocephalic Eye exam: PRESENT: conjunctiva pink, EOMI, PERRLA. ABSENT: scleral icterus Ear exam: PRESENT: normal external ear exam Mouth exam: PRESENT: moist, tongue midline Respiratory exam: PRESENT: clear to auscultation abraham, unlabored Cardiovascular exam: PRESENT: RRR. ABSENT: diastolic murmur, rubs, systolic murmur GI/Abdominal exam: PRESENT: soft Rectal exam: PRESENT: deferred Gentrourinary exam: PRESENT: indwelling catheter Extremities exam: PRESENT: tenderness Musculoskeletal exam: PRESENT: normal inspection Neurological exam: PRESENT: alert, altered Psychiatric exam: PRESENT: agitated, anxious Skin exam: PRESENT: normal color Results Laboratory Results: 01/13/19 07:55 01/13/19 07:55 01/13/19 01/13/19 07:55 07:55 WBC 7.2 RBC 3.33 L Hgb 8.9 L Hct 26.9 L MCV 81 MCH 26.7 L MCHC 33.1 RDW 17.4 H Plt Count 312 Seg Neutrophils % 79.0 H Sodium 138.5 Potassium 3.3 L Chloride 103 Carbon Dioxide 25 Anion Gap 11 BUN 33 H Creatinine 1.45 H Est GFR ( Amer) 45 L Glucose 72 L Calcium 9.0 01/10/19 19:42 Catheterized Urine Urine Culture - Final Enterococcus Faecalis(Group D) 01/10/19 01/10/19 19:47 19:47 Creatine Kinase 38 CK-MB (CK-2) 0.69 Troponin I < 0.012 Impressions: Chest X-Ray 01/10/19 00:00 IMPRESSION: No acute abnormality is identified. Guidance Fluoroscopy 01/11/19 00:00 IMPRESSION: SUCCESSFUL PLACEMENT OF A 5 FR DUAL LUMEN 33 CM PICC IN THE RIGHT BASILIC VEIN. Interventional Vascular Procedure 01/11/19 00:00 IMPRESSION: SUCCESSFUL PLACEMENT OF A 5 FR DUAL LUMEN 33 CM PICC IN THE RIGHT BASILIC VEIN. PICC Line Insertion 01/11/19 00:00 IMPRESSION: SUCCESSFUL PLACEMENT OF A 5 FR DUAL LUMEN 33 CM PICC IN THE RIGHT BASILIC VEIN. Assessment & Plan - Diagnosis (1) Dehydration Is this a current diagnosis for this admission?: Yes Plan: Resolved. Decrease IVF. Off pressors since yesterday. Stable for transfer to floor. (2) Acute kidney injury superimposed on chronic kidney disease Is this a current diagnosis for this admission?: Yes Plan: GFR nor 37. This is impoved and another reason to decrease IVF (3) Acute metabolic encephalopathy Is this a current diagnosis for this admission?: Yes Plan: Still present but I am not sure how much different it is from baseline. Daughter (Yamilet) persuing POA status. (4) Diarrhea Qualifiers: Diarrhea type: functional diarrhea Qualified Code(s): K59.1 - Functional diarrhea Is this a current diagnosis for this admission?: Yes Plan: Still present, unknown etiology. Needs GI input. Lomotil having minimal effect. - Time Time Spent with patient: 35 or more minutes Total Critical Time (Minutes): 35 - Spoke to at length Medications reviewed and adjusted accordingly: Yes Anticipated discharge: SNF Within: Other - After GI input. - Inpatient Certification Based on my medical assessment, after consideration of the patient's comorbidities, presenting symptoms, or acuity I expect that the services needed warrant INPATIENT care.: Yes I certify that my determination is in accordance with my understanding of Medicare's requirements for reasonable and necessary INPATIENT services [42 CFR 412.3e].: Yes Medical Necessity: Failure to Improve With Outpatient Therapy, Significant Comorbidiites Make Outpatient Treatment Too Risky, Need Close Monitoring Due to Risk of Patient Decompensation, Need For IV Fluids
[2019-01-13] MEDS ORDERED: AMPICILLIN TRIHYD PO SCH (12:00)
[2019-01-13] MEDS ORDERED: HYDROMORPHONE HCL INJ/PF 2 MG/ML AMPULE IV PRN ×2 (15:36→17:12)
[2019-01-13] MEDS: AMPICILLIN TRIHYD 500 MG CAPSULE PO SCH ×2 (16:18→21:45)
[2019-01-13] MEDS ORDERED: TIZANIDINE HCL 4 MG TABLET PO SCH (16:30)
[2019-01-13] MEDS: PROMETHAZINE HCL INJ 25 MG/1 ML VIAL IV PRN (18:10)
[2019-01-13] MEDS: MORPHINE SULFATE 10 MG/ML INJ IV PRN (18:10)
[2019-01-13] MEDS: PHARMACY COMMUNICATION ORDER MC SCH (18:11)
[2019-01-13] MEDS: MORPHINE SULFATE SR 15 MG TABLET PO SCH (19:01)
[2019-01-13] MEDS: GABAPENTIN 300 MG CAPSULE PO SCH ×2 (19:01→21:39)
[2019-01-13] MEDS: TIZANIDINE HCL 4 MG TABLET PO SCH (21:38)
[2019-01-14] MEDS: PROMETHAZINE HCL INJ 25 MG/1 ML VIAL IV PRN (00:18)
[2019-01-14] MEDS: MORPHINE SULFATE 10 MG/ML INJ IV PRN ×2 (00:18→20:13)
[2019-01-14] MEDS: MORPHINE SULFATE SR 15 MG TABLET PO SCH ×2 (06:45→18:30)
[2019-01-14] MEDS: TIZANIDINE HCL 4 MG TABLET PO SCH ×3 (06:45→21:25)
[2019-01-14] MEDS: HEPARIN SOD (PORCINE) 5,000 UNIT/ML 1 ML VIAL SUBCUT SCH ×3 (06:45→21:24)
[2019-01-14] MEDS: GABAPENTIN 300 MG CAPSULE PO SCH ×3 (06:45→21:25)
[2019-01-14] MEDS ORDERED: MAGNESIUM SULFATE/D5W 1 GM/100 ML RTUPB IV ONE (08:30)
[2019-01-14] MEDS ORDERED: POTASSIUM CHLORIDE 10 MEQ CAPSULE.ER PO ONE (08:30)
[2019-01-14] MEDS: HYDROMORPHONE HCL INJ/PF 2 MG/ML AMPULE IV PRN ×3 (08:48→15:15)
[2019-01-14] MEDS: PANTOPRAZOLE SODIUM 40 MG TABLET.DR PO SCH (08:51)
[2019-01-14] MEDS: FLUTICASONE/VILANTEROL 100-25 MCG/DOSE IH SCH (09:33)
[2019-01-14] MEDS: AMPICILLIN TRIHYD 500 MG CAPSULE PO SCH ×2 (09:33→21:36)
[2019-01-14] MEDS: NORMAL SALINE 10 ML SDV (SCHEDULED) IV SCH ×2 (09:35→21:27)
--- NOTE | 2019-01-14 12:31 | PDOC CONSULTATION ---
Consultation Consult Date: 01/14/19 Provider Consulted: GEORGIANA MANUEL History of Present Illness Admission Date/PCP: 01/11/19 00:02 LETA PRIEST DO Patient complains of: Low back pain History of Present Illness: KAREN MALDONADO is a 58 year old female Who is a fairly poor historian at bedside with her who also is unable to give complete adequate history. Patient complains of low back pain she states that has been ongoing for the past few weeks worsened since being admitted and has been relatively unchanged since admission to the hospital. Patient has history of right hemiparesis. Notes numbness and tingling down the right leg. Pain worse with any attempted motion. Pain 4/10. Past Medical History Cardiac Medical History: Reports: Hyperlipidema, Hypertension, Other - History of sub-renal abdominal aortic aneurysm Denies: Atrial Fibrillation, Congestive Heart Failure, Coronary Artery Disease, Myocardial Infarction Pulmonary Medical History: Reports: Bronchitis, Chronic Obstructive Pulmonary Disease (COPD), Pneumonia EENT Medical History: Denies: Cataracts, Ears - Hearing aids Neurological Medical History: Reports: Ischemic CVA Denies: Hemorrhagic CVA, Seizures Endocrine Medical History: Denies: Diabetes Mellitus Type 1, Diabetes Mellitus Type 2, Hyperthyroidism, Hypothyroidism Renal/ Medical History: Reports: Other - Chronic kidney infections Denies: Chronic Kidney Disease, Nephrolithiasis Malignancy Medical History: Reports: Breast Cancer GI Medical History: Reports: Diverticulitis, Other - Chronic diarrhea Denies: Cirrhosis, Crohn's Disease, Hepatitis, Ulcerative Colitis Musculoskeltal Medical History: Reports: Arthritis Denies: Gout Skin Medical History: Reports: Other - Decubitus ulcers Denies: Eczema, Psoriasis Psychiatric Medical History: Reports: Depression, Substance Abuse, Tobacco Dependency Denies: Alcohol Dependency Traumatic Medical History: Denies: Gunshot Wound, Pneumothorax Hematology: Denies: Anemia, Sickle Cell Disease, Bleeding Tendencies Infectious Medical History: Reports: HIV Past Surgical History Past Surgical History: Reports: Section - X3, Cholecystectomy, Hysterectomy, Tubal Ligation Social History Lives with: Spouse/Significant other Smoking Status: Current Every Day Smoker Electronic Cigarette use?: No Frequency of Alcohol Use: None Hx Recreational Drug Use: No Drugs: None Hx Prescription Drug Abuse: Yes - Advance Directive Resuscitation Status: Full Code Family History Family History: COPD, Hypertension Parental Family History Reviewed: No Children Family History Reviewed: No Sibling(s) Family History Reviewed.: No Medication/Allergy Home Medications: Lisinopril [Prinivil 10 mg Tablet] 10 mg PO DAILY 12/27/18 Oxycodone HCl/Acetaminophen [Percocet 10-325 mg Tablet] 1 each PO Q6HP PRN 12/27/18 Atorvastatin Calcium [Lipitor 40 mg Tablet] 40 mg PO QHS 01/11/19 Diclofenac Sodium [Voltaren] 1 applic TP QIDP PRN 01/11/19 Fluticasone/Salmeterol [Advair 100-50 Diskus 14 Dose/Diskus] 1 inh IH Q12 01/11/19 Naproxen 500 mg PO Q12 01/11/19 Pantoprazole Sodium [Protonix [address] Tablet] 40 mg PO QAM 01/11/19 Allergies/Adverse Reactions: No Known Allergies Allergy (Verified 05/15/18 10:38) Review of Systems ROS unobtainable: Due to mental status Constitutional: PRESENT: as per HPI Musculoskeletal: PRESENT: muscle weakness Neurological: PRESENT: as per HPI Physical Exam Vital Signs: Temp Pulse Resp BP Pulse Ox 98.0 F 71 16 90/52 L 92 01/14/19 11:06 01/14/19 11:06 01/14/19 11:06 01/14/19 11:06 01/14/19 11:06 Intake & Output 01/13/19 01/14/19 01/15/19 06:59 06:59 06:59 Intake Total 2511 1353 100 Output Total 685 1200 1100 Balance 1826 153 -1000 Weight 74 kg 70.6 kg General appearance: PRESENT: no acute distress, disheveled, well-developed, well-nourished Head exam: PRESENT: atraumatic, normocephalic Eye exam: PRESENT: conjunctiva pink, EOMI, PERRLA. ABSENT: scleral icterus Ear exam: PRESENT: normal external ear exam Mouth exam: PRESENT: moist, tongue midline Neck exam: PRESENT: full ROM. ABSENT: carotid bruit, JVD, lymphadenopathy, thyromegaly Respiratory exam: PRESENT: unlabored Cardiovascular exam: PRESENT: RRR. ABSENT: diastolic murmur, rubs, systolic murmur Pulses: PRESENT: normal dorsalis pedis pul, +2 pedal pulses bilateral Vascular exam: PRESENT: normal capillary refill GI/Abdominal exam: PRESENT: normal bowel sounds, soft, other - Rectal tube. ABSENT: distended, guarding, mass, organolmegaly, rebound, tenderness Rectal exam: PRESENT: deferred Musculoskeletal exam: PRESENT: other - Lumbar spine: Tenderness palpation on the right paraspinal musculature. Unable to assess complete neurologic examination on the right lower extremity given history of previous ischemic CVA. Negative straight leg raise. Intact plantarflexion/dorsiflexion of the left lower extremity. No sensory deficits. Neurological exam: PRESENT: alert, awake, oriented to person, oriented to place, oriented to time, oriented to situation, CN II-XII grossly intact. ABSENT: mot or sensory deficit Psychiatric exam: PRESENT: appropriate affect, normal mood. ABSENT: homicidal ideation, suicidal ideation Skin exam: PRESENT: dry, intact, warm. ABSENT: cyanosis, rash Results Laboratory Results: 01/13/19 07:55 01/13/19 07:55 01/11/19 01:20 Stool - Stool - Final 01/11/19 01:20 Stool - Stool Stool Culture - Final NO SALMONELLA, SHIGELLA, CAMPYLOBACTER, OR E.COLI 0157 RECOVERED. NEGATIVE FOR SHIGA TOXINS 1&2. 01/10/19 01/10/19 19:47 19:47 Creatine Kinase 38 CK-MB (CK-2) 0.69 Troponin I < 0.012 Impressions: Chest X-Ray 01/10/19 00:00 IMPRESSION: No acute abnormality is identified. Guidance Fluoroscopy 01/11/19 00:00 IMPRESSION: SUCCESSFUL PLACEMENT OF A 5 FR DUAL LUMEN 33 CM PICC IN THE RIGHT BASILIC VEIN. Interventional Vascular Procedure 01/11/19 00:00 IMPRESSION: SUCCESSFUL PLACEMENT OF A 5 FR DUAL LUMEN 33 CM PICC IN THE RIGHT BASILIC VEIN. PICC Line Insertion 01/11/19 00:00 IMPRESSION: SUCCESSFUL PLACEMENT OF A 5 FR DUAL LUMEN 33 CM PICC IN THE RIGHT BASILIC VEIN. Assessment & Plan - Diagnosis (1) Mechanical low back pain Is this a current diagnosis for this admission?: Yes Plan: Patient likely suffers from underlying mechanical low back pain. Difficult to ascertain radiculitis given her history of CVA at this point we discussed treatment options I have recommended radiographs to evaluate for osseous abnormality otherwise patient may be better served with pain management consultation.
[2019-01-14] MEDS: RINGERS SOLUTION,LACTATED 1,000 ML IV PRN ×2 (12:40→16:45)
--- NOTE | 2019-01-14 14:48 | RADIOLOGY REPORT (SQ) ---
EXAM DESCRIPTION: L SPINE WHOLE COMPLETED DATE/TIME: 01/14/2019 1:32 pm REASON FOR STUDY: back pain COMPARISON: 06/11/2011. NUMBER OF VIEWS: Five views including obliques. TECHNIQUE: AP, lateral, oblique, and sacral radiographic images acquired of the lumbar spine. LIMITATIONS: None. FINDINGS: MINERALIZATION: Normal. SEGMENTATION: Normal. No transitional anatomy. ALIGNMENT: Normal. VERTEBRAE: Maintained height. No fracture or worrisome bone lesion. DISCS: Disc space narrowing at L4-L5. Small osteophytes. POSTERIOR ELEMENTS: Pedicles and facets are intact. No pars defect or posterior arch defects. HARDWARE: None in the spine. PARASPINAL SOFT TISSUES: Normal. PELVIS: Intact as visualized. No fractures or worrisome bone lesions. SI joints intact. OTHER: Aorta iliac and bilateral renal artery graft. IMPRESSION: DEGENERATIVE DISC DISEASE AT L4-L5. NO APPARENT ACUTE FINDINGS. TECHNICAL DOCUMENTATION: JOB ID: [id number] [employer]- All Rights Reserved Reading location - IP/workstation name: [email or web address]
--- NOTE | 2019-01-14 16:14 | PDOC PROGRESS REPORT ---
Subjective Progress Note for:: 01/14/19 Subjective:: KAREN MALDONADO is a 58 year old female with a past medical history of COPD, hypertension, hyperlipidemia, CKD stage IV not on hemodialysis,chronic diarrhea, left MCA stroke, osteoarthritis, chronic pain with opiate dependence, stage IV sacral decubitus ulcer, who presented to ED with severe weakness, hypotension, acute on chronic renal failure, severe dehydration, with persistent copious diarrhea, she was started on IV fluids and pressors and admitted to ICU. Patient stayed in ICU for several days, was placed on pressors and on empiric IV antibiotics, road machinery inspector was consulted, patient was volume resuscitated, rectal tube was also placed due to persistent copious diarrhea and the fact that she has history of sacral decubitus ulcer stool infection. She was transferred to the floor on 01/13/2019. 01/14/2019. Since being transferred from side to the floor I have seen patient several times for her persistent non-resolving back and right lower extremity pa in. Unfortunately patient is very poor historian, whenever I get the room she is crying keeps saying that she has pain, I have started her on MS Contin, tizanidine, gabapentin, however she keeps saying that her pain has not changed. I have consulted Dr. Reardon orthopedic surgeon for evaluation of her back pain but as per his note he could not get a good history either and his recommendations are consulting pain management, otherwise patient is complaining of nausea, has had one episode of vomiting, denies any fever, shortness of breath, chills, chest pain. Reason For Visit: SEVERE SEPSIS WITH SEPTIC SHOCK Physical Exam Vital Signs: Temp Pulse Resp BP Pulse Ox 98.0 F 71 16 90/52 L 92 01/14/19 11:06 01/14/19 11:06 01/14/19 11:06 01/14/19 11:06 01/14/19 11:06 Intake & Output 01/13/19 01/14/19 01/15/19 06:59 06:59 06:59 Intake Total 2511 1353 1812 Output Total 685 1200 1100 Balance 1826 153 712 Weight 74 kg 70.6 kg General appearance: PRESENT: no acute distress, other - Tearful crying. Head exam: PRESENT: atraumatic, normocephalic Respiratory exam: PRESENT: clear to auscultation abraham. ABSENT: rales, rhonchi, wheezes Cardiovascular exam: PRESENT: RRR. ABSENT: diastolic murmur, rubs, systolic murmur GI/Abdominal exam: PRESENT: normal bowel sounds, soft. ABSENT: distended, guarding, mass, organolmegaly, rebound, tenderness Extremities exam: PRESENT: full ROM, other - Healing stage IV decubitus ulcer, erythematous, no sign of infection.. ABSENT: calf tenderness, clubbing, pedal edema Neurological exam: PRESENT: alert, awake, oriented to person, oriented to place, oriented to time, oriented to situation, CN II-XII grossly intact Results Laboratory Results: 01/13/19 07:55 01/13/19 07:55 01/11/19 01:20 Stool - Stool - Final 01/11/19 01:20 Stool - Stool Stool Culture - Final NO SALMONELLA, SHIGELLA, CAMPYLOBACTER, OR E.COLI 0157 RECOVERED. NEGATIVE FOR SHIGA TOXINS 1&2. 01/10/19 01/10/19 19:47 19:47 Creatine Kinase 38 CK-MB (CK-2) 0.69 Troponin I < 0.012 Impressions: Chest X-Ray 01/10/19 00:00 IMPRESSION: No acute abnormality is identified. Guidance Fluoroscopy 01/11/19 00:00 IMPRESSION: SUCCESSFUL PLACEMENT OF A 5 FR DUAL LUMEN 33 CM PICC IN THE RIGHT BASILIC VEIN. Interventional Vascular Procedure 01/11/19 00:00 IMPRESSION: SUCCESSFUL PLACEMENT OF A 5 FR DUAL LUMEN 33 CM PICC IN THE RIGHT BASILIC VEIN. PICC Line Insertion 01/11/19 00:00 IMPRESSION: SUCCESSFUL PLACEMENT OF A 5 FR DUAL LUMEN 33 CM PICC IN THE RIGHT BASILIC VEIN. 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 NO APPARENT ACUTE FINDINGS. Assessment and Plan - Diagnosis (1) Dehydration Is this a current diagnosis for this admission?: Yes (2) Diarrhea Qualifiers: Diarrhea type: functional diarrhea Qualified Code(s): K59.1 - Functional diarrhea Is this a current diagnosis for this admission?: Yes Plan: Chronic diarrhea. C. difficile diarrhea. Patient has still copious diarrhea, no leukocytosis, rectal tube was placed in ICU as patient has history of stage IV decubitus ulcer with infection. Rectal tube could be removed however patient is still having copious diarrhea and has healing decubitus ulcer, I am afraid if it is removed patient may have complication of her decubitus ulcer. I have consulted gastroenterology for evaluation of her chronic diarrhea however no gastroenterology consult available until tomorrow. We will leave the rectal tube 1 more day and remove it after evaluated by post framer. Meanwhile continue volume resuscitation, monitor electrolytes and replace as needed, continue Lomotil. Gastroenterology consulted. Pending recommendation. (3) Acute kidney injury superimposed on chronic kidney disease Is this a current diagnosis for this admission?: Yes Plan: Prerenal. Most likely due to hypotension. Creatinine improved. Electrolyte WNL. Avoid nephrotoxic meds. Nephrology on board. Recommendations noted. (4) CVA, old, hemiparesis Is this a current diagnosis for this admission?: Yes Plan: Continue statins, continue aspirin, optimize BP. (5) Chronic pain Qualifiers: Chronic pain type: chronic pain syndrome Qualified Code(s): G89.4 - Chronic pain syndrome Is this a current diagnosis for this admission?: Yes Plan: Chronic pain with opiate dependency. Unfortunately patient is not responsive to MS Contin, tizanidine and gabapentin which were started yesterday. Orthopedic surgeon consulted for further evaluation. Continue MS Contin, tizanidine and gabapentin. Adjust meds as needed. Follow further recommendation. Consult pain management.
[2019-01-14] MEDS: PHARMACY COMMUNICATION ORDER MC SCH (17:25)
[2019-01-14] MEDS: ATORVASTATIN CALCIUM 40 MG TABLET PO SCH (21:26)
[2019-01-15] MEDS: MORPHINE SULFATE 10 MG/ML INJ IV PRN ×2 (04:07→20:09)
[2019-01-15 05:21] LABS: ABSOLUTE LYMPHOCYTES (AUTO) 1.6 10^3/uL (0.5-4.7); ABSOLUTE MONOCYTES (AUTO) 0.5 10^3/uL (0.1-1.4); BASOPHILS % (AUTO) 0.2 % (0-2); EOSINOPHILS % (AUTO) 0.7 % (0-6); HEMOGLOBIN 9.2 g/dL (12.0-15.5); LYMPHOCYTES % (AUTO) 31.3 % (13-45); MEAN CORPUSCULAR HEMOGLOBIN 26.8 pg (27.0-33.4); MEAN CORPUSCULAR HGB CONC 32.9 g/dL (32.0-36.0); MEAN CORPUSCULAR VOLUME 82 fl (80-97); MONOCYTES % (AUTO) 10.2 % (3-13); PLATELET COUNT 314 10^3/uL (150-450); RED BLOOD COUNT 3.44 10^6/uL (3.72-5.28); RED CELL DISTRIBUTION WIDTH 16.9 % (11.5-14.0); SEGMENTED NEUTROPHILS % (AUTO) 57.6 % (42-78); TOTAL CELLS COUNTED % (AUTO) 100 %; WHITE BLOOD COUNT 5.2 10^3/uL (4.0-10.5)
[2019-01-15] MEDS: GABAPENTIN 300 MG CAPSULE PO SCH ×3 (05:37→22:15)
[2019-01-15] MEDS: TIZANIDINE HCL 4 MG TABLET PO SCH ×3 (05:37→22:15)
[2019-01-15] MEDS: HEPARIN SOD (PORCINE) 5,000 UNIT/ML 1 ML VIAL SUBCUT SCH ×3 (05:37→22:17)
[2019-01-15] MEDS: MORPHINE SULFATE SR 15 MG TABLET PO SCH ×2 (05:38→17:10)
[2019-01-15 05:45] LABS: ALBUMIN 2.4 g/dL (3.5-5.0); ALKALINE PHOSPHATASE 66 U/L (38-126); ANION GAP 9 (5-19); ASPARTATE AMINO TRANSFERASE 14 U/L (14-36); BILIRUBIN,DIRECT 0.5 mg/dL (0.0-0.4); BILIRUBIN,TOTAL 0.8 mg/dL (0.2-1.3); BLOOD UREA NITROGEN 19 mg/dL (7-20); CALCIUM 8.5 mg/dL (8.4-10.2); CARBON DIOXIDE 29 mmol/L (22-30); CHLORIDE 101 mmol/L (98-107); GLUCOSE 77 mg/dL (75-110); POTASSIUM 3.5 mmol/L (3.6-5.0); TOTAL PROTEIN 5.1 g/dL (6.3-8.2)
[2019-01-15] MEDS: RINGERS SOLUTION,LACTATED 1,000 ML IV PRN ×2 (07:38→17:12)
[2019-01-15] MEDS: PANTOPRAZOLE SODIUM 40 MG TABLET.DR PO SCH (07:38)
[2019-01-15] MEDS: PROMETHAZINE HCL INJ 25 MG/1 ML VIAL IV PRN ×2 (08:04→18:06)
[2019-01-15] MEDS: HYDROMORPHONE HCL INJ/PF 2 MG/ML AMPULE IV PRN ×4 (08:04→18:06)
--- NOTE | 2019-01-15 08:04 | Progress Note ---
Provider Note Provider Note: Full note to be dictated noted to have C Diff diarrhea start Dificid for 10 days and once diarrhea is better can remove rectal tube further recommendations to follow
[2019-01-15] MEDS: FLUTICASONE/VILANTEROL 100-25 MCG/DOSE IH SCH (10:45)
[2019-01-15] MEDS: AMPICILLIN TRIHYD 500 MG CAPSULE PO SCH ×2 (10:45→22:15)
[2019-01-15] MEDS: NORMAL SALINE 10 ML SDV (SCHEDULED) IV SCH ×2 (10:47→22:15)
[2019-01-15] MEDS: ONDANSETRON HCL INJ/PF 4 MG/2 ML SDV IV PRN ×2 (11:46→20:09)
[2019-01-15] MEDS ORDERED: POTASSIUM CHLORIDE 10 MEQ CAPSULE.ER PO ONE (12:29)
--- NOTE | 2019-01-15 12:53 | PDOC PROGRESS REPORT ---
Subjective Progress Note for:: 01/15/19 Subjective:: Brief synopsisi KAREN MALDONADO is a 58 year old female with a past medical history of COPD, hypertension, hyperlipidemia, CKD stage IV not on hemodialysis,chronic diarrhea, left MCA stroke, osteoarthritis, chronic pain with opiate dependence, stage IV sacral decubitus ulcer, who presented to ED with severe weakness, hypotension, acute on chronic renal failure, severe dehydration, with persistent copious diarrhea, she was started on IV fluids and pressors and admitted to ICU. Patient stayed in ICU for several days, was placed on pressors and on empiric IV antibiotics, receiving associate was consulted, patient was volume resuscitated, rectal tube was also placed due to persistent copious diarrhea and the fact that she has history of sacral decubitus ulcer stool infection. She was transferred to the floor on 01/13/2019. Today patient still c/o nausea. Still having diarrhea. Eager to have rectal tube removed but willing to wait until diarrhea improves. Has some mild abdominal pain. Denies any fever or chills or SOB. Reason For Visit: SEVERE SEPSIS WITH SEPTIC SHOCK Physical Exam Vital Signs: Temp Pulse Resp BP Pulse Ox 98 F 80 16 125/64 96 01/15/19 12:00 01/15/19 12:00 01/15/19 12:00 01/15/19 12:00 01/15/19 12:00 Intake & Output 01/14/19 01/15/19 01/16/19 06:59 06:59 06:59 Intake Total 1353 3120 Output Total 1200 1350 Balance 153 1770 Weight 70.6 kg 75.9 kg General appearance: PRESENT: no acute distress, well-developed, well-nourished Head exam: PRESENT: atraumatic, normocephalic Eye exam: PRESENT: conjunctiva pink, EOMI, PERRLA. ABSENT: scleral icterus Ear exam: PRESENT: normal external ear exam Mouth exam: PRESENT: moist, tongue midline Neck exam: ABSENT: carotid bruit, JVD, lymphadenopathy, thyromegaly Respiratory exam: PRESENT: clear to auscultation abraham. ABSENT: rales, rhonchi, wheezes Cardiovascular exam: PRESENT: RRR. ABSENT: diastolic murmur, rubs, systolic murmur Pulses: PRESENT: normal dorsalis pedis pul Vascular exam: PRESENT: normal capillary refill GI/Abdominal exam: PRESENT: normal bowel sounds, soft, tenderness - mild. ABSENT: distended, guarding, mass, organolmegaly, rebound Rectal exam: PRESENT: deferred Extremities exam: PRESENT: full ROM. ABSENT: calf tenderness, clubbing, pedal edema Neurological exam: PRESENT: alert, awake, oriented to person, oriented to place, oriented to time, oriented to situation, CN II-XII grossly intact. ABSENT: motor sensory deficit Psychiatric exam: PRESENT: appropriate affect, normal mood. ABSENT: homicidal ideation, suicidal ideation Skin exam: PRESENT: dry, intact, warm. ABSENT: cyanosis, rash Results Laboratory Results: 01/15/19 04:15 01/15/19 04:15 01/15/19 01/15/19 04:15 04:15 WBC 5.2 RBC 3.44 L Hgb 9.2 L Hct 28.0 L MCV 82 MCH 26.8 L MCHC 32.9 RDW 16.9 H Plt Count 314 Seg Neutrophils % 57.6 Sodium 138.9 Potassium 3.5 L Chloride 101 Carbon Dioxide 29 Anion Gap 9 BUN 19 Creatinine 0.96 Est GFR ( Amer) > 60 Glucose 77 Calcium 8.5 Magnesium 1.8 Total Bilirubin 0.8 AST 14 Alkaline Phosphatase 66 Total Protein 5.1 L Albumin 2.4 L 01/11/19 01:20 Stool - Stool - Final 01/11/19 01:20 Stool - Stool Stool Culture - Final NO SALMONELLA, SHIGELLA, CAMPYLOBACTER, OR E.COLI 0157 RECOVERED. NEGATIVE FOR SHIGA TOXINS 1&2. 01/10/19 01/10/19 19:47 19:47 Creatine Kinase 38 CK-MB (CK-2) 0.69 Troponin I < 0.012 Impressions: Chest X-Ray 01/10/19 00:00 IMPRESSION: No acute abnormality is identified. Guidance Fluoroscopy 01/11/19 00:00 IMPRESSION: SUCCESSFUL PLACEMENT OF A 5 FR DUAL LUMEN 33 CM PICC IN THE RIGHT BASILIC VEIN. Interventional Vascular Procedure 01/11/19 00:00 IMPRESSION: SUCCESSFUL PLACEMENT OF A 5 FR DUAL LUMEN 33 CM PICC IN THE RIGHT BASILIC VEIN. PICC Line Insertion 01/11/19 00:00 IMPRESSION: SUCCESSFUL PLACEMENT OF A 5 FR DUAL LUMEN 33 CM PICC IN THE RIGHT BASILIC VEIN. 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 NO APPARENT ACUTE FINDINGS. Assessment and Plan - Diagnosis (1) C. difficile colitis Is this a current diagnosis for this admission?: Yes Plan: Will start of Dificid for 10days Remove rectal tube once Diarrhea improves. (2) Dehydration Is this a current diagnosis for this admission?: Yes Plan: Improved s/p IVF (3) Mechanical low back pain Is this a current diagnosis for this admission?: Yes Plan: 2/2 Degenerative joint disease of lumbar spine. Will continue pain meds for now with plan for de-escalation. Will consult pain management if worsens. (4) SEB (acute kidney injury) Is this a current diagnosis for this admission?: Yes (5) Chronic pain disorder Is this a current diagnosis for this admission?: Yes Plan: Continue with current pain regimen with plan for deescalation back to home dose (6) Decubitus ulcer of sacral region Qualifiers: Pressure injury stage: unspecified pressure injury stage Qualified Code(s): L89.159 - Pressure ulcer of sacral region, unspecified stage Is this a current diagnosis for this admission?: Yes Plan: On Ampicillin for suspected infection (7) Hypokalemia due to excessive gastrointestinal loss of potassium Is this a current diagnosis for this admission?: Yes Plan: Replete as needed and monitor - Time Time Spent with patient: 25-34 minutes
[2019-01-15] MEDS: FIDAXOMICIN 200 MG TABLET PO SCH ×2 (14:35→22:15)
--- NOTE | 2019-01-15 17:00 | PDOC CONSULTATION ---
Consultation Consult Date: 01/15/19 Provider Consulted: LISA MCNALLY Consult reason:: diarrhea secondary to C.Diff. has rectal tube, primary service wants to know when to remove History of Present Illness Admission Date/PCP: 01/11/19 00:02 LETA PRIEST DO History of Present Illness: KAREN MALDONADO is a 58 year old female patient admitted for sepsis and in the ICU noted to have diarrhea has rectal tube inserted stools for C.Diff are positive will need treatment has chronic anemia no observed blood will start Dificid ,once stools firm up and discontinue rectal tube Past Medical History Cardiac Medical History: Reports: Hyperlipidema, Hypertension, Other - History of sub-renal abdominal aortic aneurysm Denies: Atrial Fibrillation, Congestive Heart Failure, Coronary Artery Disease, Myocardial Infarction Pulmonary Medical History: Reports: Bronchitis, Chronic Obstructive Pulmonary Disease (COPD), Pneumonia EENT Medical History: Denies: Cataracts, Ears - Hearing aids Neurological Medical History: Reports: Ischemic CVA Denies: Hemorrhagic CVA, Seizures Endocrine Medical History: Denies: Diabetes Mellitus Type 1, Diabetes Mellitus Type 2, Hyperthyroidism, Hypothyroidism Renal/ Medical History: Reports: Other - Chronic kidney infections Denies: Chronic Kidney Disease, Nephrolithiasis Malignancy Medical History: Reports: Breast Cancer GI Medical History: Reports: Diverticulitis, Other - Chronic diarrhea Denies: Cirrhosis, Crohn's Disease, Hepatitis, Ulcerative Colitis Musculoskeltal Medical History: Reports: Arthritis Denies: Gout Skin Medical History: Reports: Other - Decubitus ulcers Denies: Eczema, Psoriasis Psychiatric Medical History: Reports: Depression, Substance Abuse, Tobacco Dependency Denies: Alcohol Dependency Traumatic Medical History: Denies: Gunshot Wound, Pneumothorax Hematology: Denies: Anemia, Sickle Cell Disease, Bleeding Tendencies Infectious Medical History: Reports: HIV Past Surgical History Past Surgical History: Reports: Section - X3, Cholecystectomy, Hysterectomy, Tubal Ligation Social History Lives with: Spouse/Significant other Smoking Status: Current Every Day Smoker Electronic Cigarette use?: No Frequency of Alcohol Use: None Hx Recreational Drug Use: No Drugs: None Hx Prescription Drug Abuse: Yes - Advance Directive Resuscitation Status: Full Code Family History Family History: COPD, Hypertension Parental Family History Reviewed: Yes Children Family History Reviewed: Unknown Sibling(s) Family History Reviewed.: Unknown Medication/Allergy Home Medications: Lisinopril [Prinivil 10 mg Tablet] 10 mg PO DAILY 12/27/18 Oxycodone HCl/Acetaminophen [Percocet 10-325 mg Tablet] 1 each PO Q6HP PRN 12/27/18 Atorvastatin Calcium [Lipitor 40 mg Tablet] 40 mg PO QHS 01/11/19 Diclofenac Sodium [Voltaren] 1 applic TP QIDP PRN 01/11/19 Fluticasone/Salmeterol [Advair 100-50 Diskus 14 Dose/Diskus] 1 inh IH Q12 01/11/19 Naproxen 500 mg PO Q12 01/11/19 Pantoprazole Sodium [Protonix [address] Tablet] 40 mg PO QAM 01/11/19 Allergies/Adverse Reactions: No Known Allergies Allergy (Verified 05/15/18 10:38) Review of Systems Constitutional: ABSENT: fever(s), headache(s) Eyes: ABSENT: visual disturbances Ears: ABSENT: hearing changes Nose, Mouth, and Throat: ABSENT: mouth pain Respiratory: ABSENT: dyspnea, hemoptysis Gastrointestinal: PRESENT: diarrhea. ABSENT: hematochezia, nausea, vomiting Genitourinary: ABSENT: dysuria, hematuria Musculoskeletal: ABSENT: deformity, joint swelling Integumentary: ABSENT: lesions, pruritus Neurological: ABSENT: syncope, tremor(s), vertigo Endocrine: ABSENT: polydipsia, polyphagia Physical Exam Vital Signs: Temp Pulse Resp BP Pulse Ox 98 F 80 16 125/64 96 01/15/19 12:00 01/15/19 12:00 01/15/19 12:00 01/15/19 12:00 01/15/19 12:00 Intake & Output 01/14/19 01/15/19 01/16/19 06:59 06:59 06:59 Intake Total 1353 3120 Output Total 1200 1350 Balance 153 1770 Weight 70.6 kg 75.9 kg 75.9 kg General appearance: PRESENT: no acute distress, mild distress, well-developed, well-nourished Head exam: PRESENT: atraumatic, normocephalic Eye exam: PRESENT: EOMI, PERRLA. ABSENT: nystagmus, scleral icterus Mouth exam: PRESENT: moist Neck exam: ABSENT: meningismus, tenderness, thyromegaly Respiratory exam: PRESENT: symmetrical, unlabored. ABSENT: tachypnea Cardiovascular exam: PRESENT: RRR, +S1, +S2 GI/Abdominal exam: PRESENT: normal bowel sounds. ABSENT: Zee's sign, rebound Extremities exam: ABSENT: joint swelling, pedal edema Neurological exam: PRESENT: alert, awake, CN II-XII grossly intact Skin exam: PRESENT: normal color. ABSENT: mottled, pallor, urticaria, vesicles Results Laboratory Results: 01/15/19 04:15 01/15/19 04:15 01/15/19 01/15/19 04:15 04:15 WBC 5.2 RBC 3.44 L Hgb 9.2 L Hct 28.0 L MCV 82 MCH 26.8 L MCHC 32.9 RDW 16.9 H Plt Count 314 Seg Neutrophils % 57.6 Sodium 138.9 Potassium 3.5 L Chloride 101 Carbon Dioxide 29 Anion Gap 9 BUN 19 Creatinine 0.96 Est GFR ( Amer) > 60 Glucose 77 Calcium 8.5 Magnesium 1.8 Total Bilirubin 0.8 AST 14 Alkaline Phosphatase 66 Total Protein 5.1 L Albumin 2.4 L 01/10/19 01/10/19 19:47 19:47 Creatine Kinase 38 CK-MB (CK-2) 0.69 Troponin I < 0.012 Impressions: Chest X-Ray 01/10/19 00:00 IMPRESSION: No acute abnormality is identified. Guidance Fluoroscopy 01/11/19 00:00 IMPRESSION: SUCCESSFUL PLACEMENT OF A 5 FR DUAL LUMEN 33 CM PICC IN THE RIGHT BASILIC VEIN. Interventional Vascular Procedure 01/11/19 00:00 IMPRESSION: SUCCESSFUL PLACEMENT OF A 5 FR DUAL LUMEN 33 CM PICC IN THE RIGHT BASILIC VEIN. PICC Line Insertion 01/11/19 00:00 IMPRESSION: SUCCESSFUL PLACEMENT OF A 5 FR DUAL LUMEN 33 CM PICC IN THE RIGHT BASILIC VEIN. 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 NO APPARENT ACUTE FINDINGS. Assessment & Plan - Diagnosis (1) C. difficile colitis Is this a current diagnosis for this admission?: Yes Plan: start C.Diff treatment with Dificid high resistance to Flagyl start for 10 years remove rectal tube once diarrhea has resolved please call if further questions
[2019-01-15] MEDS: PHARMACY COMMUNICATION ORDER MC SCH (17:08)
[2019-01-15] MEDS: ATORVASTATIN CALCIUM 40 MG TABLET PO SCH (22:15)
[2019-01-16] MEDS: MORPHINE SULFATE 10 MG/ML INJ IV PRN ×2 (01:44→20:06)
[2019-01-16] MEDS: ONDANSETRON HCL INJ/PF 4 MG/2 ML SDV IV PRN (02:31)
[2019-01-16] MEDS: HYDROMORPHONE HCL INJ/PF 2 MG/ML AMPULE IV PRN (04:22)
[2019-01-16] MEDS: TIZANIDINE HCL 4 MG TABLET PO SCH ×3 (06:35→21:40)
[2019-01-16] MEDS: GABAPENTIN 300 MG CAPSULE PO SCH ×3 (06:35→21:39)
[2019-01-16] MEDS: MORPHINE SULFATE SR 15 MG TABLET PO SCH (06:35)
[2019-01-16] MEDS: HEPARIN SOD (PORCINE) 5,000 UNIT/ML 1 ML VIAL SUBCUT SCH ×3 (06:35→21:37)
[2019-01-16] MEDS ORDERED: OXYCODONE-ACETAMINOPHEN 5-325 MG TABLET PO SCH (08:15)
[2019-01-16] MEDS: PANTOPRAZOLE SODIUM 40 MG TABLET.DR PO SCH (08:17)
[2019-01-16] MEDS: OXYCODONE-ACETAMINOPHEN 5-325 MG TABLET PO SCH ×3 (09:59→21:34)
[2019-01-16] MEDS: AMPICILLIN TRIHYD 500 MG CAPSULE PO SCH ×2 (10:00→21:39)
[2019-01-16] MEDS: FIDAXOMICIN 200 MG TABLET PO SCH ×2 (10:00→21:36)
[2019-01-16] MEDS: FLUTICASONE/VILANTEROL 100-25 MCG/DOSE IH SCH (10:00)
[2019-01-16] MEDS: NORMAL SALINE 10 ML SDV (SCHEDULED) IV SCH ×2 (10:01→21:38)
--- NOTE | 2019-01-16 16:09 | PDOC PROGRESS REPORT ---
Subjective Progress Note for:: 01/16/19 Subjective:: Brief synopsisi KAREN MALDONADO is a 58 year old female with a past medical history of COPD, hypertension, hyperlipidemia, CKD stage IV not on hemodialysis,chronic diarrhea, left MCA stroke, osteoarthritis, chronic pain with opiate dependence, stage IV sacral decubitus ulcer, who presented to ED with severe weakness, hypotension, acute on chronic renal failure, severe dehydration, with persistent copious diarrhea, she was started on IV fluids and pressors and admitted to ICU. Patient stayed in ICU for several days, was placed on pressors and on empiric IV antibiotics, electrical electronics engineer was consulted, patient was volume resuscitated, rectal tube was also placed due to persistent copious diarrhea and the fact that she has history of sacral decubitus ulcer stool infection. She was transferred to the floor on 01/13/2019. 01/15/19 patient still c/o nausea. Still having diarrhea. Eager to have rectal tube removed but willing to wait until diarrhea improves. Has some mild abdominal pain. Denies any fever or chills or SOB. 01/16/19 patient still having abdominal pain. Had an episode of nausea with bilious vomiting. Still having persistent diarrhea with collection in the rectal tube. Denies any fevers or chills. Denied any shortness of breath. Patient's daughter raising concerns about the decubitus ulcer as well as the dressing. Had a conversation with patient's daughter discussing with her that the documentation as well as appearance of the decubitus ulcer states that also has been present even on admission. Reason For Visit: SEVERE SEPSIS WITH SEPTIC SHOCK Physical Exam Vital Signs: Temp Pulse Resp BP Pulse Ox 98.2 F 80 16 125/62 95 01/16/19 15:52 01/16/19 15:52 01/16/19 15:52 01/16/19 15:52 01/16/19 15:52 Intake & Output 01/15/19 01/16/19 01/17/19 06:59 06:59 06:59 Intake Total 3120 1563 830 Output Total 1350 800 Balance 1770 763 830 Weight 75.9 kg 76.8 kg General appearance: PRESENT: mild distress - Distress regarding patient defecating on herself and leaking through the rectal tube Head exam: PRESENT: normocephalic Eye exam: PRESENT: conjunctiva pink Mouth exam: PRESENT: moist Neck exam: ABSENT: tracheal deviation Respiratory exam: PRESENT: clear to auscultation abraham Cardiovascular exam: PRESENT: RRR, +S1 Vascular exam: ABSENT: pallor GI/Abdominal exam: PRESENT: distended, hyperactive bowel sounds, soft, tenderness. ABSENT: guarding, rebound, rigid Rectal exam: PRESENT: other - Rectal tube present. Bag is filled Extremities exam: ABSENT: calf tenderness Musculoskeletal exam: ABSENT: ambulatory Neurological exam: PRESENT: alert, awake Psychiatric exam: PRESENT: anxious Results Laboratory Results: 01/15/19 04:15 01/15/19 04:15 01/10/19 20:10 Blood Blood Culture - Final NO GROWTH IN 5 DAYS 01/10/19 19:47 Blood Blood Culture - Final NO GROWTH IN 5 DAYS 01/10/19 01/10/19 19:47 19:47 Creatine Kinase 38 CK-MB (CK-2) 0.69 Troponin I < 0.012 Impressions: Chest X-Ray 01/10/19 00:00 IMPRESSION: No acute abnormality is identified. Guidance Fluoroscopy 01/11/19 00:00 IMPRESSION: SUCCESSFUL PLACEMENT OF A 5 FR DUAL LUMEN 33 CM PICC IN THE RIGHT BASILIC VEIN. Interventional Vascular Procedure 01/11/19 00:00 IMPRESSION: SUCCESSFUL PLACEMENT OF A 5 FR DUAL LUMEN 33 CM PICC IN THE RIGHT BASILIC VEIN. PICC Line Insertion 01/11/19 00:00 IMPRESSION: SUCCESSFUL PLACEMENT OF A 5 FR DUAL LUMEN 33 CM PICC IN THE RIGHT BASILIC VEIN. 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 NO APPARENT ACUTE FINDINGS. Assessment and Plan - Diagnosis (1) C. difficile colitis Is this a current diagnosis for this admission?: Yes Plan: GI recommending Dificid for 10days for possible C. difficile colitis Remove rectal tube once Diarrhea improves. (2) Dehydration Is this a current diagnosis for this admission?: Yes (3) Mechanical low back pain Is this a current diagnosis for this admission?: Yes Plan: 2/2 Degenerative joint disease of lumbar spine. Pain medications escalated to Percocet. Will consult pain management if worsens. (4) SEB (acute kidney injury) Is this a current diagnosis for this admission?: Yes Plan: SEB resolved per BMP yesterday (5) Chronic pain disorder Is this a current diagnosis for this admission?: Yes Plan: Pain regimen de-escalated to patient's home dose of Percocet (6) Decubitus ulcer of sacral region Qualifiers: Pressure injury stage: unspecified pressure injury stage Qualified Code(s): L89.159 - Pressure ulcer of sacral region, unspecified stage Is this a current diagnosis for this admission?: Yes Plan: On Ampicillin for suspected infection Continue with wound dressing wound care Rectal tube still in place to prevent re-contamination of wound. Encourage adequate nutrition. Dietary consult. (7) Hypokalemia due to excessive gastrointestinal loss of potassium Is this a current diagnosis for this admission?: Yes Plan: Replete as needed and monitor - Time Time Spent with patient: 25-34 minutes
[2019-01-16] MEDS: PHARMACY COMMUNICATION ORDER MC SCH (17:58)
[2019-01-16] MEDS: RINGERS SOLUTION,LACTATED 1,000 ML IV PRN (20:07)
[2019-01-16] MEDS: ATORVASTATIN CALCIUM 40 MG TABLET PO SCH (21:38)
[2019-01-17] MEDS: MORPHINE SULFATE 10 MG/ML INJ IV PRN ×4 (02:01→20:38)
[2019-01-17] MEDS: OXYCODONE-ACETAMINOPHEN 5-325 MG TABLET PO SCH ×4 (02:20→20:31)
[2019-01-17] MEDS: GABAPENTIN 300 MG CAPSULE PO SCH ×3 (05:39→22:59)
[2019-01-17] MEDS: HEPARIN SOD (PORCINE) 5,000 UNIT/ML 1 ML VIAL SUBCUT SCH ×3 (05:39→23:00)
[2019-01-17] MEDS: TIZANIDINE HCL 4 MG TABLET PO SCH ×3 (05:40→23:02)
[2019-01-17 06:30] LABS: ABSOLUTE EOSINOPHILS # (AUTO) 0.1 10^3/uL (0.0-0.6); ABSOLUTE LYMPHOCYTES (AUTO) 2.1 10^3/uL (0.5-4.7); ABSOLUTE MONOCYTES (AUTO) 0.5 10^3/uL (0.1-1.4); ABSOLUTE NEUT (AUTO) 4.2 10^3/uL (1.7-8.2); BASOPHILS % (AUTO) 0.1 % (0-2); EOSINOPHILS % (AUTO) 0.9 % (0-6); HEMATOCRIT 26.9 % (36.0-47.0); HEMOGLOBIN 8.7 g/dL (12.0-15.5); LYMPHOCYTES % (AUTO) 30.4 % (13-45); MEAN CORPUSCULAR HEMOGLOBIN 26.6 pg (27.0-33.4); MEAN CORPUSCULAR HGB CONC 32.3 g/dL (32.0-36.0); MEAN CORPUSCULAR VOLUME 82 fl (80-97); MONOCYTES % (AUTO) 7.1 % (3-13); PLATELET COUNT 287 10^3/uL (150-450); RED BLOOD COUNT 3.26 10^6/uL (3.72-5.28); RED CELL DISTRIBUTION WIDTH 17.3 % (11.5-14.0); SEGMENTED NEUTROPHILS % (AUTO) 61.5 % (42-78); TOTAL CELLS COUNTED % (AUTO) 100 %; WHITE BLOOD COUNT 6.8 10^3/uL (4.0-10.5)
[2019-01-17 06:53] LABS: ALBUMIN 2.1 g/dL (3.5-5.0); ALKALINE PHOSPHATASE 51 U/L (38-126); ASPARTATE AMINO TRANSFERASE 9 U/L (14-36); BILIRUBIN,DIRECT 0.2 mg/dL (0.0-0.4); BILIRUBIN,TOTAL 0.4 mg/dL (0.2-1.3); BLOOD UREA NITROGEN 14 mg/dL (7-20); CALCIUM 7.7 mg/dL (8.4-10.2); GLUCOSE 91 mg/dL (75-110); POTASSIUM 4.1 mmol/L (3.6-5.0); TOTAL PROTEIN 4.3 g/dL (6.3-8.2)
[2019-01-17 06:58] LABS: CARBON DIOXIDE 31 mmol/L (22-30); CHLORIDE 102 mmol/L (98-107)
[2019-01-17 07:03] LABS: ANION GAP 4 (5-19)
[2019-01-17] MEDS ORDERED: NORMAL SALINE 1000 ML 1,000 ML IV STA (07:56)
[2019-01-17] MEDS: PANTOPRAZOLE SODIUM 40 MG TABLET.DR PO SCH (08:04)
[2019-01-17] MEDS: FLUTICASONE/VILANTEROL 100-25 MCG/DOSE IH SCH (09:33)
[2019-01-17] MEDS: FIDAXOMICIN 200 MG TABLET PO SCH (09:33)
[2019-01-17] MEDS: NORMAL SALINE 10 ML SDV (SCHEDULED) IV SCH ×2 (09:33→23:01)
[2019-01-17] MEDS: AMPICILLIN TRIHYD 500 MG CAPSULE PO SCH ×2 (09:34→23:01)
[2019-01-17] MEDS ORDERED: LOPERAMIDE HCL 2 MG CAPSULE PO PRN ×2 (10:55→11:30)
--- NOTE | 2019-01-17 11:16 | PDOC PROGRESS REPORT ---
Subjective Progress Note for:: 01/17/19 Subjective:: Brief synopsisi KAREN MALDONADO is a 58 year old female with a past medical history of COPD, hypertension, hyperlipidemia, CKD stage IV not on hemodialysis,chronic diarrhea, left MCA stroke, osteoarthritis, chronic pain with opiate dependence, stage IV sacral decubitus ulcer, who presented to ED with severe weakness, hypotension, acute on chronic renal failure, severe dehydration, with persistent copious diarrhea, she was started on IV fluids and pressors and admitted to ICU. Patient stayed in ICU for several days, was placed on pressors and on empiric IV antibiotics, lathe setup operator was consulted, patient was volume resuscitated, rectal tube was also placed due to persistent copious diarrhea and the fact that she has history of sacral decubitus ulcer stool infection. She was transferred to the floor on 01/13/2019. 01/15/19 patient still c/o nausea. Still having diarrhea. Eager to have rectal tube removed but willing to wait until diarrhea improves. Has some mild abdominal pain. Denies any fever or chills or SOB. 01/16/19 patient still having abdominal pain. Had an episode of nausea with bilious vomiting. Still having persistent diarrhea with collection in the rectal tube. Denies any fevers or chills. Denied any shortness of breath. Patient's daughter raising concerns about the decubitus ulcer as well as the dressing. Had a conversation with patient's daughter discussing with her that the documentation as well as appearance of the decubitus ulcer states that also has been present even on admission. 01/17/2019 patient still complaining of abdominal pain. No episode of vomiting yesterday. Patient still having diarrhea but output improved yesterday. Patient still complains of back pain. Denies fever or chills. Reason For Visit: SEVERE SEPSIS WITH SEPTIC SHOCK Physical Exam Vital Signs: Temp Pulse Resp BP Pulse Ox 97.7 F 82 16 111/49 L 94 01/17/19 01:06 01/17/19 08:06 01/17/19 08:06 01/17/19 08:06 01/17/19 08:06 Intake & Output 01/16/19 01/17/19 01/18/19 06:59 06:59 06:59 Intake Total 1563 1830 957 Output Total 800 650 Balance 763 1180 957 Weight 76.8 kg 76.5 kg General appearance: PRESENT: cooperative Head exam: PRESENT: normocephalic Eye exam: PRESENT: EOMI Neck exam: ABSENT: JVD, tracheal deviation Respiratory exam: PRESENT: clear to auscultation abraham. ABSENT: wheezes Cardiovascular exam: PRESENT: RRR, +S1 Vascular exam: PRESENT: normal capillary refill, pallor GI/Abdominal exam: PRESENT: distended, normal bowel sounds, soft, tenderness. ABSENT: firm, guarding, rigid Rectal exam: PRESENT: other - Rectal tube in place Musculoskeletal exam: ABSENT: ambulatory Neurological exam: PRESENT: alert, awake Focused psych exam: ABSENT: internal stimuli Results Laboratory Results: 01/17/19 05:45 01/17/19 05:45 01/17/19 01/17/19 05:45 05:45 WBC 6.8 RBC 3.26 L Hgb 8.7 L Hct 26.9 L MCV 82 MCH 26.6 L MCHC 32.3 RDW 17.3 H Plt Count 287 Seg Neutrophils % 61.5 Sodium 137.4 Potassium 4.1 Chloride 102 Carbon Dioxide 31 H Anion Gap 4 L BUN 14 Creatinine 0.93 Est GFR ( Amer) > 60 Glucose 91 Calcium 7.7 L Total Bilirubin 0.4 AST 9 L Alkaline Phosphatase 51 Total Protein 4.3 L Albumin 2.1 L 01/10/19 01/10/19 19:47 19:47 Creatine Kinase 38 CK-MB (CK-2) 0.69 Troponin I < 0.012 Impressions: Chest X-Ray 01/10/19 00:00 IMPRESSION: No acute abnormality is identified. Guidance Fluoroscopy 01/11/19 00:00 IMPRESSION: SUCCESSFUL PLACEMENT OF A 5 FR DUAL LUMEN 33 CM PICC IN THE RIGHT BASILIC VEIN. Interventional Vascular Procedure 01/11/19 00:00 IMPRESSION: SUCCESSFUL PLACEMENT OF A 5 FR DUAL LUMEN 33 CM PICC IN THE RIGHT BASILIC VEIN. PICC Line Insertion 01/11/19 00:00 IMPRESSION: SUCCESSFUL PLACEMENT OF A 5 FR DUAL LUMEN 33 CM PICC IN THE RIGHT BASILIC VEIN. 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 NO APPARENT ACUTE FINDINGS. Assessment and Plan - Diagnosis (1) Diarrhea Qualifiers: Diarrhea type: functional diarrhea Qualified Code(s): K59.1 - Functional diarrhea Is this a current diagnosis for this admission?: Yes Plan: I suspect that patient has diarrhea is likely secondary to a post infectious irritable bowel syndrome from a recently resolved C. difficile infection. Will start patient on Imodium. If the diarrhea has slows down significantly today we will discontinue rectal tube. Given her undifferentiated abdominal pain which has persisted along with nausea vomiting and persistent diarrhea we will go ahead and obtain a CT of the abdomen and pelvis to investigate for any potential obstructive causes or inflammatory causes. (2) C. difficile colitis Is this a current diagnosis for this admission?: Yes Plan: On further review of lab work, PCR showing negative toxin and no thorough improvements in diarrhea no abdominal pain with fidaxomicin. Will discontinue fidaxomicin and start on Imodium. Likely had a recent bout resolved C. difficile colitis but not acute. (3) Dehydration Is this a current diagnosis for this admission?: Yes Plan: Resolved (4) Mechanical low back pain Is this a current diagnosis for this admission?: Yes Plan: 2/2 Degenerative joint disease of lumbar spine. Continue with home dose of Percocet. (5) SEB (acute kidney injury) Is this a current diagnosis for this admission?: Yes Plan: Resolved (6) Chronic pain disorder Is this a current diagnosis for this admission?: Yes Plan: Continue with home dose of Percocet (7) Decubitus ulcer of sacral region Qualifiers: Pressure injury stage: unspecified pressure injury stage Qualified Code(s): L89.159 - Pressure ulcer of sacral region, unspecified stage Is this a current diagnosis for this admission?: Yes Plan: On Ampicillin for suspected infection Continue with wound dressing wound care Rectal tube still in place to prevent re-contamination of wound. Encourage adequate nutrition. Dietary consult. (8) Hypokalemia due to excessive gastrointestinal loss of potassium Is this a current diagnosis for this admission?: Yes Plan: Resolved - Time Time Spent with patient: 25-34 minutes
[2019-01-17] MEDS ORDERED: CALCIUM GLUCONATE 1000 MG/10 ML INJ IV ONE (11:45)
[2019-01-17] MEDS: ONDANSETRON HCL INJ/PF 4 MG/2 ML SDV IV PRN (12:37)
[2019-01-17] MEDS: PROMETHAZINE HCL INJ 25 MG/1 ML VIAL IV PRN (16:16)
--- NOTE | 2019-01-17 18:22 | RADIOLOGY REPORT (SQ) ---
EXAM DESCRIPTION: CT ABD/PELVIS WITH IV ORAL COMPLETED DATE/TIME: 01/17/2019 3:22 pm REASON FOR STUDY: Undifferentiated abd pain, vomiting, diarrhea, ?obst COMPARISON: 12/26/2018 TECHNIQUE: CT scan of the abdomen and pelvis performed using helical scanning technique with dynamic intravenous contrast injection. No oral contrast. Images reviewed with lung, soft tissue, and bone windows. Reconstructed coronal and sagittal MPR images reviewed. Delayed images for evaluation of the urinary system also acquired. All images stored on PACS. All CT scanners at this facility use dose modulation, iterative reconstruction, and/or weight based d osing when appropriate to reduce radiation dose to as low as reasonably achievable (ALARA). [facility]: Dose Right [facility]: CareDose [facility]: Dose Right [facility]: Teradose 4D [facility]: Depop CONTRAST TYPE AND DOSE: 87 mL Omnipaque 350- low osmolar. RENAL FUNCTION: BU in 14 creatinine 0.83 RADIATION DOSE: . LIMITATIONS: None. FINDINGS: LOWER CHEST: Small right pleural effusion. No pulmonary infiltrate or mass. LIVER: Normal size. No masses. No dilated ducts. SPLEEN: Normal size. No focal lesions. PANCREAS: No masses. No significant calcifications. No adjacent inflammation or peripancreatic fluid collections. Pancreatic duct not dilated. GALLBLADDER: Surgically absent. ADRENAL GLANDS: 36 mm left adrenal mass. Stable. RIGHT KIDNEY AND URETER: No solid masses. No significant calcifications. No hydronephrosis or hyd roureter. LEFT KIDNEY AND URETER: Atrophic. No significant calcifications. No hydronephrosis. AORTA AND VESSELS: A 52 mm abdominal aortic aneurysm with endograft. RETROPERITONEUM: No retroperitoneal adenopathy, hemorrhage or masses. BOWEL AND PERITONEAL CAVITY: There are dilated fluid-filled loops of bowel. The stomach is distended . Proximal small bowel is distended. There is some fluid in the colon. There is some free fluid ar ound the liver and there is some free fluid in the pelvis. APPENDIX: Surgically absent. PELVIS: No mass. No free fluid. Normal bladder. ABDOMINAL WALL: No masses. No hernias. BONES: No significant or acute findings. OTHER: No other significant finding. IMPRESSION: 1. Small right pleural effusion. 2. Stable left adrenal mass. 3. Atrophic left kidney. 4. Partial small bowel obstruction. There is also some fluid in the colon. 5. Small amount of ascites. TECHNICAL DOCUMENTATION: JOB ID: [id number] Quality ID # [id number]: Final reports with documentation of one or more dose reduction techniques (e.g., Au tomated exposure control, adjustment of the mA and/or kV according to patient size, use of iterative reconstruction technique) 2010 [employer]- All Rights Reserved Reading location - IP/workstation name: [email or web address]
[2019-01-17] MEDS: ATORVASTATIN CALCIUM 40 MG TABLET PO SCH (22:59)
[2019-01-18] MEDS: MORPHINE SULFATE 10 MG/ML INJ IV PRN ×5 (00:45→19:16)
[2019-01-18] MEDS: OXYCODONE-ACETAMINOPHEN 5-325 MG TABLET PO SCH ×2 (03:45→09:09)
[2019-01-18] MEDS: PROMETHAZINE HCL INJ 25 MG/1 ML VIAL IV PRN ×4 (04:08→21:10)
[2019-01-18] MEDS: RINGERS SOLUTION,LACTATED 1,000 ML IV PRN (04:11)
[2019-01-18] MEDS: GABAPENTIN 300 MG CAPSULE PO SCH (06:43)
[2019-01-18] MEDS: HEPARIN SOD (PORCINE) 5,000 UNIT/ML 1 ML VIAL SUBCUT SCH ×3 (06:43→21:12)
[2019-01-18] MEDS: TIZANIDINE HCL 4 MG TABLET PO SCH (06:44)
[2019-01-18] MEDS: PANTOPRAZOLE SODIUM 40 MG TABLET.DR PO SCH (07:46)
[2019-01-18] MEDS: FLUTICASONE/VILANTEROL 100-25 MCG/DOSE IH SCH (09:09)
[2019-01-18] MEDS: AMPICILLIN TRIHYD 500 MG CAPSULE PO SCH (09:09)
[2019-01-18] MEDS: NORMAL SALINE 10 ML SDV (SCHEDULED) IV SCH ×2 (09:10→21:13)
[2019-01-18] MEDS ORDERED: LOPERAMIDE HCL 2 MG CAPSULE NG PRN (13:00)
[2019-01-18] MEDS ORDERED: PHARMACY COMMUNICATION ORDER MC NR (13:00)
[2019-01-18] MEDS: GABAPENTIN 300 MG CAPSULE NG SCH ×2 (13:35→21:08)
[2019-01-18] MEDS: TIZANIDINE HCL 4 MG TABLET NG SCH ×2 (13:36→21:08)
--- NOTE | 2019-01-18 13:55 | PDOC PROGRESS REPORT ---
Subjective Progress Note for:: 01/18/19 Subjective:: Patient's diarrhea is improved but still persistent. Patient complains of some abdominal pain. Reason For Visit: SEVERE SEPSIS WITH SEPTIC SHOCK Physical Exam Vital Signs: Temp Pulse Resp BP Pulse Ox 97.5 F 66 10 L 113/52 L 92 01/18/19 07:42 01/18/19 07:42 01/18/19 07:42 01/18/19 07:42 01/18/19 07:42 Intake & Output 01/17/19 01/18/19 01/19/19 06:59 06:59 06:59 Intake Total 1830 1317 Output Total 650 1200 Balance 1180 117 Weight 76.5 kg 83.6 kg 83.6 kg General appearance: PRESENT: no acute distress Eye exam: PRESENT: conjunctiva pink Mouth exam: PRESENT: moist Neck exam: ABSENT: JVD Respiratory exam: PRESENT: clear to auscultation abraham Cardiovascular exam: PRESENT: +S1 Vascular exam: PRESENT: normal capillary refill GI/Abdominal exam: PRESENT: distended, soft, tenderness. ABSENT: guarding, rebound, rigid Rectal exam: PRESENT: other - rectal tube Musculoskeletal exam: ABSENT: ambulatory Neurological exam: PRESENT: alert, awake, oriented to person, oriented to place Psychiatric exam: PRESENT: anxious Results Laboratory Results: 01/17/19 05:45 01/17/19 05:45 01/10/19 01/10/19 19:47 19:47 Creatine Kinase 38 CK-MB (CK-2) 0.69 Troponin I < 0.012 Impressions: Chest X-Ray 01/10/19 00:00 IMPRESSION: No acute abnormality is identified. Guidance Fluoroscopy 01/11/19 00:00 IMPRESSION: SUCCESSFUL PLACEMENT OF A 5 FR DUAL LUMEN 33 CM PICC IN THE RIGHT BASILIC VEIN. Interventional Vascular Procedure 01/11/19 00:00 IMPRESSION: SUCCESSFUL PLACEMENT OF A 5 FR DUAL LUMEN 33 CM PICC IN THE RIGHT BASILIC VEIN. PICC Line Insertion 01/11/19 00:00 IMPRESSION: SUCCESSFUL PLACEMENT OF A 5 FR DUAL LUMEN 33 CM PICC IN THE RIGHT BASILIC VEIN. 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 NO APPARENT ACUTE FINDINGS. Abdomen/Pelvis CT 01/17/19 00:00 IMPRESSION: 1. Small right pleural effusion. 2. Stable left adrenal mass. 3. Atrophic left kidney. 4. Partial small bowel obstruction. There is also some fluid in the colon. 5. Small amount of ascites. Assessment and Plan - Diagnosis (1) Partial small bowel obstruction Is this a current diagnosis for this admission?: Yes Plan: CT of the abdomen and pelvis showing partial small bowel obstruction. Surgery consulted NG tube recommended per patient's refused per nurse Patient reported to have had some formed bowel movement today (2) Diarrhea Qualifiers: Diarrhea type: functional diarrhea Qualified Code(s): K59.1 - Functional diarrhea Is this a current diagnosis for this admission?: Yes Plan: I suspect that patient has diarrhea is likely secondary to a post infectious irritable bowel syndrome from a recently resolved C. difficile infection. Con tinue Imodium. Rectal tube removed. (3) Mechanical low back pain Is this a current diagnosis for this admission?: Yes Plan: 2/2 Degenerative joint disease of lumbar spine. Continue with home dose of Percocet. (4) Chronic pain disorder Is this a current diagnosis for this admission?: Yes Plan: Continue with home dose of Percocet (5) Decubitus ulcer of sacral region Qualifiers: Pressure injury stage: unspecified pressure injury stage Qualified Code(s): L89.159 - Pressure ulcer of sacral region, unspecified stage Is this a current diagnosis for this admission?: Yes Plan: On Ampicillin for 2 more days Continue with wound dressing wound care Rectal tube still in place to prevent re-contamination of wound. Encourage adequate nutrition. Dietary consult. - Time Time Spent with patient: 25-34 minutes
[2019-01-18] MEDS: OXYCODONE-ACETAMINOPHEN 5-325 MG TABLET NG SCH ×2 (14:08→21:07)
[2019-01-18] MEDS: ONDANSETRON HCL INJ/PF 4 MG/2 ML SDV IV PRN ×2 (15:37→19:45)
--- NOTE | 2019-01-18 18:53 | PDOC CONSULTATION ---
Consultation Consult Date: 01/18/19 Provider Consulted: ALIYA SMART Consult reason:: Partial small bowel obstruction on CAT scan History of Present Illness Admission Date/PCP: 01/11/19 00:02 LETA PRIEST DO History of Present Illness: KAREN MALDONADO is a 58 year old female with COPD, hypertension, hyperlipidemia, stage IV chronic kidney disease not on hemodialysis, left middle cerebral artery stroke, osteoarthritis, chronic pain with opiate dependence, stage IV sacral decubitus and initially admitted on 01/10/2019 for urosepsis and septic shock and admitted to the intensive care unit on vasopressors. Patient improved and subsequently transferred to the regular floor on [facility] of 01/11/2019. Patient then had diarrhea and a rectal tube was placed also to avoid contamination of the sacral decubitus. There is a question of C. difficile colitis but the PCR was negative for toxin noted on 12/2418 and the anti C DIF medication was discontinued and started on Imodium. CT scan of the abdomen was done on 01/17/2019 which showed partial small bowel obstruction but there is some fluid in the colon. Surgery was consulted today for the CAT scan findings. The rectal tube was disc ontinued this morning but patient had soft bowel movement afterwards. Patient refused to have an NG tube placed at this time. Past Medical History Cardiac Medical History: Reports: Hyperlipidema, Hypertension, Other - History of sub-renal abdominal aortic aneurysm Denies: Atrial Fibrillation, Congestive Heart Failure, Coronary Artery Disease, Myocardial Infarction Pulmonary Medical History: Reports: Bronchitis, Chronic Obstructive Pulmonary Disease (COPD), Pneumonia EENT Medical History: Denies: Cataracts, Ears - Hearing aids Neurological Medical History: Reports: Ischemic CVA Denies: Hemorrhagic CVA, Seizures Endocrine Medical History: Denies: Diabetes Mellitus Type 1, Diabetes Mellitus Type 2, Hyperthyroidism, Hypothyroidism Renal/ Medical History: Reports: Other - Chronic kidney infections Denies: Chronic Kidney Disease, Nephrolithiasis Malignancy Medical History: Reports: Breast Cancer GI Medical History: Reports: Diverticulitis, Other - Chronic diarrhea Denies: Cirrhosis, Crohn's Disease, Hepatitis, Ulcerative Colitis Musculoskeltal Medical History: Reports: Arthritis Denies: Gout Skin Medical History: Reports: Other - Decubitus ulcers Denies: Eczema, Psoriasis Psychiatric Medical History: Reports: Depression, Substance Abuse, Tobacco Dependency Denies: Alcohol Dependency Traumatic Medical History: Denies: Gunshot Wound, Pneumothorax Hematology: Denies: Anemia, Sickle Cell Disease, Bleeding Tendencies Infectious Medical History: Reports: HIV Past Surgical History Past Surgical History: Reports: Section - X3, Cholecystectomy, Hysterectomy, Tubal Ligation Social History Lives with: Spouse/Significant other Smoking Status: Current Every Day Smoker Electronic Cigarette use?: No Frequency of Alcohol Use: None Hx Recreational Drug Use: No Drugs: None Hx Prescription Drug Abuse: Yes - Advance Directive Resuscitation Status: Full Code Family History Family History: COPD, Hypertension Parental Family History Reviewed: Yes Children Family History Reviewed: No Sibling(s) Family History Reviewed.: No Medication/Allergy Home Medications: Lisinopril [Prinivil 10 mg Tablet] 10 mg PO DAILY 12/27/18 Oxycodone HCl/Acetaminophen [Percocet 10-325 mg Tablet] 1 each PO Q6HP PRN 12/27/18 Atorvastatin Calcium [Lipitor 40 mg Tablet] 40 mg PO QHS 01/11/19 Diclofenac Sodium [Voltaren] 1 applic TP QIDP PRN 01/11/19 Fluticasone/Salmeterol [Advair 100-50 Diskus 14 Dose/Diskus] 1 inh IH Q12 01/11/19 Naproxen 500 mg PO Q12 01/11/19 Pantoprazole Sodium [Protonix [address] Tablet] 40 mg PO QAM 01/11/19 Allergies/Adverse Reactions: No Known Allergies Allergy (Verified 05/15/18 10:38) Review of Systems Constitutional: PRESENT: other - Denies fever no chills Gastrointestinal: PRESENT: abdominal pain - Mild abdominal pain, nausea Physical Exam Vital Signs: Temp Pulse Resp BP Pulse Ox 97.3 F 74 16 119/59 L 95 01/18/19 15:01 01/18/19 15:01 01/18/19 15:01 01/18/19 15:01 01/18/19 15:01 Intake & Output 01/17/19 01/18/19 01/19/19 06:59 06:59 06:59 Intake Total 1830 1317 Output Total 650 1200 Balance 1180 117 Weight 76.5 kg 83.6 kg 83.6 kg General appearance: PRESENT: no acute distress Head exam: PRESENT: atraumatic Mouth exam: PRESENT: moist Neck exam: PRESENT: full ROM Respiratory exam: PRESENT: clear to auscultation abraham Cardiovascular exam: PRESENT: RRR Pulses: PRESENT: normal radial pulses Vascular exam: PRESENT: normal capillary refill GI/Abdominal exam: PRESENT: distended - Slightly distended, soft, tenderness - Mild diffuse tenderness Rectal exam: PRESENT: deferred Neurological exam: PRESENT: alert, oriented to person, oriented to place, oriented to time, oriented to situation Psychiatric exam: PRESENT: depressed Skin exam: PRESENT: normal color, warm Results Laboratory Results: 01/17/19 05:45 01/17/19 05:45 01/10/19 01/10/19 19:47 19:47 Creatine Kinase 38 CK-MB (CK-2) 0.69 Troponin I < 0.012 Impressions: Chest X-Ray 01/10/19 00:00 IMPRESSION: No acute abnormality is identified. Guidance Fluoroscopy 01/11/19 00:00 IMPRESSION: SUCCESSFUL PLACEMENT OF A 5 FR DUAL LUMEN 33 CM PICC IN THE RIGHT BASILIC VEIN. Interventional Vascular Procedure 01/11/19 00:00 IMPRESSION: SUCCESSFUL PLACEMENT OF A 5 FR DUAL LUMEN 33 CM PICC IN THE RIGHT BASILIC VEIN. PICC Line Insertion 01/11/19 00:00 IMPRESSION: SUCCESSFUL PLACEMENT OF A 5 FR DUAL LUMEN 33 CM PICC IN THE RIGHT BASILIC VEIN. 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 NO APPARENT ACUTE FINDINGS. Abdomen/Pelvis CT 01/17/19 00:00 IMPRESSION: 1. Small right pleural effusion. 2. Stable left adrenal mass. 3. Atrophic left kidney. 4. Partial small bowel obstruction. There is also some fluid in the colon. 5. Small amount of ascites. Assessment & Plan - Diagnosis (1) Partial small bowel obstruction Is this a current diagnosis for this admission?: Yes (2) Abdominal pain Qualifiers: Abdominal location: upper abdomen, unspecified Qualified Code(s): R10.10 - Upper abdominal pain, unspecified Is this a current diagnosis for this admission?: Yes (3) Diarrhea Qualifiers: Diarrhea type: functional diarrhea Qualified Code(s): K59.1 - Functional diarrhea Is this a current diagnosis for this admission?: Yes - Time Time Spent: 30 to 50 Minutes - Inpatient Certification Medical Necessity: Need Close Monitoring Due to Risk of Patient Decompensation, Need For IV Fluids - Plan Summary Plan Summary: 66-year-old female admitted for urosepsis and septic shock partly due to dehydration and diarrhea. She was in the ICU since 01/10/2019 and transferred to the floor on 01/11/19.. Had a CAT scan of the abdomen yesterday which showed partial small bowel obstruction with fluid in the colon. She was taken of the anti-C. difficile regimen and placed on Imodium 01/17/2019. Surgery has been consulted for CAT scan finding of partial small bowel obstruction. I ordered an NG tube placement but patient refused.The the rectal tube that was placed a few days ago was then removed today and followed by soft bowel movement. On examination today, her abdomen is slightly distended but soft with minimal tenderness. She does have some mild nausea. Impression: Partial small bowel obstruction likely due to ileus aggravated by use of Imodium. Imodium may have stopped the diarrhea Plans: Stop the Imodium. Insert NG tube when the patient develops more nausea and vomiting. Hydrate well with electrolyte corrections if needed.
[2019-01-18] MEDS: AMPICILLIN TRIHYD 500 MG CAPSULE NG SCH (21:09)
[2019-01-18] MEDS: ATORVASTATIN CALCIUM 40 MG TABLET NG SCH (21:11)
[2019-01-19] MEDS: MORPHINE SULFATE 10 MG/ML INJ IV PRN ×2 (00:15→06:44)
[2019-01-19] MEDS: OXYCODONE-ACETAMINOPHEN 5-325 MG TABLET NG SCH ×3 (03:14→19:55)
[2019-01-19] MEDS: DEXTROSE 5%-1/2 NORMAL SALINE 1,000 ML IV PRN ×2 (07:41→20:59)
[2019-01-19 07:59] LABS: ABSOLUTE LYMPHOCYTES (AUTO) 2.7 10^3/uL (0.5-4.7); ABSOLUTE MONOCYTES (AUTO) 0.3 10^3/uL (0.1-1.4); BASOPHILS % (AUTO) 0.2 % (0-2); EOSINOPHILS % (AUTO) 0.3 % (0-6); HEMATOCRIT 29.3 % (36.0-47.0); HEMOGLOBIN 9.5 g/dL (12.0-15.5); LYMPHOCYTES % (AUTO) 29.4 % (13-45); MEAN CORPUSCULAR HEMOGLOBIN 26.4 pg (27.0-33.4); MEAN CORPUSCULAR HGB CONC 32.3 g/dL (32.0-36.0); MEAN CORPUSCULAR VOLUME 82 fl (80-97); MONOCYTES % (AUTO) 3.7 % (3-13); PLATELET COUNT 332 10^3/uL (150-450); RED BLOOD COUNT 3.59 10^6/uL (3.72-5.28); RED CELL DISTRIBUTION WIDTH 16.6 % (11.5-14.0); SEGMENTED NEUTROPHILS % (AUTO) 66.4 % (42-78); TOTAL CELLS COUNTED % (AUTO) 100 %; WHITE BLOOD COUNT 9.1 10^3/uL (4.0-10.5)
[2019-01-19] MEDS ORDERED: PANTOPRAZOLE SODIUM 40 MG PACKET.DR NG SCH (08:00)
[2019-01-19 08:18] LABS: ANION GAP 8 (5-19); BLOOD UREA NITROGEN 9 mg/dL (7-20); CALCIUM 7.7 mg/dL (8.4-10.2); CARBON DIOXIDE 23 mmol/L (22-30); CHLORIDE 102 mmol/L (98-107); POTASSIUM 4.1 mmol/L (3.6-5.0)
[2019-01-19 08:23] LABS: GLUCOSE 46 mg/dL (75-110)
[2019-01-19] MEDS: PROMETHAZINE HCL INJ 25 MG/1 ML VIAL IV PRN ×2 (09:54→20:59)
--- NOTE | 2019-01-19 10:05 | PDOC PROGRESS REPORT ---
Subjective Progress Note for:: 01/19/19 Reason For Visit: SEVERE SEPSIS WITH SEPTIC SHOCK Physical Exam Vital Signs: Temp Pulse Resp BP Pulse Ox 98.3 F 88 15 133/59 H 94 01/19/19 00:36 01/19/19 00:36 01/19/19 00:36 01/19/19 00:36 01/19/19 00:36 Intake & Output 01/18/19 01/19/19 01/20/19 06:59 06:59 06:59 Intake Total 1317 Output Total 1200 Balance 117 Weight 83.6 kg 83.6 kg General appearance: PRESENT: disheveled, mild distress Eye exam: PRESENT: EOMI Mouth exam: PRESENT: dry mucosa Teeth exam: PRESENT: poor dentation Neck exam: PRESENT: full ROM Respiratory exam: PRESENT: unlabored Cardiovascular exam: PRESENT: RRR GI/Abdominal exam: PRESENT: diminished bowel sounds, distended Rectal exam: PRESENT: deferred Gentrourinary exam: PRESENT: indwelling catheter Extremities exam: PRESENT: full ROM Neurological exam: PRESENT: alert, awake, oriented to person, oriented to place Psychiatric exam: PRESENT: anxious Skin exam: PRESENT: dry Results Laboratory Results: 01/19/19 07:35 01/19/19 07:35 01/19/19 01/19/19 07:35 07:35 WBC 9.1 RBC 3.59 L Hgb 9.5 L Hct 29.3 L MCV 82 MCH 26.4 L MCHC 32.3 RDW 16.6 H Plt Count 332 Seg Neutrophils % 66.4 Sodium 133.4 L Potassium 4.1 Chloride 102 Carbon Dioxide 23 Anion Gap 8 BUN 9 Creatinine 0.78 Est GFR ( Amer) > 60 Glucose 46 L Calcium 7.7 L Magnesium 1.4 L 01/10/19 01/10/19 19:47 19:47 Creatine Kinase 38 CK-MB (CK-2) 0.69 Troponin I < 0.012 Impressions: Chest X-Ray 01/10/19 00:00 IMPRESSION: No acute abnormality is identified. Guidance Fluoroscopy 01/11/19 00:00 IMPRESSION: SUCCESSFUL PLACEMENT OF A 5 FR DUAL LUMEN 33 CM PICC IN THE RIGHT BASILIC VEIN. Interventional Vascular Procedure 01/11/19 00:00 IMPRESSION: SUCCESSFUL PLACEMENT OF A 5 FR DUAL LUMEN 33 CM PICC IN THE RIGHT BASILIC VEIN. PICC Line Insertion 01/11/19 00:00 IMPRESSION: SUCCESSFUL PLACEMENT OF A 5 FR DUAL LUMEN 33 CM PICC IN THE RIGHT BASILIC VEIN. 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 NO APPARENT ACUTE FINDINGS. Abdomen/Pelvis CT 01/17/19 00:00 IMPRESSION: 1. Small right pleural effusion. 2. Stable left adrenal mass. 3. Atrophic left kidney. 4. Partial small bowel obstruction. There is also some fluid in the colon. 5. Small amount of ascites. Assessment & Plan - Time Time Spent with patient: 35 or more minutes - Plan Summary Plan Summary: still with diarrhea vomiting ct reviwed c/w partial sbo vs ileus recommend ng tube npo hydration
[2019-01-19] MEDS ORDERED: DEXTROSE 40% GEL 15 GM TUBE PO PRN ×2 (10:06)
[2019-01-19] MEDS ORDERED: DEXTROSE 50%-WATER 25 GM/50 ML DISP.SYRIN IV PRN (10:06)
[2019-01-19] MEDS ORDERED: GLUCAGON,HUMAN RECOMB 1 MG INJ SUBCUT PRN (10:06)
[2019-01-19] MEDS ORDERED: PHARMACY COMMUNICATION ORDER MC NR (10:15)
[2019-01-19] MEDS ORDERED: LORAZEPAM INJ 2 MG/1 ML VIAL ONE (10:51)
[2019-01-19] MEDS ORDERED: LORAZEPAM INJ 2 MG/1 ML VIAL IV ONE (11:30)
[2019-01-19] MEDS: GABAPENTIN 300 MG CAPSULE NG SCH ×3 (11:41→22:25)
[2019-01-19] MEDS: FLUTICASONE/VILANTEROL 100-25 MCG/DOSE IH SCH (11:42)
[2019-01-19] MEDS: TIZANIDINE HCL 4 MG TABLET NG SCH ×2 (11:42→15:59)
[2019-01-19] MEDS: AMPICILLIN SODIUM 500 MG in NORMAL SALINE 25 ML IV SCH ×2 (11:52→22:24)
[2019-01-19] MEDS: PANTOPRAZOLE SODIUM 40 MG VIAL IV SCH (11:52)
[2019-01-19] MEDS: HEPARIN SOD (PORCINE) 5,000 UNIT/ML 1 ML VIAL SUBCUT SCH ×3 (11:56→21:01)
[2019-01-19] MEDS: NORMAL SALINE 10 ML SDV (SCHEDULED) IV SCH ×2 (11:56→21:01)
[2019-01-19] MEDS: AMPICILLIN TRIHYD 500 MG CAPSULE NG SCH (11:58)
[2019-01-19] MEDS ORDERED: BENZOCAINE 20% AEROSOL SPRAY 60 GM TP PRN (12:20)
--- NOTE | 2019-01-19 13:05 | PDOC PROGRESS REPORT ---
Subjective Progress Note for:: 01/19/19 Subjective:: Patient had episode of vomiting last night and again today. Discussed with patient the need for an NG tube patient said she would consider it. Notified that patient is now agreeing to NG tube placement. Reason For Visit: SEVERE SEPSIS WITH SEPTIC SHOCK Physical Exam Vital Signs: Temp Pulse Resp BP Pulse Ox 97.9 F 80 16 145/66 H 95 01/19/19 08:00 01/19/19 08:00 01/19/19 08:00 01/19/19 08:00 01/19/19 08:00 Intake & Output 01/18/19 01/19/19 01/20/19 06:59 06:59 06:59 Intake Total 1317 Output Total 1200 Balance 117 Weight 83.6 kg 83.6 kg General appearance: PRESENT: mild distress Eye exam: PRESENT: EOMI Mouth exam: PRESENT: moist Neck exam: ABSENT: JVD Respiratory exam: PRESENT: clear to auscultation abraham Cardiovascular exam: PRESENT: RRR, +S1, +S2 GI/Abdominal exam: PRESENT: distended, soft, tenderness. ABSENT: guarding, rebound, rigid Rectal exam: PRESENT: deferred Musculoskeletal exam: ABSENT: ambulatory Neurological exam: PRESENT: alert, awake, oriented to person, oriented to place, oriented to situation Results Laboratory Results: 01/19/19 07:35 01/19/19 07:35 01/19/19 01/19/19 07:35 07:35 WBC 9.1 RBC 3.59 L Hgb 9.5 L Hct 29.3 L MCV 82 MCH 26.4 L MCHC 32.3 RDW 16.6 H Plt Count 332 Seg Neutrophils % 66.4 Sodium 133.4 L Potassium 4.1 Chloride 102 Carbon Dioxide 23 Anion Gap 8 BUN 9 Creatinine 0.78 Est GFR ( Amer) > 60 Glucose 46 L Calcium 7.7 L Magnesium 1.4 L 01/10/19 01/10/19 19:47 19:47 Creatine Kinase 38 CK-MB (CK-2) 0.69 Troponin I < 0.012 Impressions: Chest X-Ray 01/10/19 00:00 IMPRESSION: No acute abnormality is identified. Guidance Fluoroscopy 01/11/19 00:00 IMPRESSION: SUCCESSFUL PLACEMENT OF A 5 FR DUAL LUMEN 33 CM PICC IN THE RIGHT BASILIC VEIN. Interventional Vascular Procedure 01/11/19 00:00 IMPRESSION: SUCCESSFUL PLACEMENT OF A 5 FR DUAL LUMEN 33 CM PICC IN THE RIGHT BASILIC VEIN. PICC Line Insertion 01/11/19 00:00 IMPRESSION: SUCCESSFUL PLACEMENT OF A 5 FR DUAL LUMEN 33 CM PICC IN THE RIGHT BASILIC VEIN. 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 NO APPARENT ACUTE FINDINGS. Abdomen/Pelvis CT 01/17/19 00:00 IMPRESSION: 1. Small right pleural effusion. 2. Stable left adrenal mass. 3. Atrophic left kidney. 4. Partial small bowel obstruction. There is also some fluid in the colon. 5. Small amount of ascites. Assessment and Plan - Diagnosis (1) Partial small bowel obstruction Is this a current diagnosis for this admission?: Yes Plan: CT of the abdomen and pelvis showing partial small bowel obstruction. Surgery following. Recommendations appreciated. NG tube placement discussed with the patient N.p.o. IV fluids hydration (2) Diarrhea Qualifiers: Diarrhea type: functional diarrhea Qualified Code(s): K59.1 - Functional diarrhea Is this a current diagnosis for this admission?: Yes Plan: Could be secondary to postinfectious irritable bowel syndrome versus overflow diarrhea from small bowel obstruction Currently improved at this time (3) Mechanical low back pain Is this a current diagnosis for this admission?: Yes Plan: 2/2 Degenerative joint disease of lumbar spine. Continue with home dose of Percocet. Will need to limits opioids given his sbo (4) Chronic pain disorder Is this a current diagnosis for this admission?: Yes Plan: Discussed limiting Percocet doses given small bowel obstruction (5) Decubitus ulcer of sacral region Qualifiers: Pressure injury stage: unspecified pressure injury stage Qualified Code(s): L89.159 - Pressure ulcer of sacral region, unspecified stage Is this a current diagnosis for this admission?: Yes Plan: On Ampicillin for 1 more day Continue with wound dressing wound care Encourage adequate nutrition. Dietary consult. - Time Time Spent with patient: 15-24 minutes
--- NOTE | 2019-01-19 14:11 | RADIOLOGY REPORT (SQ) ---
EXAM DESCRIPTION: KUB/ABDOMEN (SINGLE VIEW) COMPLETED DATE/TIME: 01/19/2019 1:46 pm REASON FOR STUDY: Check Placement of NG Tube COMPARISON: None. NUMBER OF VIEWS: One view. TECHNIQUE: Supine radiographic image of the abdomen acquired. LIMITATIONS: None. FINDINGS: BOWEL GAS PATTERN: Normal bowel gas pattern. No dilated loops. CALCIFICATIONS: No suspicious calcifications. SOFT TISSUES: No gross mass or suggestion of organomegaly. HARDWARE: NG tube tip in the stomach. . Aortic stent graft. BONES: No acute fracture. No worrisome bone lesions. OTHER: No other significant finding. IMPRESSION: NG tube tip in the stomach. TECHNICAL DOCUMENTATION: JOB ID: [id number] [employer]- All Rights Reserved Reading location - IP/workstation name: [email or web address]
[2019-01-19] MEDS: MAGNESIUM SULFATE/D5W 1 GM/100 ML RTUPB IV SCH ×2 (14:21→15:47)
[2019-01-19] MEDS ORDERED: KETOROLAC TROMETHAMINE INJ/PF 30 MG/1 ML SDV IV ONE (16:00)
[2019-01-19] MEDS: OXYCODONE-ACETAMINOPHEN 5-325 MG TABLET NG PRN (17:50)
[2019-01-19] MEDS: NYSTATIN TOPICAL POWDER 15 GM TP SCH (17:50)
[2019-01-19] MEDS: KETOROLAC TROMETHAMINE INJ/PF 30 MG/1 ML SDV IV SCH (20:58)
[2019-01-20] MEDS: OXYCODONE-ACETAMINOPHEN 5-325 MG TABLET NG PRN ×4 (00:27→18:50)
[2019-01-20] MEDS: PROMETHAZINE HCL INJ 25 MG/1 ML VIAL IV PRN ×2 (04:40→16:49)
[2019-01-20] MEDS: KETOROLAC TROMETHAMINE INJ/PF 30 MG/1 ML SDV IV SCH ×4 (04:40→21:53)
[2019-01-20 04:57] LABS: ABSOLUTE EOSINOPHILS # (AUTO) 0.1 10^3/uL (0.0-0.6); ABSOLUTE LYMPHOCYTES (AUTO) 1.7 10^3/uL (0.5-4.7); ABSOLUTE MONOCYTES (AUTO) 0.3 10^3/uL (0.1-1.4); ABSOLUTE NEUT (AUTO) 10.2 10^3/uL (1.7-8.2); BASOPHILS % (AUTO) 0.2 % (0-2); EOSINOPHILS % (AUTO) 0.5 % (0-6); HEMATOCRIT 24.1 % (36.0-47.0); LYMPHOCYTES % (AUTO) 14.1 % (13-45); MEAN CORPUSCULAR HEMOGLOBIN 26.1 pg (27.0-33.4); MEAN CORPUSCULAR HGB CONC 32.1 g/dL (32.0-36.0); MEAN CORPUSCULAR VOLUME 81 fl (80-97); MONOCYTES % (AUTO) 2.6 % (3-13); PLATELET COUNT 249 10^3/uL (150-450); RED BLOOD COUNT 2.96 10^6/uL (3.72-5.28); RED CELL DISTRIBUTION WIDTH 17.1 % (11.5-14.0); SEGMENTED NEUTROPHILS % (AUTO) 82.6 % (42-78); TOTAL CELLS COUNTED % (AUTO) 100 %; WHITE BLOOD COUNT 12.4 10^3/uL (4.0-10.5)
[2019-01-20 04:59] LABS: HEMOGLOBIN 7.7 g/dL (12.0-15.5)
[2019-01-20 05:25] LABS: ALBUMIN 2.2 g/dL (3.5-5.0); ALKALINE PHOSPHATASE 70 U/L (38-126); ANION GAP 8 (5-19); ASPARTATE AMINO TRANSFERASE 12 U/L (14-36); BILIRUBIN,DIRECT 0.2 mg/dL (0.0-0.4); BILIRUBIN,TOTAL 0.3 mg/dL (0.2-1.3); BLOOD UREA NITROGEN 6 mg/dL (7-20); CALCIUM 7.7 mg/dL (8.4-10.2); CARBON DIOXIDE 27 mmol/L (22-30); CHLORIDE 101 mmol/L (98-107); GLUCOSE 82 mg/dL (75-110); POTASSIUM 3.7 mmol/L (3.6-5.0); TOTAL PROTEIN 4.8 g/dL (6.3-8.2)
[2019-01-20] MEDS: DEXTROSE 5%-1/2 NORMAL SALINE 1,000 ML IV PRN ×2 (06:40→16:50)
[2019-01-20] MEDS: NYSTATIN TOPICAL POWDER 15 GM TP SCH ×2 (06:44→16:51)
[2019-01-20] MEDS: GABAPENTIN 300 MG CAPSULE NG SCH ×3 (06:44→21:55)
[2019-01-20] MEDS: HEPARIN SOD (PORCINE) 5,000 UNIT/ML 1 ML VIAL SUBCUT SCH ×3 (06:46→21:53)
[2019-01-20] MEDS: PANTOPRAZOLE SODIUM 40 MG VIAL IV SCH (09:46)
[2019-01-20] MEDS: AMPICILLIN SODIUM 500 MG in NORMAL SALINE 25 ML IV SCH ×2 (09:46→21:51)
[2019-01-20] MEDS: NORMAL SALINE 10 ML SDV (SCHEDULED) IV SCH ×2 (09:49→21:52)
[2019-01-20 09:50] LABS: ABSOLUTE EOSINOPHILS # (AUTO) 0.1 10^3/uL (0.0-0.6); ABSOLUTE LYMPHOCYTES (AUTO) 1.8 10^3/uL (0.5-4.7); ABSOLUTE MONOCYTES (AUTO) 0.4 10^3/uL (0.1-1.4); ABSOLUTE NEUT (AUTO) 13.9 10^3/uL (1.7-8.2); BASOPHILS % (AUTO) 0.2 % (0-2); EOSINOPHILS % (AUTO) 0.3 % (0-6); HEMATOCRIT 28.5 % (36.0-47.0); HEMOGLOBIN 9.2 g/dL (12.0-15.5); LYMPHOCYTES % (AUTO) 11.4 % (13-45); MEAN CORPUSCULAR HEMOGLOBIN 26.4 pg (27.0-33.4); MEAN CORPUSCULAR HGB CONC 32.3 g/dL (32.0-36.0); MEAN CORPUSCULAR VOLUME 82 fl (80-97); MONOCYTES % (AUTO) 2.5 % (3-13); PLATELET COUNT 296 10^3/uL (150-450); RED CELL DISTRIBUTION WIDTH 16.4 % (11.5-14.0); SEGMENTED NEUTROPHILS % (AUTO) 85.6 % (42-78); TOTAL CELLS COUNTED % (AUTO) 100 %; WHITE BLOOD COUNT 16.2 10^3/uL (4.0-10.5)
[2019-01-20] MEDS: FLUTICASONE/VILANTEROL 100-25 MCG/DOSE IH SCH (09:50)
[2019-01-20] MEDS ORDERED: BENZOCAINE/MENTHOL SORE THROAT LOZENGE BUCCAL PRN (10:54)
--- NOTE | 2019-01-20 10:54 | PDOC PROGRESS REPORT ---
Subjective Progress Note for:: 01/20/19 Reason For Visit: SEVERE SEPSIS WITH SEPTIC SHOCK Small bowel obstruction Physical Exam Vital Signs: Temp Pulse Resp BP Pulse Ox 97.2 F 86 17 158/70 H 94 01/20/19 08:01 01/20/19 08:01 01/20/19 08:01 01/20/19 08:01 01/20/19 08:01 Intake & Output 01/19/19 01/20/19 01/21/19 06:59 06:59 06:59 Intake Total 3218 Output Total 2250 Balance 968 Weight 83.6 kg 79.8 kg General appearance: PRESENT: no acute distress, mild distress Head exam: PRESENT: normocephalic Eye exam: PRESENT: EOMI Ear exam: PRESENT: normal external ear exam Mouth exam: PRESENT: moist Teeth exam: PRESENT: poor dentation Neck exam: PRESENT: full ROM Respiratory exam: PRESENT: clear to auscultation abraham Cardiovascular exam: PRESENT: RRR Pulses: PRESENT: +2 pedal pulses bilateral GI/Abdominal exam: PRESENT: other - Abdomen is softer minimal tenderness to palpation NG is functioning Rectal exam: PRESENT: deferred Extremities exam: PRESENT: full ROM Musculoskeletal exam: PRESENT: full ROM Neurological exam: PRESENT: alert, awake, oriented to person, oriented to place Psychiatric exam: PRESENT: agitated, anxious Skin exam: PRESENT: dry Results Laboratory Results: 01/20/19 09:35 01/20/19 04:40 01/20/19 01/20/19 01/20/19 04:40 04:40 09:35 WBC 12.4 H 16.2 H RBC 2.96 L 3.50 L Hgb 7.7 L 9.2 L Hct 24.1 L 28.5 L MCV 81 82 MCH 26.1 L 26.4 L MCHC 32.1 32.3 RDW 17.1 H 16.4 H Plt Count 249 296 Seg Neutrophils % 82.6 H 85.6 H Sodium 135.6 L Potassium 3.7 Chloride 101 Carbon Dioxide 27 Anion Gap 8 BUN 6 L Creatinine 0.78 Est GFR ( Amer) > 60 Glucose 82 Calcium 7.7 L Magnesium 1.9 Total Bilirubin 0.3 AST 12 L Alkaline Phosphatase 70 Total Protein 4.8 L Albumin 2.2 L 01/10/19 01/10/19 19:47 19:47 Creatine Kinase 38 CK-MB (CK-2) 0.69 Troponin I < 0.012 Impressions: Chest X-Ray 01/10/19 00:00 IMPRESSION: No acute abnormality is identified. Guidance Fluoroscopy 01/11/19 00:00 IMPRESSION: SUCCESSFUL PLACEMENT OF A 5 FR DUAL LUMEN 33 CM PICC IN THE RIGHT BASILIC VEIN. Interventional Vascular Procedure 01/11/19 00:00 IMPRESSION: SUCCESSFUL PLACEMENT OF A 5 FR DUAL LUMEN 33 CM PICC IN THE RIGHT BASILIC VEIN. PICC Line Insertion 01/11/19 00:00 IMPRESSION: SUCCESSFUL PLACEMENT OF A 5 FR DUAL LUMEN 33 CM PICC IN THE RIGHT BASILIC VEIN. 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 NO APPARENT ACUTE FINDINGS. Abdomen/Pelvis CT 01/17/19 00:00 IMPRESSION: 1. Small right pleural effusion. 2. Stable left adrenal mass. 3. Atrophic left kidney. 4. Partial small bowel obstruction. There is also some fluid in the colon. 5. Small amount of ascites. KUB X-Ray 01/19/19 10:05 IMPRESSION: NG tube tip in the stomach. Assessment & Plan - Diagnosis (1) C. difficile colitis Is this a current diagnosis for this admission?: Yes (2) Diarrhea Qualifiers: Diarrhea type: functional diarrhea Qualified Code(s): K59.1 - Functional diarrhea Is this a current diagnosis for this admission?: Yes (3) Partial small bowel obstruction Is this a current diagnosis for this admission?: Yes - Time Time Spent with patient: 25-34 minutes - Plan Summary Plan Summary: Admitted with C. difficile and urinary sepsis now with partial small bowel obstruction. NG was placed yesterday with large output. NG continues to have approximately 700 cc of output per day. I will repeat her KUB today to assess for partial small bowel obstruction. Continue medical treatment for now patient may possibly need laparotomy for SBO.
--- NOTE | 2019-01-20 11:18 | PDOC PROGRESS REPORT ---
Subjective Progress Note for:: 01/20/19 Subjective:: Patient states that her abdominal pain and distention feels better. She still acknowledges back and abdominal pain. Patient reportedly had a moderate liquid bowel movement today. Patient denies any fevers cough, nausea. Patient would like to start eating but is agreeable after I explained that she needs to be n.p.o. to allow bowel rest. Reason For Visit: SEVERE SEPSIS WITH SEPTIC SHOCK Physical Exam Vital Signs: Temp Pulse Resp BP Pulse Ox 97.2 F 86 17 158/70 H 94 01/20/19 08:01 01/20/19 08:01 01/20/19 08:01 01/20/19 08:01 01/20/19 08:01 Intake & Output 01/19/19 01/20/19 01/21/19 06:59 06:59 06:59 Intake Total 3218 Output Total 2250 Balance 968 Weight 83.6 kg 79.8 kg General appearance: PRESENT: cooperative, other - Appears in less distress than before Eye exam: PRESENT: EOMI Mouth exam: PRESENT: moist Neck exam: ABSENT: JVD Respiratory exam: PRESENT: clear to auscultation abraham Cardiovascular exam: PRESENT: RRR, +S1, +S2 GI/Abdominal exam: PRESENT: distended - Less distended than before, soft, tenderness. ABSENT: guarding, rebound, rigid Rectal exam: PRESENT: deferred Neurological exam: PRESENT: alert, awake Results Laboratory Results: 01/20/19 09:35 01/20/19 04:40 01/20/19 01/20/19 01/20/19 04:40 04:40 09:35 WBC 12.4 H 16.2 H RBC 2.96 L 3.50 L Hgb 7.7 L 9.2 L Hct 24.1 L 28.5 L MCV 81 82 MCH 26.1 L 26.4 L MCHC 32.1 32.3 RDW 17.1 H 16.4 H Plt Count 249 296 Seg Neutrophils % 82.6 H 85.6 H Sodium 135.6 L Potassium 3.7 Chloride 101 Carbon Dioxide 27 Anion Gap 8 BUN 6 L Creatinine 0.78 Est GFR ( Amer) > 60 Glucose 82 Calcium 7.7 L Magnesium 1.9 Total Bilirubin 0.3 AST 12 L Alkaline Phosphatase 70 Total Protein 4.8 L Albumin 2.2 L 01/10/19 01/10/19 19:47 19:47 Creatine Kinase 38 CK-MB (CK-2) 0.69 Troponin I < 0.012 Impressions: Chest X-Ray 01/10/19 00:00 IMPRESSION: No acute abnormality is identified. Guidance Fluoroscopy 01/11/19 00:00 IMPRESSION: SUCCESSFUL PLACEMENT OF A 5 FR DUAL LUMEN 33 CM PICC IN THE RIGHT BASILIC VEIN. Interventional Vascular Procedure 01/11/19 00:00 IMPRESSION: SUCCESSFUL PLACEMENT OF A 5 FR DUAL LUMEN 33 CM PICC IN THE RIGHT BASILIC VEIN. PICC Line Insertion 01/11/19 00:00 IMPRESSION: SUCCESSFUL PLACEMENT OF A 5 FR DUAL LUMEN 33 CM PICC IN THE RIGHT BASILIC VEIN. 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 NO APPARENT ACUTE FINDINGS. Abdomen/Pelvis CT 01/17/19 00:00 IMPRESSION: 1. Small right pleural effusion. 2. Stable left adrenal mass. 3. Atrophic left kidney. 4. Partial small bowel obstruction. There is also some fluid in the colon. 5. Small amount of ascites. KUB X-Ray 01/19/19 10:05 IMPRESSION: NG tube tip in the stomach. Assessment and Plan - Diagnosis (1) Partial small bowel obstruction Is this a current diagnosis for this admission?: Yes Plan: Patient symptoms improved with NG tube placement. NG tube still draining significantly. Surgery following. To repeat KUB today. N.p.o. IV fluids hydration (2) Diarrhea Qualifiers: Diarrhea type: functional diarrhea Qualified Code(s): K59.1 - Functional diarrhea Is this a current diagnosis for this admission?: Yes Plan: Could be secondary to postinfectious irritable bowel syndrome versus overflow from small bowel obstruction (3) Mechanical low back pain Is this a current diagnosis for this admission?: Yes Plan: 2/2 Degenerative joint disease of lumbar spine. Limiting Percocet use to as needed given sbo. Morphine has since been discontinued. (4) Chronic pain disorder Is this a current diagnosis for this admission?: Yes (5) Decubitus ulcer of sacral region Qualifiers: Pressure injury stage: unspecified pressure injury stage Qualified Code(s): L89.159 - Pressure ulcer of sacral region, unspecified stage Is this a current diagnosis for this admission?: Yes Plan: Last dose of ampicillin today Continue with wound dressing wound care (6) Leukocytosis Qualifiers: Leukocytosis type: bandemia Qualified Code(s): D72.825 - Bandemia Is this a current diagnosis for this admission?: Yes Plan: Uncertain of cause but it may be secondary to current partial small bowel obstruction No other evidence of SIRS and no new focal source of infection We will continue to monitor and reculture if significant worsening - Time Time Spent with patient: 15-24 minutes
--- NOTE | 2019-01-20 11:49 | RADIOLOGY REPORT (SQ) ---
EXAM DESCRIPTION: KUB/ABDOMEN (SINGLE VIEW) COMPLETED DATE/TIME: 01/20/2019 11:37 am REASON FOR STUDY: sbo COMPARISON: 01/19/2019 NUMBER OF VIEWS: One view. TECHNIQUE: Supine radiographic image of the abdomen acquired. LIMITATIONS: None. FINDINGS: BOWEL GAS PATTERN: Few scattered mid abdominal small bowel loops. Relative paucity of gas in the colon. CALCIFICATIONS: No suspicious calcifications. SOFT TISSUES: No gross mass or suggestion of organomegaly. HARDWARE: NG tube in the stomach. Vascular stent. BONES: No acute fracture. No worrisome bone lesions. OTHER: No other significant finding. IMPRESSION: Mild dilatation of small bowel loops. Nasogastric tube in the stomach. No significant change. TECHNICAL DOCUMENTATION: JOB ID: [id number] [employer]- All Rights Reserved Reading location - IP/workstation name: [email or web address]
[2019-01-21] MEDS: KETOROLAC TROMETHAMINE INJ/PF 30 MG/1 ML SDV IV SCH ×4 (02:58→21:14)
[2019-01-21] MEDS: DEXTROSE 5%-1/2 NORMAL SALINE 1,000 ML IV PRN ×2 (03:22→14:51)
[2019-01-21] MEDS: OXYCODONE-ACETAMINOPHEN 5-325 MG TABLET NG PRN ×3 (05:49→20:35)
[2019-01-21] MEDS: GABAPENTIN 300 MG CAPSULE NG SCH ×3 (05:50→21:16)
[2019-01-21] MEDS: HEPARIN SOD (PORCINE) 5,000 UNIT/ML 1 ML VIAL SUBCUT SCH ×3 (05:50→21:15)
[2019-01-21] MEDS: NYSTATIN TOPICAL POWDER 15 GM TP SCH ×2 (05:54→20:35)
[2019-01-21 06:22] LABS: ABSOLUTE LYMPHOCYTES (AUTO) 1.5 10^3/uL (0.5-4.7); ABSOLUTE MONOCYTES (AUTO) 0.3 10^3/uL (0.1-1.4); ABSOLUTE NEUT (AUTO) 9.7 10^3/uL (1.7-8.2); BASOPHILS % (AUTO) 0.3 % (0-2); EOSINOPHILS % (AUTO) 0.3 % (0-6); HEMOGLOBIN 8.4 g/dL (12.0-15.5); MEAN CORPUSCULAR HEMOGLOBIN 26.2 pg (27.0-33.4); MEAN CORPUSCULAR HGB CONC 32.3 g/dL (32.0-36.0); MEAN CORPUSCULAR VOLUME 81 fl (80-97); MONOCYTES % (AUTO) 2.7 % (3-13); PLATELET COUNT 284 10^3/uL (150-450); RED BLOOD COUNT 3.22 10^6/uL (3.72-5.28); RED CELL DISTRIBUTION WIDTH 16.8 % (11.5-14.0); SEGMENTED NEUTROPHILS % (AUTO) 83.7 % (42-78); TOTAL CELLS COUNTED % (AUTO) 100 %; WHITE BLOOD COUNT 11.6 10^3/uL (4.0-10.5)
[2019-01-21 06:36] LABS: BLOOD UREA NITROGEN 3 mg/dL (7-20); CALCIUM 7.4 mg/dL (8.4-10.2); CARBON DIOXIDE 27 mmol/L (22-30); CHLORIDE 107 mmol/L (98-107); GLUCOSE 82 mg/dL (75-110); POTASSIUM 3.4 mmol/L (3.6-5.0)
[2019-01-21 06:39] LABS: ANION GAP 5 (5-19)
[2019-01-21] MEDS: POTASSI CL 20 MEQ/50 ML RIDER 20 MEQ/50 ML RTUPB IV SCH ×2 (08:06→11:12)
--- NOTE | 2019-01-21 09:42 | PDOC PROGRESS REPORT ---
Subjective Progress Note for:: 01/21/19 Reason For Visit: SEVERE SEPSIS WITH SEPTIC SHOCK Patient reports she is feeling better. She also reports she had flatus. The amount of nasogastric tube was incompletely recorded. Physical Exam Vital Signs: Temp Pulse Resp BP Pulse Ox 98.0 F 90 18 139/71 H 94 01/20/19 23:50 01/20/19 23:50 01/20/19 23:50 01/20/19 23:50 01/20/19 23:50 Intake & Output 01/20/19 01/21/19 01/22/19 06:59 06:59 06:59 Intake Total 3218 2025 25 Output Total 2250 2925 Balance 968 -900 25 Weight 79.8 kg 80.3 kg General appearance: PRESENT: other - Hospital bed. Marinelli catheter nasogastric tube in position GI/Abdominal exam: PRESENT: other - Abdomen is slightly distended but nontender no peritoneal signs no rigidity. Results Laboratory Results: 01/21/19 06:00 01/21/19 06:00 01/20/19 01/20/19 01/21/19 09:35 09:35 06:00 WBC 16.2 H RBC 3.50 L Hgb 9.2 L Hct 28.5 L MCV 82 MCH 26.4 L MCHC 32.3 RDW 16.4 H Plt Count 296 Seg Neutrophils % 85.6 H Sodium 137.9 Potassium 3.4 L Chloride 107 Carbon Dioxide 27 Anion Gap 5 BUN 3 L Creatinine 0.75 Est GFR ( Amer) > 60 Glucose 82 Calcium 7.4 L Blood Type O NEGATIVE Antibody Screen POSITIVE 01/21/19 06:00 WBC 11.6 H RBC 3.22 L Hgb 8.4 L Hct 26.0 L MCV 81 MCH 26.2 L MCHC 32.3 RDW 16.8 H Plt Count 284 Seg Neutrophils % 83.7 H Sodium Potassium Chloride Carbon Dioxide Anion Gap BUN Creatinine Est GFR ( Amer) Glucose Calcium Blood Type Antibody Screen 01/10/19 01/10/19 19:47 19:47 Creatine Kinase 38 CK-MB (CK-2) 0.69 Troponin I < 0.012 Impressions: Chest X-Ray 01/10/19 00:00 IMPRESSION: No acute abnormality is identified. Guidance Fluoroscopy 01/11/19 00:00 IMPRESSION: SUCCESSFUL PLACEMENT OF A 5 FR DUAL LUMEN 33 CM PICC IN THE RIGHT BASILIC VEIN. Interventional Vascular Procedure 01/11/19 00:00 IMPRESSION: SUCCESSFUL PLACEMENT OF A 5 FR DUAL LUMEN 33 CM PICC IN THE RIGHT BASILIC VEIN. PICC Line Insertion 01/11/19 00:00 IMPRESSION: SUCCESSFUL PLACEMENT OF A 5 FR DUAL LUMEN 33 CM PICC IN THE RIGHT BASILIC VEIN. 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 NO APPARENT ACUTE FINDINGS. Abdomen/Pelvis CT 01/17/19 00:00 IMPRESSION: 1. Small right pleural effusion. 2. Stable left adrenal mass. 3. Atrophic left kidney. 4. Partial small bowel obstruction. There is also some fluid in the colon. 5. Small amount of ascites. KUB X-Ray 01/20/19 00:00 IMPRESSION: Mild dilatation of small bowel loops. Nasogastric tube in the stomach. No significant change. Assessment & Plan - Diagnosis (1) Partial small bowel obstruction Is this a current diagnosis for this admission?: Yes Plan: Recommendations: 1. Continue nasogastric decompression 2. We will order a upper GI small bowel follow-through contrast study through the nasogastric tube with oral contrast to rule out chemical obstruction. (2) C. difficile colitis Is this a current diagnosis for this admission?: Yes - Time Time Spent with patient: 15-24 minutes
[2019-01-21] MEDS: PANTOPRAZOLE SODIUM 40 MG VIAL IV SCH (10:10)
[2019-01-21] MEDS: NORMAL SALINE 10 ML SDV (SCHEDULED) IV SCH ×2 (10:10→21:15)
[2019-01-21] MEDS: AMPICILLIN SODIUM 500 MG in NORMAL SALINE 25 ML IV SCH (10:13)
[2019-01-21] MEDS: FLUTICASONE/VILANTEROL 100-25 MCG/DOSE IH SCH (10:16)
--- NOTE | 2019-01-21 12:39 | PDOC PROGRESS REPORT ---
Subjective Progress Note for:: 01/21/19 Subjective:: Patient reportedly had some bowel movement yesterday. Patient states that her abdomen feels softer today. Passing gas. Denies fever chills shortness of breath. Reason For Visit: SEVERE SEPSIS WITH SEPTIC SHOCK Physical Exam Vital Signs: Temp Pulse Resp BP Pulse Ox 98.0 F 90 18 139/71 H 94 01/20/19 23:50 01/20/19 23:50 01/20/19 23:50 01/20/19 23:50 01/20/19 23:50 Intake & Output 01/20/19 01/21/19 01/22/19 06:59 06:59 06:59 Intake Total 3218 2025 1004 Output Total 2250 2925 Balance 968 -900 1004 Weight 79.8 kg 80.3 kg General appearance: PRESENT: no acute distress, cooperative Eye exam: PRESENT: EOMI Neck exam: ABSENT: JVD Respiratory exam: PRESENT: clear to auscultation abraham GI/Abdominal exam: PRESENT: distended - But improved, normal bowel sounds, soft, tenderness - Mildly. ABSENT: guarding, rebound, rigid Rectal exam: PRESENT: deferred Extremities exam: ABSENT: joint swelling Neurological exam: PRESENT: alert, awake, oriented to person, oriented to place, oriented to situation Results Laboratory Results: 01/21/19 06:00 01/21/19 06:00 01/21/19 01/21/19 06:00 06:00 WBC 11.6 H RBC 3.22 L Hgb 8.4 L Hct 26.0 L MCV 81 MCH 26.2 L MCHC 32.3 RDW 16.8 H Plt Count 284 Seg Neutrophils % 83.7 H Sodium 137.9 Potassium 3.4 L Chloride 107 Carbon Dioxide 27 Anion Gap 5 BUN 3 L Creatinine 0.75 Est GFR ( Amer) > 60 Glucose 82 Calcium 7.4 L 01/10/19 01/10/19 19:47 19:47 Creatine Kinase 38 CK-MB (CK-2) 0.69 Troponin I < 0.012 Impressions: Chest X-Ray 01/10/19 00:00 IMPRESSION: No acute abnormality is identified. Guidance Fluoroscopy 01/11/19 00:00 IMPRESSION: SUCCESSFUL PLACEMENT OF A 5 FR DUAL LUMEN 33 CM PICC IN THE RIGHT BASILIC VEIN. Interventional Vascular Procedure 01/11/19 00:00 IMPRESSION: SUCCESSFUL PLACEMENT OF A 5 FR DUAL LUMEN 33 CM PICC IN THE RIGHT BASILIC VEIN. PICC Line Insertion 01/11/19 00:00 IMPRESSION: SUCCESSFUL PLACEMENT OF A 5 FR DUAL LUMEN 33 CM PICC IN THE RIGHT BASILIC VEIN. 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 NO APPARENT ACUTE FINDINGS. Abdomen/Pelvis CT 01/17/19 00:00 IMPRESSION: 1. Small right pleural effusion. 2. Stable left adrenal mass. 3. Atrophic left kidney. 4. Partial small bowel obstruction. There is also some fluid in the colon. 5. Small amount of ascites. KUB X-Ray 01/20/19 00:00 IMPRESSION: Mild dilatation of small bowel loops. Nasogastric tube in the stomach. No significant change. Assessment and Plan - Diagnosis (1) Partial small bowel obstruction Is this a current diagnosis for this admission?: Yes Plan: Maintaining NG tube decompression as per surgery Surgery following. Recs appreciated. N.p.o. IV fluids hydration Upper GI follow-through study via NG tube to be done today (2) Diarrhea Qualifiers: Diarrhea type: functional diarrhea Qualified Code(s): K59.1 - Functional diarrhea Is this a current diagnosis for this admission?: Yes Plan: Could be secondary to postinfectious (C diff) irritable bowel syndrome versus overflow from small bowel obstruction (3) Mechanical low back pain Is this a current diagnosis for this admission?: Yes Plan: 2/2 Degenerative joint disease of lumbar spine. Limiting Percocet use to as needed given sbo. Morphine has since been discontinued. (4) Chronic pain disorder Is this a current diagnosis for this admission?: Yes Plan: Discussed limiting Percocet doses given small bowel obstruction (5) Decubitus ulcer of sacral region Qualifiers: Pressure injury stage: unspecified pressure injury stage Qualified Code(s): L89.159 - Pressure ulcer of sacral region, unspecified stage Is this a current diagnosis for this admission?: Yes Plan: Completed antibiotics course. Wound currently does not look infected. Continue with wound dressing wound care (6) Leukocytosis Qualifiers: Leukocytosis type: bandemia Qualified Code(s): D72.825 - Bandemia Is this a current diagnosis for this admission?: Yes Plan: Uncertain of cause but it may be secondary to current partial small bowel obstruction No other evidence of SIRS and no new focal source of infection We will continue to monitor but it is improving - Time Time Spent with patient: 15-24 minutes
[2019-01-21] MEDS ORDERED: POTASSI CL 20 MEQ/50 ML RIDER 20 MEQ/50 ML RTUPB IV SCH (13:15)
--- NOTE | 2019-01-21 14:31 | RADIOLOGY REPORT (SQ) ---
EXAM DESCRIPTION: UPPER GI/SM BOWEL COMPLETED DATE/TIME: 01/21/2019 2:10 pm REASON FOR STUDY: Rule out mechanical obstruction abdominal pain COMPARISON: None. TECHNIQUE: Under fluoroscopic guidance, Gastrografin was instilled through the patient's indwelling NG tube. Fluoroscopic spot images and routine radiographic images acquired and stored on PACS. Following evaluation of the stomach, additional contrast was administered with serial delayed abdomin al radiographs until colonic identification. Fluoroscopic images recorded of the terminal ileum. FLUOROSCOPY TIME: 3.2 minutes of fluoroscopy was used. 28 images saved to PACS. LIMITATIONS: None. 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 Few scattered air filled loops of small bowel are identified. There is seen in the right colon. Endograft and vascular stents are se en along the midline of the abdomen. GASTRO-ESOPHAGEAL JUNCTION: No hiatal hernia or reflux. STOMACH: NG tube within the lumen of the stomach. Single contrast study shows prominent mucosal fold s along the greater curvature of stomach. The fundus of the stomach is narrowed although this is non specific especially due to single contrast study. Endoscopy is recommended if clinically indicated. GASTRIC OUTLET: No delay in emptying. Normal pylorus. DUODENAL BULB: There is dilatation of the duodenum bulb without evidence of stricture. No masses or ulcerations identified. DUODENUM: Mild dilatation of the duodenum without evidence of post obstruction. JEJUNUM: Mild dilatation of the jejunum without evidence of stricture or obstruction. There appears to be transition zone and at the distal jejunum with normal appearing loops of bowel distal. Point o f transition is in the left lower quadrant. ILEUM: Normal mucosal pattern. No dilatation, segmentation, strictures or masses. TERMINAL ILEUM AND ILEO-CECAL VALVE: Normal mucosal pattern without cobble-stoning or stricture. Nor mal compression. PROXIMAL COLON: Incompletely imaged. No abnormality. NON-GI TRACT STRUCTURES: No significant finding. OTHER: Transit time is normal contrast seen in the ascending colon on the 1 hour film. IMPRESSION: 1. POSSIBLE MUCOSAL THICKENING OF THE BODY OF THE STOMACH EXTENDING INTO THE FUNDUS, TH IS MAY BE DUE TO POOR DISTENTION FROM THE SINGLE CONTRAST STUDY. ENDOSCOPY IS RECOMMENDED IF CLINICA LLY INDICATED. 2. POSSIBLE TRANSITION ZONE IN THE DISTAL JEJUNUM OR PROXIMAL ILEUM LOCATED IN THE LEFT LOWER QUADRA NT. THERE IS SLIGHTLY DILATED LOOPS OF SMALL BOWEL PROXIMALLY WITH NORMAL APPEARING SMALL BOWEL DIST AL TO THIS REGION. NO SMALL BOWEL OBSTRUCTION IS SEEN. COMMENT: Quality ID [id number]: Final reports for procedures using fluoroscopy that document radiation exp osure indices, or exposure time and number of fluorographic images (if radiation exposure indices are not available) TECHNICAL DOCUMENTATION: JOB ID: [id number] [employer]- All Rights Reserved Reading location - IP/workstation name: [email or web address]
[2019-01-22] MEDS: KETOROLAC TROMETHAMINE INJ/PF 30 MG/1 ML SDV IV SCH ×4 (02:38→21:50)
[2019-01-22] MEDS: OXYCODONE-ACETAMINOPHEN 5-325 MG TABLET NG PRN ×2 (02:39→12:09)
[2019-01-22] MEDS: DEXTROSE 5%-1/2 NORMAL SALINE 1,000 ML IV PRN ×2 (02:48→22:08)
[2019-01-22] MEDS: GABAPENTIN 300 MG CAPSULE NG SCH ×3 (05:43→22:05)
[2019-01-22] MEDS: HEPARIN SOD (PORCINE) 5,000 UNIT/ML 1 ML VIAL SUBCUT SCH ×3 (05:43→22:06)
[2019-01-22] MEDS: NYSTATIN TOPICAL POWDER 15 GM TP SCH ×2 (05:45→22:13)
[2019-01-22 06:13] LABS: ABSOLUTE LYMPHOCYTES (AUTO) 1.6 10^3/uL (0.5-4.7); ABSOLUTE MONOCYTES (AUTO) 0.3 10^3/uL (0.1-1.4); BASOPHILS % (AUTO) 0.3 % (0-2); EOSINOPHILS % (AUTO) 0.8 % (0-6); HEMATOCRIT 24.1 % (36.0-47.0); LYMPHOCYTES % (AUTO) 26.5 % (13-45); MEAN CORPUSCULAR HEMOGLOBIN 26.1 pg (27.0-33.4); MEAN CORPUSCULAR HGB CONC 32.1 g/dL (32.0-36.0); MEAN CORPUSCULAR VOLUME 81 fl (80-97); MONOCYTES % (AUTO) 4.8 % (3-13); PLATELET COUNT 260 10^3/uL (150-450); RED BLOOD COUNT 2.97 10^6/uL (3.72-5.28); RED CELL DISTRIBUTION WIDTH 17.3 % (11.5-14.0); SEGMENTED NEUTROPHILS % (AUTO) 67.6 % (42-78); TOTAL CELLS COUNTED % (AUTO) 100 %
[2019-01-22 06:19] LABS: HEMOGLOBIN 7.7 g/dL (12.0-15.5)
[2019-01-22 06:41] LABS: BLOOD UREA NITROGEN 3 mg/dL (7-20); CALCIUM 7.3 mg/dL (8.4-10.2); CARBON DIOXIDE 25 mmol/L (22-30); CHLORIDE 109 mmol/L (98-107); GLUCOSE 77 mg/dL (75-110); PHOSPHORUS 2.8 mg/dL (2.5-4.5); POTASSIUM 3.4 mmol/L (3.6-5.0)
[2019-01-22 06:52] LABS: ANION GAP 4 (5-19)
[2019-01-22] MEDS: PANTOPRAZOLE SODIUM 40 MG VIAL IV SCH (10:16)
[2019-01-22] MEDS: FLUTICASONE/VILANTEROL 100-25 MCG/DOSE IH SCH (10:22)
[2019-01-22] MEDS: NORMAL SALINE 10 ML SDV (SCHEDULED) IV SCH ×2 (10:28→22:17)
--- NOTE | 2019-01-22 11:32 | RADIOLOGY REPORT (SQ) ---
EXAM DESCRIPTION: ABDOMEN 2 VIEWS COMPLETED DATE/TIME: 01/22/2019 10:49 am REASON FOR STUDY: Check NG tube position COMPARISON: 01/20/2019 NUMBER OF VIEWS: Two views. TECHNIQUE: Supine and erect/decubitus radiographic images of the abdomen acquired. LIMITATIONS: None. FINDINGS: FREE AIR: None. No abnormal gas collections. LUNG BASES: Clear. BOWEL GAS PATTERN: Nonobstructive pattern. No dilated loops or air fluid levels. CALCIFICATIONS: No suspicious calcifications. SOFT TISSUES: No gross mass or suggestion of organomegaly. HARDWARE: Aortoiliac endograft. An NG tube extends to the stomach. Its tip is along the greater cur vature in the upper stomach. BONES: No acute fracture. No worrisome bone lesions. OTHER: No other significant finding. IMPRESSION: NG tube as described. TECHNICAL DOCUMENTATION: JOB ID: [id number] [employer]- All Rights Reserved Reading location - IP/workstation name: [email or web address]
--- NOTE | 2019-01-22 11:56 | PDOC PROGRESS REPORT ---
Subjective Progress Note for:: 01/22/19 Subjective:: Feels well. States that her abdomen feels well. Has been having bowel movements. No nausea or vomiting. Has been taking a lot of ice chips. Reason For Visit: SEVERE SEPSIS WITH SEPTIC SHOCK Physical Exam Vital Signs: Temp Pulse Resp BP Pulse Ox 97.3 F 84 16 118/59 L 99 01/22/19 10:53 01/22/19 10:53 01/22/19 10:53 01/22/19 10:53 01/22/19 10:53 Intake & Output 01/21/19 01/22/19 01/23/19 06:59 06:59 06:59 Intake Total 2024 2031 Output Total 2924 3435 Balance -900 -1403 Weight 80.3 kg 82.5 kg General appearance: PRESENT: no acute distress, cooperative Respiratory exam: PRESENT: clear to auscultation abraham Cardiovascular exam: PRESENT: RRR GI/Abdominal exam: PRESENT: other - Soft, nondistended, nontender to palpation. Active bowel sounds. NG tube output is slightly bile tinged. Output quantity likely the ice chips she has been taking copiously overnight. Results Laboratory Results: 01/22/19 05:53 01/22/19 05:53 01/22/19 01/22/19 05:53 05:53 WBC 6.0 RBC 2.97 L Hgb 7.7 L Hct 24.1 L MCV 81 MCH 26.1 L MCHC 32.1 RDW 17.3 H Plt Count 260 Seg Neutrophils % 67.6 Sodium 138.3 Potassium 3.4 L Chloride 109 H Carbon Dioxide 25 Anion Gap 4 L BUN 3 L Creatinine 0.72 Est GFR ( Amer) > 60 Glucose 77 Calcium 7.3 L Phosphorus 2.8 Magnesium 1.6 01/10/19 01/10/19 19:47 19:47 Creatine Kinase 38 CK-MB (CK-2) 0.69 Troponin I < 0.012 Impressions: Chest X-Ray 01/10/19 00:00 IMPRESSION: No acute abnormality is identified. Guidance Fluoroscopy 01/11/19 00:00 IMPRESSION: SUCCESSFUL PLACEMENT OF A 5 FR DUAL LUMEN 33 CM PICC IN THE RIGHT BASILIC VEIN. Interventional Vascular Procedure 01/11/19 00:00 IMPRESSION: SUCCESSFUL PLACEMENT OF A 5 FR DUAL LUMEN 33 CM PICC IN THE RIGHT BASILIC VEIN. PICC Line Insertion 01/11/19 00:00 IMPRESSION: SUCCESSFUL PLACEMENT OF A 5 FR DUAL LUMEN 33 CM PICC IN THE RIGHT BASILIC VEIN. 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 NO APPARENT ACUTE FINDINGS. Abdomen/Pelvis CT 01/17/19 00:00 IMPRESSION: 1. Small right pleural effusion. 2. Stable left adrenal mass. 3. Atrophic left kidney. 4. Partial small bowel obstruction. There is also some fluid in the colon. 5. Small amount of ascites. KUB X-Ray 01/20/19 00:00 IMPRESSION: Mild dilatation of small bowel loops. Nasogastric tube in the stomach. No significant change. Upper GI and Small Bowel X-Ray 01/21/19 00:00 IMPRESSION: 1. POSSIBLE MUCOSAL THICKENING OF THE BODY OF THE STOMACH EXTENDING INTO THE FUNDUS, THIS MAY BE DUE TO POOR DISTENTION FROM THE SINGLE CONTRAST STUDY. ENDOSCOPY IS RECOMMENDED IF CLINICALLY INDICATED. 2. POSSIBLE TRANSITION ZONE IN THE DISTAL JEJUNUM OR PROXIMAL ILEUM LOCATED IN THE LEFT LOWER QUADRANT. THERE IS SLIGHTLY DILATED LOOPS OF SMALL BOWEL PROXIMALLY WITH NORMAL APPEARING SMALL BOWEL DISTAL TO THIS REGION. NO SMALL BOWEL OBSTRUCTION IS SEEN. Abdomen X-Ray 01/22/19 00:00 IMPRESSION: NG tube as described. Assessment & Plan - Diagnosis (1) Partial small bowel obstruction Is this a current diagnosis for this admission?: Yes Plan: No evidence of bowel obstruction by exam and by x-ray studies today. Slight bile color to NG output likely due to bile reflux and not due to obstruction. We will DC her NG tube. Start clear liquids. If tolerated today recommend adva ncement tomorrow. - Time Time Spent with patient: Less than 15 minutes Level of Care: MEDICAL
[2019-01-22] MEDS ORDERED: POTASSI CL 20 MEQ/50 ML RIDER 20 MEQ/50 ML RTUPB IV ONE (12:30)
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
[2019-01-22] MEDS: OXYCODONE-ACETAMINOPHEN 5-325 MG TABLET PO PRN (18:24)
[2019-01-22] MEDS ORDERED: FLUCONAZOLE 100 MG TABLET PO ONE (21:59)
[2019-01-22] MEDS: TIZANIDINE HCL 4 MG TABLET NG SCH (22:04)
[2019-01-22] MEDS: ATORVASTATIN CALCIUM 40 MG TABLET NG SCH (22:06)
[2019-01-22] MEDS: PROMETHAZINE HCL INJ 25 MG/1 ML VIAL IV PRN (22:07)
[2019-01-23] MEDS: OXYCODONE-ACETAMINOPHEN 5-325 MG TABLET PO PRN ×3 (02:26→18:13)
[2019-01-23] MEDS: GABAPENTIN 300 MG CAPSULE NG SCH ×3 (06:16→21:04)
[2019-01-23] MEDS: TIZANIDINE HCL 4 MG TABLET NG SCH ×3 (06:16→21:04)
[2019-01-23] MEDS: HEPARIN SOD (PORCINE) 5,000 UNIT/ML 1 ML VIAL SUBCUT SCH ×3 (06:16→21:11)
[2019-01-23] MEDS: KETOROLAC TROMETHAMINE INJ/PF 30 MG/1 ML SDV IV SCH ×4 (06:17→21:11)
[2019-01-23] MEDS: NYSTATIN TOPICAL POWDER 15 GM TP SCH ×2 (06:18→17:18)
[2019-01-23] MEDS: NORMAL SALINE 10 ML SDV (AFTER EACH USE) IV PRN (06:19)
[2019-01-23 07:25] LABS: HEMATOCRIT 22.9 % (36.0-47.0); MEAN CORPUSCULAR HEMOGLOBIN 27.2 pg (27.0-33.4); MEAN CORPUSCULAR HGB CONC 33.5 g/dL (32.0-36.0); MEAN CORPUSCULAR VOLUME 81 fl (80-97); PLATELET COUNT 270 10^3/uL (150-450); RED BLOOD COUNT 2.82 10^6/uL (3.72-5.28); WHITE BLOOD COUNT 7.3 10^3/uL (4.0-10.5)
[2019-01-23 07:28] LABS: HEMOGLOBIN 7.7 g/dL (12.0-15.5)
[2019-01-23] MEDS ORDERED: NORMAL SALINE 250 ML IV PRN ×2 (07:35)
[2019-01-23] MEDS ORDERED: FUROSEMIDE INJ/PF 20 MG/2 ML SDV IV PRN (07:35)
[2019-01-23] MEDS ORDERED: FLUCONAZOLE 100 MG TABLET PO ONE (08:00)
[2019-01-23 08:03] LABS: ALBUMIN 1.6 g/dL (3.5-5.0); ALKALINE PHOSPHATASE 60 U/L (38-126); ANION GAP 5 (5-19); ASPARTATE AMINO TRANSFERASE 9 U/L (14-36); BILIRUBIN,DIRECT 0.1 mg/dL (0.0-0.4); BILIRUBIN,TOTAL 0.1 mg/dL (0.2-1.3); BLOOD UREA NITROGEN 3 mg/dL (7-20); CARBON DIOXIDE 21 mmol/L (22-30); CHLORIDE 114 mmol/L (98-107); POTASSIUM 3.5 mmol/L (3.6-5.0); TOTAL PROTEIN 3.6 g/dL (6.3-8.2)
[2019-01-23 08:13] LABS: CALCIUM 6.5 mg/dL (8.4-10.2); GLUCOSE 68 mg/dL (75-110)
[2019-01-23] MEDS: BUSPIRONE HCL 10 MG TABLET PO SCH ×3 (08:39→21:03)
[2019-01-23] MEDS ORDERED: NORMAL SALINE 1000 ML 1,000 ML IV PRN (08:44)
[2019-01-23 08:56] LABS: ABSOLUTE RETICS # 0.037 10^6/uL (0.028-0.122); RETICULOCYTE COUNT (AUTO) 1.29 % (0.66-2.85)
[2019-01-23] MEDS ORDERED: NORMAL SALINE 1000 ML 1,000 ML IV ONE (09:00)
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
[2019-01-23 09:09] LABS: IRON(TIBC) 10.9 ug/dL (37-170)
[2019-01-23] MEDS: PANTOPRAZOLE SODIUM 40 MG VIAL IV SCH (09:15)
[2019-01-23] MEDS: FLUTICASONE/VILANTEROL 100-25 MCG/DOSE IH SCH ×2 (09:15→09:30)
[2019-01-23] MEDS: ALBUMIN HUMAN 12.5 GM/50 ML RTUINJ IV SCH ×2 (09:16→10:39)
[2019-01-23] MEDS: NORMAL SALINE 10 ML SDV (SCHEDULED) IV SCH ×2 (09:17→21:14)
[2019-01-23] MEDS ORDERED: CALCIUM GLUCONATE 1000 MG/10 ML INJ IV ONE (09:30)
[2019-01-23 10:15] LABS: FOLATE 2.94 ng/mL (>2.76)
--- NOTE | 2019-01-23 11:12 | PDOC PROGRESS REPORT ---
Subjective Progress Note for:: 01/23/19 Subjective:: This is a 58-year-old female with questionable small bowel obstruction on CT scan. The patient has been tolerating a liquid diet. She is having bowel movements and passing flatus. She is feeling well today. She denies chest pain, nausea, vomiting, shortness of breath, dizziness, headache. She is hungry and is requesting food. Reason For Visit: SEVERE SEPSIS WITH SEPTIC SHOCK Physical Exam Vital Signs: Temp Pulse Resp BP Pulse Ox 98.0 F 80 18 104/57 L 96 01/23/19 00:00 01/23/19 00:00 01/23/19 00:00 01/23/19 00:00 01/23/19 00:00 Intake & Output 01/22/19 01/23/19 01/24/19 06:59 06:59 06:59 Intake Total 2032 1598 50 Output Total 3435 2250 Balance -1403 -652 50 Weight 82.5 kg 82.6 kg General appearance: PRESENT: no acute distress, cooperative Head exam: PRESENT: atraumatic, normocephalic Eye exam: PRESENT: EOMI, PERRLA Neck exam: ABSENT: tenderness, thyromegaly, tracheal deviation, tracheostomy Pulses: PRESENT: normal radial pulses Vascular exam: PRESENT: normal capillary refill GI/Abdominal exam: PRESENT: distended - Mild, soft. ABSENT: rebound, rigid, tenderness Rectal exam: PRESENT: deferred Neurological exam: PRESENT: alert, awake, oriented to person, oriented to place, oriented to time, oriented to situation, CN II-XII grossly intact Psychiatric exam: ABSENT: agitated, anxious, depressed Skin exam: ABSENT: cyanosis, erythema, jaundice Results Laboratory Results: 01/23/19 06:15 01/23/19 06:15 01/20/19 01/23/19 01/23/19 09:35 06:15 06:15 WBC 7.3 RBC 2.82 L Hgb 7.7 L Hct 22.9 L MCV 81 MCH 27.2 MCHC 33.5 RDW 17.0 H Plt Count 270 Retic Count (auto) Sodium 139.6 Potassium 3.5 L Chloride 114 H Carbon Dioxide 21 L Anion Gap 5 BUN 3 L Creatinine 0.68 Est GFR ( Amer) > 60 Glucose 68 L Calcium 6.5 L* Magnesium 1.4 L Iron TIBC % Saturation Ferritin Total Bilirubin 0.1 L AST 9 L Alkaline Phosphatase 60 Total Protein 3.6 L Albumin 1.6 L Vitamin B12 Folate Blood Type O NEGATIVE Antibody Screen POSITIVE 01/23/19 01/23/19 01/23/19 06:15 06:15 08:12 WBC RBC Hgb Hct MCV MCH MCHC RDW Plt Count Retic Count (auto) 1.29 Sodium Potassium Chloride Carbon Dioxide Anion Gap BUN Creatinine Est GFR ( Amer) Glucose Calcium Magnesium Iron 10.9 L TIBC 140 L % Saturation 8 Ferritin 96.60 Total Bilirubin AST Alkaline Phosphatase Total Protein Albumin Vitamin B12 > 1000.0 H Folate 2.94 Blood Type O NEGATIVE Antibody Screen POSITIVE 01/10/19 01/10/19 19:47 19:47 Creatine Kinase 38 CK-MB (CK-2) 0.69 Troponin I < 0.012 Impressions: Chest X-Ray 01/10/19 00:00 IMPRESSION: No acute abnormality is identified. Guidance Fluoroscopy 01/11/19 00:00 IMPRESSION: SUCCESSFUL PLACEMENT OF A 5 FR DUAL LUMEN 33 CM PICC IN THE RIGHT B ASILIC VEIN. Interventional Vascular Procedure 01/11/19 00:00 IMPRESSION: SUCCESSFUL PLACEMENT OF A 5 FR DUAL LUMEN 33 CM PICC IN THE RIGHT BASILIC VEIN. PICC Line Insertion 01/11/19 00:00 IMPRESSION: SUCCESSFUL PLACEMENT OF A 5 FR DUAL LUMEN 33 CM PICC IN THE RIGHT BASILIC VEIN. 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 NO APPARENT ACUTE FINDINGS. Abdomen/Pelvis CT 01/17/19 00:00 IMPRESSION: 1. Small right pleural effusion. 2. Stable left adrenal mass. 3. Atrophic left kidney. 4. Partial small bowel obstruction. There is also some fluid in the colon. 5. Small amount of ascites. KUB X-Ray 01/20/19 00:00 IMPRESSION: Mild dilatation of small bowel loops. Nasogastric tube in the stomach. No significant change. Upper GI and Small Bowel X-Ray 01/21/19 00:00 IMPRESSION: 1. POSSIBLE MUCOSAL THICKENING OF THE BODY OF THE STOMACH EXTENDING INTO THE FUNDUS, THIS MAY BE DUE TO POOR DISTENTION FROM THE SINGLE CONTRAST STUDY. ENDOSCOPY IS RECOMMENDED IF CLINICALLY INDICATED. 2. POSSIBLE TRANSITION ZONE IN THE DISTAL JEJUNUM OR PROXIMAL ILEUM LOCATED IN THE LEFT LOWER QUADRANT. THERE IS SLIGHTLY DILATED LOOPS OF SMALL BOWEL PROXIMALLY WITH NORMAL APPEARING SMALL BOWEL DISTAL TO THIS REGION. NO SMALL BOWEL OBSTRUCTION IS SEEN. Abdomen X-Ray 01/22/19 00:00 IMPRESSION: NG tube as described. Assessment & Plan - Diagnosis (1) Partial small bowel obstruction Is this a current diagnosis for this admission?: Yes (2) Abdominal pain Qualifiers: Abdominal location: upper abdomen, unspecified Qualified Code(s): R10.10 - Upper abdominal pain, unspecified Is this a current diagnosis for this admission?: Yes - Time Time Spent with patient: Less than 15 minutes - Plan Summary Plan Summary: This is a 58-year-old female with a resolving partial small bowel obstruction. The patient tolerated liquids yesterday. She is having bowel movements and passing flatus. I will advance her diet to regular today. She should continue with a bowel regimen to ensure that her bowel movements continue. Surgery will sign off at this time. Please renotify with any questions or concerns.
[2019-01-23 11:59] LABS: APPEARANCE,URINE SLIGHTLY-CLOUDY; BILIRUBIN,URINE NEGATIVE (NEGATIVE); COLOR,URINE YELLOW; GLUCOSE, URINE NEGATIVE (NEGATIVE); KETONES,URINE NEGATIVE (NEGATIVE); PROTEIN,URINE NEGATIVE (NEGATIVE); URINE SPECIFIC GRAVITY 1.006; UROBILINOGEN,URINE NEGATIVE mg/dL (<2.0)
[2019-01-23] MEDS: ONDANSETRON HCL INJ/PF 4 MG/2 ML SDV IV PRN ×2 (12:00→19:47)
[2019-01-23] MEDS ORDERED: BISACODYL 5 MG TABEC PO ONE (16:00)
[2019-01-23] MEDS ORDERED: KETOROLAC TROMETHAMINE INJ/PF 30 MG/1 ML SDV IV ONE (16:00)
--- NOTE | 2019-01-23 16:17 | RADIOLOGY REPORT (SQ) ---
EXAM DESCRIPTION: KUB/ABDOMEN (SINGLE VIEW) COMPLETED DATE/TIME: 01/23/2019 3:53 pm REASON FOR STUDY: Pain COMPARISON: 01/22/2019 NUMBER OF VIEWS: One view. TECHNIQUE: Supine radiographic image of the abdomen acquired. LIMITATIONS: None. FINDINGS: BOWEL GAS PATTERN: Multiple loops of dilated small bowel measuring up to 5.2 cm within the central abdomen, increased from prior. There is gaseous distention of the stomach. Additional gas noted throughout colonic loops. CALCIFICATIONS: Scattered pelvic phleboliths. No definitive radiopaque stones. SOFT TISSUES: No gross mass or suggestion of organomegaly. HARDWARE: Evidence of aortoiliac stent graft repair with bilateral renal snorkels. Prior cholecystec christine. BONES: No acute fracture. No worrisome bone lesions. OTHER: No other significant finding. IMPRESSION: Worsening dilated small bowel loops within the central abdomen suggestive of small bowel obstructive process. TECHNICAL DOCUMENTATION: JOB ID: [id number] [employer]- All Rights Reserved Reading location - IP/workstation name: [email or web address]
[2019-01-23] MEDS: POTASSI CL 20 MEQ/50 ML RIDER 20 MEQ/50 ML RTUPB IV SCH ×2 (17:24→18:56)
[2019-01-23] MEDS: ATORVASTATIN CALCIUM 40 MG TABLET NG SCH (21:04)
[2019-01-23] MEDS ORDERED: BENZOCAINE 20% AEROSOL SPRAY 60 GM ONE (21:50)
[2019-01-24] MEDS ORDERED: RINGERS SOLUTION,LACTATED 1,000 ML IV PRN (00:22)
[2019-01-24] MEDS: NORMAL SALINE 10 ML SDV (AFTER EACH USE) IV PRN ×2 (00:27→05:41)
[2019-01-24] MEDS: PROMETHAZINE HCL INJ 25 MG/1 ML VIAL IV PRN (00:34)
[2019-01-24 02:18] LABS: ANION GAP 8 (5-19); BLOOD UREA NITROGEN 5 mg/dL (7-20); CARBON DIOXIDE 22 mmol/L (22-30); CHLORIDE 110 mmol/L (98-107); POTASSIUM 4.3 mmol/L (3.6-5.0)
[2019-01-24 02:21] LABS: HEMOGLOBIN 12.2 g/dL (12.0-15.5); RED BLOOD COUNT 4.19 10^6/uL (3.72-5.28); WHITE BLOOD COUNT 7.8 10^3/uL (4.0-10.5)
[2019-01-24 02:22] LABS: MEAN CORPUSCULAR HGB CONC 33.8 g/dL (32.0-36.0); MEAN CORPUSCULAR VOLUME 86 fl (80-97); PLATELET COUNT 310 10^3/uL (150-450); RED CELL DISTRIBUTION WIDTH 17.8 % (11.5-14.0)
[2019-01-24 02:26] LABS: GLUCOSE 69 mg/dL (75-110)
[2019-01-24] MEDS: KETOROLAC TROMETHAMINE INJ/PF 30 MG/1 ML SDV IV SCH ×3 (02:59→14:11)
[2019-01-24] MEDS: DEXTROSE 50%-WATER 25 GM/50 ML DISP.SYRIN IV PRN ×2 (03:05→07:22)
[2019-01-24] MEDS: OXYCODONE-ACETAMINOPHEN 5-325 MG TABLET PO PRN ×3 (03:36→18:03)
[2019-01-24] MEDS: HEPARIN SOD (PORCINE) 5,000 UNIT/ML 1 ML VIAL SUBCUT SCH ×3 (05:39→21:01)
[2019-01-24] MEDS: TIZANIDINE HCL 4 MG TABLET NG SCH ×3 (05:40→21:00)
[2019-01-24] MEDS: GABAPENTIN 300 MG CAPSULE NG SCH ×3 (05:40→21:00)
[2019-01-24 06:15] LABS: ABSOLUTE EOSINOPHILS # (AUTO) 0.1 10^3/uL (0.0-0.6); ABSOLUTE LYMPHOCYTES (AUTO) 1.5 10^3/uL (0.5-4.7); ABSOLUTE MONOCYTES (AUTO) 0.4 10^3/uL (0.1-1.4); BASOPHILS % (AUTO) 0.6 % (0-2); HEMATOCRIT 31.2 % (36.0-47.0); HEMOGLOBIN 10.5 g/dL (12.0-15.5); LYMPHOCYTES % (AUTO) 24.9 % (13-45); MEAN CORPUSCULAR HEMOGLOBIN 28.9 pg (27.0-33.4); MEAN CORPUSCULAR HGB CONC 33.7 g/dL (32.0-36.0); MEAN CORPUSCULAR VOLUME 86 fl (80-97); MONOCYTES % (AUTO) 6.8 % (3-13); PLATELET COUNT 264 10^3/uL (150-450); RED BLOOD COUNT 3.63 10^6/uL (3.72-5.28); RED CELL DISTRIBUTION WIDTH 17.9 % (11.5-14.0); SEGMENTED NEUTROPHILS % (AUTO) 66.7 % (42-78); TOTAL CELLS COUNTED % (AUTO) 100 %
[2019-01-24] MEDS: NYSTATIN TOPICAL POWDER 15 GM TP SCH ×2 (06:20→18:03)
[2019-01-24 07:00] LABS: ALBUMIN 2.1 g/dL (3.5-5.0); ALKALINE PHOSPHATASE 84 U/L (38-126); ANION GAP 8 (5-19); ASPARTATE AMINO TRANSFERASE 10 U/L (14-36); BILIRUBIN,DIRECT 0.2 mg/dL (0.0-0.4); BILIRUBIN,TOTAL 0.6 mg/dL (0.2-1.3); BLOOD UREA NITROGEN 5 mg/dL (7-20); CALCIUM 7.8 mg/dL (8.4-10.2); CARBON DIOXIDE 22 mmol/L (22-30); CHLORIDE 110 mmol/L (98-107); POTASSIUM 4.1 mmol/L (3.6-5.0); TOTAL PROTEIN 4.6 g/dL (6.3-8.2)
[2019-01-24 07:10] LABS: GLUCOSE 62 mg/dL (75-110)
--- NOTE | 2019-01-24 08:49 | PDOC PROGRESS REPORT ---
Subjective Progress Note for:: 01/24/19 Subjective:: No abdominal pain. Still having bowel movements. But had profound nausea and vomiting last night. Reason For Visit: SEVERE SEPSIS WITH SEPTIC SHOCK Physical Exam Vital Signs: Temp Pulse Resp BP Pulse Ox 97.8 F 63 16 119/57 L 96 01/24/19 07:31 01/24/19 07:31 01/24/19 04:00 01/24/19 07:31 01/24/19 07:31 Intake & Output 01/23/19 01/24/19 01/25/19 06:59 06:59 06:59 Intake Total 1598 3971 9 Output Total 2250 3780 Balance -652 191 9 Weight 82.6 kg 82.5 kg General appearance: PRESENT: no acute distress, cooperative Respiratory exam: PRESENT: clear to auscultation abraham Cardiovascular exam: PRESENT: RRR GI/Abdominal exam: PRESENT: other - Soft, mildly distended, very minimal diffuse abdominal tenderness with no peritoneal signs. Normal active bowel sounds. Results Laboratory Results: 01/24/19 05:55 01/24/19 05:55 01/23/19 01/23/19 01/23/19 06:15 06:15 08:12 WBC RBC Hgb Hct MCV MCH MCHC RDW Plt Count Seg Neutrophils % Retic Count (auto) 1.29 Sodium Potassium Chloride Carbon Dioxide Anion Gap BUN Creatinine Est GFR ( Amer) Glucose Calcium Magnesium Iron 10.9 L TIBC 140 L % Saturation 8 Ferritin 96.60 Total Bilirubin AST Alkaline Phosphatase Total Protein Albumin Vitamin B12 > 1000.0 H Folate 2.94 Urine Color Urine Appearance Urine pH Ur Specific [place] Urine Protein Urine Glucose (UA) Urine Ketones Urine Blood Urine RBC (Auto) Blood Type O NEGATIVE Antibody Screen POSITIVE 01/23/19 01/24/19 01/24/19 10:36 00:25 00:25 WBC 7.8 RBC 4.19 Hgb 12.2 D Hct 36.0 MCV 86 D MCH 29.0 MCHC 33.8 RDW 17.8 H Plt Count 310 Seg Neutrophils % Retic Count (auto) Sodium 140.0 Potassium 4.3 Chloride 110 H Carbon Dioxide 22 Anion Gap 8 BUN 5 L Creatinine 0.85 Est GFR ( Amer) > 60 Glucose 69 L Calcium 8.0 L Magnesium 1.5 L Iron TIBC % Saturation Ferritin Total Bilirubin AST Alkaline Phosphatase Total Protein Albumin Vitamin B12 Folate Urine Color YELLOW Urine Appearance SLIGHTLY-CLOUDY Urine pH 6.0 Ur Specific [place] 1.006 Urine Protein NEGATIVE Urine Glucose (UA) NEGATIVE Urine Ketones NEGATIVE Urine Blood SMALL H Urine RBC (Auto) 12 Blood Type Antibody Screen 01/24/19 01/24/19 05:55 05:55 WBC 6.0 RBC 3.63 L Hgb 10.5 L Hct 31.2 L MCV 86 MCH 28.9 MCHC 33.7 RDW 17.9 H Plt Count 264 Seg Neutrophils % 66.7 Retic Count (auto) Sodium 139.6 Potassium 4.1 Chloride 110 H Carbon Dioxide 22 Anion Gap 8 BUN 5 L Creatinine 0.81 Est GFR ( Amer) > 60 Glucose 62 L Calcium 7.8 L Magnesium 1.4 L Iron TIBC % Saturation Ferritin Total Bilirubin 0.6 AST 10 L Alkaline Phosphatase 84 Total Protein 4.6 L Albumin 2.1 L Vitamin B12 Folate Urine Color Urine Appearance Urine pH Ur Specific [place] Urine Protein Urine Glucose (UA) Urine Ketones Urine Blood Urine RBC (Auto) Blood Type Antibody Screen 01/10/19 01/10/19 19:47 19:47 Creatine Kinase 38 CK-MB (CK-2) 0.69 Troponin I < 0.012 Impressions: Chest X-Ray 01/10/19 00:00 IMPRESSION: No acute abnormality is identified. Guidance Fluoroscopy 01/11/19 00:00 IMPRESSION: SUCCESSFUL PLACEMENT OF A 5 FR DUAL LUMEN 33 CM PICC IN THE RIGHT BASILIC VEIN. Interventional Vascular Procedure 01/11/19 00:00 IMPRESSION: SUCCESSFUL PLACEMENT OF A 5 FR DUAL LUMEN 33 CM PICC IN THE RIGHT BASILIC VEIN. PICC Line Insertion 01/11/19 00:00 IMPRESSION: SUCCESSFUL PLACEMENT OF A 5 FR DUAL LUMEN 33 CM PICC IN THE RIGHT BASILIC VEIN. 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 NO APPARENT ACUTE FINDINGS. Abdomen/Pelvis CT 01/17/19 00:00 IMPRESSION: 1. Small right pleural effusion. 2. Stable left adrenal mass. 3. Atrophic left kidney. 4. Partial small bowel obstruction. There is also some fluid in the colon. 5. Small amount of ascites. Upper GI and Small Bowel X-Ray 01/21/19 00:00 IMPRESSION: 1. POSSIBLE MUCOSAL THICKENING OF THE BODY OF THE STOMACH EXTENDING INTO THE FUNDUS, THIS MAY BE DUE TO POOR DISTENTION FROM THE SINGLE CONTRAST STUDY. ENDOSCOPY IS RECOMMENDED IF CLINICALLY INDICATED. 2. POSSIBLE TRANSITION ZONE IN THE DISTAL JEJUNUM OR PROXIMAL ILEUM LOCATED IN THE LEFT LOWER QUADRANT. THERE IS SLIGHTLY DILATED LOOPS OF SMALL BOWEL PROXIMALLY WITH NORMAL APPEARING SMALL BOWEL DISTAL TO THIS REGION. NO SMALL BOWEL OBSTRUCTION IS SEEN. Assessment & Plan - Diagnosis (1) Partial small bowel obstruction Is this a current diagnosis for this admission?: Yes Plan: Perplexing why she had nausea and vomiting yesterday. X-rays this morning appears better than last night. I have reviewed her films with radiology and with her recurrent nausea and vomiting last night, will repeat her abdominal pelvic CT scan with oral contrast. - Time Time Spent with patient: Less than 15 minutes Level of Care: MEDICAL
[2019-01-24] MEDS: DEXTROSE 5%-NORMAL SALINE 1,000 ML IV PRN ×2 (09:01→16:23)
--- NOTE | 2019-01-24 09:04 | RADIOLOGY REPORT (SQ) ---
EXAM DESCRIPTION: KUB/ABDOMEN (SINGLE VIEW) COMPLETED DATE/TIME: 01/23/2019 11:05 pm REASON FOR STUDY: Check Placement of NG Tube COMPARISON: Earlier same day. NUMBER OF VIEWS: One view. TECHNIQUE: Supine radiographic image of the abdomen acquired. LIMITATIONS: None. FINDINGS: Nasogastric tube tip overlies the stomach. There is less gastric distention. IMPRESSION: Nasogastric tube in the stomach. Reading location - IP/workstation name: [email or web address]
[2019-01-24 09:47] LABS: C DIFFICILE GDH POSITIVE (NEGATIVE)
[2019-01-24] MEDS: FLUTICASONE/VILANTEROL 100-25 MCG/DOSE IH SCH (10:18)
[2019-01-24] MEDS: PANTOPRAZOLE SODIUM 40 MG VIAL IV SCH (10:18)
[2019-01-24] MEDS: NORMAL SALINE 10 ML SDV (SCHEDULED) IV SCH ×2 (10:18→21:02)
[2019-01-24] MEDS: BUSPIRONE HCL 10 MG TABLET PO SCH ×2 (10:20→21:00)
--- NOTE | 2019-01-24 10:31 | RADIOLOGY REPORT (SQ) ---
EXAM DESCRIPTION: ABDOMEN 2 VIEWS COMPLETED DATE/TIME: 01/24/2019 9:03 am REASON FOR STUDY: flat and upright. distention, nausea, and vomiting COMPARISON: Previous day. NUMBER OF VIEWS: Two views. TECHNIQUE: Supine and erect/decubitus radiographic images of the abdomen acquired. LIMITATIONS: None. FINDINGS: FREE AIR: None. No abnormal gas collections. LUNG BASES: Small left pleural effusion. BOWEL GAS PATTERN: Gas fluid levels within the less dilated loops of small bowel right of midline. S tomach is decompressed. CALCIFICATIONS: No suspicious calcifications. SOFT TISSUES: No gross mass or suggestion of organomegaly. HARDWARE: None in the abdomen. BONES: No acute fracture. No worrisome bone lesions. OTHER: Aortic endograft. IMPRESSION: Less distension compared to yesterday. TECHNICAL DOCUMENTATION: JOB ID: [id number] [employer]- All Rights Reserved Reading location - IP/workstation name: [email or web address]
--- NOTE | 2019-01-24 12:16 | RADIOLOGY REPORT (SQ) ---
EXAM DESCRIPTION: CT ABD/PELVIS ORAL ONLY COMPLETED DATE/TIME: 01/24/2019 11:52 am REASON FOR STUDY: r/o sbo. Please give contrast via NG tube. COMPARISON: 01/17/2019 TECHNIQUE: CT scan of the abdomen and pelvis performed without intravenous or oral contrast. Images reviewed with lung, soft tissue, and bone windows. Reconstructed coronal and sagittal MPR images revi ewed. All images stored on PACS. All CT scanners at this facility use dose modulation, iterative reconstruction, and/or weight based d osing when appropriate to reduce radiation dose to as low as reasonably achievable (ALARA). [facility]: Dose Right [facility]: CareDose [facility]: Dose Right [facility]: Teradose 4D [facility]: Smart [employer] RADIATION DOSE: CT Rad equipment meets quality standard of care and radiation dose reduction techniq ues were employed. CTDIvol: 7.0 mGy. DLP: 376 mGy-cm.mGy. LIMITATIONS: None. FINDINGS: LOWER CHEST: Small bilateral pleural effusions. NON-CONTRASTED LIVER, SPLEEN, ADRENALS: Evaluation limited by lack of IV contrast. Unchanged low-att enuation nodule or cyst of the left adrenal gland. PANCREAS: No masses. No peripancreatic inflammatory changes. GALLBLADDER: No identified stones by CT criteria. No inflammatory changes to suggest cholecystitis. RIGHT KIDNEY AND URETER: Very atrophic left kidney. No suspicious masses. Assessment limited by lack of IV contrast. No significant calcifications. No hydronephrosis or hydroureter. LEFT KIDNEY AND URETER: No suspicious masses. Assessment limited by lack of IV contrast. No signifi cant calcifications. No hydronephrosis or hydroureter. AORTA AND RETROPERITONEUM: Abdominal aortic aneurysm status post aortobiiliac stent endograft and abraham ateral renal artery snorkel stenting. BOWEL AND PERITONEAL CAVITY: There is a probable partial obstruction of the proximal small bowel over lying the aortic aneurysm sac (series 2, image 42) with generally decompressed small bowel and colon distal to this point. There is significant distal gas and fluid to the rectum, evidencing incomplete obstruction. Small volume four-quadrant ascites. APPENDIX: Not clearly visualized. PELVIS, BLADDER, AND ABDOMINAL WALL:No abnormal masses. Anasarca. No free fluid. Marinelli catheter in the urinary bladder. BONES: No significant findings. OTHER: No other significant finding. IMPRESSION: 1. There is a probable partial obstruction of the proximal small bowel overlying the aor tic aneurysm sac (series 2, image 42) with generally decompressed small bowel and colon distal to thi s point. There is significant distal gas and fluid to the rectum, evidencing incomplete obstruction. 2. Small volume four-quadrant ascites. Pleural effusions and anasarca. 3. Chronic incidental findings as above. COMMENT: Quality ID # [id number]: Final reports with documentation of one or more dose reduction techniques (e.g., Automated exposure control, adjustment of the mA and/or kV according to patient size, use of iterative reconstruction technique) TECHNICAL DOCUMENTATION: JOB ID: [id number] [employer]- All Rights Reserved Reading location - IP/workstation name: [email or web address]
[2019-01-24] MEDS ORDERED: CALCIUM GLUCONATE 1000 MG/10 ML INJ IV ONE (12:30)
[2019-01-24] MEDS: MAGNESIUM SULFATE/D5W 1 GM/100 ML RTUPB IV SCH ×2 (13:59→16:19)
--- NOTE | 2019-01-24 15:34 | PDOC PROGRESS REPORT ---
Subjective Progress Note for:: 01/24/19 Subjective:: Very hungry. Would like NG tube out and food. Still having bowel movements. Denies any abdominal pain. Reason For Visit: SEVERE SEPSIS WITH SEPTIC SHOCK Physical Exam Vital Signs: Temp Pulse Resp BP Pulse Ox 97.8 F 63 16 119/57 L 96 01/24/19 07:31 01/24/19 07:31 01/24/19 04:00 01/24/19 07:31 01/24/19 07:31 Intake & Output 01/23/19 01/24/19 01/25/19 06:59 06:59 06:59 Intake Total 1598 3971 1009 Output Total 2250 3780 Balance -375 083 6625 Weight 82.6 kg 82.5 kg General appearance: PRESENT: no acute distress, cooperative Respiratory exam: PRESENT: clear to auscultation abraham Cardiovascular exam: PRESENT: RRR GI/Abdominal exam: PRESENT: other - Soft, nondistended, minimal tenderness in the epigastric region. No peritoneal signs. Normal active bowel sounds. NG output is still bile tinged. Patient states that she is taking a lot of ice. Results Laboratory Results: 01/24/19 05:55 01/24/19 05:55 01/24/19 01/24/19 01/24/19 00:25 00:25 03:15 WBC 7.8 RBC 4.19 Hgb 12.2 D Hct 36.0 MCV 86 D MCH 29.0 MCHC 33.8 RDW 17.8 H Plt Count 310 Seg Neutrophils % Sodium 140.0 Potassium 4.3 Chloride 110 H Carbon Dioxide 22 Anion Gap 8 BUN 5 L Creatinine 0.85 Est GFR ( Amer) > 60 Glucose 69 L Calcium 8.0 L Magnesium 1.5 L Total Bilirubin AST Alkaline Phosphatase Total Protein Albumin Stl C.difficile Tox PCR NEGATIVE 01/24/19 01/24/19 05:55 05:55 WBC 6.0 RBC 3.63 L Hgb 10.5 L Hct 31.2 L MCV 86 MCH 28.9 MCHC 33.7 RDW 17.9 H Plt Count 264 Seg Neutrophils % 66.7 Sodium 139.6 Potassium 4.1 Chloride 110 H Carbon Dioxide 22 Anion Gap 8 BUN 5 L Creatinine 0.81 Est GFR ( Amer) > 60 Glucose 62 L Calcium 7.8 L Magnesium 1.4 L Total Bilirubin 0.6 AST 10 L Alkaline Phosphatase 84 Total Protein 4.6 L Albumin 2.1 L Stl C.difficile Tox PCR 01/10/19 01/10/19 19:47 19:47 Creatine Kinase 38 CK-MB (CK-2) 0.69 Troponin I < 0.012 Impressions: Chest X-Ray 01/10/19 00:00 IMPRESSION: No acute abnormality is identified. Guidance Fluoroscopy 01/11/19 00:00 IMPRESSION: SUCCESSFUL PLACEMENT OF A 5 FR DUAL LUMEN 33 CM PICC IN THE RIGHT BASILIC VEIN. Interventional Vascular Procedure 01/11/19 00:00 IMPRESSION: SUCCESSFUL PLACEMENT OF A 5 FR DUAL LUMEN 33 CM PICC IN THE RIGHT BASILIC VEIN. PICC Line Insertion 01/11/19 00:00 IMPRESSION: SUCCESSFUL PLACEMENT OF A 5 FR DUAL LUMEN 33 CM PICC IN THE RIGHT BASILIC VEIN. 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 NO APPARENT ACUTE FINDINGS. Upper GI and Small Bowel X-Ray 01/21/19 00:00 IMPRESSION: 1. POSSIBLE MUCOSAL THICKENING OF THE BODY OF THE STOMACH EXTENDING INTO THE FUNDUS, THIS MAY BE DUE TO POOR DISTENTION FROM THE SINGLE CONTRAST STUDY. ENDOSCOPY IS RECOMMENDED IF CLINICALLY INDICATED. 2. POSSIBLE TRANSITION ZONE IN THE DISTAL JEJUNUM OR PROXIMAL ILEUM LOCATED IN THE LEFT LOWER QUADRANT. THERE IS SLIGHTLY DILATED LOOPS OF SMALL BOWEL PROXIMALLY WITH NORMAL APPEARING SMALL BOWEL DISTAL TO THIS REGION. NO SMALL BOWEL OBSTRUCTION IS SEEN. KUB X-Ray 01/23/19 17:57 IMPRESSION: Nasogastric tube in the stomach. Abdomen X-Ray 01/24/19 00:00 IMPRESSION: Less distension compared to yesterday. Abdomen/Pelvis CT 01/24/19 00:00 IMPRESSION: 1. There is a probable partial obstruction of the proximal small bowel overlying the aortic aneurysm sac (series 2, image 42) with generally decompressed small bowel and colon distal to this point. There is significant distal gas and fluid to the rectum, evidencing incomplete obstruction. 2. Small volume four-quadrant ascites. Pleural effusions and anasarca. 3. Chronic incidental findings as above. Assessment & Plan - Diagnosis (1) Partial small bowel obstruction Is this a current diagnosis for this admission?: Yes Plan: CT scan demonstrates evidence of a low-grade partial small bowel obstruction with dilated loops of proximal small bowel with what appears to be a possible transition point with decompressed bowel distal to this point. however, contrast is clearly going past this region. Uncertain whether she has a true mechanical low-grade partial small bowel obstruction. Operative risk is not inconsequential in this patient with history of stroke and history of cardiac issues as well. I have had a long discussion with the patient and the patient's family concerning risk and benefits of surgery including the distinct poss ibility that no significant mechanical problem is found during surgery. They would prefer another trial of conservative management. I will have her stop her ice chips and monitor NG output overnight. Her abdominal films are much improved from last night and patient has been having bowel movements with minimal abdominal pain and is hungry. If NG output is not too high we will try NG clamp trials versus pulling out the NG and allowing the patient to eat. Certainly reasonable option in light of all these confounding factors. - Time Time Spent with patient: 15-24 minutes Level of Care: MEDICAL
[2019-01-24] MEDS ORDERED: MAGNESIUM SULFATE/D5W 1 GM/100 ML RTUPB IV ONE (16:15)
[2019-01-24] MEDS ORDERED: IRON SUCROSE COMPLEX 100 MG in NORMAL SALINE 100 ML IV ONE (20:17)
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
[2019-01-24] MEDS: ATORVASTATIN CALCIUM 40 MG TABLET NG SCH (21:00)
[2019-01-24] MEDS ORDERED: IRON SUCROSE COMPLEX INJ/PF 100 MG/5 ML SDV IV ONE (22:00)
[2019-01-25] MEDS: DEXTROSE 5%-NORMAL SALINE 1,000 ML IV PRN ×3 (01:20→18:30)
[2019-01-25 06:01] LABS: ABSOLUTE EOSINOPHILS # (AUTO) 0.1 10^3/uL (0.0-0.6); ABSOLUTE LYMPHOCYTES (AUTO) 1.7 10^3/uL (0.5-4.7); ABSOLUTE MONOCYTES (AUTO) 0.7 10^3/uL (0.1-1.4); BASOPHILS % (AUTO) 0.3 % (0-2); EOSINOPHILS % (AUTO) 0.7 % (0-6); HEMATOCRIT 32.2 % (36.0-47.0); HEMOGLOBIN 10.8 g/dL (12.0-15.5); LYMPHOCYTES % (AUTO) 23.1 % (13-45); MEAN CORPUSCULAR HGB CONC 33.5 g/dL (32.0-36.0); MEAN CORPUSCULAR VOLUME 86 fl (80-97); MONOCYTES % (AUTO) 8.9 % (3-13); PLATELET COUNT 309 10^3/uL (150-450); RED BLOOD COUNT 3.73 10^6/uL (3.72-5.28); RED CELL DISTRIBUTION WIDTH 18.1 % (11.5-14.0); TOTAL CELLS COUNTED % (AUTO) 100 %; WHITE BLOOD COUNT 7.5 10^3/uL (4.0-10.5)
[2019-01-25] MEDS: GABAPENTIN 300 MG CAPSULE NG SCH ×3 (06:30→22:12)
[2019-01-25] MEDS: TIZANIDINE HCL 4 MG TABLET NG SCH ×3 (06:31→22:12)
[2019-01-25] MEDS: OXYCODONE-ACETAMINOPHEN 5-325 MG TABLET PO PRN ×3 (06:31→20:12)
[2019-01-25] MEDS: HEPARIN SOD (PORCINE) 5,000 UNIT/ML 1 ML VIAL SUBCUT SCH ×3 (06:32→22:11)
[2019-01-25] MEDS: NYSTATIN TOPICAL POWDER 15 GM TP SCH ×2 (06:32→18:32)
[2019-01-25 06:48] LABS: ANION GAP 5 (5-19); BLOOD UREA NITROGEN 8 mg/dL (7-20); CALCIUM 7.5 mg/dL (8.4-10.2); CARBON DIOXIDE 20 mmol/L (22-30); CHLORIDE 113 mmol/L (98-107); GLUCOSE 73 mg/dL (75-110); POTASSIUM 3.7 mmol/L (3.6-5.0)
[2019-01-25 06:55] LABS: PREALBUMIN 6.6 mg/dL (17.6-36.0)
[2019-01-25] MEDS: NORMAL SALINE 10 ML SDV (AFTER EACH USE) IV PRN (06:59)
[2019-01-25] MEDS: BUSPIRONE HCL 10 MG TABLET PO SCH ×2 (09:11→22:12)
[2019-01-25] MEDS: FLUTICASONE/VILANTEROL 100-25 MCG/DOSE IH SCH (09:11)
[2019-01-25] MEDS: FLUCONAZOLE 200 MG/NS RTU 200 MG/100 ML RTUPB IV SCH (09:11)
[2019-01-25] MEDS: PANTOPRAZOLE SODIUM 40 MG VIAL IV SCH (09:11)
[2019-01-25] MEDS: NORMAL SALINE 10 ML SDV (SCHEDULED) IV SCH ×2 (09:12→22:13)
--- NOTE | 2019-01-25 10:08 | PDOC PROGRESS REPORT ---
Subjective Progress Note for:: 01/25/19 Subjective:: Had flatus this am. Hungry. Reason For Visit: SEVERE SEPSIS WITH SEPTIC SHOCK Physical Exam Vital Signs: Temp Pulse Resp BP Pulse Ox 97.4 F 55 L 18 108/51 L 96 01/25/19 00:00 01/25/19 00:00 01/25/19 00:00 01/25/19 00:00 01/25/19 00:00 Intake & Output 01/24/19 01/25/19 01/26/19 06:59 06:59 06:59 Intake Total 3971 3130 Output Total 3780 3025 Balance 191 105 Weight 82.5 kg 82.4 kg Exam: abdomen much less distended with mild epigastric tenderness NGT not draining much this am. Results Laboratory Results: 01/25/19 05:29 01/25/19 05:29 01/24/19 01/25/19 01/25/19 03:15 05:29 05:29 WBC 7.5 RBC 3.73 Hgb 10.8 L Hct 32.2 L MCV 86 MCH 29.0 MCHC 33.5 RDW 18.1 H Plt Count 309 Seg Neutrophils % 67.0 Sodium 137.7 Potassium 3.7 Chloride 113 H Carbon Dioxide 20 L Anion Gap 5 BUN 8 Creatinine 0.76 Est GFR ( Amer) > 60 Glucose 73 L Calcium 7.5 L Magnesium 1.9 Prealbumin 6.6 L Stl C.difficile Tox PCR NEGATIVE 01/10/19 01/10/19 19:47 19:47 Creatine Kinase 38 CK-MB (CK-2) 0.69 Troponin I < 0.012 Impressions: Chest X-Ray 01/10/19 00:00 IMPRESSION: No acute abnormality is identified. Guidance Fluoroscopy 01/11/19 00:00 IMPRESSION: SUCCESSFUL PLACEMENT OF A 5 FR DUAL LUMEN 33 CM PICC IN THE RIGHT BASILIC VEIN. Interventional Vascular Procedure 01/11/19 00:00 IMPRESSION: SUCCESSFUL PLACEMENT OF A 5 FR DUAL LUMEN 33 CM PICC IN THE RIGHT BASILIC VEIN. PICC Line Insertion 01/11/19 00:00 IMPRESSION: SUCCESSFUL PLACEMENT OF A 5 FR DUAL LUMEN 33 CM PICC IN THE RIGHT B ASILIC VEIN. 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 NO APPARENT ACUTE FINDINGS. Upper GI and Small Bowel X-Ray 01/21/19 00:00 IMPRESSION: 1. POSSIBLE MUCOSAL THICKENING OF THE BODY OF THE STOMACH EXTENDING INTO THE FUNDUS, THIS MAY BE DUE TO POOR DISTENTION FROM THE SINGLE CONTRAST STUDY. ENDOSCOPY IS RECOMMENDED IF CLINICALLY INDICATED. 2. POSSIBLE TRANSITION ZONE IN THE DISTAL JEJUNUM OR PROXIMAL ILEUM LOCATED IN THE LEFT LOWER QUADRANT. THERE IS SLIGHTLY DILATED LOOPS OF SMALL BOWEL PROXIMALLY WITH NORMAL APPEARING SMALL BOWEL DISTAL TO THIS REGION. NO SMALL BOWEL OBSTRUCTION IS SEEN. KUB X-Ray 01/23/19 17:57 IMPRESSION: Nasogastric tube in the stomach. Abdomen X-Ray 01/24/19 00:00 IMPRESSION: Less distension compared to yesterday. Abdomen/Pelvis CT 01/24/19 00:00 IMPRESSION: 1. There is a probable partial obstruction of the proximal small bowel overlying the aortic aneurysm sac (series 2, image 42) with generally decompressed small bowel and colon distal to this point. There is significant distal gas and fluid to the rectum, evidencing incomplete obstruction. 2. Small volume four-quadrant ascites. Pleural effusions and anasarca. 3. Chronic incidental findings as above. Assessment & Plan - Diagnosis (1) Partial small bowel obstruction Is this a current diagnosis for this admission?: Yes (2) Abdominal pain Qualifiers: Abdominal location: upper abdomen, unspecified Qualified Code(s): R10.10 - Upper abdominal pain, unspecified Is this a current diagnosis for this admission?: Yes (3) Diarrhea Qualifiers: Diarrhea type: functional diarrhea Qualified Code(s): K59.1 - Functional diarrhea Is this a current diagnosis for this admission?: Yes - Time Time Spent with patient: 15-24 minutes - Inpatient Certification Medical Necessity: Need Close Monitoring Due to Risk of Patient Decompensation, Need For IV Fluids - Plan Summary Plan Summary: Plans: Trial of clamping NG tube for about 4hours. If she tolerates it and minimal drainage after surgery looking to suction then the NG tube can be removed and start her on clears
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
[2019-01-25] MEDS: KETOROLAC TROMETHAMINE INJ/PF 30 MG/1 ML SDV IV PRN (18:41)
[2019-01-25] MEDS: ATORVASTATIN CALCIUM 40 MG TABLET NG SCH (22:11)
[2019-01-26] MEDS: DEXTROSE 5%-NORMAL SALINE 1,000 ML IV PRN ×3 (01:16→20:06)
[2019-01-26] MEDS: KETOROLAC TROMETHAMINE INJ/PF 30 MG/1 ML SDV IV PRN ×2 (03:27→20:06)
[2019-01-26] MEDS: HEPARIN SOD (PORCINE) 5,000 UNIT/ML 1 ML VIAL SUBCUT SCH ×3 (05:48→21:10)
[2019-01-26] MEDS: NYSTATIN TOPICAL POWDER 15 GM TP SCH ×2 (05:48→17:22)
[2019-01-26] MEDS: GABAPENTIN 300 MG CAPSULE NG SCH ×3 (05:49→21:10)
[2019-01-26] MEDS: TIZANIDINE HCL 4 MG TABLET NG SCH ×3 (05:49→21:19)
[2019-01-26] MEDS: OXYCODONE-ACETAMINOPHEN 5-325 MG TABLET PO PRN ×3 (05:54→18:46)
[2019-01-26] MEDS: BUSPIRONE HCL 10 MG TABLET PO SCH ×2 (11:23→21:10)
[2019-01-26] MEDS: FLUCONAZOLE 200 MG/NS RTU 200 MG/100 ML RTUPB IV SCH (11:23)
[2019-01-26] MEDS: FLUTICASONE/VILANTEROL 100-25 MCG/DOSE IH SCH (11:23)
[2019-01-26] MEDS: PANTOPRAZOLE SODIUM 40 MG VIAL IV SCH (11:24)
[2019-01-26] MEDS: NORMAL SALINE 10 ML SDV (SCHEDULED) IV SCH ×2 (11:24→21:11)
[2019-01-26] MEDS: ONDANSETRON HCL INJ/PF 4 MG/2 ML SDV IV PRN (13:09)
[2019-01-26] MEDS ORDERED: MORPHINE SULFATE 10 MG/ML INJ IV ONE (14:29)
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
--- NOTE | 2019-01-26 17:01 | PDOC PROGRESS REPORT ---
Subjective Progress Note for:: 01/26/19 Subjective:: This is a 58-year-old female with questionable small bowel obstruction on CT scan. The patient has been tolerating a liquid diet. She is having bowel movements and passing flatus. She is feeling well again today. She denies chest pain, nausea, vomiting, shortness of breath, dizziness, headache. She is hungry and is requesting food. Reason For Visit: SEVERE SEPSIS WITH SEPTIC SHOCK Physical Exam Vital Signs: Temp Pulse Resp BP Pulse Ox 98.1 F 59 L 17 108/70 99 01/26/19 12:23 01/26/19 12:23 01/26/19 12:23 01/26/19 12:23 01/26/19 12:23 Intake & Output 01/25/19 01/26/19 01/27/19 06:59 06:59 05:59 Intake Total 3130 2921 1100 Output Total 3025 2425 Balance 339 943 2025 Weight 82.4 kg 81.9 kg General appearance: PRESENT: no acute distress, cooperative Head exam: PRESENT: atraumatic, normocephalic Eye exam: PRESENT: EOMI, PERRLA Mouth exam: PRESENT: moist, neck supple Neck exam: ABSENT: tenderness, thyromegaly, tracheal deviation Respiratory exam: PRESENT: unlabored. ABSENT: tachypnea, wheezes Pulses: PRESENT: normal radial pulses Vascular exam: PRESENT: normal capillary refill GI/Abdominal exam: PRESENT: distended - mild, soft. ABSENT: tenderness Rectal exam: PRESENT: deferred Neurological exam: PRESENT: alert, awake, oriented to person, oriented to place, oriented to time, oriented to situation, CN II-XII grossly intact Psychiatric exam: PRESENT: anxious Focused psych exam: ABSENT: delusional Skin exam: ABSENT: cyanosis, erythema, jaundice Results Laboratory Results: 01/25/19 05:29 01/25/19 05:29 01/10/19 01/10/19 19:47 19:47 Creatine Kinase 38 CK-MB (CK-2) 0.69 Troponin I < 0.012 Impressions: Chest X-Ray 01/10/19 00:00 IMPRESSION: No acute abnormality is identified. Guidance Fluoroscopy 01/11/19 00:00 IMPRESSION: SUCCESSFUL PLACEMENT OF A 5 FR DUAL LUMEN 33 CM PICC IN THE RIGHT BASILIC VEIN. Interventional Vascular Procedure 01/11/19 00:00 IMPRESSION: SUCCESSFUL PLACEMENT OF A 5 FR DUAL LUMEN 33 CM PICC IN THE RIGHT BASILIC VEIN. PICC Line Insertion 01/11/19 00:00 IMPRESSION: SUCCESSFUL PLACEMENT OF A 5 FR DUAL LUMEN 33 CM PICC IN THE RIGHT BASILIC VEIN. 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 NO APPARENT ACUTE FINDINGS. Upper GI and Small Bowel X-Ray 01/21/19 00:00 IMPRESSION: 1. POSSIBLE MUCOSAL THICKENING OF THE BODY OF THE STOMACH EXTENDING INTO THE FUNDUS, THIS MAY BE DUE TO POOR DISTENTION FROM THE SINGLE CONTRAST STUDY. ENDOSCOPY IS RECOMMENDED IF CLINICALLY INDICATED. 2. POSSIBLE TRANSITION ZONE IN THE DISTAL JEJUNUM OR PROXIMAL ILEUM LOCATED IN THE LEFT LOWER QUADRANT. THERE IS SLIGHTLY DILATED LOOPS OF SMALL BOWEL PROXIMALLY WITH NORMAL APPEARING SMALL BOWEL DISTAL TO THIS REGION. NO SMALL BOWEL OBSTRUCTION IS SEEN. KUB X-Ray 01/23/19 17:57 IMPRESSION: Nasogastric tube in the stomach. Abdomen X-Ray 01/24/19 00:00 IMPRESSION: Less distension compared to yesterday. Abdomen/Pelvis CT 01/24/19 00:00 IMPRESSION: 1. There is a probable partial obstruction of the proximal small bowel overlying the aortic aneurysm sac (series 2, image 42) with generally decompressed small bowel and colon distal to this point. There is significant distal gas and fluid to the rectum, evidencing incomplete obstruction. 2. Small volume four-quadrant ascites. Pleural effusions and anasarca. 3. Chronic incidental findings as above. Assessment & Plan - Diagnosis (1) Partial small bowel obstruction Is this a current diagnosis for this admission?: Yes (2) Abdominal pain Qualifiers: Abdominal location: upper abdomen, unspecified Qualified Code(s): R10.10 - Upper abdominal pain, unspecified Is this a current diagnosis for this admission?: Yes - Time Time Spent with patient: Less than 15 minutes - Plan Summary Plan Summary: This is a 58-year-old female who has been treated for a partial small bowel obstruction. Her NG tube was removed, and she has been tolerating liquids. She reports passing large amounts of flatus and having bowel movements. I will advance her diet today. Surgery will continue to follow.
[2019-01-26] MEDS: MORPHINE SULFATE 10 MG/ML INJ IV PRN (21:09)
[2019-01-26] MEDS: ATORVASTATIN CALCIUM 40 MG TABLET NG SCH (21:10)
[2019-01-26] MEDS: PROMETHAZINE HCL INJ 25 MG/1 ML VIAL IV PRN (23:06)
[2019-01-27] MEDS: DEXTROSE 5%-NORMAL SALINE 1,000 ML IV PRN ×2 (02:30→21:23)
[2019-01-27] MEDS: MORPHINE SULFATE 10 MG/ML INJ IV PRN ×3 (02:31→20:15)
[2019-01-27] MEDS: ONDANSETRON HCL INJ/PF 4 MG/2 ML SDV IV PRN (02:31)
[2019-01-27] MEDS ORDERED: PHARMACY COMMUNICATION ORDER MC NR (03:45)
[2019-01-27] MEDS ORDERED: OXYCODONE-ACETAMINOPHEN 5-325 MG TABLET NG PRN (04:00)
[2019-01-27] MEDS: KETOROLAC TROMETHAMINE INJ/PF 30 MG/1 ML SDV IV PRN (08:08)
[2019-01-27 08:31] LABS: HEMATOCRIT 32.4 % (36.0-47.0); HEMOGLOBIN 10.6 g/dL (12.0-15.5); MEAN CORPUSCULAR HEMOGLOBIN 28.9 pg (27.0-33.4); MEAN CORPUSCULAR HGB CONC 32.6 g/dL (32.0-36.0); MEAN CORPUSCULAR VOLUME 89 fl (80-97); PLATELET COUNT 284 10^3/uL (150-450); RED BLOOD COUNT 3.65 10^6/uL (3.72-5.28); RED CELL DISTRIBUTION WIDTH 19.1 % (11.5-14.0); WHITE BLOOD COUNT 5.5 10^3/uL (4.0-10.5)
[2019-01-27 08:48] LABS: ALBUMIN 1.8 g/dL (3.5-5.0); ALKALINE PHOSPHATASE 75 U/L (38-126); ANION GAP 8 (5-19); ASPARTATE AMINO TRANSFERASE 10 U/L (14-36); BILIRUBIN,DIRECT 0.2 mg/dL (0.0-0.4); BILIRUBIN,TOTAL 0.4 mg/dL (0.2-1.3); BLOOD UREA NITROGEN 11 mg/dL (7-20); CALCIUM 7.5 mg/dL (8.4-10.2); CARBON DIOXIDE 17 mmol/L (22-30); CHLORIDE 119 mmol/L (98-107); GLUCOSE 88 mg/dL (75-110); POTASSIUM 4.2 mmol/L (3.6-5.0); TOTAL PROTEIN 4.2 g/dL (6.3-8.2)
[2019-01-27 08:57] LABS: ABSOLUTE LYMPHOCYTES# (MANUAL) 0.9 10^3/uL (0.5-4.7); ABSOLUTE MONOCYTES # (MANUAL) 0.3 10^3/uL (0.1-1.4); BAND NEUTROPHILS % (MANUAL) 7 % (3-5); BASOPHILS % (MANUAL) 2 % (0-2); EOSINOPHILS % (MANUAL) 0 % (0-6); LYMPHOCYTES % (MANUAL) 17 % (13-45); MONOCYTES % (MANUAL) 5 % (3-13); SEGMENTED NEUTROPHILS % (MAN) 69 % (42-78); TOTAL CELLS COUNTED 100
[2019-01-27 08:59] LABS: ANISOCYTOSIS 2+; OVALOCYTES SLIGHT; SMUDGE CELLS PRESENT; TOXIC GRANULATION 1+; TOXIC VACUOLATION PRESENT
[2019-01-27 09:00] LABS: PLATELET COMMENT ADEQUATE
[2019-01-27] MEDS: TIZANIDINE HCL 4 MG TABLET NG SCH ×3 (09:19→22:46)
[2019-01-27] MEDS: HEPARIN SOD (PORCINE) 5,000 UNIT/ML 1 ML VIAL SUBCUT SCH ×3 (09:19→22:52)
[2019-01-27] MEDS: GABAPENTIN 300 MG CAPSULE NG SCH ×2 (09:19→17:34)
[2019-01-27] MEDS: NYSTATIN TOPICAL POWDER 15 GM TP SCH ×2 (09:20→17:35)
[2019-01-27] MEDS ORDERED: ROCURONIUM BROMIDE INJ 50 MG/5 ML VIAL IV ONE (09:30)
[2019-01-27] MEDS ORDERED: PHENYLEPHRINE HCL INJ/PF 10 MG/1 ML SDV ONE ×2 (09:30→22:29)
[2019-01-27] MEDS ORDERED: SUCCINYLCHOLINE CHLORIDE INJ 200 MG/10 ML VIAL ONE (09:30)
[2019-01-27] MEDS ORDERED: BUSPIRONE HCL 10 MG TABLET NG SCH (10:00)
--- NOTE | 2019-01-27 10:03 | RADIOLOGY REPORT (SQ) ---
EXAM DESCRIPTION: KUB/ABDOMEN (SINGLE VIEW) COMPLETED DATE/TIME: 01/27/2019 9:30 am REASON FOR STUDY: SBO COMPARISON: 01/24/2019. CT 01/24/2019. NUMBER OF VIEWS: One view. TECHNIQUE: Supine radiographic image of the abdomen acquired. LIMITATIONS: None. FINDINGS: BOWEL GAS PATTERN: Gaseous distension of stomach and numerous loops of bowel. Many of the se look like small bowel loops. Degree of distention looks progressive compared to 3 days ago. CALCIFICATIONS: No suspicious calcifications. SOFT TISSUES: No gross mass or suggestion of organomegaly. HARDWARE: Aortic endograft. Cholecystectomy clips. Nasogastric tube no longer in place. BONES: No acute fracture. No worrisome bone lesions. OTHER: No other significant finding. IMPRESSION: Progressive small bowel gaseous distension. Worrisome for worsening of the obstruction. TECHNICAL DOCUMENTATION: JOB ID: [id number] [employer]- All Rights Reserved Reading location - IP/workstation name: [email or web address]
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
[2019-01-27] MEDS: FLUCONAZOLE 200 MG/NS RTU 200 MG/100 ML RTUPB IV SCH (12:23)
[2019-01-27] MEDS: ALBUMIN HUMAN 12.5 GM/50 ML RTUINJ IV SCH ×6 (12:24→22:46)
[2019-01-27] MEDS: PANTOPRAZOLE SODIUM 40 MG VIAL IV SCH (12:40)
[2019-01-27] MEDS ORDERED: PIPERACILLIN SODIUM/TAZOBACTAM 3.375 GM in NORMAL SALINE 100 ML IV ONE (13:00)
[2019-01-27] MEDS ORDERED: MIDAZOLAM 2 MG/2 ML INJ ONE (13:00)
[2019-01-27] MEDS ORDERED: PROPOFOL INJ 200 MG/20 ML VIAL IV ONE (13:00)
[2019-01-27] MEDS ORDERED: MORPHINE SULFATE 10 MG/ML INJ ONE (13:00)
[2019-01-27] MEDS ORDERED: FENTANYL CITRATE INJ/PF 100 MCG/2 ML AMPUL ONE ×2 (13:00→17:47)
[2019-01-27] MEDS ORDERED: MEPERIDINE HCL/PF INJ 25 MG/1 ML DISP.SYRIN IV PRN (14:41)
[2019-01-27] MEDS ORDERED: FENTANYL CITRATE INJ/PF 100 MCG/2 ML AMPUL IV PRN ×3 (14:41)
[2019-01-27] MEDS ORDERED: DIPHENHYDRAMINE HCL 50 MG/ML VIAL IV PRN (14:41)
[2019-01-27] MEDS ORDERED: PROMETHAZINE HCL INJ 25 MG/1 ML VIAL IV PRN ×2 (14:41)
[2019-01-27] MEDS ORDERED: SUGAMMADEX SODIUM 200 MG/2 ML SDV IV ONE (16:28)
[2019-01-27] MEDS ORDERED: PIPERACILLIN/TAZOBACTAM 3.375 GM VIAL IV ONE (17:00)
[2019-01-27] MEDS ORDERED: ESMOLOL HCL INJ/PF 100 MG/10 ML SDV IV ONE (17:01)
[2019-01-27] MEDS ORDERED: METOPROLOL TARTRATE PF/INJ 5 MG/5 ML SDV IV ONE ×3 (17:02→20:45)
[2019-01-27] MEDS: NORMAL SALINE 10 ML SDV (SCHEDULED) IV SCH ×2 (17:33→22:52)
[2019-01-27] MEDS: FLUTICASONE/VILANTEROL 100-25 MCG/DOSE IH SCH (17:33)
[2019-01-27] MEDS ORDERED: ACETAMINOPHEN 1,000 MG/100 ML RTUPB IV ONE (17:47)
[2019-01-27] MEDS: ACETAMINOPHEN 1,000 MG/100 ML RTUPB IV PRN ×2 (17:50→21:17)
--- NOTE | 2019-01-27 17:59 | Operative Report ---
Operative Report DATE OF SURGERY: 01/27/19 PREOPERATIVE DIAGNOSIS: Small bowel obstruction due to adhesions POSTOPERATIVE DIAGNOSIS: Same with internal herniation OPERATION: Exploratory laparotomy, lysis of adhesions, small bowel resection with primary anastomosis SURGEON: ALIYA SMART ANESTHESIA: GA TISSUE REMOVED OR ALTERED: Segment of small bowel COMPLICATIONS: None ESTIMATED BLOOD LOSS: 150 cc QUANTITATIVE BLOOD LOSS: 150 INTRAOPERATIVE FINDINGS: Extensive small bowel adhesions with internal herniation causing obstruction PROCEDURE: After adequate general anesthesia patient was placed in supine position on the abdomen prepped and draped in the usual sterile fashion. Appropriate timeout was then called. Next a midline incision was then made at the epigastric area. Down just below the umbilicus. The fascia was then open and there was some omental adhesions underneath which were lysed with the use of cautery. There was some fluid inside the abdomen that was quite clear. Patient had extensive adhesions of the small bowel. Small bowel was subsequently lysed with the use of scissors and cautery. The small bowel appears to be caught in the internal herniation towards the right lower quadrant. While trying to bluntly dissect the wall was torn and there was some undigested food that extruded out. This was then suctioned out and cleaned. It was then stapled proximally and divided with a CHIRAG stapler. The distal bowel was then dissected and noted this area to have partially collapsed and then with further extensive adhesions. The internal herniation appears to be through an adhesion between the wall of the mesentery and adhesions. Adhesions were lysed and distal small bowel was then released but there was extensive adhesions distally. Lysis of adhesions took at least 45 minutes. The small bowel, part of the distal jejunum, was then divided with a CHIRAG between the area where there were adhesions and distally where the adhesions were practically absent. The small bowel segment was then released from the mesentery with the use of LigaSure. At least a foot and a half of small bowel was removed. The abdominal cavity was then irrigated with saline solution. The 2 ends of the small bowel were then anastomosed in a functional [id number] fashion with the use of CHIRAG 75 mm stapler with blue load. The opening between the 2 bowels were then closed with a TA 60. A single suture of 2-0 silk was placed right at the crotch to prevent separation of the onel. Good blood supply to both ends of the bowel as tested with the use of Doppler there was also good peristaltic flow on both sides of the bowel. However, there were some patchy areas of dark discoloration on the distal small bowel but appears to be improving during closure of the abdomen. The defect in the mesentery was then closed with running suture using 2-0 Vicryl. Further irrigation of the abdominal cavity was done using at least 4 L of saline. The appendix was identified and noted to be normal and was left in place. The fascia was then reapproximated with single strand #1 PDS starting at both ends and tying the sutures together just above the umbilicus. Subcu was then irrigated with saline and the skin was then reapproximated with onel. Sterile dressings were placed over the operative site. Needle instrument sponge count were all correct and estimated blood loss about 150 cc. Patient then brought to PACU extubated in guarded condition.
[2019-01-27] MEDS ORDERED: PIPERACILLIN/TAZOBACTAM 3.375 GM VIAL IV SCH (18:00)
[2019-01-27] MEDS ORDERED: GLUCAGON,HUMAN RECOMB 1 MG INJ SUBCUT PRN (18:01)
--- NOTE | 2019-01-27 18:27 | PDOC PROGRESS REPORT ---
Subjective Progress Note for:: 01/27/19 Subjective:: Critical Care Progress Note. Pt underwent small bowel resection and primary anastomosis. She is currently in the PACU and will be admitted to the ICU post-op. She is currently hypotensive with an SBP in the high 80s and is tachycardic with a pulse in the 110s. In the OR she got 3300 ml IVF. In the PACU, she received 20 mg of esmolol and 5 mg of lopressor. Reason For Visit: SEVERE SEPSIS WITH SEPTIC SHOCK Physical Exam Vital Signs: Temp Pulse Resp BP Pulse Ox 97.4 F 101 H 18 84/48 L 97 01/27/19 12:45 01/27/19 12:45 01/27/19 12:45 01/27/19 12:45 01/27/19 12:45 Intake & Output 01/26/19 01/27/19 01/28/19 07:59 06:59 06:59 Intake Total Output Total 100 Balance -100 Weight General appearance: PRESENT: no acute distress, well-developed, well-nourished Respiratory exam: PRESENT: decreased breath sounds, unlabored Cardiovascular exam: PRESENT: tachycardia, other - regular rhythm, no mrg GI/Abdominal exam: PRESENT: other - midline incision bandaged Gentrourinary exam: PRESENT: indwelling catheter Musculoskeletal exam: PRESENT: normal inspection Results Laboratory Results: 01/27/19 08:00 01/27/19 08:00 01/27/19 01/27/19 01/27/19 08:00 08:00 13:57 WBC 5.5 RBC 3.65 L Hgb 10.6 L Hct 32.4 L MCV 89 MCH 28.9 MCHC 32.6 RDW 19.1 H Plt Count 284 Seg Neutrophils % Not Reportable Sodium 143.6 Potassium 4.2 Chloride 119 H Carbon Dioxide 17 L Anion Gap 8 BUN 11 Creatinine 0.99 Est GFR ( Amer) > 60 Glucose 88 Calcium 7.5 L Total Bilirubin 0.4 AST 10 L Alkaline Phosphatase 75 Total Protein 4.2 L Albumin 1.8 L Blood Type O NEGATIVE Antibody Screen POSITIVE 01/23/19 10:36 Catheterized Urine Urine Culture - Final Citrobacter Freundii 01/10/19 01/10/19 19:47 19:47 Creatine Kinase 38 CK-MB (CK-2) 0.69 Troponin I < 0.012 Impressions: Chest X-Ray 01/10/19 00:00 IMPRESSION: No acute abnormality is identified. Guidance Fluoroscopy 01/11/19 00:00 IMPRESSION: SUCCESSFUL PLACEMENT OF A 5 FR DUAL LUMEN 33 CM PICC IN THE RIGHT BASILIC VEIN. Interventional Vascular Procedure 01/11/19 00:00 IMPRESSION: SUCCESSFUL PLACEMENT OF A 5 FR DUAL LUMEN 33 CM PICC IN THE RIGHT BASILIC VEIN. PICC Line Insertion 01/11/19 00:00 IMPRESSION: SUCCESSFUL PLACEMENT OF A 5 FR DUAL LUMEN 33 CM PICC IN THE RIGHT BASILIC VEIN. 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 NO APPARENT ACUTE FINDINGS. Upper GI and Small Bowel X-Ray 01/21/19 00:00 IMPRESSION: 1. POSSIBLE MUCOSAL THICKENING OF THE BODY OF THE STOMACH EXTENDING INTO THE FUNDUS, THIS MAY BE DUE TO POOR DISTENTION FROM THE SINGLE CO NTRAST STUDY. ENDOSCOPY IS RECOMMENDED IF CLINICALLY INDICATED. 2. POSSIBLE TRANSITION ZONE IN THE DISTAL JEJUNUM OR PROXIMAL ILEUM LOCATED IN THE LEFT LOWER QUADRANT. THERE IS SLIGHTLY DILATED LOOPS OF SMALL BOWEL PROXIMALLY WITH NORMAL APPEARING SMALL BOWEL DISTAL TO THIS REGION. NO SMALL BOWEL OBSTRUCTION IS SEEN. Abdomen X-Ray 01/24/19 00:00 IMPRESSION: Less distension compared to yesterday. Abdomen/Pelvis CT 01/24/19 00:00 IMPRESSION: 1. There is a probable partial obstruction of the proximal small bowel overlying the aortic aneurysm sac (series 2, image 42) with generally decompressed small bowel and colon distal to this point. There is significant distal gas and fluid to the rectum, evidencing incomplete obstruction. 2. Small volume four-quadrant ascites. Pleural effusions and anasarca. 3. Chronic incidental findings as above. KUB X-Ray 01/27/19 08:25 IMPRESSION: Progressive small bowel gaseous distension. Worrisome for worsening of the obstruction. Assessment & Plan - Diagnosis (1) Small bowel obstruction Is this a current diagnosis for this admission?: Yes (2) UTI (urinary tract infection), bacterial Is this a current diagnosis for this admission?: Yes (3) Anemia in chronic illness Is this a current diagnosis for this admission?: Yes (4) Decubitus ulcer of sacral region Qualifiers: Pressure injury stage: unspecified pressure injury stage Qualified Code(s): L89.159 - Pressure ulcer of sacral region, unspecified stage Is this a current diagnosis for this admission?: Yes (5) Hypotension Is this a current diagnosis for this admission?: Yes - Time Time Spent with patient: 25-34 minutes Level of Care: ICU Provider Note Provider Note: Assessment: 58 yo woman with small bowel obstruction who underwent small bowel resection with primary anastomosis today. Plan: 1. Respiratory: stable on nasal cannula 2. CV: hypotension and tachyardia due to volume depletion. Continue IVF and give IV albumin 3. Surgery: small bowel obstruction s/p small bowel resection with primary anastomosis today. Care per surgery. 4 ID: UTI. continue zosyn 5. Nutrition: NPO per surgery 6. Endocrine: accuchecks, SSI 7. Prophylaxis: scds, sq heparin 8. Dispositon: monitor in ICU post-operatively
[2019-01-27] MEDS ORDERED: NALOXONE HCL INJ/PF 0.4 MG/1 ML SDV ONE ×2 (19:21→21:45)
[2019-01-27] MEDS ORDERED: LORAZEPAM INJ 2 MG/1 ML VIAL ONE (20:25)
[2019-01-27] MEDS ORDERED: LORAZEPAM INJ 2 MG/1 ML VIAL IV PRN (20:56)
--- NOTE | 2019-01-27 21:38 | EKG REPORT ---
SEVERITY:- BORDERLINE ECG - SINUS TACHYCARDIA LOW VOLTAGE THROUGHOUT BORDERLINE T ABNORMALITIES, ANT-LAT LEADS : Confirmed by: Cory Samson MD 27-Jan-2019 21:36:51
[2019-01-27] MEDS: ATORVASTATIN CALCIUM 40 MG TABLET NG SCH (22:46)
[2019-01-27] MEDS: DEXTROSE 5%-WATER 250 ML with PHENYLEPHRINE HCL 40 MG IV PRN ×2 (22:48)
[2019-01-28 02:45] LABS: ANION GAP 8 (5-19); BLOOD UREA NITROGEN 11 mg/dL (7-20); CALCIUM 7.6 mg/dL (8.4-10.2); CARBON DIOXIDE 16 mmol/L (22-30); CHLORIDE 115 mmol/L (98-107); POTASSIUM 4.2 mmol/L (3.6-5.0)
[2019-01-28 02:52] LABS: GLUCOSE 54 mg/dL (75-110)
[2019-01-28] MEDS: DEXTROSE 50%-WATER 25 GM/50 ML DISP.SYRIN IV PRN (03:38)
[2019-01-28] MEDS: MAGNESIUM SULFATE/D5W 1 GM/100 ML RTUPB IV SCH ×3 (03:48→09:52)
[2019-01-28 05:12] LABS: HEMATOCRIT 28.4 % (36.0-47.0); HEMOGLOBIN 9.2 g/dL (12.0-15.5); MEAN CORPUSCULAR HEMOGLOBIN 28.7 pg (27.0-33.4); MEAN CORPUSCULAR HGB CONC 32.3 g/dL (32.0-36.0); MEAN CORPUSCULAR VOLUME 89 fl (80-97); PLATELET COUNT 357 10^3/uL (150-450); RED BLOOD COUNT 3.19 10^6/uL (3.72-5.28); RED CELL DISTRIBUTION WIDTH 19.7 % (11.5-14.0); WHITE BLOOD COUNT 6.7 10^3/uL (4.0-10.5)
[2019-01-28 05:17] LABS: ALBUMIN 2.3 g/dL (3.5-5.0); ALKALINE PHOSPHATASE 50 U/L (38-126); ANION GAP 12 (5-19); ASPARTATE AMINO TRANSFERASE 18 U/L (14-36); BILIRUBIN,DIRECT 0.4 mg/dL (0.0-0.4); BILIRUBIN,TOTAL 0.6 mg/dL (0.2-1.3); BLOOD UREA NITROGEN 10 mg/dL (7-20); CALCIUM 7.4 mg/dL (8.4-10.2); CARBON DIOXIDE 14 mmol/L (22-30); CHLORIDE 114 mmol/L (98-107); GLUCOSE 200 mg/dL (75-110); TOTAL PROTEIN 4.6 g/dL (6.3-8.2)
[2019-01-28] MEDS ORDERED: PHENYLEPHRINE HCL INJ/PF 10 MG/1 ML SDV ONE (05:51)
[2019-01-28] MEDS: NYSTATIN TOPICAL POWDER 15 GM TP SCH ×2 (06:00→18:44)
[2019-01-28] MEDS: HEPARIN SOD (PORCINE) 5,000 UNIT/ML 1 ML VIAL SUBCUT SCH ×2 (06:00→14:33)
[2019-01-28] MEDS: DEXTROSE 5%-WATER 250 ML with PHENYLEPHRINE HCL 40 MG IV PRN ×4 (06:02→12:32)
[2019-01-28] MEDS: DEXTROSE 5%-NORMAL SALINE 1,000 ML IV PRN (06:05)
[2019-01-28 06:11] LABS: ABSOLUTE LYMPHOCYTES# (MANUAL) 1.1 10^3/uL (0.5-4.7); ABSOLUTE MONOCYTES # (MANUAL) 0.4 10^3/uL (0.1-1.4); BASOPHILS % (MANUAL) 0 % (0-2); EOSINOPHILS % (MANUAL) 0 % (0-6); LYMPHOCYTES % (MANUAL) 17 % (13-45); METAMYELOCYTES % (MANUAL) 5 % (0-1); MONOCYTES % (MANUAL) 6 % (3-13); MYELOCYTES % (MANUAL) 1 % (0); SEGMENTED NEUTROPHILS % (MAN) 34 % (42-78); TOTAL CELLS COUNTED 100
[2019-01-28 06:12] LABS: ANISOCYTOSIS 2+
[2019-01-28 06:14] LABS: BAND NEUTROPHILS % (MANUAL) 37 % (3-5); PLATELET COMMENT ADEQUATE
[2019-01-28 07:00] LABS: INTERNATIONAL RATION (INR) 1.64; PROTHROMBIN TIME 19.6 SEC (11.4-15.4)
[2019-01-28 07:01] LABS: PARTIAL THROMBOPLASTIN TIME 50.7 SEC (23.5-35.8)
[2019-01-28] MEDS ORDERED: NORMAL SALINE 500 ML IV ONE (07:19)
[2019-01-28] MEDS: TIZANIDINE HCL 4 MG TABLET NG SCH ×2 (07:55→14:08)
[2019-01-28] MEDS: ONDANSETRON HCL INJ/PF 4 MG/2 ML SDV IV PRN (08:36)
[2019-01-28] MEDS: DEXTROSE 5%-LACTATED RINGERS 1,000 ML IV PRN ×2 (09:00→18:58)
[2019-01-28 09:37] LABS: PATH REVIEW PATHOLOGIST REVIEWED
--- NOTE | 2019-01-28 09:44 | PDOC PROGRESS REPORT ---
Subjective Progress Note for:: 01/28/19 Subjective:: Patient extubated following exploratory laparotomy last evening. Remains in the ICU, support lines in place. Moaning and communicating fairly appropriately. Reason For Visit: SEVERE SEPSIS WITH SEPTIC SHOCK Physical Exam Vital Signs: Temp Pulse Resp BP Pulse Ox 99.0 F 106 H 9 L 107/89 H 98 01/28/19 08:00 01/28/19 08:00 01/28/19 08:00 01/28/19 08:00 01/28/19 08:00 Intake & Output 01/27/19 01/28/19 01/29/19 06:59 06:59 06:59 Intake Total 5778 600 Output Total 3400 Balance 2378 600 Weight 83.6 kg General appearance: PRESENT: mild distress, other - Patient states she is thirsty medical generalized anasarca; nasogastric tube with minimal drainage Eye exam: PRESENT: EOMI Mouth exam: PRESENT: dry mucosa Respiratory exam: PRESENT: rhonchi Cardiovascular exam: PRESENT: tachycardia GI/Abdominal exam: PRESENT: other - Operative dressing, honeycomb style, with some drainage. The abdomen is not distended. Hypoactive bowel sounds. Musculoskeletal exam: PRESENT: other - Generalized anasarca. Extremities are room temperature Neurological exam: PRESENT: awake, oriented to person Results Laboratory Results: 01/28/19 04:26 01/28/19 04:26 01/27/19 01/27/19 01/28/19 13:57 21:23 04:26 WBC 6.7 RBC 3.19 L Hgb 9.2 L Hct 28.4 L MCV 89 MCH 28.7 MCHC 32.3 RDW 19.7 H Plt Count 357 Seg Neutrophils % Not Reportable Sodium 139.2 Potassium 4.2 Chloride 115 H Carbon Dioxide 16 L Anion Gap 8 BUN 11 Creatinine 1.10 Est GFR ( Amer) > 60 Glucose 54 L Calcium 7.6 L Magnesium 1.2 L* Total Bilirubin AST Alkaline Phosphatase Total Protein Albumin Blood Type O NEGATIVE Antibody Screen POSITIVE 01/28/19 04:26 WBC RBC Hgb Hct MCV MCH MCHC RDW Plt Count Seg Neutrophils % Sodium 139.8 Potassium 4.0 Chloride 114 H Carbon Dioxide 14 L Anion Gap 12 BUN 10 Creatinine 1.20 Est GFR ( Amer) 55 L Glucose 200 H Calcium 7.4 L Magnesium Total Bilirubin 0.6 AST 18 Alkaline Phosphatase 50 Total Protein 4.6 L Albumin 2.3 L Blood Type Antibody Screen 01/23/19 10:36 Catheterized Urine Urine Culture - Final Citrobacter Freundii 01/10/19 01/10/19 19:47 19:47 Creatine Kinase 38 CK-MB (CK-2) 0.69 Troponin I < 0.012 Impressions: Chest X-Ray 01/10/19 00:00 IMPRESSION: No acute abnormality is identified. Guidance Fluoroscopy 01/11/19 00:00 IMPRESSION: SUCCESSFUL PLACEMENT OF A 5 FR DUAL LUMEN 33 CM PICC IN THE RIGHT BASILIC VEIN. Interventional Vascular Procedure 01/11/19 00:00 IMPRESSION: SUCCESSFUL PLACEMENT OF A 5 FR DUAL LUMEN 33 CM PICC IN THE RIGHT BASILIC VEIN. PICC Line Insertion 01/11/19 00:00 IMPRESSION: SUCCESSFUL PLACEMENT OF A 5 FR DUAL LUMEN 33 CM PICC IN THE RIGHT BASILIC VEIN. 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 NO APPARENT ACUTE FINDINGS. Upper GI and Small Bowel X-Ray 01/21/19 00:00 IMPRESSION: 1. POSSIBLE MUCOSAL THICKENING OF THE BODY OF THE STOMACH EXTENDING INTO THE FUNDUS, THIS MAY BE DUE TO POOR DISTENTION FROM THE SINGLE CONTRAST STUDY. ENDOSCOPY IS RECOMMENDED IF CLINICALLY INDICATED. 2. POSSIBLE TRANSITION ZONE IN THE DISTAL JEJUNUM OR PROXIMAL ILEUM LOCATED IN THE LEFT LOWER QUADRANT. THERE IS SLIGHTLY DILATED LOOPS OF SMALL BOWEL PROXIMALLY WITH NORMAL APPEARING SMALL BOWEL DISTAL TO THIS REGION. NO SMALL BOWEL OBSTRUCTION IS SEEN. Abdomen X-Ray 01/24/19 00:00 IMPRESSION: Less distension compared to yesterday. Abdomen/Pelvis CT 01/24/19 00:00 IMPRESSION: 1. There is a probable partial obstruction of the proximal small bowel overlying the aortic aneurysm sac (series 2, image 42) with generally decompressed small bowel and colon distal to this point. There is significant distal gas and fluid to the rectum, evidencing incomplete obstruction. 2. Small volume four-quadrant ascites. Pleural effusions and anasarca. 3. Chronic incidental findings as above. KUB X-Ray 01/27/19 08:25 IMPRESSION: Progressive small bowel gaseous distension. Worrisome for worsening of the obstruction. Assessment & Plan - Diagnosis (1) Partial small bowel obstruction Is this a current diagnosis for this admission?: Yes Plan: Impression: 4-year-old white female with multiple chronic medical problems, chronically deconditioned and malnourished, 1 day status post exploratory laparotomy, mid small bowel resection with primary anastomosis compromised small bowel due to adhesions. Hemodynamic instability last night stabilized with fluid, albumin and the low density is significant. Moderate oliguria. Primary concern is worsening metabolic acidosis Discussion and recommendations 1. I spoke with nursing staff, and survey technician this morning about worsening metabolic acidosis. Subsequently discussed patient with Dr. Melgoza. Although there was no obvious sign of ischemic bowel at the time of laparotomy closure, there was some concern about the vascular integrity of the distal small bowel. 2. Therefore we will support the patient with IV fluids, and repeat electrolytes, monitor acidosis status very closely. If she does not improve in the next 6 to 8 hours, reexploration may be indicated. 3. To address malnutrition, I have suggested we start TPN through existing PICC line. (2) C. difficile colitis Is this a current diagnosis for this admission?: Yes - Time Time Spent with patient: 15-24 minutes Smoking Cessation Education: over 10 minutes
[2019-01-28] MEDS ORDERED: MAGNESIUM SULFATE/D5W 1 GM/100 ML RTUPB IV ONE (09:48)
[2019-01-28] MEDS: FLUCONAZOLE 200 MG/NS RTU 200 MG/100 ML RTUPB IV SCH (09:53)
[2019-01-28] MEDS: PANTOPRAZOLE SODIUM 40 MG VIAL IV SCH (09:54)
[2019-01-28] MEDS: NORMAL SALINE 10 ML SDV (SCHEDULED) IV SCH (09:56)
[2019-01-28] MEDS: NORMAL SALINE 10 ML SDV (AFTER EACH USE) IV PRN (09:56)
[2019-01-28] MEDS: KETOROLAC TROMETHAMINE INJ/PF 30 MG/1 ML SDV IV PRN (10:39)
[2019-01-28] MEDS ORDERED: NORMAL SALINE 1000 ML 1,000 ML IV ONE (11:59)
[2019-01-28] MEDS: FLUTICASONE/VILANTEROL 100-25 MCG/DOSE IH SCH (12:33)
[2019-01-28 12:40] LABS: ANION GAP 10 (5-19); BLOOD UREA NITROGEN 11 mg/dL (7-20); CALCIUM 7.5 mg/dL (8.4-10.2); CARBON DIOXIDE 16 mmol/L (22-30); CHLORIDE 116 mmol/L (98-107); GLUCOSE 102 mg/dL (75-110)
[2019-01-28] MEDS: MORPHINE SULFATE 10 MG/ML INJ IV PRN (12:55)
--- NOTE | 2019-01-28 13:58 | PDOC PROGRESS REPORT ---
Subjective Progress Note for:: 01/28/19 Subjective:: Altered mental status but no obvious complaints. Reason For Visit: Ex lap for lysis of adhesions and SBO Physical Exam Vital Signs: Temp Pulse Resp BP Pulse Ox 99.0 F 117 H 12 85/56 L 96 01/28/19 12:00 01/28/19 12:00 01/28/19 12:27 01/28/19 12:27 01/28/19 12:27 Intake & Output 01/27/19 01/28/19 01/29/19 06:59 06:59 06:59 Intake Total 5878 950 Output Total 3400 40 Balance 2478 910 Weight 83.6 kg General appearance: PRESENT: no acute distress Head exam: PRESENT: atraumatic, normocephalic Eye exam: PRESENT: conjunctiva pink, EOMI, PERRLA. ABSENT: scleral icterus Ear exam: PRESENT: normal external ear exam Mouth exam: PRESENT: dry mucosa Respiratory exam: PRESENT: clear to auscultation abraham, decreased breath sounds Cardiovascular exam: PRESENT: RRR. ABSENT: diastolic murmur, rubs, systolic murmur Vascular exam: PRESENT: normal capillary refill GI/Abdominal exam: PRESENT: hypoactive bowel sounds, soft, tenderness Additonal comments: At incision Rectal exam: PRESENT: deferred Gentrourinary exam: PRESENT: indwelling catheter Musculoskeletal exam: PRESENT: full ROM Neurological exam: PRESENT: altered, awake Psychiatric exam: PRESENT: agitated, anxious Skin exam: PRESENT: dry, intact, warm. ABSENT: cyanosis, rash Results Laboratory Results: 01/28/19 04:26 01/28/19 12:00 01/27/19 01/27/19 01/28/19 13:57 21:23 04:26 WBC 6.7 RBC 3.19 L Hgb 9.2 L Hct 28.4 L MCV 89 MCH 28.7 MCHC 32.3 RDW 19.7 H Plt Count 357 Seg Neutrophils % Not Reportable Sodium 139.2 Potassium 4.2 Chloride 115 H Carbon Dioxide 16 L Anion Gap 8 BUN 11 Creatinine 1.10 Est GFR ( Amer) > 60 Glucose 54 L Lactic Acid Calcium 7.6 L Magnesium 1.2 L* Total Bilirubin AST Alkaline Phosphatase Total Protein Albumin Blood Type O NEGATIVE Antibody Screen POSITIVE 01/28/19 01/28/19 01/28/19 04:26 12:00 12:00 WBC RBC Hgb Hct MCV MCH MCHC RDW Plt Count Seg Neutrophils % Sodium 139.8 141.5 Potassium 4.0 4.0 Chloride 114 H 116 H Carbon Dioxide 14 L 16 L Anion Gap 12 10 BUN 10 11 Creatinine 1.20 1.23 Est GFR ( Amer) 55 L 54 L Glucose 200 H 102 Lactic Acid 2.8 H Calcium 7.4 L 7.5 L Magnesium Total Bilirubin 0.6 AST 18 Alkaline Phosphatase 50 Total Protein 4.6 L Albumin 2.3 L Blood Type Antibody Screen 01/23/19 09:52 Blood Blood Culture - Final NO GROWTH IN 5 DAYS 01/23/19 09:42 Blood Blood Culture - Final NO GROWTH IN 5 DAYS 01/10/19 01/10/19 19:47 19:47 Creatine Kinase 38 CK-MB (CK-2) 0.69 Troponin I < 0.012 Impressions: Chest X-Ray 01/10/19 00:00 IMPRESSION: No acute abnormality is identified. Guidance Fluoroscopy 01/11/19 00:00 IMPRESSION: SUCCESSFUL PLACEMENT OF A 5 FR DUAL LUMEN 33 CM PICC IN THE RIGHT BASILIC VEIN. Interventional Vascular Procedure 01/11/19 00:00 IMPRESSION: SUCCESSFUL PLACEMENT OF A 5 FR DUAL LUMEN 33 CM PICC IN THE RIGHT BASILIC VEIN. PICC Line Insertion 01/11/19 00:00 IMPRESSION: SUCCESSFUL PLACEMENT OF A 5 FR DUAL LUMEN 33 CM PICC IN THE RIGHT BASILIC VEIN. 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 NO APPARENT ACUTE FINDINGS. Upper GI and Small Bowel X-Ray 01/21/19 00:00 IMPRESSION: 1. POSSIBLE MUCOSAL THICKENING OF THE BODY OF THE STOMACH EXTENDING INTO THE FUNDUS, THIS MAY BE DUE TO POOR DISTENTION FROM THE SINGLE CONTRAST STUDY. ENDOSCOPY IS RECOMMENDED IF CLINICALLY INDICATED. 2. POSSIBLE TRANSITION ZONE IN THE DISTAL JEJUNUM OR PROXIMAL ILEUM LOCATED IN THE LEFT LOWER QUADRANT. THERE IS SLIGHTLY DILATED LOOPS OF SMALL BOWEL PROXIMALLY WITH NORMAL APPEARING SMALL BOWEL DISTAL TO THIS REGION. NO SMALL BOWEL OBSTRUCTION IS SEEN. Abdomen X-Ray 01/24/19 00:00 IMPRESSION: Less distension compared to yesterday. Abdomen/Pelvis CT 01/24/19 00:00 IMPRESSION: 1. There is a probable partial obstruction of the proximal small bowel overlying the aortic aneurysm sac (series 2, image 42) with generally decompressed small bowel and colon distal to this point. There is significant distal gas and fluid to the rectum, evidencing incomplete obstruction. 2. Small volume four-quadrant ascites. Pleural effusions and anasarca. 3. Chronic incidental findings as above. KUB X-Ray 01/27/19 08:25 IMPRESSION: Progressive small bowel gaseous distension. Worrisome for worsening of the obstruction. Assessment & Plan - Diagnosis (1) Dehydration Is this a current diagnosis for this admission?: Yes Plan: She has received 1 L of NS as bolus. Urine output good. Trying to wean off phenylephrine (2) Acute metabolic encephalopathy Is this a current diagnosis for this admission?: Yes Plan: Baseline is altered (3) Diarrhea Qualifiers: Diarrhea type: functional diarrhea Qualified Code(s): K59.1 - Functional diarrhea Is this a current diagnosis for this admission?: Yes Plan: This may priscilla with bowel resection. Needs more time. (4) Small bowel obstruction due to adhesions Is this a current diagnosis for this admission?: Yes Plan: Resolved with surgery. (5) Hypomagnesemia Is this a current diagnosis for this admission?: Yes Plan: Level 1.2 before replacement. Will need to watch for refeeding syndrome. - Time Time Spent with patient: 35 or more minutes Total Critical Time (Minutes): 35 Level of Care: ICU Medications reviewed and adjusted accordingly: Yes Anticipated discharge: SNF Within: Other - Inpatient Certification Based on my medical assessment, after consideration of the patient's comorbidities, presenting symptoms, or acuity I expect that the services needed warrant INPATIENT care.: Yes I certify that my determination is in accordance with my understanding of Medicare's requirements for reasonable and necessary INPATIENT services [42 CFR 412.3e].: Yes Medical Necessity: Failure to Improve With Outpatient Therapy, Significant Comorbidiites Make Outpatient Treatment Too Risky, Need Close Monitoring Due to Risk of Patient Decompensation, Need For IV Fluids, Need for Pain Control, Need for IV Antibiotics, Need for Surgery, Risk of Complication if Not Cared For in Hospital
[2019-01-28] MEDS ORDERED: FENTANYL CITRATE INJ/PF 100 MCG/2 ML AMPUL ONE (14:48)
[2019-01-28] MEDS ORDERED: MORPHINE SULFATE 10 MG/ML INJ ONE (14:48)
[2019-01-28] MEDS ORDERED: PROPOFOL INJ 200 MG/20 ML VIAL IV ONE (14:48)
[2019-01-28] MEDS ORDERED: MIDAZOLAM 2 MG/2 ML INJ ONE (14:48)
[2019-01-28] MEDS ORDERED: PIPERACILLIN SODIUM/TAZOBACTAM 3.375 GM in NORMAL SALINE 100 ML IV SCH (15:00)
[2019-01-28] MEDS ORDERED: MAGNESIUM SULFATE 4 GM/100 ML RTUPB IV ONE (15:00)
[2019-01-28] MEDS ORDERED: BUPIVACAINE INJ/PF LIPOSOME/PF 266 MG/20 ML SDV ONE (15:01)
--- NOTE | 2019-01-28 17:26 | Operative Report ---
Operative Report DATE OF SURGERY: 01/28/19 PREOPERATIVE DIAGNOSIS: 1. Status post exploratory laparotomy with lysis of ad hesions small bowel obstruction. 2. Persisting metabolic acidosis POSTOPERATIVE DIAGNOSIS: Same with progressive ischemia of the small intestines with early necrosis OPERATION: 1. Second look reexploration laparotomy. 2. Segmental resection 75 cm of ileum, with stapled ends left in situ. 3. Application of wound VAC to open abdominal cavity. 4. Insertion of left subclavian central venous access catheter. SURGEON: YARITZA WOOD 1ST ENTRY LEVEL CIVIL ENGINEER: ALIYA MELGOZA ANESTHESIA: GA TISSUE REMOVED OR ALTERED: 75 cm of ileum COMPLICATIONS: None ESTIMATED BLOOD LOSS: 25 cc INTRAOPERATIVE FINDINGS: See below PROCEDURE: The patient is a 58-year-old white female with multiple chronic medical problems, hospitalized at [facility] for 2 weeks with a partial small bowel obstruction. She underwent exporter laparotomy lysis of adhesions small bowel resection on January [address] Aliya Melgoza. The patient was transferred to the intensive care unit in guarded condition. She was resuscitated with low-dose Bijan-Synephrine, and IV fluids overnight. The following morning patient had a sodium carbonate down to 14. Her fluids were increased, she remained in guarded condition. A repeat bicarbonate level was 16, however because of concerns for intra-abdominal perfusion, specifically ischemic bowel, the operative team recommended the patient be taken back to the operating room for exploratory surgery. This was discussed with the family in detail, specifically the patient's and daughter. We explained that there were risks associated with the patient's condition including worsening cardiovascular collapse, intra-abdominal catastrophe due to infarcting small bowel, and even . The patient's daughter provided consent and agreed to proceed. The patient was taken directly to the operating room where she maintained a mean arterial pressure in the mid 60s. The left neck was exposed and a central venous access catheter was inserted by Dr. Wood. Initial attempt was made to insert the line in the neck into the internal jugular vein, however the ultrasound device was malfunctioning. The left neck was prepped and draped in sterile fashion and after 2 attempts at finding the internal jugular vein with a needle, the procedure was aborted The left subclavian area was now chosen as the site of choice. The 18gauge needle was threaded into the left subclavian vein a wire threaded in position. The tract was dilated up in a triple-lumen central venous access catheter was threaded into the deep venous system. There was no resistance encountered. There was excellent blood flow through all 3 lm. Catheter was flushed with heparinized saline, and [facility] applied a 2-0 silk applied. Sterile dressing was applied. The abdomen was now exposed. Existing dressing removed, and abdomen prepped draped sterile fashion. Surgical plan and surgical timeout were conducted. All onel removed and midline PDS suture divided, exposing the peritoneal cavity. There was no evidence of perforation, bleeding or stool. There was however foul smell consistent ischemic bowel. We eviscerated the small bowel and the findings included the following: Intact jejunal anastomosis, with patchy areas of ischemia. Deep violaceous changes to the distal jejunum and ileum with patchy areas of early full-thickness, white ischemia. The terminal ileum and the cecum were violaceous but not not frankly ischemic. The mid ascending colon, transverse colon descending colon and sigmoid colon were all viable. Careful inspection of the retroperitoneum revealed no hematoma. There is a strong pulse of the aorta. We brought a hand-held Doppler onto the field and check for arterial pulsations in the small bowel mesentery and there were present at least to the first arcade consistent with a patent SMA, and first division branches. Even in the areas of full-thickness ischemia of the ileum, strong mesenteric arterial signal was appreciated. Nonetheless I felt like the mid to distal section of ileum needed to be resected as it was on its way to infarcting. Of note we took the patient off Bijan-Synephrine and she was able to maintain her blood pressure. We now proceeded to resect 75 cm of ileum. This was done with a CHIRAG 55 staplers and tying off the mesenteric pedicles with 3-0 Vicryl suture. The points of transection were chosen in a arbitrary fashion as there was no clear location line. Once this section of ileum was removed we now had approximately 5 cm from the ligament of Treitz to the first anastomosis created by Dr. Melgoza 24 hours prior. The distance from this anastomosis to the first new transection point was approximately 42 cm. The distance from the second new transection point to the ileo-cecal junction was approximately 15 cm. In summary the patient was felt to be left with approximately 90 cm of small bowel. We left the 2 transected staple lines intact and did not re-create an anastomosis. The peritoneal cavity was washed out vigorously. And there was no contamination. No drains were placed. We felt that a third look would be appropriate within 24 hours. The abdomen was left open, 4 sheets of Adaptic placed over the exposed small bowel viscera, several 2-0 Ethilon sutures placed across the wound VAC sponge and then overlying sealant installed and appropriate suction applied. Patient tolerated procedure well, taken to the intensive care unit in guarded condition, ventilated.
--- NOTE | 2019-01-28 17:48 | RADIOLOGY REPORT (SQ) ---
EXAM DESCRIPTION: CHEST SINGLE VIEW COMPLETED DATE/TIME: 01/28/2019 5:26 pm REASON FOR STUDY: Postintubation COMPARISON: 01/10/2019 EXAM PARAMETERS: NUMBER OF VIEWS: One view. TECHNIQUE: Single frontal radiographic view of the chest acquired. RADIATION DOSE: NA LIMITATIONS: None. FINDINGS: LUNGS AND PLEURA: Pulmonary edema. MEDIASTINUM AND HILAR STRUCTURES: No masses. Contour normal. HEART AND VASCULAR STRUCTURES: Cardiomegaly. BONES: No acute findings. HARDWARE: Endotracheal tube has its tip 2 cm above the reji. Right-sided PICC. Left subclavian li ne is present. An NG tube extends to the stomach. OTHER: No other significant finding. IMPRESSION: Cardiomegaly with pulmonary edema. TECHNICAL DOCUMENTATION: JOB ID: [id number] [employer]- All Rights Reserved Reading location - IP/workstation name: [email or web address]
--- NOTE | 2019-01-28 18:46 | PDOC DISCHARGE SUMMARY ---
Impression - Admit/DC Date/PCP Admission Date/Primary Care Provider: 01/11/19 00:02 LETA PRIEST DO Discharge Date: 01/28/19 - Discharge Diagnosis (1) Dehydration Is this a current diagnosis for this admission?: Yes (2) Acute metabolic encephalopathy Is this a current diagnosis for this admission?: Yes (3) Diarrhea Is this a current diagnosis for this admission?: Yes (4) Small bowel obstruction due to adhesions Is this a current diagnosis for this admission?: Yes (5) Hypomagnesemia Is this a current diagnosis for this admission?: Yes (6) Ischemic bowel disease Is this a current diagnosis for this admission?: Yes - Assessment Summary: 01/22/2019-there were many concerns voiced by the family. I have been involved in this patient's care before. She was in the intensive care unit. She has had recurrent hospitalizations. The family's intent is to have her go to [facility] for rehab. I believe she has not gotten out of bed for 6 months however we will need to discuss this with the family further. According to physical therapy evaluation she was extremely limited. It is hard to know if she would even qualify for long-term at this point. Consider a palliative care consult as well. - Additional Information Resuscitation Status: Full Code Discharge Diet: Other (Comments) - NPO Discharge Activity: Bedrest Referrals: [facility] [Outside] LETA PRIEST DO [Primary Care Provider] - 01/31/19 11:00 am Home Medications: Lisinopril [Prinivil 10 mg Tablet] 10 mg PO DAILY 12/27/18 Oxycodone HCl/Acetaminophen [Percocet 10-325 mg Tablet] 1 each PO Q6HP PRN 12/27/18 Atorvastatin Calcium [Lipitor 40 mg Tablet] 40 mg PO QHS 01/11/19 Diclofenac Sodium [Voltaren] 1 applic TP QIDP PRN 01/11/19 Fluticasone/Salmeterol [Advair 100-50 Diskus 14 Dose/Diskus] 1 inh IH Q12 Naproxen 500 mg PO Q12 01/11/19 Pantoprazole Sodium [Protonix [address] Tablet] 40 mg PO QAM 01/11/19 History of Present Illiness History of Present Illness: KAREN MALDONADO is a 58 year old female admitted several times for diarrhea, dehydration, renal failure. Has not had a GI work-up for a variety of reasons. Such as non-compliance, difficulty with transport. Admitted for same on 12/26. Dischraged to rehab but readmitted recently. 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 Went to the OR 01/21 where a segment of ischem ic bowel removed for ischemia, lysis of adhesions, internal hernia reduced. She has had a worsening metabolic acidosis from 20-14 and a rising lactate to 2.8. Taken back this afternoon for a second look where more bowel was removed for ischemia. In the opinion of both surgeons she needs vascular reconstruction to remaining small bowel not [facility]. DEEPTHI is not present secondary to old AAA repair. She is intubated, currently off pressors but had been on phenlyephrine until the OR today. Cortisol 25. Had been 44 on last admission. No steroids due to recent surgery and malnutrition. There is 35cm from lig of Trietz to 1st anastomosis and 45cm to a stapled blind pouch. There is a gap to the next blind pouch and another 10-15 cm to cecum. Hospital Course Hospital Course: Her hospital course has been rene with renal failur resolved, malnutrition, hypoadrenalism lately. She is debilitated and encephalopathic. She has had these 2 laparotomies and is now o TPN. She is intubated in anticipation of more surgery which the family is aware of and approves. Physical Exam Vital Signs: Temp Pulse Resp BP Pulse Ox 99.0 F 119 H 8 L 108/62 94 01/28/19 12:00 01/28/19 14:00 01/28/19 14:54 01/28/19 14:54 01/28/19 15:00 Intake & Output 01/27/19 01/28/19 01/29/19 06:59 06:59 06:59 Intake Total 5878 950 Output Total 3400 65 Balance 1478 885 Weight 83.6 kg 83.6 kg General appearance: PRESENT: no acute distress Exam: Sedated on ventilator Eye exam: PRESENT: conjunctiva pink, EOMI, PERRLA. ABSENT: scleral icterus Ear exam: PRESENT: normal external ear exam Mouth exam: PRESENT: moist, tongue midline, other - ETT present Respiratory exam: PRESENT: clear to auscultation abraham, unlabored Cardiovascular exam: PRESENT: tachycardia Vascular exam: PRESENT: normal capillary refill GI/Abdominal exam: PRESENT: hypoactive bowel sounds, other - Abdominal wound with wound vac in place Rectal exam: PRESENT: deferred Gentrourinary exam: PRESENT: indwelling catheter Extremities exam: PRESENT: pedal edema Musculoskeletal exam: PRESENT: normal inspection Neurological exam: PRESENT: other - Sedated with Diprivan Skin exam: PRESENT: normal color Results Laboratory Results: WBC 6.7 10^3/uL (4.0-10.5) 01/28/19 04:26 RBC 3.19 10^6/uL (3.72-5.28) L 01/28/19 04:26 Hgb 9.2 g/dL (12.0-15.5) L 01/28/19 04:26 Hct 28.4 % (36.0-47.0) L 01/28/19 04:26 MCV 89 fl (80-97) 01/28/19 04:26 MCH 28.7 pg (27.0-33.4) 01/28/19 04:26 MCHC 32.3 g/dL (32.0-36.0) 01/28/19 04:26 RDW 19.7 % (11.5-14.0) H 01/28/19 04:26 Plt Count 357 10^3/uL (150-450) 01/28/19 04:26 Lymph % (Auto) Not Reportable 01/28/19 04:26 [place] % (Auto) Not Reportable 01/28/19 04:26 Eos % (Auto) Not Reportable 01/28/19 04:26 Baso % (Auto) Not Reportable 01/28/19 04:26 Reticulocyte # 0.037 10^6/uL (0.028-0.122) 01/23/19 06:15 Absolute Neuts (auto) Not Reportable 01/28/19 04:26 Absolute Lymphs (auto) Not Reportable 01/28/19 04:26 Absolute Monos (auto) Not Reportable 01/28/19 04:26 Absolute Eos (auto) Not Reportable 01/28/19 04:26 Absolute Basos (auto) Not Reportable 01/28/19 04:26 Total Counted 100 01/28/19 04:26 Seg Neutrophils % Not Reportable 01/28/19 04:26 Seg Neuts % (Manual) 34 % (42-78) L 01/28/19 04:26 Band Neutrophils % 37 % (3-5) H D 01/28/19 04:26 Lymphocytes % (Manual) 17 % (13-45) 01/28/19 04:26 Monocytes % (Manual) 6 % (3-13) 01/28/19 04:26 Eosinophils % (Manual) 0 % (0-6) 01/28/19 04:26 Basophils % (Manual) 0 % (0-2) 01/28/19 04:26 Metamyelocytes % 5 % (0-1) H 01/28/19 04:26 Myelocytes % 1 % (0) H 01/28/19 04:26 Abs Neuts (Manual) 5.2 10^3/uL (1.7-8.2) 01/28/19 04:26 Abs Lymphs (Manual) 1.1 10^3/uL (0.5-4.7) 01/28/19 04:26 Abs Monocytes (Manual) 0.4 10^3/uL (0.1-1.4) 01/28/19 04:26 Absolute Eos (Manual) 0.0 10^3/uL (0.0-0.6) 01/28/19 04:26 Abs Basophils (Manual) 0.0 10^3/uL (0.0-0.2) 01/28/19 04:26 Smudge Cells PRESENT 01/27/19 08:00 Toxic Granulation 1+ 01/27/19 08:00 Toxic Vacuolation PRESENT 01/27/19 08:00 Clumped Platelets PRESENT 01/12/19 06:30 Platelet Comment ADEQUATE 01/28/19 04:26 Hypochromasia 1+ 01/11/19 05:00 Anisocytosis 2+ 01/28/19 04:26 Ovalocytes SLIGHT 01/27/19 08:00 Retic Count (auto) 1.29 % (0.66-2.85) 01/23/19 06:15 PT 19.6 SEC (11.4-15.4) H 01/28/19 04:26 INR 1.64 01/28/19 04:26 APTT 50.7 SEC (23.5-35.8) H 01/28/19 04:26 VBG pH 7.21 (7.30-7.42) L 01/10/19 19:47 VBG pCO2 51.5 mmHg (35-63) 01/10/19 19:47 VBG HCO3 20.0 mmol/L (20-32) 01/10/19 19:47 VBG Base Excess -7.9 mmol/L 01/10/19 19:47 Sodium 141.5 mmol/L (137-145) 01/28/19 12:00 Potassium 4.0 mmol/L (3.6-5.0) 01/28/19 12:00 Chloride 116 mmol/L (98-107) H 01/28/19 12:00 Carbon Dioxide 16 mmol/L (22-30) L 01/28/19 12:00 Anion Gap 10 (5-19) 01/28/19 12:00 BUN 11 mg/dL (7-20) 01/28/19 12:00 Creatinine 1.23 mg/dL (0.52-1.25) 01/28/19 12:00 Est GFR ( Amer) 54 (>60) L 01/28/19 12:00 Est GFR (MDRD) Non-Af 45 (>60) L 01/28/19 12:00 Glucose 102 mg/dL (75-110) 01/28/19 12:00 POC Glucose 145 mg/dL (70-110) H 01/28/19 04:22 Lactic Acid 2.8 mmol/L (0.7-2.1) H 01/28/19 12:00 Calcium 7.5 mg/dL (8.4-10.2) L 01/28/19 12:00 Phosphorus 2.8 mg/dL (2.5-4.5) 01/22/19 05:53 Magnesium 1.2 mg/dL (1.6-2.3) L* 01/27/19 21:23 Iron 10.9 ug/dL (37-170) L 01/23/19 06:15 TIBC 140 ug/dL (250-450) L 01/23/19 06:15 % Saturation 8 % 01/23/19 06:15 Ferritin 96.60 ng/mL (11.1-264.0) 01/23/19 06:15 Total Bilirubin 0.6 mg/dL (0.2-1.3) 01/28/19 04:26 Direct Bilirubin 0.4 mg/dL (0.0-0.4) 01/28/19 04:26 Neonat Total Bilirubin Not Reportable 01/28/19 04:26 Neonat Direct Bilirubin Not Reportable 01/28/19 04:26 Neonat Indirect Bili Not Reportable 01/28/19 04:26 AST 18 U/L (14-36) 01/28/19 04:26 ALT 10 U/L (<35) 01/28/19 04:26 Alkaline Phosphatase 50 U/L (38-126) 01/28/19 04:26 Creatine Kinase 38 U/L (30-135) 01/10/19 19:47 CK-MB (CK-2) 0.69 ng/mL (<4.55) 01/10/19 19:47 Troponin I < 0.012 ng/mL 01/10/19 19:47 Total Protein 4.6 g/dL (6.3-8.2) L 01/28/19 04:26 Albumin 2.3 g/dL (3.5-5.0) L 01/28/19 04:26 Prealbumin 6.6 mg/dL (17.6-36.0) L 01/25/19 05:29 Vitamin B12 > 1000.0 pg/mL (239-931) H 01/23/19 06:15 Folate 2.94 ng/mL (>2.76) 01/23/19 06:15 Random Cortisol 24.50 ug/dL (None Established) 01/28/19 12:00 Urine Color YELLOW 01/23/19 10:36 Urine Appearance SLIGHTLY-CLOUDY 01/23/19 10:36 Urine pH 6.0 (5.0-9.0) 01/23/19 10:36 Ur Specific [place] 1.006 01/23/19 10:36 Urine Protein NEGATIVE mg/dL (NEGATIVE) 01/23/19 10:36 Urine Glucose (UA) NEGATIVE mg/dL (NEGATIVE) 01/23/19 10:36 Urine Ketones NEGATIVE mg/dL (NEGATIVE) 01/23/19 10:36 Urine Blood SMALL (NEGATIVE) H 01/23/19 10:36 Urine Nitrite NEGATIVE (NEGATIVE) 01/10/19 19:42 Urine Nitrite (Reflex) NEGATIVE (NEGATIVE) 01/23/19 10:36 Urine Bilirubin NEGATIVE (NEGATIVE) 01/23/19 10:36 Urine Urobilinogen NEGATIVE mg/dL (<2.0) 01/23/19 10:36 Ur Leukocyte Esterase MODERATE (NEGATIVE) H 01/10/19 19:42 Leukocyte Esterase Rfl LARGE (NEGATIVE) H 01/23/19 10:36 Urine WBC (Auto) 38 /HPF 01/10/19 19:42 Urine RBC (Auto) 12 /HPF 01/23/19 10:36 U Hyaline Cast (Auto) 3 /LPF 01/10/19 19:42 Urine Bacteria (Auto) TRACE /HPF 01/23/19 10:36 Urine WBC (Reflex) 108 /HPF 01/23/19 10:36 Urine WBC Clumps OCC /HPF 01/10/19 19:42 Squamous Epi Cells Auto <1 /HPF 01/23/19 10:36 Amorphous Sediment Auto TRACE /HPF 01/10/19 19:42 Urine Mucus (Auto) RARE /LPF 01/23/19 10:36 Urine Yeast (Budding) PRESENT /HPF 01/23/19 10:36 Urine Ascorbic Acid NEGATIVE (NEGATIVE) 01/23/19 10:36 Stl C. Difficile GDH Ag POSITIVE (NEGATIVE) 01/24/19 03:15 Stl C.difficile Tox A&B NEGATIVE (NEGATIVE) 01/24/19 03:15 Stl C.difficile Tox PCR NEGATIVE (NEGATIVE) 01/24/19 03:15 Slides for Path Review PATHOLOGIST REVIEWED 01/28/19 04:26 Blood Type O NEGATIVE 01/27/19 13:57 Blood Type Confirm O NEGATIVE 01/27/19 13:57 Antibody Screen POSITIVE 01/27/19 13:57 Antibody Identification Anti-K 01/27/19 13:57 Crossmatch See Detail 01/27/19 13:57 01/10/19 19:47 CK-MB (CK-2) 0.69 Troponin I < 0.012 Impressions: Chest X-Ray 01/10/19 00:00 IMPRESSION: No acute abnormality is identified. Guidance Fluoroscopy 01/11/19 00:00 IMPRESSION: SUCCESSFUL PLACEMENT OF A 5 FR DUAL LUMEN 33 CM PICC IN THE RIGHT BASILIC VEIN. Interventional Vascular Procedure 01/11/19 00:00 IMPRESSION: SUCCESSFUL PLACEMENT OF A 5 FR DUAL LUMEN 33 CM PICC IN THE RIGHT BASILIC VEIN. PICC Line Insertion 01/11/19 00:00 IMPRESSION: SUCCESSFUL PLACEMENT OF A 5 FR DUAL LUMEN 33 CM PICC IN THE RIGHT BASILIC VEIN. 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 NO APPARENT ACUTE FINDINGS. Abdomen/Pelvis CT 01/17/19 00:00 IMPRESSION: 1. Small right pleural effusion. 2. Stable left adrenal mass. 3. Atrophic left kidney. 4. Partial small bowel obstruction. There is also some fluid in the colon. 5. Small amount of ascites. KUB X-Ray 01/19/19 10:05 IMPRESSION: NG tube tip in the stomach. KUB X-Ray 01/20/19 00:00 IMPRESSION: Mild dilatation of small bowel loops. Nasogastric tube in the stomach. No significant change. Upper GI and Small Bowel X-Ray 01/21/19 00:00 IMPRESSION: 1. POSSIBLE MUCOSAL THICKENING OF THE BODY OF THE STOMACH EXTENDING INTO THE FUNDUS, THIS MAY BE DUE TO POOR DISTENTION FROM THE SINGLE CONTRAST STUDY. ENDOSCOPY IS RECOMMENDED IF CLINICALLY INDICATED. 2. POSSIBLE TRANSITION ZONE IN THE DISTAL JEJUNUM OR PROXIMAL ILEUM LOCATED IN THE LEFT LOWER QUADRANT. THERE IS SLIGHTLY DILATED LOOPS OF SMALL BOWEL PROXIMALLY WITH NORMAL APPEARING SMALL BOWEL DISTAL TO THIS REGION. NO SMALL BOWEL OBSTRUCTION IS SEEN. Abdomen X-Ray 01/22/19 00:00 IMPRESSION: NG tube as described. KUB X-Ray 01/23/19 00:00 IMPRESSION: Worsening dilated small bowel loops within the central abdomen suggestive of small bowel obstructive process. KUB X-Ray 01/23/19 17:57 IMPRESSION: Nasogastric tube in the stomach. Abdomen X-Ray 01/24/19 00:00 IMPRESSION: Less distension compared to yesterday. Abdomen/Pelvis CT 01/24/19 00:00 IMPRESSION: 1. There is a probable partial obstruction of the proximal small bowel overlying the aortic aneurysm sac (series 2, image 42) with generally decompressed small bowel and colon distal to this point. There is significant distal gas and fluid to the rectum, evidencing incomplete obstruction. 2. Small volume four-quadrant ascites. Pleural effusions and anasarca. 3. Chronic incidental findings as above. KUB X-Ray 01/27/19 08:25 IMPRESSION: Progressive small bowel gaseous distension. Worrisome for worsening of the obstruction. Plan Health Concerns: Malnutrition, short gut syndrome. Need for vascular reconstruction and reconnection of bowel. Extubation Plan of Treatment: Plan to transfer to [facility] on the service of Dr. Alfredo. Goals: Reanastomose bowel Stroke Is this a Stroke Patient?: No Stroke Pt being discharged on Anti-thrombolytic therapy?: No Reason(s) for not prescribing Anti-thrombolytic therapy:: Not indicated Acute Heart Failure - Is this a Heart Failure Patient?: No Documentation of LVEF assessment?: No, Document reason
[2019-01-28 21:28] VITALS: BP 117/59
== END 2019-01-28 20:15 | disposition short-term general hospital (02) | DRG 853 ==
LOC: ER 19:39 → EH 01-11 00:02 → ICU 01-11 01:58 → 4N 01-13 12:58 → ICU 01-27 18:20
PROVIDERS: ADMIT Emergency Medicine; ATTEND Anesthesiology
PROC: 06HM33Z Insertion of Infusion Device into Right Femoral Vein, Percutaneous Approach (ICD-10-PCS; 2019-01-11)
PROC: 02HV33Z Insertion of Infusion Device into Superior Vena Cava, Percutaneous Approach (ICD-10-PCS; 2019-01-11)
PROC: B548ZZA Ultrasonography of Superior Vena Cava, Guidance (ICD-10-PCS; 2019-01-11)
PROC: B518ZZA Fluoroscopy of Superior Vena Cava, Guidance (ICD-10-PCS; 2019-01-11)
PROC: 0D9P80Z Drainage of Rectum with Drainage Device, Via Natural or Artificial Opening Endoscopic (ICD-10-PCS; 2019-01-15)
PROC: 0D9670Z Drainage of Stomach with Drainage Device, Via Natural or Artificial Opening (ICD-10-PCS; 2019-01-19)
PROC: 30233N1 Transfusion of Nonautologous Red Blood Cells into Peripheral Vein, Percutaneous Approach (ICD-10-PCS; 2019-01-23)
PROC: 0DT80ZZ Resection of Small Intestine, Open Approach (ICD-10-PCS; 2019-01-27)
PROC: 0DN80ZZ Release Small Intestine, Open Approach (ICD-10-PCS; principal; 2019-01-27 13:30)
PROC: 0DBB0ZX Excision of Ileum, Open Approach, Diagnostic (ICD-10-PCS; 2019-01-28)
PROC: 0W9G00Z Drainage of Peritoneal Cavity with Drainage Device, Open Approach (ICD-10-PCS; 2019-01-28)
PROC: 30233K1 Transfusion of Nonautologous Frozen Plasma into Peripheral Vein, Percutaneous Approach (ICD-10-PCS; 2019-01-28)
PROC: 05HC33Z Insertion of Infusion Device into Left Basilic Vein, Percutaneous Approach (ICD-10-PCS; 2019-01-28)
PROC: 3E0436Z Introduction of Nutritional Substance into Central Vein, Percutaneous Approach (ICD-10-PCS; 2019-01-28)
DX: A41.9 Sepsis, unspecified organism (principal); G93.41 Metabolic encephalopathy; L89.154 Pressure ulcer of sacral region, stage 4; K56.51 Intestinal adhesions [bands], with partial obstruction; K55.8 Other vascular disorders of intestine; N17.9 Acute kidney failure, unspecified; N11.9 Chronic tubulo-interstitial nephritis, unspecified; N18.4 Chronic kidney disease, stage 4 (severe); F11.20 Opioid dependence, uncomplicated; A04.72 Enterocolitis due to Clostridium difficile, not specified as recurrent; N39.0 Urinary tract infection, site not specified; E46 Unspecified protein-calorie malnutrition; K91.2 Postsurgical malabsorption, not elsewhere classified; E78.5 Hyperlipidemia, unspecified; J44.9 Chronic obstructive pulmonary disease, unspecified; Z86.73 Personal history of transient ischemic attack (TIA), and cerebral infarction without residual deficits; M19.90 Unspecified osteoarthritis, unspecified site; F17.200 Nicotine dependence, unspecified, uncomplicated; F32.9 Major depressive disorder, single episode, unspecified; E86.0 Dehydration; G89.4 Chronic pain syndrome; M47.896 Other spondylosis, lumbar region; E87.6 Hypokalemia; D72.825 Bandemia; B37.3 Candidiasis of vulva and vagina; B95.2 Enterococcus as the cause of diseases classified elsewhere; L24.9 Irritant contact dermatitis, unspecified cause; E83.51 Hypocalcemia; D64.9 Anemia, unspecified; E83.42 Hypomagnesemia; Z90.710 Acquired absence of both cervix and uterus; Z90.49 Acquired absence of other specified parts of digestive tract
CPT/HCPCS: 00790; 36415; 36430; 36569; 51701; 71045; 72110; 74018; 74019; 74176; 74177; 74249; 76937; 77001; 80048; 80053; 81001; 82533; 82550; 82553; 82607; 82728; 82746; 82803; 82962; 83540; 83550; 83605; 83735; 84100; 84134; 84484; 85025; 85027; 85045; 85610; 85730; 86850; 86870; 86900; 86901; 86902; 86920; 86922; 87040; 87045; 87070; 87086; 87088; 87186; 87205; 87324; 87449; 87493; 88307; 93005; 93010; 94002; 96361; 96365; 96367; 96372; 99283; 99291; C1751; C1765; C1769; C9113; C9290; J0131; J0290; J0330; J0610; J0696; J1170; J1450; J1642; J1644; J1720; J1756; J1885; J1940; J2060; J2185; J2250; J2270; J2310; J2370; J2405; J2543; J2550; J2704; J3010; J3475; J3480; J3490; J7030; J7040; J7042; J7050; J7060; J7120; J7121; P9016; P9017; P9047